=== PATIENT | male | born 1965 | race Caucasian/White ===

== ENCOUNTER → 2017-05-08 07:00 | Outpatient (CLI) | payer MEDICARE, MEDICAID, SELFPAY ==
--- NOTE | 2017-05-08 07:45 | MRI_ITS ---
STUDY: MRI RIGHT KNEE REASON FOR EXAM: Male, 51 years old. History of prior surgery. Difficulty walking with swelling and pain of right knee. History of knee buckling. TECHNIQUE: Standardized fat and water weighted pulse sequences were obtained in all 3 orthogonal planes. COMPARISON: X-rays of the right knee dated March 04, 2014. FINDINGS: There is a complex tear of the posterior horn of the medial meniscus (sagittal series 4 images 4-9, coronal series 6 images 8-12). There is mild extrusion of the body and anterior horn of the medial meniscus with mild thinning of the articular cartilage of the medial femorotibial compartment (coronal series 6 images 8-17). Normal medial collateral ligamentous complex (MCL). Normal distal semimembranosus, gracilis and semitendinosus tendons. Normal lateral meniscus. There is mild thinning of the articular cartilage of the lateral femorotibial compartment (coronal series 6 images 11-15). Normal lateral femoral condyle and tibial plateau. Normal proximal tibiofibular articulation. Normal lateral collateral (fibular) ligament. Normal popliteus tendon. Normal biceps femoris tendon. Normal anterior cruciate ligament (ACL). Normal posterior cruciate ligament (PCL). Normal congruent patellofemoral articulation. There is marked focal thinning of the articular cartilage of the medial patellar facet with subchondral bone marrow edema ((axial series 2 images 9-14). Normal medial and lateral patellar retinaculum. Normal quadriceps tendon. Normal patellar tendon. Normal Hoffa's fat pad. There is a joint effusion with a septated popliteal cyst (axial series 2 images A-16). The soft tissues are unremarkable. The otherwise visualized osseous structures are unremarkable. MRI/Lower Ext Joint Only (Routine) IMPRESSION: Complex tear of the posterior horn of the medial meniscus. Mild extrusion of the body and anterior horn of the medial meniscus. Mild thinning of the articular cartilage of the medial femorotibial compartment. Mild thinning of the articular cartilage of the lateral femorotibial compartment. Marked focal thinning of the articular cartilage of the medial patellar facet. Joint effusion with popliteal cyst. Electronically Signed: Rupesh Rojas MD at 13:34 EDT , Service support ,
== END ==
PROVIDERS: Family Provider Family Medicine; PCP Family Medicine; Visit Provider Family Medicine
DX: M23.90 Unspecified internal derangement of unspecified knee (principal)
CPT/HCPCS: 73721

== ENCOUNTER → 2017-05-16 12:56 | Outpatient (CLI) | payer MEDICARE, MEDICAID, SELFPAY ==
--- NOTE | 2017-05-16 12:59 | RAD_ITS ---
STUDY: X-RAY - RIGHT KNEE REASON FOR EXAM: Male, 51 years old. Chronic pain TECHNIQUE: Four view(s) of the knee were obtained. COMPARISON: March 04, 2014 FINDINGS: The distal femur is unremarkable. The proximal tibia is unremarkable. There is moderate narrowing of the medial femorotibial compartment. There is mild narrowing of the lateral femorotibial compartment. Normal patellofemoral articulation. There is minimal fullness above the patella. The soft tissue structures are unremarkable. RAD/Knee 4 or More Views IMPRESSION: There are degenerative changes with a medial predominance. There is a small joint effusion. Electronically Signed: Yoli Lira MD at 12:49 EDT Tel Direct: [phone], Service support ,
== END ==
PROVIDERS: Family Provider Family Medicine; PCP Family Medicine; Visit Provider Orthopaedic Surgery
DX: M25.561 Pain in right knee (principal)
CPT/HCPCS: 73564

== ENCOUNTER → 2017-09-12 07:01 | Outpatient (CLI) | payer MEDICARE, MEDICAID, SELFPAY ==
[2017-09-12 10:34] LABS: Hematocrit 46.8 % (40-54); Hemoglobin 15.8 g/dl (13.0-16.5); Mean Corp Hgb Conc 33.8 g/gl (32-36); Mean Corpuscular Hgb 29.8 pg (27.0-32.0); Mean Corpuscular Volume 88.3 fL (80-94); Mean Platelet Vol. 9.7 fl (6.2-12.0); Platelet Count 255 K/mm3 (150-450); RBC Distribution Width CV 13.9 % (11.6-14.6); RBC Distribution Width SD 44.6 fl (35.1-43.9); White Blood Count 12.8 K/mm3 (4.4-11.0)
[2017-09-12 10:37] LABS: Scan Indicated on CBC? Y/N NO
[2017-09-12 10:44] LABS: Magnesium 1.9 mg/dL (1.6-2.6)
[2017-09-12 10:50] LABS: Vitamin D,25 Hydroxy 33.7 ng/mL (29.95-100.01)
[2017-09-12 10:51] LABS: Protein, Urine (Random) 551.7 mg/dL (<11.9); Protein:Creat Ratio 4522 mg/g CRE (0-200)
[2017-09-15 13:11] LABS: Tacrolimus (FK506) 2.3 ng/mL (2.0-20.0)
== END ==
PROVIDERS: Family Provider Family Medicine; PCP Family Medicine; Visit Provider Internal Medicine Nephrology
DX: N18.2 Chronic kidney disease, stage 2 (mild) (principal); N25.81 Secondary hyperparathyroidism of renal origin; D89.9 Disorder involving the immune mechanism, unspecified
CPT/HCPCS: 36415; 80197; 82306; 82570; 83735; 83970; 84156; 85027

== ENCOUNTER → 2017-10-01 10:46 | Outpatient (CLI) | payer MEDICARE, MEDICAID, SELFPAY ==
[2017-10-01 12:09] LABS: Color, Urine Yellow (Yellow); Glucose, Dipstick Normal (Normal); Ketone-Dipstick 5 mg/dl (Negative); Leukocyte Esterase-Dipstick 25 /ul (Negative); Nitrite-Dipstick Negative (Negative); Occult Blood-Urine 10 /ul (Negative); Protein-Dipstick 500 mg/dl (Negative); Urine Bilirubin Dipstick Negative (Negative); Urine Clarity Clear (Clear); Urine Urobilinogen Normal (Normal)
[2017-10-01 12:51] LABS: Albumin, Serum 2.9 g/dL (3.2-5.0); BUN 21 mg/dL (7-18); BUN/Creat Ratio 12.5 RATIO (10-20); Calcium,Total 8.6 mg/dL (8.5-10.1); Chloride 111 mmol/L (98-107); Cholesterol 196 mg/dL (200); Creatinine, Serum 1.68 mg/dL (0.70-1.30); EST Glomerular Filtration Rate 46 mL/min (>60); Est Glom Filt Rate - Afr Amer 55 mL/min (>60); Glucose 87 mg/dL (74-106); High Density Lipoprotein 55 mg/dL; Phosphorus 2.9 mg/dL (2.5-4.9); Potassium 3.7 mmol/L (3.5-5.1); Sodium Level 142 mmol/L (136-145); Triglycerides 163 mg/dL; Very Low Density Lipoprotein 33 mg/dL (5-40)
[2017-10-01 12:52] LABS: Protein, Urine (Random) 461.9 mg/dL (<11.9); Protein:Creat Ratio 2321 mg/g CRE (0-200)
[2017-10-03 11:18] LABS: Tacrolimus (FK506) 4.8 ng/mL (2.0-20.0)
== END ==
PROVIDERS: Internal Medicine Nephrology; Family Provider Family Medicine; PCP Family Medicine; Visit Provider Family Medicine
DX: I12.9 Hypertensive chronic kidney disease with stage 1 through stage 4 chronic kidney disease, or unspecified chronic kidney disease (principal); N18.2 Chronic kidney disease, stage 2 (mild); D89.9 Disorder involving the immune mechanism, unspecified; Z94.0 Kidney transplant status
CPT/HCPCS: 36415; 80061; 80069; 80197; 81002; 82043; 82570; 84156

== ENCOUNTER → 2017-11-28 09:42 | Outpatient (CLI) | payer MEDICARE, MEDICAID, SELFPAY ==
[2017-11-28 12:37] LABS: Protein:Creat Ratio 1743 mg/g CRE (0-200)
[2017-11-28 13:03] LABS: Albumin, Serum 3.1 g/dL (3.2-5.0); BUN 12 mg/dL (7-18); BUN/Creat Ratio 8.9 RATIO (10-20); Calcium,Total 8.6 mg/dL (8.5-10.1); Chloride 107 mmol/L (98-107); Creatinine, Serum 1.35 mg/dL (0.70-1.30); EST Glomerular Filtration Rate 59 mL/min (>60); Est Glom Filt Rate - Afr Amer 71 mL/min (>60); Glucose 86 mg/dL (74-106); Phosphorus 2.2 mg/dL (2.5-4.9); Potassium 3.6 mmol/L (3.5-5.1); Sodium Level 141 mmol/L (136-145)
[2017-11-30 09:13] LABS: Tacrolimus (FK506) 5.6 ng/mL (2.0-20.0)
== END ==
PROVIDERS: Family Provider Family Medicine; PCP Family Medicine; Referring Provider Internal Medicine Nephrology; Visit Provider Internal Medicine Nephrology
DX: N18.2 Chronic kidney disease, stage 2 (mild) (principal); D89.9 Disorder involving the immune mechanism, unspecified
CPT/HCPCS: 36415; 80069; 80197; 82570; 84156

== ENCOUNTER 2017-12-22 07:01 | Emergency (ER) | payer MEDICARE, MEDICAID, SELFPAY ==
[2017-12-22 07:02] VITALS: BP 157/105; PULSE 102; RESP 17; TEMP 36.8; O2SAT 97
--- NOTE | 2017-12-22 07:35 | ED.VIS.GEN ---
History of Present Illness Chief Complaint: Other, Pain/Inj Informant: Patient Onset: Days - 3 Context: Gradual Onset Timing: Continuous Quality: ache Location: bilat neck Current Severity: Severe Maximum Severity: Severe Worsened by: moving head Relieved by: nothing Associated Symptoms: muscle spasms. no numb/weakness in extremities. no direct injury. 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 States his low back started hurting a little in the beginning but that is not an issue as much as his neck, which has been gradually getting worse and worse, now is spasming in giving him severe pain. - Past Medical History (1) History of renal transplant Status: Chronic Comment: 2005 for congenital defect (2) Hyperlipidemia Status: Chronic (3) Hypertension Status: Chronic Past Medical History - Allergies and Home Meds Allergies/Adverse Reactions: Allergies No Known Allergies Allergy (Verified 12/22/17 07:04) Primary Care Physician: Jesus Collins MD [Primary Care Provider] - Smoking Status: Never smoker Review of Systems General: Denies: Chills, Fever Gastrointestinal: Denies: Nausea, Vomiting Musculoskeletal: Reports: Neck pain, Back pain. Denies: Swelling, Extremity Pain Skin: Denies: Rash, Wounds Neurological: Denies: Headache, Weakness, Parasthesia, Numbness Physical Exam Vital Signs/Narrative: Vital Signs Temp Pulse Resp BP Pulse Ox 12/22/17 07:02 98.2 F 102 H 17 157/105 H 97 Inital Vital Signs reviewed: Yes General: Well nourished, Well developed Head: Normocephalic, Atraumatic Eyes: Perrl, EOMI ENT: Moist mucous membranes, No rhinorrhea Neck: No lymphadenopathy, No JVD, - - Tenderness in the lateral neck musculature, mid neck and into the top of the trapezius toward the shoulders, no bony tenderness, palpation causes spasms and severe pain. Back: Normal Inspection. Negative for: Spinal tenderness Extremities: Nontender, No edema Skin: Normal color, No rash Neurological: Alert, Oriented x3, Cranial nerves II-XII grossly intact, Normal Strength, Normal Sensation, Normal Gait Psychological: Normal affect Diagnostic/Tx/Re-eval - Medical Decision Making Consistent with myofascial strain with muscle spasms. Will treat with Norflex and morphine, along with Zofran prophylaxis. Avoiding Toradol due to his renal transplant. We will give him a prescription for analgesics and a work note. ED Disposition - Plan for ED Patient: Disposition: Home or Assisted Living Chief Complaint: Other, Pain/Inj Diagnosis: Acute cervical myofascial strain Prescriptions: Hydrocodone Bitart/Apap 5-325 [[place] 5MG-325MG] 1 tablet PO Q4H PRN PRN 2 Days #10 tablet PRN Reason: Pain Cyclobenzaprine [Flexeril] 10 mg PO TID PRN #20 tablet PRN Reason: Muscle Spasm Referrals: Jesus Collins MD [Primary Care Provider] - 1 Week if not improving
--- NOTE | 2017-12-22 07:41 | ED.DCSUM_ITS ---
History of Present Illness Chief Complaint: Other, Pain/Inj Informant: Patient Onset: Days - 3 Context: Gradual Onset Timing: Continuous Quality: ache Location: bilat neck Current Severity: Severe Maximum Severity: Severe Worsened by: moving head Relieved by: nothing Associated Symptoms: muscle spasms. no numb/weakness in extremities. no direct injury. 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 States his low back started hurting a little in the beginning but that is not an issue as much as his neck, which has been gradually getting worse and worse, now is spasming in giving him severe pain. - Past Medical History (1) History of renal transplant Status: Chronic Comment: 2005 for congenital defect (2) Hyperlipidemia Status: Chronic (3) Hypertension Status: Chronic Past Medical History - Allergies and Home Meds Allergies/Adverse Reactions: Allergies No Known Allergies Allergy (Verified 12/22/17 07:04) Primary Care Physician: Jesus Collins MD [Primary Care Provider] - Smoking Status: Never smoker Review of Systems General: Denies: Chills, Fever Gastrointestinal: Denies: Nausea, Vomiting Musculoskeletal: Reports: Neck pain, Back pain. Denies: Swelling, Extremity Pain Skin: Denies: Rash, Wounds Neurological: Denies: Headache, Weakness, Parasthesia, Numbness Physical Exam Vital Signs/Narrative: Vital Signs Temp Pulse Resp BP Pulse Ox 12/22/17 07:02 98.2 F 102 H 17 157/105 H 97 Inital Vital Signs reviewed: Yes General: Well nourished, Well developed Head: Normocephalic, Atraumatic Eyes: Perrl, EOMI ENT: Moist mucous membranes, No rhinorrhea Neck: No lymphadenopathy, No JVD, - - Tenderness in the lateral neck musculature, mid neck and into the top of the trapezius toward the shoulders, no bony tenderness, palpation causes spasms and severe pain. Back: Normal Inspection. Negative for: Spinal tenderness Extremities: Nontender, No edema Skin: Normal color, No rash Neurological: Alert, Oriented x3, Cranial nerves II-XII grossly intact, Normal Strength, Normal Sensation, Normal Gait Psychological: Normal affect Diagnostic/Tx/Re-eval - Medical Decision Making Consistent with myofascial strain with muscle spasms. Will treat with Norflex and morphine, along with Zofran prophylaxis. Avoiding Toradol due to his renal transplant. We will give him a prescription for analgesics and a work note. ED Disposition - Plan for ED Patient: Disposition: Home or Assisted Living Chief Complaint: Other, Pain/Inj Diagnosis: Acute cervical myofascial strain Prescriptions: Hydrocodone Bitart/Apap 5-325 [[place] 5MG-325MG] 1 tablet PO Q4H PRN PRN 2 Days #10 tablet PRN Reason: Pain Cyclobenzaprine [Flexeril] 10 mg PO TID PRN #20 tablet PRN Reason: Muscle Spasm Referrals: Jesus Collins MD [Primary Care Provider] - 1 Week if not improving
[2017-12-22] MEDS: Ondansetron ODT 4 MG Tablet 8 MG PO (07:45)
[2017-12-22] MEDS: morphine 10 MG/ML Syringe SC (07:45)
[2017-12-22] MEDS: Orphenadrine 60 MG/2 ML Ampul IM (07:45)
--- NOTE | 2017-12-22 07:48 | ED.DCSUM_ITS ---
- ER Visit Summary Discharge papers only -- see other dictation for H&P. ED Disposition - Plan for ED Patient: Disposition: Home or Assisted Living Chief Complaint: Other, Pain/Inj Diagnosis: Acute cervical myofascial strain Instructions: ED Sprain Strain Neck Prescriptions: Hydrocodone Bitart/Apap 5-325 [[place] 5MG-325MG] 1 tablet PO Q4H PRN PRN 2 Days #10 tablet PRN Reason: Pain Cyclobenzaprine [Flexeril] 10 mg PO TID PRN #20 tablet PRN Reason: Muscle Spasm Referrals: Jesus Collins MD [Primary Care Provider] - 1 Week if not improving
[2017-12-22 08:46] VITALS: PULSE 98; RESP 16
== END 2017-12-22 08:46 | disposition home or self-care (01) ==
PROVIDERS: Emergency Provider Emergency Medicine; Family Provider Family Medicine; PCP Family Medicine
DX: S16.1XXA Strain of muscle, fascia and tendon at neck level, initial encounter (principal); E78.5 Hyperlipidemia, unspecified; I10 Essential (primary) hypertension; Z94.0 Kidney transplant status; Z79.82 Long term (current) use of aspirin; Z79.899 Other long term (current) drug therapy; X50.3XXA Overexertion from repetitive movements, initial encounter; X50.1XXA Overexertion from prolonged static or awkward postures, initial encounter; Y93.89 Activity, other specified; Y92.89 Other specified places as the place of occurrence of the external cause; Y99.0 Civilian activity done for income or pay
CPT/HCPCS: 96372; 99282

== ENCOUNTER → 2017-12-27 08:03 | Outpatient (CLI) | payer MEDICARE, MEDICAID, SELFPAY ==
--- NOTE | 2017-12-27 08:05 | RAD_ITS ---
STUDY: X-RAY - CERVICAL SPINE REASON FOR EXAM: Male, 52 years old. Neck pain x1 week after working on ceiling, unable to raise chin up, limited range of motion. TECHNIQUE: 7 view(s) of the cervical spine were obtained. COMPARISON: CT cervical spine 04/29/2016. FINDINGS: Normal anterior atlantoaxial articulation. Normal odontoid process. There is straightening of the normal cervical lordosis. Mild spondylolisthesis and disc space narrowing C5-C6, C6-C7. Otherwise normal disc space heights. There is mild left C5-C6 osseous foraminal stenosis. The soft tissue structures are unremarkable. RAD/Cerv Spine 4 or 5 Views IMPRESSION: Stable mild degenerative changes. There is straightening of the normal lordotic curve, a nonspecific finding, which may be due to positioning or which might be due to muscle spasm. Electronically Signed: Yamila Be MD at 7:34 EST , Service support ,
== END ==
PROVIDERS: Family Provider Family Medicine; PCP Family Medicine; Visit Provider Family Medicine
DX: M50.30 Other cervical disc degeneration, unspecified cervical region (principal)
CPT/HCPCS: 72050

== ENCOUNTER 2018-02-14 12:00 | Outpatient (RCR) | payer MEDICARE, MEDICAID, SELFPAY ==
--- NOTE | 2018-01-04 08:51 | HP.PTEVAL ---
Patient's Visit Information ALYSIA HERNANDEZ is a 52 year old M referred to Physical Therapy by John Collins with a diagnosis of c/s DDD. Date of Evaluation: 01/04/18 Physical Therapist: Aldo Desai DPT, OC - Visit Plan Frequency: 3x /Week Duration: 2-4 Weeks Plan: 3x/week for 2-4 weeks for gradual Natalia based ex progression as symptoms allow monitorring c/s ext adn L rot adn subjective. May do Manual traction adn PROm as needed and joint mobs ext lower c/s as needed. Progress to postural and c/s strengtha dn body mechanics. 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 [place] a pop a week ago in upper neck adn had sharp pain R base of skull in neck. Given muscle relaxers adn pain pills because it was hard to lie or get in and out of bed. Slept in a chair for weeks. Was letting dog out adn moving neck last week and felt some snaps. Had a little bit of pain and hard to move neck. Got LAWRENCE later that day. Hard to move out of bed. Now seems to be moving OK but has pulling in L UT and into back of UE. Feels tightness centrally at base of neck. No LAWRENCE lately. No numbness or tingling noticed in arm lately. Cooked [place] yesterday and it felt painful L scap. Movement now feels normal and has had no pain pills in 4 days. Slept well last night. 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 Basic ADLS are Ok now but was in bed with this at first. Overall feeling good but afraid to work due to not knowing if it will get painful. - Pain Neck L scap Pain Intensity (Out of 10): 0 Pain Intensity Range: 0, 9 - Objective C/S aROM R rot 65, L rot 40 self limtied, extension 25 with increase pull L scap. + L c/s compression test. Tender L UT and into c/s paraspinals. reflexes 2/3 bi and tri. Sensation UE WNL to gross light touch. Strength UE WNL B without myotomal abnormalities. Good scap mobility but hesitant. Repeated motions: protrusion: peripheralizes. retraction:P central pain, B. ret/ext: centralizes, increased ext to 45 adn L rotation to 60 - Goals Goal 1:: full c/s AROM without pain Goal Time Frame: 2-4 Weeks Goal 2:: Sleep without waking Goal Time Frame: 2-4 Weeks Goal 3:: Pain and tightness 90% better overall and 1/10 at worst. Goal Time Frame: 2-4 Weeks Goal 4:: I approp HEp to limit future problems. Goal Time Frame: 2-4 Weeks - Rehabilitation Potential Physical Therapy Diagnosis: c/s discal pathology. Rehabilitation Potential: Good - Anticipated Interventions Patient/Client Instruction: Educate patient on: Condition, Plan of Care For the Purpose of:: To decrease pain, To increase ROM, To increase tolerance to activity/condition/position Therapeutic Exercise to Include: Strength training, Postural training, Natalia Exercises, Scapular Strength/Stabilization For the Purpose of:: To decrease pain, To increase ROM, To increase tolerance to activity/condition/position Manual Therapy Techniques to Include: Passive ROM, Soft tissue mobilization For the Purpose of:: To increase ROM, To increase tolerance to activity/condition/position Thermo therapy (hot pack): Yes Intermittent cervical traction: Yes For the Purpose of:: To decrease pain, To increase ROM Thank you for the opportunity to evaluate your patient. For Medicare and Medicare HMO plans, please review the plan of care and approve it. It will need to be FAXED BACK to us at [phone] for Medicare purposes. Please let me know if there are questions or concerns regarding this plan of care. Physician Signature: Date:
--- NOTE | 2018-02-14 12:41 | HP.PTDCSUM ---
HP - PT D/C Summary It has been my pleasure to treat ALYSIA HERNANDEZ under orders from Jesus Collins MD, for the diagnosis of c/s DDD for a total of 13 visit(s). Discharge Date: 02/14/18 Please see the following information for a summary of their discharge status. - Subjective Subjective: No more pain in neck. None in two weeks. Activity level normal and doing a lot lately. Not doing any employment related work as it is slow at the holidays. Sleep is OK as far as neck goes. HEP includes c/s retraction and ext and postural focus. Doing bands daily. Using red 3x20. No f/u with doctor scheduled. - Pain Neck L scap Pain Intensity (Out of 10): 0 - Overall Improvement % Improvement: 95 - Objective Objective/Function: 72 L rot(74 after OP). 75 R rot. 75 extMuch better ROM and no pain today. UE AROM full but still weak with flexion and abd (4) and ext rotation(4-). Will continue to work on these at home. - Goals Goal 1:: full c/s AROM without pain Goal Progress: Goal Met Goal 2:: Sleep without waking Goal Progress: Goal Met Goal 3:: Pain and tightness 90% better overall and 1/10 at worst. Goal Progress: Goal Met Goal 4:: I approp HEp to limit future problems. Goal Progress: Goal Met - Plan Plan: D/C to HEP - D/C Information Discharge Comments: Doing well adn will continue via HEP. contact doctor if pain resumes. If there are questions or concerns regarding this patient's physical therapy, please feel free to call me at [phone]. Thank you for the referral of this patient. Sincerely, Aldo Desai, DPT, OCS, CSCS
== END 2018-02-14 19:00 | disposition home or self-care (01) ==
LOC: PT 12:00
PROVIDERS: Family Provider Family Medicine; PCP Family Medicine; Referring Provider Family Medicine; Visit Provider Family Medicine
DX: M50.30 Other cervical disc degeneration, unspecified cervical region (principal); R20.2 Paresthesia of skin
CPT/HCPCS: 97110; 97140; 97162; 97530

== ENCOUNTER → 2018-02-21 11:10 | Outpatient (CLI) | payer MEDICARE, SELFPAY ==
[2018-02-21 12:08] LABS: Color, Urine Yellow (Yellow); Glucose, Dipstick Normal (Normal); Ketone-Dipstick Negative (Negative); Leukocyte Esterase-Dipstick Negative /ul (Negative); Nitrite-Dipstick Negative (Negative); Occult Blood-Urine 10 /ul (Negative); Protein-Dipstick 100 mg/dl (Negative); Specific Gravity, Urine 1.015 (1.002-1.030); Urine Bilirubin Dipstick Negative (Negative); Urine Clarity Clear (Clear); Urine Urobilinogen Normal (Normal)
[2018-02-21 12:45] LABS: AST(SGOT) 17 U/L (15-37); Alanine Aminotransfer ALT/SGPT 34 U/L (16-61); Albumin, Serum 3.3 g/dL (3.2-5.0); Alkaline Phosphatase 90 U/L (45-117); Anion Gap 11 (5-15); BUN 17 mg/dL (7-18); BUN/Creat Ratio 10.5 RATIO (10-20); Calcium,Total 9.2 mg/dL (8.5-10.1); Chloride 106 mmol/L (98-107); Creatinine, Serum 1.62 mg/dL (0.70-1.30); EST Glomerular Filtration Rate 48 mL/min (>60); Est Glom Filt Rate - Afr Amer 58 mL/min (>60); Globulin 3.3 g/dL (2.2-4.2); Glucose 106 mg/dL (74-106); Magnesium 1.8 mg/dL (1.6-2.6); Phosphorus 1.8 mg/dL (2.5-4.9); Potassium 3.6 mmol/L (3.5-5.1); Protein, Total 6.6 g/dL (6.4-8.2); Sodium Level 143 mmol/L (136-145)
[2018-02-21 12:50] LABS: Protein, Urine (Random) 269.1 mg/dL (<11.9); Protein:Creat Ratio 1431 mg/g CRE (0-200)
[2018-02-21 12:52] LABS: Vitamin D,25 Hydroxy 32.2 ng/mL (29.95-100.01)
[2018-02-21 13:59] LABS: Hematocrit 43.1 % (40-54); Hemoglobin 14.6 g/dl (13.0-16.5); Mean Corp Hgb Conc 33.9 g/gl (32-36); Mean Corpuscular Hgb 29.4 pg (27.0-32.0); Mean Corpuscular Volume 86.9 fL (80-94); Mean Platelet Vol. 9.5 fl (6.2-12.0); Platelet Count 294 K/mm3 (150-450); RBC Distribution Width CV 14.2 % (11.6-14.6); RBC Distribution Width SD 44.7 fl (35.1-43.9); Red Blood Count 4.96 M/mm3 (4.6-6.2); Scan Indicated on CBC? Y/N NO; White Blood Count 5.8 K/mm3 (4.4-11.0)
[2018-02-21 14:15] LABS: PTHIN 89.5 pg/mL (18.4-80.1)
== END ==
PROVIDERS: Family Provider Family Medicine; PCP Family Medicine; Referring Provider Internal Medicine Nephrology; Visit Provider Internal Medicine Nephrology
DX: N18.2 Chronic kidney disease, stage 2 (mild) (principal); N25.81 Secondary hyperparathyroidism of renal origin; D89.9 Disorder involving the immune mechanism, unspecified; E83.39 Other disorders of phosphorus metabolism; Z94.0 Kidney transplant status
CPT/HCPCS: 36415; 80053; 80197; 81002; 82043; 82306; 82570; 83735; 83970; 84100; 84156; 85027

== ENCOUNTER → 2018-04-01 10:28 | Outpatient (CLI) | payer MEDICARE, SELFPAY ==
[2018-04-04 09:25] LABS: Tacrolimus (FK506) 4.5 ng/mL (2.0-20.0)
== END ==
PROVIDERS: Family Provider Family Medicine; PCP Family Medicine; Referring Provider Internal Medicine Nephrology; Visit Provider Internal Medicine Nephrology
DX: D89.9 Disorder involving the immune mechanism, unspecified (principal)
CPT/HCPCS: 36415; 80197

== ENCOUNTER → 2018-07-17 | Outpatient (CLI) | payer MEDICARE, SELFPAY ==
[2018-07-17 12:08] LABS: Hematocrit 43.6 % (40-54); Hemoglobin 14.6 g/dl (13.0-16.5); Mean Corp Hgb Conc 33.5 g/gl (32-36); Mean Corpuscular Hgb 28.6 pg (27.0-32.0); Mean Corpuscular Volume 85.3 fL (80-94); Mean Platelet Vol. 9.5 fl (6.2-12.0); Platelet Count 324 K/mm3 (150-450); RBC Distribution Width CV 13.2 % (11.6-14.6); RBC Distribution Width SD 40.3 fl (35.1-43.9); Red Blood Count 5.11 M/mm3 (4.6-6.2); Scan Indicated on CBC? Y/N NO; White Blood Count 9.8 K/mm3 (4.4-11.0)
[2018-07-17 12:25] LABS: Color, Urine Yellow (Yellow); Glucose, Dipstick Normal (Normal); Ketone-Dipstick Negative (Negative); Leukocyte Esterase-Dipstick Negative /ul (Negative); Nitrite-Dipstick Negative (Negative); Occult Blood-Urine 10 /ul (Negative); Protein-Dipstick 500 mg/dl (Negative); Specific Gravity, Urine 1.015 (1.002-1.030); Urine Bilirubin Dipstick Negative (Negative); Urine Clarity Sl. Cloudy (Clear); Urine Urobilinogen Normal (Normal)
[2018-07-17 12:47] LABS: PTHIN 154.4 pg/mL (18.4-80.1)
[2018-07-17 12:48] LABS: Vitamin D,25 Hydroxy 20.4 ng/mL (29.95-100.01)
[2018-07-17 12:59] LABS: Albumin, Serum 2.4 g/dL (3.2-5.0); BUN 26 mg/dL (7-18); BUN/Creat Ratio 14.4 RATIO (10-20); Calcium,Total 8.4 mg/dL (8.5-10.1); Chloride 111 mmol/L (98-107); Cholesterol 233 mg/dL (200); Creatinine, Serum 1.81 mg/dL (0.70-1.30); EST Glomerular Filtration Rate 42 mL/min (>60); Est Glom Filt Rate - Afr Amer 51 mL/min (>60); Glucose 148 mg/dL (74-106); High Density Lipoprotein 51 mg/dL; Phosphorus 2.4 mg/dL (2.5-4.9); Potassium 3.5 mmol/L (3.5-5.1); Sodium Level 143 mmol/L (136-145); Triglycerides 264 mg/dL; Very Low Density Lipoprotein 53 mg/dL (5-40)
[2018-07-17 13:33] LABS: Protein, Urine (Random) 859.5 mg/dL (<11.9); Protein:Creat Ratio 4829 mg/g CRE (0-200)
== END | disposition home or self-care (01) ==
LOC: MTLAB 09:48
PROVIDERS: Family Provider Family Medicine; PCP Family Medicine; Referring Provider Internal Medicine Nephrology; Visit Provider Internal Medicine Nephrology
DX: R80.9 Proteinuria, unspecified (principal); N18.2 Chronic kidney disease, stage 2 (mild); N25.81 Secondary hyperparathyroidism of renal origin; E78.5 Hyperlipidemia, unspecified
CPT/HCPCS: 36415; 80061; 80069; 81002; 82043; 82306; 82570; 83970; 84156; 85027

== ENCOUNTER → 2018-10-16 | Outpatient (CLI) | payer MEDICARE, SELFPAY ==
[2018-10-16 12:33] LABS: Hematocrit 41.2 % (40-54); Hemoglobin 13.6 g/dL (13.0-16.5); Mean Corpuscular Hgb 29.1 pg (27.0-32.0); Mean Platelet Vol. 9.5 fl (6.2-12.0); Platelet Count 230 K/mm3 (150-450); RBC Distribution Width CV 13.2 % (11.6-14.6); RBC Distribution Width SD 42.4 fl (35.1-43.9); Red Blood Count 4.68 M/mm3 (4.6-6.2); White Blood Count 8.2 K/mm3 (4.4-11.0)
[2018-10-16 12:51] LABS: Color, Urine Yellow (Yellow); Glucose, Dipstick Normal (Normal); Ketone-Dipstick Negative (Negative); Leukocyte Esterase-Dipstick 25 /ul (Negative); Nitrite-Dipstick Negative (Negative); Occult Blood-Urine Negative /ul (Negative); Protein-Dipstick 500 mg/dl (Negative); Specific Gravity, Urine 1.015 (1.002-1.030); Urine Bilirubin Dipstick Negative (Negative); Urine Clarity Sl. Cloudy (Clear); Urine Urobilinogen Normal (Normal); Urine pH 6.5 (5.0 - 8.0)
[2018-10-16 12:55] LABS: Albumin, Serum 2.6 g/dL (3.2-5.0); BUN 26 mg/dL (7-18); BUN/Creat Ratio 15.1 RATIO (10-20); Calcium,Total 8.2 mg/dL (8.5-10.1); Chloride 111 mmol/L (98-107); Creatinine, Serum 1.72 mg/dL (0.70-1.30); EST Glomerular Filtration Rate 44 mL/min (>60); Est Glom Filt Rate - Afr Amer 54 mL/min (>60); Glucose 133 mg/dL (74-106); Phosphorus 2.1 mg/dL (2.5-4.9); Potassium 3.8 mmol/L (3.5-5.1); Sodium Level 142 mmol/L (136-145)
[2018-10-16 12:57] LABS: Vitamin D,25 Hydroxy 18.5 ng/mL (29.95-100.01)
[2018-10-16 13:00] LABS: PTHIN 110.7 pg/mL (18.4-80.1)
[2018-10-16 13:57] LABS: Microalbumin:Creatinine Ratio 3795.8 mg/g CRE (<30 mg/g CRE); Protein, Urine (Random) 975.6 mg/dL (<11.9); Protein:Creat Ratio 4065 mg/g CRE (0-200)
== END | disposition home or self-care (01) ==
LOC: MTLAB 10:12
PROVIDERS: Family Provider Family Medicine; PCP Family Medicine; Referring Provider Internal Medicine Nephrology; Visit Provider Internal Medicine Nephrology
DX: N18.2 Chronic kidney disease, stage 2 (mild) (principal)
CPT/HCPCS: 36415; 80069; 81002; 82043; 82306; 82570; 83970; 84156; 85027

== ENCOUNTER → 2018-10-23 | Outpatient (CLI) | payer MEDICARE, SELFPAY ==
[2018-10-23 10:15] LABS: Color, Urine Yellow (Yellow); Glucose, Dipstick Normal (Normal); Ketone-Dipstick Negative (Negative); Leukocyte Esterase-Dipstick Negative /ul (Negative); Nitrite-Dipstick Negative (Negative); Occult Blood-Urine Negative /ul (Negative); Protein-Dipstick 500 mg/dl (Negative); Specific Gravity, Urine 1.015 (1.002-1.030); Urine Bilirubin Dipstick Negative (Negative); Urine Clarity Clear (Clear); Urine Urobilinogen Normal (Normal)
[2018-10-23 10:40] LABS: Prothrombin Time (Protime)PT. 13.2 SECONDS (11.7-14.9)
[2018-10-23 10:41] LABS: Partial Thromboplast Time 28.6 Seconds (24.1-36.2)
[2018-10-23 11:04] LABS: Albumin, Serum 2.8 g/dL (3.2-5.0); BUN 22 mg/dL (7-18); BUN/Creat Ratio 12.9 RATIO (10-20); Calcium,Total 8.5 mg/dL (8.5-10.1); Chloride 111 mmol/L (98-107); Cholesterol 192 mg/dL (200); Creatinine, Serum 1.71 mg/dL (0.70-1.30); EST Glomerular Filtration Rate 45 mL/min (>60); Est Glom Filt Rate - Afr Amer 54 mL/min (>60); Glucose 78 mg/dL (74-106); High Density Lipoprotein 54 mg/dL; Phosphorus 2.6 mg/dL (2.5-4.9); Potassium 3.8 mmol/L (3.5-5.1); Sodium Level 143 mmol/L (136-145); Triglycerides 208 mg/dL; Very Low Density Lipoprotein 42 mg/dL (5-40)
[2018-10-23 12:03] LABS: Microalbumin:Creatinine Ratio 3353.8 mg/g CRE (<30 mg/g CRE); Protein, Urine (Random) 391.9 mg/dL (<11.9); Protein:Creat Ratio 4019 mg/g CRE (0-200)
[2018-10-28 10:13] LABS: Tacrolimus (FK506) 4.4 ng/mL (2.0-20.0)
== END | disposition home or self-care (01) ==
LOC: MTLAB 07:38
PROVIDERS: Family Provider Family Medicine; PCP Family Medicine; Referring Provider Internal Medicine Nephrology; Visit Provider Internal Medicine Nephrology
DX: R80.9 Proteinuria, unspecified (principal); D89.9 Disorder involving the immune mechanism, unspecified; N18.2 Chronic kidney disease, stage 2 (mild)
CPT/HCPCS: 36415; 80061; 80069; 80197; 81002; 82043; 82570; 84156; 85610; 85730

== ENCOUNTER 2018-11-07 06:08 | Emergency (ER) | payer MEDICARE, SELFPAY ==
[2018-11-07 06:09] VITALS: BP 153/92; PULSE 78; RESP 16; TEMP 36.5; O2SAT 97; BMI 27.8
--- NOTE | 2018-11-07 06:38 | ED.VIS.GEN ---
History of Present Illness Chief Complaint: Eye Problem Informant: Patient Narrative: Stated that he is having some discomfort in his left eye. He woke up with eye discomfort yesterday. He noticed some redness. No injury. He had this happen a few months ago and it went away. He states that this is slight blurry with bright light. He has a headache due to the discomfort. No history of cluster headaches or migraines. No home treatment. Current severity is mild to moderate. No history of glaucoma. 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 (3) Hyperlipidemia Status: Chronic (4) Right bundle branch block Status: Chronic Past Medical History - Allergies and Home Meds Allergies/Adverse Reactions: Allergies No Known Allergies Allergy (Verified 11/07/18 06:09) Primary Care Physician: Jesus Collins MD [Primary Care Provider] - Prior records reviewed: Yes Past Medical History: - - See problem list Surgical History: noncontributory Smoking Status: Never smoker Alcohol: None Drugs: None Review of Systems General: Denies: Chills, Fever, Sweats Eyes: Reports: Visual changes - left, - - Left ocular pain. Denies: Visual changes - bilaterally, Diplopia ENT: Denies: Rhinorrhea, Sore throat Cardiovascular: Denies: Chest pain, Palpitations Respiratory: Denies: Dyspnea, Cough, Dyspnea on exertion Gastrointestinal: Denies: Abdominal pain, Nausea, Vomiting, Diarrhea, Melena, Hematochezia Genitourinary: Denies: Dysuria, Hematuria, Frequency Musculoskeletal: Denies: Back pain, Extremity Pain Skin: Denies: Rash, Wounds Neurological: Reports: Headache. Denies: Weakness, Numbness Physical Exam Vital Signs/Narrative: Vital Signs Temp Pulse Resp BP Pulse Ox 11/07/18 06:09 97.7 F L 78 16 153/92 H 97 General: Well nourished, Well developed, No Acute Distress Head: Normocephalic, Atraumatic Eyes: Perrl, EOMI, - - No mid dilated pupil. Left ocular pressure 18. Positive scleral inflammation on the medial portion of the globe on the left. No mid dilated pupil. No STEMI cornea. Posterior elements normal. Extraocular movements normal. ENT: Moist mucous membranes, No rhinorrhea Neck: Supple, Nontender Cardiovascular: Regular rate, Regular rhythm, No murmurs Respiratory: No distress, CTA bilaterally, Chest nontender Abdomen: Soft, Nontender, Nondistended, Normal bowel sounds Back: Nontender, Normal Inspection Extremities: Nontender, No edema Skin: Normal color, No rash Neurological: Alert, Oriented x3, Cranial nerves II-XII grossly intact, Normal Strength, Normal Sensation Psychological: Normal affect, Normal Mood Diagnostic/Tx/Re-eval - Medical Decision Making Tetracaine was inserted into the eye with good relief of symptoms. Pressure was normal. Floor seen was used without uptake. No evidence of corneal abrasion. No evidence of glaucoma. I do not think this is a cluster headache. I feel the patient likely has a scleritis or subconjunctival hemorrhage that is bothering him. His globe is sore to touch. He was given tetracaine. He will follow-up with ophthalmology given a referral. ED Disposition - Plan for ED Patient: Disposition: Home or Assisted Living Diagnosis: Scleritis Instructions: Subconjunctival Hemorrhage Prescriptions: traMADol [Ultram] 1 - 2 tab PO Q4H PRN PRN 3 Days #15 tab PRN Reason: Pain Prescription Printed Referrals: Jim Jerry MD [STAFF PHYSICIAN] -
[2018-11-07] MEDS: traMADol 50 MG Tablet 100 MG PO (06:46)
[2018-11-07 06:49] VITALS: BP 134/80; PULSE 87; RESP 18; O2SAT 98
== END 2018-11-07 06:50 | disposition home or self-care (01) ==
LOC: ED 06:46
PROVIDERS: Emergency Provider Emergency Medicine; Family Provider Family Medicine; PCP Family Medicine
DX: H15.002 Unspecified scleritis, left eye (principal); I10 Essential (primary) hypertension; E78.5 Hyperlipidemia, unspecified; Z94.0 Kidney transplant status; Z79.899 Other long term (current) drug therapy
CPT/HCPCS: 99283

== ENCOUNTER → 2018-11-13 | Outpatient (CLI) | payer MEDICARE, SELFPAY ==
[2018-11-07 06:09] VITALS: BMI 27.8
[2018-11-13] VITALS (8 sets, daily range): BP systolic 90–110; BP diastolic 54–67; PULSE 61–76; RESP 12–18; TEMP 37.1; O2SAT 93–97; BMI 27.8
--- NOTE | 2018-11-13 07:42 | CT_ITS ---
PROCEDURE: CT GUIDED PERCUTANEOUS KIDNEY BIOPSY. DATE: November 13, 2018. INDICATION: Male, 53 years old. Possible rejection of the right-sided transplanted kidney. PHYSICIAN: Richard Pérez M.D. MEDICATIONS: 2 mg of Versed and 50 mcg of fentanyl intravenously. The conscious sedation protocol was followed. Conscious sedation was started at 9:00 AM estimated at 9:15 AM the patient was monitored by department nurse. ACCESS SITE: Right transplanted kidney. NEEDLE: 18-gauge core biopsy needle. SPECIMEN: 4 18-gauge cores. EBL: None. COMPLICATIONS: None immediate. RADIATION DOSAGE (If Supplied By Facility): CTDIvol = ( 15 ) mGy, DLP = ( 322.05 ) mGycm The risks, benefits, and alternatives to the procedure and sedation were explained to the patient. The specific risk of hemorrhage requiring further treatment or intervention was detailed and accepted. Written informed consent was obtained. The patient was placed on the CT table in the prone position. Multiple axial images were obtained from the lung base through the caudal extent of the kidneys. An appropriate entry site was identified and a humberto made on the skin. The skin overlying the [ right] anterior flank was prepped and draped in sterile fashion. 1% lidocaine was administered subcutaneously for local anesthesia. Initially, a 22 gauge needle was advanced and CT images confirmed good needle position. The 22 gauge needle was then exchanged for an 17 gauge introducer needle which was advanced. Repeat CT images confirmed good needle trajectory and tip position. The introducer needle was then advanced into the periphery of the inferior renal pole, and CT images were again obtained to confirm exact tip location. The inner stylet of the introducer needle was then removed and an 18 gauge coaxial needle was advanced thru the introducer needle and biopsy performed. A total of [4 ] passes were performed and the specimen collected was sent to Pathology for further evaluation. The needle was withdrawn. Hemostasis was achieved with manual compression and a sterile dressing was applied. Repeat CT images of the biopsy area was performed which demonstrated no gross bleeding or hematoma. The patient tolerated the procedure well without immediate complications. The patient was transported to the [floor/recovery area] in stable condition. CT/Biopsy/Inj or Needle Placement IMPRESSION: Successful CT guided percutaneous kidney biopsy. Electronically Signed: Richard Pérez, at 9:48 EDT , Service support ,
[2018-11-13] MEDS: Midazolam 2 MG/2 ML Syringe IV (09:00)
[2018-11-13] MEDS: fentaNYL 100 MCG/2 ML Ampul IV (09:00)
--- NOTE | 2018-11-13 09:16 | KI_PTH ---
PATIENT: ALYSIA HERNANDEZ LOC: CT U#:[id number] AGE/SX: 53/M ROOM: RE11/13/[address]: Dr. Kiah Maldonado MD : [id number] BED: DIS: 11/13/2018 SPEC #: [id number] RECD: 11/13/18 09:28 STATUS: MP JANN #: [id number] EMILIANO: 11/13/18 09:[address]: Kiah Maldonado DEPT: SURGICAL PATHOLOGY RECD BY: Palak Weston ENTERED: 11/13/18 12:36 SP TYPE: KIDNEY BX OTHR DR: Dr. John Collins MD Tissues: Kidney, NOS Procedures: Electron Microscopy (ACH) Sp [facility] Kidney ([facility]) Kidney Biopsy (ACH) HEADER OPERATION: CT-guided kidney biopsy (transplanted) PRE-OP DIAGNOSIS: Increasing creatinine TISSUE SUBMITTED: Kidney 18 gauge x4 cores MICROSCOPIC DIAGNOSIS Kidney, transplant kidney, renal biopsy: Unsatisfactory renal biopsy for definitive evaluation (see microscopic and comment). Suspicious (borderline) for acute T-cell mediated rejection. COMMENT The findings are those of unsatisfactory renal biopsy consisting of only three glomeruli and two arteries for histologic evaluation; however, portions of renal cortex as well as renal cortex with interstitial fibrosis are available for evaluation and lymphocytic infiltrate is seen in addition to viable tubules with active tubulitis. Cd4 staining (immunohistochemistry) is identified. Clinical correlation regarding donor-specific antibodies is advised. No active peritubular capillaritis is seen, however. The frequency and findings of inflammatory infiltrate best fit with suspicious (borderline) for acute T-cell mediated rejection. Specimen is otherwise inadequate for definitive evaluation. One glomerulus demonstrates global sclerosis while a second demonstrates open capillary loops without abnormality. One glomerulus demonstrates increase in mesangial matrix and obliteration of capillary loops in a segmental fashion without glomerulitis and without appreciable arteriolar hyalinosis. This is suspicious for an area of focal and segmental damage to glomerulus; however, absence of glomeruli without electron microscopy sections and marked paucity of glomeruli in entire specimen preclude definitive evaluation of glomeruli (for glomerular disease) in the background of history of transplant and, now, current nephrotic-range proteinuria. Of note, tubular resorption droplets are identified within PAS stain within tubular epithelial cell cytoplasm. If symptoms of proteinuria persist, rebiopsy, as clinically indicated/directed to include sampling to glomeruli for histologic, ultrastructural and immunofluorescent evaluation may be helpful. CLINICAL INFORMATION: 53-year-old man with followup for chronic kidney disease stage III. 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 Baseline creatinine 1.3 mg/dL. Current creatinine 1.6 mg/dL. Currently with proteinuria (3.5 g). Renal biopsy. MICROSCOPIC DESCRIPTION LIGHT MICROSCOPY: Unsatisfactory renal biopsy consisting of only three glomeruli or portions of glomeruli for histologic evaluation. One glomerulus demonstrates global sclerosis and overall shrunken nature/diameter while a second glomerulus demonstrates open capillary loops and normal a variant arterial. One glomerulus demonstrates segmental mesangial matrix increase with associated arteriolar hyalinosis. Two arteries are identified. The specimen consists of one-half renal cortex and one-half renal medulla. Approximately 25% of total cortical parenchyma demonstrates inflammation (ti1) while unscarred cortical parenchyma demonstrates inflammation in 20% (i1). Scarred cortical parenchyma (identified by trichrome stain) with inflammation approaches 40% (i-IFTA 2). No glomerulitis is seen (g0). Mild tubulitis is identified (t1) by PAS stain. No arteriolar hyalinosis is seen (ah0). No arteritis is identified (V0). No evidence of chronic glomerulopathy is seen (cg0). Moderate interstitial fibrosis (ci2) and mild tubular atrophy (ct1). No fuchsinophilic deposits are identified within 1 open glomerulus. Segmental increase in mesangial matrix is identified in one glomerulus with obliterated capillary loops (segmental) silver stain is negative for double contour basement membranes with an open glomerulus. No peritubular capillaritis is noted (ptc0). C4d staining (immunohistochemistry) is present in peritubular capillaries and vasa recta (C4d2). Alberts silver stain is negative for irregular basement membranes within glomerular capillary loops. PAS stain highlights tubular resorption droplets in tubular epithelial cell cytoplasm. No vasculitis is identified. Congo red stain is negative for congophilia and for birefringence and dichromatism by polarization microscopy. IMMUNOFLUORESCENCE: Not preformed. ELECTRON MICROSCOPY: Toluidine blue sections demonstrate no glomeruli or significant portions of renal cortex for evaluation and consist predominantly of renal medulla and tubulo-interstitium. Ultrastructural studies (Electron microscopy) are not performed due to inadequate glomerular, vascular and cortical renal tissue for evaluation. GROSS DESCRIPTION The specimen is sent entirely to [facility] for diagnosis. Received fresh, the specimen consists of multiple core biopsy fragments of burks to burks-red soft tissue which are in aggregate 0.8 x 0.1 x 0.1 cm. Two pieces are submitted in glutaraldehyde for electron microscopic studies. The remainder of the specimen is entirely submitted as A1.
== END | disposition home or self-care (01) ==
LOC: CT 07:40
PROVIDERS: Family Provider Family Medicine; PCP Family Medicine; Referring Provider Internal Medicine Nephrology; Visit Provider Internal Medicine Nephrology
DX: Z01.818 Encounter for other preprocedural examination (principal); Z94.0 Kidney transplant status
CPT/HCPCS: 50200; 77012; 88305; 88313; 88348; 99156; J7040; A4216

== ENCOUNTER 2018-11-27 15:41 | Emergency (ER) | payer MEDICARE, SELFPAY ==
[2018-11-13 08:16] VITALS: BMI 27.8
[2018-11-27 15:43] VITALS: BP 132/95; PULSE 96; RESP 20; TEMP 37.1; O2SAT 96; BMI 29.3
--- NOTE | 2018-11-27 15:57 | ED.DCSUM_ITS ---
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 He did not land on his knee on the ground. He did not injure anything else. He had a minor wound on his right knee, he cleansed it and dressed it, and was able to walk okay on it. Today he noticed bleeding going on his leg and that is the main reason he came because of the bleeding which is controlled now. Once he is up on his feet, he has no pain with walking. Last tetanus within the past several years, per pt. 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 (3) Hyperlipidemia Status: Chronic Past Medical History - Allergies and Home Meds Allergies/Adverse Reactions: Allergies No Known Allergies Allergy (Verified 11/13/18 08:23) Primary Care Physician: Jesus Collins MD [Primary Care Provider] - 1 Week if not improving Surgical History: - - renal x-plant Smoking Status: Never smoker Drugs: None Review of Systems Cardiovascular: Denies: Chest pain Respiratory: Denies: Dyspnea Gastrointestinal: Denies: Abdominal pain, Nausea, Vomiting Musculoskeletal: Reports: Extremity Pain Skin: Reports: Wounds Neurological: Denies: Headache, Weakness, Numbness Physical Exam Vital Signs/Narrative: Vital Signs Temp Pulse Resp BP Pulse Ox 11/27/18 15:43 98.7 F 96 20 H 132/95 H 96 Inital Vital Signs reviewed: Yes - Extremity Exam Right Knee: Abrasion - partial thickness, less than 1cm, flap still attached, anterior right knee over mid-patella., Limited ROM - only at extreme flexion, - - only bony tenderness is superior aspect of patella and at quad tendon just proximal to patella. no deformities. no clinical evidence of effusion. nontender fibular head and tibial tuberosity. General: Well nourished, Well developed Head: Normocephalic, Atraumatic Skin: Normal color, No rash, Trauma - see above. one superficial partial thickness abrasion/avulsion to right knee dorsum. no signs of infection. no active bleeding. no hematoma. no repairable lacerations. Neurological: Alert, Oriented x3, Cranial nerves II-XII grossly intact, Normal Strength, Normal Sensation, Normal Gait Psychological: Normal affect, Normal Mood Diagnostic/Tx/Re-eval Clinical Impression(s) from Imaging Studies Knee X-Ray 11/27/18 16:00 IMPRESSION: Anterior soft tissue swelling without underlying fracture or dislocation. Minimal degenerative squaring of the medial compartment. Mild degenerative change of the patellofemoral compartment. Electronically Signed: Tiffanie Germain MD at 16:35 EDT , Service support , - Medical Decision Making As above x-ray showed no acute abnormality. I do not think his wound needs sutured. There is no active bleeding. I enlisted the flap to discern the depth and I did not cause any bleeding although it was sore. We dressed it and cleansed it, advised him to keep it clean and keep checking it given his immunocompromised medications and risk for infection, but this is so superficial that oral antibiotics are not required at this time. Certainly if he sees any signs of infection I encouraged him to return, we put a Steri-Strip over it after cleansing it and an Trever wrap over that. He should follow-up for persistent pain. ED Disposition - Plan for ED Patient: Disposition: Home or Assisted Living Diagnosis: Abrasion, right knee, initial encounter, Contusion of right knee, initial encounter Instructions: Abrasion, CONTUSION, Lower Extremity Referrals: Jesus Collins MD [Primary Care Provider] - 1 Week if not improving
--- NOTE | 2018-11-27 16:00 | RAD_ITS ---
STUDY: X-RAY - RIGHT KNEE REASON FOR EXAM: Male, 53 years old. Pain of the anterior knee after falling injury. TECHNIQUE: 4 view(s) of the knee. COMPARISON: Prior right knee radiographs May 16, 2017 FINDINGS: Normal visualized distal femur. Normal visualized proximal tibia and fibula. Normal proximal tibiofibular articulation. There is no demonstrated fracture. Minimal degenerative squaring of the medial compartment. Normal lateral femorotibial compartment. There is mild degenerative arthrosis of the patellofemoral articulation. Anterior soft tissue swelling. RAD/Knee 4 or More Views IMPRESSION: Anterior soft tissue swelling without underlying fracture or dislocation. Minimal degenerative squaring of the medial compartment. Mild degenerative change of the patellofemoral compartment. Electronically Signed: Tiffanie Germain MD at 16:35 EDT , Service support ,
[2018-11-27] MEDS: Diphth,Pertuss(Acell),Tet Vac 0.5 ML Vial IM (16:56)
[2018-11-27 17:02] VITALS: BP 132/72; PULSE 86; RESP 14; O2SAT 97
== END 2018-11-27 17:11 | disposition home or self-care (01) ==
LOC: ED 16:20
PROVIDERS: Emergency Provider Emergency Medicine; Family Provider Family Medicine; PCP Family Medicine
DX: S80.01XA Contusion of right knee, initial encounter (principal); Z23 Encounter for immunization; I10 Essential (primary) hypertension; E78.5 Hyperlipidemia, unspecified; Z94.0 Kidney transplant status; W11.XXXA Fall on and from ladder, initial encounter; Y93.89 Activity, other specified; Y92.009 Unspecified place in unspecified non-institutional (private) residence as the place of occurrence of the external cause; Y99.8 Other external cause status
CPT/HCPCS: 73564; 90715; 99282

== ENCOUNTER 2018-11-30 10:20 | Emergency (ER) | payer MEDICARE, SELFPAY ==
[2018-11-30 10:22] VITALS: BP 150/101; PULSE 94; RESP 17; TEMP 36.8; O2SAT 97; BMI 29.2
--- NOTE | 2018-11-30 10:39 | VDLE_ITS ---
Reason For Study: Swelling RIGHT GSV is normal. CFV is compressible, spontaneous, phasic, competent and demonstrates normal augmentation. FV is compressible, spontaneous, phasic, competent and demonstrates normal augmentation. POP V is compressible, spontaneous, phasic, competent and demonstrates normal augmentation. T/P Trunk is compressible. PTV is compressible. RT PerV is compressible. Procedure Exam performed portable in ED. A preliminary report was called and/or faxed to Dr. Yuan. Interpretation Summary Deep veins of the right lower extremity are patent and compressible segmentally. There is no evidence of right lower extremity deep vein thrombosis. Valvular competence appears intact within the proximal deep venous system on the right . The right great saphenous vein appears patent and compressible segmentally. Ordering Physician: Abraham Yuan Referring Physician: John Collins Performed By: Riya Crowe, GEOVANI, RVT
--- NOTE | 2018-11-30 10:42 | ED.DCSUM_ITS ---
History of Present Illness Chief Complaint: Edema Informant: Patient Onset: Yesterday Context: Gradual Onset Timing: Continuous Current Severity: Moderate Maximum Severity: Moderate Narrative: Patient is a 53-year-old male with history of kidney transplant who is on immunosuppressive's who presents to the emergency department right lower extremity swelling. Patient had a mechanical fall. He was seen here. He does have history of prior knee surgery with bursal sac removal. He did have a laceration of the knee, but it was greater than 24 hours and cannot be primarily repaired. He is been doing wound dressings and states the wound is actually been improving. He is been wearing an Trever wrap. He states that over the past 12 hours, he is having some swelling in the posterior calf down into his foot. He describes a dull ache in the foot especially when he tries to bear weight. He denies any chest pain shortness of breath. Prior similar symptoms: Yes Recent Illness/Hospitalization: No Past Medical History - Allergies and Home Meds Allergies/Adverse Reactions: Allergies No Known Allergies Allergy (Verified 11/30/18 10:21) Primary Care Physician: Jesus Collins MD [Primary Care Provider] - Prior records reviewed: Yes Past Medical History: - Surgical History: - - renal x-plant Smoking Status: Former smoker Review of Systems General: Denies: Chills, Fever, Sweats Eyes: Denies: Visual changes - bilaterally, Diplopia ENT: Denies: Rhinorrhea, Sore throat Cardiovascular: Denies: Chest pain, Palpitations Respiratory: Denies: Dyspnea, Cough, Dyspnea on exertion Gastrointestinal: Denies: Abdominal pain, Nausea, Vomiting, Diarrhea, Melena, Hematochezia Genitourinary: Denies: Dysuria, Hematuria, Frequency Musculoskeletal: Reports: Arthralgias, Swelling, Extremity Pain. Denies: Back pain Skin: Denies: Rash, Wounds Neurological: Denies: Headache, Weakness, Numbness Physical Exam Vital Signs/Narrative: Vital Signs Temp Pulse Resp BP Pulse Ox 11/30/18 10:22 98.2 F 94 17 150/101 H 97 Inital Vital Signs reviewed: Yes General: Well nourished, Well developed, No Acute Distress Head: Normocephalic, Atraumatic Eyes: Perrl, EOMI ENT: Moist mucous membranes, No rhinorrhea Neck: Supple, Nontender Cardiovascular: Regular rate, Regular rhythm, No murmurs Respiratory: No distress, CTA bilaterally, Chest nontender Abdomen: Soft, Nontender, Nondistended, Normal bowel sounds Back: Nontender, Normal Inspection Extremities: Tenderness, Edema - Patient does have asymmetric edema of the right lower extremity. He has normal pulses. The incision is well approximated without erythema or drainage. There is no pain with smaller range of motion. Skin: Normal color, No rash Neurological: Alert, Oriented x3, Cranial nerves II-XII grossly intact, Normal Strength, Normal Sensation Psychological: Normal affect, Normal Mood Diagnostic/Tx/Re-eval - Medical Decision Making The patient presents with pain and swelling in his lower extremity. He has normal palpable pulses. His compartments are soft. He does have asymmetric edema. My suspicion is that this is likely secondary to his compressive Trever wrap. His incision is well approximated and does seem to be healing appropriately. I did obtain a venous ultrasound. There was no evidence of DVT. The patient is going to stop wearing his brace. He will continue elevation. He will be given a short course of analgesics. He is comfortable with this plan of care and will be discharged home. Impression 1. Right lower extremity swelling ED Disposition - Plan for ED Patient: Instructions: ED Peripheral Edema, Unilateral Prescriptions: Hydrocodone Bitart/Apap 5-325 [[place] 5MG-325MG] 1 tab PO Q6H PRN PRN 3 Days #10 tab PRN Reason: Pain Prescription Printed Referrals: Jesus Collins MD [Primary Care Provider] -
[2018-11-30] MEDS: HYDROcodone Bitartrate/Apap 5/325 Tablet PO (10:43)
== END 2018-11-30 11:57 | disposition home or self-care (01) ==
LOC: ED 10:47
PROVIDERS: Emergency Provider Emergency Medicine; Family Provider Family Medicine; PCP Family Medicine
DX: M79.89 Other specified soft tissue disorders (principal); Z94.0 Kidney transplant status; Z87.891 Personal history of nicotine dependence
CPT/HCPCS: 93971; 99283

== ENCOUNTER → 2018-12-06 | Outpatient (CLI) | payer MEDICARE, SELFPAY ==
[2018-11-30 10:22] VITALS: BMI 29.2
[2018-12-06 13:59] LABS: Hematocrit 40.1 % (40-54); Hemoglobin 13.1 g/dL (13.0-16.5); Mean Corp Hgb Conc 32.7 g/dL (32-36); Mean Corpuscular Hgb 28.5 pg (27.0-32.0); Mean Corpuscular Volume 87.2 fL (80-94); Platelet Count 263 K/mm3 (150-450); RBC Distribution Width CV 13.2 % (11.6-14.6); RBC Distribution Width SD 41.2 fl (35.1-43.9); White Blood Count 10.7 K/mm3 (4.4-11.0)
[2018-12-06 14:02] LABS: Color, Urine Yellow (Yellow); Glucose, Dipstick Normal (Normal); Ketone-Dipstick Negative (Negative); Leukocyte Esterase-Dipstick Negative /ul (Negative); Nitrite-Dipstick Negative (Negative); Occult Blood-Urine Negative /ul (Negative); Protein-Dipstick 100 mg/dl (Negative); Specific Gravity, Urine 1.015 (1.002-1.030); Urine Bilirubin Dipstick Negative (Negative); Urine Clarity Clear (Clear); Urine Urobilinogen Normal (Normal)
[2018-12-06 14:35] LABS: Albumin, Serum 3.7 g/dL (3.2-5.0); BUN 40 mg/dL (7-18); Calcium,Total 9.8 mg/dL (8.5-10.1); Chloride 106 mmol/L (98-107); Creatinine, Serum 1.82 mg/dL (0.70-1.30); EST Glomerular Filtration Rate 42 mL/min (>60); Est Glom Filt Rate - Afr Amer 50 mL/min (>60); Glucose 134 mg/dL (74-106); Phosphorus 1.9 mg/dL (2.5-4.9); Potassium 4.1 mmol/L (3.5-5.1); Sodium Level 135 mmol/L (136-145)
[2018-12-06 14:50] LABS: Microalbumin:Creatinine Ratio 2720.8 mg/g CRE (<30 mg/g CRE); Protein, Urine (Random) 174.9 mg/dL (<11.9); Protein:Creat Ratio 3090 mg/g CRE (0-200)
[2018-12-10 09:57] LABS: Tacrolimus (FK506) 14.6 ng/mL (2.0-20.0)
== END | disposition home or self-care (01) ==
LOC: MTLAB 12:42
PROVIDERS: Family Provider Family Medicine; PCP Family Medicine; Referring Provider Internal Medicine Nephrology; Visit Provider Internal Medicine Nephrology
DX: I12.9 Hypertensive chronic kidney disease with stage 1 through stage 4 chronic kidney disease, or unspecified chronic kidney disease (principal); N18.2 Chronic kidney disease, stage 2 (mild); Z94.0 Kidney transplant status; D89.9 Disorder involving the immune mechanism, unspecified; N25.81 Secondary hyperparathyroidism of renal origin
CPT/HCPCS: 80069; 80197; 81002; 82043; 82306; 82570; 83970; 84156; 85027

== ENCOUNTER → 2018-12-12 | Outpatient (CLI) | payer MEDICARE, SELFPAY ==
[2018-11-13 08:16] VITALS: BMI 27.8
[2018-11-30 10:22] VITALS: BMI 29.2
--- NOTE | 2018-12-12 11:08 | ECHOD_ITS ---
Reason For Study: MURMUR Procedure This was a 2D Doppler, Color Flow transthoracic echocardiogram. Exam performed in department. Left Ventricle Normal LV size. The estimated ejection fraction is 55 %. Normal diastology for age. No regional wall motion abnormalities noted. Right Ventricle Normal RV size. Normal systolic function. Atria Normal left atrium. Normal right atrium. No doppler evidence for ASD. Mitral Valve There is no mitral valve stenosis. No mitral valve insufficiency. Tricuspid Valve There is no tricuspid stenosis. Trivial tricuspid valve insufficiency. Pulmonary artery systolic pressure is 25-30 mmHg. Aortic Valve Trisinus/trileaflet aortic valve. Mild diffuse aortic valve thickening. Mild aortic stenosis. Mild (1+) aortic valve insufficiency. Pulmonic Valve There is no pulmonic valvular stenosis. Trivial pulmonic valve insufficiency. Great Vessels Normal aortic root. Pericardium/Pleural No pericardial effusion. MMode/2D Measurements & Calculations LVIDd: 4.6 cm IVSd: 1.1 cm LVOT diam: 2.0 cm LVIDs: 3.1 cm LVPWd: 1.1 cm LVOT area: 3.1 cm2 RVDd: 3.2 cm FS: 31.6 % Ao root diam: 3.6 cm LAV(MOD-bp): 49.2 ml EDV(MOD-sp4): 106.9 ml LAV(MOD-bp) Indexed: 27.0 ml/m2 ESV(MOD-sp4): 30.5 ml LAV(MOD-sp2): 49.2 ml EF(MOD-sp4): 71.4 % LAV(MOD-sp4): 49.1 ml EDV(MOD-sp2): 80.6 ml SV(MOD-sp4): 76.4 ml SV(MOD-sp2): 59.5 ml EF(MOD-sp2): 73.9 % Aortic Valve Planimetry: 2.2 cm2 LA A4 area: 17.3 cm2 LA dimension(2D): 4.0 cm RA A4 area: 13.1 cm2 Time Measurements MV dec time: 0.21 sec Doppler Measurements & Calculations MV E max ike: 127.8 cm/sec Lat Peak E' Ike: 10.7 cm/sec Med Peak E' Ike: 8.6 cm/sec MV A max ike: 88.1 cm/sec E/E' lat: 11.9 E/E' med: 14.8 MV E/A: 1.5 Ao V2 max: 205.4 cm/sec AI max ike: 405.1 cm/sec LV V1 max: 129.5 cm/sec Ao max P.9 mmHg AI max P.7 mmHg LV V1 max P.7 mmHg Ao V2 mean: 141.4 cm/sec AI dec slope: 305.7 cm/sec2 Ao mean P.9 mmHg AI P1/2t: 388.1 msec Ao V2 VTI: 34.9 cm ABRAHAM(V,D): 2.0 cm2 PA V2 max: 121.7 cm/sec PI end-d ike: 113.4 cm/sec TR max ike: 233.0 cm/sec TR max P.7 mmHg Interpretation Summary The estimated ejection fraction is 55 %. Mild aortic stenosis. Mild (1+) aortic valve insufficiency. Ordering Physician: Jesus Collins Referring Physician: Jesus Collins Performed By: Isabel Morrow RDCS, RVT
== END | disposition home or self-care (01) ==
LOC: CVS 10:45
PROVIDERS: Family Provider Family Medicine; PCP Family Medicine; Referring Provider Family Medicine; Visit Provider Family Medicine
DX: R01.1 Cardiac murmur, unspecified (principal)
CPT/HCPCS: 93306

== ENCOUNTER → 2018-12-14 | Outpatient (CLI) | payer MEDICARE, SELFPAY ==
[2018-11-30 10:22] VITALS: BMI 29.2
[2018-12-14 10:35] LABS: Anion Gap 8 (5-15); BUN 24 mg/dL (7-18); BUN/Creat Ratio 12.6 RATIO (10-20); Calcium,Total 9.2 mg/dL (8.5-10.1); Chloride 112 mmol/L (98-107); Creatinine, Serum 1.91 mg/dL (0.70-1.30); EST Glomerular Filtration Rate 39 mL/min (>60); Est Glom Filt Rate - Afr Amer 48 mL/min (>60); Glucose 128 mg/dL (74-106); Phosphorus 2.3 mg/dL (2.5-4.9); Potassium 3.8 mmol/L (3.5-5.1); Sodium Level 140 mmol/L (136-145)
[2018-12-14 11:20] LABS: Protein, Urine (Random) 686.6 mg/dL (<11.9); Protein:Creat Ratio 1826 mg/g CRE (0-200)
== END | disposition home or self-care (01) ==
LOC: LAB 09:24
PROVIDERS: Family Provider Family Medicine; PCP Family Medicine; Referring Provider Internal Medicine; Visit Provider Internal Medicine
DX: N18.2 Chronic kidney disease, stage 2 (mild) (principal); R80.9 Proteinuria, unspecified
CPT/HCPCS: 36415; 80048; 80197; 82570; 84100; 84156; 84165; 84166

== ENCOUNTER → 2019-03-07 07:58 | Outpatient (CLI) | payer MEDICARE, MEDICAID, SELFPAY ==
[2019-03-07 09:13] LABS: Prograf-FK506 TO CCF/UNIV MAILED SPECIMEN
[2019-03-07 10:19] LABS: Hematocrit 40.8 % (40-54); Mean Corp Hgb Conc 31.9 g/dL (32-36); Mean Corpuscular Hgb 28.5 pg (27.0-32.0); Mean Corpuscular Volume 89.5 fL (80-94); Mean Platelet Vol. 9.4 fl (6.2-12.0); Platelet Count 267 K/mm3 (150-450); RBC Distribution Width CV 12.9 % (11.6-14.6); RBC Distribution Width SD 42.2 fl (35.1-43.9); Red Blood Count 4.56 M/mm3 (4.6-6.2); White Blood Count 8.1 K/mm3 (4.4-11.0)
[2019-03-07 10:29] LABS: Albumin, Serum 3.6 g/dL (3.2-5.0); BUN 33 mg/dL (7-18); BUN/Creat Ratio 16.8 RATIO (10-20); Calcium,Total 9.2 mg/dL (8.5-10.1); Chloride 110 mmol/L (98-107); Creatinine, Serum 1.97 mg/dL (0.70-1.30); EST Glomerular Filtration Rate 38 mL/min (>60); Est Glom Filt Rate - Afr Amer 46 mL/min (>60); Glucose 78 mg/dL (74-106); Magnesium 1.8 mg/dL (1.6-2.6); Phosphorus 2.9 mg/dL (2.5-4.9); Potassium 4.2 mmol/L (3.5-5.1); Sodium Level 141 mmol/L (136-145)
== END ==
PROVIDERS: PCP Family Medicine
DX: Z94.0 Kidney transplant status (principal)
CPT/HCPCS: 36415; 80069; 83735; 85027

== ENCOUNTER → 2019-04-18 | Outpatient (CLI) | payer MEDICARE, MEDICAID, SELFPAY ==
[2019-04-18 12:37] LABS: Hematocrit 37.9 % (40-54); Hemoglobin 12.4 g/dL (13.0-16.5); Mean Corp Hgb Conc 32.7 g/dL (32-36); Mean Corpuscular Volume 88.6 fL (80-94); Mean Platelet Vol. 9.5 fl (6.2-12.0); Platelet Count 281 K/mm3 (150-450); RBC Distribution Width CV 13.4 % (11.6-14.6); RBC Distribution Width SD 42.9 fl (35.1-43.9); Red Blood Count 4.28 M/mm3 (4.6-6.2); White Blood Count 8.7 K/mm3 (4.4-11.0)
[2019-04-18 12:41] LABS: PTHIN 79.4 pg/mL (18.4-80.1)
[2019-04-18 12:43] LABS: Vitamin D,25 Hydroxy 59.4 ng/mL
[2019-04-18 13:05] LABS: Albumin, Serum 3.6 g/dL (3.2-5.0); BUN 34 mg/dL (7-18); BUN/Creat Ratio 15.2 RATIO (10-20); Calcium,Total 9.1 mg/dL (8.5-10.1); Chloride 110 mmol/L (98-107); Cholesterol 232 mg/dL (200); Creatinine, Serum 2.23 mg/dL (0.70-1.30); EST Glomerular Filtration Rate 33 mL/min (>60); Est Glom Filt Rate - Afr Amer 40 mL/min (>60); Glucose 92 mg/dL (74-106); High Density Lipoprotein 51 mg/dL; Magnesium 2.1 mg/dL (1.6-2.6); Phosphorus 2.4 mg/dL (2.5-4.9); Potassium 3.6 mmol/L (3.5-5.1); Sodium Level 140 mmol/L (136-145); Triglycerides 172 mg/dL; Uric Acid 9.2 mg/dL (3.5-7.2); Very Low Density Lipoprotein 34 mg/dL (5-40)
[2019-04-18 13:12] LABS: Hemoglobin A1c 5.8 % (4.2-6.3)
== END | disposition home or self-care (01) ==
PROVIDERS: PCP Family Medicine
DX: E55.9 Vitamin D deficiency, unspecified (principal); R73.9 Hyperglycemia, unspecified; E78.5 Hyperlipidemia, unspecified; Z94.0 Kidney transplant status
CPT/HCPCS: 36415; 80061; 80069; 80197; 82306; 83036; 83735; 83970; 84550; 85027

== ENCOUNTER 2019-05-15 15:55 | Outpatient (CLI) | payer MEDICARE, MEDICAID, SELFPAY ==
[2019-05-15 17:54] LABS: Albumin, Serum 3.4 g/dL (3.2-5.0); BUN 37 mg/dL (7-18); Calcium,Total 9.1 mg/dL (8.5-10.1); Chloride 106 mmol/L (98-107); Creatinine, Serum 2.06 mg/dL (0.70-1.30); EST Glomerular Filtration Rate 36 mL/min (>60); Est Glom Filt Rate - Afr Amer 44 mL/min (>60); Glucose 141 mg/dL (74-106); Phosphorus 3.4 mg/dL (2.5-4.9); Potassium 4.8 mmol/L (3.5-5.1); Sodium Level 137 mmol/L (136-145)
[2019-05-15 18:11] LABS: Hematocrit 38.3 % (40-54); Hemoglobin 12.3 g/dL (13.0-16.5); Mean Corp Hgb Conc 32.1 g/dL (32-36); Mean Corpuscular Hgb 28.9 pg (27.0-32.0); Mean Corpuscular Volume 89.9 fL (80-94); Mean Platelet Vol. 9.4 fl (6.2-12.0); Platelet Count 265 K/mm3 (150-450); RBC Distribution Width CV 13.5 % (11.6-14.6); Red Blood Count 4.26 M/mm3 (4.6-6.2); White Blood Count 11.3 K/mm3 (4.4-11.0)
[2019-05-18 08:15] LABS: Tacrolimus (FK506) 7.6 ng/mL (2.0-20.0)
== END 2019-06-12 16:00 | disposition home or self-care (01) ==
PROVIDERS: PCP Family Medicine
DX: E55.9 Vitamin D deficiency, unspecified (principal); R73.9 Hyperglycemia, unspecified; E78.5 Hyperlipidemia, unspecified; Z94.0 Kidney transplant status
CPT/HCPCS: 36415; 80069; 80197; 83735; 85027

== ENCOUNTER 2019-06-16 08:24 | Outpatient (RCR) | payer MEDICARE, MEDICAID, SELFPAY ==
[2019-06-16 10:00] LABS: Hematocrit 36.6 % (40-54); Hemoglobin 11.6 g/dL (13.0-16.5); Mean Corp Hgb Conc 31.7 g/dL (32-36); Mean Corpuscular Hgb 28.6 pg (27.0-32.0); Mean Corpuscular Volume 90.4 fL (80-94); Mean Platelet Vol. 9.2 fl (6.2-12.0); Platelet Count 238 K/mm3 (150-450); RBC Distribution Width CV 13.5 % (11.6-14.6); RBC Distribution Width SD 43.8 fl (35.1-43.9); Red Blood Count 4.05 M/mm3 (4.6-6.2); White Blood Count 8.7 K/mm3 (4.4-11.0)
[2019-06-16 10:15] LABS: Albumin, Serum 3.6 g/dL (3.2-5.0); BUN 31 mg/dL (7-18); BUN/Creat Ratio 14.1 RATIO (10-20); Calcium,Total 9.1 mg/dL (8.5-10.1); Chloride 114 mmol/L (98-107); Cholesterol 141 mg/dL (200); EST Glomerular Filtration Rate 33 mL/min (>60); Est Glom Filt Rate - Afr Amer 40 mL/min (>60); Glucose 91 mg/dL (74-106); High Density Lipoprotein 42 mg/dL; Phosphorus 3.6 mg/dL (2.5-4.9); Potassium 4.2 mmol/L (3.5-5.1); Sodium Level 141 mmol/L (136-145); Triglycerides 156 mg/dL; Uric Acid 8.1 mg/dL (3.5-7.2); Very Low Density Lipoprotein 31 mg/dL (5-40)
[2019-06-16 10:18] LABS: PTHIN 86.7 pg/mL (18.4-80.1)
[2019-06-16 10:20] LABS: Vitamin D,25 Hydroxy 58.8 ng/mL
[2019-06-16 10:23] LABS: Hemoglobin A1c 5.9 % (4.2-6.3)
[2019-06-18 16:17] LABS: Tacrolimus (FK506) 4.8 ng/mL (2.0-20.0)
== END 2019-06-16 18:00 | disposition home or self-care (01) ==
LOC: MTLAB 08:24
PROVIDERS: PCP Family Medicine
DX: Z94.0 Kidney transplant status (principal); E55.9 Vitamin D deficiency, unspecified; R73.9 Hyperglycemia, unspecified; E78.5 Hyperlipidemia, unspecified
CPT/HCPCS: 36415; 80061; 80069; 80197; 82306; 83036; 83735; 83970; 84550; 85027

== ENCOUNTER 2019-08-19 09:57 | Outpatient (RCR) | payer MEDICARE, MEDICAID, SELFPAY ==
[2019-08-19 12:46] LABS: Hemoglobin 12.2 g/dL (13.0-16.5); Mean Corp Hgb Conc 31.3 g/dL (32-36); Mean Corpuscular Hgb 29.2 pg (27.0-32.0); Mean Corpuscular Volume 93.3 fL (80-94); Mean Platelet Vol. 9.5 fl (6.2-12.0); Platelet Count 239 K/mm3 (150-450); RBC Distribution Width CV 13.6 % (11.6-14.6); RBC Distribution Width SD 45.3 fl (35.1-43.9); Red Blood Count 4.18 M/mm3 (4.6-6.2); White Blood Count 8.9 K/mm3 (4.4-11.0)
[2019-08-19 12:57] LABS: Albumin, Serum 3.5 g/dL (3.2-5.0); BUN 32 mg/dL (7-18); BUN/Creat Ratio 16.2 RATIO (10-20); Calcium,Total 8.7 mg/dL (8.5-10.1); Chloride 110 mmol/L (98-107); Creatinine, Serum 1.97 mg/dL (0.70-1.30); EST Glomerular Filtration Rate 38 mL/min (>60); Est Glom Filt Rate - Afr Amer 46 mL/min (>60); Glucose 114 mg/dL (74-106); Magnesium 1.8 mg/dL (1.6-2.6); Phosphorus 2.4 mg/dL (2.5-4.9); Potassium 3.9 mmol/L (3.5-5.1); Sodium Level 141 mmol/L (136-145)
[2019-08-22 21:18] LABS: Tacrolimus (FK506) 4.4 ng/mL (2.0-20.0)
== END 2019-08-19 18:00 | disposition home or self-care (01) ==
LOC: MTLAB 09:57
PROVIDERS: PCP Family Medicine
DX: Z94.0 Kidney transplant status (principal); E55.9 Vitamin D deficiency, unspecified; R73.9 Hyperglycemia, unspecified; E78.5 Hyperlipidemia, unspecified
CPT/HCPCS: 36415; 80069; 80197; 83735; 85027

== ENCOUNTER → 2019-10-17 | Outpatient (CLI) | payer MEDICARE, MEDICAID, SELFPAY ==
[2019-10-17 09:17] LABS: Hematocrit 35.4 % (40-54); Hemoglobin 11.2 g/dL (13.0-16.5); Mean Corp Hgb Conc 31.6 g/dL (32-36); Mean Corpuscular Hgb 28.7 pg (27.0-32.0); Mean Corpuscular Volume 90.8 fL (80-94); Mean Platelet Vol. 8.9 fl (6.2-12.0); Platelet Count 236 K/mm3 (150-450); RBC Distribution Width CV 13.8 % (11.6-14.6); RBC Distribution Width SD 44.7 fl (35.1-43.9)
[2019-10-17 09:52] LABS: Hemoglobin A1c 5.6 % (3.8-5.6); PTHIN 104.1 pg/mL (18.4-80.1)
[2019-10-17 09:55] LABS: AST(SGOT) 24 U/L (15-37); Alanine Aminotransfer ALT/SGPT 41 U/L (16-61); Albumin, Serum 3.3 g/dL (3.2-5.0); Alkaline Phosphatase 62 U/L (45-117); Anion Gap 9 (5-15); BUN 28 mg/dL (7-18); BUN/Creat Ratio 14.4 RATIO (10-20); CPK Total, Creatine Kinase 182 U/L (39-308); Calcium,Total 8.4 mg/dL (8.5-10.1); Chloride 110 mmol/L (98-107); Cholesterol 153 mg/dL (200); Creatinine, Serum 1.94 mg/dL (0.70-1.30); EST Glomerular Filtration Rate 39 mL/min (>60); Est Glom Filt Rate - Afr Amer 47 mL/min (>60); Globulin 3.1 g/dL (2.2-4.2); Glucose 90 mg/dL (74-106); High Density Lipoprotein 46 mg/dL; Phosphorus 2.1 mg/dL (2.5-4.9); Protein, Total 6.4 g/dL (6.4-8.2); Sodium Level 140 mmol/L (136-145); Triglycerides 137 mg/dL; Very Low Density Lipoprotein 27 mg/dL (5-40)
[2019-10-17 09:57] LABS: Vitamin D,25 Hydroxy 54.7 ng/mL
[2019-10-17 10:34] LABS: Microalbumin:Creatinine Ratio 371.2 mg/g CRE (<30 mg/g CRE); Protein, Urine (Random) 62.8 mg/dL (<11.9)
[2019-10-21 14:01] LABS: Tacrolimus (FK506) 4.6 ng/mL (2.0-20.0)
== END | disposition home or self-care (01) ==
LOC: LAB 08:42
PROVIDERS: PCP Family Medicine
DX: E55.9 Vitamin D deficiency, unspecified (principal); R73.9 Hyperglycemia, unspecified; E78.5 Hyperlipidemia, unspecified; M60.9 Myositis, unspecified; Z94.0 Kidney transplant status
CPT/HCPCS: 36415; 80048; 80061; 80076; 80197; 82043; 82306; 82550; 82570; 83036; 83970; 84100; 84156; 85027

== ENCOUNTER → 2019-12-03 | Outpatient (CLI) | payer MEDICARE, MEDICAID, SELFPAY ==
--- NOTE | 2019-12-03 09:11 | RAD_ITS ---
STUDY: X-RAY - PELVIS AND LEFT HIP REASON FOR EXAM: Male, 54 years old. CHRONIC HIP PAIN, NO KNOWN INJURY TECHNIQUE: 3 views of the pelvis and hip. COMPARISON: None. FINDINGS: There is a non-specific bowel gas pattern. Normal visualized soft tissue structures. Normal bilateral iliac wings, sacroiliac joints and visualized sacrum. Normal bilateral superior and inferior pubic rami. Normal pubic symphysis. Normal bilateral ischial tuberosities. There are osteoarthritic changes of the femoral head with marginal osteophyte formation. There is osteoarthritic spur formation of the acetabular rim. There is moderate articular joint space narrowing of the hip. RAD/HIP, UNI W/ Pelvis 2-3 Views IMPRESSION: Moderate arthrosis with large erosions of the femoral head. Avascular necrosis cannot be excluded. Electronically Signed: Bert Kuhn MD at 17:12 EDT Tel , Service support ,
--- NOTE | 2019-12-03 09:12 | RAD_ITS ---
History: 54-year-old male with left hip pain and uneven gait. Examination and technique: Standing frontal images of both lower extremities. FINDINGS: The film marked of the ruler located at the mid calcaneus. Measured at the top of the femoral head, the right lower extremity measures 85.5 cm. The left lower extremity measures 85.0 cm. Large well-defined lucent defect in the left femoral head suspicious for sequela of avascular necrosis. Mild degenerative changes in the medial compartment of both knees. Otherwise normal bony mineralization with no evidence of acute fracture. No acute soft tissue abnormality. Calcific atherosclerosis. RAD/Bone Length IMPRESSION: Right lower extremity measures slightly longer than the left. Large well-defined lucent defect in the left femoral head suspicious for sequela of avascular necrosis. Electronically Signed: Dalton Weiner, at 23:32 EDT Tel , Service support ,
== END | disposition home or self-care (01) ==
LOC: MTRAD 09:10
PROVIDERS: PCP Family Medicine; Referring Provider Family Medicine; Visit Provider Family Medicine
DX: M25.552 Pain in left hip (principal); M54.9 Dorsalgia, unspecified
CPT/HCPCS: 73502; 77073

== ENCOUNTER 2019-12-27 08:55 | Outpatient (RCR) | payer MEDICARE, MEDICAID, SELFPAY ==
[2019-12-18 09:32] LABS: Hematocrit 38.1 % (40-54); Mean Corp Hgb Conc 31.5 g/dL (32-36); Mean Corpuscular Hgb 29.1 pg (27.0-32.0); Mean Corpuscular Volume 92.3 fL (80-94); Platelet Count 223 K/mm3 (150-450); RBC Distribution Width SD 43.8 fl (35.1-43.9); Red Blood Count 4.13 M/mm3 (4.6-6.2); White Blood Count 7.9 K/mm3 (4.4-11.0)
[2019-12-18 10:05] LABS: Albumin, Serum 3.6 g/dL (3.2-5.0); BUN 33 mg/dL (7-18); BUN/Creat Ratio 13.9 RATIO (10-20); Calcium,Total 9.3 mg/dL (8.5-10.1); Chloride 109 mmol/L (98-107); Creatinine, Serum 2.38 mg/dL (0.70-1.30); EST Glomerular Filtration Rate 30 mL/min (>60); Est Glom Filt Rate - Afr Amer 37 mL/min (>60); Glucose 89 mg/dL (74-106); Phosphorus 3.1 mg/dL (2.5-4.9); Potassium 4.6 mmol/L (3.5-5.1); Sodium Level 139 mmol/L (136-145)
[2019-12-20 12:43] LABS: Tacrolimus (FK506) 5.8 ng/mL (2.0-20.0)
[2019-12-27 09:45] LABS: Color, Urine Straw (Yellow); Glucose, Dipstick Normal (Normal); Ketone-Dipstick Negative (Negative); Leukocyte Esterase-Dipstick 25 /ul (Negative); Nitrite-Dipstick Negative (Negative); Occult Blood-Urine Negative /ul (Negative); Protein-Dipstick 100 mg/dl (Negative); Urine Bilirubin Dipstick Negative (Negative); Urine Clarity Clear (Clear); Urine Urobilinogen Normal (Normal)
[2019-12-27 09:48] LABS: Hematocrit 38.3 % (40-54); Mean Corp Hgb Conc 31.3 g/dL (32-36); Mean Corpuscular Hgb 29.3 pg (27.0-32.0); Mean Corpuscular Volume 93.4 fL (80-94); Mean Platelet Vol. 9.1 fl (6.2-12.0); Platelet Count 243 K/mm3 (150-450); RBC Distribution Width CV 12.6 % (11.6-14.6); White Blood Count 7.9 K/mm3 (4.4-11.0)
[2019-12-27 09:55] LABS: Protein, Urine (Random) 100.8 mg/dL (<11.9); Protein:Creat Ratio 522 mg/g CRE (0-200)
[2019-12-27 10:39] LABS: Albumin, Serum 3.5 g/dL (3.2-5.0); BUN 30 mg/dL (7-18); BUN/Creat Ratio 14.1 RATIO (10-20); Calcium,Total 8.9 mg/dL (8.5-10.1); Chloride 113 mmol/L (98-107); Creatinine, Serum 2.13 mg/dL (0.70-1.30); EST Glomerular Filtration Rate 35 mL/min (>60); Est Glom Filt Rate - Afr Amer 42 mL/min (>60); Glucose 101 mg/dL (74-106); Phosphorus 3.1 mg/dL (2.5-4.9); Potassium 4.3 mmol/L (3.5-5.1); Sodium Level 142 mmol/L (136-145)
[2019-12-30 10:39] LABS: Tacrolimus (FK506) 7.7 ng/mL (2.0-20.0)
== END 2019-12-27 18:00 | disposition home or self-care (01) ==
LOC: LAB 08:55
PROVIDERS: PCP Family Medicine
DX: Z94.0 Kidney transplant status (principal)
CPT/HCPCS: 36415; 80069; 80197; 81002; 82570; 83735; 84156; 85027

== ENCOUNTER 2019-12-31 14:30 | Outpatient (RCR) | payer MEDICARE, MEDICAID, SELFPAY ==
[2019-12-22 08:02] VITALS: BMI 30.2
--- NOTE | 2019-12-25 12:07 | HP.PTEVAL_ITS ---
Patient's Visit Information ALYSIA HERNANDEZ is a 54 year old M referred to Physical Therapy by Dr. Yosvany Padron DO with a diagnosis of LUMBAR RADICULITIS, DEGENERATIVE SPONDYLOSIS AND L HIP AVASCULAR NECROSIS.. Date of Evaluation: 12/25/19 Physical Therapist: Heather Skinner, PT, Cert MDT - Visit Plan Frequency: 2-3x /Week Duration: 4-6 Weeks Plan: *PRECAUTION - AVN L HIP*. *GO SLOW*. AQUATIC THERAPY FOR PAIN RELEIF, POSTURE CORRECTION/STRENGTHENING, INSTRUCTION IN APPROPRIATE BODY MECHANICS AND ACTIVITY MODIFICATIONS. DLS STARTING WITH A NEUTRAL SPINE PROGRESSING ROM TOLERATED. ABDIEL LE ROM, STRETCHING AND STRENGTHENING. HEP INSTRUCTION. - Subjective Disability: YES - SINCE 2004 FOR KIDNEY TRANSPLANT. Present symptoms: LEFT LOW BACK AND HIP PAIN. LEFT GROIN. PULLING, SHARP PAIN AND TINGLING IN LEFT LEG TO CALF. DENIES FOOT OR TOE SYMPTOMS. SYMPTOMS BELOW THE KNEE ARE INTERMITTENT. Present since: COUPLE MONTHS AGO. Pain Scale: Worst -8/10 Least - 2/10. Currently: 08/21. UNCHANGING. 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 Symptoms at onset: LOW BACK. Worse: WALKING, STEPS, CERTAIN CHAIRS, LEFT SDLY, STANDING. Better: RECLINER. Disturbed sleep: YES. Previous history/Previous treatment: LONG HISTORY WITH CHIROPRACTOR. NO BACK SURGERY. NO INJECTIONS. NO HIP SURGERY. NO HIP INJECTIONS. This episode: TRIED CHIROPRACTOR A COUPLE MONTHS AGO AND IT DIDN'T HELP. Coughing/sneezing/straining: POSITIVE. Gait: I'M CROOKED. I CAN'T WALK STRAIGHT ANYMORE AND I'M NOT SURE IF IT IS BECAUSE OF MY BACK OR MY HIP'. IT HURTS TO WALK. NO ASSISTIVE DEVICES. Difficulty initiating urinatin: NO. Accidents: NO. Unexplained weight loss: NO. Imaging: STUDY: X-RAY - PELVIS AND LEFT HIP. REASON FOR EXAM: Male, 54 years old. CHRONIC HIP PAIN, NO KNOWN INJURY. TECHNIQUE: 3 views of the pelvis and hip. COMPARISON: None. . FINDINGS: There is a non-specific bowel gas pattern. Normal visualized soft tissue. structures. Normal bilateral iliac wings, sacroiliac joints and visualized sacrum. Normal bilateral superior and inferior pubic rami. Normal pubic symphysis. Normal bilateral ischial tuberosities. There are osteoarthritic changes of the femoral head with marginal. osteophyte formation. There is osteoarthritic spur formation of the. acetabular rim. There is moderate articular joint space narrowing of the. hip. . 0029 RAD/HIP, UNI W/ Pelvis 2-3 Views. IMPRESSION: Moderate arthrosis with large erosions of the femoral head. Avascular. necrosis cannot be excluded. . Electronically Signed: Bert Kuhn MD. at 17:12 EDT. History: 54-year-old male with left hip pain and uneven gait. Examination and technique: Standing frontal images of both lower. extremities. FINDINGS: The film marked of the ruler located at the mid calcaneus. Measured at the. top of the femoral head, the right lower extremity measures 85.5 cm. The. left lower extremity measures 85.0 cm. Large well-defined lucent defect in the left femoral head suspicious for. sequela of avascular necrosis. Mild degenerative changes in the medial. compartment of both knees. Otherwise normal bony mineralization with no. evidence of acute fracture. No acute soft tissue abnormality. Calcific. atherosclerosis. RAD/Bone Length. IMPRESSION: Right lower extremity measures slightly longer than the left. . Large well-defined lucent defect in the left femoral head suspicious for. sequela of avascular necrosis. STUDY: X-RAY - LUMBAR SPINE. REASON FOR EXAM: Male, 54 years old. Pain in left hip and lower back for. about 3 months now. No known injury, however patient states recently he. did have a pop in his left hip a couple weeks ago. TECHNIQUE: 3 view(s) of the lumbar spine were obtained. COMPARISON: None. . FINDINGS: Normal lumbar lordosis. There is a levoscoliosis of the lumbar spine. There is a normal alignment of the vertebrae. There is multilevel endplate spondylosis of the lumbar vertebrae. There is. multi-level degenerative disc disease with multi-level disc space. narrowing. Marked degree of joint space narrowing with subchondral cyst. formation of the left hip joint. The soft tissue structures are unremarkable. . RAD/Lumbar Spine 2 or 3 Views. IMPRESSION: Degenerative changes of the spine, as detailed above. PMH: RIGHT KNEE SURGERY, ABDIEL SHOULDER SURGERIES. KIDNEY TRANSPLANT 2005 (ON MULTIPLE MEDICATIONS). OTHER: ROLLED OVER IN BED ABOUT A WEEK AGO AND CHRISTOPHE AND FELT A POP IN HIS HIP THAT REALLY HURT AT THE TIME BUT HAS BEEN BETTER EVER SINCE THEN. LEG LENGTH DIFFERNCE DX'D ON X-RAY RECENTLY AND PATIENT IS NOW USING A LEFT HEEL LIFT. PATIENT REPORTS IT SEEMED TO HELP IN THE BEGINNING BUT NOT SURE NOW. PLAN FROM RECENT RADHA'T WITH DR. PADRON: Obtained X-rays of patient's left hip and lumbar spine. Personally reviewed x- rays. There is no obvious fracture, dislocation, or lucency noted. Patient educated that he has what looks like AVN of the left hip. 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 Educated that he has pain coming from the AVN of the left hip along with some lumbar radicular pain from his DDD of the lumbar spine. Educated that the pain radiating past the knee is coming from his back. Educated that the treatment options are do nothing or PT or steroid injection of the hip joint or TATY. Since he is on immunosuppressants and prednisone it He would be considered at higher risk for surgery and infection. He does not wish to proceed with TATY at this t héctor. Treatment options for the back are do nothing or PT or pain management for injections. Patient wishes to proceed with PT for the hip and back and we will also send a referral for him to see pain management. Follow up as needed or sooner if pain, swelling, numbness or associated symptoms, or concerns develop. All questions answered. Patient in agreement of plan. OTHER: PATIENT REPORTS HE DOESN'T WANT TO HAVE HIP REPLACEMENT IF AT ALL POSSIBLE. - Objective Sitting/Standing Posture: POOR. LARGE ABDOMEN. FORWARD HEAD. ROUNDED SHOULDERS. LEFT LATERAL LUMBAR SHIFT. Active Correction of posture: INCREASES PAIN IN THE FRONT OF THE LEFT HIP. Other Observations: DIFFICULTY TRANSITIONING FROM SIT TO STAND AND INITIATING GAIT AFTER SITTING. Motor deficit: RIGHT LE: HIP 4/5, KNEE 5/5, ANKLE 5/5. LEFT LE: HIP ~3-/5 (TESTED CAREFULLY), KNEE EXT 3+/5, KNEE FLEX 4-/5, ANKLE 5/5. Sensory deficit: ABDIEL LE LIGHT TOUCH SENSATION APPEARS INTACT AND SYMMETRICAL. ROM deficit: DECREASED LEFT HIP ROM ALL PLANES COMPARED TO RIGHT. LEFT HIP FLEX APPROX 100 DEG. LEFT HIP IS EXTERNALLY ROTATED WITH VERY RESTRICTED IR. Reflexes: NT. Dural Signs: POSITIVE LLE. Lumbar mvmt loss: flex - MODERATE. ext - HAMILTON. R SG - MOD. L SG - MOD. C/O ANTERIOR L HIP PAIN WITH FLEXION AND INTERNAL ROTATION TESTING. Core strength: POOR. 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 - Goals Goal 1:: DECREASE C/O BACK AND LE SX'S Goal Time Frame: 4-6 Weeks Goal 2:: IMPROVE PERSONAL CARE, LIFTING, WALKING, SITTING, STANDING, SOCIAL LIFE, TRAVEL AND HOMEMAKING FUNCTION Goal Time Frame: 4-6 Weeks Goal 3:: INSTRUCT IN PROPHYLAXIS Goal Time Frame: 4-6 Weeks - Anticipated Interventions Patient/Client Instruction: Educate patient on: Condition, Plan of Care, Risk Factors, Benefits of Fitness Program For the Purpose of:: To improve self management Therapeutic Exercise to Include: Strength training, Body mechanics, Postural training, Gait and locomotor training, Neuromotor development, In an aquatic se tting, Dynamic Lumbar Stabilization For the Purpose of:: To decrease pain, To increase ROM, To improve muscle performance and motor function, To increase tolerance to activit y/condition/position, To improve ability of physical actions for home/community/work/leisure, To improve gait and locomotor functions Thank you for the opportunity to evaluate your patient. For Medicare and Medicare HMO plans, please review the plan of care and approve it. It will need to be FAXED BACK to us at [phone] for Medicare purposes. For Medicare only, by signing this I certify the plan of care. Please let me know if there are questions or concerns regarding this plan of care. Physician Signature: Dat e:
--- NOTE | 2020-02-18 10:54 | HP.PT.NRP ---
ALYSIA HERNANDEZ was seen in my office for initial evaluation on 12/25/19. The following Plan of Care was established for this patient: Initial Frequency: 2-3x /Week Initial Duration: 4-6 Weeks Patient/Client Instruction: Educate patient on: Condition, Plan of Care, Risk Factors, Benefits of Fitness Program For the Purpose of:: To improve self management Therapeutic Exercise to Include: Strength training, Body mechanics, Postural training, Gait and locomotor training, Neuromotor development, In an aquatic setting, Dynamic Lumbar Stabilization For the Purpose of:: To decrease pain, To increase ROM, To improve muscle performance and motor function, To increase tolerance to activity/condition/position, To improve ability of physical actions for home/community/work/leisure, To improve gait and locomotor functions This patient was last seen in our office 12/31/19. Pertinent comments regarding their Physical therapy will appear below: This patient has not returned to Physical Therapy and is appropriate to return to MD for further follow-up as needed. At this point I will be discontinuing this patient from physical therapy. I would be happy to see this patient again in the future if found appropriate by the physician. Thank you! Heather Skinner, PT, Cert MDT
== END 2019-12-31 19:00 | disposition home or self-care (01) ==
LOC: PT 14:30
PROVIDERS: PCP Family Medicine; Referring Provider Orthopaedic Surgery; Visit Provider Orthopaedic Surgery
DX: M54.16 Radiculopathy, lumbar region (principal); M47.819 Spondylosis without myelopathy or radiculopathy, site unspecified
CPT/HCPCS: 97113; 97162

== ENCOUNTER 2020-01-09 18:40 | Emergency (ER) | payer MEDICARE, SELFPAY ==
[2019-12-22 08:02] VITALS: BMI 30.2
[2020-01-09] VITALS (7 sets, daily range): BP systolic 130–138; BP diastolic 72–87; PULSE 98–104; RESP 15–20; TEMP 36.7; O2SAT 93–96; BMI 30.3
--- NOTE | 2020-01-09 18:56 | EKG12_ITS ---
Test Reason : CP Blood Pressure : / mmHG Vent. Rate : 099 BPM Atrial Rate : 099 BPM P-R Int : 142 ms QRS Dur : 120 ms QT Int : 352 ms P-R-T Axes : 053 009 040 degrees QTc Int : 451 ms Normal sinus rhythm Right bundle branch block Abnormal ECG Confirmed by RA DAVILA, BLANCHE ([id number]), rewrite editor NEAL WOMACK ([id number]) on 01/13/2020 9:11:04 AM Referred By: DAKOTA Confirmed By:BLANCHE KNAPP MD
[2020-01-09 19:32] LABS: Absolute Lymphocyte Count 0.74 X10^3/uL (0.83-4.51); Absolute Neutrophil Count 7.1 X10^3/uL (2.0-7.7); Basophil# 0.02 X10^3/uL; Basophil% 0.2 % (0-1); Eosinophil# 0.01 X10^3/uL; Eosinophils% 0.1 % (0-5); Hematocrit 39.3 % (40-54); Hemoglobin 12.5 g/dL (13.0-16.5); Lymphocyte # 0.74 X10^3/ul (4.0); Lymphocyte % 8.2 % (19-41); Mean Corp Hgb Conc 31.8 g/dL (32-36); Mean Corpuscular Hgb 29.1 pg (27.0-32.0); Mean Corpuscular Volume 91.6 fL (80-94); Mean Platelet Vol. 9.5 fl (6.2-12.0); Monocyte# 1.03 X10^3/uL; Monocyte% 11.5 % (0-10); NRBC Flagged by Analyzer 0 % (0-5); Neutrophil % 79.2 % (47-70); Platelet Count 192 K/mm3 (150-450); RBC Distribution Width CV 12.7 % (11.6-14.6); RBC Distribution Width SD 42.1 fl (35.1-43.9); Red Blood Count 4.29 M/mm3 (4.6-6.2)
--- NOTE | 2020-01-09 19:33 | RAD_ITS ---
STUDY: X-RAY CHEST REASON FOR EXAM: Male, 54 years old. PT POSITIVE FOR COVID, C/O INCREASING SOB AND CHEST PAIN. TECHNIQUE: AP portable COMPARISON: None. FINDINGS: Less than optimal inspiratory effort is seen. There is interstitial thickening with patchy groundglass opacities in the lower lobes and left upper lobe which may be consistent with atypical viral pneumonia.. There is no demonstrated pleural abnormality. Heart appears mildly enlarged although exaggerated by radiographic technique. Normal mediastinum and yessi. Normal visualized pulmonary arteries. Normal visualized aortic arch and descending thoracic aorta. Dorsal spine demonstrates scoliosis and degenerative change. There are postsurgical changes of the shoulders. Normal visualized ribs, and clavicles.. There is no demonstrated abnormality of the visualized soft tissue structures of the upper abdomen. RAD/Chest 1 View (Portable) IMPRESSION: Findings suspicious for Covid 19 pneumonia more pronounced in the left lung Electronically Signed: Alvin Hoang MD at 19:57 EST , Service support ,
[2020-01-09 19:51] LABS: Anion Gap 8 (5-15); BUN 36 mg/dL (7-18); BUN/Creat Ratio 14.3 RATIO (10-20); Calcium,Total 9.4 mg/dL (8.5-10.1); Chloride 110 mmol/L (98-107); Creatinine, Serum 2.52 mg/dL (0.70-1.30); D-Dimer Quantitative (DVT/PE) 0.51 FEU/ug/m (0.27-0.49); EST Glomerular Filtration Rate 28 mL/min (>60); Est Glom Filt Rate - Afr Amer 34 mL/min (>60); Estimated Creatinine Clearance 29.15 ml/min; Glucose 171 mg/dL (74-106); Lactic Acid 1.4 mmol/L (0.4-1.9); Potassium 5.3 mmol/L (3.5-5.1); Sodium Level 138 mmol/L (136-145)
[2020-01-09 21:00] LABS: Mucous, Urine 0 SEEN /hpf (<or=2+); Red Blood Cells-Urine 0 SEEN /hpf (0-5); Squamous Epithelial Cells - UA 0 SEEN /hpf (0-5); White Blood Cells 0 SEEN /hpf (0-5)
[2020-01-09 21:01] LABS: Color, Urine Yellow (Yellow); Glucose, Dipstick Normal (Normal); Ketone-Dipstick Negative (Negative); Leukocyte Esterase-Dipstick Negative /ul (Negative); Nitrite-Dipstick Negative (Negative); Occult Blood-Urine Negative /ul (Negative); Protein-Dipstick 100 mg/dl (Negative); Urine Bilirubin Dipstick Negative (Negative); Urine Clarity Clear (Clear); Urine Urobilinogen Normal (Normal)
[2020-01-09 21:08] LABS: Bacteria RARE /hpf (None Seen)
--- NOTE | 2020-01-09 21:26 | ED.VISSUMM ---
- ER Visit Summary Date of Service: 01/09/20 Chief Complaint: [Shortness of breath] History of Present Illness: The patient is a 54 M [presents to the emergency department with complaint of shortness of breath and cough and fatigue. Patient states that he took a COVID-19 test 1 week ago and his results were given to him today and he was positive. Patient states that initially he was exposed to a cousin who then tested positive for Covid. Patient states that over last couple of days he has had some increasing shortness of breath especially with exertion. He has had no fever. Has had a slight cough that is mostly dry and at times bringing up some green phlegm. Patient has history of a renal transplant in 2013. He has history of hypertension high cholesterol. Patient currently on CellCept as well as tacrolimus and prednisone. Patient complains of some intermittent sharp pains in his lungs with breathing.] Physical Examination: [HEENT-PERRLA, EOMI. Cranial nerves II through XII grossly intact. TMs clear. Mucous membranes moist. No adenopathy. Cardiovascular-regular rate and rhythm without murmur or ectopy Lungs-good aeration bilaterally. Occasional faint expiratory wheeze noted. No tachypnea. No accessory muscle use or retractions. Abdomen-normoactive bowel sounds, soft, nontender, no rebound or rigidity, no peritoneal signs. Extremities-intact ?4, normal range of motion, normal pulses, atraumatic] Test Results: [EKG obtained arrival shows sinus rhythm with a ventricular rate of 99 bpm with a right bundle branch block. CBC with differential showed a white count 9.0, hemoglobin 12.5, hematocrit 39, plates 192. Chemistry showed a sodium 138, potassium 5.3, chloride 110, CO2 20, BUN 36, creatinine 2.52 and glucose was 171. Troponin was less than 0.15. D-dimer was 0.51 and considered normal when corrected for age. Lactate was 1.4. Chest x-ray showed bilateral faint infiltrates consistent with Covid pneumonia.] Emergency Department Course and Treatment: [Patient was given albuterol MDI. Patient treated with Levaquin 750 mg p.o. I discussed case with transplant physician at [facility] who recommended discontinuing the CellCept at this time and having patient follow-up with them within the next week.] Treatment Plan: [We will be treated with Levaquin. Patient will discontinue CellCept for the next week and he is to get his instructions from the transplant team. Patient is advised to return if increasing shortness of breath or condition should worsen anyway. At this time he does not meet admission criteria.] Patient was not hypoxic with ambulation in department. Disposition: [Discharged home in stable condition] Impression: [Covid pneumonia History of renal transplant] This note was generated with [employer] dictation software. It may contain incorrect words, spelling, and punctuation that were not noted in review of the chart prior to signing ED Disposition - Plan for ED Patient: Referrals: Jesus Collins MD [Primary Care Provider] -
--- NOTE | 2020-01-09 21:30 | ED.DEP ---
ED Disposition - Plan for ED Patient: Instructions: ED Upper Resp Infec Abx Tx Prescriptions: Levofloxacin [Levaquin] 750 mg PO DAILY #4 tab Prescription Printed Referrals: Jesus Collins MD [Primary Care Provider] - 5-7 Days
[2020-01-09] MEDS: levoFLOXacin 750 MG Tablet PO (21:40)
--- NOTE | 2020-01-09 21:59 | ED.RN ---
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
== END 2020-01-09 22:11 | disposition home or self-care (01) ==
LOC: ED 19:07
PROVIDERS: Emergency Provider Emergency Medicine; PCP Family Medicine
DX: U07.1 COVID-19 (principal); J12.89 Other viral pneumonia; Z94.0 Kidney transplant status; I10 Essential (primary) hypertension; E78.00 Pure hypercholesterolemia, unspecified
CPT/HCPCS: 71045; 80048; 81001; 83605; 84484; 85025; 85379; 87040; 93005; 99284; A4216

== ENCOUNTER 2020-01-18 16:14 | Inpatient (IN) | payer MEDICARE, MEDICAID, SELFPAY ==
[2020-01-09 18:40] VITALS: BMI 30.3
[2020-01-18] VITALS (25 sets, daily range): BP systolic 91–163; BP diastolic 66–99; PULSE 73–112; RESP 12–43; TEMP 37.1–38; O2SAT 77–96; BMI 27.8; BMI 26.0; BMI 26.1
--- NOTE | 2020-01-18 16:20 | EKG12_ITS ---
Test Reason : SOB Blood Pressure : / mmHG Vent. Rate : 110 BPM Atrial Rate : 110 BPM P-R Int : 130 ms QRS Dur : 124 ms QT Int : 390 ms P-R-T Axes : 048 -02 007 degrees QTc Int : 527 ms Sinus tachycardia with occasional Premature ventricular complexes Right bundle branch block Possible Inferior infarct , age undetermined Abnormal ECG Confirmed by EMPERATRIZ DAVILA, ELIZABETH ([id number]), editor managing director NEAL WOMACK ([id number]) on 01/21/2020 12:42:29 PM Referred By: Confirmed By:ELIZABETH AWAN MD
--- NOTE | 2020-01-18 16:30 | ED.DCSUM_ITS ---
- ER Visit Summary Date of Service: 01/18/20 Chief Complaint: Shortness of breath History of Present Illness: The patient is a 54 M presenting with shortness of breath. Patient states he was tested for Covid on January 01 and was positive. He has been progressively worsening since that time. He has cough and chest pain when he coughs. His shortness of breath is progressively worsening. EMS was called today. His pulse ox was 45% on room air, 72% on nonrebreather. History of kidney transplant 2005. He is on prednisone chronically. Physical Examination: Blood pressure 146/90, temperature 98.4, heart rate 109, respiratory rate 43. Pulse ox 77% on nonrebreather mask. HEENT exam is unremarkable. Neck is supple. Lungs are wheezing, diminished bilaterally. Retractions Heart is regular tachycardic. Abdomen is soft nontender nondistended. Extremities are unremarkable. Skin is warm and dry. No focal neurologic deficit. Remainder of exam is unremarkable. Emergency Department Course and Treatment: Patient was placed on BiPAP on arrival. CBC showed white count 21.4, hemoglobin 12.8. Chemistries show CO2 18, glucose 188, BUN 52, creatinine 2.79. ALT 70, AST 95. Troponin 0.162. Lactic acid 2.3. Blood cultures were sent. Chest x-ray shows Extensive multilobar airspace disease suggesting pneumonia, including viral causes. EKG is sinus tachycardia rate of 110 with right bundle branch block. Discussed with hospitalist. Due to concern for secondary bacterial pneumonia he was given meropenem IV. Patient has improvement on BiPAP. His pulse ox is in the mid 90s. His work of breathing has improved and he is resting comfortably. He will be admitted to the ICU. Disposition: Admission Impression: Covid pneumonia, hypoxia, history of renal transplant This note was generated with [employer] dictation software. It may contain incorrect words, spelling, and punctuation that were not noted in review of the chart prior to signing ED Disposition - Plan for ED Patient: Referrals: Jesus Collins MD [Primary Care Provider] -
[2020-01-18 16:38] LABS: Absolute Lymphocyte Count 1.21 X10^3/uL (0.83-4.51); Absolute Neutrophil Count 17.8 X10^3/uL (2.0-7.7); Basophil# 0.06 X10^3/uL; Basophil% 0.3 % (0-1); Hematocrit 39.7 % (40-54); Hemoglobin 12.8 g/dL (13.0-16.5); Lymphocyte # 1.21 X10^3/ul (4.0); Lymphocyte % 5.6 % (19-41); Mean Corp Hgb Conc 32.2 g/dL (32-36); Mean Corpuscular Hgb 27.9 pg (27.0-32.0); Mean Corpuscular Volume 86.7 fL (80-94); Mean Platelet Vol. 9.2 fl (6.2-12.0); Monocyte# 1.54 X10^3/uL; Monocyte% 7.2 % (0-10); NRBC Flagged by Analyzer 0.3 % (0-5); Neutrophil # 17.75 X10^3/uL (2.7-7.7); Neutrophil % 82.9 % (47-70); POSITIVE DIFFERENTIAL YES; POSITIVE MORPHOLOGY YES; Platelet Count 307 K/mm3 (150-450); RBC Distribution Width CV 12.9 % (11.6-14.6); RBC Distribution Width SD 40.5 fl (35.1-43.9); Red Blood Count 4.58 M/mm3 (4.6-6.2); White Blood Count 21.4 K/mm3 (4.4-11.0)
[2020-01-18 16:50] LABS: Allen Test Positive; Base Excess -9 mmol/L (-2 to +2); Bicarbonate 16.6 mmol/L (22-26); Blood Gas Specimen Type ART; FI02 100; O2 Delivery Device BiPAP; PO2 74 mmHG (75-100); SITE R Radial; SO2 94 % (95-99); Total Carbon Dioxide 18 mmol/L; pCO2 30.3 mmHg (35-45); pH 7.35 (7.35-7.45)
[2020-01-18 16:59] LABS: ALB/GLOB Ratio 0.5 RATIO (0.9-2.4); AST(SGOT) 95 U/L (15-37); Alanine Aminotransfer ALT/SGPT 70 U/L (16-61); Albumin, Serum 2.5 g/dL (3.2-5.0); Alkaline Phosphatase 76 U/L (45-117); Anion Gap 12 (5-15); BUN 52 mg/dL (7-18); BUN/Creat Ratio 18.6 RATIO (10-20); Calcium,Total 8.6 mg/dL (8.5-10.1); Chloride 104 mmol/L (98-107); Creatinine, Serum 2.79 mg/dL (0.70-1.30); EST Glomerular Filtration Rate 25 mL/min (>60); Est Glom Filt Rate - Afr Amer 31 mL/min (>60); Estimated Creatinine Clearance 29.28 ml/min; Globulin 4.8 g/dL (2.2-4.2); Glucose 188 mg/dL (74-106); Potassium 4.4 mmol/L (3.5-5.1); Protein, Total 7.3 g/dL (6.4-8.2); Sodium Level 134 mmol/L (136-145)
--- NOTE | 2020-01-18 17:00 | RAD_ITS ---
STUDY: X-RAY CHEST REASON FOR EXAM: Male, 54 years old. covid postive on 12/24. 45% on RA per ems. 72% on NRB TECHNIQUE: AP COMPARISON: 01/09/2020 FINDINGS: EKG leads project over the chest. Extensive multilobar airspace consolidation involving the left more than right lung. Lungs are less expanded as compared to the prior study. No sizable pleural effusion. Normal size heart. Normal mediastinum and yessi. Normal visualized pulmonary arteries. Normal visualized aortic arch and descending thoracic aorta. There is a dextroscoliosis of the thoracic spine. There operative changes of the bilateral humeral heads. There is no demonstrated abnormality of the visualized soft tissue structures of the upper abdomen. RAD/Chest 1 View (Portable) IMPRESSION: 1. Extensive multilobar airspace disease suggesting pneumonia, including viral causes. Electronically Signed: Tyrone Borrero MD (Brooks) at 17:22 EST , Service support ,
[2020-01-18 17:08] LABS: Lactic Acid 2.3 mmol/L (0.4-1.9)
[2020-01-18 17:12] LABS: Differential Indicated SCAN CRITERIA MET
[2020-01-18 17:32] LABS: Differential Comment SCANNED
[2020-01-18] MEDS: dexAMETHasone 4 MG/ML Vial 6 MG IV (18:14)
--- NOTE | 2020-01-18 18:50 | PCM.HP.STD ---
Problem List (1) Shortness of breath Status: Acute (2) COVID-19 virus infection Status: Acute History of Present Illness Date of Admission: 01/18/20 Chief Complaint: Shortness of breath, COVID-19 infection The patient is a 54 year old M was seen in the emergency room at [facility] with chief complaint of severe shortness of breath, he had been diagnosed with a COVID-19 infection on January 02, 2020, he was brought in by squad and the squad found that his pulse ox on room air was 45%. Patient had been last seen in the emergency room on 01/09/2020 and was complaining of shortness of breath at that time, x-ray of the chest at that time showed bilateral infiltrates consistent with Covid pneumonia, patient's D-dimer was normal, and the patient was able to be discharged home on Levaquin, and albuterol MDI, and before he was discharged, Dr. Brown the emergency room physician talked with a transplant physician at [facility] who recommended discontinuing the patient's CellCept. Patient was not hypoxic on ambulation during this previous ER visit. Patient was immediately placed on BiPAP today when he got to the emergency room, lab was obtained which showed an elevated white blood cell count at 21.4, hemoglobin was 12.8, chemistry profile was abnormal for creatinine of 2.79, BUN of 52, glucose of 188, patient's AST and ALT were elevated at 95 and 70 respectively, patient's troponin was 0.162, his lactic acid was 2.3. On BiPAP with an FiO2 of 1.00, patient had arterial blood gases: pH 7.35, PCO2 30.3, PO2 74. Patient had a chest x-ray performed which showed diffuse bilateral infiltrates in both lungs. Patient was approached concerning his CODE STATUS, he confirmed that he was a full code including intubation. Patient will be admitted to ICU for acute hypoxic respiratory failure and COVID-19 pneumonia, I have elected to place him on meropenem for possible community-acquired severe pneumonia, I talked with infectious diseases by phone and they recommended administration of remdesivir even with the patient's current renal function. Patient will be placed on IV dexamethasone and he will be seen in consultation by infectious diseases. Prognosis is very guarded at this time. Past Medical History Past Medical History (Chronic Problems): Chronic Problems (Last Updated 09/02/18 @ 13:55 by Katheryn Mosqueda) Essential (primary) hypertension (Chronic) History of renal transplant (Chronic 2005) 2005 for congenital defect Right bundle branch block (Chronic) Hyperlipidemia (Chronic) Medical History: Medical History (Last Updated 09/02/18 @ 13:55 by Katheryn Mosqueda) Essential (primary) hypertension (Chronic) I10 Right bundle branch block (Chronic) I45.10 Hyperlipidemia (Chronic) E78.5 Obesity E66.9 Allergies No Known Allergies Allergy (Verified 01/09/20 18:40) Home Medications: Ambulatory Orders Medication Instructions Recorded Famotidine [Pepcid] 20 mg PO DAILY 11/19/12 aspirin 81 mg tablet,delayed 81 mg PO DAILY tab 04/11/17 release mycophenolate mofetil 250 mg 500 mg PO BID 04/16/17 capsule prednisone 5 mg tablet 7.5 mg PO QDAY 04/16/17 tacrolimus 0.5 mg capsule 0.5 mg PO .COMPLEX 04/16/17 clonidine HCl 0.3 mg tablet 0.3 mg PO TID tab 11/30/17 Lisinopril [Zestril] 10 mg PO DAILY 11/07/18 Atorvastatin Calcium [Lipitor] 10 mg PO QHS 11/13/18 Cholecalciferol (Vitamin D3) 2,000 unit PO DAILY 11/13/18 [Vitamin D3] Diltiazem HCl [Taztia Xt] 360 mg PO DAILY 11/13/18 Levofloxacin [Levaquin] 750 mg PO DAILY #4 tab 01/09/20 Sulfamethoxazole/Trimethoprim 1 tab PO DAILY 01/18/20 [Sulfamethoxazole-Tmp Ss Tablet] Surgical History: Surgical History (Last Updated 07/04/18 @ 20:05 by Katheryn Mosqueda) History of renal transplant (Chronic) Onset Date: 2005 Z94.0 2005 for congenital defect H/O repair of left rotator cuff Z98.890 H/O repair of right rotator cuff Z98.890 Surgical History: - - renal x-plant, fistula, bilateral shoulder surgery Psychiatric History: No pertinent psych hx Lives: With Family Smoking Status: Former smoker Tobacco Use: Non-smoker Alcohol: None Drugs: None - *Family History Maternal Family History: Family History (Last Reviewed 06/01/17 @ 09:[address] Mundo Balderrama MD) Mother History of kidney disease History Items: No pertinent history Paternal Family History: Family History (Last Reviewed 06/01/17 @ 09:[address] Mundo Balderrama MD) Mother History of kidney disease History Items: No pertinent history Review of Systems Constitutional: Reports: Malaise, Weakness, Fatigue. Denies: Anorexia, Chills, Fever, Night Sweats, Weight Change Eyes: Denies: Blurred vision, Cataracts, Conjunctivae Inflammation, Double vision HEENT: Denies: Difficulty Swallowing, Dysphasia, Ear Pain, Eye Pain, Hearing Changes, Nasal bleeding, Nasal Congestion, Post Nasal Drip Cardiovascular: Denies: Chest Pain, Claudication, Chest Pressure, Chest Tightness, Edema, Heaviness, Palpitations Respiratory: Reports: Shortness of Breath, Shortness of breath at rest, Shortness of breath upon exertion. Denies: Cough, Hemoptysis, Sputum production, Wheezing Gastrointestinal: Denies: Abdominal Pain, Constipation, Diarrhea, Hematemesis, Hematochezia, Nausea, Melena, Vomiting Genitourinary: Denies: Dysuria, Frequency, Hematuria, Hesitancy, Nocturia, Retention, Urgency Musculoskeletal: Denies: Joint Pain, Joint stiffness, Joint swelling Skin: Denies: Dryness, Jaundice, Pruritis, Rash Neurological: Denies: Blurred vision, Double vision, Slurred speech, Difficulty swallowing, Focal weakness, Numbness, Tingling Psychiatric: Denies: Anxiety, Depression, Homicidal Ideations, Suicidal Ideations Endocrine: Denies: Change in Body Habitus, Heat/ Cold Intolerance, Polydipsia, Polyuria Hematologic/ Lymphatic: Denies: Adenopathy, Anemia, Easy Bruising, Easy Bleeding, Petechiae, Purpura VTE Information - Inpt Only VTE Present on Admission: No VTE Mechan Device Prophylaxis: None VTE Pharm Prophylaxis ordered?: Yes - Physical Exam Vitals/I&O's: Vital Signs Temp Pulse Resp BP Pulse Ox 99.0 F 89 35 H 122/74 H 95 01/18/20 18:20 01/18/20 18:20 01/18/20 18:20 01/18/20 18:20 01/18/20 18:20 Oxygen Delivery Method Bi-pap Weight: 83 kg Body Mass Index (BMI) 27.8 General: Alert, Oriented x3, Cooperative, Well developed, Well nourished, - - Patient has shallow respirations and is on BiPAP at this time but is able to carry on a conversation without difficulty. HEENT: Atraumatic, PERRLA, EOMI, Normocephalic Oral: Moist Mucosa Neck: Supple, No JVD, Negative Carotid Bruits, Trachea Midline, Thyroid Normal Size and Texture Lungs: No rhonchi, No wheeze, No rales, Diminished Cardiovascular: Regular rate, Regular Rhythm, Normal S1, Normal S2, No murmurs, PMI Normal, No rub noted, No Gallop Abdomen: Bowel Sounds Present, Soft, Non Tender, Non-Distended, No hernias noted Extremities: No clubbing, No cyanosis, No edema, Capillary Refill Less than 3 Seconds Skin: No rashes, No breakdown Musculoskeletal: No Tenderness to Palpation of Joints or Extremities Neurological: Cranial nerves II-XII grossly intact, Neuro grossly intact, Sensory exam intact to light touch and pain Psych/Mental Status: Normal Affect, Appropriate, Alert and oriented to time, place, person, mood and affect Laboratory Results 01/18/20 16:25: WBC 21.4 H, RBC 4.58 L, Hgb 12.8 L, Hct 39.7 L, MCV 86.7, MCH 27.9, MCHC 32.2, RDW Std Deviation 40.5, RDW Coeff of Genaro 12.9, Plt Count 307, MPV 9.2, Immature Gran % (Auto) 4.000 H, Neut % (Auto) 82.9 H, Lymph % (Auto) 5.6 L, [place] % (Auto) 7.2, Eos % (Auto) 0.0, Baso % (Auto) 0.3, Absolute Neuts (auto) 17.8 H, Absolute Lymphs (auto) 1.21, Nucleated RBC % 0.3, Differential Comment SCANNED, Diff Path Review May foll 01/18/20 16:25: Sodium 134 L, Potassium 4.4, Chloride 104, Carbon Dioxide 18.0 L, Anion Gap 12, BUN 52 H, Creatinine 2.79 H, Estim Creat Clear Calc 29.28, Est GFR (MDRD) Af Amer 31 L, Est GFR (MDRD) Non-Af 25 L, BUN/Creatinine Ratio 18.6, Glucose 188 H, Calcium 8.6, Total Bilirubin 0.40, AST 95 H, ALT 70 H, Alkaline Phosphatase 76, Troponin I 0.162 H, Total Protein 7.3, Albumin 2.5 L, Globulin 4.8 H, Albumin/Globulin Ratio 0.5 L 01/18/20 16:25: Lactic Acid 2.3 H* 01/18/20 16:45: Specimen Type ART, Sample Site R Radial, pH 7.35, Bicarbonate Actual 16.6 L, Total CO2 18, Base Excess -9 L, O2 Saturation 94 L, O2 % 100, ABG pCO2 30.3 L, ABG pO2 74 L, Erlin Test Positive, O2 Delivery Device BiPAP 01/18/20 18:40: D-Dimer Quant (PE/DVT) Pending Current Medications Meropenem 1 gm/ Sodium (Chloride) 120 mls @ 33 mls/hr IV Q8 KEARA Stop: 01/18/20 21:39 Last Admin: 01/18/20 18:13 Dose: 33 mls/hr Documented by: Assessment/Plan All Active Problems (Last Updated 09/02/18 @ 13:55 by Katheryn Mosqueda) Shortness of breath (Acute) COVID-19 virus infection (Acute) #1 acute hypoxic respiratory failure secondary to COVID-19 infection-patient will be admitted to ICU on BiPAP, patient will have aerosol treatments ordered, his oxygen will be monitored and adjusted as needed. Patient will be seen by critical care in consultation. #2 acute bilateral Covid 19 pneumonia-patient will be placed on remdesivir and dexamethasone, patient will be seen by infectious diseases tomorrow #3 chronic kidney disease stage III to stage IV-labs will be monitored #4 hyperlipidemia #5 essential hypertension #6 possible bilateral community-acquired pneumonia-I placed the patient on meropenem, he will be seen by infectious diseases tomorrow #7 elevated troponin-etiology unclear, possibly secondary to COVID-19 hypoxia/pneumonia Inpatient E&M: 58083 Init Hosp L3
[2020-01-18 19:16] LABS: D-Dimer Quantitative (DVT/PE) 4.26 FEU/ug/m (0.27-0.49)
--- NOTE | 2020-01-18 19:27 | ED.RN ---
this nurse called pt's mother, Joslyn, and she will bring in pt's medications, pt is going to ICU 201, Joslyn informed of same.
[2020-01-18] MEDS: Etomidate 20 MG/10 ML Vial IV (20:15)
[2020-01-18] MEDS: Propofol 10MG/Ml 1,000 MG/100 ML Bottle 5 MG CONT INF (20:30)
[2020-01-18 20:33] LABS: Reflex Lactate? Y
--- NOTE | 2020-01-18 20:40 | RAD_ITS ---
STUDY: X-RAY CHEST REASON FOR EXAM: Male, 54 years old. ETT tube placement. TECHNIQUE: Single AP portable view of the chest. COMPARISON: Same day 5:02 PM. FINDINGS: Endotracheal tube terminates 3.7 cm above the steve. Nasogastric tube terminates in the proximal stomach. No other changes since 3.5 hours earlier. Electronically Signed: Mike Moreno MD at 21:44 EST , Service support , RAD/Chest 1 View (Portable)
--- NOTE | 2020-01-18 20:51 | CPS ---
Pt.'s EPAP increased to 10; promote alveolar recruitment for oxygen demands
[2020-01-18 21:21] LABS: Lactic Acid 1.3 mmol/L (0.4-1.9)
--- NOTE | 2020-01-18 21:25 | ED.RN ---
kaylin mcknight updated on pt's status.
[2020-01-18] MEDS: Midazolam 5 MG/ML Syringe 2 MG IV (21:36)
[2020-01-18 22:58] LABS: International Normalized Ratio 1.4; Prothrombin Time (Protime)PT. 16.4 SECONDS (11.7-14.9)
[2020-01-18 22:59] LABS: Partial Thromboplast Time 29.1 Seconds (24.1-36.2)
[2020-01-18] MEDS: Chlorhexidine 15 ML PO (23:00)
[2020-01-18] MEDS: HEPARIN/D5w 25,000 UNITS 25,000 UNITS/250 ML IV.SOLN. 12 UNITS IV (23:30)
[2020-01-18] MEDS: Heparin Injection (Vial) 5,000 UNIT/ML VIAL 5000 UNIT IV (23:42)
[2020-01-19] VITALS (36 sets, daily range): BP systolic 85–132; BP diastolic 50–78; PULSE 71–118; RESP 14–37; TEMP 36.3–37.8; O2SAT 90–100; BMI 26.0
[2020-01-19] MEDS: Propofol 10MG/Ml 1,000 MG/100 ML Bottle 17.4 MG CONT INF ×5 (00:28→20:00)
--- NOTE | 2020-01-19 00:57 | PN_ITS ---
Progress Note Nurse reported blood pressure is low so Cardizem will be held. Discontinue Cardizem and clonidine. Of note patient will be at risk for rebound h ypertension. STROKE Vital Signs/Narrative: Vital Signs Temp Pulse Resp BP BP Pulse Ox 01/19/20 00:30 99.3 F H 79 24 H 88/58 L 91 01/19/20 00:00 99.9 F H 85 25 H 89/67 L 92 01/18/20 23:30 100.3 F H 87 27 H 93/71 92 01/18/20 23:00 100.4 F H 92 28 H 91/68 91 01/18/20 22:56 93 01/18/20 22:45 100.4 F H 88 35 H 91/66 92 01/18/20 22:30 100.4 F H 95 29 H 108/68 90 01/18/20 22:25 96 28 H 91 01/18/20 22:21 98.8 F 93 33 H 104/73 90 01/18/20 21:42 94 33 H 103/68 90 01/18/20 21:24 93 34 H 130/85 H 92 01/18/20 21:13 95 32 H 130/85 H 94 01/18/20 21:00 97 34 H 130/76 H 92
[2020-01-19] MEDS: Ipratropium/Albuterol Sulfate 3 ML AMPUL.NEB INHALATION ×4 (01:46→18:50)
[2020-01-19 03:55] LABS: Absolute Lymphocyte Count 0.83 X10^3/uL (0.83-4.51); Absolute Neutrophil Count 18.5 X10^3/uL (2.0-7.7); Basophil# 0.06 X10^3/uL; Basophil% 0.3 % (0-1); Hematocrit 34.8 % (40-54); Hemoglobin 11.5 g/dL (13.0-16.5); Lymphocyte # 0.83 X10^3/ul (4.0); Mean Corpuscular Hgb 29.2 pg (27.0-32.0); Mean Corpuscular Volume 88.3 fL (80-94); Mean Platelet Vol. 10.5 fl (6.2-12.0); Monocyte# 0.73 X10^3/uL; Monocyte% 3.5 % (0-10); NRBC Flagged by Analyzer 0.1 % (0-5); Neutrophil # 18.54 X10^3/uL (2.7-7.7); Neutrophil % 88.4 % (47-70); Platelet Count 278 K/mm3 (150-450); RBC Distribution Width CV 13.1 % (11.6-14.6); RBC Distribution Width SD 42.3 fl (35.1-43.9); Red Blood Count 3.94 M/mm3 (4.6-6.2)
[2020-01-19] MEDS: 0.9% Saline Lock 10 ML Syringe IV (05:11)
[2020-01-19 05:29] LABS: ALB/GLOB Ratio 0.5 RATIO (0.9-2.4); AST(SGOT) 64 U/L (15-37); Alanine Aminotransfer ALT/SGPT 54 U/L (16-61); Alkaline Phosphatase 66 U/L (45-117); Anion Gap 12 (5-15); BUN 61 mg/dL (7-18); BUN/Creat Ratio 19.7 RATIO (10-20); Calcium,Total 8.2 mg/dL (8.5-10.1); Chloride 103 mmol/L (98-107); Creatinine, Serum 3.09 mg/dL (0.70-1.30); EST Glomerular Filtration Rate 23 mL/min (>60); Est Glom Filt Rate - Afr Amer 27 mL/min (>60); Estimated Creatinine Clearance 26.44 ml/min; Globulin 4.3 g/dL (2.2-4.2); Glucose 188 mg/dL (74-106); Partial Thromboplast Time 242.1 Seconds (24.1-36.2); Potassium 4.8 mmol/L (3.5-5.1); Protein, Total 6.3 g/dL (6.4-8.2); Sodium Level 133 mmol/L (136-145)
--- NOTE | 2020-01-19 08:07 | NT.THERAPY_ITS ---
Nutrition Therapy Report - History Current diet / nutrition support order:: clear liquids - Anthropometric Measurements Height:: 5 ft 8 in Weight:: 77.8 kg Body Mass Index (BMI):: 26.0 - Relevant Labs Relevant Labs:: WBC 21.0 K/mm3 (4.4-11.0) H 01/19/20 03:30 RBC 3.94 M/mm3 (4.6-6.2) L 01/19/20 03:30 Hgb 11.5 g/dL (13.0-16.5) L 01/19/20 03:30 Hct 34.8 % (40-54) L 01/19/20 03:30 Immature Gran % (Auto) 3.800 % (0.0-0.9) H 01/19/20 03:30 Neut % (Auto) 88.4 % (47-70) H 01/19/20 03:30 Lymph % (Auto) 4.0 % (19-41) L 01/19/20 03:30 Absolute Neuts (auto) 18.5 X10^3/uL (2.0-7.7) H 01/19/20 03:30 PT 16.4 SECONDS (11.7-14.9) H 01/18/20 22:40 APTT 242.1 Seconds (24.1-36.2) H* 01/19/20 05:10 D-Dimer Quant (PE/DVT) 4.26 FEU/ug/m (0.27-0.49) H* 01/18/20 18:40 Sodium 133 mmol/L (136-145) L 01/19/20 05:10 Carbon Dioxide 18.0 mmol/L (21.0-32.0) L 01/19/20 05:10 BUN 61 mg/dL (7-18) H 01/19/20 05:10 Creatinine 3.09 mg/dL (0.70-1.30) H 01/19/20 05:10 Est GFR (MDRD) Af Amer 27 mL/min (>60) L 01/19/20 05:10 Est GFR (MDRD) Non-Af 23 mL/min (>60) L 01/19/20 05:10 Glucose 188 mg/dL (74-106) H 01/19/20 05:10 Lactic Acid 2.3 mmol/L (0.4-1.9) H* 01/18/20 16:25 Calcium 8.2 mg/dL (8.5-10.1) L 01/19/20 05:10 AST 64 U/L (15-37) H 01/19/20 05:10 ALT 70 U/L (16-61) H 01/18/20 16:25 Troponin I 0.162 ng/mL (<0.045) H 01/18/20 16:25 Total Protein 6.3 g/dL (6.4-8.2) L 01/19/20 05:10 Albumin 2.0 g/dL (3.2-5.0) L 01/19/20 05:10 Globulin 4.3 g/dL (2.2-4.2) H 01/19/20 05:10 Albumin/Globulin Ratio 0.5 RATIO (0.9-2.4) L 01/19/20 05:10 - Assessment Food / Nutrition-Related History:: Unable to talk to pt d/t sedated and on vent. Has OG to wall suction w/ green/brown output. Failed SAT screen this am. UBW: not known. Pt currently on clear liquids. [ End ] - Nutrition Diagnosis Problem / Etiology / Signs & Symptoms (PES):: Pt with suboptimal po intake r/t sedated and on vent aeb NPO status. Evidence of Malnutrition Exists:: No - Nutrition Intervention Nutrition Prescription:: [id number] lucia / 100-120 gm pro / day - Food / Nutrient Delivery Interventions Summary of nutrition intervention:: Will change diet to NPO d/t pt on vent. If pt to remain on vent, rec enteral nutrition support - rec Vital AF 1.2 at goal rate 60 ml/hr with 100 ml H2O flush every 4 hours to provide ~ 1728 lucia / 108 gm pro / 1767 ml free water per day. Would start tf at 20 ml/hr and increase by 20 ml every 6-8 hrs as pt tolerates until goal rate achieved. When pt medically able, rec DELMA to Cardiac/ sodium restricted d/t pmhx - consistency per [employer]. [ End ] Nutrition support ordered as / adjusted to:: If pt to remain on vent, rec enteral nutrition support - rec Vital AF 1.2 at goal rate 60 ml/hr with 100 ml H2O flush every 4 hours to provide ~ 1728 lucia / 108 gm pro / 1767 ml free water per day. Would start tf at 20 ml/hr and increase by 20 ml every 6-8 hrs as pt tolerates until goal rate achieved. . [ End ] Nutrition education provided?: No - MNT Monitoring Further MNT monitoring and evaluation required?: Yes MNT Follow-up in:: 3-5 days - please call RD/LD if questions at [phone]
[2020-01-19] MEDS: dexAMETHasone 10 MG/ML Vial 6 MG IV (10:10)
[2020-01-19] MEDS: Chlorhexidine 15 ML PO ×2 (10:10→21:40)
[2020-01-19] MEDS: Tacrolimus 0.5 MG Capsule 1 MG GT ×2 (10:12→21:39)
[2020-01-19] MEDS: Famotidine 20 MG Tablet GT (10:12)
[2020-01-19] MEDS: Smz/Tmp Ds Tablet 0.5 TABLET GT (10:12)
[2020-01-19] MEDS: Aspirin 81 MG TAB.CHEW GT (10:13)
--- NOTE | 2020-01-19 10:13 | PCM.PROGNOTE ---
Patient Problems: Active and Suspected Problems (Last Updated 09/02/18 @ 13:55 by Katheryn Mosqueda) COVID-19 virus infection (Acute) Acute respiratory failure with hypoxia (Acute) Subjective: Chief complaint: Follow-up after admission for acute COVID-19 pneumonia and acute hypoxic respiratory failure. Patient seen and examined. He remains on mechanical ventilation, PEEP is down to 12 and FiO2 is down to 80%. Minimal improvement. He is on sedation, arousable to verbal stimuli, not communicating. He is afebrile, blood pressure and heart rate are stable, on mechanical ventilation. - Physical Exam Vitals/I&O's: Vital Signs Temp Pulse Resp BP Pulse Ox 97.3 F L 77 28 H 99/75 100 01/19/20 07:00 01/19/20 08:00 01/19/20 07:10 01/19/20 07:00 01/19/20 07:10 Oxygen Delivery Method Mechanical Ventilator Weight: 171 lb 8.314 oz Body Mass Index (BMI) 26.0 Intake and Output for Last 24 Hours 01/17/20 01/18/20 01/19/20 23:59 23:59 23:59 Intake Total 196.43 / 207.01 645.41 / 645.41 Output Total 450 / 450 300 / 300 Balance -253.57 / -242.99 345.41 / 345.41 General: - - Sleepy, sedated, open eyes to verbal stimuli. HEENT: Atraumatic, PERRLA, EOMI, Normocephalic Oral: Moist Mucosa, No Gingival or Mucosal Lesions/ Ulcerations Neck: Supple, No JVD, Negative Carotid Bruits, Trachea Midline, Thyroid Normal Size and Texture Lungs: No rhonchi, No wheeze, No rales, Diminished, - - Decreased with sounds bilateral, otherwise clear. Cardiovascular: Regular rate, Regular Rhythm, Normal S1, Normal S2 Abdomen: Bowel Sounds Present, Soft, Non Tender, Non-Distended, No Hepato-splenomegaly, Obese Extremities: No clubbing, No cyanosis, No edema Skin: No rashes, No breakdown Lymphatic: No Cervical, Supraclavicular, or Inguinal Adenopathy Neurological: Cranial nerves II-XII grossly intact, Neuro grossly intact Psych/Mental Status: - - Unable to assess, patient is sedated. Laboratory Results 01/18/20 16:25: WBC 21.4 H, RBC 4.58 L, Hgb 12.8 L, Hct 39.7 L, MCV 86.7, MCH 27.9, MCHC 32.2, RDW Std Deviation 40.5, RDW Coeff of Genaro 12.9, Plt Count 307, MPV 9.2, Immature Gran % (Auto) 4.000 H, Neut % (Auto) 82.9 H, Lymph % (Auto) 5.6 L, [place] % (Auto) 7.2, Eos % (Auto) 0.0, Baso % (Auto) 0.3, Absolute Neuts (auto) 17.8 H, Absolute Lymphs (auto) 1.21, Nucleated RBC % 0.3, Differential Comment SCANNED, Diff Path Review June01/18/20 16:25: Sodium 134 L, Potassium 4.4, Chloride 104, Carbon Dioxide 18.0 L, Anion Gap 12, BUN 52 H, Creatinine 2.79 H, Estim Creat Clear Calc 29.28, Est GFR (MDRD) Af Amer 31 L, Est GFR (MDRD) Non-Af 25 L, BUN/Creatinine Ratio 18.6, Glucose 188 H, Calcium 8.6, Total Bilirubin 0.40, AST 95 H, ALT 70 H, Alkaline Phosphatase 76, Troponin I 0.162 H, Total Protein 7.3, Albumin 2.5 L, Globulin 4.8 H, Albumin/Globulin Ratio 0.5 L 01/18/20 16:25: Lactic Acid 2.3 H* 01/18/20 16:45: Specimen Type ART, Sample Site R Radial, pH 7.35, Bicarbonate Actual 16.6 L, Total CO2 18, Base Excess -9 L, O2 Saturation 94 L, O2 % 100, ABG pCO2 30.3 L, ABG pO2 74 L, Erlin Test Positive, O2 Delivery Device BiPAP 01/18/20 18:40: D-Dimer Quant (PE/DVT) 4.26 H* 01/18/20 20:45: Lactic Acid 1.3 01/18/20 22:40: PT 16.4 H, INR 1.4, APTT 29.1 01/19/20 03:30: WBC 21.0 H, RBC 3.94 L, Hgb 11.5 L, Hct 34.8 L, MCV 88.3, MCH 29.2, MCHC 33.0, RDW Std Deviation 42.3, RDW Coeff of Genaro 13.1, Plt Count 278, MPV 10.5, Immature Gran % (Auto) 3.800 H, Neut % (Auto) 88.4 H, Lymph % (Auto) 4.0 L, [place] % (Auto) 3.5, Eos % (Auto) 0.0, Baso % (Auto) 0.3, Absolute Neuts (auto) 18.5 H, Absolute Lymphs (auto) 0.83, Nucleated RBC % 0.1 01/19/20 03:30: Sodium Cancelled, Potassium Cancelled, Chloride Cancelled, Carbon Dioxide Cancelled, Anion Gap Cancelled, BUN Cancelled, Creatinine Cancelled, Estim Creat Clear Calc Cancelled, Est GFR (MDRD) Af Amer Cancelled, Est GFR (MDRD) Non-Af Cancelled, BUN/Creatinine Ratio Cancelled, Glucose Cancelled, Calcium Cancelled, Total Bilirubin Cancelled, AST Cancelled, ALT Cancelled, Alkaline Phosphatase Cancelled, Total Protein Cancelled, Albumin Cancelled, Globulin Cancelled, Albumin/Globulin Ratio Cancelled 01/19/20 05:10: APTT 242.1 H* 01/19/20 05:10: Sodium 133 L, Potassium 4.8, Chloride 103, Carbon Dioxide 18.0 L, Anion Gap 12, BUN 61 H, Creatinine 3.09 H, Estim Creat Clear Calc 26.44, Est GFR (MDRD) Af Amer 27 L, Est GFR (MDRD) Non-Af 23 L, BUN/Creatinine Ratio 19.7, Glucose 188 H, Calcium 8.2 L, Total Bilirubin 0.30, AST 64 H, ALT 54, Alkaline Phosphatase 66, Total Protein 6.3 L, Albumin 2.0 L, Globulin 4.3 H, Albumin/Globulin Ratio 0.5 L Clinical Impression(s) from Imaging Studies Chest X-Ray 01/18/20 17:00 IMPRESSION: 1. Extensive multilobar airspace disease suggesting pneumonia, including viral causes. Electronically Signed: Tyrone Borrero MD ([place]) at 17:22 EST , Service support , Chest X-Ray 01/18/20 20:40 Current Medications Acetaminophen (Acetaminophen 325 Mg Tablet) 650 mg PO Q6H PRN PRN PRN Reason: Pain Score 1-10/Temp > 100.7 F Albuterol/Ipratropium (Ipratropium/Albuterol Sulfate 3 Ml Ampul.Neb) 3 ml INHALATION Q6H.RT [facility] Last Admin: 01/19/20 07:09 Dose: 3 ml Documented by: Aspirin (Aspirin 81 Mg Tab.Chew) 81 mg GT DAILY [facility] Last Admin: 01/19/20 10:13 Dose: 81 mg Documented by: Chlorhexidine Gluconate (Chlorhexidine 15 Ml) 15 ml PO BID KEARA Last Admin: 01/19/20 10:10 Dose: 15 ml Documented by: Dexamethasone Sodium Phosphate (Dexamethasone 10 Mg/Ml Vial) 6 mg IV DAILY [facility] Last Admin: 01/19/20 10:10 Dose: 6 mg Documented by: Famotidine (Famotidine 20 Mg Tablet) 20 mg GT DAILY [facility] Last Admin: 01/19/20 10:12 Dose: 20 mg Documented by: Heparin Sodium (Porcine) (Heparin Injection (Vial) 5,000 Unit/Ml Vial) 0 unit IV UD PRN; Protocol PRN Reason: dose adjustment Propofol (Diprivan) 1,000 mg in 100 mls @ 4.98 mls/hr CONT INF .Q12H KEARA; Protocol Last Titration: 01/19/20 08:00 Dose: 35 mcg/kg/min, 17.4 mls/hr Documented by: Remdesivir 100 mg/ Sodium (Chloride) 250 mls @ 125 mls/hr IV DAILY [facility] Stop: 01/22/20 11:59 Meropenem 1 gm/ Sodium (Chloride) 120 mls @ 33 mls/hr IV Q12 KEARA Heparin Sodium/Dextrose () 25,000 units in 250 mls @ 11 mls/hr IV .[id number] KEARA; Protocol Last Titration: 01/19/20 07:30 Dose: 900 units/hr, 9 mls/hr Documented by: Fentanyl Citrate 1,000 mcg/ (Sodium Chloride) 100 mls @ 2.5 mls/hr CONT INF .Q40H KEARA; Protocol Last Titration: 01/19/20 08:19 Dose: 75 mcg/hr, 7.5 mls/hr Documented by: Sodium Chloride () 250 mls @ 15 mls/hr IV .[id number] PRN PRN Reason: Saline Flush Sodium Chloride () 250 mls @ 15 mls/hr IV .[id number] PRN PRN Reason: Additional IVPB Infusion Ondansetron HCl (Ondansetron 4 Mg/2 Ml Vial) 4 mg IV Q8H PRN PRN PRN Reason: NAUSEA/VOMITING Sodium Chloride (0.9% Saline Lock 10 Ml Syringe) 10 - 40 ml IV UD PRN PRN Reason: SALINE FLUSH Last Admin: 01/19/20 05:11 Dose: 20 ml Documented by: Tacrolimus (Tacrolimus 0.5 Mg Capsule) 1 mg GT Q12 [facility] Last Admin: 01/19/20 10:12 Dose: 1 mg Documented by: Trimethoprim/Sulfamethoxazole (Smz/Tmp Ds Tablet) 0.5 tablet GT DAILY [facility] Last Admin: 01/19/20 10:12 Dose: 0.5 tablet Documented by: Medical Necessity - Tobacco Use Smoking Status: Former smoker Tobacco Use: Non-smoker Assessment/Plan All Active Problems (Last Updated 09/02/18 @ 13:55 by Katheryn Mosqueda) COVID-19 virus infection (Acute) Acute respiratory failure with hypoxia (Acute) This is a 54 years old male patient presented to the emergency room because of shortness of breath, found to have COVID-19 pneumonia and his pulse ox dropped while patient was in the ED, needed to be intubated and started on mechanical ventilation. #1 acute bilateral COVID-19 pneumonia: He is on IV dexamethasone and remdesivir as well as IV meropenem. Remained on mechanical ventilation with PEEP of 12 and FiO2 of 80%, minimal improvement. He is on sedation with IV fentanyl and propofol. He is afebrile, blood pressure is borderline, heart rate stable. Blood and sputum cultures are pending. Critical care on the case. Infectious disease consulted. Plan to continue same treatment. #2 acute hypoxic respiratory failure: Secondary to #1. Currently, on mechanical ventilation. Plan as above. #3 abnormal cardiac enzymes: Likely due to demand ischemia. EKG without acute segment changes. #4 acute kidney injury on top of stage III chronic kidney disease: In the setting of history of renal transplant. Kidney function has been going up. Nephrology consulted. #5 hypertension: Currently, blood pressure is stable. Antihypertensive medications held. #6 hyperlipidemia: Statins held. #7 DVT prophylaxis: He is on IV heparin drip. This note was generated with [employer] dictation software. It may contain incorrect words, spelling, and punctuation that were not noted in checking the note before signing. Inpatient E&M: 36817 Subs Hosp L3
--- NOTE | 2020-01-19 10:42 | CASEMGMT ---
RN CM Assessment Note -participated in ICU interdisciplinary rounds. Pt remains intubated, on ventilator with 80% oxygen. Fentanyl and Propofol gtt, Remdesivir and Heparin gtt. Failed mobility screening- PT/OT on hold for today. Introduced role of CM to patient's father via phone. Demographics, PCP verified. Per patient's father, the patient lives independently at home with his parents. Past few days he had worsening condition and EMS was called to bring him to hospital. COVID TESTIN01.02.2020. Father not sure if testing was done @ [facility] or urgent care. -Patient's father has mild covid symptoms, however patient's mother is asymptomatic and neither have had testing. -they are able to isolate in home currently. Presentation: Resp failure/hx of COVID Diagnosis: COVID-19, pneumonia PCP: Dr. Collins Specialists: [facility] Insurance: [employer] [facility] Preferred Pharmacy: [facility] Pres[facility] Benefit: yes LNOK: Parents Living Arrangements: Lives with his parents in their home. Pt's father states pt is generally independent and normally does not require assistance with ADL. Tranportation: drives, or father can drive if needed DME: no ambulatory DME, no oxygen use @ home. If oxygen is needed, any [facility] oxygen provider ok per father. HHC: In past, not sure of agency SNF: no Patient DC Goals: home DC Plan: anticipate home on discharge. May need oxygen testing prior to discharge CM available for discharge planning coordination. Contact CM for any concerns/needs that may arise. Janis MALONEY RN ACM
--- NOTE | 2020-01-19 11:01 | PCM.CON.CC ---
Problem List (1) Acute respiratory failure with hypoxia Status: Acute (2) COVID-19 virus infection Status: Acute (3) Essential (primary) hypertension Status: Chronic (4) History of renal transplant Status: Chronic Comment: 2005 for congenital defect (5) Right bundle branch block Status: Chronic (6) Hyperlipidemia Status: Chronic Qualifiers: Hyperlipidemia type: pure hypercholesterolemia Qualified Code(s): E78.00 - Pure hypercholesterolemia, unspecified; E78.0 - Pure hypercholesterolemia Reason for Consult Date of Consultation: 01/19/20 Reason for Consultation: Respiratory failure History of Present Illness: The patient is a 54 year old M, with past medical history listed below, who presented [facility] on 01/18/2020 secondary to progressive shortness of breath. Patient was tested for COVID-19 on January 01 and was reportedly positive. Patient reportedly has been progressing since that time. Patient had reported a cough, chest pain and progressive shortness of breath. Patient does have a history of a renal transplant and EMS was called at his parents insistence. On arrival, EMS had reported a saturation of 45% on room air and 72% on a nonrebreather. Patient reportedly is on prednisone at as a baseline therapy. On arrival to the ER, patient was noted to be afebrile, tachycardic, tachypneic and saturating 77% on a nonrebreather. Patient was placed on BiPAP initially. Laboratory work-up showed a CBC with a white count of 21.4, hemoglobin of 12.8, bicarbonate of 18, BUN of 52 and creatinine of 2.8. Troponin was slightly elevated and lactate was also elevated. Chest x-ray showed extensive bilateral airspace disease. EKG showed sinus tachycardia with a right bundle branch block. Patient was given meropenem secondary to concern for superinfection. Prior to going to the intensive care unit, patient became more tachypneic and hypoxic. Patient was intubated using rapid sequence with a 7.5 endotracheal tube and admitted to the intensive care unit. Since being in the intensive care unit, patient continues to have difficulty with oxygenation. Patient has been as high as 100% FiO2 with 14 of PEEP. Patient is not able to provide any additional information at this time. Patient has been placed on systemic anticoagulation. PTT was supratherapeutic, but no bleeding complications have been reported. Unable to obtain a review of systems at this time. Past Medical History Past Medical History (Chronic Problems): Chronic Problems (Last Updated 09/02/18 @ 13:55 by Katheryn Mosqueda) Essential (primary) hypertension (Chronic) History of renal transplant (Chronic 2005) 2005 for congenital defect Right bundle branch block (Chronic) Hyperlipidemia (Chronic) Medical History: Medical History (Last Updated 09/02/18 @ 13:55 by Katheryn Mosqueda) Essential (primary) hypertension (Chronic) I10 Right bundle branch block (Chronic) I45.10 Hyperlipidemia (Chronic) E78.5 Obesity E66.9 Allergies No Known Allergies Allergy (Verified 01/09/20 18:40) Home Medications: Ambulatory Orders Medication Instructions Recorded Famotidine [Pepcid] 20 mg PO DAILY 11/19/12 aspirin 81 mg tablet,delayed 81 mg PO DAILY tab 04/11/17 release mycophenolate mofetil 250 mg 500 mg PO BID 04/16/17 capsule prednisone 5 mg tablet 7.5 mg PO QDAY 04/16/17 tacrolimus 0.5 mg capsule 0.5 mg PO .COMPLEX 04/16/17 clonidine HCl 0.3 mg tablet 0.3 mg PO TID tab 11/30/17 Lisinopril [Zestril] 10 mg PO DAILY 11/07/18 Atorvastatin Calcium [Lipitor] 10 mg PO QHS 11/13/18 Cholecalciferol (Vitamin D3) 2,000 unit PO DAILY 11/13/18 [Vitamin D3] Diltiazem HCl [Taztia Xt] 360 mg PO DAILY 11/13/18 Levofloxacin [Levaquin] 750 mg PO DAILY 01/18/20 Sulfamethoxazole/Trimethoprim 1 tab PO DAILY 01/18/20 [Sulfamethoxazole-Tmp Ss Tablet] Surgical History: Surgical History (Last Updated 07/04/18 @ 20:05 by Katheryn Mosqueda) History of renal transplant (Chronic) Onset Date: 2005 Z94.0 2005 for congenital defect H/O repair of left rotator cuff Z98.890 H/O repair of right rotator cuff Z98.890 Surgical History: - - renal x-plant, fistula, bilateral shoulder surgery Psychiatric History: No pertinent psych hx Lives: With Family Smoking Status: Former smoker Tobacco Use: Non-smoker Alcohol: None Drugs: None - *Family History Maternal Family History: Family History (Last Reviewed 06/01/17 @ 09:[address] Mundo Balderrama MD) Mother History of kidney disease History Items: No pertinent history Paternal Family History: Family History (Last Reviewed 06/01/17 @ 09:[address] Mundo Balderrama MD) Mother History of kidney disease History Items: No pertinent history Review of Systems Comment: See HPI Patient Problems: Active and Suspected Problems (Last Updated 09/02/18 @ 13:55 by Katheryn Mosqueda) Shortness of breath (Acute) COVID-19 virus infection (Acute) Objective: Multiple chest x-rays were reviewed showing bilateral infiltrates. Endotracheal tube and OG in appropriate position. Graph patient did have an echocardiogram in November 2018 showing an EF of 55% with pulmonary artery systolic pressure of 25 to 30 mmHg. Patient did have some mild aortic stenosis at that time with no pericardial effusion. Patient has not had any pulmonary function test completed. - Physical Exam Vitals/I&O's: Vital Signs Temp Pulse Resp BP Pulse Ox 36.3 C L 77 28 H 99/75 100 01/19/20 07:00 01/19/20 08:00 01/19/20 07:10 01/19/20 07:00 01/19/20 07:10 Oxygen Delivery Method Mechanical Ventilator Weight: 77.8 kg Body Mass Index (BMI) 26.0 Intake and Output for Last 24 Hours 01/17/20 01/18/20 01/19/20 23:59 23:59 23:59 Intake Total 196.43 / 207.01 695.33 / 695.33 Output Total 450 / 450 300 / 300 Balance -253.57 / -242.99 395.33 / 395.33 General: - - Intubated and sedated. Fair synchrony on ventilator. Still with accessory muscle use. HEENT: Atraumatic, PERRLA, EOMI, Normocephalic, - - Scleral injection without icterus Oral: Moist Mucosa, No Gingival or Mucosal Lesions/ Ulcerations Neck: Supple, No JVD, No Nodes, Trachea Midline Lungs: No rhonchi, No wheeze, No rales, Diminished, - - Symmetric expansion. Cardiovascular: Regular rate, Regular Rhythm, Normal S1, Normal S2, No murmurs, No rub noted, No Gallop Abdomen: Bowel Sounds Present, Soft, Non Tender, Distended - Slightly, Obese Extremities: No clubbing, No cyanosis, Edema Skin: No rashes, No breakdown Musculoskeletal: No Tenderness to Palpation of Joints or Extremities Lymphatic: No Cervical, Supraclavicular, or Inguinal Adenopathy Neurological: Cranial nerves II-XII grossly intact, Neuro grossly intact, Motor Exam 5/5 strength throughout Psych/Mental Status: Agitated, Restless Laboratory Results 01/18/20 16:25: WBC 21.4 H, RBC 4.58 L, Hgb 12.8 L, Hct 39.7 L, MCV 86.7, MCH 27.9, MCHC 32.2, RDW Std Deviation 40.5, RDW Coeff of Genaro 12.9, Plt Count 307, MPV 9.2, Immature Gran % (Auto) 4.000 H, Neut % (Auto) 82.9 H, Lymph % (Auto) 5.6 L, [place] % (Auto) 7.2, Eos % (Auto) 0.0, Baso % (Auto) 0.3, Absolute Neuts (auto) 17.8 H, Absolute Lymphs (auto) 1.21, Nucleated RBC % 0.3, Differential Comment SCANNED, Diff Path Review May foll 01/18/20 16:25: Sodium 134 L, Potassium 4.4, Chloride 104, Carbon Dioxide 18.0 L, Anion Gap 12, BUN 52 H, Creatinine 2.79 H, Estim Creat Clear Calc 29.28, Est GFR (MDRD) Af Amer 31 L, Est GFR (MDRD) Non-Af 25 L, BUN/Creatinine Ratio 18.6, Glucose 188 H, Calcium 8.6, Total Bilirubin 0.40, AST 95 H, ALT 70 H, Alkaline Phosphatase 76, Troponin I 0.162 H, Total Protein 7.3, Albumin 2.5 L, Globulin 4.8 H, Albumin/Globulin Ratio 0.5 L 01/18/20 16:25: Lactic Acid 2.3 H* 01/18/20 16:45: Specimen Type ART, Sample Site R Radial, pH 7.35, Bicarbonate Actual 16.6 L, Total CO2 18, Base Excess -9 L, O2 Saturation 94 L, O2 % 100, ABG pCO2 30.3 L, ABG pO2 74 L, Erlin Test Positive, O2 Delivery Device BiPAP 01/18/20 18:40: D-Dimer Quant (PE/DVT) 4.26 H* 01/18/20 20:45: Lactic Acid 1.3 01/18/20 22:40: PT 16.4 H, INR 1.4, APTT 29.1 01/19/20 03:30: WBC 21.0 H, RBC 3.94 L, Hgb 11.5 L, Hct 34.8 L, MCV 88.3, MCH 29.2, MCHC 33.0, RDW Std Deviation 42.3, RDW Coeff of Genaro 13.1, Plt Count 278, MPV 10.5, Immature Gran % (Auto) 3.800 H, Neut % (Auto) 88.4 H, Lymph % (Auto) 4.0 L, [place] % (Auto) 3.5, Eos % (Auto) 0.0, Baso % (Auto) 0.3, Absolute Neuts (auto) 18.5 H, Absolute Lymphs (auto) 0.83, Nucleated RBC % 0.1 01/19/20 03:30: Sodium Cancelled, Potassium Cancelled, Chloride Cancelled, Carbon Dioxide Cancelled, Anion Gap Cancelled, BUN Cancelled, Creatinine Cancelled, Estim Creat Clear Calc Cancelled, Est GFR (MDRD) Af Amer Cancelled, Est GFR (MDRD) Non-Af Cancelled, BUN/Creatinine Ratio Cancelled, Glucose Cancelled, Calcium Cancelled, Total Bilirubin Cancelled, AST Cancelled, ALT Cancelled, Alkaline Phosphatase Cancelled, Total Protein Cancelled, Albumin Cancelled, Globulin Cancelled, Albumin/Globulin Ratio Cancelled 01/19/20 05:10: APTT 242.1 H* 01/19/20 05:10: Sodium 133 L, Potassium 4.8, Chloride 103, Carbon Dioxide 18.0 L, Anion Gap 12, BUN 61 H, Creatinine 3.09 H, Estim Creat Clear Calc 26.44, Est GFR (MDRD) Af Amer 27 L, Est GFR (MDRD) Non-Af 23 L, BUN/Creatinine Ratio 19.7, Glucose 188 H, Calcium 8.2 L, Total Bilirubin 0.30, AST 64 H, ALT 54, Alkaline Phosphatase 66, Total Protein 6.3 L, Albumin 2.0 L, Globulin 4.3 H, Albumin/Globulin Ratio 0.5 L Clinical Impression(s) from Imaging Studies Chest X-Ray 01/18/20 17:00 IMPRESSION: 1. Extensive multilobar airspace disease suggesting pneumonia, including viral causes. Electronically Signed: Tyrone Borrero MD ([place]) at 17:22 EST , Service support , Chest X-Ray 01/18/20 20:40 Current Medications Acetaminophen (Acetaminophen 325 Mg Tablet) 650 mg PO Q6H PRN PRN PRN Reason: Pain Score 1-10/Temp > 100.7 F Albuterol/Ipratropium (Ipratropium/Albuterol Sulfate 3 Ml Ampul.Neb) 3 ml INHALATION Q6H.RT KEARA Last Admin: 01/19/20 07:09 Dose: 3 ml Documented by: Aspirin (Aspirin 81 Mg Tab.Chew) 81 mg GT DAILY [facility] Last Admin: 01/19/20 10:13 Dose: 81 mg Documented by: Chlorhexidine Gluconate (Chlorhexidine 15 Ml) 15 ml PO BID KEARA Last Admin: 01/19/20 10:10 Dose: 15 ml Documented by: Dexamethasone Sodium Phosphate (Dexamethasone 10 Mg/Ml Vial) 6 mg IV DAILY [facility] Last Admin: 01/19/20 10:10 Dose: 6 mg Documented by: Famotidine (Famotidine 20 Mg Tablet) 20 mg GT DAILY [facility] Last Admin: 01/19/20 10:12 Dose: 20 mg Documented by: Heparin Sodium (Porcine) (Heparin Injection (Vial) 5,000 Unit/Ml Vial) 0 unit IV UD PRN; Protocol PRN Reason: dose adjustment Propofol (Diprivan) 1,000 mg in 100 mls @ 4.98 mls/hr CONT INF .Q12H KEARA; Protocol Last Titration: 01/19/20 10:00 Dose: 35 mcg/kg/min, 17.4 mls/hr Documented by: Remdesivir 100 mg/ Sodium (Chloride) 250 mls @ 125 mls/hr IV DAILY [facility] Stop: 01/22/20 11:59 Last Admin: 01/19/20 10:30 Dose: 125 mls/hr Documented by: Meropenem 1 gm/ Sodium (Chloride) 120 mls @ 33 mls/hr IV Q12 KEARA Heparin Sodium/Dextrose () 25,000 units in 250 mls @ 11 mls/hr IV .[id number] KEARA; Protocol Last Titration: 01/19/20 07:30 Dose: 900 units/hr, 9 mls/hr Documented by: Fentanyl Citrate 1,000 mcg/ (Sodium Chloride) 100 mls @ 2.5 mls/hr CONT INF .Q40H [facility]; Protocol Last Titration: 01/19/20 10:00 Dose: 100 mcg/hr, 10 mls/hr Documented by: Sodium Chloride () 250 mls @ 15 mls/hr IV .[id number] PRN PRN Reason: Saline Flush Sodium Chloride () 250 mls @ 15 mls/hr IV .[id number] PRN PRN Reason: Additional IVPB Infusion Enteral Nutritional Formula (Vital Af 1.2 José Miguel Liquid) 1,000 mls @ 60 mls/hr GT .[id number] [facility] Ondansetron HCl (Ondansetron 4 Mg/2 Ml Vial) 4 mg IV Q8H PRN PRN PRN Reason: NAUSEA/VOMITING Sodium Chloride (0.9% Saline Lock 10 Ml Syringe) 10 - 40 ml IV UD PRN PRN Reason: SALINE FLUSH Last Admin: 01/19/20 05:11 Dose: 20 ml Documented by: Tacrolimus (Tacrolimus 0.5 Mg Capsule) 1 mg GT Q12 [facility] Last Admin: 01/19/20 10:12 Dose: 1 mg Documented by: Trimethoprim/Sulfamethoxazole (Smz/Tmp Ds Tablet) 0.5 tablet GT DAILY [facility] Last Admin: 01/19/20 10:12 Dose: 0.5 tablet Documented by: Assessment/Plan Active and Suspected Problems (Last Updated 09/02/18 @ 13:55 by Katheryn Mosqueda) Shortness of breath (Acute) COVID-19 virus infection (Acute) RECOMMENDATIONS: 1. Remdesivir per infectious disease 2. Monitor for 24 hours. Possible diuresis tomorrow 3. Agree with empiric antibiotics and dexamethasone 4. Treat empirically for possible PE unless develops bleeding complications 5. Wean oxygen as tolerated 6. Await nephrology recommendations IMPRESSIONS: 1. Acute hypoxic respiratory failure secondary to COVID-19 bilateral pneumonia Patient with significant bilateral infiltrates noted on chest x-ray. Patient reportedly is 2 to 3 weeks out from initial positive testing. Unclear if findings on x-ray are new or persisting from initial inflammation. Infectious diseases following. Agree with empiric antibiotics and meropenem. Patient's remdesivir will need to be dosed cautiously given renal function. Treat fever symptomatically. Discussed with family. Patient with a very guarded prognosis. Continue to wean oxygen and PEEP as tolerated. Patient does have risk factors for pulmonary embolism. Given inability to evaluate for PEs, reasonable to continue with empiric systemic anticoagulation. VQ scan is of poor sensitivity in patients with abnormal chest x-ray and renal function prohibits CTA. Previous echocardiogram is not suggestive of CHF as an etiology. 2. Chronic kidney disease stage III to stage IV status post transplant Patient was off of CellCept secondary to COVID-19 diagnosis. Nephrology has been consulted. Await recommendations. Patient does not have any indication for renal replacement therapy at this time. Unclear if Decadron is sufficient immunosuppression. 3. Hyperlipidemia/hypertension/elevated troponin/protracted hypoxia Complicates care, management, recovery and prognosis. Patient's blood pressure is marginal at this time, but adequate. We will need to monitor for rebound given discontinuation of Cardizem and clonidine. Nephrology has been consulted. Do anticipate an element of elevated troponin given systemic hypoxia. Patient does not have any findings on telemetry to suggest acute cardio intervention. Patient may require an echocardiogram for evaluation. May attempt empiric diuresis tomorrow if okay with nephrology. TIME: 40 minutes critical care time spent addressing patient's acute hypoxic respiratory failure, acute kidney injury, review of all data and collaboration with care team (7 AM to 8:30 AM) [phone]: [id number] Critical care first hour
[2020-01-19] MEDS: Vital AF 1.2 Cal Liquid 1,000 ML 20 ML GT (11:12)
[2020-01-19 13:00] LABS: Partial Thromboplast Time 72.7 Seconds (24.1-36.2)
[2020-01-19 14:19] LABS: Pathologist Review Reviewed
--- NOTE | 2020-01-19 16:03 | PCM.HP.ID ---
Problem List (1) COVID-19 virus infection Status: Acute Reason for Consult: covid Consulted by: Dr. Rosenthal History of Present Illness: The patient is a 54 year old M with renal transplant on cellcept, tacro, pred, bactrim, presented 01/17 with worsening dyspnea. Covid (+) 01/01, progressive sx. Sat was 45% on RA reportedly. Now intubated, on dex, hep gtt, remdesivir, meropenem. Pt awake, denies abd pain, some dyspnea. ROS unobtainable due to intubation - Medical History Past Medical History (Chronic Problems): Chronic Problems (Last Updated 09/02/18 @ 13:55 by Katheryn Mosqueda) Essential (primary) hypertension (Chronic) History of renal transplant (Chronic 2005) 2005 for congenital defect Right bundle branch block (Chronic) Hyperlipidemia (Chronic) Allergies/Adverse Reactions: Allergies No Known Allergies Allergy (Verified 01/09/20 18:40) Home Medications: Ambulatory Orders Medication Instructions Recorded Famotidine [Pepcid] 20 mg PO DAILY 11/19/12 aspirin 81 mg tablet,delayed 81 mg PO DAILY tab 04/11/17 release mycophenolate mofetil 250 mg 500 mg PO BID 04/16/17 capsule prednisone 5 mg tablet 7.5 mg PO QDAY 04/16/17 tacrolimus 0.5 mg capsule 0.5 mg PO .COMPLEX 04/16/17 clonidine HCl 0.3 mg tablet 0.3 mg PO TID tab 11/30/17 Lisinopril [Zestril] 10 mg PO DAILY 11/07/18 Atorvastatin Calcium [Lipitor] 10 mg PO QHS 11/13/18 Cholecalciferol (Vitamin D3) 2,000 unit PO DAILY 11/13/18 [Vitamin D3] Diltiazem HCl [Taztia Xt] 360 mg PO DAILY 11/13/18 Levofloxacin [Levaquin] 750 mg PO DAILY 01/18/20 Sulfamethoxazole/Trimethoprim 1 tab PO DAILY 01/18/20 [Sulfamethoxazole-Tmp Ss Tablet] - Social History SMOKING STATUS:: Former smoker Vital Signs Temp Pulse Resp BP Pulse Ox 98 F 90 21 H 111/69 95 01/19/20 14:00 01/19/20 15:23 01/19/20 15:23 01/19/20 15:00 01/19/20 15:23 Oxygen Delivery Method Mechanical Ventilator Weight: 77.8 kg Body Mass Index (BMI) 26.0 Microbiology Past 72 Hours 01/19/20 01:45 Gram Stain - Final Sputum, Induced/[place] Laboratory Tests Past 24 Hrs 01/18/20 01/18/20 01/18/20 16:25 16:25 16:25 WBC 21.4 H RBC 4.58 L Hgb 12.8 L Hct 39.7 L MCV 86.7 MCH 27.9 MCHC 32.2 RDW Std Deviation 40.5 RDW Coeff of Genaro 12.9 Plt Count 307 MPV 9.2 Immature Gran % (Auto) 4.000 H Neut % (Auto) 82.9 H Lymph % (Auto) 5.6 L [place]cl[place] % (Auto) 7.2 Eos % (Auto) 0.0 Baso % (Auto) 0.3 Absolute Neuts (auto) 17.8 H Absolute Lymphs (auto) 1.21 Nucleated RBC % 0.3 Differential Comment SCANNED Diff Path Review Reviewed PT INR APTT D-Dimer Quant (PE/DVT) Specimen Type Sample Site pH Bicarbonate Actual Total CO2 Base Excess O2 Saturation O2 % ABG pCO2 ABG pO2 Erlin Test O2 Delivery Device Sodium 134 L Potassium 4.4 Chloride 104 Carbon Dioxide 18.0 L Anion Gap 12 BUN 52 H Creatinine 2.79 H Estim Creat Clear Calc 29.28 Est GFR (MDRD) Af Amer 31 L Est GFR (MDRD) Non-Af 25 L BUN/Creatinine Ratio 18.6 Glucose 188 H Lactic Acid 2.3 H* Calcium 8.6 Total Bilirubin 0.40 AST 95 H ALT 70 H Alkaline Phosphatase 76 Troponin I 0.162 H Total Protein 7.3 Albumin 2.5 L Globulin 4.8 H Albumin/Globulin Ratio 0.5 L 01/18/20 01/18/20 01/18/20 16:45 18:40 20:45 WBC RBC Hgb Hct MCV MCH MCHC RDW Std Deviation RDW Coeff of Genaro Plt Count MPV Immature Gran % (Auto) Neut % (Auto) Lymph % (Auto) [place]clenn[place] % (Auto) Eos % (Auto) Baso % (Auto) Absolute Neuts (auto) Absolute Lymphs (auto) Nucleated RBC % Differential Comment Diff Path Review PT INR APTT D-Dimer Quant (PE/DVT) 4.26 H* Specimen Type ART Sample Site R Radial pH 7.35 Bicarbonate Actual 16.6 L Total CO2 18 Base Excess -9 L O2 Saturation 94 L O2 % 100 ABG pCO2 30.3 L ABG pO2 74 L Erlin Test Positive O2 Delivery Device BiPAP Sodium Potassium Chloride Carbon Dioxide Anion Gap BUN Creatinine Estim Creat Clear Calc Est GFR (MDRD) Af Amer Est GFR (MDRD) Non-Af BUN/Creatinine Ratio Glucose Lactic Acid 1.3 Calcium Total Bilirubin AST ALT Alkaline Phosphatase Troponin I Total Protein Albumin Globulin Albumin/Globulin Ratio 01/18/20 01/19/20 01/19/20 22:40 03:30 03:30 WBC 21.0 H RBC 3.94 L Hgb 11.5 L Hct 34.8 L MCV 88.3 MCH 29.2 MCHC 33.0 RDW Std Deviation 42.3 RDW Coeff of Genaro 13.1 Plt Count 278 MPV 10.5 Immature Gran % (Auto) 3.800 H Neut % (Auto) 88.4 H Lymph % (Auto) 4.0 L [place]clenn[place] % (Auto) 3.5 Eos % (Auto) 0.0 Baso % (Auto) 0.3 Absolute Neuts (auto) 18.5 H Absolute Lymphs (auto) 0.83 Nucleated RBC % 0.1 Differential Comment Diff Path Review PT 16.4 H INR 1.4 APTT 29.1 D-Dimer Quant (PE/DVT) Specimen Type Sample Site pH Bicarbonate Actual Total CO2 Base Excess O2 Saturation O2 % ABG pCO2 ABG pO2 Erlin Test O2 Delivery Device Sodium Cancelled Potassium Cancelled Chloride Cancelled Carbon Dioxide Cancelled Anion Gap Cancelled BUN Cancelled Creatinine Cancelled Estim Creat Clear Calc Cancelled Est GFR (MDRD) Af Amer Cancelled Est GFR (MDRD) Non-Af Cancelled BUN/Creatinine Ratio Cancelled Glucose Cancelled Lactic Acid Calcium Cancelled Total Bilirubin Cancelled AST Cancelled ALT Cancelled Alkaline Phosphatase Cancelled Troponin I Total Protein Cancelled Albumin Cancelled Globulin Cancelled Albumin/Globulin Ratio Cancelled 01/19/20 01/19/20 01/19/20 05:10 05:10 11:20 WBC RBC Hgb Hct MCV MCH MCHC RDW Std Deviation RDW Coeff of Genaro Plt Count MPV Immature Gran % (Auto) Neut % (Auto) Lymph % (Auto) [place]clenn[place] % (Auto) Eos % (Auto) Baso % (Auto) Absolute Neuts (auto) Absolute Lymphs (auto) Nucleated RBC % Differential Comment Diff Path Review PT INR APTT 242.1 H* 72.7 H D-Dimer Quant (PE/DVT) Specimen Type Sample Site pH Bicarbonate Actual Total CO2 Base Excess O2 Saturation O2 % ABG pCO2 ABG pO2 Erlin Test O2 Delivery Device Sodium 133 L Potassium 4.8 Chloride 103 Carbon Dioxide 18.0 L Anion Gap 12 BUN 61 H Creatinine 3.09 H Estim Creat Clear Calc 26.44 Est GFR (MDRD) Af Amer 27 L Est GFR (MDRD) Non-Af 23 L BUN/Creatinine Ratio 19.7 Glucose 188 H Lactic Acid Calcium 8.2 L Total Bilirubin 0.30 AST 64 H ALT 54 Alkaline Phosphatase 66 Troponin I Total Protein 6.3 L Albumin 2.0 L Globulin 4.3 H Albumin/Globulin Ratio 0.5 L - Other Studies Radiology: [] reviewed Other Studies: [] Route of nutrition/ use of supplements: [] Nutritional Intake: [] IV Site: [] Fernando Catheter: [] - Physical Exam General: Alert, Cooperative HEENT: Atraumatic, PERRLA, EOMI Neck: Supple, No Nodes Lungs: Diminished Cardiovascular: Regular rate, Regular Rhythm Abdomen: Soft, Non Tender, Non-Distended Extremities: No edema Skin: No rashes IV Site: Peripheral, without redness Musculoskeletal: No Tenderness to Palpation of Joints or Extremities Neurological: Cranial nerves II-XII grossly intact - Assessment/Plan Antibiotics: [] Assessment/Plan: [] Active and Suspected Problems (Last Updated 09/02/18 @ 13:55 by Katheryn Mosqueda) COVID-19 virus infection (Acute) Acute respiratory failure with hypoxia (Acute) covid with hypoxia, resp failure, renal transplant - on cheng empirically, on hep gtt, dex and remdesivir, spoke with admitting team last night. D-dimer was 4.2. Ordered monitoring labs while on remdesivir. Will follow, thank you, d/w Dr. Baird
[2020-01-19] MEDS: Vital AF 1.2 Cal Liquid 1,000 ML 40 ML GT (17:30)
[2020-01-19 18:19] LABS: Partial Thromboplast Time 54.4 Seconds (24.1-36.2)
[2020-01-19] MEDS: HEPARIN/D5w 25,000 UNITS 25,000 UNITS/250 ML IV.SOLN. 10 UNITS IV (23:00)
[2020-01-20] VITALS (40 sets, daily range): BP systolic 76–134; BP diastolic 46–79; PULSE 64–170; RESP 12–38; TEMP 36.8–37.8; O2SAT 82–100
[2020-01-20] MEDS: Ipratropium/Albuterol Sulfate 3 ML AMPUL.NEB INHALATION (01:05)
[2020-01-20 01:08] LABS: Partial Thromboplast Time 49.2 Seconds (24.1-36.2)
[2020-01-20] MEDS: Propofol 10MG/Ml 1,000 MG/100 ML Bottle 24.9 MG CONT INF (01:30)
--- NOTE | 2020-01-20 01:32 | EKG12_ITS ---
Test Reason : TACHYCARDIA Blood Pressure : / mmHG Vent. Rate : 158 BPM Atrial Rate : 150 BPM P-R Int : 000 ms QRS Dur : 132 ms QT Int : 342 ms P-R-T Axes : 000 008 -31 degrees QTc Int : 554 ms Atrial fibrillation Right bundle branch block Nonspecific ST/T wave abnormality Abnormal ECG Confirmed by EMPERATRIZ DAVILA, ELIZABETH ([id number]), magazine editor HENOK MAIN ([id number]) on 02/10/2020 1:16:54 PM Referred By: MEDINA Confirmed By:ELIZABETH AWAN MD
[2020-01-20] MEDS: Heparin Injection (Vial) 5,000 UNIT/ML VIAL IV ×2 (02:00→11:43)
[2020-01-20] MEDS: dilTIAZem 25 MG/5 ML Vial 6 MG IV BOLUS (02:23)
[2020-01-20 03:23] LABS: Hemoglobin 10.4 g/dL (13.0-16.5); Mean Corp Hgb Conc 31.5 g/dL (32-36); Mean Corpuscular Hgb 27.7 pg (27.0-32.0); Mean Platelet Vol. 9.6 fl (6.2-12.0); Platelet Count 284 K/mm3 (150-450); RBC Distribution Width CV 13.3 % (11.6-14.6); RBC Distribution Width SD 43.2 fl (35.1-43.9); Red Blood Count 3.75 M/mm3 (4.6-6.2); White Blood Count 19.3 K/mm3 (4.4-11.0)
[2020-01-20] MEDS: Vital AF 1.2 Cal Liquid 1,000 ML 60 ML GT ×2 (03:43→22:11)
[2020-01-20] MEDS: Propofol 10MG/Ml 1,000 MG/100 ML Bottle 19.9 MG CONT INF ×2 (04:00→08:34)
[2020-01-20 04:09] LABS: ALB/GLOB Ratio 0.5 RATIO (0.9-2.4); AST(SGOT) 76 U/L (15-37); Alanine Aminotransfer ALT/SGPT 64 U/L (16-61); Alkaline Phosphatase 71 U/L (45-117); Anion Gap 11 (5-15); BUN 81 mg/dL (7-18); BUN/Creat Ratio 22.9 RATIO (10-20); Calcium,Total 8.4 mg/dL (8.5-10.1); Chloride 104 mmol/L (98-107); Creatinine, Serum 3.54 mg/dL (0.70-1.30); EST Glomerular Filtration Rate 19 mL/min (>60); Est Glom Filt Rate - Afr Amer 23 mL/min (>60); Estimated Creatinine Clearance 23.08 ml/min; Globulin 4.4 g/dL (2.2-4.2); Glucose 237 mg/dL (74-106); Potassium 4.2 mmol/L (3.5-5.1); Protein, Total 6.4 g/dL (6.4-8.2); Sodium Level 134 mmol/L (136-145)
[2020-01-20] MEDS: Tacrolimus 0.5 MG Capsule 1 MG GT (09:14)
[2020-01-20] MEDS: Chlorhexidine 15 ML PO ×2 (09:14→22:11)
[2020-01-20] MEDS: Famotidine 20 MG Tablet GT (09:15)
[2020-01-20] MEDS: Aspirin 81 MG TAB.CHEW GT (09:15)
[2020-01-20] MEDS: Smz/Tmp Ds Tablet 0.5 TABLET GT (09:15)
[2020-01-20] MEDS: dexAMETHasone 10 MG/ML Vial 6 MG IV (09:15)
[2020-01-20 09:18] LABS: Partial Thromboplast Time 39.2 Seconds (24.1-36.2)
--- NOTE | 2020-01-20 10:14 | PCM.PROGNOTE ---
Patient Problems: Active and Suspected Problems (Last Updated 09/02/18 @ 13:55 by Katheryn Mosqueda) COVID-19 virus infection (Acute) Acute respiratory failure with hypoxia (Acute) Subjective: Chief complaint: Follow-up after admission for acute COVID-19 pneumonia and acute hypoxic respiratory failure, developed new onset atrial flutter with RVR. Patient seen and examined. Overnight, patient developed atrial flutter with RVR, started on IV Cardizem drip. Remains on mechanical ventilation, on sedation. FiO2 is down to 45%, still PEEP of 12. He has been afebrile, blood pressure is borderline, on mechanical ventilation. - Physical Exam Vitals/I&O's: Vital Signs Temp Pulse Resp BP Pulse Ox 98.6 F 103 H 26 H 78/58 L 92 01/20/20 06:00 01/20/20 08:16 01/20/20 08:16 01/20/20 08:16 01/20/20 08:16 Oxygen Flow Rate (L/min) 50 Oxygen Delivery Method Mechanical Ventilator Weight: 173 lb 11.588 oz Body Mass Index (BMI) 26.0 Intake and Output for Last 24 Hours 01/18/20 01/19/20 01/20/20 23:59 23:59 23:59 Intake Total 196.43 / 207.01 1868.65 / 1899.25 530.94 / 530.94 Output Total 450 / 450 850 / 850 350 / 350 Balance -253.57 / -242.99 1018.65 / 1049.25 180.94 / 180.94 General: - - Intubated, sedated. HEENT: Atraumatic, PERRLA, Normocephalic Oral: Moist Mucosa, No Gingival or Mucosal Lesions/ Ulcerations Neck: Supple, No JVD, Negative Carotid Bruits, Trachea Midline, Thyroid Normal Size and Texture Lungs: No wheeze, No rales, Diminished, Rhonchi Cardiovascular: Normal S1, Normal S2, No murmurs, PMI Normal, Irregular Rate, Tachycardic Abdomen: Bowel Sounds Present, Soft, Non Tender, Non-Distended, No Hepato-splenomegaly, Obese Extremities: No clubbing, No cyanosis, No edema Skin: No rashes, No breakdown Lymphatic: No Cervical, Supraclavicular, or Inguinal Adenopathy Neurological: Cranial nerves II-XII grossly intact, Neuro grossly intact Psych/Mental Status: - - Unable to assess, patient is sedated. Microbiology Past 72 Hours 01/19/20 01:45 Sputum, Induced/Lukens Gram Stain - Final Laboratory Results 01/18/20 16:25: Diff Path Review Reviewed 01/19/20 11:20: APTT 72.7 H 01/19/20 17:00: APTT 54.4 H 01/20/20 00:30: APTT 49.2 H 01/20/20 03:05: WBC 19.3 H, RBC 3.75 L, Hgb 10.4 L, Hct 33.0 L, MCV 88.0, MCH 27.7, MCHC 31.5 L, RDW Std Deviation 43.2, RDW Coeff of Genaro 13.3, Plt Count 284, MPV 9.6 01/20/20 03:05: Sodium 134 L, Potassium 4.2, Chloride 104, Carbon Dioxide 19.0 L, Anion Gap 11, BUN 81 H, Creatinine 3.54 H, Estim Creat Clear Calc 23.08, Est GFR (MDRD) Af Amer 23 L, Est GFR (MDRD) Non-Af 19 L, BUN/Creatinine Ratio 22.9 H, Glucose 237 H, Calcium 8.4 L, Total Bilirubin 0.20, AST 76 H, ALT 64 H, Alkaline Phosphatase 71, Total Protein 6.4, Albumin 2.0 L, Globulin 4.4 H, Albumin/Globulin Ratio 0.5 L 01/20/20 08:50: APTT 39.2 H 01/20/20 09:30: Tacrolimus Pending Current Medications Acetaminophen (Acetaminophen 325 Mg Tablet) 650 mg PO Q6H PRN PRN PRN Reason: Pain Score 1-10/Temp > 100.7 F Albuterol/Ipratropium (Ipratropium/Albuterol Sulfate 3 Ml Ampul.Neb) 3 ml INHALATION Q6H.RT [facility] Last Admin: 01/20/20 01:05 Dose: 3 ml Documented by: Aspirin (Aspirin 81 Mg Tab.Chew) 81 mg GT DAILY [facility] Last Admin: 01/20/20 09:15 Dose: 81 mg Documented by: Chlorhexidine Gluconate (Chlorhexidine 15 Ml) 15 ml PO BID [facility] Last Admin: 01/20/20 09:14 Dose: 15 ml Documented by: Dexamethasone Sodium Phosphate (Dexamethasone 10 Mg/Ml Vial) 6 mg IV DAILY [facility] Stop: 01/27/20 10:01 Last Admin: 01/20/20 09:15 Dose: 6 mg Documented by: Famotidine (Famotidine 20 Mg Tablet) 20 mg GT DAILY [facility] Last Admin: 01/20/20 09:15 Dose: 20 mg Documented by: Heparin Sodium (Porcine) (Heparin Injection (Vial) 5,000 Unit/Ml Vial) 0 unit IV UD PRN; Protocol PRN Reason: dose adjustment Last Admin: 01/20/20 02:00 Dose: 1,000 unit Documented by: Propofol (Diprivan) 1,000 mg in 100 mls @ 4.98 mls/hr CONT INF .Q12H [facility]; Protocol Last Admin: 01/20/20 08:34 Dose: 40 mcg/kg/min, 19.9 mls/hr Documented by: Meropenem 1 gm/ Sodium (Chloride) 120 mls @ 33 mls/hr IV Q12 [facility] Last Infusion: 01/20/20 00:44 Dose: Infused Documented by: Heparin Sodium/Dextrose () 25,000 units in 250 mls @ 11 mls/hr IV .[id number] [facility]; Protocol Last Titration: 01/20/20 06:00 Dose: 1,100 units/hr, 11 mls/hr Documented by: Fentanyl Citrate 1,000 mcg/ (Sodium Chloride) 100 mls @ 2.5 mls/hr CONT INF .Q40H [facility]; Protocol Last Admin: 01/20/20 07:20 Dose: 200 mcg/hr, 20 mls/hr Documented by: Sodium Chloride () 250 mls @ 15 mls/hr IV .[id number] PRN PRN Reason: Saline Flush Sodium Chloride () 250 mls @ 15 mls/hr IV .[id number] PRN PRN Reason: Additional IVPB Infusion Enteral Nutritional Formula (Vital Af 1.2 José Miguel Liquid) 1,000 mls @ 60 mls/hr GT .[id number] [facility] Last Admin: 01/20/20 03:43 Dose: 60 mls/hr Documented by: Diltiazem HCl 125 mg/ Dextrose 125 mls @ 5 mls/hr IV .Q25H [facility]; Protocol Last Admin: 01/20/20 08:16 Dose: 15 mg/hr, 15 mls/hr Documented by: Ondansetron HCl (Ondansetron 4 Mg/2 Ml Vial) 4 mg IV Q8H PRN PRN PRN Reason: NAUSEA/VOMITING Sodium Chloride (0.9% Saline Lock 10 Ml Syringe) 10 - 40 ml IV UD PRN PRN Reason: SALINE FLUSH Last Admin: 01/19/20 05:11 Dose: 20 ml Documented by: Tacrolimus (Tacrolimus 0.5 Mg Capsule) 1 mg GT Q12 KEARA Last Admin: 01/20/20 09:14 Dose: 1 mg Documented by: Trimethoprim/Sulfamethoxazole (Smz/Tmp Ds Tablet) 0.5 tablet GT DAILY [facility] Last Admin: 01/20/20 09:15 Dose: 0.5 tablet Documented by: Medical Necessity - Tobacco Use Smoking Status: Former smoker Tobacco Use: Non-smoker Assessment/Plan All Active Problems (Last Updated 09/02/18 @ 13:55 by Katheryn Mosqueda) COVID-19 virus infection (Acute) Acute respiratory failure with hypoxia (Acute) This is a 54 years old male patient presented to the emergency room because of shortness of breath, found to have COVID-19 pneumonia and his pulse ox dropped while patient was in the ED, needed to be intubated and started on mechanical ventilation. #1 acute bilateral COVID-19 pneumonia: Remained on IV dexamethasone and remdesivir as well as IV meropenem. Remained on mechanical ventilation with PEEP of 10 and FiO2 of 45 %, oxygen requirement has been decreasing. He is on sedation with IV fentanyl and propofol. He is afebrile, blood pressure is borderline, he is in atrial flutter with RVR. Sputum culture showed no growth. Blood cultures pending. Critical care and infectious disease On the case. Infectious disease recommended transfer patient to [facility] for worsening kidney function in the setting of renal transplant. #2 acute hypoxic respiratory failure: Secondary to #1. Currently, on mechanical ventilation, oxygen requirement has been decreasing, he is down to PEEP of 10 and FiO2 45%. Plan as above. #3 abnormal cardiac enzymes: Likely due to demand ischemia. EKG without acute segment changes. #4 acute kidney injury on top of stage III chronic kidney disease: In the setting of history of renal transplant. Kidney function has been worsening. Nephrology consulted and recommended to transfer patient to [facility]. I spoke with the mica washer gluer at [facility] and he stated that medical ICU is full with COVID-19 patient and he has no ventilator is to accept this patient. He suggested to talk to be transplant bus driver/monitor at the [facility] which I did. I spoke with the transplant bus driver/monitor Dr. Irwin who recommended to stop tacrolimus. Nephrology consult was changed to [facility] because patient saw Dr. Gregory in the past. I discussed the case with Dr. Walker and he will see the patient in consultation. He requested the name of the transplant bus driver/monitor which I given to him, . #5 new onset atrial flutter/fibrillation: Patient was started on Cardizem drip. Heart rate is down to around 100, blood pressure is borderline. Plan to continue same treatment, he may need to be started on amiodarone drip. #6 hypertension: Currently, blood pressure borderline to hypertensive. Antihypertensive medications held. May need to start patient on vasopressors. #7 hyperlipidemia: Statins held. #8 DVT prophylaxis: He is on IV heparin drip. This note was generated with [employer] dictation software. It may contain incorrect words, spelling, and punctuation that were not noted in checking the note before signing. Inpatient E&M: 23353 Subs Hosp L3
--- NOTE | 2020-01-20 11:03 | PCM.PN.ID ---
Patient Problems: Active and Suspected Problems (Last Updated 09/02/18 @ 13:55 by Katheryn Mosqueda) COVID-19 virus infection (Acute) Acute respiratory failure with hypoxia (Acute) Subjective: Remains on vent, O2 improved. Went into afib with rvr. - Physical Exam Vitals/I&O's: Vital Signs Temp Pulse Resp BP Pulse Ox 98.6 F 90 17 78/58 L 94 01/20/20 06:00 01/20/20 10:26 01/20/20 10:26 01/20/20 08:16 01/20/20 10:26 Oxygen Flow Rate (L/min) 50 Oxygen Delivery Method Mechanical Ventilator Weight: 78.8 kg Body Mass Index (BMI) 26.0 Intake and Output for Last 24 Hours 01/18/20 01/19/20 01/20/20 23:59 23:59 23:59 Intake Total 196.43 / 207.01 1868.65 / 1899.25 530.94 / 530.94 Output Total 450 / 450 850 / 850 350 / 350 Balance -253.57 / -242.99 1018.65 / 1049.25 180.94 / 180.94 General: Non-Cooperative Lungs: Diminished Cardiovascular: Irregular Rate Abdomen: Soft, Non Tender, Non-Distended Skin: No rashes Microbiology Past 72 Hours 01/19/20 01:45 Sputum, Induced/Lukens Gram Stain - Final 01/19/20 01:45 Sputum, Induced/Lukens Respiratory Culture - Preliminary Culture exhibits no growth. Laboratory Results 01/18/20 16:25: Diff Path Review Reviewed 01/19/20 11:20: APTT 72.7 H 01/19/20 17:00: APTT 54.4 H 01/20/20 00:30: APTT 49.2 H 01/20/20 03:05: WBC 19.3 H, RBC 3.75 L, Hgb 10.4 L, Hct 33.0 L, MCV 88.0, MCH 27.7, MCHC 31.5 L, RDW Std Deviation 43.2, RDW Coeff of Genaro 13.3, Plt Count 284, MPV 9.6 01/20/20 03:05: Sodium 134 L, Potassium 4.2, Chloride 104, Carbon Dioxide 19.0 L, Anion Gap 11, BUN 81 H, Creatinine 3.54 H, Estim Creat Clear Calc 23.08, Est GFR (MDRD) Af Amer 23 L, Est GFR (MDRD) Non-Af 19 L, BUN/Creatinine Ratio 22.9 H, Glucose 237 H, Calcium 8.4 L, Total Bilirubin 0.20, AST 76 H, ALT 64 H, Alkaline Phosphatase 71, Total Protein 6.4, Albumin 2.0 L, Globulin 4.4 H, Albumin/Globulin Ratio 0.5 L 01/20/20 08:50: APTT 39.2 H 01/20/20 09:30: Tacrolimus Pending Current Medications Acetaminophen (Acetaminophen 325 Mg Tablet) 650 mg PO Q6H PRN PRN PRN Reason: Pain Score 1-10/Temp > 100.7 F Albuterol/Ipratropium (Ipratropium/Albuterol Sulfate 3 Ml Ampul.Neb) 3 ml INHALATION Q6H.RT [facility] Last Admin: 01/20/20 01:05 Dose: 3 ml Documented by: Aspirin (Aspirin 81 Mg Tab.Chew) 81 mg GT DAILY [facility] Last Admin: 01/20/20 09:15 Dose: 81 mg Documented by: Chlorhexidine Gluconate (Chlorhexidine 15 Ml) 15 ml PO BID [facility] Last Admin: 01/20/20 09:14 Dose: 15 ml Documented by: Dexamethasone Sodium Phosphate (Dexamethasone 10 Mg/Ml Vial) 6 mg IV DAILY [facility] Stop: 01/27/20 10:01 Last Admin: 01/20/20 09:15 Dose: 6 mg Documented by: Famotidine (Famotidine 20 Mg Tablet) 20 mg GT DAILY [facility] Last Admin: 01/20/20 09:15 Dose: 20 mg Documented by: Heparin Sodium (Porcine) (Heparin Injection (Vial) 5,000 Unit/Ml Vial) 0 unit IV UD PRN; Protocol PRN Reason: dose adjustment Last Admin: 01/20/20 02:00 Dose: 1,000 unit Documented by: Propofol (Diprivan) 1,000 mg in 100 mls @ 4.98 mls/hr CONT INF .Q12H [facility]; Protocol Last Admin: 01/20/20 08:34 Dose: 40 mcg/kg/min, 19.9 mls/hr Documented by: Meropenem 1 gm/ Sodium (Chloride) 120 mls @ 33 mls/hr IV Q12 [facility] Last Infusion: 01/20/20 00:44 Dose: Infused Documented by: Heparin Sodium/Dextrose () 25,000 units in 250 mls @ 11 mls/hr IV .[id number] [facility]; Protocol Last Titration: 01/20/20 06:00 Dose: 1,100 units/hr, 11 mls/hr Documented by: Fentanyl Citrate 1,000 mcg/ (Sodium Chloride) 100 mls @ 2.5 mls/hr CONT INF .Q40H [facility]; Protocol Last Admin: 01/20/20 07:20 Dose: 200 mcg/hr, 20 mls/hr Documented by: Sodium Chloride () 250 mls @ 15 mls/hr IV .[id number] PRN PRN Reason: Saline Flush Sodium Chloride () 250 mls @ 15 mls/hr IV .[id number] PRN PRN Reason: Additional IVPB Infusion Enteral Nutritional Formula (Vital Af 1.2 José Miguel Liquid) 1,000 mls @ 60 mls/hr GT .[id number] [facility] Last Admin: 01/20/20 03:43 Dose: 60 mls/hr Documented by: Diltiazem HCl 125 mg/ Dextrose 125 mls @ 5 mls/hr IV .Q25H [facility]; Protocol Last Admin: 01/20/20 08:16 Dose: 15 mg/hr, 15 mls/hr Documented by: Ondansetron HCl (Ondansetron 4 Mg/2 Ml Vial) 4 mg IV Q8H PRN PRN PRN Reason: NAUSEA/VOMITING Senna/Docusate Sodium (Senna/Docusate Sodium 1 Tablet) 2 tablet PO BID [facility] Sodium Chloride (0.9% Saline Lock 10 Ml Syringe) 10 - 40 ml IV UD PRN PRN Reason: SALINE FLUSH Last Admin: 01/19/20 05:11 Dose: 20 ml Documented by: Tacrolimus (Tacrolimus 0.5 Mg Capsule) 1 mg GT Q12 [facility] Last Admin: 01/20/20 09:14 Dose: 1 mg Documented by: Trimethoprim/Sulfamethoxazole (Smz/Tmp Ds Tablet) 0.5 tablet GT DAILY [facility] Last Admin: 01/20/20 09:15 Dose: 0.5 tablet Documented by: Medical Necessity - Tobacco Use Smoking Status: Former smoker Tobacco Use: Non-smoker Route of nutrition/ use of supplements: [] Nutritional Intake: [] IV Site: [] Fernando Catheter: [] - Assessment/Plan Antibiotics: [] Assessment/Plan: [] Active and Suspected Problems (Last Updated 09/02/18 @ 13:55 by Katheryn Mosqueda) COVID-19 virus infection (Acute) Acute respiratory failure with hypoxia (Acute) covid with hypoxia, resp failure, renal transplant - on hep gtt, dex and remdesivir. D-dimer was 4.2. O2 improved but worsened TUCKER. Will order tacro level, consult neph, stop remdesivir, recommend transfer to . Sputum cx neg so far, will stop meropenem. No fevers here. Will follow, d/w Dr. Baird
[2020-01-20] MEDS: Propofol 10MG/Ml 1,000 MG/100 ML Bottle 17.4 MG CONT INF (11:31)
--- NOTE | 2020-01-20 11:50 | PN_ITS ---
Progress Note consulted for kidney transplant, TUCKER. Pt known to [facility]. Recommended transfer to tertiary center and switch consult to [facility]. Discussed with hospitalist. STROKE Vital Signs/Narrative: Vital Signs Pulse Resp BP Pulse Ox 01/20/20 10:26 90 17 94 01/20/20 08:16 103 H 26 H 78/58 L 92 01/20/20 07:53 73
--- NOTE | 2020-01-20 12:37 | EKG12_ITS ---
Test Reason : CONVERTED TO SR Blood Pressure : / mmHG Vent. Rate : 085 BPM Atrial Rate : 085 BPM P-R Int : 124 ms QRS Dur : 132 ms QT Int : 434 ms P-R-T Axes : 000 000 002 degrees QTc Int : 516 ms Normal sinus rhythm Right bundle branch block Abnormal ECG When compared with ECG of 20-JAN-2020 01:32, MANUAL COMPARISON REQUIRED, DATA IS UNCONFIRMED Confirmed by RA DAVILA, BLANCHE ([id number]), last cleaner NEAL WOMACK ([id number]) on 01/22/2020 11:25:05 AM Referred By: MAIRA Confirmed By:BLANCHE KNAPP MD
--- NOTE | 2020-01-20 13:14 | PN_ITS ---
Subjective: Patient did okay overnight. Oxygenation is slightly improved compared to yesterday, but patient did develop A. fib/flutter overnight with rapid sean tricular response. Patient was placed on a Cardizem drip. There was transient hypotension that was improved with change in sedation. Did discuss transfer to [facility] for transplant lens assistant evaluation. However, bed availability limits ability to transfer. Nephrology will be consulted to discuss with transplant lens assistant at . Objective: Patient continues to have difficulty with dyssynchrony through the morning. At approximately 1 PM, patient was transitioned to APRV. ABG is currently pending. General: Confused, Disoriented, Lethargic, - - RASS -3. Fair vent synchrony prior to transition to APRV HEENT: Atraumatic, PERRLA, EOMI, Normocephalic, - - Scleral injection without icterus Oral: Moist Mucosa, No Gingival or Mucosal Lesions/ Ulcerations Neck: Supple, No JVD, No Nodes, Trachea Midline Lungs: No rhonchi, No wheeze, No rales, Diminished, - - Symmetric expansion. Accessory muscle use noted. Cardiovascular: Normal S1, Normal S2, No murmurs, No rub noted, No Gallop, Tachycardic, - - Repeat EKG in the afternoon showed transition to sinus rhythm Abdomen: Bowel Sounds Present, Soft, Non Tender, Non-Distended, Obese Extremities: No clubbing, No cyanosis, Edema Skin: No rashes, No breakdown Musculoskeletal: No Tenderness to Palpation of Joints or Extremities Lymphatic: No Cervical, Supraclavicular, or Inguinal Adenopathy Neurological: Cranial nerves II-XII grossly intact, Neuro grossly intact Psych/Mental Status: Impulsive, Restless Vital Signs Temp Pulse Resp BP Pulse Ox 36.9 C 82 14 90/53 L 100 01/20/20 11:00 01/20/20 13:12 01/20/20 13:12 01/20/20 11:00 01/20/20 13:12 Oxygen Flow Rate (L/min) 50 Oxygen Delivery Method Mechanical Ventilator Weight: 78.8 kg Body Mass Index (BMI) 26.0 Intake and Output for Last 24 Hours 01/18/20 01/19/20 01/20/20 23:59 23:59 23:59 Intake Total 196.43 / 207.01 1868.65 / 1899.25 840.44 / 840.44 Output Total 450 / 450 850 / 850 350 / 350 Balance -253.57 / -242.99 1018.65 / 1049.25 490.44 / 490.44 Labs (Last 48 Hours) 01/18/20 01/18/20 01/18/20 16:25 16:25 16:25 WBC 21.4 H RBC 4.58 L Hgb 12.8 L Hct 39.7 L MCV 86.7 MCH 27.9 MCHC 32.2 RDW Std Deviation 40.5 RDW Coeff of Genaro 12.9 Plt Count 307 MPV 9.2 Immature Gran % (Auto) 4.000 H Neut % (Auto) 82.9 H Lymph % (Auto) 5.6 L Castro % (Auto) 7.2 Eos % (Auto) 0.0 Baso % (Auto) 0.3 Absolute Neuts (auto) 17.8 H Absolute Lymphs (auto) 1.21 Nucleated RBC % 0.3 Differential Comment SCANNED Diff Path Review Reviewed PT INR APTT D-Dimer Quant (PE/DVT) Specimen Type Sample Site pH Bicarbonate Actual Total CO2 Base Excess O2 Saturation O2 % ABG pCO2 ABG pO2 Erlin Test O2 Delivery Device Sodium 134 L Potassium 4.4 Chloride 104 Carbon Dioxide 18.0 L Anion Gap 12 BUN 52 H Creatinine 2.79 H Estim Creat Clear Calc 29.28 Est GFR (MDRD) Af Amer 31 L Est GFR (MDRD) Non-Af 25 L BUN/Creatinine Ratio 18.6 Glucose 188 H Lactic Acid 2.3 H* Calcium 8.6 Total Bilirubin 0.40 AST 95 H ALT 70 H Alkaline Phosphatase 76 Troponin I 0.162 H Total Protein 7.3 Albumin 2.5 L Globulin 4.8 H Albumin/Globulin Ratio 0.5 L Tacrolimus 01/18/20 01/18/20 01/18/20 16:45 18:40 20:45 WBC RBC Hgb Hct MCV MCH MCHC RDW Std Deviation RDW Coeff of Genaro Plt Count MPV Immature Gran % (Auto) Neut % (Auto) Lymph % (Auto) Castro % (Auto) Eos % (Auto) Baso % (Auto) Absolute Neuts (auto) Absolute Lymphs (auto) Nucleated RBC % Differential Comment Diff Path Review PT INR APTT D-Dimer Quant (PE/DVT) 4.26 H* Specimen Type ART Sample Site R Radial pH 7.35 Bicarbonate Actual 16.6 L Total CO2 18 Base Excess -9 L O2 Saturation 94 L O2 % 100 ABG pCO2 30.3 L ABG pO2 74 L Erlin Test Positive O2 Delivery Device BiPAP Sodium Potassium Chloride Carbon Dioxide Anion Gap BUN Creatinine Estim Creat Clear Calc Est GFR (MDRD) Af Amer Est GFR (MDRD) Non-Af BUN/Creatinine Ratio Glucose Lactic Acid 1.3 Calcium Total Bilirubin AST ALT Alkaline Phosphatase Troponin I Total Protein Albumin Globulin Albumin/Globulin Ratio Tacrolimus 01/18/20 01/19/20 01/19/20 22:40 03:30 03:30 WBC 21.0 H RBC 3.94 L Hgb 11.5 L Hct 34.8 L MCV 88.3 MCH 29.2 MCHC 33.0 RDW Std Deviation 42.3 RDW Coeff of Genaro 13.1 Plt Count 278 MPV 10.5 Immature Gran % (Auto) 3.800 H Neut % (Auto) 88.4 H Lymph % (Auto) 4.0 L Castro % (Auto) 3.5 Eos % (Auto) 0.0 Baso % (Auto) 0.3 Absolute Neuts (auto) 18.5 H Absolute Lymphs (auto) 0.83 Nucleated RBC % 0.1 Differential Comment Diff Path Review PT 16.4 H INR 1.4 APTT 29.1 D-Dimer Quant (PE/DVT) Specimen Type Sample Site pH Bicarbonate Actual Total CO2 Base Excess O2 Saturation O2 % ABG pCO2 ABG pO2 Erlin Test O2 Delivery Device Sodium Cancelled Potassium Cancelled Chloride Cancelled Carbon Dioxide Cancelled Anion Gap Cancelled BUN Cancelled Creatinine Cancelled Estim Creat Clear Calc Cancelled Est GFR (MDRD) Af Amer Cancelled Est GFR (MDRD) Non-Af Cancelled BUN/Creatinine Ratio Cancelled Glucose Cancelled Lactic Acid Calcium Cancelled Total Bilirubin Cancelled AST Cancelled ALT Cancelled Alkaline Phosphatase Cancelled Troponin I Total Protein Cancelled Albumin Cancelled Globulin Cancelled Albumin/Globulin Ratio Cancelled Tacrolimus 01/19/20 01/19/20 01/19/20 05:10 05:10 11:20 WBC RBC Hgb Hct MCV MCH MCHC RDW Std Deviation RDW Coeff of Genaro Plt Count MPV Immature Gran % (Auto) Neut % (Auto) Lymph % (Auto) Castro % (Auto) Eos % (Auto) Baso % (Auto) Absolute Neuts (auto) Absolute Lymphs (auto) Nucleated RBC % Differential Comment Diff Path Review PT INR APTT 242.1 H* 72.7 H D-Dimer Quant (PE/DVT) Specimen Type Sample Site pH Bicarbonate Actual Total CO2 Base Excess O2 Saturation O2 % ABG pCO2 ABG pO2 Erlin Test O2 Delivery Device Sodium 133 L Potassium 4.8 Chloride 103 Carbon Dioxide 18.0 L Anion Gap 12 BUN 61 H Creatinine 3.09 H Estim Creat Clear Calc 26.44 Est GFR (MDRD) Af Amer 27 L Est GFR (MDRD) Non-Af 23 L BUN/Creatinine Ratio 19.7 Glucose 188 H Lactic Acid Calcium 8.2 L Total Bilirubin 0.30 AST 64 H ALT 54 Alkaline Phosphatase 66 Troponin I Total Protein 6.3 L Albumin 2.0 L Globulin 4.3 H Albumin/Globulin Ratio 0.5 L Tacrolimus 01/19/20 01/20/20 01/20/20 17:00 00:30 03:05 WBC 19.3 H RBC 3.75 L Hgb 10.4 L Hct 33.0 L MCV 88.0 MCH 27.7 MCHC 31.5 L RDW Std Deviation 43.2 RDW Coeff of Genaro 13.3 Plt Count 284 MPV 9.6 Immature Gran % (Auto) Neut % (Auto) Lymph % (Auto) Castro % (Auto) Eos % (Auto) Baso % (Auto) Absolute Neuts (auto) Absolute Lymphs (auto) Nucleated RBC % Differential Comment Diff Path Review PT INR APTT 54.4 H 49.2 H D-Dimer Quant (PE/DVT) Specimen Type Sample Site pH Bicarbonate Actual Total CO2 Base Excess O2 Saturation O2 % ABG pCO2 ABG pO2 Erlin Test O2 Delivery Device Sodium Potassium Chloride Carbon Dioxide Anion Gap BUN Creatinine Estim Creat Clear Calc Est GFR (MDRD) Af Amer Est GFR (MDRD) Non-Af BUN/Creatinine Ratio Glucose Lactic Acid Calcium Total Bilirubin AST ALT Alkaline Phosphatase Troponin I Total Protein Albumin Globulin Albumin/Globulin Ratio Tacrolimus 01/20/20 01/20/20 01/20/20 03:05 08:50 09:30 WBC RBC Hgb Hct MCV MCH MCHC RDW Std Deviation RDW Coeff of Genaro Plt Count MPV Immature Gran % (Auto) Neut % (Auto) Lymph % (Auto) Castro % (Auto) Eos % (Auto) Baso % (Auto) Absolute Neuts (auto) Absolute Lymphs (auto) Nucleated RBC % Differential Comment Diff Path Review PT INR APTT 39.2 H D-Dimer Quant (PE/DVT) Specimen Type Sample Site pH Bicarbonate Actual Total CO2 Base Excess O2 Saturation O2 % ABG pCO2 ABG pO2 Erlin Test O2 Delivery Device Sodium 134 L Potassium 4.2 Chloride 104 Carbon Dioxide 19.0 L Anion Gap 11 BUN 81 H Creatinine 3.54 H Estim Creat Clear Calc 23.08 Est GFR (MDRD) Af Amer 23 L Est GFR (MDRD) Non-Af 19 L BUN/Creatinine Ratio 22.9 H Glucose 237 H Lactic Acid Calcium 8.4 L Total Bilirubin 0.20 AST 76 H ALT 64 H Alkaline Phosphatase 71 Troponin I Total Protein 6.4 Albumin 2.0 L Globulin 4.4 H Albumin/Globulin Ratio 0.5 L Tacrolimus Pending Microbiology 01/19/20 01:45 Sputum, Induced/Lukens Gram Stain - Final 01/19/20 01:45 Sputum, Induced/Lukens Respiratory Culture - Preliminary Culture exhibits no growth. Medical Necessity - Tobacco Use Smoking Status: Former smoker Tobacco Use: Non-smoker Assessment/Plan All Active Problems (Last Updated 09/02/18 @ 13:55 by Katheryn Mosqueda) COVID-19 virus infection (Acute) Acute respiratory failure with hypoxia (Acute) RECOMMENDATIONS: 1. Consult nephrology 2. Monitor for 24 hours. Possible diuresis if okay with nephrology 3. Agree with empiric antibiotics and dexamethasone 4. Treat empirically for possible PE unless develops bleeding complications 5. Wean oxygen as tolerated 6. Transition to APRV. ABG after an hour IMPRESSIONS: 1. Acute hypoxic respiratory failure secondary to COVID-19 bilateral pneumonia Patient with significant bilateral infiltrates noted on chest x-ray. Patient reportedly is 2 to 3 weeks out from initial positive testing. Unclear if findings on x-ray are new or persisting from initial inflammation. Infectious diseases following. Agree with empiric antibiotics and meropenem. Patient's remdesivir will need to be dosed cautiously given renal function. Treat fever symptomatically. Discussed with family. Patient with a very guarded prognosis. Given patient's poor synchrony with VC ventilation, patient was transitioned to APRV. ABG in an hour. 2. Chronic kidney disease stage III to stage IV status post transplant Patient was off of CellCept secondary to COVID-19 diagnosis. Nephrology has been consulted. Await recommendations. Patient does not have any indication for renal replacement therapy at this time, but renal function is worsening. Patient unable to be transferred to a tertiary center secondary to bed availability. Unclear if Decadron is sufficient immunosuppression. Some concern the patient may be having immunosuppression complications. 3. Hyperlipidemia/hypertension/elevated troponin/protracted hypoxia Complicates care, management, recovery and prognosis. Patient's blood pressure is marginal at this time, but adequate. We will need to monitor for rebound given discontinuation of Cardizem and clonidine. Nephrology has been consulted. Do anticipate an element of elevated troponin given systemic hypoxia. Patient does not have any findings on telemetry to suggest acute cardio intervention. Patient may require an echocardiogram for evaluation. May attempt empiric diuresis if okay with nephrology. TIME: 55 minutes critical care time spent addressing patient's acute hypoxic respiratory failure, acute kidney injury, review of all data and collaboration with care team (11 AM to 2 PM) [phone] [id number] Critical care first hour
[2020-01-20 14:46] LABS: Base Excess -10 mmol/L (-2 to +2); Bicarbonate 18.3 mmol/L (22-26); Blood Gas Specimen Type ART; FI02 85; Mode BiLevel; O2 Delivery Device Adult Vent; PO2 165 mmHG (75-100); RR 12; SITE R Radial; SO2 99 % (95-99); Total Carbon Dioxide 20 mmol/L; pCO2 50.2 mmHg (35-45); pH 7.17 (7.35-7.45)
[2020-01-20] MEDS: Senna/Docusate Sodium 1 Tablet 2 TABLET PO ×2 (15:57→22:11)
[2020-01-20] MEDS: Propofol 10MG/Ml 1,000 MG/100 ML Bottle 12.5 MG CONT INF (17:02)
--- NOTE | 2020-01-20 17:22 | PCM.CONS.R ---
Problem List (1) TUCKER (acute kidney injury) Status: Acute (2) History of renal transplant Status: Chronic Comment: 2005 for congenital defect Consultation - Renal 01/20/20 PCP/ Referring MD: Requesting physician: [] Primary care physician: Dr. Jesus Collins MD Reason for Consultation:: tucker - History of Present Illness History of Present Illness: The patient is a 54 year old M who is admitted to the hospital with respiratory failure. Nephrology consulted for acute renal failure. He has known history of kidney transplant from 2004. Follows with [facility] kidney transplant team. Baseline creatinine is around 1.9. For immunosuppression he is on tacrolimus, CellCept, prednisone. On 01 January he was diagnosed with Covid. Since he did not have any hypoxia he was discharged home. Apparently he decompensated after going home and came back on 01/17 with hypoxic respiratory failure. Intubated yesterday. Currently on ventilator, FiO2 50, PEEP 12. Transient hypotension early this morning. Now better. No pressors. Transient atrial fibrillation converted with Cardizem drip Urine output has declined significantly today. BUN and creatinine are worse. Also has significant acidosis. Review of systems cannot be obtained as he is intubated - Allergies Allergies: Allergies No Known Allergies Allergy (Verified 01/09/20 18:40) - Current Medications Current Medications: Current Medications Acetaminophen (Acetaminophen 325 Mg Tablet) 650 mg PO Q6H PRN PRN PRN Reason: Pain Score 1-10/Temp > 100.7 F Albuterol/Ipratropium (Ipratropium/Albuterol Sulfate 3 Ml Ampul.Neb) 3 ml INHALATION Q6H.RT [facility] Last Admin: 01/20/20 01:05 Dose: 3 ml Documented by: Aspirin (Aspirin 81 Mg Tab.Chew) 81 mg GT DAILY [facility] Last Admin: 01/20/20 09:15 Dose: 81 mg Documented by: Chlorhexidine Gluconate (Chlorhexidine 15 Ml) 15 ml PO BID [facility] Last Admin: 01/20/20 09:14 Dose: 15 ml Documented by: Dexamethasone Sodium Phosphate (Dexamethasone 10 Mg/Ml Vial) 6 mg IV DAILY [facility] Stop: 01/27/20 10:01 Last Admin: 01/20/20 09:15 Dose: 6 mg Documented by: Famotidine (Famotidine 20 Mg Tablet) 20 mg GT DAILY [facility] Last Admin: 01/20/20 09:15 Dose: 20 mg Documented by: Furosemide (Furosemide 100 Mg/10 Ml Vial) 60 mg IV X1 ONE Stop: 01/20/20 17:22 Heparin Sodium (Porcine) (Heparin Injection (Vial) 5,000 Unit/Ml Vial) 0 unit IV UD PRN; Protocol PRN Reason: dose adjustment Last Admin: 01/20/20 11:43 Dose: 3,000 unit Documented by: Propofol (Diprivan) 1,000 mg in 100 mls @ 4.98 mls/hr CONT INF .Q12H [facility]; Protocol Last Titration: 01/20/20 17:04 Dose: 25 mcg/kg/min, 12.5 mls/hr Documented by: Heparin Sodium/Dextrose () 25,000 units in 250 mls @ 11 mls/hr IV .[id number] [facility]ARA; Protocol Last Titration: 01/20/20 11:39 Dose: 1,300 units/hr, 13 mls/hr Documented by: Fentanyl Citrate 1,000 mcg/ (Sodium Chloride) 100 mls @ 2.5 mls/hr CONT INF .Q40H KEARA; Protocol Last Titration: 01/20/20 17:04 Dose: 150 mcg/hr, 15 mls/hr Documented by: Sodium Chloride () 250 mls @ 15 mls/hr IV .[id number] PRN PRN Reason: Saline Flush Sodium Chloride () 250 mls @ 15 mls/hr IV .[id number] PRN PRN Reason: Additional IVPB Infusion Enteral Nutritional Formula (Vital Af 1.2 José Miguel Liquid) 1,000 mls @ 60 mls/hr GT .[id number] [facility] Last Admin: 01/20/20 03:43 Dose: 60 mls/hr Documented by: Diltiazem HCl 125 mg/ Dextrose 125 mls @ 5 mls/hr IV .Q25H KEARA; Protocol Last Titration: 01/20/20 17:04 Dose: 15 mg/hr, 15 mls/hr Documented by: Ondansetron HCl (Ondansetron 4 Mg/2 Ml Vial) 4 mg IV Q8H PRN PRN PRN Reason: NAUSEA/VOMITING Senna/Docusate Sodium (Senna/Docusate Sodium 1 Tablet) 2 tablet PO BID [facility] Last Admin: 01/20/20 15:57 Dose: 2 tablet Documented by: Sodium Chloride (0.9% Saline Lock 10 Ml Syringe) 10 - 40 ml IV UD PRN PRN Reason: SALINE FLUSH Last Admin: 01/19/20 05:11 Dose: 20 ml Documented by: - Past Medical History Past Medical History (Chronic Problems): Chronic Problems (Last Updated 09/02/18 @ 13:55 by Katheryn Mosqueda) Essential (primary) hypertension (Chronic) History of renal transplant (Chronic 2005) 2006 for congenital defect Right bundle branch block (Chronic) Hyperlipidemia (Chronic) - Past Surgical History Surgical History: - - renal x-plant, fistula, bilateral shoulder surgery - Social History Smoking Status: Former smoker Alcohol: None Drugs: None - Family History Maternal Family History: Family History (Last Reviewed 06/01/17 @ 09:[address] Mundo Balderrama MD) Mother History of kidney disease History Items: No pertinent history Paternal Family History: Family History (Last Reviewed 06/01/17 @ 09:[address] Mundo Balderrama MD) Mother History of kidney disease History Items: No pertinent history Patient Problems: Active and Suspected Problems (Last Updated 09/02/18 @ 13:55 by Katheryn Mosqueda) COVID-19 virus infection (Acute) Acute respiratory failure with hypoxia (Acute) - Physical Exam Vitals/I&O's: Vital Signs Temp Pulse Resp BP Pulse Ox 98.5 F 86 31 H 105/65 96 01/20/20 17:04 01/20/20 17:09 01/20/20 17:09 01/20/20 17:04 01/20/20 17:09 Oxygen Flow Rate (L/min) 50 Oxygen Delivery Method Mechanical Ventilator Weight: 78.8 kg Body Mass Index (BMI) 26.0 Intake and Output for Last 24 Hours 01/18/20 01/19/20 01/20/20 23:59 23:59 23:59 Intake Total 196.43 / 207.01 1868.65 / 1899.25 1234.36 / 1234.36 Output Total 450 / 450 850 / 850 500 / 500 Balance -253.57 / -242.99 1018.65 / 1049.25 734.36 / 734.36 Abdomen: Non-Distended Extremities: No edema Skin: No rashes Comment: Exam limited due to Covid status. Intubated orally, Fernando catheter in plac Microbiology Past 72 Hours 01/19/20 01:45 Sputum, Induced/Lukens Gram Stain - Final 01/19/20 01:45 Sputum, Induced/Lukens Respiratory Culture - Preliminary Culture exhibits no growth. Laboratory Results 01/19/20 17:00: APTT 54.4 H 01/20/20 00:30: APTT 49.2 H 01/20/20 03:05: WBC 19.3 H, RBC 3.75 L, Hgb 10.4 L, Hct 33.0 L, MCV 88.0, MCH 27.7, MCHC 31.5 L, RDW Std Deviation 43.2, RDW Coeff of Genaro 13.3, Plt Count 284, MPV 9.6 01/20/20 03:05: Sodium 134 L, Potassium 4.2, Chloride 104, Carbon Dioxide 19.0 L, Anion Gap 11, BUN 81 H, Creatinine 3.54 H, Estim Creat Clear Calc 23.08, Est GFR (MDRD) Af Amer 23 L, Est GFR (MDRD) Non-Af 19 L, BUN/Creatinine Ratio 22.9 H, Glucose 237 H, Calcium 8.4 L, Total Bilirubin 0.20, AST 76 H, ALT 64 H, Alkaline Phosphatase 71, Total Protein 6.4, Albumin 2.0 L, Globulin 4.4 H, Albumin/Globulin Ratio 0.5 L 01/20/20 08:50: APTT 39.2 H 01/20/20 09:30: Tacrolimus Pending 01/20/20 14:37: Specimen Type ART, Sample Site R Radial, pH 7.17 L*, Bicarbonate Actual 18.3 L, Total CO2 20, Base Excess -10 L, O2 Saturation 99, O2 % 85, ABG pCO2 50.2 H, ABG pO2 165 H, Respiration Rate 12, O2 Delivery Device Adult Vent, Vent Mode BiLevel Current Medications Acetaminophen (Acetaminophen 325 Mg Tablet) 650 mg PO Q6H PRN PRN PRN Reason: Pain Score 1-10/Temp > 100.7 F Albuterol/Ipratropium (Ipratropium/Albuterol Sulfate 3 Ml Ampul.Neb) 3 ml INHALATION Q6H.RT [facility] Last Admin: 01/20/20 01:05 Dose: 3 ml Documented by: Aspirin (Aspirin 81 Mg Tab.Chew) 81 mg GT DAILY [facility] Last Admin: 01/20/20 09:15 Dose: 81 mg Documented by: Chlorhexidine Gluconate (Chlorhexidine 15 Ml) 15 ml PO BID [facility] Last Admin: 01/20/20 09:14 Dose: 15 ml Documented by: Dexamethasone Sodium Phosphate (Dexamethasone 10 Mg/Ml Vial) 6 mg IV DAILY [facility] Stop: 01/27/20 10:01 Last Admin: 01/20/20 09:15 Dose: 6 mg Documented by: Famotidine (Famotidine 20 Mg Tablet) 20 mg GT DAILY [facility] Last Admin: 01/20/20 09:15 Dose: 20 mg Documented by: Furosemide (Furosemide 100 Mg/10 Ml Vial) 60 mg IV X1 ONE Stop: 01/20/20 17:22 Heparin Sodium (Porcine) (Heparin Injection (Vial) 5,000 Unit/Ml Vial) 0 unit IV UD PRN; Protocol PRN Reason: dose adjustment Last Admin: 01/20/20 11:43 Dose: 3,000 unit Documented by: Propofol (Diprivan) 1,000 mg in 100 mls @ 4.98 mls/hr CONT INF .Q12H [facility]; Protocol Last Titration: 01/20/20 17:04 Dose: 25 mcg/kg/min, 12.5 mls/hr Documented by: Heparin Sodium/Dextrose () 25,000 units in 250 mls @ 11 mls/hr IV .[id number] [facility]; Protocol Last Titration: 01/20/20 11:39 Dose: 1,300 units/hr, 13 mls/hr Documented by: Fentanyl Citrate 1,000 mcg/ (Sodium Chloride) 100 mls @ 2.5 mls/hr CONT INF .Q40H [facility]; Protocol Last Titration: 01/20/20 17:04 Dose: 150 mcg/hr, 15 mls/hr Documented by: Sodium Chloride () 250 mls @ 15 mls/hr IV .[id number] PRN PRN Reason: Saline Flush Sodium Chloride () 250 mls @ 15 mls/hr IV .[id number] PRN PRN Reason: Additional IVPB Infusion Enteral Nutritional Formula (Vital Af 1.2 José Miguel Liquid) 1,000 mls @ 60 mls/hr GT .[id number] [facility] Last Admin: 01/20/20 03:43 Dose: 60 mls/hr Documented by: Diltiazem HCl 125 mg/ Dextrose 125 mls @ 5 mls/hr IV .Q25H [facility]; Protocol Last Titration: 01/20/20 17:04 Dose: 15 mg/hr, 15 mls/hr Documented by: Ondansetron HCl (Ondansetron 4 Mg/2 Ml Vial) 4 mg IV Q8H PRN PRN PRN Reason: NAUSEA/VOMITING Senna/Docusate Sodium (Senna/Docusate Sodium 1 Tablet) 2 tablet PO BID [facility] Last Admin: 01/20/20 15:57 Dose: 2 tablet Documented by: Sodium Chloride (0.9% Saline Lock 10 Ml Syringe) 10 - 40 ml IV UD PRN PRN Reason: SALINE FLUSH Last Admin: 01/19/20 05:11 Dose: 20 ml Documented by: Assessment/Plan All Active Problems (Last Updated 09/02/18 @ 13:55 by Katheryn Mosqueda) TUCKER (acute kidney injury) (Acute) COVID-19 virus infection (Acute) Acute respiratory failure with hypoxia (Acute) Acute renal failure cKd stage III History of kidney transplant 15 years ago Covid pneumonia Sustained acute renal failure in hospital. White count is high. Being empirically covered for secondary bacterial infection. D-dimer was high. On heparin drip empirically. Blood pressure is acceptable. He was told to hold CellCept at the time of ER visit and hence has not been on antimetabolite for almost 10 days now. He was taking tacrolimus up until today morning. Tacrolimus levels have been sent. Currently on Decadron 6 mg orally once a day which should cover as immunosuppression for now. Most likely acute renal failure is ATN related to sepsis with a differential of tacrolimus toxicity. Continue to hold tacrolimus and continue Decadron for now. Follow on tacrolimus levels Since he is anuric we will try a dose of Lasix I did call his parents and explained current situation, possibility of dialysis if renal function worsens. They are agreeable Called his transplant supervisor intermediates at [facility] Dr Irwin. Agreeable with above plan discussed with Dr Baird
[2020-01-20 17:45] LABS: Allen Test Positive; Base Excess -11 mmol/L (-2 to +2); Bicarbonate 16.3 mmol/L (22-26); Blood Gas Specimen Type ART; FI02 55; Mode BiLevel; O2 Delivery Device Adult Vent; PO2 79 mmHG (75-100); SITE R Radial; SO2 94 % (95-99); Total Carbon Dioxide 17 mmol/L; pCO2 36.5 mmHg (35-45); pH 7.26 (7.35-7.45)
[2020-01-20] MEDS: Furosemide 100 MG/10 ML Vial 60 MG IV (17:58)
[2020-01-20 18:05] LABS: Partial Thromboplast Time 126.6 Seconds (24.1-36.2)
[2020-01-20] MEDS: HEPARIN/D5w 25,000 UNITS 25,000 UNITS/250 ML IV.SOLN. 10 UNITS IV (21:00)
[2020-01-20] MEDS: Propofol 10MG/Ml 1,000 MG/100 ML Bottle 14.9 MG CONT INF (22:11)
[2020-01-21] VITALS (37 sets, daily range): BP systolic 94–137; BP diastolic 51–83; PULSE 55–109; RESP 2–35; TEMP 37.2–37.9; O2SAT 89–96
[2020-01-21] MEDS: Propofol 10MG/Ml 1,000 MG/100 ML Bottle 14.9 MG CONT INF ×2 (01:54→22:30)
[2020-01-21 03:29] LABS: Hematocrit 32.4 % (40-54); Hemoglobin 10.5 g/dL (13.0-16.5); Mean Corp Hgb Conc 32.4 g/dL (32-36); Mean Corpuscular Hgb 29.2 pg (27.0-32.0); Mean Platelet Vol. 9.8 fl (6.2-12.0); Platelet Count 323 K/mm3 (150-450); RBC Distribution Width CV 13.6 % (11.6-14.6); RBC Distribution Width SD 45.2 fl (35.1-43.9); White Blood Count 23.9 K/mm3 (4.4-11.0)
[2020-01-21] MEDS: Vital AF 1.2 Cal Liquid 1,000 ML 60 ML GT (03:30)
[2020-01-21 03:39] LABS: Partial Thromboplast Time 39.1 Seconds (24.1-36.2)
[2020-01-21 03:49] LABS: ALB/GLOB Ratio 0.5 RATIO (0.9-2.4); AST(SGOT) 39 U/L (15-37); Alanine Aminotransfer ALT/SGPT 51 U/L (16-61); Albumin, Serum 2.1 g/dL (3.2-5.0); Alkaline Phosphatase 75 U/L (45-117); Anion Gap 13 (5-15); BUN 112 mg/dL (7-18); BUN/Creat Ratio 23.8 RATIO (10-20); Calcium,Total 7.9 mg/dL (8.5-10.1); Chloride 100 mmol/L (98-107); Creatinine, Serum 4.71 mg/dL (0.70-1.30); EST Glomerular Filtration Rate 14 mL/min (>60); Est Glom Filt Rate - Afr Amer 17 mL/min (>60); Estimated Creatinine Clearance 17.35 ml/min; Globulin 4.2 g/dL (2.2-4.2); Glucose 333 mg/dL (74-106); Potassium 4.5 mmol/L (3.5-5.1); Protein, Total 6.3 g/dL (6.4-8.2); Sodium Level 131 mmol/L (136-145)
[2020-01-21 06:06] LABS: Allen Test Positive; Base Excess -10 mmol/L (-2 to +2); Bicarbonate 17.1 mmol/L (22-26); Blood Gas Specimen Type ART; FI02 45; Mode BiLevel; O2 Delivery Device Adult Vent; PEEP 22; PO2 73 mmHG (75-100); RR 15; SITE R Radial; SO2 93 % (95-99); Total Carbon Dioxide 18 mmol/L; pCO2 36.5 mmHg (35-45); pH 7.28 (7.35-7.45)
[2020-01-21] MEDS: Heparin Injection (Vial) 5,000 UNIT/ML VIAL IV (06:20)
--- NOTE | 2020-01-21 07:28 | PN_ITS ---
Subjective: Patient did okay overnight. Patient has tolerated APRV well and is more alert at this time. Patient is still requiring significant sedation. Patient is not reporting any pain or dyspnea. Patient tolerating tube feeds. General: Alert, Cooperative, No apparent distress, - - Still with some abdominal muscle breathing HEENT: Atraumatic, PERRLA, EOMI, Normocephalic, - - Scleral injection without icterus Oral: Moist Mucosa, No Gingival or Mucosal Lesions/ Ulcerations Neck: Supple, No JVD, No Nodes, Trachea Midline Lungs: No rhonchi, No wheeze, Diminished, Rales, - - Right base Cardiovascular: Normal S1, Normal S2, No murmurs, Irregular Rate Abdomen: Bowel Sounds Present, Soft, Non Tender, Non-Distended Extremities: No clubbing, No cyanosis, Edema, - - Left arm fistula Skin: No rashes, No breakdown Musculoskeletal: No Tenderness to Palpation of Joints or Extremities Lymphatic: No Cervical, Supraclavicular, or Inguinal Adenopathy Neurological: Cranial nerves II-XII grossly intact, Neuro grossly intact Psych/Mental Status: Normal Affect, Appropriate Vital Signs Temp Pulse Resp BP Pulse Ox 37.4 C H 92 20 H 125/71 H 91 01/21/20 05:00 01/21/20 07:01 01/21/20 07:01 01/21/20 06:00 01/21/20 07:01 Oxygen Flow Rate (L/min) 50 Oxygen Delivery Method Mechanical Ventilator Weight: 78.7 kg Body Mass Index (BMI) 26.0 Intake and Output for Last 24 Hours 01/19/20 01/20/20 01/21/20 23:59 23:59 23:59 Intake Total 1868.65 / 1899.25 1637.14 / 1669.54 1343.26 / 1343.26 Output Total 850 / 850 525 / 725 725 / 725 Balance 1018.65 / 1049.25 1112.14 / 944.54 618.26 / 618.26 Labs (Last 48 Hours) 01/18/20 01/19/20 01/19/20 16:25 11:20 17:00 WBC RBC Hgb Hct MCV MCH MCHC RDW Std Deviation RDW Coeff of Genaro Plt Count MPV Diff Path Review Reviewed APTT 72.7 H 54.4 H Specimen Type Sample Site pH Bicarbonate Actual Total CO2 Base Excess O2 Saturation O2 % ABG pCO2 ABG pO2 Erlin Test Respiration Rate O2 Delivery Device Vent Mode POC PEEP Sodium Potassium Chloride Carbon Dioxide Anion Gap BUN Creatinine Estim Creat Clear Calc Est GFR (MDRD) Af Amer Est GFR (MDRD) Non-Af BUN/Creatinine Ratio Glucose Calcium Total Bilirubin AST ALT Alkaline Phosphatase Total Protein Albumin Globulin Albumin/Globulin Ratio Tacrolimus 01/20/20 01/20/20 01/20/20 00:30 03:05 03:05 WBC 19.3 H RBC 3.75 L Hgb 10.4 L Hct 33.0 L MCV 88.0 MCH 27.7 MCHC 31.5 L RDW Std Deviation 43.2 RDW Coeff of Genaro 13.3 Plt Count 284 MPV 9.6 Diff Path Review APTT 49.2 H Specimen Type Sample Site pH Bicarbonate Actual Total CO2 Base Excess O2 Saturation O2 % ABG pCO2 ABG pO2 Erlin Test Respiration Rate O2 Delivery Device Vent Mode POC PEEP Sodium 134 L Potassium 4.2 Chloride 104 Carbon Dioxide 19.0 L Anion Gap 11 BUN 81 H Creatinine 3.54 H Estim Creat Clear Calc 23.08 Est GFR (MDRD) Af Amer 23 L Est GFR (MDRD) Non-Af 19 L BUN/Creatinine Ratio 22.9 H Glucose 237 H Calcium 8.4 L Total Bilirubin 0.20 AST 76 H ALT 64 H Alkaline Phosphatase 71 Total Protein 6.4 Albumin 2.0 L Globulin 4.4 H Albumin/Globulin Ratio 0.5 L Tacrolimus 01/20/20 01/20/20 01/20/20 08:50 09:30 14:37 WBC RBC Hgb Hct MCV MCH MCHC RDW Std Deviation RDW Coeff of Genaro Plt Count MPV Diff Path Review APTT 39.2 H Specimen Type ART Sample Site R Radial pH 7.17 L* Bicarbonate Actual 18.3 L Total CO2 20 Base Excess -10 L O2 Saturation 99 O2 % 85 ABG pCO2 50.2 H ABG pO2 165 H Erlin Test Respiration Rate 12 O2 Delivery Device Adult Vent Vent Mode BiLevel POC PEEP Sodium Potassium Chloride Carbon Dioxide Anion Gap BUN Creatinine Estim Creat Clear Calc Est GFR (MDRD) Af Amer Est GFR (MDRD) Non-Af BUN/Creatinine Ratio Glucose Calcium Total Bilirubin AST ALT Alkaline Phosphatase Total Protein Albumin Globulin Albumin/Globulin Ratio Tacrolimus Pending 01/20/20 01/20/20 01/21/20 17:00 17:39 03:05 WBC 23.9 H RBC 3.60 L Hgb 10.5 L Hct 32.4 L MCV 90.0 MCH 29.2 MCHC 32.4 RDW Std Deviation 45.2 H RDW Coeff of Genaro 13.6 Plt Count 323 MPV 9.8 Diff Path Review APTT 126.6 H* Specimen Type ART Sample Site R Radial pH 7.26 L Bicarbonate Actual 16.3 L Total CO2 17 Base Excess -11 L O2 Saturation 94 L O2 % 55 ABG pCO2 36.5 ABG pO2 79 Erlin Test Positive Respiration Rate O2 Delivery Device Adult Vent Vent Mode BiLevel POC PEEP Sodium Potassium Chloride Carbon Dioxide Anion Gap BUN Creatinine Estim Creat Clear Calc Est GFR (MDRD) Af Amer Est GFR (MDRD) Non-Af BUN/Creatinine Ratio Glucose Calcium Total Bilirubin AST ALT Alkaline Phosphatase Total Protein Albumin Globulin Albumin/Globulin Ratio Tacrolimus 01/21/20 01/21/20 01/21/20 03:05 03:05 05:55 WBC RBC Hgb Hct MCV MCH MCHC RDW Std Deviation RDW Coeff of Genaro Plt Count MPV Diff Path Review APTT 39.1 H Specimen Type ART Sample Site R Radial pH 7.28 L Bicarbonate Actual 17.1 L Total CO2 18 Base Excess -10 L O2 Saturation 93 L O2 % 45 ABG pCO2 36.5 ABG pO2 73 L Erlin Test Positive Respiration Rate 15 O2 Delivery Device Adult Vent Vent Mode BiLevel POC PEEP 22 Sodium 131 L Potassium 4.5 Chloride 100 Carbon Dioxide 18.0 L Anion Gap 13 BUN 112 H* Creatinine 4.71 H Estim Creat Clear Calc 17.35 Est GFR (MDRD) Af Amer 17 L Est GFR (MDRD) Non-Af 14 L BUN/Creatinine Ratio 23.8 H Glucose 333 H Calcium 7.9 L Total Bilirubin 0.30 AST 39 H ALT 51 Alkaline Phosphatase 75 Total Protein 6.3 L Albumin 2.1 L Globulin 4.2 Albumin/Globulin Ratio 0.5 L Tacrolimus Microbiology 01/18/20 16:36 Blood Culture (Wb) - Left Forearm Blood Culture - Preliminary No growth in 48 hours. 01/18/20 16:25 Blood Culture (Wb) - Anticubital Left Blood Culture - Preliminary No growth in 48 hours. 01/19/20 01:45 Sputum, Induced/Lukens Gram Stain - Final 01/19/20 01:45 Sputum, Induced/Lukens Respiratory Culture - Preliminary Culture exhibits no growth. Medical Necessity - Tobacco Use Smoking Status: Former smoker Tobacco Use: Non-smoker Assessment/Plan All Active Problems (Last Updated 09/02/18 @ 13:55 by Katheryn Mosqueda) TUCKER (acute kidney injury) (Acute) COVID-19 virus infection (Acute) Acute respiratory failure with hypoxia (Acute) RECOMMENDATIONS: 1. Defer to nephrology on possible hemodialysis 2. Likely benefit from volume removal 3. Agree with empiric antibiotics and dexamethasone 4. Treat empirically for possible PE unless develops bleeding complications 5. Wean oxygen as tolerated 6. Continue APRV. Increase T high. IMPRESSIONS: 1. Acute hypoxic respiratory failure secondary to COVID-19 bilateral pneumonia Patient with significant bilateral infiltrates noted on chest x-ray. Patient reportedly is 2 to 3 weeks out from initial positive testing. Unclear if findings on x-ray are new or persisting from initial inflammation. Infectious diseases following. Agree with empiric antibiotics and meropenem. Patient has tolerated transition to APRV. Patient appears to have better sy nchrony understanding and volume control. ABG shows some permissive acidemia with good control of ventilation. Clinical suspicion for acidemia secondary to renal function. 2. Chronic kidney disease stage III to stage IV status post transplant Patient was off of CellCept secondary to COVID-19 diagnosis. Nephrology has been consulted. Await recommendations. Patient does not have any indication for renal replacement therapy at this time, but renal function is worsening. Patient unable to be transferred to a tertiary center secondary to bed availability. Unclear if Decadron is sufficient immunosuppression. Nephrology is reporting patient may require dialysis. Unclear if patient can be used for fistula or if temporary dialysis catheter needs to be placed. Patient would benefit from volume removal from my perspective 3. Hyperlipidemia/hypertension/elevated troponin/protracted hypoxia Complicates care, management, recovery and prognosis. Patient's blood pressure is marginal at this time, but adequate. We will need to monitor for rebound given discontinuation of Cardizem and clonidine. Nephrology has been consulted. Do anticipate an element of elevated troponin given systemic hypoxia. Patient does not have any findings on telemetry to suggest acute cardio intervention. Patient may require an echocardiogram for evaluation in the future. Empiric diuretic therapy was not successful overnight TIME: 32 minutes critical care time spent addressing patient's acute hypoxic respiratory failure, acute kidney injury, review of all data and collaboration with care team (5:30 AM to 6:30 AM) [phone]: [id number] Critical care first hour
[2020-01-21] MEDS: Chlorhexidine 15 ML PO ×2 (08:30→20:26)
[2020-01-21] MEDS: dexAMETHasone 10 MG/ML Vial 6 MG IV (08:31)
[2020-01-21] MEDS: Famotidine 20 MG Tablet GT (08:31)
[2020-01-21] MEDS: Aspirin 81 MG TAB.CHEW GT (08:31)
[2020-01-21] MEDS: Senna/Docusate Sodium 1 Tablet 2 TABLET PO ×2 (08:31→20:27)
--- NOTE | 2020-01-21 09:48 | PCM.PN.REN ---
Patient Problems: Active and Suspected Problems (Last Updated 09/02/18 @ 13:55 by Katheryn Mosqueda) TUCKER (acute kidney injury) (Acute) COVID-19 virus infection (Acute) Acute respiratory failure with hypoxia (Acute) Subjective: events noted worsening renal failure BUN and cr higher not much urine output - Physical Exam Vitals/I&O's: Vital Signs Temp Pulse Resp BP Pulse Ox 99.4 F H 92 20 H 125/71 H 91 01/21/20 05:00 01/21/20 07:01 01/21/20 07:01 01/21/20 06:00 01/21/20 07:01 Oxygen Flow Rate (L/min) 50 Oxygen Delivery Method Mechanical Ventilator Weight: 78.7 kg Body Mass Index (BMI) 26.0 Intake and Output for Last 24 Hours 01/19/20 01/20/20 01/21/20 23:59 23:59 23:59 Intake Total 1868.65 / 1899.25 1637.14 / 1669.54 1343.26 / 1343.26 Output Total 850 / 850 525 / 725 725 / 725 Balance 1018.65 / 1049.25 1112.14 / 944.54 618.26 / 618.26 General: No apparent distress HEENT: Normocephalic Neck: Supple, No JVD Lungs: Normal air movement Cardiovascular: Regular rate, No murmurs Abdomen: Bowel Sounds Present Extremities: No edema, Capillary Refill Less than 3 Seconds Skin: No rashes, No breakdown Musculoskeletal: No Tenderness to Palpation of Joints or Extremities Microbiology Past 72 Hours 01/19/20 01:45 Sputum, Induced/Lukens Gram Stain - Final 01/19/20 01:45 Sputum, Induced/Lukens Respiratory Culture - Final 01/18/20 16:36 Blood Culture (Wb) - Left Forearm Blood Culture - Preliminary No growth in 48 hours. 01/18/20 16:25 Blood Culture (Wb) - Anticubital Left Blood Culture - Preliminary No growth in 48 hours. Laboratory Results 01/20/20 14:37: Specimen Type ART, Sample Site R Radial, pH 7.17 L*, Bicarbonate Actual 18.3 L, Total CO2 20, Base Excess -10 L, O2 Saturation 99, O2 % 85, ABG pCO2 50.2 H, ABG pO2 165 H, Respiration Rate 12, O2 Delivery Device Adult Vent, Vent Mode BiLevel 01/20/20 17:00: APTT 126.6 H* 01/20/20 17:39: Specimen Type ART, Sample Site R Radial, pH 7.26 L, Bicarbonate Actual 16.3 L, Total CO2 17, Base Excess -11 L, O2 Saturation 94 L, O2 % 55, ABG pCO2 36.5, ABG pO2 79, Erlin Test Positive, O2 Delivery Device Adult Vent, Vent Mode BiLevel 01/21/20 03:05: WBC 23.9 H, RBC 3.60 L, Hgb 10.5 L, Hct 32.4 L, MCV 90.0, MCH 29.2, MCHC 32.4, RDW Std Deviation 45.2 H, RDW Coeff of Genaro 13.6, Plt Count 323, MPV 9.8 01/21/20 03:05: Sodium 131 L, Potassium 4.5, Chloride 100, Carbon Dioxide 18.0 L, Anion Gap 13, BUN 112 H*, Creatinine 4.71 H, Estim Creat Clear Calc 17.35, Est GFR (MDRD) Af Amer 17 L, Est GFR (MDRD) Non-Af 14 L, BUN/Creatinine Ratio 23.8 H, Glucose 333 H, Calcium 7.9 L, Total Bilirubin 0.30, AST 39 H, ALT 51, Alkaline Phosphatase 75, Total Protein 6.3 L, Albumin 2.1 L, Globulin 4.2, Albumin/Globulin Ratio 0.5 L 01/21/20 03:05: APTT 39.1 H 01/21/20 05:55: Specimen Type ART, Sample Site R Radial, pH 7.28 L, Bicarbonate Actual 17.1 L, Total CO2 18, Base Excess -10 L, O2 Saturation 93 L, O2 % 45, ABG pCO2 36.5, ABG pO2 73 L, Erlin Test Positive, Respiration Rate 15, O2 Delivery Device Adult Vent, Vent Mode BiLevel, POC PEEP 22 Current Medications Acetaminophen (Acetaminophen 325 Mg Tablet) 650 mg PO Q6H PRN PRN PRN Reason: Pain Score 1-10/Temp > 100.7 F Albuterol Sulfate (Albuterol 2.5 Mg/3 Ml Vial.Neb.) 2.5 mg INHALATION Q2H PRN PRN PRN Reason: WHEEZING Aspirin (Aspirin 81 Mg Tab.Chew) 81 mg GT DAILY [facility] Last Admin: 01/21/20 08:31 Dose: 81 mg Documented by: Chlorhexidine Gluconate (Chlorhexidine 15 Ml) 15 ml PO BID [facility] Last Admin: 01/21/20 08:30 Dose: 15 ml Documented by: Dexamethasone Sodium Phosphate (Dexamethasone 10 Mg/Ml Vial) 6 mg IV DAILY [facility] Stop: 01/27/20 10:01 Last Admin: 01/21/20 08:31 Dose: 6 mg Documented by: Famotidine (Famotidine 20 Mg Tablet) 20 mg GT DAILY [facility] Last Admin: 01/21/20 08:31 Dose: 20 mg Documented by: Heparin Sodium (Porcine) (Heparin Injection (Vial) 5,000 Unit/Ml Vial) 0 unit IV UD PRN; Protocol PRN Reason: dose adjustment Last Admin: 01/21/20 06:20 Dose: 5,000 unit Documented by: Propofol (Diprivan) 1,000 mg in 100 mls @ 4.98 mls/hr CONT INF .Q12H KEARA; Protocol Last Titration: 01/21/20 06:00 Dose: 35 mcg/kg/min, 17.4 mls/hr Documented by: Heparin Sodium/Dextrose () 25,000 units in 250 mls @ 11 mls/hr IV .[id number] KEARA; Protocol Last Titration: 01/21/20 06:30 Dose: 1,200 units/hr, 12 mls/hr Documented by: Fentanyl Citrate 1,000 mcg/ (Sodium Chloride) 100 mls @ 2.5 mls/hr CONT INF .Q40H KEARA; Protocol Last Titration: 01/21/20 06:00 Dose: 200 mcg/hr, 20 mls/hr Documented by: Sodium Chloride () 250 mls @ 15 mls/hr IV .[id number] PRN PRN Reason: Saline Flush Sodium Chloride () 250 mls @ 15 mls/hr IV .[id number] PRN PRN Reason: Additional IVPB Infusion Enteral Nutritional Formula (Vital Af 1.2 José Miguel Liquid) 1,000 mls @ 60 mls/hr GT .[id number] [facility] Last Admin: 01/21/20 03:30 Dose: 60 mls/hr Documented by: Diltiazem HCl 125 mg/ Dextrose 125 mls @ 5 mls/hr IV .Q25H [facility]; Protocol Last Admin: 01/21/20 00:50 Dose: 15 mg/hr, 15 mls/hr Documented by: Ondansetron HCl (Ondansetron 4 Mg/2 Ml Vial) 4 mg IV Q8H PRN PRN PRN Reason: NAUSEA/VOMITING Senna/Docusate Sodium (Senna/Docusate Sodium 1 Tablet) 2 tablet PO BID KEARA Last Admin: 01/21/20 08:31 Dose: 2 tablet Documented by: Sodium Chloride (0.9% Saline Lock 10 Ml Syringe) 10 - 40 ml IV UD PRN PRN Reason: SALINE FLUSH Last Admin: 01/19/20 05:11 Dose: 20 ml Documented by: Medical Necessity - Tobacco Use Smoking Status: Former smoker Tobacco Use: Non-smoker Assessment/Plan All Active Problems (Last Updated 09/02/18 @ 13:55 by Katheryn Mosqueda) TUCKER (acute kidney injury) (Acute) COVID-19 virus infection (Acute) Acute respiratory failure with hypoxia (Acute) Acute renal failure cKd stage III History of kidney transplant 15 years ago Covid pneumonia Sustained acute renal failure in hospital. White count is high. Being empirically covered for secondary bacterial infection. D-dimer was high. On heparin drip empirically. Blood pressure is acceptable. He was told to hold CellCept at the time of ER visit and hence has not been on antimetabolite for almost 10 days now. He was taking tacrolimus up until 01/20/20. Tacrolimus levels have been sent. Currently on Decadron 6 mg orally once a day which should cover as immunosuppression for now. Most likely acute renal failure is ATN related to sepsis with a differential of tacrolimus toxicity. Continue to hold tacrolimus and continue Decadron for now. Follow on tacrolimus levels will update [facility] discussed with Dr Baird
--- NOTE | 2020-01-21 10:10 | PCM.PROGNOTE ---
Patient Problems: Active and Suspected Problems (Last Updated 09/02/18 @ 13:55 by Katheryn Mosqueda) TUCKER (acute kidney injury) (Acute) COVID-19 virus infection (Acute) Acute respiratory failure with hypoxia (Acute) Subjective: Chief complaint: Follow-up after admission for acute COVID-19 pneumonia and acute hypoxic respiratory failure, atrial flutter with RVR, acute kidney injury on top of stage III chronic kidney disease. Patient seen and examined. No acute events overnight. This morning, he is on APRV. He is opening his eyes to verbal stimuli, following commands. He remains on APRV this morning, FiO2 of 40%. He is afebrile, blood pressure improved, on mechanical ventilation. - Physical Exam Vitals/I&O's: Vital Signs Temp Pulse Resp BP Pulse Ox 99.7 F H 94 13 126/74 H 91 01/21/20 09:00 01/21/20 08:00 01/21/20 09:00 01/21/20 09:00 01/21/20 07:01 Oxygen Flow Rate (L/min) 50 Oxygen Delivery Method Mechanical Ventilator Weight: 173 lb 8.061 oz Body Mass Index (BMI) 26.0 Intake and Output for Last 24 Hours 01/19/20 01/20/20 01/21/20 23:59 23:59 23:59 Intake Total 1868.65 / 1899.25 1637.14 / 1669.54 1343.26 / 1343.26 Output Total 850 / 850 525 / 725 725 / 725 Balance 1018.65 / 1049.25 1112.14 / 944.54 618.26 / 618.26 General: Cooperative, - - Open eyes to verbal stimuli, trying to follow commands. HEENT: Atraumatic, PERRLA, EOMI, Normocephalic Oral: Moist Mucosa, No Gingival or Mucosal Lesions/ Ulcerations Neck: Supple, No JVD, Negative Carotid Bruits, Trachea Midline, Thyroid Normal Size and Texture Lungs: Clear to auscultation, No rhonchi, No wheeze, Diminished, Rales Cardiovascular: Normal S1, Normal S2, PMI Normal, Irregular Rate Abdomen: Bowel Sounds Present, Soft, Non Tender, Non-Distended, No Hepato-splenomegaly, Obese Extremities: No clubbing, No cyanosis, Edema Skin: No rashes, No breakdown Lymphatic: No Cervical, Supraclavicular, or Inguinal Adenopathy Neurological: Cranial nerves II-XII grossly intact, Neuro grossly intact Psych/Mental Status: - - Unable to assess appropriately. Microbiology Past 72 Hours 01/19/20 01:45 Sputum, Induced/Lukens Gram Stain - Final 01/19/20 01:45 Sputum, Induced/Lukens Respiratory Culture - Final 01/18/20 16:36 Blood Culture (Wb) - Left Forearm Blood Culture - Preliminary No growth in 48 hours. 01/18/20 16:25 Blood Culture (Wb) - Anticubital Left Blood Culture - Preliminary No growth in 48 hours. Laboratory Results 01/20/20 14:37: Specimen Type ART, Sample Site R Radial, pH 7.17 L*, Bicarbonate Actual 18.3 L, Total CO2 20, Base Excess -10 L, O2 Saturation 99, O2 % 85, ABG pCO2 50.2 H, ABG pO2 165 H, Respiration Rate 12, O2 Delivery Device Adult Vent, Vent Mode BiLevel 01/20/20 17:00: APTT 126.6 H* 01/20/20 17:39: Specimen Type ART, Sample Site R Radial, pH 7.26 L, Bicarbonate Actual 16.3 L, Total CO2 17, Base Excess -11 L, O2 Saturation 94 L, O2 % 55, ABG pCO2 36.5, ABG pO2 79, Erlin Test Positive, O2 Delivery Device Adult Vent, Vent Mode BiLevel 01/21/20 03:05: WBC 23.9 H, RBC 3.60 L, Hgb 10.5 L, Hct 32.4 L, MCV 90.0, MCH 29.2, MCHC 32.4, RDW Std Deviation 45.2 H, RDW Coeff of Genaro 13.6, Plt Count 323, MPV 9.8 01/21/20 03:05: Sodium 131 L, Potassium 4.5, Chloride 100, Carbon Dioxide 18.0 L, Anion Gap 13, BUN 112 H*, Creatinine 4.71 H, Estim Creat Clear Calc 17.35, Est GFR (MDRD) Af Amer 17 L, Est GFR (MDRD) Non-Af 14 L, BUN/Creatinine Ratio 23.8 H, Glucose 333 H, Calcium 7.9 L, Total Bilirubin 0.30, AST 39 H, ALT 51, Alkaline Phosphatase 75, Total Protein 6.3 L, Albumin 2.1 L, Globulin 4.2, Albumin/Globulin Ratio 0.5 L 01/21/20 03:05: APTT 39.1 H 01/21/20 05:55: Specimen Type ART, Sample Site R Radial, pH 7.28 L, Bicarbonate Actual 17.1 L, Total CO2 18, Base Excess -10 L, O2 Saturation 93 L, O2 % 45, ABG pCO2 36.5, ABG pO2 73 L, Erlin Test Positive, Respiration Rate 15, O2 Delivery Device Adult Vent, Vent Mode BiLevel, POC PEEP 22 Current Medications Acetaminophen (Acetaminophen 325 Mg Tablet) 650 mg PO Q6H PRN PRN PRN Reason: Pain Score 1-10/Temp > 100.7 F Albuterol Sulfate (Albuterol 2.5 Mg/3 Ml Vial.Neb.) 2.5 mg INHALATION Q2H PRN PRN PRN Reason: WHEEZING Aspirin (Aspirin 81 Mg Tab.Chew) 81 mg GT DAILY [facility] Last Admin: 01/21/20 08:31 Dose: 81 mg Documented by: Chlorhexidine Gluconate (Chlorhexidine 15 Ml) 15 ml PO BID [facility] Last Admin: 01/21/20 08:30 Dose: 15 ml Documented by: Dexamethasone Sodium Phosphate (Dexamethasone 10 Mg/Ml Vial) 6 mg IV DAILY [facility] Stop: 01/27/20 10:01 Last Admin: 01/21/20 08:31 Dose: 6 mg Documented by: Famotidine (Famotidine 20 Mg Tablet) 20 mg GT DAILY [facility] Last Admin: 01/21/20 08:31 Dose: 20 mg Documented by: Heparin Sodium (Porcine) (Heparin Injection (Vial) 5,000 Unit/Ml Vial) 0 unit IV UD PRN; Protocol PRN Reason: dose adjustment Last Admin: 01/21/20 06:20 Dose: 5,000 unit Documented by: Propofol (Diprivan) 1,000 mg in 100 mls @ 4.98 mls/hr CONT INF .Q12H [facility]; Protocol Last Titration: 01/21/20 06:00 Dose: 35 mcg/kg/min, 17.4 mls/hr Documented by: Heparin Sodium/Dextrose () 25,000 units in 250 mls @ 11 mls/hr IV .[id number] [facility]; Protocol Last Titration: 01/21/20 06:30 Dose: 1,200 units/hr, 12 mls/hr Documented by: Fentanyl Citrate 1,000 mcg/ (Sodium Chloride) 100 mls @ 2.5 mls/hr CONT INF .Q40H KEARA; Protocol Last Titration: 01/21/20 06:00 Dose: 200 mcg/hr, 20 mls/hr Documented by: Sodium Chloride () 250 mls @ 15 mls/hr IV .[id number] PRN PRN Reason: Saline Flush Sodium Chloride () 250 mls @ 15 mls/hr IV .[id number] PRN PRN Reason: Additional IVPB Infusion Enteral Nutritional Formula (Vital Af 1.2 José Miguel Liquid) 1,000 mls @ 60 mls/hr GT .[id number] [facility] Last Admin: 01/21/20 03:30 Dose: 60 mls/hr Documented by: Diltiazem HCl 125 mg/ Dextrose 125 mls @ 5 mls/hr IV .Q25H KEARA; Protocol Last Admin: 01/21/20 00:50 Dose: 15 mg/hr, 15 mls/hr Documented by: Ondansetron HCl (Ondansetron 4 Mg/2 Ml Vial) 4 mg IV Q8H PRN PRN PRN Reason: NAUSEA/VOMITING Senna/Docusate Sodium (Senna/Docusate Sodium 1 Tablet) 2 tablet PO BID [facility] Last Admin: 01/21/20 08:31 Dose: 2 tablet Documented by: Sodium Chloride (0.9% Saline Lock 10 Ml Syringe) 10 - 40 ml IV UD PRN PRN Reason: SALINE FLUSH Last Admin: 01/19/20 05:11 Dose: 20 ml Documented by: Medical Necessity - Tobacco Use Smoking Status: Former smoker Tobacco Use: Non-smoker Assessment/Plan All Active Problems (Last Updated 09/02/18 @ 13:55 by Katheryn Mosqueda) TUCKER (acute kidney injury) (Acute) COVID-19 virus infection (Acute) Acute respiratory failure with hypoxia (Acute) This is a 54 years old male patient presented to the emergency room because of shortness of breath, found to have COVID-19 pneumonia and his pulse ox dropped while patient was in the ED, needed to be intubated and started on mechanical ventilation. #1 acute bilateral COVID-19 pneumonia: Remained on IV dexamethasone and remdesivir. IV meropenem discontinued. As well as IV meropenem. Remained on mechanical ventilation on APRV with FiO2 of 40%. He is on sedation with IV fentanyl and propofol. Blood pressure stabilized, has been afebrile, heart rate improved. Sputum culture showed no growth. Blood cultures showed no growth in 48 hours. Critical care and infectious disease On the case. Plan to continue same treatment. #2 acute hypoxic respiratory failure: Secondary to #1. Currently, on mechanical ventilation with minimal settings, oxygen requirement has been decreasing, he is down FiO2 of 40%, on APRV. Plan as above. #3 abnormal cardiac enzymes: Likely due to demand ischemia. EKG without acute segment changes. #4 acute kidney injury on top of stage III chronic kidney disease: In the setting of history of renal transplant. Today, BUN is 112 and creatinine is 4.71, it is worsening. Yesterday, we tried to transfer patient to [facility] but they have no beds available in the ICU. We contacted the patient's transplant cable placer who discussed the case with our cable placer. CellCept and tacrolimus held. Patient is on IV Decadron. Today, creatinine is trending up. Decision was made to start hemodialysis. Patient currently on hemodialysis. Nephrology on the case. #5 new onset atrial flutter/fibrillation: Remained on Cardizem drip. Heart rate is down to around 90s, blood pressure stabilized. #6 hypertension: Currently, blood pressure improved. Antihypertensive medications held. #7 hyperlipidemia: Statins held. #8 DVT prophylaxis: He is on IV heparin drip. This note was generated with [employer]inch dictation software. It may contain incorrect words, spelling, and punctuation that were not noted in checking the note before signing. Inpatient E&M: [address] [facility]
[2020-01-21] MEDS: Propofol 10MG/Ml 1,000 MG/100 ML Bottle 17.4 MG CONT INF (11:05)
[2020-01-21 11:15] LABS: Bedside Glucose 281 mg/dL (70-110)
[2020-01-21 11:22] LABS: Partial Thromboplast Time 113.8 Seconds (24.1-36.2)
--- NOTE | 2020-01-21 11:56 | DIALYSIS ---
HD x 2.5 hours complete. Tolerated tx well. UF of 1300ml. Used left arm fistula. Used 2 17g needles. [place] removed post tx and pressure applied x 10 minutes. Hemoastasis achieved. Fresh gauze and tape applied. See tx sheet for more details. Report was given to MONIQUE Carlson.
[2020-01-21 12:05] LABS: Hepatitis B Surface Antigen Non-Reactive (Nonreactive)
--- NOTE | 2020-01-21 16:10 | PCM.PN.ID ---
Patient Problems: Active and Suspected Problems (Last Updated 09/02/18 @ 13:55 by Katheryn Mosqueda) TUCKER (acute kidney injury) (Acute) COVID-19 virus infection (Acute) Acute respiratory failure with hypoxia (Acute) Subjective: On vent, no fever - Physical Exam Vitals/I&O's: Vital Signs Temp Pulse Resp BP Pulse Ox 99.1 F 96 12 110/65 92 01/21/20 16:00 01/21/20 16:00 01/21/20 16:00 01/21/20 16:00 01/21/20 16:00 Oxygen Flow Rate (L/min) 50 Oxygen Delivery Method Mechanical Ventilator Weight: 78.7 kg Body Mass Index (BMI) 26.0 Intake and Output for Last 24 Hours 01/19/20 01/20/20 01/21/20 23:59 23:59 23:59 Intake Total 1868.65 / 1899.25 1637.14 / 1669.54 1701.39 / 1701.39 Output Total 850 / 850 525 / 725 725 / 725 Balance 1018.65 / 1049.25 1112.14 / 944.54 976.39 / 976.39 General: No apparent distress Lungs: Diminished Cardiovascular: Regular rate, Regular Rhythm Abdomen: Soft, Non Tender, Non-Distended Skin: No rashes Microbiology Past 72 Hours 01/19/20 01:45 Sputum, Induced/Lukens Gram Stain - Final 01/19/20 01:45 Sputum, Induced/Lukens Respiratory Culture - Final 01/18/20 16:36 Blood Culture (Wb) - Left Forearm Blood Culture - Preliminary No growth in 48 hours. 01/18/20 16:25 Blood Culture (Wb) - Anticubital Left Blood Culture - Preliminary No growth in 48 hours. Laboratory Results 01/20/20 17:00: APTT 126.6 H* 01/20/20 17:39: Specimen Type ART, Sample Site R Radial, pH 7.26 L, Bicarbonate Actual 16.3 L, Total CO2 17, Base Excess -11 L, O2 Saturation 94 L, O2 % 55, ABG pCO2 36.5, ABG pO2 79, Erlin Test Positive, O2 Delivery Device Adult Vent, Vent Mode BiLevel 01/21/20 00:17: POC Glucose 281 H 01/21/20 03:05: WBC 23.9 H, RBC 3.60 L, Hgb 10.5 L, Hct 32.4 L, MCV 90.0, MCH 29.2, MCHC 32.4, RDW Std Deviation 45.2 H, RDW Coeff of Genaro 13.6, Plt Count 323, MPV 9.8 01/21/20 03:05: Sodium 131 L, Potassium 4.5, Chloride 100, Carbon Dioxide 18.0 L, Anion Gap 13, BUN 112 H*, Creatinine 4.71 H, Estim Creat Clear Calc 17.35, Est GFR (MDRD) Af Amer 17 L, Est GFR (MDRD) Non-Af 14 L, BUN/Creatinine Ratio 23.8 H, Glucose 333 H, Calcium 7.9 L, Total Bilirubin 0.30, AST 39 H, ALT 51, Alkaline Phosphatase 75, Total Protein 6.3 L, Albumin 2.1 L, Globulin 4.2, Albumin/Globulin Ratio 0.5 L 01/21/20 03:05: APTT 39.1 H 01/21/20 05:55: Specimen Type ART, Sample Site R Radial, pH 7.28 L, Bicarbonate Actual 17.1 L, Total CO2 18, Base Excess -10 L, O2 Saturation 93 L, O2 % 45, ABG pCO2 36.5, ABG pO2 73 L, Erlin Test Positive, Respiration Rate 15, O2 Delivery Device Adult Vent, Vent Mode BiLevel, POC PEEP 22 01/21/20 10:55: Hep Bs Antigen Non-Reactive 01/21/20 10:55: Hep B Core Total Ab Pending 01/21/20 10:55: APTT 113.8 H* Current Medications Acetaminophen (Acetaminophen 325 Mg Tablet) 650 mg PO Q6H PRN PRN PRN Reason: Pain Score 1-10/Temp > 100.7 F Albuterol Sulfate (Albuterol 2.5 Mg/3 Ml Vial.Neb.) 2.5 mg INHALATION Q2H PRN PRN PRN Reason: WHEEZING Aspirin (Aspirin 81 Mg Tab.Chew) 81 mg GT DAILY [facility] Last Admin: 01/21/20 08:31 Dose: 81 mg Documented by: Chlorhexidine Gluconate (Chlorhexidine 15 Ml) 15 ml PO BID [facility] Last Admin: 01/21/20 08:30 Dose: 15 ml Documented by: Dexamethasone Sodium Phosphate (Dexamethasone 10 Mg/Ml Vial) 6 mg IV DAILY [facility] Stop: 01/27/20 10:01 Last Admin: 01/21/20 08:31 Dose: 6 mg Documented by: Famotidine (Famotidine 20 Mg Tablet) 20 mg GT DAILY [facility] Last Admin: 01/21/20 08:31 Dose: 20 mg Documented by: Heparin Sodium (Porcine) (Heparin Injection (Vial) 5,000 Unit/Ml Vial) 0 unit IV UD PRN; Protocol PRN Reason: dose adjustment Last Admin: 01/21/20 06:20 Dose: 5,000 unit Documented by: Propofol (Diprivan) 1,000 mg in 100 mls @ 4.98 mls/hr CONT INF .Q12H KEARA; Protocol Last Titration: 01/21/20 11:37 Dose: 35 mcg/kg/min, 17.4 mls/hr Documented by: Heparin Sodium/Dextrose () 25,000 units in 250 mls @ 11 mls/hr IV .[id number] KEARA; Protocol Last Titration: 01/21/20 11:37 Dose: 0 units/hr, 0 mls/hr Documented by: Fentanyl Citrate 1,000 mcg/ (Sodium Chloride) 100 mls @ 2.5 mls/hr CONT INF .Q40H KEARA; Protocol Last Admin: 01/21/20 13:26 Dose: 200 mcg/hr, 20 mls/hr Documented by: Sodium Chloride () 250 mls @ 15 mls/hr IV .[id number] PRN PRN Reason: Saline Flush Sodium Chloride () 250 mls @ 15 mls/hr IV .[id number] PRN PRN Reason: Additional IVPB Infusion Enteral Nutritional Formula (Vital Af 1.2 José Miguel Liquid) 1,000 mls @ 60 mls/hr GT .[id number] [facility] Last Admin: 01/21/20 03:30 Dose: 60 mls/hr Documented by: Diltiazem HCl 125 mg/ Dextrose 125 mls @ 5 mls/hr IV .Q25H [facility]; Protocol Last Titration: 01/21/20 11:37 Dose: 15 mg/hr, 15 mls/hr Documented by: Remdesivir 100 mg/ Sodium (Chloride) 250 mls @ 125 mls/hr IV DAILY [facility]; Protocol Stop: 01/21/20 16:29 Ondansetron HCl (Ondansetron 4 Mg/2 Ml Vial) 4 mg IV Q8H PRN PRN PRN Reason: NAUSEA/VOMITING Senna/Docusate Sodium (Senna/Docusate Sodium 1 Tablet) 2 tablet PO BID KEARA Last Admin: 01/21/20 08:31 Dose: 2 tablet Documented by: Sodium Chloride (0.9% Saline Lock 10 Ml Syringe) 10 - 40 ml IV UD PRN PRN Reason: SALINE FLUSH Last Admin: 01/19/20 05:11 Dose: 20 ml Documented by: Medical Necessity - Tobacco Use Smoking Status: Former smoker Tobacco Use: Non-smoker Route of nutrition/ use of supplements: [] Nutritional Intake: [] IV Site: [] Fernando Catheter: [] - Assessment/Plan Antibiotics: [] Assessment/Plan: [] Active and Suspected Problems (Last Updated 09/02/18 @ 13:55 by Katheryn Mosqueda) COVID-19 virus infection (Acute) Acute respiratory failure with hypoxia (Acute) covid with hypoxia, resp failure, renal transplant - on hep gtt, dex and got 2 doses of remdesivir. D-dimer was 4.2. O2 improved but worsened TUCKER. HD today. Will give another dose of remdesivir today and follow labs. Holding bactrim. [place] level pending. Neph following. Will follow
[2020-01-21 21:59] LABS: Partial Thromboplast Time 61.4 Seconds (24.1-36.2)
--- NOTE | 2020-01-21 22:09 | NURSING ---
Propofol and Fentanyl were charted as infused by prior shift. Medication is still infusing and within titration parameters.
[2020-01-22] VITALS (33 sets, daily range): BP systolic 122–179; BP diastolic 68–98; PULSE 88–136; RESP 13–36; TEMP 37.7–38.6; O2SAT 89–96
[2020-01-22] MEDS: HEPARIN/D5w 25,000 UNITS 25,000 UNITS/250 ML IV.SOLN. 9 UNITS IV (00:36)
[2020-01-22] MEDS: 0.9% Saline Lock 10 ML Syringe IV ×2 (02:18→03:40)
[2020-01-22] MEDS: Propofol 10MG/Ml 1,000 MG/100 ML Bottle 14.9 MG CONT INF (02:29)
[2020-01-22] MEDS: Vital AF 1.2 Cal Liquid 1,000 ML 60 ML GT ×2 (03:40→22:28)
[2020-01-22 04:01] LABS: Hemoglobin 10.1 g/dL (13.0-16.5); Mean Corp Hgb Conc 33.7 g/dL (32-36); Mean Corpuscular Hgb 28.8 pg (27.0-32.0); Mean Corpuscular Volume 85.5 fL (80-94); Mean Platelet Vol. 9.7 fl (6.2-12.0); Platelet Count 341 K/mm3 (150-450); RBC Distribution Width CV 13.4 % (11.6-14.6); RBC Distribution Width SD 41.2 fl (35.1-43.9); Red Blood Count 3.51 M/mm3 (4.6-6.2); White Blood Count 17.9 K/mm3 (4.4-11.0)
--- NOTE | 2020-01-22 04:23 | CPS ---
Pt.'s Pressure High setting decreased to 18
[2020-01-22 04:24] LABS: ALB/GLOB Ratio 0.5 RATIO (0.9-2.4); AST(SGOT) 35 U/L (15-37); Alanine Aminotransfer ALT/SGPT 42 U/L (16-61); Alkaline Phosphatase 71 U/L (45-117); Anion Gap 7 (5-15); BUN 86 mg/dL (7-18); BUN/Creat Ratio 30.2 RATIO (10-20); Calcium,Total 8.2 mg/dL (8.5-10.1); Chloride 98 mmol/L (98-107); Creatinine, Serum 2.85 mg/dL (0.70-1.30); EST Glomerular Filtration Rate 25 mL/min (>60); Est Glom Filt Rate - Afr Amer 30 mL/min (>60); Estimated Creatinine Clearance 28.67 ml/min; Globulin 4.3 g/dL (2.2-4.2); Glucose 348 mg/dL (74-106); Potassium 4.8 mmol/L (3.5-5.1); Protein, Total 6.3 g/dL (6.4-8.2); Sodium Level 132 mmol/L (136-145)
[2020-01-22 04:32] LABS: Partial Thromboplast Time 149.7 Seconds (24.1-36.2)
[2020-01-22] MEDS: TITRATION PARAMETER CHANGE 1 EACH IV (06:08)
[2020-01-22 06:11] LABS: Allen Test Positive; Base Excess 0 mmol/L (-2 to +2); Bicarbonate 25.3 mmol/L (22-26); Blood Gas Specimen Type ART; FI02 40; Mode BiLevel; O2 Delivery Device Adult Vent; PO2 60 mmHG (75-100); PS 0; RR 12; SITE R Radial; SO2 90 % (95-99); Total Carbon Dioxide 27 mmol/L; pCO2 42.8 mmHg (35-45); pH 7.38 (7.35-7.45)
[2020-01-22] MEDS: Chlorhexidine 15 ML PO ×2 (09:11→22:03)
[2020-01-22] MEDS: dexAMETHasone 10 MG/ML Vial 6 MG IV (09:11)
--- NOTE | 2020-01-22 09:14 | PN_ITS ---
Subjective: Patient did well overnight. Patient did have hemodialysis yesterday with 1500 cc removed. Patient did have some elevated glucose overnight and a mild fever. Patient's oxygenation and vent synchrony have improved with transition to APRV. Patient is interactive. Nursing did report some brown secretions removed from OG General: Alert, Cooperative, No apparent distress - Better vent synchrony. HEENT: Atraumatic, PERRLA, EOMI, Normocephalic Oral: Moist Mucosa, No Gingival or Mucosal Lesions/ Ulcerations Neck: Supple, No Nodes, Trachea Midline Lungs: No rhonchi, No wheeze, No rales, Diminished Cardiovascular: Normal S1, Normal S2, No murmurs, No rub noted, No Gallop, Tachycardic Abdomen: Bowel Sounds Present, Soft, Non Tender, Non-Distended Extremities: No clubbing, No cyanosis, - - Palpable thrill left wrist Skin: - - No change compared to previous Musculoskeletal: No Tenderness to Palpation of Joints or Extremities Lymphatic: No Cervical, Supraclavicular, or Inguinal Adenopathy Neurological: Cranial nerves II-XII grossly intact, Neuro grossly intact, Motor Exam 5/5 strength throughout Psych/Mental Status: Flat Affect Vital Signs Temp Pulse Resp BP Pulse Ox 38.0 C H 101 H 14 146/84 H 93 01/22/20 07:00 01/22/20 07:40 01/22/20 07:00 01/22/20 07:00 01/22/20 07:00 Oxygen Flow Rate (L/min) 50 Oxygen Delivery Method Mechanical Ventilator Weight: 77 kg Body Mass Index (BMI) 26.0 Intake and Output for Last 24 Hours 01/20/20 01/21/20 01/22/20 23:59 23:59 23:59 Intake Total 1637.14 / 1669.54 2912.66 / 2951.56 853.12 / 853.12 Output Total 525 / 725 2155 / 2155 945 / 945 Balance 1112.14 / 944.54 757.66 / 796.56 -91.88 / -91.88 Labs (Last 48 Hours) 01/20/20 01/20/20 01/20/20 08:50 09:30 14:37 WBC RBC Hgb Hct MCV MCH MCHC RDW Std Deviation RDW Coeff of Genaro Plt Count MPV APTT 39.2 H Specimen Type ART Sample Site R Radial pH 7.17 L* Bicarbonate Actual 18.3 L Total CO2 20 Base Excess -10 L O2 Saturation 99 O2 % 85 ABG pCO2 50.2 H ABG pO2 165 H Erlin Test Respiration Rate 12 O2 Delivery Device Adult Vent Vent Mode BiLevel POC PEEP POC Pressure Suppt Sodium Potassium Chloride Carbon Dioxide Anion Gap BUN Creatinine Estim Creat Clear Calc Est GFR (MDRD) Af Amer Est GFR (MDRD) Non-Af BUN/Creatinine Ratio Glucose Calcium Total Bilirubin AST ALT Alkaline Phosphatase Total Protein Albumin Globulin Albumin/Globulin Ratio Tacrolimus Pending Hep Bs Antigen Hep B Core Total Ab POC Glucose 01/20/20 01/20/20 01/21/20 17:00 17:39 00:17 WBC RBC Hgb Hct MCV MCH MCHC RDW Std Deviation RDW Coeff of Genaro Plt Count MPV APTT 126.6 H* Specimen Type ART Sample Site R Radial pH 7.26 L Bicarbonate Actual 16.3 L Total CO2 17 Base Excess -11 L O2 Saturation 94 L O2 % 55 ABG pCO2 36.5 ABG pO2 79 Erlin Test Positive Respiration Rate O2 Delivery Device Adult Vent Vent Mode BiLevel POC PEEP POC Pressure Suppt Sodium Potassium Chloride Carbon Dioxide Anion Gap BUN Creatinine Estim Creat Clear Calc Est GFR (MDRD) Af Amer Est GFR (MDRD) Non-Af BUN/Creatinine Ratio Glucose Calcium Total Bilirubin AST ALT Alkaline Phosphatase Total Protein Albumin Globulin Albumin/Globulin Ratio Tacrolimus Hep Bs Antigen Hep B Core Total Ab POC Glucose 281 H 01/21/20 01/21/20 01/21/20 03:05 03:05 03:05 WBC 23.9 H RBC 3.60 L Hgb 10.5 L Hct 32.4 L MCV 90.0 MCH 29.2 MCHC 32.4 RDW Std Deviation 45.2 H RDW Coeff of Genaro 13.6 Plt Count 323 MPV 9.8 APTT 39.1 H Specimen Type Sample Site pH Bicarbonate Actual Total CO2 Base Excess O2 Saturation O2 % ABG pCO2 ABG pO2 Erlin Test Respiration Rate O2 Delivery Device Vent Mode POC PEEP POC Pressure Suppt Sodium 131 L Potassium 4.5 Chloride 100 Carbon Dioxide 18.0 L Anion Gap 13 BUN 112 H* Creatinine 4.71 H Estim Creat Clear Calc 17.35 Est GFR (MDRD) Af Amer 17 L Est GFR (MDRD) Non-Af 14 L BUN/Creatinine Ratio 23.8 H Glucose 333 H Calcium 7.9 L Total Bilirubin 0.30 AST 39 H ALT 51 Alkaline Phosphatase 75 Total Protein 6.3 L Albumin 2.1 L Globulin 4.2 Albumin/Globulin Ratio 0.5 L Tacrolimus Hep Bs Antigen Hep B Core Total Ab POC Glucose 01/21/20 01/21/20 01/21/20 05:55 10:55 10:55 WBC RBC Hgb Hct MCV MCH MCHC RDW Std Deviation RDW Coeff of Genaro Plt Count MPV APTT Specimen Type ART Sample Site R Radial pH 7.28 L Bicarbonate Actual 17.1 L Total CO2 18 Base Excess -10 L O2 Saturation 93 L O2 % 45 ABG pCO2 36.5 ABG pO2 73 L Erlin Test Positive Respiration Rate 15 O2 Delivery Device Adult Vent Vent Mode BiLevel POC PEEP 22 POC Pressure Suppt Sodium Potassium Chloride Carbon Dioxide Anion Gap BUN Creatinine Estim Creat Clear Calc Est GFR (MDRD) Af Amer Est GFR (MDRD) Non-Af BUN/Creatinine Ratio Glucose Calcium Total Bilirubin AST ALT Alkaline Phosphatase Total Protein Albumin Globulin Albumin/Globulin Ratio Tacrolimus Hep Bs Antigen Non-Reactive Hep B Core Total Ab Pending POC Glucose 01/21/20 01/21/20 01/22/20 10:55 21:35 03:40 WBC 17.9 H RBC 3.51 L Hgb 10.1 L Hct 30.0 L MCV 85.5 MCH 28.8 MCHC 33.7 RDW Std Deviation 41.2 RDW Coeff of Genaro 13.4 Plt Count 341 MPV 9.7 APTT 113.8 H* 61.4 H Specimen Type Sample Site pH Bicarbonate Actual Total CO2 Base Excess O2 Saturation O2 % ABG pCO2 ABG pO2 Erlin Test Respiration Rate O2 Delivery Device Vent Mode POC PEEP POC Pressure Suppt Sodium Potassium Chloride Carbon Dioxide Anion Gap BUN Creatinine Estim Creat Clear Calc Est GFR (MDRD) Af Amer Est GFR (MDRD) Non-Af BUN/Creatinine Ratio Glucose Calcium Total Bilirubin AST ALT Alkaline Phosphatase Total Protein Albumin Globulin Albumin/Globulin Ratio Tacrolimus Hep Bs Antigen Hep B Core Total Ab POC Glucose 01/22/20 01/22/20 01/22/20 03:40 03:40 06:03 WBC RBC Hgb Hct MCV MCH MCHC RDW Std Deviation RDW Coeff of Genaro Plt Count MPV APTT 149.7 H* Specimen Type ART Sample Site R Radial pH 7.38 Bicarbonate Actual 25.3 Total CO2 27 Base Excess 0 O2 Saturation 90 L O2 % 40 ABG pCO2 42.8 ABG pO2 60 L Erlin Test Positive Respiration Rate 12 O2 Delivery Device Adult Vent Vent Mode BiLevel POC PEEP POC Pressure Suppt 0 Sodium 132 L Potassium 4.8 Chloride 98 Carbon Dioxide 27.0 Anion Gap 7 BUN 86 H Creatinine 2.85 H Estim Creat Clear Calc 28.67 Est GFR (MDRD) Af Amer 30 L Est GFR (MDRD) Non-Af 25 L BUN/Creatinine Ratio 30.2 H Glucose 348 H Calcium 8.2 L Total Bilirubin 0.30 AST 35 ALT 42 Alkaline Phosphatase 71 Total Protein 6.3 L Albumin 2.0 L Globulin 4.3 H Albumin/Globulin Ratio 0.5 L Tacrolimus Hep Bs Antigen Hep B Core Total Ab POC Glucose Microbiology 01/19/20 01:45 Sputum, Induced/Lukens Gram Stain - Final 01/19/20 01:45 Sputum, Induced/Lukens Respiratory Culture - Final 01/18/20 16:36 Blood Culture (Wb) - Left Forearm Blood Culture - Preliminary No growth in 48 hours. 01/18/20 16:25 Blood Culture (Wb) - Anticubital Left Blood Culture - Preliminary No growth in 48 hours. Medical Necessity - Tobacco Use Smoking Status: Former smoker Tobacco Use: Non-smoker Assessment/Plan All Active Problems (Last Updated 09/02/18 @ 13:55 by Katheryn Mosqueda) TUCKER (acute kidney injury) (Acute) COVID-19 virus infection (Acute) Acute respiratory failure with hypoxia (Acute) RECOMMENDATIONS: 1. Defer to nephrology on possible hemodialysis 2. Transition to PPI 3. Agree with empiric antibiotics and dexamethasone 4. H&H stable. Okay to continue heparin drip for now 5. Wean oxygen as tolerated 6. Continue APRV. Drop and stretch for now. Possible transition to assist control for spontaneous breathing trials in the next 24 to 48 hours IMPRESSIONS: 1. Acute hypoxic respiratory failure secondary to COVID-19 bilateral pneumonia Patient with significant bilateral infiltrates noted on chest x-ray. Patient reportedly is 2 to 3 weeks out from initial positive testing. Unclear if findings on x-ray are new or persisting from initial inflammation. Infectious diseases following. Agree with empiric antibiotics and meropenem. Patient has tolerated transition to APRV. Patient appears to have better synchrony understanding and volume control. ABG shows normalization of ventilation. Clinical suspicion for acidemia secondary to renal function. 2. Chronic kidney disease stage III to stage IV status post transplant Patient was off of CellCept secondary to COVID-19 diagnosis. Nephrology has been consulted. Await recommendations. Patient does not have any indication for renal replacement therapy at this time, but renal function is worsening. Patient unable to be transferred to a tertiary center secondary to bed availability. Unclear if Decadron is sufficient immunosuppression. Nephrology is reporting patient may require dialysis. Patient was able to use his fistula for intervention yesterday 3. Hyperlipidemia/hypertension/elevated troponin/protracted hypoxia Complicates care, management, recovery and prognosis. Patient's blood pressure is marginal at this time, but adequate. We will need to monitor for r ebound given discontinuation of Cardizem and clonidine. Nephrology has been consulted. Do anticipate an element of elevated troponin given systemic hypoxia. Patient does not have any findings on telemetry to suggest acute cardio intervention. Patient may require an echocardiogram for evaluation in the future. Decrease volume by dialysis. TIME: 34 minutes critical care time spent addressing patient's acute hypoxic respiratory failure, acute kidney injury, review of all data and collaboration with care team (5:45 AM to 6:45 AM) [phone] [id number] Critical care first hour
[2020-01-22] MEDS: Senna/Docusate Sodium 1 Tablet 2 TABLET PO ×2 (09:15→22:02)
[2020-01-22] MEDS: Aspirin 81 MG TAB.CHEW GT (09:15)
--- NOTE | 2020-01-22 09:18 | CPS ---
SHIVANI critical results for SHIVANI ran on 01/20/20 at 14:37 read to .
--- NOTE | 2020-01-22 09:43 | PCM.PROGNOTE ---
Patient Problems: Active and Suspected Problems (Last Updated 09/02/18 @ 13:55 by Katheryn Mosqueda) TUCKER (acute kidney injury) (Acute) COVID-19 virus infection (Acute) Acute respiratory failure with hypoxia (Acute) Subjective: Chief complaint: Follow-up after admission for acute COVID-19 pneumonia and acute hypoxic respiratory failure, atrial flutter with RVR, acute kidney injury on top of stage III chronic kidney disease. Patient seen and examined. No acute events overnight. This morning, he is sleepy but arousable, open eyes to verbal commands, trying to follow commands. He is on APRV, FiO2 40%. He developed spikes of low-grade fever overnight. Heart rate remained around 100, blood pressure stable. - Physical Exam Vitals/I&O's: Vital Signs Temp Pulse Resp BP Pulse Ox 100.4 F H 101 H 14 146/84 H 93 01/22/20 07:00 01/22/20 07:40 01/22/20 07:00 01/22/20 07:00 01/22/20 07:00 Oxygen Flow Rate (L/min) 50 Oxygen Delivery Method Mechanical Ventilator Weight: 169 lb 12.095 oz Body Mass Index (BMI) 26.0 Intake and Output for Last 24 Hours 01/20/20 01/21/20 01/22/20 23:59 23:59 23:59 Intake Total 1637.14 / 1669.54 2912.66 / 2951.56 853.12 / 853.12 Output Total 525 / 725 2155 / 2155 945 / 945 Balance 1112.14 / 944.54 757.66 / 796.56 -91.88 / -91.88 General: - - Sleepy, arousable open eyes to verbal stimuli, trying to follow commands. HEENT: Atraumatic, PERRLA, EOMI, Normocephalic Oral: Moist Mucosa, No Gingival or Mucosal Lesions/ Ulcerations Neck: Supple, No JVD, Negative Carotid Bruits, Trachea Midline, Thyroid Normal Size and Texture Lungs: Clear to auscultation, No rhonchi, No wheeze, No rales, Diminished Cardiovascular: Normal S1, Normal S2, PMI Normal, Irregular Rate, Tachycardic Abdomen: Bowel Sounds Present, Soft, Non Tender, Non-Distended, No Hepato-splenomegaly Extremities: No clubbing, No cyanosis, No edema Skin: No rashes, No breakdown Lymphatic: No Cervical, Supraclavicular, or Inguinal Adenopathy Neurological: Cranial nerves II-XII grossly intact, Neuro grossly intact Psych/Mental Status: - - Unable to assess. Microbiology Past 72 Hours 01/19/20 01:45 Sputum, Induced/Lukens Gram Stain - Final 01/19/20 01:45 Sputum, Induced/Lukens Respiratory Culture - Final 01/18/20 16:36 Blood Culture (Wb) - Left Forearm Blood Culture - Preliminary No growth in 48 hours. 01/18/20 16:25 Blood Culture (Wb) - Anticubital Left Blood Culture - Preliminary No growth in 48 hours. Laboratory Results 01/21/20 00:17: POC Glucose 281 H 01/21/20 10:55: Hep Bs Antigen Non-Reactive 01/21/20 10:55: Hep B Core Total Ab Pending 01/21/20 10:55: APTT 113.8 H* 01/21/20 21:35: APTT 61.4 H 01/22/20 03:40: WBC 17.9 H, RBC 3.51 L, Hgb 10.1 L, Hct 30.0 L, MCV 85.5, MCH 28.8, MCHC 33.7, RDW Std Deviation 41.2, RDW Coeff of Genaro 13.4, Plt Count 341, MPV 9.7 01/22/20 03:40: Sodium 132 L, Potassium 4.8, Chloride 98, Carbon Dioxide 27.0, Anion Gap 7, BUN 86 H, Creatinine 2.85 H, Estim Creat Clear Calc 28.67, Est GFR (MDRD) Af Amer 30 L, Est GFR (MDRD) Non-Af 25 L, BUN/Creatinine Ratio 30.2 H, Glucose 348 H, Calcium 8.2 L, Total Bilirubin 0.30, AST 35, ALT 42, Alkaline Phosphatase 71, Total Protein 6.3 L, Albumin 2.0 L, Globulin 4.3 H, Albumin/Globulin Ratio 0.5 L 01/22/20 03:40: APTT 149.7 H* 01/22/20 06:03: Specimen Type ART, Sample Site R Radial, pH 7.38, Bicarbonate Actual 25.3, Total CO2 27, Base Excess 0, O2 Saturation 90 L, O2 % 40, ABG pCO2 42.8, ABG pO2 60 L, Erlin Test Positive, Respiration Rate 12, O2 Delivery Device Adult Vent, Vent Mode BiLevel, POC Pressure Suppt 0 Current Medications Acetaminophen (Acetaminophen 325 Mg Tablet) 650 mg PO Q6H PRN PRN PRN Reason: Pain Score 1-10/Temp > 100.7 F Albuterol Sulfate (Albuterol 2.5 Mg/3 Ml Vial.Neb.) 2.5 mg INHALATION Q2H PRN PRN PRN Reason: WHEEZING Aspirin (Aspirin 81 Mg Tab.Chew) 81 mg GT DAILY [facility] Last Admin: 01/22/20 09:15 Dose: 81 mg Documented by: Chlorhexidine Gluconate (Chlorhexidine 15 Ml) 15 ml PO BID [facility] Last Admin: 01/22/20 09:11 Dose: 15 ml Documented by: Dexamethasone Sodium Phosphate (Dexamethasone 10 Mg/Ml Vial) 6 mg IV DAILY [facility] Stop: 01/27/20 10:01 Last Admin: 01/22/20 09:11 Dose: 6 mg Documented by: Heparin Sodium (Porcine) (Heparin Injection (Vial) 5,000 Unit/Ml Vial) 0 unit IV UD PRN; Protocol PRN Reason: dose adjustment Last Admin: 01/21/20 06:20 Dose: 5,000 unit Documented by: Propofol (Diprivan) 1,000 mg in 100 mls @ 4.62 mls/hr CONT INF .Q12H [facility]; Protocol Last Titration: 01/22/20 07:00 Dose: 30 mcg/kg/min, 13.9 mls/hr Documented by: Heparin Sodium/Dextrose () 25,000 units in 250 mls @ 11 mls/hr IV .[id number] [facility]; Protocol Last Titration: 01/22/20 07:00 Dose: 600 units/hr, 6 mls/hr Documented by: Fentanyl Citrate 1,000 mcg/ (Sodium Chloride) 100 mls @ 2.5 mls/hr CONT INF .Q40H [facility]; Protocol Last Titration: 01/22/20 07:00 Dose: 200 mcg/hr, 20 mls/hr Documented by: Sodium Chloride () 250 mls @ 15 mls/hr IV .[id number] PRN PRN Reason: Saline Flush Sodium Chloride () 250 mls @ 15 mls/hr IV .[id number] PRN PRN Reason: Additional IVPB Infusion Enteral Nutritional Formula (Vital Af 1.2 José Miguel Liquid) 1,000 mls @ 60 mls/hr GT .[id number] [facility] Last Admin: 01/22/20 03:40 Dose: 60 mls/hr Documented by: Diltiazem HCl 125 mg/ Dextrose 125 mls @ 5 mls/hr IV .Q25H [facility]; Protocol Last Titration: 01/22/20 07:00 Dose: 15 mg/hr, 15 mls/hr Documented by: Pantoprazole Sodium 40 mg/ (Sodium Chloride) 110 mls @ 330 mls/hr IV Q12 [facility] Last Admin: 01/22/20 09:15 Dose: 330 mls/hr Documented by: Insulin Glargine (Insulin Glargine 100 Units/Ml Pen) 10 units SC BID [facility] Last Admin: 01/22/20 09:17 Dose: 10 u Documented by: Ondansetron HCl (Ondansetron 4 Mg/2 Ml Vial) 4 mg IV Q8H PRN PRN PRN Reason: NAUSEA/VOMITING Senna/Docusate Sodium (Senna/Docusate Sodium 1 Tablet) 2 tablet PO BID [facility] Last Admin: 01/22/20 09:15 Dose: 2 tablet Documented by: Sodium Chloride (0.9% Saline Lock 10 Ml Syringe) 10 - 40 ml IV UD PRN PRN Reason: SALINE FLUSH Last Admin: 01/22/20 03:40 Dose: 10 ml Documented by: Medical Necessity - Tobacco Use Smoking Status: Former smoker Tobacco Use: Non-smoker Assessment/Plan All Active Problems (Last Updated 09/02/18 @ 13:55 by Katheryn Mosqueda) TUCKER (acute kidney injury) (Acute) COVID-19 virus infection (Acute) Acute respiratory failure with hypoxia (Acute) This is a 54 years old male patient presented to the emergency room because of shortness of breath, found to have COVID-19 pneumonia and his pulse ox dropped while patient was in the ED, needed to be intubated and started on mechanical ventilation. #1 acute bilateral COVID-19 pneumonia: Remained on IV dexamethasone and remdesivir and IV heparin drip. Currently, he is not on IV antibiotics. Remained on mechanical ventilation on APRV with FiO2 of 40%. He is on sedation with IV fentanyl and propofol. Blood pressure stable, developed spikes of low-grade fever, heart rate improved, remained on IV Cardizem drip. Sputum culture showed no growth. Blood cultures showed no growth in 48 hours. Critical care and infectious disease On the case. Plan to continue same treatment. #2 acute hypoxic respiratory failure: Secondary to #1. Currently, on mechanical ventilation with minimal settings, oxygen requirement has been decreasing, he is down FiO2 of 40%, on APRV. Plan as above. #3 abnormal cardiac enzymes: Likely due to demand ischemia. EKG without acute segment changes. #4 acute kidney injury on top of stage III chronic kidney disease: In the setting of history of renal transplant. Status post hemodialysis x2. Today, BUN is 86 and creatinine is 2.85, it is getting better. CellCept and tacrolimus held. Patient is on IV Decadron. Nephrology on the case. #5 new onset atrial flutter/fibrillation: Remained on Cardizem drip. Heart rate is down to around 100, blood pressure stabilized. #6 hypertension: Currently, blood pressure stable. Antihypertensive medications held. #7 hyperlipidemia: Statins held. #8 DVT prophylaxis: He is on IV heparin drip. This note was generated with [employer] dictation software. It may contain incorrect words, spelling, and punctuation that were not noted in checking the note before signing. Inpatient E&M: [id number] [facility] L3
--- NOTE | 2020-01-22 10:26 | CASEMGMT ---
RN CM Note Participated in ICU interdisciplinary rounds. Pt remains intubated on ventilator, 40% oxygen. On Presedex, Cardizem and Fentanyl gtts. TF @ 60 ml/hr. DC Planning deferred at this time. DC PLAN: TBD. Janis YANESN RN ACM
--- NOTE | 2020-01-22 10:55 | PN.ID_ITS ---
Patient Problems: Active and Suspected Problems (Last Updated 09/02/18 @ 13:55 by Katheryn Mosqueda) TUCKER (acute kidney injury) (Acute) COVID-19 virus infection (Acute) Acute respiratory failure with hypoxia (Acute) Subjective: Awake on fever, low grade fever overnight, O2 improved, making urine - Physical Exam Vitals/I&O's: Vital Signs Temp Pulse Resp BP Pulse Ox 100.4 F H 112 H 29 H 146/84 H 93 01/22/20 07:00 01/22/20 10:10 01/22/20 10:10 01/22/20 07:00 01/22/20 10:10 Oxygen Flow Rate (L/min) 50 Oxygen Delivery Method Mechanical Ventilator Weight: 77 kg Body Mass Index (BMI) 26.0 Intake and Output for Last 24 Hours 01/20/20 01/21/20 01/22/20 23:59 23:59 23:59 Intake Total 1637.14 / 1669.54 2912.66 / 2951.56 853.12 / 853.12 Output Total 525 / 725 2155 / 2155 945 / 945 Balance 1112.14 / 944.54 757.66 / 796.56 -91.88 / -91.88 General: No apparent distress, - - eyes open Lungs: Diminished Cardiovascular: Regular rate, Regular Rhythm Abdomen: Soft, Non Tender, Non-Distended Skin: No rashes Microbiology Past 72 Hours 01/19/20 01:45 Sputum, Induced/Lukens Gram Stain - Final 01/19/20 01:45 Sputum, Induced/Lukens Respiratory Culture - Final 01/18/20 16:36 Blood Culture (Wb) - Left Forearm Blood Culture - Preliminary No growth in 48 hours. 01/18/20 16:25 Blood Culture (Wb) - Anticubital Left Blood Culture - Preliminary No growth in 48 hours. Laboratory Results 01/21/20 00:17: POC Glucose 281 H 01/21/20 10:55: Hep Bs Antigen Non-Reactive 01/21/20 10:55: Hep B Core Total Ab Pending 01/21/20 10:55: APTT 113.8 H* 01/21/20 21:35: APTT 61.4 H 01/22/20 03:40: WBC 17.9 H, RBC 3.51 L, Hgb 10.1 L, Hct 30.0 L, MCV 85.5, MCH 28.8, MCHC 33.7, RDW Std Deviation 41.2, RDW Coeff of Genaro 13.4, Plt Count 341, MPV 9.7 01/22/20 03:40: Sodium 132 L, Potassium 4.8, Chloride 98, Carbon Dioxide 27.0, Anion Gap 7, BUN 86 H, Creatinine 2.85 H, Estim Creat Clear Calc 28.67, Est GFR (MDRD) Af Amer 30 L, Est GFR (MDRD) Non-Af 25 L, BUN/Creatinine Ratio 30.2 H, Glucose 348 H, Calcium 8.2 L, Total Bilirubin 0.30, AST 35, ALT 42, Alkaline Phosphatase 71, Total Protein 6.3 L, Albumin 2.0 L, Globulin 4.3 H, Albumin/Globulin Ratio 0.5 L 01/22/20 03:40: APTT 149.7 H* 01/22/20 06:03: Specimen Type ART, Sample Site R Radial, pH 7.38, Bicarbonate Actual 25.3, Total CO2 27, Base Excess 0, O2 Saturation 90 L, O2 % 40, ABG pCO2 42.8, ABG pO2 60 L, Erlin Test Positive, Respiration Rate 12, O2 Delivery Device Adult Vent, Vent Mode BiLevel, POC Pressure Suppt 0 Current Medications Acetaminophen (Acetaminophen 325 Mg Tablet) 650 mg PO Q6H PRN PRN PRN Reason: Pain Score 1-10/Temp > 100.7 F Albuterol Sulfate (Albuterol 2.5 Mg/3 Ml Vial.Neb.) 2.5 mg INHALATION Q2H PRN PRN PRN Reason: WHEEZING Aspirin (Aspirin 81 Mg Tab.Chew) 81 mg GT DAILY [facility] Last Admin: 01/22/20 09:15 Dose: 81 mg Documented by: Chlorhexidine Gluconate (Chlorhexidine 15 Ml) 15 ml PO BID [facility] Last Admin: 01/22/20 09:11 Dose: 15 ml Documented by: Dexamethasone Sodium Phosphate (Dexamethasone 10 Mg/Ml Vial) 6 mg IV DAILY [facility] Stop: 01/27/20 10:01 Last Admin: 01/22/20 09:11 Dose: 6 mg Documented by: Heparin Sodium (Porcine) (Heparin Injection (Vial) 5,000 Unit/Ml Vial) 0 unit IV UD PRN; Protocol PRN Reason: dose adjustment Last Admin: 01/21/20 06:20 Dose: 5,000 unit Documented by: Propofol (Diprivan) 1,000 mg in 100 mls @ 4.62 mls/hr CONT INF .Q12H [facility]; Protocol Last Titration: 01/22/20 07:00 Dose: 30 mcg/kg/min, 13.9 mls/hr Documented by: Heparin Sodium/Dextrose () 25,000 units in 250 mls @ 11 mls/hr IV .[id number] [facility]; Protocol Last Titration: 01/22/20 07:00 Dose: 600 units/hr, 6 mls/hr Documented by: Fentanyl Citrate 1,000 mcg/ (Sodium Chloride) 100 mls @ 2.5 mls/hr CONT INF . Q40H [facility]; Protocol Last Titration: 01/22/20 07:00 Dose: 200 mcg/hr, 20 mls/hr Documented by: Sodium Chloride () 250 mls @ 15 mls/hr IV .[id number] PRN PRN Reason: Saline Flush Sodium Chloride () 250 mls @ 15 mls/hr IV .[id number] PRN PRN Reason: Additional IVPB Infusion Enteral Nutritional Formula (Vital Af 1.2 José Miguel Liquid) 1,000 mls @ 60 mls/hr GT .[id number] [facility] Last Admin: 01/22/20 03:40 Dose: 60 mls/hr Documented by: Diltiazem HCl 125 mg/ Dextrose 125 mls @ 5 mls/hr IV .Q25H [facility]; Protocol Last Titration: 01/22/20 07:00 Dose: 15 mg/hr, 15 mls/hr Documented by: Pantoprazole Sodium 40 mg/ (Sodium Chloride) 110 mls @ 330 mls/hr IV Q12 [facility] Last Admin: 01/22/20 09:15 Dose: 330 mls/hr Documented by: Insulin Glargine (Insulin Glargine 100 Units/Ml Pen) 10 units SC BID [facility] Last Admin: 01/22/20 09:17 Dose: 10 u Documented by: Ondansetron HCl (Ondansetron 4 Mg/2 Ml Vial) 4 mg IV Q8H PRN PRN PRN Reason: NAUSEA/VOMITING Senna/Docusate Sodium (Senna/Docusate Sodium 1 Tablet) 2 tablet PO BID [facility] Last Admin: 01/22/20 09:15 Dose: 2 tablet Documented by: Sodium Chloride (0.9% Saline Lock 10 Ml Syringe) 10 - 40 ml IV UD PRN PRN Reason: SALINE FLUSH Last Admin: 01/22/20 03:40 Dose: 10 ml Documented by: Medical Necessity - Tobacco Use Smoking Status: Former smoker Tobacco Use: Non-smoker Route of nutrition/ use of supplements: [] Nutritional Intake: [] IV Site: [] Fernando Catheter: [] - Assessment/Plan Antibiotics: [] Assessment/Plan: [] Active and Suspected Problems (Last Updated 09/02/18 @ 13:55 by Katheryn Mosqueda) COVID-19 virus infection (Acute) Acute respiratory failure with hypoxia (Acute) covid with hypoxia, resp failure, renal transplant - on hep gtt, dex and got 3 doses of remdesivir. D-dimer was 4.2. O2 improved but worsened TUCKER. HD yesterday. Will give another dose of remdesivir today and follow labs, 1L UOP already today. Holding bactrim. [place] level pending. Neph following. Will follow
[2020-01-22 11:32] LABS: Hepatitis B Core Ab Total Negative (Negative)
[2020-01-22] MEDS: Propofol 10MG/Ml 1,000 MG/100 ML Bottle 16.2 MG CONT INF ×2 (11:54→17:45)
[2020-01-22 12:42] LABS: Partial Thromboplast Time 36.7 Seconds (24.1-36.2)
--- NOTE | 2020-01-22 13:23 | PN.RENAL_ITS ---
Patient Problems: Active and Suspected Problems (Last Updated 09/02/18 @ 13:55 by Katheryn Mosqueda) TUCKER (acute kidney injury) (Acute) COVID-19 virus infection (Acute) Acute respiratory failure with hypoxia (Acute) Subjective: no new events remains intubated O2 requirements better than before no pressors urine output is fairly good remains on heparin drip due to high D Dimer and cardizem - Physical Exam Vitals/I&O's: Vital Signs Temp Pulse Resp BP Pulse Ox 100.4 F H 112 H 29 H 146/84 H 93 01/22/20 07:00 01/22/20 10:10 01/22/20 10:10 01/22/20 07:00 01/22/20 10:10 Oxygen Flow Rate (L/min) 50 Oxygen Delivery Method Mechanical Ventilator Weight: 77 kg Body Mass Index (BMI) 26.0 Intake and Output for Last 24 Hours 01/20/20 01/21/20 01/22/20 23:59 23:59 23:59 Intake Total 1637.14 / 1669.54 2912.66 / 2951.56 1096.82 / 1096.82 Output Total 525 / 725 2155 / 2155 1745 / 1745 Balance 1112.14 / 944.54 757.66 / 796.56 -648.18 / -648.18 General: No apparent distress HEENT: Atraumatic, PERRLA, EOMI, Normocephalic Neck: Supple, No JVD, Negative Carotid Bruits Lungs: Normal air movement Cardiovascular: Regular rate, No murmurs Abdomen: Bowel Sounds Present, Soft, Non Tender Extremities: No edema, Capillary Refill Less than 3 Seconds Skin: No rashes, No breakdown Psych/Mental Status: Restless Microbiology Past 72 Hours 01/19/20 01:45 Sputum, Induced/Lukens Gram Stain - Final 01/19/20 01:45 Sputum, Induced/Lukens Respiratory Culture - Final 01/18/20 16:36 Blood Culture (Wb) - Left Forearm Blood Culture - Preliminary No growth in 48 hours. 01/18/20 16:25 Blood Culture (Wb) - Anticubital Left Blood Culture - Preliminary No growth in 48 hours. Laboratory Results 01/21/20 10:55: Hep B Core Total Ab Negative 01/21/20 21:35: APTT 61.4 H 01/22/20 03:40: WBC 17.9 H, RBC 3.51 L, Hgb 10.1 L, Hct 30.0 L, MCV 85.5, MCH 28.8, MCHC 33.7, RDW Std Deviation 41.2, RDW Coeff of Genaro 13.4, Plt Count 341, MPV 9.7 01/22/20 03:40: Sodium 132 L, Potassium 4.8, Chloride 98, Carbon Dioxide 27.0, Anion Gap 7, BUN 86 H, Creatinine 2.85 H, Estim Creat Clear Calc 28.67, Est GFR (MDRD) Af Amer 30 L, Est GFR (MDRD) Non-Af 25 L, BUN/Creatinine Ratio 30.2 H, Glucose 348 H, Calcium 8.2 L, Total Bilirubin 0.30, AST 35, ALT 42, Alkaline Phosphatase 71, Total Protein 6.3 L, Albumin 2.0 L, Globulin 4.3 H, Albumin/G lobulin Ratio 0.5 L 01/22/20 03:40: APTT 149.7 H* 01/22/20 06:03: Specimen Type ART, Sample Site R Radial, pH 7.38, Bicarbonate Actual 25.3, Total CO2 27, Base Excess 0, O2 Saturation 90 L, O2 % 40, ABG pCO2 42.8, ABG pO2 60 L, Erlin Test Positive, Respiration Rate 12, O2 Delivery Device Adult Vent, Vent Mode BiLevel, POC Pressure Suppt 0 01/22/20 12:15: APTT 36.7 H Current Medications Acetaminophen (Acetaminophen 325 Mg Tablet) 650 mg PO Q6H PRN PRN PRN Reason: Pain Score 1-10/Temp > 100.7 F Albuterol Sulfate (Albuterol 2.5 Mg/3 Ml Vial.Neb.) 2.5 mg INHALATION Q2H PRN PRN PRN Reason: WHEEZING Aspirin (Aspirin 81 Mg Tab.Chew) 81 mg GT DAILY [facility] Last Admin: 01/22/20 09:15 Dose: 81 mg Documented by: Chlorhexidine Gluconate (Chlorhexidine 15 Ml) 15 ml PO BID [facility] Last Admin: 01/22/20 09:11 Dose: 15 ml Documented by: Dexamethasone Sodium Phosphate (Dexamethasone 10 Mg/Ml Vial) 6 mg IV DAILY [facility] Stop: 01/27/20 10:01 Last Admin: 01/22/20 09:11 Dose: 6 mg Documented by: Heparin Sodium (Porcine) (Heparin Injection (Vial) 5,000 Unit/Ml Vial) 0 unit IV UD PRN; Protocol PRN Reason: dose adjustment Last Admin: 01/21/20 06:20 Dose: 5,000 unit Documented by: Propofol (Diprivan) 1,000 mg in 100 mls @ 4.62 mls/hr CONT INF .Q12H [facility]; Protocol Last Admin: 01/22/20 11:54 Dose: 35 mcg/kg/min, 16.2 mls/hr Documented by: Heparin Sodium/Dextrose () 25,000 units in 250 mls @ 11 mls/hr IV .[id number] [facility]; Protocol Last Titration: 01/22/20 07:00 Dose: 600 units/hr, 6 mls/hr Documented by: Fentanyl Citrate 1,000 mcg/ (Sodium Chloride) 100 mls @ 2.5 mls/hr CONT INF .Q40H [facility]; Protocol Last Titration: 01/22/20 07:00 Dose: 200 mcg/hr, 20 mls/hr Documented by: Sodium Chloride () 250 mls @ 15 mls/hr IV .[id number] PRN PRN Reason: Saline Flush Sodium Chloride () 250 mls @ 15 mls/hr IV .[id number] PRN PRN Reason: Additional IVPB Infusion Enteral Nutritional Formula (Vital Af 1.2 José Miguel Liquid) 1,000 mls @ 60 mls/hr GT .[id number] [facility] Last Admin: 01/22/20 03:40 Dose: 60 mls/hr Documented by: Diltiazem HCl 125 mg/ Dextrose 125 mls @ 5 mls/hr IV .Q25H [facility]; Protocol Last Titration: 01/22/20 07:00 Dose: 15 mg/hr, 15 mls/hr Documented by: Pantoprazole Sodium 40 mg/ (Sodium Chloride) 110 mls @ 330 mls/hr IV Q12 [facility] Last Infusion: 01/22/20 11:42 Dose: Infused Documented by: Remdesivir 100 mg/ Sodium (Chloride) 250 mls @ 125 mls/hr IV DAILY [facility]; Protocol Stop: 01/23/20 11:59 Last Admin: 01/22/20 12:20 Dose: 125 mls/hr Documented by: Insulin Glargine (Insulin Glargine 100 Units/Ml Pen) 10 units SC BID [facility] Last Admin: 01/22/20 09:17 Dose: 10 u Documented by: Ondansetron HCl (Ondansetron 4 Mg/2 Ml Vial) 4 mg IV Q8H PRN PRN PRN Reason: NAUSEA/VOMITING Senna/Docusate Sodium (Senna/Docusate Sodium 1 Tablet) 2 tablet PO BID [facility] Last Admin: 01/22/20 09:15 Dose: 2 tablet Documented by: Sodium Chloride (0.9% Saline Lock 10 Ml Syringe) 10 - 40 ml IV UD PRN PRN Reason: SALINE FLUSH Last Admin: 01/22/20 03:40 Dose: 10 ml Documented by: Medical Necessity - Tobacco Use Smoking Status: Former smoker Tobacco Use: Non-smoker Assessment/Plan All Active Problems (Last Updated 09/02/18 @ 13:55 by Katheryn Mosqueda) TUCKER (acute kidney injury) (Acute) COVID-19 virus infection (Acute) Acute respiratory failure with hypoxia (Acute) Acute renal failure cKd stage III History of kidney transplant 15 years ago Covid pneumonia Sustained acute renal failure in hospital. WBC was high now better. still spiking low grade fevers. ID following D-dimer was high. On heparin drip empirically. Blood pressure is good now. He was told to hold CellCept at the time of ER visit and hence has not been on antimetabolite for almost 14 days now. He was taking tacrolimus up until 01/20/20. Tacrolimus levels have been sent. levels are still pending as of today Currently on Decadron 6 mg orally once a day which should cover as immunosuppression for now. Most likely acute renal failure is ATN related to sepsis with a differential of tacrolimus toxicity. Continue to hold tacrolimus and continue Decadron for now. Follow on tacrolimus levels urine output is significantly better last HD was yesterday BUN and Cr are ok hold off HD for today left arm radiocephalic AVF in place, good thrill today
[2020-01-22] MEDS: Heparin Injection (Vial) 5,000 UNIT/ML VIAL IV (13:46)
--- NOTE | 2020-01-22 19:15 | NURSING ---
When this RN came on shift all gtts were running, but gtts were not correct on APR. Propofol@40mcg, Fentanyl@200mcg, Cardizem@15mg, Heparin@800units.
[2020-01-22 20:56] LABS: Partial Thromboplast Time 97.1 Seconds (24.1-36.2)
[2020-01-22] MEDS: Propofol 10MG/Ml 1,000 MG/100 ML Bottle 18.5 MG CONT INF (21:40)
[2020-01-22] MEDS: Acetaminophen 650 MG/20 ML UDC GT (22:02)
[2020-01-23] VITALS (35 sets, daily range): BP systolic 97–157; BP diastolic 60–93; PULSE 56–147; RESP 11–36; TEMP 35.6–38; O2SAT 76–99
--- NOTE | 2020-01-23 00:01 | RAD_ITS ---
STUDY: X-RAY - ABDOMEN/PELVIS REASON FOR EXAM: Male, 54 years old. Orogastric tube placement TECHNIQUE: Single AP view of the abdomen / pelvis. COMPARISON: None. FINDINGS: Nasogastric tube extends to the mid gastric body, partially kinked back upon itself at the level of its proximal sidehole. Patchy airspace infiltration throughout bilateral lung bases. A small bowel gas pattern is unremarkable. Moderate gas and stool throughout the colon. No colonic wall thickening. No free intraperitoneal air. The visualized liver, spleen and kidneys are grossly normal in size and morphology. No intra-abdominal calcification. Normal soft tissue structures. Levoscoliosis of the thoracolumbar spine with multilevel degenerative change. RAD/Abdomen Single View (Portable) IMPRESSION: 1. Appropriate positioning of supportive devices 2. Normal bowel gas pattern Electronically Signed: Jonathan Aguilar MD at 1:57 EST Tel , Service support ,
[2020-01-23] MEDS: Propofol 10MG/Ml 1,000 MG/100 ML Bottle 16.2 MG CONT INF (02:45)
[2020-01-23 04:20] LABS: Hematocrit 33.9 % (40-54); Hemoglobin 10.8 g/dL (13.0-16.5); Mean Corp Hgb Conc 31.9 g/dL (32-36); Mean Corpuscular Hgb 28.6 pg (27.0-32.0); Mean Corpuscular Volume 89.7 fL (80-94); Mean Platelet Vol. 9.8 fl (6.2-12.0); Platelet Count 360 K/mm3 (150-450); RBC Distribution Width CV 13.4 % (11.6-14.6); RBC Distribution Width SD 43.6 fl (35.1-43.9); Red Blood Count 3.78 M/mm3 (4.6-6.2); White Blood Count 20.9 K/mm3 (4.4-11.0)
[2020-01-23] MEDS: TITRATION PARAMETER CHANGE 1 EACH IV (04:24)
[2020-01-23 04:33] LABS: ALB/GLOB Ratio 0.4 RATIO (0.9-2.4); AST(SGOT) 30 U/L (15-37); Alanine Aminotransfer ALT/SGPT 39 U/L (16-61); Albumin, Serum 2.1 g/dL (3.2-5.0); Alkaline Phosphatase 77 U/L (45-117); Anion Gap 6 (5-15); BUN 83 mg/dL (7-18); BUN/Creat Ratio 43.5 RATIO (10-20); Calcium,Total 8.9 mg/dL (8.5-10.1); Chloride 104 mmol/L (98-107); Creatinine, Serum 1.91 mg/dL (0.70-1.30); EST Glomerular Filtration Rate 39 mL/min (>60); Est Glom Filt Rate - Afr Amer 47 mL/min (>60); Estimated Creatinine Clearance 42.77 ml/min; Globulin 4.7 g/dL (2.2-4.2); Glucose 396 mg/dL (74-106); Potassium 5.6 mmol/L (3.5-5.1); Protein, Total 6.8 g/dL (6.4-8.2); Sodium Level 136 mmol/L (136-145)
[2020-01-23] MEDS: Heparin Injection (Vial) 5,000 UNIT/ML VIAL IV (04:33)
[2020-01-23] MEDS: 0.9% Saline Lock 10 ML Syringe IV (05:07)
[2020-01-23 05:25] LABS: Base Excess 0 mmol/L (-2 to +2); Bicarbonate 25.5 mmol/L (22-26); Blood Gas Specimen Type ART; FI02 50; Mode BIVENT; O2 Delivery Device Adult Vent; PEEP 12; PO2 67 mmHG (75-100); PS 5; RR 12; SITE R Radial; SO2 92 % (95-99); Total Carbon Dioxide 27 mmol/L; pCO2 47.5 mmHg (35-45); pH 7.34 (7.35-7.45)
[2020-01-23 06:22] LABS: Tacrolimus (FK506) 4.3 ng/mL (2.0-20.0)
[2020-01-23] MEDS: Insulin Lispro 100 UNIT/ML INSULN.PEN SC ×3 (06:30→17:05)
[2020-01-23 06:46] LABS: Bedside Glucose 377 mg/dL (70-110)
--- NOTE | 2020-01-23 07:45 | PCM.PN.REN ---
Patient Problems: Active and Suspected Problems (Last Updated 09/02/18 @ 13:55 by Ktaheryn Mosqueda) TUCKER (acute kidney injury) (Acute) COVID-19 virus infection (Acute) Acute respiratory failure with hypoxia (Acute) Subjective: No new events good Urine output - Physical Exam Vitals/I&O's: Vital Signs Temp Pulse Resp BP Pulse Ox 98.3 F 105 H 31 H 148/86 H 94 01/23/20 05:00 01/23/20 07:15 01/23/20 07:15 01/23/20 06:00 01/23/20 07:15 Oxygen Flow Rate (L/min) 50 Oxygen Delivery Method Mechanical Ventilator Weight: 77.6 kg Body Mass Index (BMI) 26.0 Intake and Output for Last 24 Hours 01/21/20 01/22/20 01/23/20 23:59 23:59 23:59 Intake Total 2912.66 / 2951.56 2789.07 / 2942.57 896.12 / 896.12 Output Total 2155 / 2155 4095 / 4095 700 / 700 Balance 757.66 / 796.56 -1305.93 / -1152.43 196.12 / 196.12 HEENT: Atraumatic, PERRLA, EOMI, Normocephalic Neck: Supple, No JVD, Negative Carotid Bruits Lungs: Clear to auscultation, Normal air movement Cardiovascular: Regular rate, No murmurs Abdomen: Bowel Sounds Present, Soft, Non Tender Extremities: No edema, Capillary Refill Less than 3 Seconds Skin: No rashes, No breakdown Musculoskeletal: No Tenderness to Palpation of Joints or Extremities Microbiology Past 72 Hours 01/19/20 01:45 Sputum, Induced/Lukens Gram Stain - Final 01/19/20 01:45 Sputum, Induced/Lukens Respiratory Culture - Final 01/18/20 16:36 Blood Culture (Wb) - Left Forearm Blood Culture - Preliminary No growth in 48 hours. 01/18/20 16:25 Blood Culture (Wb) - Anticubital Left Blood Culture - Preliminary No growth in 48 hours. Laboratory Results 01/20/20 09:30: Tacrolimus 4.3 01/21/20 10:55: Hep B Core Total Ab Negative 01/22/20 12:15: APTT 36.7 H 01/22/20 20:10: APTT 97.1 H* 01/23/20 04:10: WBC 20.9 H, RBC 3.78 L, Hgb 10.8 L, Hct 33.9 L, MCV 89.7, MCH 28.6, MCHC 31.9 L D, RDW Std Deviation 43.6, RDW Coeff of Genaro 13.4, Plt Count 360, MPV 9.8 01/23/20 04:10: Sodium 136, Potassium 5.6 H, Chloride 104, Carbon Dioxide 26.0, Anion Gap 6, BUN 83 H, Creatinine 1.91 H, Estim Creat Clear Calc 42.77, Est GFR (MDRD) Af Amer 47 L, Est GFR (MDRD) Non-Af 39 L, BUN/Creatinine Ratio 43.5 H, Glucose 396 H, Calcium 8.9, Total Bilirubin 0.30, AST 30, ALT 39, Alkaline Phosphatase 77, Total Protein 6.8, Albumin 2.1 L, Globulin 4.7 H, Albumin/Globulin Ratio 0.4 L 01/23/20 04:10: APTT 38.0 H 01/23/20 05:17: Specimen Type ART, Sample Site R Radial, pH 7.34 L, Bicarbonate Actual 25.5, Total CO2 27, Base Excess 0, O2 Saturation 92 L, O2 % 50, ABG pCO2 47.5 H, ABG pO2 67 L, Respiration Rate 12, O2 Delivery Device Adult Vent, Vent Mode BIVENT, POC PEEP 12, POC Pressure Suppt 5 01/23/20 06:28: POC Glucose 377 H Current Medications Acetaminophen (Acetaminophen 650 Mg/20 Ml Udc) 650 mg GT Q6H PRN PRN PRN Reason: Pain Score 1-10/Temp > 100.7 F Last Admin: 01/22/20 22:02 Dose: 650 mg Documented by: Albuterol Sulfate (Albuterol 2.5 Mg/3 Ml Vial.Neb.) 2.5 mg INHALATION Q2H PRN PRN PRN Reason: WHEEZING Aspirin (Aspirin 81 Mg Tab.Chew) 81 mg GT DAILY [facility] Last Admin: 01/22/20 09:15 Dose: 81 mg Documented by: Chlorhexidine Gluconate (Chlorhexidine 15 Ml) 15 ml PO BID [facility] Last Admin: 01/22/20 22:03 Dose: 15 ml Documented by: Dexamethasone Sodium Phosphate (Dexamethasone 10 Mg/Ml Vial) 6 mg IV DAILY [facility] Stop: 01/27/20 10:01 Last Admin: 01/22/20 09:11 Dose: 6 mg Documented by: Heparin Sodium (Porcine) (Heparin Injection (Vial) 5,000 Unit/Ml Vial) 0 unit IV UD PRN; Protocol PRN Reason: dose adjustment Last Admin: 01/23/20 04:33 Dose: 3,000 unit Documented by: Propofol (Diprivan) 1,000 mg in 100 mls @ 4.656 mls/hr CONT INF .Q12H [facility]; Protocol Last Titration: 01/23/20 06:00 Dose: 30 mcg/kg/min, 14 mls/hr Documented by: Heparin Sodium/Dextrose () 25,000 units in 250 mls @ 11 mls/hr IV .[id number] [facility]; Protocol Last Titration: 01/23/20 04:32 Dose: 800 units/hr, 8 mls/hr Documented by: Fentanyl Citrate 1,000 mcg/ (Sodium Chloride) 100 mls @ 2.5 mls/hr CONT INF .Q40H [facility]; Protocol Last Admin: 01/23/20 06:30 Dose: 200 mcg/hr, 20 mls/hr Documented by: Sodium Chloride () 250 mls @ 15 mls/hr IV .[id number] PRN PRN Reason: Saline Flush Sodium Chloride () 250 mls @ 15 mls/hr IV .[id number] PRN PRN Reason: Additional IVPB Infusion Enteral Nutritional Formula (Vital Af 1.2 José Miguel Liquid) 1,000 mls @ 60 mls/hr GT .[id number] [facility] Last Admin: 01/22/20 22:28 Dose: 60 mls/hr Documented by: Diltiazem HCl 125 mg/ Dextrose 125 mls @ 5 mls/hr IV .Q25H [facility]; Protocol Last Titration: 01/23/20 06:00 Dose: 15 mg/hr, 15 mls/hr Documented by: Pantoprazole Sodium 40 mg/ (Sodium Chloride) 110 mls @ 330 mls/hr IV Q12 [facility] Last Infusion: 01/22/20 23:00 Dose: Infused Documented by: Remdesivir 100 mg/ Sodium (Chloride) 250 mls @ 125 mls/hr IV DAILY [facility]; Protocol Stop: 01/23/20 11:59 Last Infusion: 01/22/20 14:40 Dose: Infused Documented by: Dexmedetomidine HCl 400 mcg/ (Sodium Chloride) 100 mls @ 9.7 mls/hr CONT INF .[id number] [facility]; Protocol Insulin Glargine (Insulin Glargine 100 Units/Ml Pen) 20 units SC BID [facility] Insulin Human Lispro (Insulin Lispro 100 Unit/Ml Insuln.Pen) 0 unit SC Q6 [facility]; Protocol Last Admin: 01/23/20 06:30 Dose: 14 units Documented by: Ondansetron HCl (Ondansetron 4 Mg/2 Ml Vial) 4 mg IV Q8H PRN PRN PRN Reason: NAUSEA/VOMITING Senna/Docusate Sodium (Senna/Docusate Sodium 1 Tablet) 2 tablet PO BID [facility] Last Admin: 01/22/20 22:02 Dose: 2 tablet Documented by: Sodium Chloride (0.9% Saline Lock 10 Ml Syringe) 10 - 40 ml IV UD PRN PRN Reason: SALINE FLUSH Last Admin: 01/23/20 05:07 Dose: 40 ml Documented by: Medical Necessity - Tobacco Use Smoking Status: Former smoker Tobacco Use: Non-smoker Assessment/Plan All Active Problems (Last Updated 09/02/18 @ 13:55 by Katheryn Mosqueda) TUCKER (acute kidney injury) (Acute) COVID-19 virus infection (Acute) Acute respiratory failure with hypoxia (Acute) Acute renal failure cKd stage III History of kidney transplant 15 years ago Covid pneumonia Sustained acute renal failure in hospital. WBC was high now better. ID following D-dimer was high. On heparin drip empirically. Blood pressure is good now. He was told to hold CellCept at the time of ER visit and hence has not been on antimetabolite for almost 14 days now. He was taking tacrolimus up until 01/20/20. levels are at 4.3 now Currently on Decadron 6 mg orally once a day which should cover as immunosuppression for now. 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
[2020-01-23] MEDS: Propofol 10MG/Ml 1,000 MG/100 ML Bottle 14 MG CONT INF (08:45)
--- NOTE | 2020-01-23 08:48 | PCM.PN.INT ---
Subjective: Patient did okay overnight. Urine output has been good. Patient did have a fever overnight. Nursing reports patient has been intermittently agitated. Patient has remained on Cardizem secondary to A. fib with RVR. Respiratory reports no significant concerns with secretions, but does have vent synchrony issues associated intermittently. General: Alert, Cooperative, No apparent distress - On my evaluation HEENT: Atraumatic, PERRLA, EOMI, Normocephalic, - - No scleral icterus or injection noted Oral: Moist Mucosa, No Gingival or Mucosal Lesions/ Ulcerations Neck: Supple, No JVD, No Nodes, Trachea Midline Lungs: No rhonchi, No wheeze, No rales, Diminished, - Cardiovascular: Normal S1, Normal S2, No murmurs, No rub noted, No Gallop, Tachycardic Abdomen: Bowel Sounds Present, Soft, Non Tender, Non-Distended Extremities: No clubbing, No cyanosis, Edema Skin: - - No change compared to previous Musculoskeletal: No Tenderness to Palpation of Joints or Extremities Lymphatic: No Cervical, Supraclavicular, or Inguinal Adenopathy Neurological: Cranial nerves II-XII grossly intact, Neuro grossly intact Psych/Mental Status: Anxious, Impulsive Vital Signs Temp Pulse Resp BP Pulse Ox 36.8 C 105 H 31 H 148/86 H 94 01/23/20 05:00 01/23/20 07:15 01/23/20 07:15 01/23/20 06:00 01/23/20 07:15 Oxygen Flow Rate (L/min) 50 Oxygen Delivery Method Mechanical Ventilator Weight: 77.6 kg Body Mass Index (BMI) 26.0 Intake and Output for Last 24 Hours 01/21/20 01/22/20 01/23/20 23:59 23:59 23:59 Intake Total 2912.66 / 2951.56 2789.07 / 2942.57 896.12 / 896.12 Output Total 2155 / 2155 4095 / 4095 700 / 700 Balance 757.66 / 796.56 -1305.93 / -1152.43 196.12 / 196.12 Labs (Last 48 Hours) 01/20/20 01/21/20 01/21/20 09:30 00:17 10:55 WBC RBC Hgb Hct MCV MCH MCHC RDW Std Deviation RDW Coeff of Genaro Plt Count MPV APTT Specimen Type Sample Site pH Bicarbonate Actual Total CO2 Base Excess O2 Saturation O2 % ABG pCO2 ABG pO2 Erlin Test Respiration Rate O2 Delivery Device Vent Mode POC PEEP POC Pressure Suppt Sodium Potassium Chloride Carbon Dioxide Anion Gap BUN Creatinine Estim Creat Clear Calc Est GFR (MDRD) Af Amer Est GFR (MDRD) Non-Af BUN/Creatinine Ratio Glucose Calcium Total Bilirubin AST ALT Alkaline Phosphatase Total Protein Albumin Globulin Albumin/Globulin Ratio Tacrolimus 4.3 Hep Bs Antigen Non-Reactive Hep B Core Total Ab POC Glucose 281 H 01/21/20 01/21/20 01/21/20 10:55 10:55 21:35 WBC RBC Hgb Hct MCV MCH MCHC RDW Std Deviation RDW Coeff of Genaro Plt Count MPV APTT 113.8 H* 61.4 H Specimen Type Sample Site pH Bicarbonate Actual Total CO2 Base Excess O2 Saturation O2 % ABG pCO2 ABG pO2 Erlin Test Respiration Rate O2 Delivery Device Vent Mode POC PEEP POC Pressure Suppt Sodium Potassium Chloride Carbon Dioxide Anion Gap BUN Creatinine Estim Creat Clear Calc Est GFR (MDRD) Af Amer Est GFR (MDRD) Non-Af BUN/Creatinine Ratio Glucose Calcium Total Bilirubin AST ALT Alkaline Phosphatase Total Protein Albumin Globulin Albumin/Globulin Ratio Tacrolimus Hep Bs Antigen Hep B Core Total Ab Negative POC Glucose 01/22/20 01/22/20 01/22/20 03:40 03:40 03:40 WBC 17.9 H RBC 3.51 L Hgb 10.1 L Hct 30.0 L MCV 85.5 MCH 28.8 MCHC 33.7 RDW Std Deviation 41.2 RDW Coeff of Genaro 13.4 Plt Count 341 MPV 9.7 APTT 149.7 H* Specimen Type Sample Site pH Bicarbonate Actual Total CO2 Base Excess O2 Saturation O2 % ABG pCO2 ABG pO2 Erlin Test Respiration Rate O2 Delivery Device Vent Mode POC PEEP POC Pressure Suppt Sodium 132 L Potassium 4.8 Chloride 98 Carbon Dioxide 27.0 Anion Gap 7 BUN 86 H Creatinine 2.85 H Estim Creat Clear Calc 28.67 Est GFR (MDRD) Af Amer 30 L Est GFR (MDRD) Non-Af 25 L BUN/Creatinine Ratio 30.2 H Glucose 348 H Calcium 8.2 L Total Bilirubin 0.30 AST 35 ALT 42 Alkaline Phosphatase 71 Total Protein 6.3 L Albumin 2.0 L Globulin 4.3 H Albumin/Globulin Ratio 0.5 L Tacrolimus Hep Bs Antigen Hep B Core Total Ab POC Glucose 01/22/20 01/22/20 01/22/20 06:03 12:15 20:10 WBC RBC Hgb Hct MCV MCH MCHC RDW Std Deviation RDW Coeff of Genaro Plt Count MPV APTT 36.7 H 97.1 H* Specimen Type ART Sample Site R Radial pH 7.38 Bicarbonate Actual 25.3 Total CO2 27 Base Excess 0 O2 Saturation 90 L O2 % 40 ABG pCO2 42.8 ABG pO2 60 L Erlin Test Positive Respiration Rate 12 O2 Delivery Device Adult Vent Vent Mode BiLevel POC PEEP POC Pressure Suppt 0 Sodium Potassium Chloride Carbon Dioxide Anion Gap BUN Creatinine Estim Creat Clear Calc Est GFR (MDRD) Af Amer Est GFR (MDRD) Non-Af BUN/Creatinine Ratio Glucose Calcium Total Bilirubin AST ALT Alkaline Phosphatase Total Protein Albumin Globulin Albumin/Globulin Ratio Tacrolimus Hep Bs Antigen Hep B Core Total Ab POC Glucose 01/23/20 01/23/20 01/23/20 04:10 04:10 04:10 WBC 20.9 H RBC 3.78 L Hgb 10.8 L Hct 33.9 L MCV 89.7 MCH 28.6 MCHC 31.9 L D RDW Std Deviation 43.6 RDW Coeff of Genaro 13.4 Plt Count 360 MPV 9.8 APTT 38.0 H Specimen Type Sample Site pH Bicarbonate Actual Total CO2 Base Excess O2 Saturation O2 % ABG pCO2 ABG pO2 Erlin Test Respiration Rate O2 Delivery Device Vent Mode POC PEEP POC Pressure Suppt Sodium 136 Potassium 5.6 H Chloride 104 Carbon Dioxide 26.0 Anion Gap 6 BUN 83 H Creatinine 1.91 H Estim Creat Clear Calc 42.77 Est GFR (MDRD) Af Amer 47 L Est GFR (MDRD) Non-Af 39 L BUN/Creatinine Ratio 43.5 H Glucose 396 H Calcium 8.9 Total Bilirubin 0.30 AST 30 ALT 39 Alkaline Phosphatase 77 Total Protein 6.8 Albumin 2.1 L Globulin 4.7 H Albumin/Globulin Ratio 0.4 L Tacrolimus Hep Bs Antigen Hep B Core Total Ab POC Glucose 01/23/20 01/23/20 05:17 06:28 WBC RBC Hgb Hct MCV MCH MCHC RDW Std Deviation RDW Coeff of Genaro Plt Count MPV APTT Specimen Type ART Sample Site R Radial pH 7.34 L Bicarbonate Actual 25.5 Total CO2 27 Base Excess 0 O2 Saturation 92 L O2 % 50 ABG pCO2 47.5 H ABG pO2 67 L Erlin Test Respiration Rate 12 O2 Delivery Device Adult Vent Vent Mode BIVENT POC PEEP 12 POC Pressure Suppt 5 Sodium Potassium Chloride Carbon Dioxide Anion Gap BUN Creatinine Estim Creat Clear Calc Est GFR (MDRD) Af Amer Est GFR (MDRD) Non-Af BUN/Creatinine Ratio Glucose Calcium Total Bilirubin AST ALT Alkaline Phosphatase Total Protein Albumin Globulin Albumin/Globulin Ratio Tacrolimus Hep Bs Antigen Hep B Core Total Ab POC Glucose 377 H Microbiology 01/19/20 01:45 Sputum, Induced/Lukens Gram Stain - Final 01/19/20 01:45 Sputum, Induced/Lukens Respiratory Culture - Final 01/18/20 16:36 Blood Culture (Wb) - Left Forearm Blood Culture - Preliminary No growth in 48 hours. 01/18/20 16:25 Blood Culture (Wb) - Anticubital Left Blood Culture - Preliminary No growth in 48 hours. Medical Necessity - Tobacco Use Smoking Status: Former smoker Tobacco Use: Non-smoker Assessment/Plan All Active Problems (Last Updated 09/02/18 @ 13:55 by Katheryn Mosqueda) TUCKER (acute kidney injury) (Acute) COVID-19 virus infection (Acute) Acute respiratory failure with hypoxia (Acute) RECOMMENDATIONS: 1. Transition to Precedex for sedation 2. Continue PPI 3. Agree with empiric antibiotics and dexamethasone 4. H&H stable. Okay to continue heparin drip for now 5. Wean oxygen as tolerated 6. Possibly transition to assist control in the next 24 to 48 hours if able to control sedation IMPRESSIONS: 1. Acute hypoxic respiratory failure secondary to COVID-19 bilateral pneumonia Patient with significant bilateral infiltrates noted on chest x-ray. Patient reportedly is 2 to 3 weeks out from initial positive testing. Unclear if findings on x-ray are new or persisting from initial inflammation. Infectious diseases following. Defer antibiotics/Remdesivir to them. Patient was transitioned to APRV to help with synchrony. However, will attempt transition to Precedex as patient still requires significant sedation and it is unclear if he will be able to have a spontaneous breathing trial otherwise. 2. Chronic kidney disease stage III to stage IV status post transplant Patient was off of CellCept secondary to COVID-19 diagnosis. Nephrology has been consulted. Await recommendations. Patient has had immunosuppression held. Patient unable to be transferred to a tertiary center secondary to bed availability. No plans for dialysis. Renal function appears to be at his baseline. 3. Hyperlipidemia/hypertension/elevated troponin/protracted hypoxia Complicates care, management, recovery and prognosis. Patient's blood pressure is marginal at this time, but adequate. We will need to monitor for rebound given discontinuation of Cardizem and clonidine. Nephrology has been consulted. Do anticipate an element of elevated troponin given systemic hypoxia. Patient does not have any findings on telemetry to suggest acute cardio intervention. Patient may require an echocardiogram for evaluation in the future. Decrease volume by dialysis. TIME: 40 minutes critical care time spent addressing patient's acute hypoxic respiratory failure, acute kidney injury, review of all data and collaboration with care team (6 AM to 7 AM) [id number] Critical care first hour
[2020-01-23] MEDS: Aspirin 81 MG TAB.CHEW GT (10:14)
[2020-01-23] MEDS: Chlorhexidine 15 ML PO ×2 (10:14→23:00)
[2020-01-23] MEDS: Senna/Docusate Sodium 1 Tablet 2 TABLET PO ×2 (10:14→22:10)
[2020-01-23] MEDS: dexAMETHasone 10 MG/ML Vial 6 MG IV (10:14)
[2020-01-23 10:40] LABS: Partial Thromboplast Time 85.9 Seconds (24.1-36.2)
--- NOTE | 2020-01-23 10:41 | PCM.PROGNOTE ---
Patient Problems: Active and Suspected Problems (Last Updated 09/02/18 @ 13:55 by Katheryn Mosqueda) TUCKER (acute kidney injury) (Acute) COVID-19 virus infection (Acute) Acute respiratory failure with hypoxia (Acute) Subjective: Chief complaint: Follow-up after admission for acute COVID-19 pneumonia and acute hypoxic respiratory failure, atrial flutter with RVR, acute kidney injury on top of stage III chronic kidney disease. Patient seen and examined. No acute events overnight. This morning, he is sleepy, on sedation, not arousable. Still having spikes of fever. Remains on IV Cardizem drip for A. fib with RVR. Remained on mechanical ventilation, FiO2 of 50%. Plan to start patient on IV Precedex drip for sedation. - Physical Exam Vitals/I&O's: Vital Signs Temp Pulse Resp BP Pulse Ox 100.4 F H 77 12 101/63 95 01/23/20 10:00 01/23/20 10:00 01/23/20 10:00 01/23/20 10:00 01/23/20 10:00 Oxygen Flow Rate (L/min) 50 Oxygen Delivery Method Mechanical Ventilator Weight: 171 lb 1.259 oz Body Mass Index (BMI) 26.0 Intake and Output for Last 24 Hours 01/21/20 01/22/20 01/23/20 23:59 23:59 23:59 Intake Total 2912.66 / 2951.56 2789.07 / 2942.57 1292.85 / 1292.85 Output Total 2155 / 2155 4095 / 4095 1500 / 1500 Balance 757.66 / 796.56 -1305.93 / -1152.43 -207.15 / -207.15 General: - - Intubated, sedated, on mechanical ventilation. HEENT: Atraumatic, PERRLA, Normocephalic Oral: Moist Mucosa, No Gingival or Mucosal Lesions/ Ulcerations Neck: Supple, No JVD, Negative Carotid Bruits, Trachea Midline, Thyroid Normal Size and Texture Lungs: Clear to auscultation, No wheeze, No rales, Diminished, Rhonchi Cardiovascular: Normal S1, Normal S2, PMI Normal, Irregular Rate Abdomen: Bowel Sounds Present, Soft, Non Tender, Non-Distended, No Hepato-splenomegaly, Obese Extremities: No clubbing, No cyanosis, No edema Skin: No rashes, No breakdown Lymphatic: No Cervical, Supraclavicular, or Inguinal Adenopathy Neurological: Cranial nerves II-XII grossly intact, Neuro grossly intact Psych/Mental Status: - - Unable to assess, patient is sedated. Microbiology Past 72 Hours 01/19/20 01:45 Sputum, Induced/Lukens Gram Stain - Final 01/19/20 01:45 Sputum, Induced/Lukens Respiratory Culture - Final 01/18/20 16:36 Blood Culture (Wb) - Left Forearm Blood Culture - Preliminary No growth in 48 hours. 01/18/20 16:25 Blood Culture (Wb) - Anticubital Left Blood Culture - Preliminary No growth in 48 hours. Laboratory Results 01/20/20 09:30: Tacrolimus 4.3 01/21/20 10:55: Hep B Core Total Ab Negative 01/22/20 12:15: APTT 36.7 H 01/22/20 20:10: APTT 97.1 H* 01/23/20 04:10: WBC 20.9 H, RBC 3.78 L, Hgb 10.8 L, Hct 33.9 L, MCV 89.7, MCH 28.6, MCHC 31.9 L D, RDW Std Deviation 43.6, RDW Coeff of Genaro 13.4, Plt Count 360, MPV 9.8 01/23/20 04:10: Sodium 136, Potassium 5.6 H, Chloride 104, Carbon Dioxide 26.0, Anion Gap 6, BUN 83 H, Creatinine 1.91 H, Estim Creat Clear Calc 42.77, Est GFR (MDRD) Af Amer 47 L, Est GFR (MDRD) Non-Af 39 L, BUN/Creatinine Ratio 43.5 H, Glucose 396 H, Calcium 8.9, Total Bilirubin 0.30, AST 30, ALT 39, Alkaline Phosphatase 77, Total Protein 6.8, Albumin 2.1 L, Globulin 4.7 H, Albumin/Globulin Ratio 0.4 L 01/23/20 04:10: APTT 38.0 H 01/23/20 05:17: Specimen Type ART, Sample Site R Radial, pH 7.34 L, Bicarbonate Actual 25.5, Total CO2 27, Base Excess 0, O2 Saturation 92 L, O2 % 50, ABG pCO2 47.5 H, ABG pO2 67 L, Respiration Rate 12, O2 Delivery Device Adult Vent, Vent Mode BIVENT, POC PEEP 12, POC Pressure Suppt 5 01/23/20 06:28: POC Glucose 377 H 01/23/20 10:20: APTT 85.9 H Current Medications Acetaminophen (Acetaminophen 650 Mg/20 Ml Udc) 650 mg GT Q6H PRN PRN PRN Reason: Pain Score 1-10/Temp > 100.7 F Last Admin: 01/22/20 22:02 Dose: 650 mg Documented by: Albuterol Sulfate (Albuterol 2.5 Mg/3 Ml Vial.Neb.) 2.5 mg INHALATION Q2H PRN PRN PRN Reason: WHEEZING Aspirin (Aspirin 81 Mg Tab.Chew) 81 mg GT DAILY [facility] Last Admin: 01/23/20 10:14 Dose: 81 mg Documented by: Chlorhexidine Gluconate (Chlorhexidine 15 Ml) 15 ml PO BID [facility] Last Admin: 01/23/20 10:14 Dose: 15 ml Documented by: Dexamethasone Sodium Phosphate (Dexamethasone 10 Mg/Ml Vial) 6 mg IV DAILY [facility] Stop: 01/27/20 10:01 Last Admin: 01/23/20 10:14 Dose: 6 mg Documented by: Heparin Sodium (Porcine) (Heparin Injection (Vial) 5,000 Unit/Ml Vial) 0 unit IV UD PRN; Protocol PRN Reason: dose adjustment Last Admin: 01/23/20 04:33 Dose: 3,000 unit Documented by: Propofol (Diprivan) 1,000 mg in 100 mls @ 4.656 mls/hr CONT INF .Q12H [facility]; Protocol Last Titration: 01/23/20 09:30 Dose: 20 mcg/kg/min, 9.3 mls/hr Documented by: Heparin Sodium/Dextrose () 25,000 units in 250 mls @ 11 mls/hr IV .[id number] [facility]; Protocol Last Titration: 01/23/20 04:32 Dose: 800 units/hr, 8 mls/hr Documented by: Fentanyl Citrate 1,000 mcg/ (Sodium Chloride) 100 mls @ 2.5 mls/hr CONT INF .Q40H [facility]; Protocol Last Titration: 01/23/20 09:00 Dose: 200 mcg/hr, 20 mls/hr Documented by: Sodium Chloride () 250 mls @ 15 mls/hr IV .[id number] PRN PRN Reason: Saline Flush Sodium Chloride () 250 mls @ 15 mls/hr IV .[id number] PRN PRN Reason: Additional IVPB Infusion Enteral Nutritional Formula (Vital Af 1.2 José Miguel Liquid) 1,000 mls @ 60 mls/hr GT .[id number] [facility] Last Admin: 01/22/20 22:28 Dose: 60 mls/hr Documented by: Diltiazem HCl 125 mg/ Dextrose 125 mls @ 5 mls/hr IV .Q25H [facility]; Protocol Last Titration: 01/23/20 09:00 Dose: 15 mg/hr, 15 mls/hr Documented by: Pantoprazole Sodium 40 mg/ (Sodium Chloride) 110 mls @ 330 mls/hr IV Q12 [facility] Last Infusion: 01/22/20 23:00 Dose: Infused Documented by: Remdesivir 100 mg/ Sodium (Chloride) 250 mls @ 125 mls/hr IV DAILY [facility]; Protocol Stop: 01/23/20 11:59 Last Infusion: 01/22/20 14:40 Dose: Infused Documented by: Dexmedetomidine HCl 400 mcg/ (Sodium Chloride) 100 mls @ 9.7 mls/hr CONT INF .[id number] [facility]; Protocol Last Titration: 01/23/20 09:44 Dose: 0.8 mcg/kg/hr, 15.5 mls/hr Documented by: Insulin Glargine (Insulin Glargine 100 Units/Ml Pen) 20 units SC BID [facility] Last Admin: 01/23/20 10:14 Dose: 20 u Documented by: Insulin Human Lispro (Insulin Lispro 100 Unit/Ml Insuln.Pen) 0 unit SC Q6 [facility]; Protocol Last Admin: 01/23/20 06:30 Dose: 14 units Documented by: Ondansetron HCl (Ondansetron 4 Mg/2 Ml Vial) 4 mg IV Q8H PRN PRN PRN Reason: NAUSEA/VOMITING Senna/Docusate Sodium (Senna/Docusate Sodium 1 Tablet) 2 tablet PO BID [facility] Last Admin: 01/23/20 10:14 Dose: 2 tablet Documented by: Sodium Chloride (0.9% Saline Lock 10 Ml Syringe) 10 - 40 ml IV UD PRN PRN Reason: SALINE FLUSH Last Admin: 01/23/20 05:07 Dose: 40 ml Documented by: Medical Necessity - Tobacco Use Smoking Status: Former smoker Tobacco Use: Non-smoker Assessment/Plan All Active Problems (Last Updated 09/02/18 @ 13:55 by Katheryn Mosqueda) TUCKER (acute kidney injury) (Acute) COVID-19 virus infection (Acute) Acute respiratory failure with hypoxia (Acute) This is a 54 years old male patient presented to the emergency room because of shortness of breath, found to have COVID-19 pneumonia and his pulse ox dropped while patient was in the ED, needed to be intubated and started on mechanical ventilation. After admission, he developed TUCKER on CKD requiring hemodialysis as well as new onset A. fib/flutter with RVR. #1 acute bilateral COVID-19 pneumonia: Remained on IV dexamethasone and remdesivir and IV heparin drip. Currently, he is not on IV antibiotics. Remained on mechanical ventilation on APRV with FiO2 of 50%. He is on sedation with IV fentanyl and propofol, plan to switch him to IV Precedex. Blood pressure stable, developed spikes of low-grade fever, heart rate improved, remained on IV Cardizem drip. Sputum culture showed no growth. Blood cultures showed no growth in 48 hours. Critical care and infectious disease On the case. Plan to continue same treatment. #2 acute hypoxic respiratory failure: Secondary to #1. Currently, on mechanical ventilation with minimal settings, oxygen requirement has been decreasing, he is down FiO2 of 50%, on APRV. Plan to switch him on IV Precedex for sedation. #3 abnormal cardiac enzymes: Likely due to demand ischemia. EKG without acute segment changes. #4 acute kidney injury on top of stage III chronic kidney disease: In the setting of history of renal transplant. Status post hemodialysis x2. Today, BUN is 83 and creatinine is 1.91, back to his baseline. CellCept and tacrolimus held which may resume today if okay with nephrology. Patient is on IV Decadron. Nephrology on the case. #5 new onset atrial flutter/fibrillation: Remained on Cardizem drip. Heart rate is down to around 80s, blood pressure stabilized. #6 hypertension: Currently, blood pressure stable. Antihypertensive medications held. #7 hyperlipidemia: Statins held. #8 DVT prophylaxis: Remained on IV heparin drip. This note was generated with Dragon dictation software. It may contain incorrect words, spelling, and punctuation that were not noted in checking the note before signing. Inpatient E&M: 21330 Subs Hosp L3
[2020-01-23] MEDS: Vital AF 1.2 Cal Liquid 1,000 ML 60 ML GT (13:22)
[2020-01-23 14:06] LABS: Bedside Glucose 342 mg/dL (70-110)
--- NOTE | 2020-01-23 15:33 | PN.ID_ITS ---
Patient Problems: Active and Suspected Problems (Last Updated 09/02/18 @ 13:55 by Katheryn Mosqueda) TUCKER (acute kidney injury) (Acute) COVID-19 virus infection (Acute) Acute respiratory failure with hypoxia (Acute) Subjective: Awake on vent, low grade fever - Physical Exam Vitals/I&O's: Vital Signs Temp Pulse Resp BP Pulse Ox 99.9 F H 76 19 H 132/64 H 76 01/23/20 15:00 01/23/20 15:00 01/23/20 15:00 01/23/20 15:00 01/23/20 15:00 Oxygen Flow Rate (L/min) 50 Oxygen Delivery Method Mechanical Ventilator Weight: 77.6 kg Body Mass Index (BMI) 26.0 Intake and Output for Last 24 Hours 01/21/20 01/22/20 01/23/20 23:59 23:59 23:59 Intake Total 2912.66 / 2951.56 2789.07 / 2942.57 2109.31 / 2109.31 Output Total 2155 / 2155 4095 / 4095 2400 / 2400 Balance 757.66 / 796.56 -1305.93 / -1152.43 -290.69 / -290.69 General: Alert, No apparent distress Lungs: Clear to auscultation, Diminished Cardiovascular: Regular rate, Regular Rhythm Abdomen: Soft, Non Tender, Non-Distended Skin: No rashes Microbiology Past 72 Hours 01/19/20 01:45 Sputum, Induced/Lukens Gram Stain - Final 01/19/20 01:45 Sputum, Induced/Lukens Respiratory Culture - Final 01/18/20 16:36 Blood Culture (Wb) - Left Forearm Blood Culture - Preliminary No growth in 48 hours. 01/18/20 16:25 Blood Culture (Wb) - Anticubital Left Blood Culture - Preliminary No growth in 48 hours. Laboratory Results 01/20/20 09:30: Tacrolimus 4.3 01/22/20 20:10: APTT 97.1 H* 01/23/20 04:10: WBC 20.9 H, RBC 3.78 L, Hgb 10.8 L, Hct 33.9 L, MCV 89.7, MCH 28.6, MCHC 31.9 L D, RDW Std Deviation 43.6, RDW Coeff of Genaro 13.4, Plt Count 360, MPV 9.8 01/23/20 04:10: Sodium 136, Potassium 5.6 H, Chloride 104, Carbon Dioxide 26.0, Anion Gap 6, BUN 83 H, Creatinine 1.91 H, Estim Creat Clear Calc 42.77, Est GFR (MDRD) Af Amer 47 L, Est GFR (MDRD) Non-Af 39 L, BUN/Creatinine Ratio 43.5 H, Glucose 396 H, Calcium 8.9, Total Bilirubin 0.30, AST 30, ALT 39, Alkaline Phosphatase 77, Total Protein 6.8, Albumin 2.1 L, Globulin 4.7 H, Albumin/Globulin Ratio 0.4 L 01/23/20 04:10: APTT 38.0 H 01/23/20 05:17: Specimen Type ART, Sample Site R Radial, pH 7.34 L, Bicarbonate Actual 25.5, Total CO2 27, Base Excess 0, O2 Saturation 92 L, O2 % 50, ABG pCO2 47.5 H, ABG pO2 67 L, Respiration Rate 12, O2 Delivery Device Adult Vent, Vent Mode BIVENT, POC PEEP 12, POC Pressure Suppt 5 01/23/20 06:28: POC Glucose 377 H 01/23/20 10:20: APTT 85.9 H 01/23/20 13:17: POC Glucose 342 H Current Medications Acetaminophen (Acetaminophen 650 Mg/20 Ml Udc) 650 mg GT Q6H PRN PRN PRN Reason: Pain Score 1-10/Temp > 100.7 F Last Admin: 01/22/20 22:02 Dose: 650 mg Documented by: Albuterol Sulfate (Albuterol 2.5 Mg/3 Ml Vial.Neb.) 2.5 mg INHALATION Q2H PRN PRN PRN Reason: WHEEZING Aspirin (Aspirin 81 Mg Tab.Chew) 81 mg GT DAILY [facility] Last Admin: 01/23/20 10:14 Dose: 81 mg Documented by: Chlorhexidine Gluconate (Chlorhexidine 15 Ml) 15 ml PO BID [facility] Last Admin: 01/23/20 10:14 Dose: 15 ml Documented by: Dexamethasone Sodium Phosphate (Dexamethasone 10 Mg/Ml Vial) 6 mg IV DAILY [facility] Stop: 01/27/20 10:01 Last Admin: 01/23/20 10:14 Dose: 6 mg Documented by: Heparin Sodium (Porcine) (Heparin Injection (Vial) 5,000 Unit/Ml Vial) 0 unit IV UD PRN; Protocol PRN Reason: dose adjustment Last Admin: 01/23/20 04:33 Dose: 3,000 unit Documented by: Propofol (Diprivan) 1,000 mg in 100 mls @ 4.656 mls/hr CONT INF .Q12H [facility]; Protocol Last Titration: 01/23/20 13:24 Dose: Infused Documented by: Heparin Sodium/Dextrose () 25,000 units in 250 mls @ 11 mls/hr IV .[id number] [facility]; Protocol Last Titration: 01/23/20 11:00 Dose: 700 units/hr, 7 mls/hr Documented by: Fentanyl Citrate 1,000 mcg/ (Sodium Chloride) 100 mls @ 2.5 mls/hr CONT INF .Q40H [facility]; Protocol Last Titration: 01/23/20 15:00 Dose: 200 mcg/hr, 20 mls/hr Documented by: Sodium Chloride () 250 mls @ 15 mls/hr IV .[id number] PRN PRN Reason: Saline Flush Sodium Chloride () 250 mls @ 15 mls/hr IV .[id number] PRN PRN Reason: Additional IVPB Infusion Enteral Nutritional Formula (Vital Af 1.2 José Miguel Liquid) 1,000 mls @ 60 mls/hr GT .[id number] [facility] Last Admin: 01/23/20 13:22 Dose: 60 mls/hr Documented by: Diltiazem HCl 125 mg/ Dextrose 125 mls @ 5 mls/hr IV .Q25H [facility]; Protocol Last Titration: 01/23/20 15:00 Dose: 15 mg/hr, 15 mls/hr Documented by: Pantoprazole Sodium 40 mg/ (Sodium Chloride) 110 mls @ 330 mls/hr IV Q12 [facility] Last Infusion: 01/23/20 11:09 Dose: Infused Documented by: Dexmedetomidine HCl 400 mcg/ (Sodium Chloride) 100 mls @ 9.7 mls/hr CONT INF .[id number] [facility]; Protocol Last Titration: 01/23/20 15:00 Dose: 1.5 mcg/kg/hr, 29.1 mls/hr Documented by: Insulin Glargine (Insulin Glargine 100 Units/Ml Pen) 20 units SC BID [facility] Last Admin: 01/23/20 10:14 Dose: 20 u Documented by: Insulin Human Lispro (Insulin Lispro 100 Unit/Ml Insuln.Pen) 0 unit SC Q6 [facility]; Protocol Last Admin: 01/23/20 13:18 Dose: 12 units Documented by: Ondansetron HCl (Ondansetron 4 Mg/2 Ml Vial) 4 mg IV Q8H PRN PRN PRN Reason: NAUSEA/VOMITING Senna/Docusate Sodium (Senna/Docusate Sodium 1 Tablet) 2 tablet PO BID [facility] Last Admin: 01/23/20 10:14 Dose: 2 tablet Documented by: Sodium Chloride (0.9% Saline Lock 10 Ml Syringe) 10 - 40 ml IV UD PRN PRN Reason: SALINE FLUSH Last Admin: 01/23/20 05:07 Dose: 40 ml Documented by: Medical Necessity - Tobacco Use Smoking Status: Former smoker Tobacco Use: Non-smoker Route of nutrition/ use of supplements: [] Nutritional Intake: [] IV Site: [] Fernando Catheter: [] - Assessment/Plan Antibiotics: [] Assessment/Plan: [] Active and Suspected Problems (Last Updated 09/02/18 @ 13:55 by Katheryn Mosqueda) COVID-19 virus infection (Acute) Acute respiratory failure with hypoxia (Acute) covid with hypoxia, resp failure, renal transplant - on hep gtt, dex, and completed 5 doses of remdesivir today 01/22. D-dimer was 4.2. O2 improved and TUCKER resolved. [place] level was ok. Neph following. Will follow
[2020-01-23] MEDS: HEPARIN/D5w 25,000 UNITS 25,000 UNITS/250 ML IV.SOLN. 7 UNITS IV (16:02)
[2020-01-23 17:21] LABS: Bedside Glucose 314 mg/dL (70-110)
[2020-01-23 18:24] LABS: Partial Thromboplast Time 71.7 Seconds (24.1-36.2)
[2020-01-23] MEDS: Dexmedetomidine 1,000 mcg in 0.9% NS 240 mL 29.1 MCG CONT INF (20:00)
[2020-01-23 22:25] LABS: Bedside Glucose 270 mg/dL (70-110)
[2020-01-24] VITALS (35 sets, daily range): BP systolic 121–173; BP diastolic 81–109; PULSE 64–124; RESP 12–40; TEMP 36.1–38.8; O2SAT 87–100
[2020-01-24] MEDS: Insulin Lispro 100 UNIT/ML INSULN.PEN SC ×2 (00:21→18:25)
[2020-01-24 00:45] LABS: Partial Thromboplast Time 53.1 Seconds (24.1-36.2)
[2020-01-24 01:01] LABS: Bedside Glucose 230 mg/dL (70-110)
[2020-01-24] MEDS: Dexmedetomidine 1,000 mcg in 0.9% NS 240 mL 29.1 MCG CONT INF ×2 (05:50→14:56)
[2020-01-24 06:26] LABS: Hematocrit 31.2 % (40-54); Hemoglobin 9.9 g/dL (13.0-16.5); Mean Corp Hgb Conc 31.7 g/dL (32-36); Mean Corpuscular Hgb 28.6 pg (27.0-32.0); Mean Corpuscular Volume 90.2 fL (80-94); Mean Platelet Vol. 9.3 fl (6.2-12.0); POSITIVE COUNT YES; POSITIVE MORPHOLOGY YES; Platelet Count 321 K/mm3 (150-450); RBC Distribution Width CV 13.6 % (11.6-14.6); RBC Distribution Width SD 44.3 fl (35.1-43.9); Red Blood Count 3.46 M/mm3 (4.6-6.2); White Blood Count 18.5 K/mm3 (4.4-11.0)
[2020-01-24 06:40] LABS: Partial Thromboplast Time 46.1 Seconds (24.1-36.2)
[2020-01-24 06:46] LABS: Differential Indicated MANUAL DIFF; Total Cells Counted 100 (MANUAL DIFF)
[2020-01-24 06:48] LABS: Anion Gap 2 (5-15); BUN 81 mg/dL (7-18); BUN/Creat Ratio 54.7 RATIO (10-20); Calcium,Total 8.9 mg/dL (8.5-10.1); Chloride 115 mmol/L (98-107); Creatinine, Serum 1.48 mg/dL (0.70-1.30); EST Glomerular Filtration Rate 53 mL/min (>60); Est Glom Filt Rate - Afr Amer 64 mL/min (>60); Glucose 75 mg/dL (74-106); Potassium 5.3 mmol/L (3.5-5.1); Sodium Level 146 mmol/L (136-145)
[2020-01-24 06:51] LABS: Lymphocyte 3 % (19-41); Metamyelocyte 2 % (0-1); Monocyte 1 % (0-10); Myelocyte 3 (0-0); Neutrophil-Band 4 % (0-5); Neutrophil-Segmented 86 % (47-70); Promyelocyte 1 (0-0)
[2020-01-24 06:52] LABS: Absolute Neutrophil Count 16.7 X10^3/uL (2.0-7.7); Neutrophil # 16.67 X10^3/uL (2.7-7.7)
[2020-01-24 06:53] LABS: Absolute Lymphocyte Count 0.56 X10^3/uL (0.83-4.51); Lymphocyte # 0.56 X10^3/ul (4.0); Platelet Estimate ADEQUATE (ADEQ)
[2020-01-24 06:54] LABS: Red Cell Morphology NORM C+C NORMAL (NORM C&C)
[2020-01-24] MEDS: Heparin Injection (Vial) 5,000 UNIT/ML VIAL IV ×2 (08:14→14:08)
[2020-01-24 08:15] LABS: Allen Test Positive; Base Excess 5 mmol/L (-2 to +2); Blood Gas Specimen Type ART; FI02 50; Mode CPAP/PS; O2 Delivery Device Adult Vent; PEEP 5; PO2 51 mmHG (75-100); PS 5; SITE R Radial; SO2 89 % (95-99); Total Carbon Dioxide 29 mmol/L; pCO2 35.9 mmHg (35-45)
--- NOTE | 2020-01-24 08:16 | PN_ITS ---
Subjective: Patient did okay overnight. Patient has been tolerating tube feeds until he pulled off the OG. This had to be replaced and then patient was placed on a spontaneous breathing trial, so tube feeds have been off for some time. Patient is not reporting any pain or dyspnea. Patient was placed on a spontaneous breathing trial late and this is ongoing at the time of this documentation. General: Alert, Cooperative, No apparent distress - Better vent synchrony. HEENT: Atraumatic, PERRLA, EOMI, Normocephalic, - - No scleral icterus or injection noted Oral: Moist Mucosa, No Gingival or Mucosal Lesions/ Ulcerations Neck: Supple, No JVD, No Nodes, Trachea Midline Lungs: No rhonchi, No wheeze, No rales, Diminished, - - Symmetric expansion Cardiovascular: Normal S1, Normal S2, No murmurs, Irregular Rate, No rub noted, No Gallop Abdomen: Bowel Sounds Present, Soft, Non Tender, Non-Distended Extremities: No clubbing, No cyanosis Skin: No rashes, No breakdown Musculoskeletal: No Tenderness to Palpation of Joints or Extremities Lymphatic: No Cervical, Supraclavicular, or Inguinal Adenopathy Neurological: Cranial nerves II-XII grossly intact, Neuro grossly intact Psych/Mental Status: Impulsive, Restless Vital Signs Temp Pulse Resp BP Pulse Ox 37.0 C 86 28 H 133/89 H 92 01/24/20 04:00 01/24/20 06:59 01/24/20 06:59 01/24/20 06:00 01/24/20 06:59 Oxygen Flow Rate (L/min) 50 Oxygen Delivery Method Mechanical Ventilator Weight: 76.3 kg Body Mass Index (BMI) 26.0 Intake and Output for Last 24 Hours 01/22/20 01/23/20 01/24/20 23:59 23:59 23:59 Intake Total 2789.07 / 2942.57 3058.10 / 3058.10 495.67 / 495.67 Output Total 4095 / 4095 4150 / 4400 900 / 900 Balance -1305.93 / -1152.43 -1091.90 / -1341.90 -404.33 / -404.33 Labs (Last 48 Hours) 01/20/20 01/21/20 01/22/20 09:30 10:55 12:15 WBC RBC Hgb Hct MCV MCH MCHC RDW Std Deviation RDW Coeff of Genaro Plt Count MPV Neut % (Auto) Absolute Neuts (auto) Absolute Lymphs (auto) Total Counted Neutrophils % (Manual) Band Neutrophils % Lymphocytes % (Manual) Monocytes % (Manual) Metamyelocytes % Myelocytes % Promyelocytes % Diff Path Review Platelet Estimate RBC Morphology APTT 36.7 H Specimen Type Sample Site pH Bicarbonate Actual Total CO2 Base Excess O2 Saturation O2 % ABG pCO2 ABG pO2 Erlin Test Respiration Rate O2 Delivery Device Vent Mode POC PEEP POC Pressure Suppt Sodium Potassium Chloride Carbon Dioxide Anion Gap BUN Creatinine Estim Creat Clear Calc Est GFR (MDRD) Af Amer Est GFR (MDRD) Non-Af BUN/Creatinine Ratio Glucose Calcium Total Bilirubin AST ALT Alkaline Phosphatase Total Protein Albumin Globulin Albumin/Globulin Ratio Tacrolimus 4.3 Hep B Core Total Ab Negative POC Glucose 01/22/20 01/23/20 01/23/20 20:10 04:10 04:10 WBC 20.9 H RBC 3.78 L Hgb 10.8 L Hct 33.9 L MCV 89.7 MCH 28.6 MCHC 31.9 L D RDW Std Deviation 43.6 RDW Coeff of Genaro 13.4 Plt Count 360 MPV 9.8 Neut % (Auto) Absolute Neuts (auto) Absolute Lymphs (auto) Total Counted Neutrophils % (Manual) Band Neutrophils % Lymphocytes % (Manual) Monocytes % (Manual) Metamyelocytes % Myelocytes % Promyelocytes % Diff Path Review Platelet Estimate RBC Morphology APTT 97.1 H* Specimen Type Sample Site pH Bicarbonate Actual Total CO2 Base Excess O2 Saturation O2 % ABG pCO2 ABG pO2 Erlin Test Respiration Rate O2 Delivery Device Vent Mode POC PEEP POC Pressure Suppt Sodium 136 Potassium 5.6 H Chloride 104 Carbon Dioxide 26.0 Anion Gap 6 BUN 83 H Creatinine 1.91 H Estim Creat Clear Calc 42.77 Est GFR (MDRD) Af Amer 47 L Est GFR (MDRD) Non-Af 39 L BUN/Creatinine Ratio 43.5 H Glucose 396 H Calcium 8.9 Total Bilirubin 0.30 AST 30 ALT 39 Alkaline Phosphatase 77 Total Protein 6.8 Albumin 2.1 L Globulin 4.7 H Albumin/Globulin Ratio 0.4 L Tacrolimus Hep B Core Total Ab POC Glucose 01/23/20 01/23/20 01/23/20 04:10 05:17 06:28 WBC RBC Hgb Hct MCV MCH MCHC RDW Std Deviation RDW Coeff of Genaro Plt Count MPV Neut % (Auto) Absolute Neuts (auto) Absolute Lymphs (auto) Total Counted Neutrophils % (Manual) Band Neutrophils % Lymphocytes % (Manual) Monocytes % (Manual) Metamyelocytes % Myelocytes % Promyelocytes % Diff Path Review Platelet Estimate RBC Morphology APTT 38.0 H Specimen Type ART Sample Site R Radial pH 7.34 L Bicarbonate Actual 25.5 Total CO2 27 Base Excess 0 O2 Saturation 92 L O2 % 50 ABG pCO2 47.5 H ABG pO2 67 L Erlin Test Respiration Rate 12 O2 Delivery Device Adult Vent Vent Mode BIVENT POC PEEP 12 POC Pressure Suppt 5 Sodium Potassium Chloride Carbon Dioxide Anion Gap BUN Creatinine Estim Creat Clear Calc Est GFR (MDRD) Af Amer Est GFR (MDRD) Non-Af BUN/Creatinine Ratio Glucose Calcium Total Bilirubin AST ALT Alkaline Phosphatase Total Protein Albumin Globulin Albumin/Globulin Ratio Tacrolimus Hep B Core Total Ab POC Glucose 377 H 01/23/20 01/23/20 01/23/20 10:20 13:17 17:00 WBC RBC Hgb Hct MCV MCH MCHC RDW Std Deviation RDW Coeff of Genaro Plt Count MPV Neut % (Auto) Absolute Neuts (auto) Absolute Lymphs (auto) Total Counted Neutrophils % (Manual) Band Neutrophils % Lymphocytes % (Manual) Monocytes % (Manual) Metamyelocytes % Myelocytes % Promyelocytes % Diff Path Review Platelet Estimate RBC Morphology APTT 85.9 H 71.7 H Specimen Type Sample Site pH Bicarbonate Actual Total CO2 Base Excess O2 Saturation O2 % ABG pCO2 ABG pO2 Erlin Test Respiration Rate O2 Delivery Device Vent Mode POC PEEP POC Pressure Suppt Sodium Potassium Chloride Carbon Dioxide Anion Gap BUN Creatinine Estim Creat Clear Calc Est GFR (MDRD) Af Amer Est GFR (MDRD) Non-Af BUN/Creatinine Ratio Glucose Calcium Total Bilirubin AST ALT Alkaline Phosphatase Total Protein Albumin Globulin Albumin/Globulin Ratio Tacrolimus Hep B Core Total Ab POC Glucose 342 H 01/23/20 01/23/20 01/24/20 17:00 21:46 00:15 WBC RBC Hgb Hct MCV MCH MCHC RDW Std Deviation RDW Coeff of Genaro Plt Count MPV Neut % (Auto) Absolute Neuts (auto) Absolute Lymphs (auto) Total Counted Neutrophils % (Manual) Band Neutrophils % Lymphocytes % (Manual) Monocytes % (Manual) Metamyelocytes % Myelocytes % Promyelocytes % Diff Path Review Platelet Estimate RBC Morphology APTT 53.1 H Specimen Type Sample Site pH Bicarbonate Actual Total CO2 Base Excess O2 Saturation O2 % ABG pCO2 ABG pO2 Erlin Test Respiration Rate O2 Delivery Device Vent Mode POC PEEP POC Pressure Suppt Sodium Potassium Chloride Carbon Dioxide Anion Gap BUN Creatinine Estim Creat Clear Calc Est GFR (MDRD) Af Amer Est GFR (MDRD) Non-Af BUN/Creatinine Ratio Glucose Calcium Total Bilirubin AST ALT Alkaline Phosphatase Total Protein Albumin Globulin Albumin/Globulin Ratio Tacrolimus Hep B Core Total Ab POC Glucose 314 H 270 H 01/24/20 01/24/20 01/24/20 00:19 06:10 06:10 WBC 18.5 H RBC 3.46 L Hgb 9.9 L Hct 31.2 L MCV 90.2 MCH 28.6 MCHC 31.7 L RDW Std Deviation 44.3 H RDW Coeff of Genaro 13.6 Plt Count 321 MPV 9.3 Neut % (Auto) Not Reportable Absolute Neuts (auto) 16.7 H Absolute Lymphs (auto) 0.56 L Total Counted 100 Neutrophils % (Manual) 86 H Band Neutrophils % 4 Lymphocytes % (Manual) 3 L Monocytes % (Manual) 1 Metamyelocytes % 2 H Myelocytes % 3 H Promyelocytes % 1 H Diff Path Review May foll Platelet Estimate ADEQUATE RBC Morphology NORM C+C APTT 46.1 H Specimen Type Sample Site pH Bicarbonate Actual Total CO2 Base Excess O2 Saturation O2 % ABG pCO2 ABG pO2 Erlin Test Respiration Rate O2 Delivery Device Vent Mode POC PEEP POC Pressure Suppt Sodium Potassium Chloride Carbon Dioxide Anion Gap BUN Creatinine Estim Creat Clear Calc Est GFR (MDRD) Af Amer Est GFR (MDRD) Non-Af BUN/Creatinine Ratio Glucose Calcium Total Bilirubin AST ALT Alkaline Phosphatase Total Protein Albumin Globulin Albumin/Globulin Ratio Tacrolimus Hep B Core Total Ab POC Glucose 230 H 01/24/20 01/24/20 06:10 08:11 WBC RBC Hgb Hct MCV MCH MCHC RDW Std Deviation RDW Coeff of Genaro Plt Count MPV Neut % (Auto) Absolute Neuts (auto) Absolute Lymphs (auto) Total Counted Neutrophils % (Manual) Band Neutrophils % Lymphocytes % (Manual) Monocytes % (Manual) Metamyelocytes % Myelocytes % Promyelocytes % Diff Path Review Platelet Estimate RBC Morphology APTT Specimen Type ART Sample Site R Radial pH 7.50 H Bicarbonate Actual 28.0 H Total CO2 29 Base Excess 5 H O2 Saturation 89 L O2 % 50 ABG pCO2 35.9 ABG pO2 51 L Erlin Test Positive Respiration Rate O2 Delivery Device Adult Vent Vent Mode CPAP/PS POC PEEP 5 POC Pressure Suppt 5 Sodium 146 H Potassium 5.3 H Chloride 115 H Carbon Dioxide 29.0 Anion Gap 2 L BUN 81 H Creatinine 1.48 H Estim Creat Clear Calc 55.20 Est GFR (MDRD) Af Amer 64 Est GFR (MDRD) Non-Af 53 L BUN/Creatinine Ratio 54.7 H Glucose 75 Calcium 8.9 Total Bilirubin AST ALT Alkaline Phosphatase Total Protein Albumin Globulin Albumin/Globulin Ratio Tacrolimus Hep B Core Total Ab POC Glucose Microbiology 01/18/20 16:25 Blood Culture (Wb) - Anticubital Left Blood Culture - Final No growth in 5 days. 01/18/20 16:36 Blood Culture (Wb) - Left Forearm Blood Culture - Final No growth in 5 days. Clinical Impression(s) from Imaging Studies KUB X-Ray 01/23/20 00:01 IMPRESSION: 1. Appropriate positioning of supportive devices 2. Normal bowel gas pattern Electronically Signed: Jonathan Aguilar MD at 1:57 EST Tel , Service support , Medical Necessity - Tobacco Use Smoking Status: Former smoker Tobacco Use: Non-smoker Assessment/Plan All Active Problems (Last Updated 09/02/18 @ 13:55 by Katheryn Mosqueda) TUCKER (acute kidney injury) (Acute) COVID-19 virus infection (Acute) Acute respiratory failure with hypoxia (Acute) RECOMMENDATIONS: 1. Sinew Precedex for sedation 2. Continue PPI 3. Attempt diuretic therapy 4. H&H stable. Okay to continue heparin drip for now 5. Wean oxygen as tolerated 6. Transition to assist control for ventilation IMPRESSIONS: 1. Acute hypoxic respiratory failure secondary to COVID-19 bilateral pneumonia Patient with significant bilateral infiltrates noted on chest x-ray. Patient reportedly is 2 to 3 weeks out from initial positive testing. Unclear if findings on x-ray are new or persisting from initial inflammation. Infectious diseases following. Defer antibiotics/Remdesivir to them. Patient appears to have responded better to the Precedex. We will switch back to assist control. Patient was able to tolerate 1 hour spontaneous breathing trial, but oxygenation was marginal. Will attempt diuresis and repeat spontaneous breathing trial tomorrow. 2. Chronic kidney disease stage III to stage IV status post transplant Patient was off of CellCept secondary to COVID-19 diagnosis. Nephrology has been consulted. Restarted on immunosuppression. Patient has had immunosuppression held. Patient unable to be transferred to a tertiary center secondary to bed availability. No plans for dialysis. Renal function appears to be at his baseline. 3. Hyperlipidemia/hypertension/elevated troponin/protracted hypoxia Complicates care, management, recovery and prognosis. Patient's blood pressure is marginal at this time, but adequate. We will need to monitor for rebound given discontinuation of Cardizem and clonidine. Nephrology has been consulted. Do anticipate an element of elevated troponin given systemic hypoxia. Patient does not have any findings on telemetry to suggest acute cardio intervention. Patient may require an echocardiogram for evaluation in the future. Renal function has improved, so will attempt diuresis with Lasix 4. A. fib/flutter with RVR Patient has been on Cardizem and tolerating well. Amiodarone will interact with immunosuppression. Rate better controlled at this time. Patient is on full anticoagulation. TIME: 35 minutes critical care time spent addressing patient's acute hypoxic r espiratory failure, acute kidney injury, review of all data and collaboration with care team (6 AM to 7 AM) [phone]: [id number] Critical care first hour
--- NOTE | 2020-01-24 08:58 | PN_ITS ---
Patient Problems: Active and Suspected Problems (Last Updated 09/02/18 @ 13:55 by Katheryn Mosqueda) TUCKER (acute kidney injury) (Acute) COVID-19 virus infection (Acute) Acute respiratory failure with hypoxia (Acute) Subjective: Chief complaint: Follow-up after admission for acute COVID-19 pneumonia and acute hypoxic respiratory failure, atrial flutter with RVR, acute kidney injury on top of stage III chronic kidney disease. Patient seen and examined. No acute events overnight. Today, he is awake, alert, responding to questions appropriately. He denied any pain. Denies significant shortness of breath. He was able to tolerate around 20 to 30 minutes of spontaneous breathing trial. Currently, he is on AC mode, FiO2 of 50%. He is afebrile, blood pressure and heart rate are stable. - Physical Exam Vitals/I&O's: Vital Signs Temp Pulse Resp BP Pulse Ox 98.6 F 86 28 H 133/89 H 92 01/24/20 04:00 01/24/20 06:59 01/24/20 06:59 01/24/20 06:00 01/24/20 06:59 Oxygen Flow Rate (L/min) 50 Oxygen Delivery Method Mechanical Ventilator Weight: 168 lb 3.403 oz Body Mass Index (BMI) 26.0 Intake and Output for Last 24 Hours 01/22/20 01/23/20 01/24/20 23:59 23:59 23:59 Intake Total 2789.07 / 2942.57 3058.10 / 3058.10 495.67 / 495.67 Output Total 4095 / 4095 4150 / 4400 900 / 900 Balance -1305.93 / -1152.43 -1091.90 / -1341.90 -404.33 / -404.33 General: Alert, Cooperative, No apparent distress HEENT: Atraumatic, PERRLA, EOMI, Normocephalic Oral: Moist Mucosa, No Gingival or Mucosal Lesions/ Ulcerations Neck: Supple, No JVD, Negative Carotid Bruits, Trachea Midline, Thyroid Normal Size and Texture Lungs: Clear to auscultation, No rhonchi, No wheeze, No rales, Diminished Cardiovascular: Normal S1, Normal S2, PMI Normal, Irregular Rate Abdomen: Bowel Sounds Present, Soft, Non Tender, Non-Distended, No Hepato- splenomegaly Extremities: No clubbing, No cyanosis, No edema Skin: No rashes, No breakdown Lymphatic: No Cervical, Supraclavicular, or Inguinal Adenopathy Neurological: Cranial nerves II-XII grossly intact, Neuro grossly intact Psych/Mental Status: Restless Microbiology Past 72 Hours 01/18/20 16:25 Blood Culture (Wb) - Anticubital Left Blood Culture - Final No growth in 5 days. 01/18/20 16:36 Blood Culture (Wb) - Left Forearm Blood Culture - Final No growth in 5 days. 01/19/20 01:45 Sputum, Induced/Lukens Gram Stain - Final 01/19/20 01:45 Sputum, Induced/Lukens Respiratory Culture - Final Laboratory Results 01/23/20 10:20: APTT 85.9 H 01/23/20 13:17: POC Glucose 342 H 01/23/20 17:00: APTT 71.7 H 01/23/20 17:00: POC Glucose 314 H 01/23/20 21:46: POC Glucose 270 H 01/24/20 00:15: APTT 53.1 H 01/24/20 00:19: POC Glucose 230 H 01/24/20 06:10: APTT 46.1 H 01/24/20 06:10: WBC 18.5 H, RBC 3.46 L, Hgb 9.9 L, Hct 31.2 L, MCV 90.2, MCH 28.6, MCHC 31.7 L, RDW Std Deviation 44.3 H, RDW Coeff of Genaro 13.6, Plt Count 321, MPV 9.3, Neut % (Auto) Not Reportable, Absolute Neuts (auto) 16.7 H, Absolute Lymphs (auto) 0.56 L, Total Counted 100, Neutrophils % (Manual) 86 H, Band Neutrophils % 4, Lymphocytes % (Manual) 3 L, Monocytes % (Manual) 1, Metamyelocytes % 2 H, Myelocytes % 3 H, Promyelocytes % 1 H, Diff Path Review June, Platelet Estimate ADEQUATE, RBC Morphology NORM C+C 01/24/20 06:10: Sodium 146 H, Potassium 5.3 H, Chloride 115 H, Carbon Dioxide 29.0, Anion Gap 2 L, BUN 81 H, Creatinine 1.48 H, Estim Creat Clear Calc 55.20, Est GFR (MDRD) Af Amer 64, Est GFR (MDRD) Non-Af 53 L, BUN/Creatinine Ratio 54.7 H, Glucose 75, Calcium 8.9 01/24/20 08:11: Specimen Type ART, Sample Site R Radial, pH 7.50 H, Bicarbonate Actual 28.0 H, Total CO2 29, Base Excess 5 H, O2 Saturation 89 L, O2 % 50, ABG pCO2 35.9, ABG pO2 51 L, Erlin Test Positive, O2 Delivery Device Adult Vent, Vent Mode CPAP/PS, POC PEEP 5, POC Pressure Suppt 5 Current Medications Acetaminophen (Acetaminophen 650 Mg/20 Ml Udc) 650 mg GT Q6H PRN PRN PRN Reason: Pain Score 1-10/Temp > 100.7 F Last Admin: 01/22/20 22:02 Dose: 650 mg Documented by: Albuterol Sulfate (Albuterol 2.5 Mg/3 Ml Vial.Neb.) 2.5 mg INHALATION Q2H PRN PRN PRN Reason: WHEEZING Aspirin (Aspirin 81 Mg Tab.Chew) 81 mg GT DAILY COUNT INCLUDES THE [facility] Last Admin: 01/23/20 10:14 Dose: 81 mg Documented by: Chlorhexidine Gluconate (Chlorhexidine 15 Ml) 15 ml PO BID COUNT INCLUDES THE [facility] Last Admin: 01/23/20 23:00 Dose: 15 ml Documented by: Dexamethasone Sodium Phosphate (Dexamethasone 10 Mg/Ml Vial) 6 mg IV DAILY COUNT INCLUDES THE [facility] Stop: 01/27/20 10:01 Last Admin: 01/23/20 10:14 Dose: 6 mg Documented by: Heparin Sodium (Porcine) (Heparin Injection (Vial) 5,000 Unit/Ml Vial) 0 unit IV UD PRN; Protocol PRN Reason: dose adjustment Last Admin: 01/24/20 08:14 Dose: 1,000 unit Documented by: Heparin Sodium/Dextrose () 25,000 units in 250 mls @ 11 mls/hr IV .[id number] COUNT INCLUDES THE [facility]; Protocol Last Titration: 01/23/20 20:00 Dose: 700 units/hr, 7 mls/hr Documented by: Fentanyl Citrate 1,000 mcg/ (Sodium Chloride) 100 mls @ 2.5 mls/hr CONT INF .Q40H COUNT INCLUDES THE [facility]; Protocol Last Titration: 01/24/20 06:00 Dose: 100 mcg/hr, 10 mls/hr Documented by: Sodium Chloride () 250 mls @ 15 mls/hr IV .[id number] PRN PRN Reason: Saline Flush Sodium Chloride () 250 mls @ 15 mls/hr IV .[id number] PRN PRN Reason: Additional IVPB Infusion Enteral Nutritional Formula (Vital Af 1.2 José Miguel Liquid) 1,000 mls @ 60 mls/hr GT .[id number] COUNT INCLUDES THE [facility] Last Admin: 01/24/20 07:57 Dose: Not Given Documented by: Diltiazem HCl 125 mg/ Dextrose 125 mls @ 5 mls/hr IV .Q25H KEARA; Protocol Last Admin: 01/24/20 07:51 Dose: Not Given Documented by: Pantoprazole Sodium 40 mg/ (Sodium Chloride) 110 mls @ 330 mls/hr IV Q12 COUNT INCLUDES THE [facility] Last Infusion: 01/24/20 06:50 Dose: Infused Documented by: Dexmedetomidine HCl 400 mcg/ (Sodium Chloride) 100 mls @ 9.7 mls/hr CONT INF .[id number] COUNT INCLUDES THE [facility]; Protocol Last Admin: 01/24/20 07:56 Dose: Not Given Documented by: Dexmedetomidine HCl 1,000 mcg/ (Sodium Chloride) 250 mls @ 9.7 mls/hr CONT INF .[id number] COUNT INCLUDES THE [facility]; Protocol Last Titration: 01/24/20 04:36 Dose: Infused Documented by: Insulin Glargine (Insulin Glargine 100 Units/Ml Pen) 20 units SC BID COUNT INCLUDES THE [facility] Last Admin: 01/23/20 22:09 Dose: 20 u Documented by: Insulin Human Lispro (Insulin Lispro 100 Unit/Ml Insuln.Pen) 0 unit SC Q6 COUNT INCLUDES THE [facility]; Protocol Last Admin: 01/24/20 07:01 Dose: Not Given Documented by: Ondansetron HCl (Ondansetron 4 Mg/2 Ml Vial) 4 mg IV Q8H PRN PRN PRN Reason: NAUSEA/VOMITING Senna/Docusate Sodium (Senna/Docusate Sodium 1 Tablet) 2 tablet PO BID COUNT INCLUDES THE [facility] Last Admin: 01/23/20 22:10 Dose: 2 tablet Documented by: Sodium Chloride (0.9% Saline Lock 10 Ml Syringe) 10 - 40 ml IV UD PRN PRN Reason: SALINE FLUSH Last Admin: 01/23/20 05:07 Dose: 40 ml Documented by: Medical Necessity - Tobacco Use Smoking Status: Former smoker Tobacco Use: Non-smoker Assessment/Plan All Active Problems (Last Updated 09/02/18 @ 13:55 by Katheryn Mosqueda) TUCKER (acute kidney injury) (Acute) COVID-19 virus infection (Acute) Acute respiratory failure with hypoxia (Acute) This is a 54 years old male patient presented to the emergency room because of shortness of breath, found to have COVID-19 pneumonia and his pulse ox dropped while patient was in the ED, needed to be intubated and started on mechanical ventilation. After admission, he developed TUCKER on CKD requiring hemodialysis as well as new onset A. fib/flutter with RVR. #1 acute bilateral COVID-19 pneumonia: He is on IV Decadron, IV heparin drip. He completed 5 days of remdesivir. Remains on mechanical ventilation, oxygen has been improving. He was able to tolerate spontaneous breathing trial this morning. He is on IV Precedex drip for sedation. This morning, he is afebrile, blood pressure and heart rate are stable. Sputum culture showed no growth. Blood cultures showed no growth in 48 hours. Critical care and infectious disease On the case. Plan to continue same treatment, plan for gentle diuresis today, possible extubation tomorrow. #2 acute hypoxic respiratory failure: Secondary to #1. Currently, on mechanical ventilation, was able to tolerate spontaneous breathing trial sometime this morning. Now, he is on AC mode with FiO2 50%. He is awake and alert. Plan as above. #3 abnormal cardiac enzymes: Likely due to demand ischemia. EKG without acute segment changes. #4 acute kidney injury on top of stage III chronic kidney disease: In the setting of history of renal transplant. Status post hemodialysis x2. Today, BUN is 81 and creatinine is 1.48, back to his baseline. CellCept and tacrolimus held. He is on IV Decadron. Nephrology on the case. #5 new onset atrial flutter/fibrillation: Remained on Cardizem drip. Heart rate is down to around 80s, blood pressure stabilized. #6 hypertension: Currently, blood pressure stable. Antihypertensive medications held. #7 hyperlipidemia: Statins held. #8 DVT prophylaxis: Remained on IV heparin drip. This note was generated with PrepChampsation software. It may contain incorrect words, spelling, and punctuation that were not noted in checking the note before signing. Inpatient E&M: [id number] Subs Hosp L3
--- NOTE | 2020-01-24 09:32 | NURSING ---
Patients MAR had two different Precedex orders on it, at different concentrations. 1,000 mcg in 250ml bag infusing, however 400mcg in 100ml was charted on. (01/24/2020 5935). This RN charted on the correct bag that was infusing and discontinued the Precedex order that had been changed.
[2020-01-24] MEDS: Furosemide 40 MG/4 ML Vial IV (10:17)
[2020-01-24] MEDS: Aspirin 81 MG TAB.CHEW GT (10:18)
[2020-01-24] MEDS: Senna/Docusate Sodium 1 Tablet 2 TABLET PO (10:18)
[2020-01-24] MEDS: Chlorhexidine 15 ML PO (10:18)
[2020-01-24] MEDS: dexAMETHasone 10 MG/ML Vial 6 MG IV (10:18)
--- NOTE | 2020-01-24 11:16 | CON.PCM_ITS ---
Problem List (1) a fib with rvr Status: Acute Reason for Consult Date of Consultation: 01/24/20 History of Present Illness: The patient is a 54 year old M [] Past Medical History Allergies/Adverse Reactions: Allergies No Known Allergies Allergy (Verified 01/09/20 18:40) Home Medications: Ambulatory Orders Medication Instructions Recorded Famotidine [Pepcid] 20 mg PO DAILY 11/19/12 aspirin 81 mg tablet,delayed 81 mg PO DAILY tab 04/11/17 release mycophenolate mofetil 250 mg 500 mg PO BID 04/16/17 capsule prednisone 5 mg tablet 7.5 mg PO QDAY 04/16/17 tacrolimus 0.5 mg capsule 0.5 mg PO .COMPLEX 04/16/17 clonidine HCl 0.3 mg tablet 0.3 mg PO TID tab 11/30/17 Lisinopril [Zestril] 10 mg PO DAILY 11/07/18 Atorvastatin Calcium [Lipitor] 10 mg PO QHS 11/13/18 Cholecalciferol (Vitamin D3) 2,000 unit PO DAILY 11/13/18 [Vitamin D3] Diltiazem HCl [Taztia Xt] 360 mg PO DAILY 11/13/18 Levofloxacin [Levaquin] 750 mg PO DAILY 01/18/20 Sulfamethoxazole/Trimethoprim 1 tab PO DAILY 01/18/20 [Sulfamethoxazole-Tmp Ss Tablet] Past Medical History (Chronic Problems): Chronic Problems (Last Updated 09/02/18 @ 13:55 by Katheryn Mosqueda) Essential (primary) hypertension (Chronic) History of renal transplant (Chronic 2005) 2005 for congenital defect Right bundle branch block (Chronic) Hyperlipidemia (Chronic) Surgical History: - - renal x-plant, fistula, bilateral shoulder surgery Psychiatric History: No pertinent psych hx - *Family History Maternal Family History: Family History (Last Reviewed 06/01/17 @ 09:[address] Mundo Balderrama MD) Mother History of kidney disease History Items: No pertinent history Paternal Family History: Family History (Last Reviewed 06/01/17 @ 09:[address] Mundo Balderrama MD) Mother History of kidney disease History Items: No pertinent history Lives: With Family Smoking Status: Former smoker Tobacco Use: Non-smoker Alcohol: None Drugs: None Subjectve: Physical exam was not performed in this case to minimize risk of spread of Covid. Consultation is based on discussion with the medical staff, nursing staff Patient cardiac telemetry was reviewed in ICU. Objective: Vital Signs Temp Pulse Resp BP Pulse Ox 98.6 F 92 31 H 133/89 H 93 01/24/20 04:00 01/24/20 09:26 01/24/20 09:26 01/24/20 06:00 01/24/20 09:26 Oxygen Flow Rate (L/min) 50 Oxygen Delivery Method Mechanical Ventilator Weight: 168 lb 3.403 oz Body Mass Index (BMI) 26.0 Intake and Output for Last 24 Hours 01/22/20 01/23/20 01/24/20 23:59 23:59 23:59 Intake Total 2789.07 / 2942.57 3058.10 / 3058.10 595.67 / 595.67 Output Total 4095 / 4095 4150 / 4400 1350 / 1350 Balance -1305.93 / -1152.43 -1091.90 / -1341.90 -754.33 / -754.33 01/23/20 17:00: APTT 71.7 H 01/24/20 00:15: APTT 53.1 H 01/24/20 06:10: APTT 46.1 H 01/24/20 06:10: WBC 18.5 H, RBC 3.46 L, Hgb 9.9 L, Hct 31.2 L, MCV 90.2, MCH 28.6, MCHC 31.7 L, Plt Count 321, MPV 9.3, Neut % (Auto) Not Reportable, Abs olute Neuts (auto) 16.7 H, Total Counted 100, Neutrophils % (Manual) 86 H, Band Neutrophils % 4, Lymphocytes % (Manual) 3 L, Monocytes % (Manual) 1, Metamyelocytes % 2 H, Myelocytes % 3 H, Promyelocytes % 1 H 01/24/20 06:10: Sodium 146 H, Potassium 5.3 H, Chloride 115 H, Carbon Dioxide 29.0, Anion Gap 2 L, BUN 81 H, Creatinine 1.48 H, Est GFR (MDRD) Af Amer 64, Est GFR (MDRD) Non-Af 53 L, BUN/Creatinine Ratio 54.7 H, Glucose 75, Calcium 8.9 01/24/20 08:11: pH 7.50 H, Bicarbonate Actual 28.0 H, Base Excess 5 H, O2 Saturation 89 L, ABG pCO2 35.9, ABG pO2 51 L, Erlin Test Positive Rhythm: EKG: ECHO: Stress Test: Cardiac Cath: PCI: CT Surgery: Holter monitor: EPS: PPM: CXR: Chest CT Scan: Assessment/Plan 54-year-old patient, admitted through the ER presenting with the shortness of breath Diagnosed with COVID-19 with pneumonia Due to hypoxemia and acute respiratory failure patient intubated and on the ventilator Noted has a history of stage III CKD with acute renal injury Also had mild elevation of cardiac by marker high sensitive troponin secondary to demand ischemia Cardiac consult requested to evaluate for A. fib with RVR/atrial flutter Patient was on Cardizem IV and converted to sinus rhythm Today in the intensive care unit the patient remained stable hemodynamically and he is in normal sinus rhythm From cardiac standpoint I review all his current medication I added low-dose beta-aretha metoprolol tartrate 25 mg twice a day. This point we will sign off and will be available if needed Would recommend to follow-up following discharge with a turret lathe machinist for continuation of cardiac care.
[2020-01-24] MEDS: Acetaminophen 650 MG/20 ML UDC GT (13:05)
[2020-01-24 13:14] LABS: Partial Thromboplast Time 50.7 Seconds (24.1-36.2)
--- NOTE | 2020-01-24 16:59 | PN.RENAL_ITS ---
Patient Problems: Active and Suspected Problems (Last Updated 09/02/18 @ 13:55 by Katheryn Mosqueda) TUCKER (acute kidney injury) (Acute) a fib with rvr (Acute) COVID-19 virus infection (Acute) Acute respiratory failure with hypoxia (Acute) Subjective: following for TUCKER No acute events remains intubated. - Physical Exam Vitals/I&O's: Vital Signs Temp Pulse Resp BP Pulse Ox 101.5 F H 105 H 36 H 150/85 H 98 01/24/20 12:00 01/24/20 15:22 01/24/20 15:22 01/24/20 15:00 01/24/20 15:22 Oxygen Flow Rate (L/min) 50 Oxygen Delivery Method Mechanical Ventilator Weight: 76.3 kg Body Mass Index (BMI) 26.0 Intake and Output for Last 24 Hours 01/22/20 01/23/20 01/24/20 23:59 23:59 23:59 Intake Total 2789.07 / 2942.57 3058.10 / 3058.10 1714.45 / 1714.45 Output Total 4095 / 4095 4150 / 4400 2350 / 2350 Balance -1305.93 / -1152.43 -1091.90 / -1341.90 -635.55 / -635.55 General: Alert, Cooperative HEENT: Atraumatic Oral: Moist Mucosa Neck: Supple, No JVD Lungs: Clear to auscultation, Normal air movement, No rhonchi, - - diminished Cardiovascular: Normal S1, Normal S2, Irregular Rate Abdomen: Bowel Sounds Present, Soft, Non Tender Extremities: No clubbing, No cyanosis, No edema Skin: No rashes Lymphatic: No Cervical, Supraclavicular, or Inguinal Adenopathy Psych/Mental Status: Restless Microbiology Past 72 Hours 01/18/20 16:25 Blood Culture (Wb) - Anticubital Left Blood Culture - Final No growth in 5 days. 01/18/20 16:36 Blood Culture (Wb) - Left Forearm Blood Culture - Final No growth in 5 days. Laboratory Results 01/23/20 17:00: APTT 71.7 H 01/23/20 17:00: POC Glucose 314 H 01/23/20 21:46: POC Glucose 270 H 01/24/20 00:15: APTT 53.1 H 01/24/20 00:19: POC Glucose 230 H 01/24/20 06:10: APTT 46.1 H 01/24/20 06:10: WBC 18.5 H, RBC 3.46 L, Hgb 9.9 L, Hct 31.2 L, MCV 90.2, MCH 28.6, MCHC 31.7 L, RDW Std Deviation 44.3 H, RDW Coeff of Genaro 13.6, Plt Count 321, MPV 9.3, Neut % (Auto) Not Reportable, Absolute Neuts (auto) 16.7 H, Absolute Lymphs (auto) 0.56 L, Total Counted 100, Neutrophils % (Manual) 86 H, Band Neutrophils % 4, Lymphocytes % (Manual) 3 L, Monocytes % (Manual) 1, Metamyelocytes % 2 H, Myelocytes % 3 H, Promyelocytes % 1 H, Diff Path Review June, Platelet Estimate ADEQUATE, RBC Morphology NORM C+C 01/24/20 06:10: Sodium 146 H, Potassium 5.3 H, Chloride 115 H, Carbon Dioxide 29.0, Anion Gap 2 L, BUN 81 H, Creatinine 1.48 H, Estim Creat Clear Calc 55.20, Est GFR (MDRD) Af Amer 64, Est GFR (MDRD) Non-Af 53 L, BUN/Creatinine Ratio 54.7 H, Glucose 75, Calcium 8.9 01/24/20 08:11: Specimen Type ART, Sample Site R Radial, pH 7.50 H, Bicarbonate Actual 28.0 H, Total CO2 29, Base Excess 5 H, O2 Saturation 89 L, O2 % 50, ABG pCO2 35.9, ABG pO2 51 L, Erlin Test Positive, O2 Delivery Device Adult Vent, Vent Mode CPAP/PS, POC PEEP 5, POC Pressure Suppt 5 01/24/20 12:55: APTT 50.7 H Current Medications Acetaminophen (Acetaminophen 650 Mg/20 Ml Udc) 650 mg GT Q6H PRN PRN PRN Reason: Pain Score 1-10/Temp > 100.7 F Last Admin: 01/24/20 13:05 Dose: 650 mg Documented by: Albuterol Sulfate (Albuterol 2.5 Mg/3 Ml Vial.Neb.) 2.5 mg INHALATION Q2H PRN PRN PRN Reason: WHEEZING Aspirin (Aspirin 81 Mg Tab.Chew) 81 mg GT DAILY [facility] Last Admin: 01/24/20 10:18 Dose: 81 mg Documented by: Chlorhexidine Gluconate (Chlorhexidine 15 Ml) 15 ml PO BID [facility] Last Admin: 01/24/20 10:18 Dose: 15 ml Documented by: Dexamethasone Sodium Phosphate (Dexamethasone 10 Mg/Ml Vial) 6 mg IV DAILY [facility] Stop: 01/27/20 10:01 Last Admin: 01/24/20 10:18 Dose: 6 mg Documented by: Heparin Sodium (Porcine) (Heparin Injection (Vial) 5,000 Unit/Ml Vial) 0 unit IV UD PRN; Protocol PRN Reason: dose adjustment Last Admin: 01/24/20 14:08 Dose: 1,000 unit Documented by: Heparin Sodium/Dextrose () 25,000 units in 250 mls @ 11 mls/hr IV .[id number] [facility]; Protocol Last Titration: 01/24/20 15:00 Dose: 900 units/hr, 9 mls/hr Documented by: Fentanyl Citrate 1,000 mcg/ (Sodium Chloride) 100 mls @ 2.5 mls/hr CONT INF .Q40H KEARA; Protocol Last Titration: 01/24/20 15:00 Dose: 100 mcg/hr, 10 mls/hr Documented by: Sodium Chloride () 250 mls @ 15 mls/hr IV .[id number] PRN PRN Reason: Saline Flush Sodium Chloride () 250 mls @ 15 mls/hr IV .[id number] PRN PRN Reason: Additional IVPB Infusion Enteral Nutritional Formula (Vital Af 1.2 José Miguel Liquid) 1,000 mls @ 60 mls/hr GT .[id number] [facility] Last Admin: 01/24/20 07:57 Dose: Not Given Documented by: Diltiazem HCl 125 mg/ Dextrose 125 mls @ 5 mls/hr IV .Q25H KEARA; Protocol Last Admin: 01/24/20 07:51 Dose: Not Given Documented by: Pantoprazole Sodium 40 mg/ (Sodium Chloride) 110 mls @ 330 mls/hr IV Q12 [facility] Last Infusion: 01/24/20 12:48 Dose: Infused Documented by: Dexmedetomidine HCl 1,000 mcg/ (Sodium Chloride) 250 mls @ 9.7 mls/hr CONT INF .[id number] [facility]; Protocol Last Titration: 01/24/20 15:00 Dose: 1.5 mcg/kg/hr, 29.1 mls/hr Documented by: Insulin Glargine (Insulin Glargine 100 Units/Ml Pen) 20 units SC BID [facility] Last Admin: 01/24/20 12:47 Dose: 20 u Documented by: Insulin Human Lispro (Insulin Lispro 100 Unit/Ml Insuln.Pen) 0 unit SC Q6 [facility]; Protocol Last Admin: 01/24/20 12:46 Dose: Not Given Documented by: Metoprolol Tartrate (Metoprolol Tartrate 25 Mg Tablet) 25 mg PO BID [facility] Ondansetron HCl (Ondansetron 4 Mg/2 Ml Vial) 4 mg IV Q8H PRN PRN PRN Reason: NAUSEA/VOMITING Senna/Docusate Sodium (Senna/Docusate Sodium 1 Tablet) 2 tablet PO BID [facility] Last Admin: 01/24/20 10:18 Dose: 2 tablet Documented by: Sodium Chloride (0.9% Saline Lock 10 Ml Syringe) 10 - 40 ml IV UD PRN PRN Reason: SALINE FLUSH Last Admin: 01/23/20 05:07 Dose: 40 ml Documented by: Medical Necessity - Tobacco Use Smoking Status: Former smoker Tobacco Use: Non-smoker Assessment/Plan All Active Problems (Last Updated 09/02/18 @ 13:55 by Katheryn Mosqueda) TUCKER (acute kidney injury) (Acute) a fib with rvr (Acute) COVID-19 virus infection (Acute) Acute respiratory failure with hypoxia (Acute) 1- TUCKER on CKD stage 3. CKD is likely from CNI toxicity Tucker is likely ATN associated with COVID 19 infection Patient needed one session of HD 2 days ago Kidney function is recovering now. 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 better. mild. can diurese or give kayexalate if higher tomorrow 4- Acute RF from COVID-19 viral pneumonia On decadron and remdesvir as directed by ID Vent support as per ICU team. Ok to diurese Will continue to follow. Please call if any question Kiah Maldonado MD
[2020-01-24] MEDS: Vital AF 1.2 Cal Liquid 1,000 ML 60 ML GT (18:25)
[2020-01-24 20:36] LABS: Bedside Glucose 132 mg/dL (70-110)
[2020-01-24 23:41] LABS: Bedside Glucose 221 mg/dL (70-110)
[2020-01-25] VITALS (43 sets, daily range): BP systolic 100–178; BP diastolic 63–99; PULSE 78–118; RESP 12–38; TEMP 37.1–39.3; O2SAT 89–95
[2020-01-25] MEDS: Senna/Docusate Sodium 1 Tablet 2 TABLET PO ×3 (00:13→20:10)
[2020-01-25] MEDS: Metoprolol Tartrate 25 MG Tablet PO ×3 (00:13→20:09)
[2020-01-25] MEDS: Dexmedetomidine 1,000 mcg in 0.9% NS 240 mL 29.1 MCG CONT INF (00:15)
[2020-01-25] MEDS: Insulin Lispro 100 UNIT/ML INSULN.PEN SC ×4 (00:20→16:49)
[2020-01-25 00:21] LABS: Bedside Glucose 187 mg/dL (70-110)
[2020-01-25] MEDS: Acetaminophen 650 MG/20 ML UDC GT ×2 (00:22→20:09)
[2020-01-25 00:51] LABS: Partial Thromboplast Time 80.4 Seconds (24.1-36.2)
[2020-01-25] MEDS: HEPARIN/D5w 25,000 UNITS 25,000 UNITS/250 ML IV.SOLN. 8 UNITS IV (02:30)
--- NOTE | 2020-01-25 02:30 | NURSING ---
This rn assuming care of this pt at this time. Report received from alisha mcknight.
--- NOTE | 2020-01-25 02:30 | NURSING ---
Pts heparin gtt still infusing even though mar showed heparin bag as empty 01/24/2020 at apx 2330. Heparin gtt rate decreased to 800units/hr at this time per nomogram and ptt of 80.4.
[2020-01-25] MEDS: Chlorhexidine 15 ML PO ×3 (02:48→20:11)
[2020-01-25] MEDS: 0.9% Saline Lock 10 ML Syringe IV ×2 (04:24→20:09)
[2020-01-25 04:50] LABS: Hematocrit 32.5 % (40-54); Hemoglobin 10.3 g/dL (13.0-16.5); Mean Corp Hgb Conc 31.7 g/dL (32-36); Mean Corpuscular Hgb 28.5 pg (27.0-32.0); Mean Platelet Vol. 9.8 fl (6.2-12.0); POSITIVE COUNT YES; POSITIVE MORPHOLOGY YES; Platelet Count 338 K/mm3 (150-450); RBC Distribution Width CV 13.4 % (11.6-14.6); RBC Distribution Width SD 43.8 fl (35.1-43.9); Red Blood Count 3.61 M/mm3 (4.6-6.2); White Blood Count 19.4 K/mm3 (4.4-11.0)
[2020-01-25 04:52] LABS: Differential Indicated MANUAL DIFF
[2020-01-25 05:15] LABS: ALB/GLOB Ratio 0.4 RATIO (0.9-2.4); AST(SGOT) 78 U/L (15-37); Alanine Aminotransfer ALT/SGPT 57 U/L (16-61); Albumin, Serum 1.9 g/dL (3.2-5.0); Alkaline Phosphatase 67 U/L (45-117); Anion Gap 5 (5-15); BUN 88 mg/dL (7-18); BUN/Creat Ratio 47.3 RATIO (10-20); Calcium,Total 8.9 mg/dL (8.5-10.1); Chloride 116 mmol/L (98-107); Creatinine, Serum 1.86 mg/dL (0.70-1.30); EST Glomerular Filtration Rate 40 mL/min (>60); Est Glom Filt Rate - Afr Amer 49 mL/min (>60); Estimated Creatinine Clearance 43.92 ml/min; Globulin 4.4 g/dL (2.2-4.2); Glucose 169 mg/dL (74-106); Potassium 5.5 mmol/L (3.5-5.1); Protein, Total 6.3 g/dL (6.4-8.2); Sodium Level 146 mmol/L (136-145)
[2020-01-25 05:20] LABS: Eosinophil 3 % (0-5); Lymphocyte 2 % (19-41); Metamyelocyte 6 % (0-1); Neutrophil-Band 11 % (0-5); Neutrophil-Segmented 78 % (47-70); Total Cells Counted 100 (MANUAL DIFF)
[2020-01-25 05:22] LABS: Absolute Lymphocyte Count 0.39 X10^3/uL (0.83-4.51); Absolute Neutrophil Count 17.3 X10^3/uL (2.0-7.7); Lymphocyte # 0.39 X10^3/ul (4.0); Neutrophil # 17.27 X10^3/uL (2.7-7.7)
[2020-01-25 05:23] LABS: Toxic Granulation RARE
[2020-01-25 05:24] LABS: Platelet Estimate ADEQUATE (ADEQ); Red Cell Morphology NORM C+C NORMAL (NORM C&C)
[2020-01-25] MEDS: TITRATION PARAMETER CHANGE 1 EACH IV (06:19)
--- NOTE | 2020-01-25 07:42 | PCM.PN.INT ---
Subjective: Patient did well overnight. No acute issues were reported. Patient did spike a fever this morning of unclear etiology and had to go up on his ventilator to 50%. Patient is not reporting any complaints. No change in secretions have been reported. Patient continues to have good urine output. Objective: Patient was unable to pass a spontaneous breathing trial this morning. Patient was tachycardic and tachypneic. However, patient did have a fever at the time of the spontaneous breathing trial. General: Alert, Cooperative, No apparent distress - Good vent synchrony., - - Appears older than stated age HEENT: Atraumatic, PERRLA, EOMI, Normocephalic, - - Slight scleral injection without icterus Oral: Moist Mucosa, No Gingival or Mucosal Lesions/ Ulcerations Neck: Supple, No JVD, No Nodes, Trachea Midline Lungs: No rhonchi, No wheeze, No rales, Diminished Cardiovascular: Normal S1, Normal S2, No murmurs, No rub noted, No Gallop, Tachycardic, - - Sinus tachycardia noted on telemetry Abdomen: Bowel Sounds Present, Soft, Non Tender, Non-Distended Extremities: No clubbing, No cyanosis, Edema Skin: - - No change from previous Musculoskeletal: No Tenderness to Palpation of Joints or Extremities Lymphatic: No Cervical, Supraclavicular, or Inguinal Adenopathy Neurological: Cranial nerves II-XII grossly intact, Neuro grossly intact, Motor Exam 5/5 strength throughout Psych/Mental Status: Normal Affect, Appropriate Vital Signs Temp Pulse Resp BP Pulse Ox 38.9 C H 98 22 H 137/86 H 92 01/25/20 07:00 01/25/20 07:00 01/25/20 07:00 01/25/20 07:00 01/25/20 07:00 Oxygen Flow Rate (L/min) 50 Oxygen Delivery Method Mechanical Ventilator Weight: 75.5 kg Body Mass Index (BMI) 26.0 Intake and Output for Last 24 Hours 01/23/20 01/24/20 01/25/20 23:59 23:59 23:59 Intake Total 3058.10 / 3058.10 2631.07 / 2631.07 1240.63 / 1240.63 Output Total 4150 / 4400 3300 / 3300 1700 / 1700 Balance -1091.90 / -1341.90 -668.93 / -668.93 -459.37 / -459.37 Labs (Last 48 Hours) 01/23/20 01/23/20 01/23/20 10:20 13:17 17:00 WBC RBC Hgb Hct MCV MCH MCHC RDW Std Deviation RDW Coeff of Genaro Plt Count MPV Neut % (Auto) Absolute Neuts (auto) Absolute Lymphs (auto) Total Counted Neutrophils % (Manual) Band Neutrophils % Lymphocytes % (Manual) Monocytes % (Manual) Eosinophils % (Manual) Metamyelocytes % Myelocytes % Promyelocytes % Diff Path Review Toxic Granulation Platelet Estimate RBC Morphology APTT 85.9 H 71.7 H Specimen Type Sample Site pH Bicarbonate Actual Total CO2 Base Excess O2 Saturation O2 % ABG pCO2 ABG pO2 Erlin Test O2 Delivery Device Vent Mode POC PEEP POC Pressure Suppt Sodium Potassium Chloride Carbon Dioxide Anion Gap BUN Creatinine Estim Creat Clear Calc Est GFR (MDRD) Af Amer Est GFR (MDRD) Non-Af BUN/Creatinine Ratio Glucose Calcium Total Bilirubin AST ALT Alkaline Phosphatase Total Protein Albumin Globulin Albumin/Globulin Ratio POC Glucose 342 H 01/23/20 01/23/20 01/24/20 17:00 21:46 00:15 WBC RBC Hgb Hct MCV MCH MCHC RDW Std Deviation RDW Coeff of Genaro Plt Count MPV Neut % (Auto) Absolute Neuts (auto) Absolute Lymphs (auto) Total Counted Neutrophils % (Manual) Band Neutrophils % Lymphocytes % (Manual) Monocytes % (Manual) Eosinophils % (Manual) Metamyelocytes % Myelocytes % Promyelocytes % Diff Path Review Toxic Granulation Platelet Estimate RBC Morphology APTT 53.1 H Specimen Type Sample Site pH Bicarbonate Actual Total CO2 Base Excess O2 Saturation O2 % ABG pCO2 ABG pO2 Erlin Test O2 Delivery Device Vent Mode POC PEEP POC Pressure Suppt Sodium Potassium Chloride Carbon Dioxide Anion Gap BUN Creatinine Estim Creat Clear Calc Est GFR (MDRD) Af Amer Est GFR (MDRD) Non-Af BUN/Creatinine Ratio Glucose Calcium Total Bilirubin AST ALT Alkaline Phosphatase Total Protein Albumin Globulin Albumin/Globulin Ratio POC Glucose 314 H 270 H 01/24/20 01/24/20 01/24/20 00:19 06:10 06:10 WBC 18.5 H RBC 3.46 L Hgb 9.9 L Hct 31.2 L MCV 90.2 MCH 28.6 MCHC 31.7 L RDW Std Deviation 44.3 H RDW Coeff of Genaro 13.6 Plt Count 321 MPV 9.3 Neut % (Auto) Not Reportable Absolute Neuts (auto) 16.7 H Absolute Lymphs (auto) 0.56 L Total Counted 100 Neutrophils % (Manual) 86 H Band Neutrophils % 4 Lymphocytes % (Manual) 3 L Monocytes % (Manual) 1 Eosinophils % (Manual) Metamyelocytes % 2 H Myelocytes % 3 H Promyelocytes % 1 H Diff Path Review May foll Toxic Granulation Platelet Estimate ADEQUATE RBC Morphology NORM C+C APTT 46.1 H Specimen Type Sample Site pH Bicarbonate Actual Total CO2 Base Excess O2 Saturation O2 % ABG pCO2 ABG pO2 Erlin Test O2 Delivery Device Vent Mode POC PEEP POC Pressure Suppt Sodium Potassium Chloride Carbon Dioxide Anion Gap BUN Creatinine Estim Creat Clear Calc Est GFR (MDRD) Af Amer Est GFR (MDRD) Non-Af BUN/Creatinine Ratio Glucose Calcium Total Bilirubin AST ALT Alkaline Phosphatase Total Protein Albumin Globulin Albumin/Globulin Ratio POC Glucose 230 H 01/24/20 01/24/20 01/24/20 06:10 08:11 12:45 WBC RBC Hgb Hct MCV MCH MCHC RDW Std Deviation RDW Coeff of Genaro Plt Count MPV Neut % (Auto) Absolute Neuts (auto) Absolute Lymphs (auto) Total Counted Neutrophils % (Manual) Band Neutrophils % Lymphocytes % (Manual) Monocytes % (Manual) Eosinophils % (Manual) Metamyelocytes % Myelocytes % Promyelocytes % Diff Path Review Toxic Granulation Platelet Estimate RBC Morphology APTT Specimen Type ART Sample Site R Radial pH 7.50 H Bicarbonate Actual 28.0 H Total CO2 29 Base Excess 5 H O2 Saturation 89 L O2 % 50 ABG pCO2 35.9 ABG pO2 51 L Erlin Test Positive O2 Delivery Device Adult Vent Vent Mode CPAP/PS POC PEEP 5 POC Pressure Suppt 5 Sodium 146 H Potassium 5.3 H Chloride 115 H Carbon Dioxide 29.0 Anion Gap 2 L BUN 81 H Creatinine 1.48 H Estim Creat Clear Calc 55.20 Est GFR (MDRD) Af Amer 64 Est GFR (MDRD) Non-Af 53 L BUN/Creatinine Ratio 54.7 H Glucose 75 Calcium 8.9 Total Bilirubin AST ALT Alkaline Phosphatase Total Protein Albumin Globulin Albumin/Globulin Ratio POC Glucose 132 H 01/24/20 01/24/20 01/24/20 12:55 18:20 18:40 WBC RBC Hgb Hct MCV MCH MCHC RDW Std Deviation RDW Coeff of Genaro Plt Count MPV Neut % (Auto) Absolute Neuts (auto) Absolute Lymphs (auto) Total Counted Neutrophils % (Manual) Band Neutrophils % Lymphocytes % (Manual) Monocytes % (Manual) Eosinophils % (Manual) Metamyelocytes % Myelocytes % Promyelocytes % Diff Path Review Toxic Granulation Platelet Estimate RBC Morphology APTT 50.7 H 65.0 H Specimen Type Sample Site pH Bicarbonate Actual Total CO2 Base Excess O2 Saturation O2 % ABG pCO2 ABG pO2 Erlin Test O2 Delivery Device Vent Mode POC PEEP POC Pressure Suppt Sodium Potassium Chloride Carbon Dioxide Anion Gap BUN Creatinine Estim Creat Clear Calc Est GFR (MDRD) Af Amer Est GFR (MDRD) Non-Af BUN/Creatinine Ratio Glucose Calcium Total Bilirubin AST ALT Alkaline Phosphatase Total Protein Albumin Globulin Albumin/Globulin Ratio POC Glucose 221 H 01/24/20 01/25/20 01/25/20 21:10 00:30 04:20 WBC 19.4 H RBC 3.61 L Hgb 10.3 L Hct 32.5 L MCV 90.0 MCH 28.5 MCHC 31.7 L RDW Std Deviation 43.8 RDW Coeff of Genaro 13.4 Plt Count 338 MPV 9.8 Neut % (Auto) Not Reportable Absolute Neuts (auto) 17.3 H Absolute Lymphs (auto) 0.39 L Total Counted 100 Neutrophils % (Manual) 78 H Band Neutrophils % 11 H Lymphocytes % (Manual) 2 L Monocytes % (Manual) Eosinophils % (Manual) 3 Metamyelocytes % 6 H Myelocytes % Promyelocytes % Diff Path Review May foll Toxic Granulation RARE Platelet Estimate ADEQUATE RBC Morphology NORM C+C APTT 80.4 H Specimen Type Sample Site pH Bicarbonate Actual Total CO2 Base Excess O2 Saturation O2 % ABG pCO2 ABG pO2 Erlin Test O2 Delivery Device Vent Mode POC PEEP POC Pressure Suppt Sodium Potassium Chloride Carbon Dioxide Anion Gap BUN Creatinine Estim Creat Clear Calc Est GFR (MDRD) Af Amer Est GFR (MDRD) Non-Af BUN/Creatinine Ratio Glucose Calcium Total Bilirubin AST ALT Alkaline Phosphatase Total Protein Albumin Globulin Albumin/Globulin Ratio POC Glucose 187 H 01/25/20 04:20 WBC RBC Hgb Hct MCV MCH MCHC RDW Std Deviation RDW Coeff of Genaro Plt Count MPV Neut % (Auto) Absolute Neuts (auto) Absolute Lymphs (auto) Total Counted Neutrophils % (Manual) Band Neutrophils % Lymphocytes % (Manual) Monocytes % (Manual) Eosinophils % (Manual) Metamyelocytes % Myelocytes % Promyelocytes % Diff Path Review Toxic Granulation Platelet Estimate RBC Morphology APTT Specimen Type Sample Site pH Bicarbonate Actual Total CO2 Base Excess O2 Saturation O2 % ABG pCO2 ABG pO2 Erlin Test O2 Delivery Device Vent Mode POC PEEP POC Pressure Suppt Sodium 146 H Potassium 5.5 H Chloride 116 H Carbon Dioxide 25.0 Anion Gap 5 BUN 88 H Creatinine 1.86 H Estim Creat Clear Calc 43.92 Est GFR (MDRD) Af Amer 49 L Est GFR (MDRD) Non-Af 40 L BUN/Creatinine Ratio 47.3 H Glucose 169 H Calcium 8.9 Total Bilirubin 0.40 AST 78 H ALT 57 Alkaline Phosphatase 67 Total Protein 6.3 L Albumin 1.9 L Globulin 4.4 H Albumin/Globulin Ratio 0.4 L POC Glucose Microbiology 01/18/20 16:25 Blood Culture (Wb) - Anticubital Left Blood Culture - Final No growth in 5 days. 01/18/20 16:36 Blood Culture (Wb) - Left Forearm Blood Culture - Final No growth in 5 days. Medical Necessity - Tobacco Use Smoking Status: Former smoker Tobacco Use: Non-smoker Assessment/Plan All Active Problems (Last Updated 09/02/18 @ 13:55 by Katheryn Mosqueda) TUCKER (acute kidney injury) (Acute) a fib with rvr (Acute) COVID-19 virus infection (Acute) Acute respiratory failure with hypoxia (Acute) RECOMMENDATIONS: 1. Continue Precedex for sedation 2. Continue PPI 3. Hold diuretic therapy for today 4. H&H stable. Okay to continue heparin drip for now 5. Wean oxygen as tolerated 6. Spontaneous breathing and awakening trials per protocol IMPRESSIONS: 1. Acute hypoxic respiratory failure secondary to COVID-19 bilateral pneumonia Patient with significant bilateral infiltrates noted on chest x-ray. Patient reportedly is 2 to 3 weeks out from initial positive testing. Unclear if findings on x-ray are new or persisting from initial inflammation. Infectious diseases following. Defer antibiotics/Remdesivir to them. Patient appears to have responded better to the Precedex and was switched back to assist control. Patient unable to tolerate spontaneous breathing trial this morning, but this may be secondary to fever. Patient is not having increased secretions to suggest a ventilator associated event. Clinical suspicion for drug fever secondary to Precedex. 2. Chronic kidney disease stage III to stage IV status post transplant Patient was off of CellCept secondary to COVID-19 diagnosis. Nephrology has been consulted. Further nephrology on reinitiation of immunosuppression. Patient has had immunosuppression held. Patient unable to be transferred to a tertiary center secondary to bed availability. No plans for dialysis. Renal function appears to be at his baseline. 3. Hyperlipidemia/hypertension/elevated troponin/protracted hypoxia Complicates care, management, recovery and prognosis. Patient's blood pressure is marginal at this time, but adequate. We will need to monitor for rebound given discontinuation of Cardizem and clonidine. Nephrology has been consulted. Do anticipate an element of elevated troponin given systemic hypoxia. Patient does not have any findings on telemetry to suggest acute cardio intervention. Patient may require an echocardiogram for evaluation in the future. Patient did not tolerate challenge with Lasix yesterday 4. A. fib/flutter with RVR Patient has been on Cardizem and tolerating well. Amiodarone will interact with immunosuppression. Rate better controlled at this time. Patient is on full anticoagulation. TIME: 32 minutes critical care time spent addressing patient's acute hypoxic respiratory failure, acute kidney injury, review of all data and collaboration with care team (6:45 AM to 7:45 AM) [id number] Critical care first hour
--- NOTE | 2020-01-25 09:03 | PN_ITS ---
Patient Problems: Active and Suspected Problems (Last Updated 09/02/18 @ 13:55 by Katheryn Mosqueda) TUCKER (acute kidney injury) (Acute) a fib with rvr (Acute) COVID-19 virus infection (Acute) Acute respiratory failure with hypoxia (Acute) Subjective: Chief complaint: Follow-up after admission for acute COVID-19 pneumonia and acute hypoxic respiratory failure, atrial flutter with RVR, acute kidney injury on top of stage III chronic kidney disease. Patient seen and examined. No acute events overnight. Reportedly, patient had spike for this morning, was slightly tachycardic and FiO2 went up to 50%. Currently, he is on AC mode, FiO2 of 50% and PEEP of 5. He is alert and awake, responding appropriately. He is febrile, heart rate is around 100, blood pressure stable, on mechanical ventilation. - Physical Exam Vitals/I&O's: Vital Signs Temp Pulse Resp BP Pulse Ox 102.0 F H 105 H 22 H 137/86 H 92 01/25/20 07:00 01/25/20 07:11 01/25/20 07:00 01/25/20 07:00 01/25/20 07:00 Oxygen Flow Rate (L/min) 50 Oxygen Delivery Method Mechanical Ventilator Weight: 166 lb 7.184 oz Body Mass Index (BMI) 26.0 Intake and Output for Last 24 Hours 01/23/20 01/24/20 01/25/20 23:59 23:59 23:59 Intake Total 3058.10 / 3058.10 2631.07 / 2631.07 1240.63 / 1240.63 Output Total 4150 / 4400 3300 / 3300 1700 / 1700 Balance -1091.90 / -1341.90 -668.93 / -668.93 -459.37 / -459.37 General: Alert, Cooperative, - - On mechanical ventilation. HEENT: Atraumatic, PERRLA, EOMI, Normocephalic Oral: Moist Mucosa, No Gingival or Mucosal Lesions/ Ulcerations Neck: Supple, No JVD, Negative Carotid Bruits, Trachea Midline, Thyroid Normal Size and Texture Lungs: Clear to auscultation, No rhonchi, No wheeze, No rales, Diminished Cardiovascular: Regular rate, Regular Rhythm, Normal S1, Normal S2, PMI Normal, Tachycardic Abdomen: Bowel Sounds Present, Soft, Non Tender, Non-Distended, No Hepato- splenomegaly Extremities: No clubbing, No cyanosis, No edema Skin: No rashes, No breakdown Lymphatic: No Cervical, Supraclavicular, or Inguinal Adenopathy Neurological: Cranial nerves II-XII grossly intact, Neuro grossly intact Psych/Mental Status: Normal Affect, Appropriate Microbiology Past 72 Hours 01/18/20 16:25 Blood Culture (Wb) - Anticubital Left Blood Culture - Final No growth in 5 days. 01/18/20 16:36 Blood Culture (Wb) - Left Forearm Blood Culture - Final No growth in 5 days. Laboratory Results 01/24/20 12:45: POC Glucose 132 H 01/24/20 12:55: APTT 50.7 H 01/24/20 18:20: POC Glucose 221 H 01/24/20 18:40: APTT 65.0 H 01/24/20 21:10: POC Glucose 187 H 01/25/20 00:30: APTT 80.4 H 01/25/20 04:20: WBC 19.4 H, RBC 3.61 L, Hgb 10.3 L, Hct 32.5 L, MCV 90.0, MCH 28.5, MCHC 31.7 L, RDW Std Deviation 43.8, RDW Coeff of Genaro 13.4, Plt Count 338, MPV 9.8, Neut % (Auto) Not Reportable, Absolute Neuts (auto) 17.3 H, Absolute Lymphs (auto) 0.39 L, Total Counted 100, Neutrophils % (Manual) 78 H, Band Neutrophils % 11 H, Lymphocytes % (Manual) 2 L, Eosinophils % (Manual) 3, Metamyelocytes % 6 H, Diff Path Review May foll, Toxic Granulation RARE, Platelet Estimate ADEQUATE, RBC Morphology NORM C+C 01/25/20 04:20: Sodium 146 H, Potassium 5.5 H, Chloride 116 H, Carbon Dioxide 25.0, Anion Gap 5, BUN 88 H, Creatinine 1.86 H, Estim Creat Clear Calc 43.92, Est GFR (MDRD) Af Amer 49 L, Est GFR (MDRD) Non-Af 40 L, BUN/Creatinine Ratio 47.3 H, Glucose 169 H, Calcium 8.9, Total Bilirubin 0.40, AST 78 H, ALT 57, Alkaline Phosphatase 67, Total Protein 6.3 L, Albumin 1.9 L, Globulin 4.4 H, Albumin/Globulin Ratio 0.4 L Current Medications Acetaminophen (Acetaminophen 650 Mg/20 Ml Udc) 650 mg GT Q6H PRN PRN PRN Reason: Pain Score 1-10/Temp > 100.7 F Last Admin: 01/25/20 00:22 Dose: 650 mg Documented by: Albuterol Sulfate (Albuterol 2.5 Mg/3 Ml Vial.Neb.) 2.5 mg INHALATION Q2H PRN PRN PRN Reason: WHEEZING Aspirin (Aspirin 81 Mg Tab.Chew) 81 mg GT DAILY [facility] Last Admin: 01/24/20 10:18 Dose: 81 mg Documented by: Chlorhexidine Gluconate (Chlorhexidine 15 Ml) 15 ml PO BID [facility] Last Admin: 01/25/20 02:48 Dose: 15 ml Documented by: Dexamethasone Sodium Phosphate (Dexamethasone 10 Mg/Ml Vial) 6 mg IV DAILY [facility] Stop: 01/27/20 10:01 Last Admin: 01/24/20 10:18 Dose: 6 mg Documented by: Heparin Sodium (Porcine) (Heparin Injection (Vial) 5,000 Unit/Ml Vial) 0 unit IV UD PRN; Protocol PRN Reason: dose adjustment Last Admin: 01/24/20 14:08 Dose: 1,000 unit Documented by: Heparin Sodium/Dextrose () 25,000 units in 250 mls @ 11 mls/hr IV .[id number] [facility]; Protocol Last Admin: 01/25/20 02:30 Dose: 800 units/hr, 8 mls/hr Documented by: Fentanyl Citrate 1,000 mcg/ (Sodium Chloride) 100 mls @ 2.5 mls/hr CONT INF .Q40H [facility]; Protocol Last Titration: 01/25/20 07:00 Dose: 100 mcg/hr, 10 mls/hr Documented by: Sodium Chloride () 250 mls @ 15 mls/hr IV .[id number] PRN PRN Reason: Saline Flush Sodium Chloride () 250 mls @ 15 mls/hr IV .[id number] PRN PRN Reason: Additional IVPB Infusion Enteral Nutritional Formula (Vital Af 1.2 José Miguel Liquid) 1,000 mls @ 60 mls/hr GT .[id number] [facility] Last Admin: 01/25/20 03:35 Dose: Not Given Documented by: Pantoprazole Sodium 40 mg/ (Sodium Chloride) 110 mls @ 330 mls/hr IV Q12 [facility] Last Infusion: 01/25/20 03:07 Dose: Infused Documented by: Dexmedetomidine HCl 1,000 mcg/ (Sodium Chloride) 250 mls @ 9.438 mls/hr CONT INF .[id number] [facility]; Protocol Last Titration: 01/25/20 07:00 Dose: 1.5 mcg/kg/hr, 28.3 mls/hr Documented by: Insulin Glargine (Insulin Glargine 100 Units/Ml Pen) 20 units SC BID [facility] Last Admin: 01/25/20 00:21 Dose: 20 u Documented by: Insulin Human Lispro (Insulin Lispro 100 Unit/Ml Insuln.Pen) 0 unit SC Q6 [facility]; Protocol Last Admin: 01/25/20 05:47 Dose: 3 units Documented by: Metoprolol Tartrate (Metoprolol Tartrate 25 Mg Tablet) 25 mg PO BID [facility] Last Admin: 01/25/20 00:13 Dose: 25 mg Documented by: Ondansetron HCl (Ondansetron 4 Mg/2 Ml Vial) 4 mg IV Q8H PRN PRN PRN Reason: NAUSEA/VOMITING Senna/Docusate Sodium (Senna/Docusate Sodium 1 Tablet) 2 tablet PO BID [facility] Last Admin: 01/25/20 00:13 Dose: 2 tablet Documented by: Sodium Chloride (0.9% Saline Lock 10 Ml Syringe) 10 - 40 ml IV UD PRN PRN Reason: SALINE FLUSH Last Admin: 01/25/20 04:24 Dose: 20 ml Documented by: Medical Necessity - Tobacco Use Smoking Status: Former smoker Tobacco Use: Non-smoker Assessment/Plan All Active Problems (Last Updated 09/02/18 @ 13:55 by Katheryn Mosqueda) TUCKER (acute kidney injury) (Acute) a fib with rvr (Acute) COVID-19 virus infection (Acute) Acute respiratory failure with hypoxia (Acute) This is a 54 years old male patient presented to the emergency room because of shortness of breath, found to have COVID-19 pneumonia and his pulse ox dropped while patient was in the ED, needed to be intubated and started on mechanical ventilation. After admission, he developed TUCKER on CKD requiring hemodialysis as well as new onset A. fib/flutter with RVR. #1 acute bilateral COVID-19 pneumonia: Remains on IV Decadron, IV heparin drip. He completed 5 days of remdesivir. Remains on mechanical ventilation, spontaneous breathing trial attempted this morning but patient was febrile tachycardic, was discontinued. Currently, he is on FiO2 50% and PEEP of 5. He is on IV Precedex drip for sedation. Again, he is having persistent fevers, slight tachycardia, blood pressure is maintained. Sputum culture showed no growth. Blood cultures showed no growth in 48 hours. Critical care and infectious disease On the case. Plan to continue same treatment. #2 acute hypoxic respiratory failure: Secondary to #1. Currently, on mechanical ventilation, was febrile and tachycardic this morning. Now, he is on AC mode with FiO2 50% and PEEP of 5. He is awake and alert. Plan as above. #3 abnormal cardiac enzymes: Likely due to demand ischemia. EKG without acute segment changes. #4 acute kidney injury on top of stage III chronic kidney disease: In the setting of history of renal transplant. Status post hemodialysis x2. Today, BUN is 88 and creatinine is 1.86, it is up from yesterday. CellCept and tacrolimus held. He is on IV Decadron. Nephrology on the case. #5 new onset atrial flutter/fibrillation: Today, is sinus tachycardia. He is off Cardizem drip. Heart rate has been around 100, he is on metoprolol twice daily. #6 hypertension: Currently, blood pressure stable. Antihypertensive medications held. #7 hyperlipidemia: Statins held. #8 DVT prophylaxis: Remained on IV heparin drip. This note was generated with [employer] dictation software. It may contain incorrect words, spelling, and punctuation that were not noted in checking the note before signing. Inpatient E&M: 10137 Subs Hosp L3
[2020-01-25] MEDS: Aspirin 81 MG TAB.CHEW GT (10:01)
[2020-01-25] MEDS: dexAMETHasone 10 MG/ML Vial 6 MG IV (10:02)
[2020-01-25] MEDS: Dexmedetomidine 1,000 mcg in 0.9% NS 240 mL 28.3 MCG CONT INF ×2 (10:27→19:18)
[2020-01-25 12:05] LABS: Partial Thromboplast Time 101.5 Seconds (24.1-36.2)
[2020-01-25 12:25] LABS: Bedside Glucose 164 mg/dL (70-110)
[2020-01-25 12:36] LABS: Bedside Glucose 163 mg/dL (70-110)
[2020-01-25] MEDS: Sodium Polystyrene Sulfonate 15 GM/60 ML UDC PO (16:19)
[2020-01-25] MEDS: Vital AF 1.2 Cal Liquid 1,000 ML 60 ML GT (16:49)
[2020-01-25 19:09] LABS: Partial Thromboplast Time 50.8 Seconds (24.1-36.2)
[2020-01-25] MEDS: Heparin Injection (Vial) 5,000 UNIT/ML VIAL IV (20:08)
[2020-01-25 23:16] LABS: Bedside Glucose 229 mg/dL (70-110)
[2020-01-25 23:20] LABS: Bedside Glucose 132 mg/dL (70-110)
[2020-01-26] VITALS (45 sets, daily range): BP systolic 69–165; BP diastolic 46–103; PULSE 75–200; RESP 12–38; TEMP 37.2–38.9; O2SAT 85–99
[2020-01-26] MEDS: 0.9% Saline Lock 10 ML Syringe IV ×3 (02:21→04:14)
[2020-01-26 02:32] LABS: Hematocrit 33.2 % (40-54); Hemoglobin 10.1 g/dL (13.0-16.5); Mean Corp Hgb Conc 30.4 g/dL (32-36); Mean Corpuscular Hgb 28.4 pg (27.0-32.0); Mean Corpuscular Volume 93.3 fL (80-94); Mean Platelet Vol. 10.2 fl (6.2-12.0); POSITIVE COUNT YES; POSITIVE MORPHOLOGY YES; Platelet Count 309 K/mm3 (150-450); RBC Distribution Width CV 13.9 % (11.6-14.6); RBC Distribution Width SD 46.9 fl (35.1-43.9); Red Blood Count 3.56 M/mm3 (4.6-6.2); White Blood Count 22.2 K/mm3 (4.4-11.0)
[2020-01-26 02:38] LABS: Differential Indicated MANUAL DIFF
[2020-01-26 02:41] LABS: Partial Thromboplast Time 65.7 Seconds (24.1-36.2)
[2020-01-26 02:55] LABS: Anion Gap 3 (5-15); BUN 74 mg/dL (7-18); BUN/Creat Ratio 49.3 RATIO (10-20); Calcium,Total 8.7 mg/dL (8.5-10.1); Chloride 120 mmol/L (98-107); EST Glomerular Filtration Rate 52 mL/min (>60); Est Glom Filt Rate - Afr Amer 63 mL/min (>60); Estimated Creatinine Clearance 54.47 ml/min; Glucose 117 mg/dL (74-106); Potassium 6.1 mmol/L (3.5-5.1); Sodium Level 147 mmol/L (136-145)
[2020-01-26 03:00] LABS: Absolute Lymphocyte Count 0.44 X10^3/uL (0.83-4.51); Absolute Neutrophil Count 21.1 X10^3/uL (2.0-7.7); Lymphocyte 2 % (19-41); Metamyelocyte 2 % (0-1); Monocyte 1 % (0-10); Neutrophil-Band 3 % (0-5); Neutrophil-Segmented 92 % (47-70); Platelet Estimate ADEQUATE (ADEQ); Total Cells Counted 100 (MANUAL DIFF)
[2020-01-26 03:01] LABS: Hypochromasia 2+; Red Cell Morphology N CYTIC NORMAL (NORM C&C)
--- NOTE | 2020-01-26 03:20 | EKG12_ITS ---
Test Reason : HIGH POTASSIUM Blood Pressure : / mmHG Vent. Rate : 169 BPM Atrial Rate : 096 BPM P-R Int : 000 ms QRS Dur : 104 ms QT Int : 254 ms P-R-T Axes : 000 021 -44 degrees QTc Int : 425 ms Atrial fibrillation with premature ventricular or aberrantly conducted complexes [id number] Nonspecific ST/T wave abnormailty Abnormal ECG Confirmed by EMPERATRIZ DAVILA, ELIZABETH ([id number]), website/blog editor NGHIA DENSON ([id number]) on 01/29/2020 8:13:06 AM Referred By: SILVINO Confirmed By:ELIZABETH AWAN MD
[2020-01-26] MEDS: Dexmedetomidine 1,000 mcg in 0.9% NS 240 mL 28.3 MCG CONT INF (03:21)
[2020-01-26] MEDS: Furosemide 100 MG/10 ML Vial 80 MG IV (03:50)
[2020-01-26] MEDS: Insulin Lispro 5 UNIT in Syringe 0 ML 6 UNIT IV (03:53)
[2020-01-26] MEDS: Dextrose 50%-Water 25 GM/50 ML DISP.SYRIN IV (03:53)
[2020-01-26] MEDS: Sodium Polystyrene Sulfonate 15 GM/60 ML UDC 30 GM PO (03:58)
[2020-01-26] MEDS: dilTIAZem 25 MG/5 ML Vial 20 MG IV BOLUS (04:10)
[2020-01-26 04:31] LABS: Magnesium 2.3 mg/dL (1.6-2.6)
[2020-01-26] MEDS: TITRATION PARAMETER CHANGE 1 EACH IV (05:15)
[2020-01-26] MEDS: Insulin Lispro 100 UNIT/ML INSULN.PEN SC ×3 (05:36→17:55)
[2020-01-26] MEDS: Polyethylene Glycol 3350 17 GM PACKET 34 GM PO (05:37)
[2020-01-26 05:55] LABS: Bedside Glucose 194 mg/dL (70-110)
--- NOTE | 2020-01-26 06:25 | PN_ITS ---
Subjective: The patient was seen and examined at the bedside this morning. Events from the last 24 hours have been reviewed. The patient remains febrile with a T-max last night of 102 ?F. Last night, the patient developed atrial fibrillation with a rapid ventricular rate and had to be started on Cardizem. In light of the patient's cardiac dysrhythmia, the patient decompensated from a respiratory perspective. The patient is currently on assist control mode of mechanical ventilation with an FiO2 requirement of 75% and PEEP of 5. The patient remains on a continuous heparin drip. He is currently sedated on both Precedex and fentanyl. He is tolerating tube feeds without issue. The patient is currently documented to be overall net -1.6 L for the hospital admission. White count remains elevated at 22,000. Potassium is high this morning at 6.1. This was treated medically overnight with insulin, Kayexalate and calcium gluconate. Objective: The patient's most recent lab work, culture data and imaging studies have all been personally reviewed. Surface echocardiogram from November 2018 revealed normal LV size with an ejection fraction of 55%. Pulmonary artery systolic pressure was estimated to be 25 to 30 mmHg. Coronavirus testing was positive on January 01. Sputum and blood cultures have shown no growth to date. General: - - Remains intubated, sedated and mechanically ventilated. No ventilator dyssynchrony noted. HEENT: Atraumatic, PERRLA, Normocephalic Oral: No Gingival or Mucosal Lesions/ Ulcerations Neck: Supple, No Nodes, Trachea Midline Lungs: No rhonchi, No wheeze, No rales, Diminished Cardiovascular: Normal S1, Normal S2, Irregular Rate, Tachycardic Abdomen: Bowel Sounds Present, Soft, Non Tender Extremities: No clubbing, No cyanosis, No edema Skin: No breakdown Musculoskeletal: No Tenderness to Palpation of Joints or Extremities Lymphatic: No Cervical, Supraclavicular, or Inguinal Adenopathy Neurological: - - No focal neurological deficits. Currently sedated on the ventilator. Vital Signs Temp Pulse Resp BP Pulse Ox 101.8 F H 114 H 24 H 124/69 H 94 01/26/20 06:00 01/26/20 06:00 01/26/20 06:00 01/26/20 06:00 01/26/20 06:00 Oxygen Flow Rate (L/min) 50 Oxygen Delivery Method Mechanical Ventilator Weight: 169 lb 1.513 oz Body Mass Index (BMI) 26.0 Intake and Output for Last 24 Hours 01/24/20 01/25/20 01/26/20 23:59 23:59 23:59 Intake Total 2631.07 / 2631.07 3736.71 / 3775.01 1098.05 / 1098.05 Output Total 3300 / 3300 4199 / 4199 1850 / 1850 Balance -668.93 / -668.93 -462.29 / -423.99 -751.95 / -751.95 Labs (Last 48 Hours) 01/24/20 01/24/20 01/24/20 06:10 06:10 06:10 WBC 18.5 H RBC 3.46 L Hgb 9.9 L Hct 31.2 L MCV 90.2 MCH 28.6 MCHC 31.7 L RDW Std Deviation 44.3 H RDW Coeff of Genaro 13.6 Plt Count 321 MPV 9.3 Neut % (Auto) Not Reportable Absolute Neuts (auto) 16.7 H Absolute Lymphs (auto) 0.56 L Total Counted 100 Neutrophils % (Manual) 86 H Band Neutrophils % 4 Lymphocytes % (Manual) 3 L Monocytes % (Manual) 1 Eosinophils % (Manual) Metamyelocytes % 2 H Myelocytes % 3 H Promyelocytes % 1 H Diff Path Review May foll Toxic Granulation Platelet Estimate ADEQUATE RBC Morphology NORM C+C Hypochromasia APTT 46.1 H Specimen Type Sample Site pH Bicarbonate Actual Total CO2 Base Excess O2 Saturation O2 % ABG pCO2 ABG pO2 Erlin Test O2 Delivery Device Vent Mode POC PEEP POC Pressure Suppt Sodium 146 H Potassium 5.3 H Chloride 115 H Carbon Dioxide 29.0 Anion Gap 2 L BUN 81 H Creatinine 1.48 H Estim Creat Clear Calc 55.20 Est GFR (MDRD) Af Amer 64 Est GFR (MDRD) Non-Af 53 L BUN/Creatinine Ratio 54.7 H Glucose 75 Calcium 8.9 Magnesium Total Bilirubin AST ALT Alkaline Phosphatase Total Protein Albumin Globulin Albumin/Globulin Ratio POC Glucose 01/24/20 01/24/20 01/24/20 08:11 12:45 12:55 WBC RBC Hgb Hct MCV MCH MCHC RDW Std Deviation RDW Coeff of Genaro Plt Count MPV Neut % (Auto) Absolute Neuts (auto) Absolute Lymphs (auto) Total Counted Neutrophils % (Manual) Band Neutrophils % Lymphocytes % (Manual) Monocytes % (Manual) Eosinophils % (Manual) Metamyelocytes % Myelocytes % Promyelocytes % Diff Path Review Toxic Granulation Platelet Estimate RBC Morphology Hypochromasia APTT 50.7 H Specimen Type ART Sample Site R Radial pH 7.50 H Bicarbonate Actual 28.0 H Total CO2 29 Base Excess 5 H O2 Saturation 89 L O2 % 50 ABG pCO2 35.9 ABG pO2 51 L Erlin Test Positive O2 Delivery Device Adult Vent Vent Mode CPAP/PS POC PEEP 5 POC Pressure Suppt 5 Sodium Potassium Chloride Carbon Dioxide Anion Gap BUN Creatinine Estim Creat Clear Calc Est GFR (MDRD) Af Amer Est GFR (MDRD) Non-Af BUN/Creatinine Ratio Glucose Calcium Magnesium Total Bilirubin AST ALT Alkaline Phosphatase Total Protein Albumin Globulin Albumin/Globulin Ratio POC Glucose 132 H 01/24/20 01/24/20 01/24/20 18:20 18:40 21:10 WBC RBC Hgb Hct MCV MCH MCHC RDW Std Deviation RDW Coeff of Genaro Plt Count MPV Neut % (Auto) Absolute Neuts (auto) Absolute Lymphs (auto) Total Counted Neutrophils % (Manual) Band Neutrophils % Lymphocytes % (Manual) Monocytes % (Manual) Eosinophils % (Manual) Metamyelocytes % Myelocytes % Promyelocytes % Diff Path Review Toxic Granulation Platelet Estimate RBC Morphology Hypochromasia APTT 65.0 H Specimen Type Sample Site pH Bicarbonate Actual Total CO2 Base Excess O2 Saturation O2 % ABG pCO2 ABG pO2 Erlin Test O2 Delivery Device Vent Mode POC PEEP POC Pressure Suppt Sodium Potassium Chloride Carbon Dioxide Anion Gap BUN Creatinine Estim Creat Clear Calc Est GFR (MDRD) Af Amer Est GFR (MDRD) Non-Af BUN/Creatinine Ratio Glucose Calcium Magnesium Total Bilirubin AST ALT Alkaline Phosphatase Total Protein Albumin Globulin Albumin/Globulin Ratio POC Glucose 221 H 187 H 01/25/20 01/25/20 01/25/20 00:18 00:30 04:20 WBC 19.4 H RBC 3.61 L Hgb 10.3 L Hct 32.5 L MCV 90.0 MCH 28.5 MCHC 31.7 L RDW Std Deviation 43.8 RDW Coeff of Genaro 13.4 Plt Count 338 MPV 9.8 Neut % (Auto) Not Reportable Absolute Neuts (auto) 17.3 H Absolute Lymphs (auto) 0.39 L Total Counted 100 Neutrophils % (Manual) 78 H Band Neutrophils % 11 H Lymphocytes % (Manual) 2 L Monocytes % (Manual) Eosinophils % (Manual) 3 Metamyelocytes % 6 H Myelocytes % Promyelocytes % Diff Path Review May foll Toxic Granulation RARE Platelet Estimate ADEQUATE RBC Morphology NORM C+C Hypochromasia APTT 80.4 H Specimen Type Sample Site pH Bicarbonate Actual Total CO2 Base Excess O2 Saturation O2 % ABG pCO2 ABG pO2 Erlin Test O2 Delivery Device Vent Mode POC PEEP POC Pressure Suppt Sodium Potassium Chloride Carbon Dioxide Anion Gap BUN Creatinine Estim Creat Clear Calc Est GFR (MDRD) Af Amer Est GFR (MDRD) Non-Af BUN/Creatinine Ratio Glucose Calcium Magnesium Total Bilirubin AST ALT Alkaline Phosphatase Total Protein Albumin Globulin Albumin/Globulin Ratio POC Glucose 164 H 01/25/20 01/25/20 01/25/20 04:20 10:15 11:20 WBC RBC Hgb Hct MCV MCH MCHC RDW Std Deviation RDW Coeff of Genaro Plt Count MPV Neut % (Auto) Absolute Neuts (auto) Absolute Lymphs (auto) Total Counted Neutrophils % (Manual) Band Neutrophils % Lymphocytes % (Manual) Monocytes % (Manual) Eosinophils % (Manual) Metamyelocytes % Myelocytes % Promyelocytes % Diff Path Review Toxic Granulation Platelet Estimate RBC Morphology Hypochromasia APTT Cancelled 101.5 H* Specimen Type Sample Site pH Bicarbonate Actual Total CO2 Base Excess O2 Saturation O2 % ABG pCO2 ABG pO2 Erlin Test O2 Delivery Device Vent Mode POC PEEP POC Pressure Suppt Sodium 146 H Potassium 5.5 H Chloride 116 H Carbon Dioxide 25.0 Anion Gap 5 BUN 88 H Creatinine 1.86 H Estim Creat Clear Calc 43.92 Est GFR (MDRD) Af Amer 49 L Est GFR (MDRD) Non-Af 40 L BUN/Creatinine Ratio 47.3 H Glucose 169 H Calcium 8.9 Magnesium Total Bilirubin 0.40 AST 78 H ALT 57 Alkaline Phosphatase 67 Total Protein 6.3 L Albumin 1.9 L Globulin 4.4 H Albumin/Globulin Ratio 0.4 L POC Glucose 01/25/20 01/25/20 01/25/20 12:27 16:09 18:30 WBC RBC Hgb Hct MCV MCH MCHC RDW Std Deviation RDW Coeff of Genaro Plt Count MPV Neut % (Auto) Absolute Neuts (auto) Absolute Lymphs (auto) Total Counted Neutrophils % (Manual) Band Neutrophils % Lymphocytes % (Manual) Monocytes % (Manual) Eosinophils % (Manual) Metamyelocytes % Myelocytes % Promyelocytes % Diff Path Review Toxic Granulation Platelet Estimate RBC Morphology Hypochromasia APTT 50.8 H Specimen Type Sample Site pH Bicarbonate Actual Total CO2 Base Excess O2 Saturation O2 % ABG pCO2 ABG pO2 Erlin Test O2 Delivery Device Vent Mode POC PEEP POC Pressure Suppt Sodium Potassium Chloride Carbon Dioxide Anion Gap BUN Creatinine Estim Creat Clear Calc Est GFR (MDRD) Af Amer Est GFR (MDRD) Non-Af BUN/Creatinine Ratio Glucose Calcium Magnesium Total Bilirubin AST ALT Alkaline Phosphatase Total Protein Albumin Globulin Albumin/Globulin Ratio POC Glucose 163 H 229 H 01/25/20 01/26/20 01/26/20 22:57 02:15 02:15 WBC 22.2 H RBC 3.56 L Hgb 10.1 L Hct 33.2 L MCV 93.3 MCH 28.4 MCHC 30.4 L RDW Std Deviation 46.9 H RDW Coeff of Genaro 13.9 Plt Count 309 MPV 10.2 Neut % (Auto) Not Reportable Absolute Neuts (auto) 21.1 H Absolute Lymphs (auto) 0.44 L Total Counted 100 Neutrophils % (Manual) 92 H Band Neutrophils % 3 Lymphocytes % (Manual) 2 L Monocytes % (Manual) 1 Eosinophils % (Manual) Metamyelocytes % 2 H Myelocytes % Promyelocytes % Diff Path Review May foll Toxic Granulation Platelet Estimate ADEQUATE RBC Morphology N CYTIC Hypochromasia 2+ APTT 65.7 H Specimen Type Sample Site pH Bicarbonate Actual Total CO2 Base Excess O2 Saturation O2 % ABG pCO2 ABG pO2 Erlin Test O2 Delivery Device Vent Mode POC PEEP POC Pressure Suppt Sodium Potassium Chloride Carbon Dioxide Anion Gap BUN Creatinine Estim Creat Clear Calc Est GFR (MDRD) Af Amer Est GFR (MDRD) Non-Af BUN/Creatinine Ratio Glucose Calcium Magnesium Total Bilirubin AST ALT Alkaline Phosphatase Total Protein Albumin Globulin Albumin/Globulin Ratio POC Glucose 132 H 01/26/20 01/26/20 01/26/20 02:15 02:15 05:36 WBC RBC Hgb Hct MCV MCH MCHC RDW Std Deviation RDW Coeff of Genaro Plt Count MPV Neut % (Auto) Absolute Neuts (auto) Absolute Lymphs (auto) Total Counted Neutrophils % (Manual) Band Neutrophils % Lymphocytes % (Manual) Monocytes % (Manual) Eosinophils % (Manual) Metamyelocytes % Myelocytes % Promyelocytes % Diff Path Review Toxic Granulation Platelet Estimate RBC Morphology Hypochromasia APTT Specimen Type Sample Site pH Bicarbonate Actual Total CO2 Base Excess O2 Saturation O2 % ABG pCO2 ABG pO2 Erlin Test O2 Delivery Device Vent Mode POC PEEP POC Pressure Suppt Sodium 147 H Potassium 6.1 H* Chloride 120 H Carbon Dioxide 24.0 Anion Gap 3 L BUN 74 H Creatinine 1.50 H Estim Creat Clear Calc 54.47 Est GFR (MDRD) Af Amer 63 Est GFR (MDRD) Non-Af 52 L BUN/Creatinine Ratio 49.3 H Glucose 117 H Calcium 8.7 Magnesium 2.3 Total Bilirubin AST ALT Alkaline Phosphatase Total Protein Albumin Globulin Albumin/Globulin Ratio POC Glucose 194 H Microbiology 01/18/20 16:25 Blood Culture (Wb) - Anticubital Left Blood Culture - Final No growth in 5 days. 01/18/20 16:36 Blood Culture (Wb) - Left Forearm Blood Culture - Final No growth in 5 days. Clinical Impression(s) from Imaging Studies Chest X-Ray 01/18/20 17:00 IMPRESSION: 1. Extensive multilobar airspace disease suggesting pneumonia, including viral causes. Electronically Signed: Tyrone Borrero MD ([place]) at 17:22 EST , Service support , Chest X-Ray 01/18/20 20:40 KUB X-Ray 01/23/20 00:01 IMPRESSION: 1. Appropriate positioning of supportive devices 2. Normal bowel gas pattern Electronically Signed: Jonathan Aguilar MD at 1:57 EST Tel , Service support , Medical Necessity - Tobacco Use Smoking Status: Former smoker Tobacco Use: Non-smoker Assessment/Plan All Active Problems (Last Updated 09/02/18 @ 13:55 by Katheryn Mosqueda) TUCKER (acute kidney injury) (Acute) a fib with rvr (Acute) COVID-19 virus infection (Acute) Acute respiratory failure with hypoxia (Acute) RECOMMENDATIONS: 1. Wean FiO2 and PEEP to maintain oxygen saturations at or above 90%. 2. Tacrolimus management per nephrology recommendations. 3. Administer amiodarone bolus and discontinue Cardizem drip. 4. Recheck potassium. 5. D5W given rising sodium and chloride. 6. Continue Decadron to complete treatment course. 7. Continue tube feeds as tolerated. 8. Continue heparin drip. 9. Start Levophed, if needed, to maintain hemodynamic stability. IMPRESSIONS: 1. Acute hypoxemic respiratory failure secondary to COVID-19 pneumonia Continue current supportive measures and wean FiO2 and PEEP to maintain oxygen saturations at or above 90%. The patient has completed a treatment course of remdesivir and remains on Decadron. Consider diuresis as tolerated by hemodynamics and renal function. Continue tube feeds as tolerated. 2. Acute on chronic kidney disease status post renal transplantation Improving. Defer ongoing hemodialysis need to nephrology. Defer tacrolimus management per nephrology recommendations. 3. Paroxysmal atrial fibrillation with RVR Continue heparin infusion as tolerated. Cardizem can be discontinued. Administer amiodarone bolus x1. 4. Hypertension/hyperlipidemia/elevated troponin Complicates care, management, recovery and prognosis. Continue to hold antihypertensives for now. TIME: 34 minutes of critical care time, independent of procedures, was spent addressing the patient's acute hypoxemic respiratory failure secondary to COVID- 19 pneumonia, acute on chronic kidney disease, paroxysmal atrial fibrillation, review of all data and collaboration with the care team. [id number]) [id number] Critical care first hour
[2020-01-26] MEDS: Acetaminophen 650 MG/20 ML UDC GT (08:00)
[2020-01-26 08:51] LABS: Partial Thromboplast Time 198.7 Seconds (24.1-36.2)
--- NOTE | 2020-01-26 08:55 | NURSING ---
critical PTT value as reported by lab given to primary RN
[2020-01-26] MEDS: dexAMETHasone 10 MG/ML Vial 6 MG IV (09:50)
[2020-01-26] MEDS: Aspirin 81 MG TAB.CHEW GT (09:50)
[2020-01-26] MEDS: Vital AF 1.2 Cal Liquid 1,000 ML 60 ML GT (09:50)
[2020-01-26] MEDS: Chlorhexidine 15 ML PO ×2 (09:53→20:15)
--- NOTE | 2020-01-26 09:58 | PCM.PN.REN ---
Patient Problems: Active and Suspected Problems (Last Updated 09/02/18 @ 13:55 by Katheryn Mosqueda) TUCKER (acute kidney injury) (Acute) a fib with rvr (Acute) COVID-19 virus infection (Acute) Acute respiratory failure with hypoxia (Acute) Subjective: intubated cannot do ROS - Physical Exam Vitals/I&O's: Vital Signs Temp Pulse Resp BP Pulse Ox 101.9 F H 85 18 94/56 L 99 01/26/20 09:00 01/26/20 09:54 01/26/20 09:00 01/26/20 09:54 01/26/20 09:00 Oxygen Flow Rate (L/min) 50 Oxygen Delivery Method Mechanical Ventilator Weight: 76.7 kg Body Mass Index (BMI) 26.0 Intake and Output for Last 24 Hours 01/24/20 01/25/20 01/26/20 23:59 23:59 23:59 Intake Total 2631.07 / 2631.07 3736.71 / 3775.01 2043.18 / 2043.18 Output Total 3300 / 3300 4199 / 4199 2049 / 2049 Balance -668.93 / -668.93 -462.29 / -423.99 -6.82 / -6.82 General: - - PE deferred to preserve PPE and prevent further transmission of COVID-19 Microbiology Past 72 Hours 01/18/20 16:25 Blood Culture (Wb) - Anticubital Left Blood Culture - Final No growth in 5 days. 01/18/20 16:36 Blood Culture (Wb) - Left Forearm Blood Culture - Final No growth in 5 days. Laboratory Results 01/25/20 00:18: POC Glucose 164 H 01/25/20 10:15: APTT Cancelled 01/25/20 11:20: APTT 101.5 H* 01/25/20 12:27: POC Glucose 163 H 01/25/20 16:09: POC Glucose 229 H 01/25/20 18:30: APTT 50.8 H 01/25/20 22:57: POC Glucose 132 H 01/26/20 02:15: APTT 65.7 H 01/26/20 02:15: WBC 22.2 H, RBC 3.56 L, Hgb 10.1 L, Hct 33.2 L, MCV 93.3, MCH 28.4, MCHC 30.4 L, RDW Std Deviation 46.9 H, RDW Coeff of Genaro 13.9, Plt Count 309, MPV 10.2, Neut % (Auto) Not Reportable, Absolute Neuts (auto) 21.1 H, Absolute Lymphs (auto) 0.44 L, Total Counted 100, Neutrophils % (Manual) 92 H, Band Neutrophils % 3, Lymphocytes % (Manual) 2 L, Monocytes % (Manual) 1, Metamyelocytes % 2 H, Diff Path Review June foll, Platelet Estimate ADEQUATE, RBC Morphology N CYTIC, Hypochromasia 2+ 01/26/20 02:15: Sodium 147 H, Potassium 6.1 H*, Chloride 120 H, Carbon Dioxide 24.0, Anion Gap 3 L, BUN 74 H, Creatinine 1.50 H, Estim Creat Clear Calc 54.47, Est GFR (MDRD) Af Amer 63, Est GFR (MDRD) Non-Af 52 L, BUN/Creatinine Ratio 49.3 H, Glucose 117 H, Calcium 8.7 01/26/20 02:15: Magnesium 2.3 01/26/20 05:36: POC Glucose 194 H 01/26/20 08:15: APTT 198.7 H* Current Medications Acetaminophen (Acetaminophen 650 Mg/20 Ml Udc) 650 mg GT Q6H PRN PRN PRN Reason: Pain Score 1-10/Temp > 100.7 F Last Admin: 01/26/20 08:00 Dose: 650 mg Documented by: Albuterol Sulfate (Albuterol 2.5 Mg/3 Ml Vial.Neb.) 2.5 mg INHALATION Q2H PRN PRN PRN Reason: WHEEZING Aspirin (Aspirin 81 Mg Tab.Chew) 81 mg GT DAILY [facility] Last Admin: 01/26/20 09:50 Dose: 81 mg Documented by: Chlorhexidine Gluconate (Chlorhexidine 15 Ml) 15 ml PO BID [facility] Last Admin: 01/26/20 09:53 Dose: 15 ml Documented by: Dexamethasone Sodium Phosphate (Dexamethasone 10 Mg/Ml Vial) 6 mg IV DAILY [facility] Stop: 01/27/20 10:01 Last Admin: 01/26/20 09:50 Dose: 6 mg Documented by: Heparin Sodium (Porcine) (Heparin Injection (Vial) 5,000 Unit/Ml Vial) 0 unit IV UD PRN; Protocol PRN Reason: dose adjustment Last Admin: 01/25/20 20:08 Dose: 1,000 unit Documented by: Heparin Sodium/Dextrose () 25,000 units in 250 mls @ 11 mls/hr IV .[id number] [facility]; Protocol Last Titration: 01/26/20 09:15 Dose: 0 units/hr, 0 mls/hr Documented by: Fentanyl Citrate 1,000 mcg/ (Sodium Chloride) 100 mls @ 2.5 mls/hr CONT INF .Q40H [facility]; Protocol Last Titration: 01/26/20 09:00 Dose: 150 mcg/hr, 15 mls/hr Documented by: Sodium Chloride () 250 mls @ 15 mls/hr IV .[id number] PRN PRN Reason: Saline Flush Sodium Chloride () 250 mls @ 15 mls/hr IV .[id number] PRN PRN Reason: Additional IVPB Infusion Enteral Nutritional Formula (Vital Af 1.2 José Miguel Liquid) 1,000 mls @ 60 mls/hr GT .[id number] [facility] Last Admin: 01/26/20 09:50 Dose: 60 mls/hr Documented by: Pantoprazole Sodium 40 mg/ (Sodium Chloride) 110 mls @ 330 mls/hr IV Q12 [facility] Last Admin: 01/26/20 09:48 Dose: 330 mls/hr Documented by: Dexmedetomidine HCl 1,000 mcg/ (Sodium Chloride) 250 mls @ 9.588 mls/hr CONT INF .Q26H5M [facility]; Protocol Last Titration: 01/26/20 09:00 Dose: 1.5 mcg/kg/hr, 28.8 mls/hr Documented by: Norepinephrine Bitartrate 8 mg (/ Sodium Chloride) 250 mls @ 9.375 mls/hr CONT INF .[id number] [facility]; Protocol Insulin Glargine (Insulin Glargine 100 Units/Ml Pen) 20 units SC BID [facility] Last Admin: 01/26/20 09:53 Dose: 20 u Documented by: Insulin Human Lispro (Insulin Lispro 100 Unit/Ml Insuln.Pen) 0 unit SC Q6 [facility]; Protocol Last Admin: 01/26/20 05:36 Dose: 3 units Documented by: Metoprolol Tartrate (Metoprolol Tartrate 25 Mg Tablet) 25 mg PO BID [facility] Last Admin: 01/26/20 09:54 Dose: Not Given Documented by: Ondansetron HCl (Ondansetron 4 Mg/2 Ml Vial) 4 mg IV Q8H PRN PRN PRN Reason: NAUSEA/VOMITING Polyethylene Glycol (Polyethylene Glycol 3350 17 Gm Packet) 34 gm PO X1 PRN PRN Reason: Bowel Movement Senna/Docusate Sodium (Senna/Docusate Sodium 1 Tablet) 2 tablet PO BID [facility] Last Admin: 01/26/20 09:54 Dose: Not Given Documented by: Sodium Chloride (0.9% Saline Lock 10 Ml Syringe) 10 - 40 ml IV UD PRN PRN Reason: SALINE FLUSH Last Admin: 01/26/20 04:14 Dose: 10 ml Documented by: Tacrolimus (Tacrolimus 0.5 Mg Capsule) 0.5 mg GT BID [facility] Medical Necessity - Tobacco Use Smoking Status: Former smoker Tobacco Use: Non-smoker Assessment/Plan All Active Problems (Last Updated 09/02/18 @ 13:55 by Katheryn Mosqueda) TUCKER (acute kidney injury) (Acute) a fib with rvr (Acute) COVID-19 virus infection (Acute) Acute respiratory failure with hypoxia (Acute) ESRD s/p renal transplant TUCKER ATN with COVID-19 Hypernatremia Hyperkalemia COVID-19 check bmp at 1 PM today to see if the patient will require a brief session of dialysis to lower potassium. Patient has functional AV fistula he got dialysis during this admission. Per transplant supervisor customer complaint service restart tacrolimus 0.5 mg p.o. twice daily today. His home dose is 1 mg p.o. twice daily but for now we will just use the low-dose as above as instructed by transplant nephrology. Gentle D5 water for hypernatremia. Can use diuretics as needed. We will resume CellCept and increased dose of tacrolimus after discussing with transplant nephrology in the future. The patient had A. fib RVR which responded to bolus of amiodarone. Discussed with ICU team during a.m. rounds.
--- NOTE | 2020-01-26 09:59 | PN_ITS ---
Patient Problems: Active and Suspected Problems (Last Updated 09/02/18 @ 13:55 by Katheryn Mosqueda) TUCKER (acute kidney injury) (Acute) a fib with rvr (Acute) COVID-19 virus infection (Acute) Acute respiratory failure with hypoxia (Acute) Subjective: Chief complaint: Follow-up after admission for acute COVID-19 pneumonia and acute hypoxic respiratory failure, atrial flutter with RVR, acute kidney injury on top of stage III chronic kidney disease. Patient seen and examined. This morning, he went into A. fib with RVR again. He had a fever last night of up to 102 Fahrenheit. He was started on IV amiodarone bolus and now, he is back to sinus rhythm. He is alert, opening eyes spontaneously, following commands. He remains on vent, FiO2 65%, PEEP of 5. Currently, he is still febrile, heart rate has been around 100, blood pressure is borderline, on mechanical ventilation. - Physical Exam Vitals/I&O's: Vital Signs Temp Pulse Resp BP Pulse Ox 101.9 F H 85 18 94/56 L 99 01/26/20 09:00 01/26/20 09:54 01/26/20 09:00 01/26/20 09:54 01/26/20 09:00 Oxygen Flow Rate (L/min) 50 Oxygen Delivery Method Mechanical Ventilator Weight: 169 lb 1.513 oz Body Mass Index (BMI) 26.0 Intake and Output for Last 24 Hours 01/24/20 01/25/20 01/26/20 23:59 23:59 23:59 Intake Total 2631.07 / 2631.07 3736.71 / 3775.01 2043.18 / 2043.18 Output Total 3300 / 3300 4199 / 4199 2049 / 2049 Balance -668.93 / -668.93 -462.29 / -423.99 -6.82 / -6.82 General: Alert, Cooperative, - - Mildly short of breath. HEENT: Atraumatic, PERRLA, EOMI, Normocephalic Oral: Moist Mucosa, No Gingival or Mucosal Lesions/ Ulcerations Neck: Supple, No JVD, Negative Carotid Bruits, Trachea Midline, Thyroid Normal Size and Texture Lungs: No rhonchi, No wheeze, No rales, Diminished, - - Diminished breath sounds bilateral, short of breath. Cardiovascular: Regular rate, Regular Rhythm, Normal S1, Normal S2, PMI Normal Abdomen: Bowel Sounds Present, Soft, Non Tender, Non-Distended, No Hepato- splenomegaly Extremities: No clubbing, No cyanosis, No edema Skin: No rashes, No breakdown Lymphatic: No Cervical, Supraclavicular, or Inguinal Adenopathy Neurological: Cranial nerves II-XII grossly intact, Neuro grossly intact Psych/Mental Status: Flat Affect Microbiology Past 72 Hours 01/18/20 16:25 Blood Culture (Wb) - Anticubital Left Blood Culture - Final No growth in 5 days. 01/18/20 16:36 Blood Culture (Wb) - Left Forearm Blood Culture - Final No growth in 5 days. Laboratory Results 01/25/20 00:18: POC Glucose 164 H 01/25/20 10:15: APTT Cancelled 01/25/20 11:20: APTT 101.5 H* 01/25/20 12:27: POC Glucose 163 H 01/25/20 16:09: POC Glucose 229 H 01/25/20 18:30: APTT 50.8 H 01/25/20 22:57: POC Glucose 132 H 01/26/20 02:15: APTT 65.7 H 01/26/20 02:15: WBC 22.2 H, RBC 3.56 L, Hgb 10.1 L, Hct 33.2 L, MCV 93.3, MCH 28.4, MCHC 30.4 L, RDW Std Deviation 46.9 H, RDW Coeff of Genaro 13.9, Plt Count 309, MPV 10.2, Neut % (Auto) Not Reportable, Absolute Neuts (auto) 21.1 H, Absolute Lymphs (auto) 0.44 L, Total Counted 100, Neutrophils % (Manual) 92 H, Band Neutrophils % 3, Lymphocytes % (Manual) 2 L, Monocytes % (Manual) 1, Metamyelocytes % 2 H, Diff Path Review June, Platelet Estimate ADEQUATE, RBC Morphology N CYTIC, Hypochromasia 2+ 01/26/20 02:15: Sodium 147 H, Potassium 6.1 H*, Chloride 120 H, Carbon Dioxide 24.0, Anion Gap 3 L, BUN 74 H, Creatinine 1.50 H, Estim Creat Clear Calc 54.47, Est GFR (MDRD) Af Amer 63, Est GFR (MDRD) Non-Af 52 L, BUN/Creatinine Ratio 49.3 H, Glucose 117 H, Calcium 8.7 01/26/20 02:15: Magnesium 2.3 01/26/20 05:36: POC Glucose 194 H 01/26/20 08:15: APTT 198.7 H* Current Medications Acetaminophen (Acetaminophen 650 Mg/20 Ml Udc) 650 mg GT Q6H PRN PRN PRN Reason: Pain Score 1-10/Temp > 100.7 F Last Admin: 01/26/20 08:00 Dose: 650 mg Documented by: Albuterol Sulfate (Albuterol 2.5 Mg/3 Ml Vial.Neb.) 2.5 mg INHALATION Q2H PRN PRN PRN Reason: WHEEZING Aspirin (Aspirin 81 Mg Tab.Chew) 81 mg GT DAILY [facility] Last Admin: 01/26/20 09:50 Dose: 81 mg Documented by: Chlorhexidine Gluconate (Chlorhexidine 15 Ml) 15 ml PO BID [facility] Last Admin: 01/26/20 09:53 Dose: 15 ml Documented by: Dexamethasone Sodium Phosphate (Dexamethasone 10 Mg/Ml Vial) 6 mg IV DAILY [facility] Stop: 01/27/20 10:01 Last Admin: 01/26/20 09:50 Dose: 6 mg Documented by: Heparin Sodium (Porcine) (Heparin Injection (Vial) 5,000 Unit/Ml Vial) 0 unit IV UD PRN; Protocol PRN Reason: dose adjustment Last Admin: 01/25/20 20:08 Dose: 1,000 unit Documented by: Heparin Sodium/Dextrose () 25,000 units in 250 mls @ 11 mls/hr IV .[id number] [facility]; Protocol Last Titration: 01/26/20 09:15 Dose: 0 units/hr, 0 mls/hr Documented by: Fentanyl Citrate 1,000 mcg/ (Sodium Chloride) 100 mls @ 2.5 mls/hr CONT INF .Q40H [facility]; Protocol Last Titration: 01/26/20 09:00 Dose: 150 mcg/hr, 15 mls/hr Documented by: Sodium Chloride () 250 mls @ 15 mls/hr IV .[id number] PRN PRN Reason: Saline Flush Sodium Chloride () 250 mls @ 15 mls/hr IV .[id number] PRN PRN Reason: Additional IVPB Infusion Enteral Nutritional Formula (Vital Af 1.2 José Miguel Liquid) 1,000 mls @ 60 mls/hr GT .[id number] [facility] Last Admin: 01/26/20 09:50 Dose: 60 mls/hr Documented by: Pantoprazole Sodium 40 mg/ (Sodium Chloride) 110 mls @ 330 mls/hr IV Q12 [facility] Last Admin: 01/26/20 09:48 Dose: 330 mls/hr Documented by: Dexmedetomidine HCl 1,000 mcg/ (Sodium Chloride) 250 mls @ 9.588 mls/hr CONT INF .Q26H5M [facility]; Protocol Last Titration: 01/26/20 09:00 Dose: 1.5 mcg/kg/hr, 28.8 mls/hr Documented by: Norepinephrine Bitartrate 8 mg (/ Sodium Chloride) 250 mls @ 9.375 mls/hr CONT INF .[id number] [facility]; Protocol Insulin Glargine (Insulin Glargine 100 Units/Ml Pen) 20 units SC BID [facility] Last Admin: 01/26/20 09:53 Dose: 20 u Documented by: Insulin Human Lispro (Insulin Lispro 100 Unit/Ml Insuln.Pen) 0 unit SC Q6 [facility]; Protocol Last Admin: 01/26/20 05:36 Dose: 3 units Documented by: Metoprolol Tartrate (Metoprolol Tartrate 25 Mg Tablet) 25 mg PO BID [facility] Last Admin: 01/26/20 09:54 Dose: Not Given Documented by: Ondansetron HCl (Ondansetron 4 Mg/2 Ml Vial) 4 mg IV Q8H PRN PRN PRN Reason: NAUSEA/VOMITING Polyethylene Glycol (Polyethylene Glycol 3350 17 Gm Packet) 34 gm PO X1 PRN PRN Reason: Bowel Movement Senna/Docusate Sodium (Senna/Docusate Sodium 1 Tablet) 2 tablet PO BID [facility] Last Admin: 01/26/20 09:54 Dose: Not Given Documented by: Sodium Chloride (0.9% Saline Lock 10 Ml Syringe) 10 - 40 ml IV UD PRN PRN Reason: SALINE FLUSH Last Admin: 01/26/20 04:14 Dose: 10 ml Documented by: Tacrolimus (Tacrolimus 0.5 Mg Capsule) 0.5 mg GT BID [facility] Medical Necessity - Tobacco Use Smoking Status: Former smoker Tobacco Use: Non-smoker Assessment/Plan All Active Problems (Last Updated 09/02/18 @ 13:55 by Katheryn Mosqueda) TUCKER (acute kidney injury) (Acute) a fib with rvr (Acute) COVID-19 virus infection (Acute) Acute respiratory failure with hypoxia (Acute) This is a 54 years old male patient presented to the emergency room because of shortness of breath, found to have COVID-19 pneumonia and his pulse ox dropped while patient was in the ED, needed to be intubated and started on mechanical ventilation. After admission, he developed TUCKER on CKD requiring hemodialysis as well as new onset A. fib/flutter with RVR. #1 acute bilateral COVID-19 pneumonia: Remains on IV Decadron, IV heparin drip. He completed 5 days of remdesivir. Remains on mechanical ventilation, requiring more FiO2 of up to 65% because of fever and A. fib with RVR. He is on IV Precedex drip for sedation. Currently, he is still febrile, heart rate slowed down, blood pressure is borderline. Sputum culture showed no growth. Blood cultures showed no growth in 48 hours. Critical care and infectious disease On the case. Plan to continue same treatment. #2 acute hypoxic respiratory failure: Secondary to #1. Currently, on mechanical ventilation, still febrile, went back into A. fib with RVR. Currently, he is on FiO2 of 65% and PEEP of 5. He is alert and awake, on IV Precedex drip for sedation. Plan as above. #3 abnormal cardiac enzymes: Likely due to demand ischemia. EKG without acute segment changes. #4 acute kidney injury on top of stage III chronic kidney disease: In the setting of history of renal transplant. Status post hemodialysis x2. Today, BUN is 74 and creatinine is 1.50, it is getting better but potassium 6.1 today which is high.. CellCept and tacrolimus held. He is on IV Decadron. Nephrology on the case, patient may need hemodialysis today, awaiting nephrology recommendations. #5 new onset atrial flutter/fibrillation: Today, he went back into A. fib with RVR, receiving IV amiodarone bolus. Now, he is back in sinus rhythm, blood pressure is borderline. He is also on metoprolol. On IV heparin drip for anticoagulation.. #6 hypertension: Currently, blood pressure borderline. Antihypertensive medications held. #7 hyperlipidemia: Statins held. #8 DVT prophylaxis: Remained on IV heparin drip. This note was generated with [employer] dictation software. It may contain incorrect words, spelling, and punctuation that were not noted in checking the note before signing. Inpatient E&M: 64719 Subs Hosp L3
[2020-01-26] MEDS: Dexmedetomidine 1,000 mcg in 0.9% NS 240 mL 28.8 MCG CONT INF ×2 (11:19→19:40)
--- NOTE | 2020-01-26 11:29 | CASEMGMT ---
SW participated in ICU rounds this morning. SW called pt's parents to check in with them and see how they are managing. Pt's mother states she and pt's father both have COVID. She is managing, pt's father is not feeling well, sleeping present. SW offered support to pt's mother. SW encouraged her to call in to ICU if she has questions about how pt is feeling; she states she has been calling in to check on him. SW let pt's mother know CHRISTIANO/KI here for support and to follow along as pt is here in the hospital. SW will continue to follow. [facility]
--- NOTE | 2020-01-26 12:09 | RAD_ITS ---
FEVER, COVID-19 PNEUMONIA FEVER, COVID-19 PNEUMONIA EXAMINATION/TECHNIQUE: XR Chest 1 View: COMPARISON: January 18, 2020 FINDINGS: This radiograph was obtained for dictation at this time 6 hours after being submitted LINES/DEVICES: ET tube and NG tube are visualized. The ET tube is similar on the NG tube is seen with the tip coiled in the fundus of the stomach. LUNGS: Bilateral diffuse airspace opacities are similar on the left and increased on the right. This No pneumothorax. MEDIASTINUM AND CARDIOVASCULAR STRUCTURES: Cardiac silhouette not enlarged. Central airways and mediastinal contour are unremarkable. BONES AND SOFT TISSUES: Unremarkable. RAD/Chest 1 View (Portable) IMPRESSION: Extensive bilateral airspace opacities increase in the right lung when compared to prior study. at 2329 Reported and signed by: Macrina Herrmann DO Electronically Signed: Macrina Herrmann DO at 23:28 EST Tel , Service support ,
[2020-01-26] MEDS: Tacrolimus 0.5 MG Capsule GT ×2 (12:58→22:39)
[2020-01-26 13:06] LABS: Potassium 4.7 mmol/L (3.5-5.1)
[2020-01-26 13:24] LABS: Pathologist Review Reviewed
[2020-01-26 13:25] LABS: Procalcitonin 0.63 ng/mL (0.00-0.09)
[2020-01-26 13:28] LABS: Pathologist Review Reviewed
[2020-01-26 13:30] LABS: Pathologist Review Reviewed
--- NOTE | 2020-01-26 16:04 | PN.ID_ITS ---
Patient Problems: Active and Suspected Problems (Last Updated 09/02/18 @ 13:55 by Katheryn Mosqueda) TUCKER (acute kidney injury) (Acute) a fib with rvr (Acute) COVID-19 virus infection (Acute) Acute respiratory failure with hypoxia (Acute) Subjective: On vent, awake, denies abd pain, ongoing low grade fever today. Afib with rvr overnight. - Physical Exam Vitals/I&O's: Vital Signs Temp Pulse Resp BP Pulse Ox 100.4 F H 80 19 H 96/59 L 98 01/26/20 14:00 01/26/20 14:00 01/26/20 14:00 01/26/20 14:00 01/26/20 14:00 Oxygen Flow Rate (L/min) 50 Oxygen Delivery Method Mechanical Ventilator Weight: 76.7 kg Body Mass Index (BMI) 26.0 Intake and Output for Last 24 Hours 01/24/20 01/25/20 01/26/20 23:59 23:59 23:59 Intake Total 2631.07 / 2631.07 3736.71 / 3775.01 2946.48 / 2946.48 Output Total 3300 / 3300 4199 / 4199 2850 / 2850 Balance -668.93 / -668.93 -462.29 / -423.99 96.48 / 96.48 General: Alert Lungs: Diminished Cardiovascular: Regular rate, Regular Rhythm Abdomen: Soft, Non Tender, Non-Distended Skin: No rashes Microbiology Past 72 Hours 01/18/20 16:25 Blood Culture (Wb) - Anticubital Left Blood Culture - Final No growth in 5 days. 01/18/20 16:36 Blood Culture (Wb) - Left Forearm Blood Culture - Final No growth in 5 days. Laboratory Results 01/24/20 06:10: Diff Path Review Reviewed 01/25/20 04:20: Diff Path Review Reviewed 01/25/20 16:09: POC Glucose 229 H 01/25/20 18:30: APTT 50.8 H 01/25/20 22:57: POC Glucose 132 H 01/26/20 02:15: APTT 65.7 H 01/26/20 02:15: WBC 22.2 H, RBC 3.56 L, Hgb 10.1 L, Hct 33.2 L, MCV 93.3, MCH 28.4, MCHC 30.4 L, RDW Std Deviation 46.9 H, RDW Coeff of Genaro 13.9, Plt Count 3 09, MPV 10.2, Neut % (Auto) Not Reportable, Absolute Neuts (auto) 21.1 H, Absolute Lymphs (auto) 0.44 L, Total Counted 100, Neutrophils % (Manual) 92 H, Band Neutrophils % 3, Lymphocytes % (Manual) 2 L, Monocytes % (Manual) 1, Metamyelocytes % 2 H, Diff Path Review Reviewed, Platelet Estimate ADEQUATE, RBC Morphology N CYTIC, Hypochromasia 2+ 01/26/20 02:15: Sodium 147 H, Potassium 6.1 H*, Chloride 120 H, Carbon Dioxide 24.0, Anion Gap 3 L, BUN 74 H, Creatinine 1.50 H, Estim Creat Clear Calc 54.47, Est GFR (MDRD) Af Amer 63, Est GFR (MDRD) Non-Af 52 L, BUN/Creatinine Ratio 49.3 H, Glucose 117 H, Calcium 8.7 01/26/20 02:15: Magnesium 2.3 01/26/20 05:36: POC Glucose 194 H 01/26/20 08:15: APTT 198.7 H* 01/26/20 12:30: Potassium 4.7 01/26/20 12:30: Potassium Cancelled 01/26/20 12:30: Troponin I 0.098 H 01/26/20 12:30: Procalcitonin 0.63 H 01/26/20 15:15: APTT Pending Current Medications Acetaminophen (Acetaminophen 650 Mg/20 Ml Udc) 650 mg GT Q6H PRN PRN PRN Reason: Pain Score 1-10/Temp > 100.7 F Last Admin: 01/26/20 08:00 Dose: 650 mg Documented by: Albuterol Sulfate (Albuterol 2.5 Mg/3 Ml Vial.Neb.) 2.5 mg INHALATION Q2H PRN PRN PRN Reason: WHEEZING Aspirin (Aspirin 81 Mg Tab.Chew) 81 mg GT DAILY [facility] Last Admin: 01/26/20 09:50 Dose: 81 mg Documented by: Chlorhexidine Gluconate (Chlorhexidine 15 Ml) 15 ml PO BID [facility] Last Admin: 01/26/20 09:53 Dose: 15 ml Documented by: Dexamethasone Sodium Phosphate (Dexamethasone 10 Mg/Ml Vial) 6 mg IV DAILY [facility] Stop: 01/27/20 10:01 Last Admin: 01/26/20 09:50 Dose: 6 mg Documented by: Heparin Sodium (Porcine) (Heparin Injection (Vial) 5,000 Unit/Ml Vial) 0 unit IV UD PRN; Protocol PRN Reason: dose adjustment Last Admin: 01/25/20 20:08 Dose: 1,000 unit Documented by: Heparin Sodium/Dextrose () 25,000 units in 250 mls @ 11 mls/hr IV .[id number] KEARA; Protocol Last Titration: 01/26/20 14:00 Dose: 400 units/hr, 4 mls/hr Documented by: Fentanyl Citrate 1,000 mcg/ (Sodium Chloride) 100 mls @ 2.5 mls/hr CONT INF .Q40H [facility]; Protocol Last Titration: 01/26/20 14:00 Dose: 30 mcg/hr, 3 mls/hr Documented by: Sodium Chloride () 250 mls @ 15 mls/hr IV .[id number] PRN PRN Reason: Saline Flush Sodium Chloride () 250 mls @ 15 mls/hr IV .[id number] PRN PRN Reason: Additional IVPB Infusion Enteral Nutritional Formula (Vital Af 1.2 José Miguel Liquid) 1,000 mls @ 60 mls/hr GT .[id number] [facility] Last Admin: 01/26/20 09:50 Dose: 60 mls/hr Documented by: Pantoprazole Sodium 40 mg/ (Sodium Chloride) 110 mls @ 330 mls/hr IV Q12 [facility] Last Infusion: 01/26/20 10:08 Dose: Infused Documented by: Dexmedetomidine HCl 1,000 mcg/ (Sodium Chloride) 250 mls @ 9.588 mls/hr CONT INF .[id number] [facility]; Protocol Last Titration: 01/26/20 14:00 Dose: 1.5 mcg/kg/hr, 28.8 mls/hr Documented by: Norepinephrine Bitartrate 8 mg (/ Sodium Chloride) 250 mls @ 9.375 mls/hr CONT INF .[id number] [facility]; Protocol Dextrose () 1,000 mls @ 100 mls/hr IV .Q10H [facility] Stop: 01/27/20 06:19 Last Admin: 01/26/20 10:30 Dose: 100 mls/hr Documented by: Insulin Glargine (Insulin Glargine 100 Units/Ml Pen) 20 units SC BID [facility] Last Admin: 01/26/20 09:53 Dose: 20 u Documented by: Insulin Human Lispro (Insulin Lispro 100 Unit/Ml Insuln.Pen) 0 unit SC Q6 [facility]; Protocol Last Admin: 01/26/20 12:58 Dose: 6 units Documented by: Metoprolol Tartrate (Metoprolol Tartrate 25 Mg Tablet) 25 mg PO BID [facility] Last Admin: 01/26/20 09:54 Dose: Not Given Documented by: Ondansetron HCl (Ondansetron 4 Mg/2 Ml Vial) 4 mg IV Q8H PRN PRN PRN Reason: NAUSEA/VOMITING Polyethylene Glycol (Polyethylene Glycol 3350 17 Gm Packet) 34 gm PO X1 PRN PRN Reason: Bowel Movement Senna/Docusate Sodium (Senna/Docusate Sodium 1 Tablet) 2 tablet PO BID [facility] Last Admin: 01/26/20 09:54 Dose: Not Given Documented by: Sodium Chloride (0.9% Saline Lock 10 Ml Syringe) 10 - 40 ml IV UD PRN PRN Reason: SALINE FLUSH Last Admin: 01/26/20 04:14 Dose: 10 ml Documented by: Tacrolimus (Tacrolimus 0.5 Mg Capsule) 0.5 mg GT BID [facility] Last Admin: 01/26/20 12:58 Dose: 0.5 mg Documented by: Medical Necessity - Tobacco Use Smoking Status: Former smoker Tobacco Use: Non-smoker Route of nutrition/ use of supplements: [] Nutritional Intake: [] IV Site: [] Fernando Catheter: [] - Assessment/Plan Antibiotics: [] Assessment/Plan: [] Active and Suspected Problems (Last Updated 09/02/18 @ 13:55 by Katheryn Mosqueda) COVID-19 virus infection (Acute) Acute respiratory failure with hypoxia (Acute) covid with hypoxia, resp failure, renal transplant - on hep gtt, dex, and completed 5 doses of remdesivir today 01/22. D-dimer was 4.2. O2 stable and TUCKER resolved. Ongoing fever, may be related to precedex. Will check cxr, bcx, sputum cx, PCT. Wbc relatively stable but still elevated. Monitoring off of abx at this point. Will follow
[2020-01-26 16:05] LABS: Partial Thromboplast Time 146.1 Seconds (24.1-36.2)
[2020-01-26 16:41] LABS: Bedside Glucose 236 mg/dL (70-110)
[2020-01-26 18:26] LABS: Bedside Glucose 213 mg/dL (70-110)
[2020-01-26] MEDS: Senna/Docusate Sodium 1 Tablet 2 TABLET PO (22:39)
[2020-01-26] MEDS: Metoprolol Tartrate 25 MG Tablet PO (22:44)
[2020-01-26 23:25] LABS: Partial Thromboplast Time 38.5 Seconds (24.1-36.2)
[2020-01-27] VITALS (46 sets, daily range): BP systolic 100–165; BP diastolic 65–88; PULSE 52–225; RESP 12–90; TEMP 36.6–38.6; O2SAT 88–192
[2020-01-27] MEDS: Heparin Injection (Vial) 5,000 UNIT/ML VIAL IV ×2 (00:51→23:43)
[2020-01-27] MEDS: Insulin Lispro 100 UNIT/ML INSULN.PEN SC ×2 (00:56→07:01)
[2020-01-27 01:16] LABS: Bedside Glucose 170 mg/dL (70-110)
[2020-01-27] MEDS: Vital AF 1.2 Cal Liquid 1,000 ML 60 ML GT (02:57)
[2020-01-27] MEDS: Dexmedetomidine 1,000 mcg in 0.9% NS 240 mL 28.8 MCG CONT INF (04:45)
--- NOTE | 2020-01-27 05:43 | PN_ITS ---
Subjective: The patient was seen and examined at the bedside this morning. Events from the last 24 hours have been reviewed. The patient is currently afebrile, hemodynamically stable and maintaining appropriate oxygen saturations on assist control mode of mechanical ventilation with an FiO2 requirement of 30%. The patient is currently documented to be 1.2L positive for the admission. The patient passed his spontaneous breathing trial this morning. He remains in normal sinus rhythm. Objective: The patient's most recent lab work, culture data and imaging studies have all been personally reviewed. Surface echocardiogram from November 2018 revealed normal LV size with an ejection fraction of 55%. Pulmonary artery systolic pr essure was estimated to be 25 to 30 mmHg. Coronavirus testing was positive on January 01. Sputum and blood cultures have shown no growth to date. General: Alert, Cooperative, - - Remains intubated and mechanically ventilated. Currently tolerating spontaneous mode of mechanical ventilation. HEENT: Atraumatic, Normocephalic Oral: No Gingival or Mucosal Lesions/ Ulcerations, - - Stable endotracheal and OG tubes. Neck: Supple, No Nodes, Trachea Midline Lungs: No rhonchi, No wheeze, No rales, Diminished Cardiovascular: Regular rate, Regular Rhythm Abdomen: Bowel Sounds Present, Soft, Non Tender Extremities: No clubbing, No cyanosis, No edema Skin: - - No significant change from previous. Musculoskeletal: No Tenderness to Palpation of Joints or Extremities Lymphatic: No Cervical, Supraclavicular, or Inguinal Adenopathy Neurological: Neuro grossly intact, - - Alert and able to follow simple commands. Vital Signs Temp Pulse Resp BP Pulse Ox 99.6 F H 102 H 24 H 111/80 89 01/27/20 03:00 01/27/20 05:08 01/27/20 05:08 01/27/20 03:00 01/27/20 05:08 Oxygen Flow Rate (L/min) 50 Oxygen Delivery Method Mechanical Ventilator Weight: 169 lb 1.513 oz Body Mass Index (BMI) 26.0 Intake and Output for Last 24 Hours 01/25/20 01/26/20 01/27/20 23:59 23:59 23:59 Intake Total 3736.71 / 3775.01 5350.88 / 5395.68 778.50 / 778.50 Output Total 4199 / 4199 3750 / 3750 180 / 180 Balance -462.29 / -423.99 1600.88 / 1645.68 598.50 / 598.50 Labs (Last 48 Hours) 01/24/20 01/25/20 01/25/20 06:10 00:18 04:20 WBC RBC Hgb Hct MCV MCH MCHC RDW Std Deviation RDW Coeff of Genaro Plt Count MPV Neut % (Auto) Absolute Neuts (auto) Absolute Lymphs (auto) Total Counted Neutrophils % (Manual) Band Neutrophils % Lymphocytes % (Manual) Monocytes % (Manual) Metamyelocytes % Diff Path Review Reviewed Reviewed Platelet Estimate RBC Morphology Hypochromasia APTT Sodium Potassium Chloride Carbon Dioxide Anion Gap BUN Creatinine Estim Creat Clear Calc Est GFR (MDRD) Af Amer Est GFR (MDRD) Non-Af BUN/Creatinine Ratio Glucose Calcium Magnesium Troponin I Procalcitonin POC Glucose 164 H 01/25/20 01/25/20 01/25/20 10:15 11:20 12:27 WBC RBC Hgb Hct MCV MCH MCHC RDW Std Deviation RDW Coeff of Genaro Plt Count MPV Neut % (Auto) Absolute Neuts (auto) Absolute Lymphs (auto) Total Counted Neutrophils % (Manual) Band Neutrophils % Lymphocytes % (Manual) Monocytes % (Manual) Metamyelocytes % Diff Path Review Platelet Estimate RBC Morphology Hypochromasia APTT Cancelled 101.5 H* Sodium Potassium Chloride Carbon Dioxide Anion Gap BUN Creatinine Estim Creat Clear Calc Est GFR (MDRD) Af Amer Est GFR (MDRD) Non-Af BUN/Creatinine Ratio Glucose Calcium Magnesium Troponin I Procalcitonin POC Glucose 163 H 01/25/20 01/25/20 01/25/20 16:09 18:30 22:57 WBC RBC Hgb Hct MCV MCH MCHC RDW Std Deviation RDW Coeff of Genaro Plt Count MPV Neut % (Auto) Absolute Neuts (auto) Absolute Lymphs (auto) Total Counted Neutrophils % (Manual) Band Neutrophils % Lymphocytes % (Manual) Monocytes % (Manual) Metamyelocytes % Diff Path Review Platelet Estimate RBC Morphology Hypochromasia APTT 50.8 H Sodium Potassium Chloride Carbon Dioxide Anion Gap BUN Creatinine Estim Creat Clear Calc Est GFR (MDRD) Af Amer Est GFR (MDRD) Non-Af BUN/Creatinine Ratio Glucose Calcium Magnesium Troponin I Procalcitonin POC Glucose 229 H 132 H 01/26/20 01/26/20 01/26/20 02:15 02:15 02:15 WBC 22.2 H RBC 3.56 L Hgb 10.1 L Hct 33.2 L MCV 93.3 MCH 28.4 MCHC 30.4 L RDW Std Deviation 46.9 H RDW Coeff of Genaro 13.9 Plt Count 309 MPV 10.2 Neut % (Auto) Not Reportable Absolute Neuts (auto) 21.1 H Absolute Lymphs (auto) 0.44 L Total Counted 100 Neutrophils % (Manual) 92 H Band Neutrophils % 3 Lymphocytes % (Manual) 2 L Monocytes % (Manual) 1 Metamyelocytes % 2 H Diff Path Review Reviewed Platelet Estimate ADEQUATE RBC Morphology N CYTIC Hypochromasia 2+ APTT 65.7 H Sodium 147 H Potassium 6.1 H* Chloride 120 H Carbon Dioxide 24.0 Anion Gap 3 L BUN 74 H Creatinine 1.50 H Estim Creat Clear Calc 54.47 Est GFR (MDRD) Af Amer 63 Est GFR (MDRD) Non-Af 52 L BUN/Creatinine Ratio 49.3 H Glucose 117 H Calcium 8.7 Magnesium Troponin I Procalcitonin POC Glucose 01/26/20 01/26/20 01/26/20 02:15 05:36 08:15 WBC RBC Hgb Hct MCV MCH MCHC RDW Std Deviation RDW Coeff of Genaro Plt Count MPV Neut % (Auto) Absolute Neuts (auto) Absolute Lymphs (auto) Total Counted Neutrophils % (Manual) Band Neutrophils % Lymphocytes % (Manual) Monocytes % (Manual) Metamyelocytes % Diff Path Review Platelet Estimate RBC Morphology Hypochromasia APTT 198.7 H* Sodium Potassium Chloride Carbon Dioxide Anion Gap BUN Creatinine Estim Creat Clear Calc Est GFR (MDRD) Af Amer Est GFR (MDRD) Non-Af BUN/Creatinine Ratio Glucose Calcium Magnesium 2.3 Troponin I Procalcitonin POC Glucose 194 H 01/26/20 01/26/20 01/26/20 12:30 12:30 12:30 WBC RBC Hgb Hct MCV MCH MCHC RDW Std Deviation RDW Coeff of Genaro Plt Count MPV Neut % (Auto) Absolute Neuts (auto) Absolute Lymphs (auto) Total Counted Neutrophils % (Manual) Band Neutrophils % Lymphocytes % (Manual) Monocytes % (Manual) Metamyelocytes % Diff Path Review Platelet Estimate RBC Morphology Hypochromasia APTT Sodium Potassium 4.7 Cancelled Chloride Carbon Dioxide Anion Gap BUN Creatinine Estim Creat Clear Calc Est GFR (MDRD) Af Amer Est GFR (MDRD) Non-Af BUN/Creatinine Ratio Glucose Calcium Magnesium Troponin I 0.098 H Procalcitonin POC Glucose 01/26/20 01/26/20 01/26/20 12:30 12:56 15:15 WBC RBC Hgb Hct MCV MCH MCHC RDW Std Deviation RDW Coeff of Genaro Plt Count MPV Neut % (Auto) Absolute Neuts (auto) Absolute Lymphs (auto) Total Counted Neutrophils % (Manual) Band Neutrophils % Lymphocytes % (Manual) Monocytes % (Manual) Metamyelocytes % Diff Path Review Platelet Estimate RBC Morphology Hypochromasia APTT 146.1 H* Sodium Potassium Chloride Carbon Dioxide Anion Gap BUN Creatinine Estim Creat Clear Calc Est GFR (MDRD) Af Amer Est GFR (MDRD) Non-Af BUN/Creatinine Ratio Glucose Calcium Magnesium Troponin I Procalcitonin 0.63 H POC Glucose 236 H 01/26/20 01/26/20 01/27/20 17:42 22:30 00:55 WBC RBC Hgb Hct MCV MCH MCHC RDW Std Deviation RDW Coeff of Genaro Plt Count MPV Neut % (Auto) Absolute Neuts (auto) Absolute Lymphs (auto) Total Counted Neutrophils % (Manual) Band Neutrophils % Lymphocytes % (Manual) Monocytes % (Manual) Metamyelocytes % Diff Path Review Platelet Estimate RBC Morphology Hypochromasia APTT 38.5 H Sodium Potassium Chloride Carbon Dioxide Anion Gap BUN Creatinine Estim Creat Clear Calc Est GFR (MDRD) Af Amer Est GFR (MDRD) Non-Af BUN/Creatinine Ratio Glucose Calcium Magnesium Troponin I Procalcitonin POC Glucose 213 H 170 H Clinical Impression(s) from Imaging Studies Chest X-Ray 01/18/20 17:00 IMPRESSION: 1. Extensive multilobar airspace disease suggesting pneumonia, including viral causes. Electronically Signed: Tyrone Borrero MD ([place]) at 17:22 EST , Service support , Chest X-Ray 01/18/20 20:40 KUB X-Ray 01/23/20 00:01 IMPRESSION: 1. Appropriate positioning of supportive devices 2. Normal bowel gas pattern Electronically Signed: Jonathan Aguilar MD at 1:57 EST Tel , Service support , Chest X-Ray 01/26/20 12:09 IMPRESSION: Extensive bilateral airspace opacities increase in the right lung when compared to prior study. at 2329 Reported and signed by: Macrina Herrmann DO Electronically Signed: Macrina Herrmann DO at 23:28 EST Tel , Service support , Medical Necessity - Tobacco Use Smoking Status: Former smoker Tobacco Use: Non-smoker Assessment/Plan All Active Problems (Last Updated 09/02/18 @ 13:55 by Katheryn Mosqueda) TUCKER (acute kidney injury) (Acute) a fib with rvr (Acute) COVID-19 virus infection (Acute) Acute respiratory failure with hypoxia (Acute) RECOMMENDATIONS: 1. Proceed with a trial of extubation. 2. Once extubated, wean supplemental oxygen to maintain saturations at or above 90%. 3. Tacrolimus management per nephrology recommendations. 4. Continue heparin drip. 5. Administer IV Lasix today. 6. Continue beta-aretha. 7. Bedside swallow evaluation and advance diet accordingly. IMPRESSIONS: 1. Acute hypoxemic respiratory failure secondary to COVID-19 pneumonia Continue current supportive measures. The patient passed his spontaneous breathing trial this morning and is currently a candidate for a trial of extubation. Once extubated, supplemental oxygen will be weaned to maintain saturations at or above 90%. The patient has completed his treatment course of remdesivir and Decadron. Diuresis will be undertaken today as tolerated by hemodynamics and renal function. Bedside swallow evaluation can be completed and diet advanced accordingly. Encourage incentive spirometer use and mobilize patient as tolerated. 2. Acute on chronic kidney disease status post renal transplantation Improving. Defer ongoing hemodialysis need to nephrology. Defer tacrolimus management per nephrology recommendations. 3. Paroxysmal atrial fibrillation with RVR Continue heparin infusion as tolerated. Continue beta-blockade. 4. Hypertension/hyperlipidemia/elevated troponin Complicates care, management, recovery and prognosis. Continue to hold antihypertensives for now. UPDATE: I was notified by nursing staff this morning that the patient developed a tachyarrhythmia sometime following extubation. Adenosine administration did slow the patient's rate but it was unclear whether this was an SVT or rapid atrial fibrillation. Cardiology was subsequently consulted. TIME: 40 minutes of critical care time, independent of procedures, was spent addressing the patient's acute hypoxemic respiratory failure secondary to COVID- 19 pneumonia, acute on chronic kidney disease, paroxysmal atrial fibrillation, review of all data and collaboration with the care team. [id number]) [id number] Critical care first hour
[2020-01-27 05:56] LABS: Absolute Lymphocyte Count 0.75 X10^3/uL (0.83-4.51); Absolute Neutrophil Count 16.3 X10^3/uL (2.0-7.7); Basophil# 0.02 X10^3/uL; Basophil% 0.1 % (0-1); Eosinophil# 0.32 X10^3/uL; Eosinophils% 1.8 % (0-5); Hematocrit 29.6 % (40-54); Hemoglobin 9.2 g/dL (13.0-16.5); Lymphocyte # 0.75 X10^3/ul (4.0); Lymphocyte % 4.1 % (19-41); Mean Corp Hgb Conc 31.1 g/dL (32-36); Mean Corpuscular Hgb 28.8 pg (27.0-32.0); Mean Corpuscular Volume 92.5 fL (80-94); Monocyte# 0.32 X10^3/uL; Monocyte% 1.8 % (0-10); NRBC Flagged by Analyzer 0.2 % (0-5); Neutrophil # 16.28 X10^3/uL (2.7-7.7); Neutrophil % 89.9 % (47-70); Platelet Count 256 K/mm3 (150-450); RBC Distribution Width CV 13.9 % (11.6-14.6); RBC Distribution Width SD 46.6 fl (35.1-43.9); White Blood Count 18.1 K/mm3 (4.4-11.0)
[2020-01-27 06:10] LABS: Anion Gap 6 (5-15); BUN 65 mg/dL (7-18); BUN/Creat Ratio 47.8 RATIO (10-20); Calcium,Total 8.4 mg/dL (8.5-10.1); Chloride 107 mmol/L (98-107); Creatinine, Serum 1.36 mg/dL (0.70-1.30); EST Glomerular Filtration Rate 58 mL/min (>60); Est Glom Filt Rate - Afr Amer 70 mL/min (>60); Estimated Creatinine Clearance 60.07 ml/min; Glucose 160 mg/dL (74-106); Potassium 4.6 mmol/L (3.5-5.1); Sodium Level 140 mmol/L (136-145)
--- NOTE | 2020-01-27 07:22 | PCM.PN.HOSP ---
Patient Problems: Active and Suspected Problems (Last Updated 09/02/18 @ 13:55 by Katheryn Mosqueda) TUCKER (acute kidney injury) (Acute) a fib with rvr (Acute) COVID-19 virus infection (Acute) Acute respiratory failure with hypoxia (Acute) Reason for Visit: Follow-up for acute hypoxic respiratory failure. Currently intubated on 40% FiO2 AC mode on ventilator Objective: Low-grade fever, temperature T-max 99.9 Fahrenheit. On mechanical ventilatory support, 40% FiO2 Plan for extubation today Vitals/I&O's: Vital Signs Temp Pulse Resp BP Pulse Ox 99.9 F H 102 H 24 H 122/76 H 89 01/27/20 05:00 01/27/20 05:08 01/27/20 05:08 01/27/20 05:00 01/27/20 05:08 Oxygen Flow Rate (L/min) 50 Oxygen Delivery Method Mechanical Ventilator Weight: 169 lb 1.513 oz Body Mass Index (BMI) 26.0 Intake and Output for Last 24 Hours 01/25/20 01/26/20 01/27/20 23:59 23:59 23:59 Intake Total 3736.71 / 3775.01 5350.88 / 5395.68 1076.50 / 1076.50 Output Total 4199 / 4199 3750 / 3750 530 / 530 Balance -462.29 / -423.99 1600.88 / 1645.68 546.50 / 546.50 Microbiology Past 72 Hours 01/18/20 16:25 Blood Culture (Wb) - Anticubital Left Blood Culture - Final No growth in 5 days. 01/18/20 16:36 Blood Culture (Wb) - Left Forearm Blood Culture - Final No growth in 5 days. Laboratory Results 01/24/20 06:10: Diff Path Review Reviewed 01/25/20 04:20: Diff Path Review Reviewed 01/26/20 02:15: Diff Path Review Reviewed 01/26/20 08:15: APTT 198.7 H* 01/26/20 12:30: Potassium 4.7 01/26/20 12:30: Potassium Cancelled 01/26/20 12:30: Troponin I 0.098 H 01/26/20 12:30: Procalcitonin 0.63 H 01/26/20 12:56: POC Glucose 236 H 01/26/20 15:15: APTT 146.1 H* 01/26/20 17:42: POC Glucose 213 H 01/26/20 22:30: APTT 38.5 H 01/27/20 00:55: POC Glucose 170 H 01/27/20 05:15: WBC 18.1 H, RBC 3.20 L, Hgb 9.2 L, Hct 29.6 L, MCV 92.5, MCH 28.8, MCHC 31.1 L, RDW Std Deviation 46.6 H, RDW Coeff of Genaro 13.9, Plt Count 256, MPV 11.0, Immature Gran % (Auto) 2.300 H, Neut % (Auto) 89.9 H, Lymph % (Auto) 4.1 L, [place] % (Auto) 1.8, Eos % (Auto) 1.8, Baso % (Auto) 0.1, Absolute Neuts (auto) 16.3 H, Absolute Lymphs (auto) 0.75 L, Nucleated RBC % 0.2 01/27/20 05:15: Sodium 140, Potassium 4.6, Chloride 107, Carbon Dioxide 27.0, Anion Gap 6, BUN 65 H, Creatinine 1.36 H, Estim Creat Clear Calc 60.07, Est GFR (MDRD) Af Amer 70, Est GFR (MDRD) Non-Af 58 L, BUN/Creatinine Ratio 47.8 H, Glucose 160 H, Calcium 8.4 L Current Medications Acetaminophen (Acetaminophen 650 Mg/20 Ml Udc) 650 mg GT Q6H PRN PRN PRN Reason: Pain Score 1-10/Temp > 100.7 F Last Admin: 01/26/20 08:00 Dose: 650 mg Documented by: Albuterol Sulfate (Albuterol 2.5 Mg/3 Ml Vial.Neb.) 2.5 mg INHALATION Q2H PRN PRN PRN Reason: WHEEZING Aspirin (Aspirin 81 Mg Tab.Chew) 81 mg GT DAILY [facility] Last Admin: 01/26/20 09:50 Dose: 81 mg Documented by: Chlorhexidine Gluconate (Chlorhexidine 15 Ml) 15 ml PO BID [facility] Last Admin: 01/26/20 20:15 Dose: 15 ml Documented by: Dexamethasone Sodium Phosphate (Dexamethasone 10 Mg/Ml Vial) 6 mg IV DAILY [facility] Stop: 01/27/20 10:01 Last Admin: 01/26/20 09:50 Dose: 6 mg Documented by: Furosemide (Furosemide 40 Mg/4 Ml Vial) 40 mg IV X1 ONE Stop: 01/27/20 07:20 Heparin Sodium (Porcine) (Heparin Injection (Vial) 5,000 Unit/Ml Vial) 0 unit IV UD PRN; Protocol PRN Reason: dose adjustment Last Admin: 01/27/20 00:51 Dose: 3,000 unit Documented by: Heparin Sodium/Dextrose () 25,000 units in 250 mls @ 11 mls/hr IV .[id number] [facility]; Protocol Last Titration: 01/27/20 06:00 Dose: 300 units/hr, 3 mls/hr Documented by: Fentanyl Citrate 1,000 mcg/ (Sodium Chloride) 100 mls @ 2.5 mls/hr CONT INF .Q40H [facility]; Protocol Last Titration: 01/27/20 06:00 Dose: 0 mcg/hr, 0 mls/hr Documented by: Sodium Chloride () 250 mls @ 15 mls/hr IV .[id number] PRN PRN Reason: Saline Flush Sodium Chloride () 250 mls @ 15 mls/hr IV .[id number] PRN PRN Reason: Additional IVPB Infusion Enteral Nutritional Formula (Vital Af 1.2 José Miguel Liquid) 1,000 mls @ 60 mls/hr GT .[id number] [facility] Last Admin: 01/27/20 02:57 Dose: 60 mls/hr Documented by: Pantoprazole Sodium 40 mg/ (Sodium Chloride) 110 mls @ 330 mls/hr IV Q12 [facility] Last Infusion: 01/26/20 23:00 Dose: Infused Documented by: Dexmedetomidine HCl 1,000 mcg/ (Sodium Chloride) 250 mls @ 9.588 mls/hr CONT INF .[id number] [facility]; Protocol Last Titration: 01/27/20 06:00 Dose: 1.5 mcg/kg/hr, 28.8 mls/hr Documented by: Insulin Glargine (Insulin Glargine 100 Units/Ml Pen) 20 units SC BID [facility] Last Admin: 01/26/20 22:40 Dose: 20 u Documented by: Insulin Human Lispro (Insulin Lispro 100 Unit/Ml Insuln.Pen) 0 unit SC Q6 [facility]; Protocol Last Admin: 01/27/20 07:01 Dose: 3 units Documented by: Metoprolol Tartrate (Metoprolol Tartrate 25 Mg Tablet) 25 mg PO BID [facility] Last Admin: 01/26/20 22:44 Dose: 25 mg Documented by: Ondansetron HCl (Ondansetron 4 Mg/2 Ml Vial) 4 mg IV Q8H PRN PRN PRN Reason: NAUSEA/VOMITING Polyethylene Glycol (Polyethylene Glycol 3350 17 Gm Packet) 34 gm PO X1 PRN PRN Reason: Bowel Movement Senna/Docusate Sodium (Senna/Docusate Sodium 1 Tablet) 2 tablet PO BID [facility] Last Admin: 01/26/20 22:39 Dose: 2 tablet Documented by: Sodium Chloride (0.9% Saline Lock 10 Ml Syringe) 10 - 40 ml IV UD PRN PRN Reason: SALINE FLUSH Last Admin: 01/26/20 04:14 Dose: 10 ml Documented by: Tacrolimus (Tacrolimus 0.5 Mg Capsule) 0.5 mg GT BID [facility] Last Admin: 01/26/20 22:39 Dose: 0.5 mg Documented by: STROKE Vital Signs/Narrative: Vital Signs Temp Pulse Resp BP Pulse Ox 01/27/20 05:08 102 H 24 H 89 01/27/20 05:00 99.9 F H 93 26 H 122/76 H 96 01/27/20 04:00 99.7 F H 80 18 101/71 90 Medical Necessity - Tobacco Use Smoking Status: Former smoker Tobacco Use: Non-smoker Assessment/Plan All Active Problems (Last Updated 09/02/18 @ 13:55 by Katheryn Mosqueda) TUCKER (acute kidney injury) (Acute) a fib with rvr (Acute) COVID-19 virus infection (Acute) Acute respiratory failure with hypoxia (Acute) This is a 54 years old male patient presented to the emergency room because of shortness of breath, found to have COVID-19 pneumonia and his pulse ox dropped while patient was in the ED, needed to be intubated and started on mechanical ventilation. After admission, he developed TUCKER on CKD stage III requiring hemodialysis as well as new onset A. fib/flutter with RVR. #1 Acute hypoxic respiratory failure secondary to acute bilateral COVID-19 pneumonia: Patient has high D-dimer 4.26 and is on IV heparin drip. Patient completed 5 days of remdesivir. On IV Decadron. Chest x-ray showed extensive multilobar consolidation suggesting pneumonia. Patient was on mechanical ventilator which was extubated on 01/26 and currently on 40% FiO2 AIR VO. Gram stain of tracheal aspirate shows rare gram-positive cocci in clusters. Previous respiratory culture reported very rare mixed normal respiratory chevy. Comanagement by sales exhibitor and ID. 2. Abnormal cardiac enzymes: Likely due to demand ischemia. EKG without acute segment changes. 3. Acute kidney injury on top of stage III chronic kidney disease: In the setting of history of renal transplant. Status post hemodialysis x2. Seen by repair clerk. No need for dialysis today. As per transplant repair clerk, tacrolimus resumed at lower dose 0.5 mg twice daily. Diuretic as needed. K4.6. BUN/creatinine 65/1.36, improving trend. #5 new onset atrial flutter/fibrillation: Currently sinus rhythm. Heart rate in 90s with intermittent 117/min today, he went back into A. fib with RVR, receiving IV amiodarone bolus. Now, he is back in sinus rhythm, blood pressure is borderline. He is also on metoprolol. On IV heparin drip for anticoagulation. #6 hypertension: Currently blood pressure borderline but stable.. Antihypertensive medications held. #7 hyperlipidemia: Statins held. #8 DVT prophylaxis: Remained on IV heparin drip. Clinical Impression(s) from Imaging Studies Chest X-Ray 01/18/20 17:00 IMPRESSION: 1. Extensive multilobar airspace disease suggesting pneumonia, including viral causes. Chest X-Ray 01/26/20 12:09 IMPRESSION: Extensive bilateral airspace opacities increase in the right lung when compared to prior study. Microbiology Past 72 Hours 01/26/20 13:12 Sputum, Tracheal Aspirate Gram Stain - Final Laboratory Results 01/24/20 06:10: Diff Path Review Reviewed 01/25/20 04:20: Diff Path Review Reviewed 01/26/20 02:15: Diff Path Review Reviewed 01/26/20 12:30: Troponin I 0.098 H 01/26/20 12:30: Procalcitonin 0.63 H 01/26/20 12:56: POC Glucose 236 H 01/26/20 15:15: APTT 146.1 H* 01/26/20 17:42: POC Glucose 213 H 01/26/20 22:30: APTT 38.5 H 01/27/20 00:55: POC Glucose 170 H 01/27/20 05:15: WBC 18.1 H, RBC 3.20 L, Hgb 9.2 L, Hct 29.6 L, MCV 92.5, MCH 28.8, MCHC 31.1 L, RDW Std Deviation 46.6 H, RDW Coeff of Genaro 13.9, Plt Count 256, MPV 11.0, Immature Gran % (Auto) 2.300 H, Neut % (Auto) 89.9 H, Lymph % (Auto) 4.1 L, [place] % (Auto) 1.8, Eos % (Auto) 1.8, Baso % (Auto) 0.1, Absolute Neuts (auto) 16.3 H, Absolute Lymphs (auto) 0.75 L, Nucleated RBC % 0.2 01/27/20 05:15: Sodium 140, Potassium 4.6, Chloride 107, Carbon Dioxide 27.0, Anion Gap 6, BUN 65 H, Creatinine 1.36 H, Estim Creat Clear Calc 60.07, Est GFR (MDRD) Af Amer 70, Est GFR (MDRD) Non-Af 58 L, BUN/Creatinine Ratio 47.8 H, Glucose 160 H, Calcium 8.4 L 01/27/20 06:59: POC Glucose 156 H 01/27/20 07:30: APTT 44.7 H Inpatient E&M: [id number] Subs Hosp L3
--- NOTE | 2020-01-27 07:46 | NURSING ---
Heparin titration charting was charted as starting at 1900 on 01/26/20 running at 100 units/hr. The titration actually started sooner but was not charted.
[2020-01-27 07:59] LABS: Partial Thromboplast Time 44.7 Seconds (24.1-36.2)
[2020-01-27] MEDS: Acetaminophen 650 MG/20 ML UDC GT (08:05)
[2020-01-27] MEDS: Furosemide 40 MG/4 ML Vial IV (08:05)
[2020-01-27] MEDS: Senna/Docusate Sodium 1 Tablet 2 TABLET PO (08:05)
[2020-01-27] MEDS: Metoprolol Tartrate 25 MG Tablet PO (08:06)
[2020-01-27] MEDS: Aspirin 81 MG TAB.CHEW GT (08:06)
[2020-01-27] MEDS: dexAMETHasone 10 MG/ML Vial 6 MG IV (08:07)
[2020-01-27] MEDS: Chlorhexidine 15 ML PO (08:07)
[2020-01-27] MEDS: Tacrolimus 0.5 MG Capsule GT (08:17)
[2020-01-27 09:21] LABS: Bedside Glucose 156 mg/dL (70-110)
--- NOTE | 2020-01-27 09:34 | PN.RENAL_ITS ---
Patient Problems: Active and Suspected Problems (Last Updated 09/02/18 @ 13:55 by Katheryn Mosqueda) TUCKER (acute kidney injury) (Acute) a fib with rvr (Acute) COVID-19 virus infection (Acute) Acute respiratory failure with hypoxia (Acute) Subjective: intubated cannot do ROS Objective: PE deferred to preserve PPE and prevent further transmission of covid-19 - Physical Exam Vitals/I&O's: Vital Signs Temp Pulse Resp BP Pulse Ox 101.1 F H 93 21 H 109/76 101 01/27/20 09:00 01/27/20 09:00 01/27/20 09:00 01/27/20 09:00 01/27/20 09:00 Oxygen Flow Rate (L/min) 50 Oxygen Delivery Method Mechanical Ventilator Weight: 78.9 kg Body Mass Index (BMI) 26.0 Intake and Output for Last 24 Hours 01/25/20 01/26/20 01/27/20 23:59 23:59 23:59 Intake Total 3736.71 / 3775.01 5350.88 / 5395.68 2105.55 / 2105.55 Output Total 4199 / 4199 3750 / 3750 530 / 530 Balance -462.29 / -423.99 1600.88 / 1645.68 1575.55 / 1575.55 Microbiology Past 72 Hours 01/18/20 16:25 Blood Culture (Wb) - Anticubital Left Blood Culture - Final No growth in 5 days. 01/18/20 16:36 Blood Culture (Wb) - Left Forearm Blood Culture - Final No growth in 5 days. Laboratory Results 01/24/20 06:10: Diff Path Review Reviewed 01/25/20 04:20: Diff Path Review Reviewed 01/26/20 02:15: Diff Path Review Reviewed 01/26/20 12:30: Potassium 4.7 01/26/20 12:30: Potassium Cancelled 01/26/20 12:30: Troponin I 0.098 H 01/26/20 12:30: Procalcitonin 0.63 H 01/26/20 12:56: POC Glucose 236 H 01/26/20 15:15: APTT 146.1 H* 01/26/20 17:42: POC Glucose 213 H 01/26/20 22:30: APTT 38.5 H 01/27/20 00:55: POC Glucose 170 H 01/27/20 05:15: WBC 18.1 H, RBC 3.20 L, Hgb 9.2 L, Hct 29.6 L, MCV 92.5, MCH 28.8, MCHC 31.1 L, RDW Std Deviation 46.6 H, RDW Coeff of Genaro 13.9, Plt Count 256, MPV 11.0, Immature Gran % (Auto) 2.300 H, Neut % (Auto) 89.9 H, Lymph % (Auto) 4.1 L, [place] % (Auto) 1.8, Eos % (Auto) 1.8, Baso % (Auto) 0.1, Absolute Neuts (auto) 16.3 H, Absolute Lymphs (auto) 0.75 L, Nucleated RBC % 0.2 01/27/20 05:15: Sodium 140, Potassium 4.6, Chloride 107, Carbon Dioxide 27.0, Anion Gap 6, BUN 65 H, Creatinine 1.36 H, Estim Creat Clear Calc 60.07, Est GFR (MDRD) Af Amer 70, Est GFR (MDRD) Non-Af 58 L, BUN/Creatinine Ratio 47.8 H, Glucose 160 H, Calcium 8.4 L 01/27/20 06:59: POC Glucose 156 H 01/27/20 07:30: APTT 44.7 H Current Medications Acetaminophen (Acetaminophen 650 Mg/20 Ml Udc) 650 mg GT Q6H PRN PRN PRN Reason: Pain Score 1-10/Temp > 100.7 F Last Admin: 01/27/20 08:05 Dose: 650 mg Documented by: Albuterol Sulfate (Albuterol 2.5 Mg/3 Ml Vial.Neb.) 2.5 mg INHALATION Q2H PRN PRN PRN Reason: WHEEZING Aspirin (Aspirin 81 Mg Tab.Chew) 81 mg GT DAILY [facility] Last Admin: 01/27/20 08:06 Dose: 81 mg Documented by: Chlorhexidine Gluconate (Chlorhexidine 15 Ml) 15 ml PO BID [facility] Last Admin: 01/27/20 08:07 Dose: 15 ml Documented by: Dexamethasone Sodium Phosphate (Dexamethasone 10 Mg/Ml Vial) 6 mg IV DAILY [facility] Stop: 01/27/20 10:01 Last Admin: 01/27/20 08:07 Dose: 6 mg Documented by: Heparin Sodium (Porcine) (Heparin Injection (Vial) 5,000 Unit/Ml Vial) 0 unit IV UD PRN; Protocol PRN Reason: dose adjustment Last Admin: 01/27/20 00:51 Dose: 3,000 unit Documented by: Heparin Sodium/Dextrose () 25,000 units in 250 mls @ 11 mls/hr IV .[id number] [facility]; Protocol Last Titration: 01/27/20 07:00 Dose: Infused Documented by: Fentanyl Citrate 1,000 mcg/ (Sodium Chloride) 100 mls @ 2.5 mls/hr CONT INF .Q40H [facility]; Protocol Last Titration: 01/27/20 07:00 Dose: 0 mcg/hr, 0 mls/hr Documented by: Sodium Chloride () 250 mls @ 15 mls/hr IV .[id number] PRN PRN Reason: Saline Flush Sodium Chloride () 250 mls @ 15 mls/hr IV .[id number] PRN PRN Reason: Additional IVPB Infusion Enteral Nutritional Formula (Vital Af 1.2 José Miguel Liquid) 1,000 mls @ 60 mls/hr GT .[id number] [facility] Last Admin: 01/27/20 02:57 Dose: 60 mls/hr Documented by: Pantoprazole Sodium 40 mg/ (Sodium Chloride) 110 mls @ 330 mls/hr IV Q12 [facility] Last Admin: 01/27/20 09:19 Dose: 330 mls/hr Documented by: Dexmedetomidine HCl 1,000 mcg/ (Sodium Chloride) 250 mls @ 9.863 mls/hr CONT INF .[id number] [facility]; Protocol Last Titration: 01/27/20 07:00 Dose: 1.5 mcg/kg/hr, 28.8 mls/hr Documented by: Insulin Glargine (Insulin Glargine 100 Units/Ml Pen) 20 units SC BID [facility] Last Admin: 01/27/20 08:09 Dose: 20 u Documented by: Insulin Human Lispro (Insulin Lispro 100 Unit/Ml Insuln.Pen) 0 unit SC Q6 [facility]; Protocol Last Admin: 01/27/20 07:01 Dose: 3 units Documented by: Metoprolol Tartrate (Metoprolol Tartrate 25 Mg Tablet) 25 mg PO BID [facility] Last Admin: 01/27/20 08:06 Dose: 25 mg Documented by: Ondansetron HCl (Ondansetron 4 Mg/2 Ml Vial) 4 mg IV Q8H PRN PRN PRN Reason: NAUSEA/VOMITING Polyethylene Glycol (Polyethylene Glycol 3350 17 Gm Packet) 34 gm PO X1 PRN PRN Reason: Bowel Movement Senna/Docusate Sodium (Senna/Docusate Sodium 1 Tablet) 2 tablet PO BID [facility] Last Admin: 01/27/20 08:05 Dose: 2 tablet Documented by: Sodium Chloride (0.9% Saline Lock 10 Ml Syringe) 10 - 40 ml IV UD PRN PRN Reason: SALINE FLUSH Last Admin: 01/26/20 04:14 Dose: 10 ml Documented by: Tacrolimus (Tacrolimus 0.5 Mg Capsule) 0.5 mg GT BID [facility] Last Admin: 01/27/20 08:17 Dose: 0.5 mg Documented by: Medical Necessity - Tobacco Use Smoking Status: Former smoker Tobacco Use: Non-smoker Assessment/Plan All Active Problems (Last Updated 09/02/18 @ 13:55 by Katheryn Mosqueda) TUCKER (acute kidney injury) (Acute) a fib with rvr (Acute) COVID-19 virus infection (Acute) Acute respiratory failure with hypoxia (Acute)
--- NOTE | 2020-01-27 09:38 | PN.RENAL_ITS ---
Patient Problems: Active and Suspected Problems (Last Updated 09/02/18 @ 13:55 by Katheryn Mosqueda) TUCKER (acute kidney injury) (Acute) a fib with rvr (Acute) COVID-19 virus infection (Acute) Acute respiratory failure with hypoxia (Acute) Subjective: ROS cannot be done the patient is intubated - Physical Exam Vitals/I&O's: Vital Signs Temp Pulse Resp BP Pulse Ox 101.1 F H 93 21 H 109/76 101 01/27/20 09:00 01/27/20 09:00 01/27/20 09:00 01/27/20 09:00 01/27/20 09:00 Oxygen Flow Rate (L/min) 50 Oxygen Delivery Method Mechanical Ventilator Weight: 78.9 kg Body Mass Index (BMI) 26.0 Intake and Output for Last 24 Hours 01/25/20 01/26/20 01/27/20 23:59 23:59 23:59 Intake Total 3736.71 / 3775.01 5350.88 / 5395.68 2105.55 / 2105.55 Output Total 4199 / 4199 3750 / 3750 530 / 530 Balance -462.29 / -423.99 1600.88 / 1645.68 1575.55 / 1575.55 Microbiology Past 72 Hours 01/18/20 16:25 Blood Culture (Wb) - Anticubital Left Blood Culture - Final No growth in 5 days. 01/18/20 16:36 Blood Culture (Wb) - Left Forearm Blood Culture - Final No growth in 5 days. Laboratory Results 01/24/20 06:10: Diff Path Review Reviewed 01/25/20 04:20: Diff Path Review Reviewed 01/26/20 02:15: Diff Path Review Reviewed 01/26/20 12:30: Potassium 4.7 01/26/20 12:30: Potassium Cancelled 01/26/20 12:30: Troponin I 0.098 H 01/26/20 12:30: Procalcitonin 0.63 H 01/26/20 12:56: POC Glucose 236 H 01/26/20 15:15: APTT 146.1 H* 01/26/20 17:42: POC Glucose 213 H 01/26/20 22:30: APTT 38.5 H 01/27/20 00:55: POC Glucose 170 H 01/27/20 05:15: WBC 18.1 H, RBC 3.20 L, Hgb 9.2 L, Hct 29.6 L, MCV 92.5, MCH 28.8, MCHC 31.1 L, RDW Std Deviation 46.6 H, RDW Coeff of Genaro 13.9, Plt Count 256, MPV 11.0, Immature Gran % (Auto) 2.300 H, Neut % (Auto) 89.9 H, Lymph % (Auto) 4.1 L, [place] % (Auto) 1.8, Eos % (Auto) 1.8, Baso % (Auto) 0.1, Absolute Neuts (auto) 16.3 H, Absolute Lymphs (auto) 0.75 L, Nucleated RBC % 0.2 01/27/20 05:15: Sodium 140, Potassium 4.6, Chloride 107, Carbon Dioxide 27.0, Anion Gap 6, BUN 65 H, Creatinine 1.36 H, Estim Creat Clear Calc 60.07, Est GFR (MDRD) Af Amer 70, Est GFR (MDRD) Non-Af 58 L, BUN/Creatinine Ratio 47.8 H, Glucose 160 H, Calcium 8.4 L 01/27/20 06:59: POC Glucose 156 H 01/27/20 07:30: APTT 44.7 H Current Medications Acetaminophen (Acetaminophen 650 Mg/20 Ml Udc) 650 mg GT Q6H PRN PRN PRN Reason: Pain Score 1-10/Temp > 100.7 F Last Admin: 01/27/20 08:05 Dose: 650 mg Documented by: Albuterol Sulfate (Albuterol 2.5 Mg/3 Ml Vial.Neb.) 2.5 mg INHALATION Q2H PRN PRN PRN Reason: WHEEZING Aspirin (Aspirin 81 Mg Tab.Chew) 81 mg GT DAILY [facility] Last Admin: 01/27/20 08:06 Dose: 81 mg Documented by: Chlorhexidine Gluconate (Chlorhexidine 15 Ml) 15 ml PO BID [facility] Last Admin: 01/27/20 08:07 Dose: 15 ml Documented by: Dexamethasone Sodium Phosphate (Dexamethasone 10 Mg/Ml Vial) 6 mg IV DAILY [facility] Stop: 01/27/20 10:01 Last Admin: 01/27/20 08:07 Dose: 6 mg Documented by: Heparin Sodium (Porcine) (Heparin Injection (Vial) 5,000 Unit/Ml Vial) 0 unit IV UD PRN; Protocol PRN Reason: dose adjustment Last Admin: 01/27/20 00:51 Dose: 3,000 unit Documented by: Heparin Sodium/Dextrose () 25,000 units in 250 mls @ 11 mls/hr IV .[id number] [facility]; Protocol Last Titration: 01/27/20 07:00 Dose: Infused Documented by: Fentanyl Citrate 1,000 mcg/ (Sodium Chloride) 100 mls @ 2.5 mls/hr CONT INF .Q40H [facility]; Protocol Last Titration: 01/27/20 07:00 Dose: 0 mcg/hr, 0 mls/hr Documented by: Sodium Chloride () 250 mls @ 15 mls/hr IV .[id number] PRN PRN Reason: Saline Flush Sodium Chloride () 250 mls @ 15 mls/hr IV .[id number] PRN PRN Reason: Additional IVPB Infusion Enteral Nutritional Formula (Vital Af 1.2 José Miguel Liquid) 1,000 mls @ 60 mls/hr GT .[id number] [facility] Last Admin: 01/27/20 02:57 Dose: 60 mls/hr Documented by: Pantoprazole Sodium 40 mg/ (Sodium Chloride) 110 mls @ 330 mls/hr IV Q12 [facility] Last Admin: 01/27/20 09:19 Dose: 330 mls/hr Documented by: Dexmedetomidine HCl 1,000 mcg/ (Sodium Chloride) 250 mls @ 9.863 mls/hr CONT INF .[id number] [facility]; Protocol Last Titration: 01/27/20 07:00 Dose: 1.5 mcg/kg/hr, 28.8 mls/hr Documented by: Insulin Glargine (Insulin Glargine 100 Units/Ml Pen) 20 units SC BID [facility] Last Admin: 01/27/20 08:09 Dose: 20 u Documented by: Insulin Human Lispro (Insulin Lispro 100 Unit/Ml Insuln.Pen) 0 unit SC Q6 [facility]; Protocol Last Admin: 01/27/20 07:01 Dose: 3 units Documented by: Metoprolol Tartrate (Metoprolol Tartrate 25 Mg Tablet) 25 mg PO BID [facility] Last Admin: 01/27/20 08:06 Dose: 25 mg Documented by: Ondansetron HCl (Ondansetron 4 Mg/2 Ml Vial) 4 mg IV Q8H PRN PRN PRN Reason: NAUSEA/VOMITING Polyethylene Glycol (Polyethylene Glycol 3350 17 Gm Packet) 34 gm PO X1 PRN PRN Reason: Bowel Movement Senna/Docusate Sodium (Senna/Docusate Sodium 1 Tablet) 2 tablet PO BID [facility] Last Admin: 01/27/20 08:05 Dose: 2 tablet Documented by: Sodium Chloride (0.9% Saline Lock 10 Ml Syringe) 10 - 40 ml IV UD PRN PRN Reason: SALINE FLUSH Last Admin: 01/26/20 04:14 Dose: 10 ml Documented by: Tacrolimus (Tacrolimus 0.5 Mg Capsule) 0.5 mg GT BID [facility] Last Admin: 01/27/20 08:17 Dose: 0.5 mg Documented by: Medical Necessity - Tobacco Use Smoking Status: Former smoker Tobacco Use: Non-smoker Assessment/Plan All Active Problems (Last Updated 09/02/18 @ 13:55 by Katheryn Mosqueda) TUCKER (acute kidney injury) (Acute) a fib with rvr (Acute) COVID-19 virus infection (Acute) Acute respiratory failure with hypoxia (Acute) ESRD s/p renal transplant TUCKER ATN with COVID-19 Hypernatremia resolved Hyperkalemia resolved COVID-19 Scr 1.36 better K normal no need for SUPER[employer]OR [employer] today avoid nephrotoxins possible extubation today in am Patient has functional AV fistula he got dialysis during this admission. Per transplant level vial curvature gauger restarted tacrolimus 0.5 mg p.o. twice daily His home dose is 1 mg p.o. twice daily but for now we will just use the low-dose as above as instructed by transplant nephrology. Can use diuretics as needed. We will resume CellCept and increased dose of tacrolimus after discussing with transplant nephrology in the future. Discussed with ICU team during a.m. rounds.
--- NOTE | 2020-01-27 10:00 | CASEMGMT ---
MONIQUE CM Note: participated in ICU interdisciplinary rounds. Patient on ventilator
--- NOTE | 2020-01-27 10:30 | NURSING ---
Patient extubated by Latia GONZALEZ with this RN at bedside and Dr Hazel watching outside of room. Patient successfully extubated at 1025 and placed on Airvo 60L 40%, tolerating well. Will continue monitoring
--- NOTE | 2020-01-27 11:20 | PN.ID_ITS ---
Patient Problems: Active and Suspected Problems (Last Updated 09/02/18 @ 13:55 by Katheryn Mosqueda) TUCKER (acute kidney injury) (Acute) a fib with rvr (Acute) COVID-19 virus infection (Acute) Acute respiratory failure with hypoxia (Acute) Subjective: Extubated this AM, feeling ok, breathing better - Physical Exam Vitals/I&O's: Vital Signs Temp Pulse Resp BP Pulse Ox 101.1 F H 93 21 H 109/76 101 01/27/20 09:00 01/27/20 09:00 01/27/20 09:00 01/27/20 09:00 01/27/20 09:00 Oxygen Flow Rate (L/min) 50 Oxygen Delivery Method Mechanical Ventilator Weight: 78.9 kg Body Mass Index (BMI) 26.0 Intake and Output for Last 24 Hours 01/25/20 01/26/20 01/27/20 23:59 23:59 23:59 Intake Total 3736.71 / 3775.01 5350.88 / 5395.68 2205.55 / 2205.55 Output Total 4199 / 4199 3750 / 3750 530 / 530 Balance -462.29 / -423.99 1600.88 / 1645.68 1675.55 / 1675.55 General: Alert, Cooperative, No apparent distress Lungs: Diminished, Rhonchi Cardiovascular: Regular rate, Regular Rhythm Abdomen: Soft, Non Tender, Non-Distended Skin: No rashes Microbiology Past 72 Hours 01/18/20 16:25 Blood Culture (Wb) - Anticubital Left Blood Culture - Final No growth in 5 days. 01/18/20 16:36 Blood Culture (Wb) - Left Forearm Blood Culture - Final No growth in 5 days. Laboratory Results 01/24/20 06:10: Diff Path Review Reviewed 01/25/20 04:20: Diff Path Review Reviewed 01/26/20 02:15: Diff Path Review Reviewed 01/26/20 12:30: Potassium 4.7 01/26/20 12:30: Potassium Cancelled 01/26/20 12:30: Troponin I 0.098 H 01/26/20 12:30: Procalcitonin 0.63 H 01/26/20 12:56: POC Glucose 236 H 01/26/20 15:15: APTT 146.1 H* 01/26/20 17:42: POC Glucose 213 H 01/26/20 22:30: APTT 38.5 H 01/27/20 00:55: POC Glucose 170 H 01/27/20 05:15: WBC 18.1 H, RBC 3.20 L, Hgb 9.2 L, Hct 29.6 L, MCV 92.5, MCH 28.8, MCHC 31.1 L, RDW Std Deviation 46.6 H, RDW Coeff of Genaro 13.9, Plt Count 256, MPV 11.0, Immature Gran % (Auto) 2.300 H, Neut % (Auto) 89.9 H, Lymph % (Auto) 4.1 L, [place] % (Auto) 1.8, Eos % (Auto) 1.8, Baso % (Auto) 0.1, Absolute Neuts (auto) 16.3 H, Absolute Lymphs (auto) 0.75 L, Nucleated RBC % 0.2 01/27/20 05:15: Sodium 140, Potassium 4.6, Chloride 107, Carbon Dioxide 27.0, Anion Gap 6, BUN 65 H, Creatinine 1.36 H, Estim Creat Clear Calc 60.07, Est GFR (MDRD) Af Amer 70, Est GFR (MDRD) Non-Af 58 L, BUN/Creatinine Ratio 47.8 H, Glucose 160 H, Calcium 8.4 L 01/27/20 06:59: POC Glucose 156 H 01/27/20 07:30: APTT 44.7 H Current Medications Acetaminophen (Acetaminophen 650 Mg/20 Ml Udc) 650 mg GT Q6H PRN PRN PRN Reason: Pain Score 1-10/Temp > 100.7 F Last Admin: 01/27/20 08:05 Dose: 650 mg Documented by: Albuterol Sulfate (Albuterol 2.5 Mg/3 Ml Vial.Neb.) 2.5 mg INHALATION Q2H PRN PRN PRN Reason: WHEEZING Aspirin (Aspirin 81 Mg Tab.Chew) 81 mg GT DAILY [facility] Last Admin: 01/27/20 08:06 Dose: 81 mg Documented by: Chlorhexidine Gluconate (Chlorhexidine 15 Ml) 15 ml PO BID [facility] Last Admin: 01/27/20 08:07 Dose: 15 ml Documented by: Heparin Sodium (Porcine) (Heparin Injection (Vial) 5,000 Unit/Ml Vial) 0 unit IV UD PRN; Protocol PRN Reason: dose adjustment Last Admin: 01/27/20 00:51 Dose: 3,000 unit Documented by: Heparin Sodium/Dextrose () 25,000 units in 250 mls @ 11 mls/hr IV .[id number] KEARA; Protocol Last Titration: 01/27/20 09:00 Dose: Infused Documented by: Fentanyl Citrate 1,000 mcg/ (Sodium Chloride) 100 mls @ 2.5 mls/hr CONT INF .Q40H KEARA; Protocol Last Titration: 01/27/20 07:00 Dose: 0 mcg/hr, 0 mls/hr Documented by: Sodium Chloride () 250 mls @ 15 mls/hr IV .[id number] PRN PRN Reason: Saline Flush Sodium Chloride () 250 mls @ 15 mls/hr IV .[id number] PRN PRN Reason: Additional IVPB Infusion Enteral Nutritional Formula (Vital Af 1.2 José Miguel Liquid) 1,000 mls @ 60 mls/hr GT .[id number] [facility] Last Admin: 01/27/20 02:57 Dose: 60 mls/hr Documented by: Pantoprazole Sodium 40 mg/ (Sodium Chloride) 110 mls @ 330 mls/hr IV Q12 [facility] Last Admin: 01/27/20 09:19 Dose: 330 mls/hr Documented by: Dexmedetomidine HCl 1,000 mcg/ (Sodium Chloride) 250 mls @ 9.863 mls/hr CONT INF .[id number] [facility]; Protocol Last Titration: 01/27/20 07:00 Dose: 1.5 mcg/kg/hr, 28.8 mls/hr Documented by: Insulin Glargine (Insulin Glargine 100 Units/Ml Pen) 20 units SC BID [facility] Last Admin: 01/27/20 08:09 Dose: 20 u Documented by: Insulin Human Lispro (Insulin Lispro 100 Unit/Ml Insuln.Pen) 0 unit SC Q6 [facility]; Protocol Last Admin: 01/27/20 07:01 Dose: 3 units Documented by: Metoprolol Tartrate (Metoprolol Tartrate 25 Mg Tablet) 25 mg PO BID [facility] Last Admin: 01/27/20 08:06 Dose: 25 mg Documented by: Ondansetron HCl (Ondansetron 4 Mg/2 Ml Vial) 4 mg IV Q8H PRN PRN PRN Reason: NAUSEA/VOMITING Polyethylene Glycol (Polyethylene Glycol 3350 17 Gm Packet) 34 gm PO X1 PRN PRN Reason: Bowel Movement Senna/Docusate Sodium (Senna/Docusate Sodium 1 Tablet) 2 tablet PO BID [facility] Last Admin: 01/27/20 08:05 Dose: 2 tablet Documented by: Sodium Chloride (0.9% Saline Lock 10 Ml Syringe) 10 - 40 ml IV UD PRN PRN Reason: SALINE FLUSH Last Admin: 01/26/20 04:14 Dose: 10 ml Documented by: Tacrolimus (Tacrolimus 0.5 Mg Capsule) 0.5 mg GT BID [facility] Last Admin: 01/27/20 08:17 Dose: 0.5 mg Documented by: Medical Necessity - Tobacco Use Smoking Status: Former smoker Tobacco Use: Non-smoker Route of nutrition/ use of supplements: [] Nutritional Intake: [] IV Site: [] Fernando Catheter: [] - Assessment/Plan Antibiotics: [] Assessment/Plan: [] Active and Suspected Problems (Last Updated 09/02/18 @ 13:55 by Katheryn Mosqueda) COVID-19 virus infection (Acute) Acute respiratory failure with hypoxia (Acute) covid with hypoxia, resp failure, renal transplant - on hep gtt, dex, and completed 5 doses of remdesivir today 01/22. D-dimer was 4.2. O2 stable and TUCKER resolved. Ongoing fever, may be related to precedex. Wbc slightly better today. Monitoring off of abx at this point. Now extubated. Will follow
--- NOTE | 2020-01-27 12:22 | EKG12_ITS ---
Test Reason : SVT Blood Pressure : / mmHG Vent. Rate : 181 BPM Atrial Rate : 210 BPM P-R Int : 000 ms QRS Dur : 122 ms QT Int : 274 ms P-R-T Axes : 000 030 020 degrees QTc Int : 475 ms Atrial fibrillation with premature ventricular or aberrantly conducted complexes Right bundle branch block Abnormal ECG When compared with ECG of 27-JAN-2020 19:06, MANUAL COMPARISON REQUIRED, DATA IS UNCONFIRMED Confirmed by ASH DAVILA, CATALINO ([id number]), script editor HENOK MAIN ([id number]) on 02/05/2020 12:31:04 PM Referred By: CHRISTA Confirmed By:CARMEN ALEMAN MD
--- NOTE | 2020-01-27 12:25 | EKG12_ITS ---
Test Reason : SVT Blood Pressure : / mmHG Vent. Rate : 179 BPM Atrial Rate : 093 BPM P-R Int : 000 ms QRS Dur : 112 ms QT Int : 306 ms P-R-T Axes : 000 031 007 degrees QTc Int : 528 ms Atrial fibrillation Right bundle branch block Abnormal ECG When compared with ECG of 27-JAN-2020 12:31, MANUAL COMPARISON REQUIRED, DATA IS UNCONFIRMED Confirmed by ASH DVAILA, CATALINO ([id number]), assistant production editor HENOK MAIN ([id number]) on 02/05/2020 12:31:15 PM Referred By: CHRISTA Confirmed By:CARMEN ALEMAN MD
[2020-01-27] MEDS: Adenosine 6 MG/2 ML Syringe IV (12:30)
--- NOTE | 2020-01-27 12:31 | EKG12_ITS ---
Test Reason : SVT Blood Pressure : / mmHG Vent. Rate : 133 BPM Atrial Rate : 133 BPM P-R Int : 112 ms QRS Dur : 108 ms QT Int : 324 ms P-R-T Axes : 041 013 -01 degrees QTc Int : 482 ms Sinus tachycardia with frequent Premature ventricular complexes and Fusion complexes ST & T wave abnormality, consider inferior ischemia Abnormal ECG When compared with ECG of 27-JAN-2020 12:25, MANUAL COMPARISON REQUIRED, DATA IS UNCONFIRMED Confirmed by ASH DAVILA, CATALINO ([id number]), newspaper or periodical editor HENOK MAIN ([id number]) on 02/05/2020 12:31:29 PM Referred By: CHRISTA Confirmed By:CARMEN ALEMAN MD
[2020-01-27] MEDS: Adenosine 6 MG/2 ML Syringe 12 MG IV (13:49)
[2020-01-27] MEDS: Digoxin 250 MCG/ML Ampul 500 MCG IV (13:49)
[2020-01-27 14:01] LABS: Bedside Glucose 148 mg/dL (70-110)
--- NOTE | 2020-01-27 14:54 | CON.PCM_ITS ---
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 ICU evaluation care for COVID-19 superimposed upon a history of hyperlipidemia, hypertension, and status post renal transplant who is referred for evaluation of atrial fibrillation with RVR. The patient's was extubated earlier this day. He was noted to have the appearance of atrial fibrillation with RVR. There was concern as to whether or not he could have an underlying SVT. He was treated with adenosine 12 mg IV push x1. He did appear to have transient subsequent conversion to what was reported to be an underlying sinus rhythm with PACs. He then reverted back to what appeared to be atrial fibrillation with RVR. He has been reported by the ICU staff is having a previous episode during his hospitalization. He had been treated with IV diltiazem which resulted in hypotension requiring subsequent IV vasopressor support. He had also been treated with IV amiodarone bolus which apparently assisted in returning him to sinus rhythm. He had also been placed on IV heparin during his initial evaluation based upon his underlying COVID-19 status. At the moment he appears to indicate that he can sense the heartbeat going fast. He has denied other forms of chest discomfort. He has had his shortness of breath and dyspnea reportedly related to his COVID-19 status. There has been no report of syncope. He has had previous outpatient cardiovascular evaluation/visit. This was for his history of hyperlipidemia and hypertension. He is also undergone previous noninvasive valuation with a transthoracic echocardiogram and an exercise tolerance test/imaging study. The results are as noted below. At the present time he remains in the ICU. He remains febrile. [] Past Medical History Allergies/Adverse Reactions: Allergies No Known Allergies Allergy (Verified 01/09/20 18:40) Home Medications: Ambulatory Orders Medication Instructions Recorded Famotidine [Pepcid] 20 mg PO DAILY 11/19/12 aspirin 81 mg tablet,delayed 81 mg PO DAILY tab 04/11/17 release mycophenolate mofetil 250 mg 500 mg PO BID 04/16/17 capsule prednisone 5 mg tablet 7.5 mg PO QDAY 04/16/17 tacrolimus 0.5 mg capsule 0.5 mg PO .COMPLEX 04/16/17 clonidine HCl 0.3 mg tablet 0.3 mg PO TID tab 11/30/17 Lisinopril [Zestril] 10 mg PO DAILY 11/07/18 Atorvastatin Calcium [Lipitor] 10 mg PO QHS 11/13/18 Cholecalciferol (Vitamin D3) 2,000 unit PO DAILY 11/13/18 [Vitamin D3] Diltiazem HCl [Taztia Xt] 360 mg PO DAILY 11/13/18 Levofloxacin [Levaquin] 750 mg PO DAILY 01/18/20 Sulfamethoxazole/Trimethoprim 1 tab PO DAILY 01/18/20 [Sulfamethoxazole-Tmp Ss Tablet] Past Medical History (Chronic Problems): Chronic Problems (Last Updated 09/02/18 @ 13:55 by Katheryn Mosqueda) Essential (primary) hypertension (Chronic) History of renal transplant (Chronic 2005) 2005 for congenital defect Right bundle branch block (Chronic) Hyperlipidemia (Chronic) Surgical History: - - renal x-plant, fistula, bilateral shoulder surgery Psychiatric History: No pertinent psych hx - *Family History Maternal Family History: Family History (Last Reviewed 06/01/17 @ 09:[address] Mundo Balderrama MD) Mother History of kidney disease History Items: No pertinent history Paternal Family History: Family History (Last Reviewed 06/01/17 @ 09:[address] Mundo Balderrama MD) Mother History of kidney disease History Items: No pertinent history Lives: With Family Smoking Status: Former smoker Tobacco Use: Non-smoker Alcohol: None Drugs: None Review of Systems - Review of Systems General: Reports: Fever. Denies: Fatigue, Night Sweats Cardiovascular: Reports: Shortness of Breath, Palpitations. Denies: Chest Discomfort, Orthopnea, PND, Peripheral Edema, Lightheadedness, Dizziness, Near Syncope, Syncope Respiratory: Reports: Shortness of Breath. Denies: Cough, Sputum Production, Hemoptysis Gastrointestinal: Denies: Hematemesis, Hematochezia, Melena Genitourinary: Denies: Dysuria, Hematuria Skin: Denies: Rash Subjectve: This is a 54-year-old white male who appears to be resting reasonably comfortably at the moment in no acute distress. Objective: Vital Signs Temp Pulse Resp BP Pulse Ox 100.4 F H 115 H 23 H 115/88 H 95 01/27/20 12:00 01/27/20 14:00 01/27/20 14:00 01/27/20 14:00 01/27/20 14:00 Oxygen Flow Rate (L/min) 60 Oxygen Delivery Method Airvo Weight: 173 lb 15.115 oz Body Mass Index (BMI) 26.0 Intake and Output for Last 24 Hours 01/25/20 01/26/20 01/27/20 23:59 23:59 23:59 Intake Total 3736.71 / 3775.01 5350.88 / 5395.68 2403.55 / 2403.55 Output Total 4199 / 4199 3750 / 3750 3880 / 3880 Balance -462.29 / -423.99 1600.88 / 1645.68 -1476.45 / -1476.45 General: Awake, Alert, Oriented x 3, Cooperative, Ill Appearing HEENT: Atraumatic, Normocephalic, PERRL, EOMI, Sclera Non Icteric Neck: Supple, Good ROM, No JVD Lungs: Rhonchi Cardiovascular: Irregular Rhythm, Normal S1, Normal S2 Abdomen: Bowel Sounds Present, Soft Extremities: No edema Neurological: No Focal Motor or Sensory Deficit Psych/Mental Status: Appropriate 01/26/20 15:15: APTT 146.1 H* 01/26/20 22:30: APTT 38.5 H 01/27/20 05:15: WBC 18.1 H, RBC 3.20 L, Hgb 9.2 L, Hct 29.6 L, MCV 92.5, MCH 28.8, MCHC 31.1 L, Plt Count 256, MPV 11.0, Immature Gran % (Auto) 2.300 H, Neut % (Auto) 89.9 H, Lymph % (Auto) 4.1 L, [place] % (Auto) 1.8, Eos % (Auto) 1.8, Baso % (Auto) 0.1, Absolute Neuts (auto) 16.3 H, Nucleated RBC % 0.2 01/27/20 05:15: Sodium 140, Potassium 4.6, Chloride 107, Carbon Dioxide 27.0, Anion Gap 6, BUN 65 H, Creatinine 1.36 H, Est GFR (MDRD) Af Amer 70, Est GFR (MDRD) Non-Af 58 L, BUN/Creatinine Ratio 47.8 H, Glucose 160 H, Calcium 8.4 L 01/27/20 07:30: APTT 44.7 H Rhythm: Atrial fibrillation; intermittent episodes of sinus rhythm with PACs EKG: Atrial fibrillation; right bundle branch block; nonspecific ST/T wave abnormality ECHO: 12-12-2018 Interpretation Summary The estimated ejection fraction is 55 %. Mild aortic stenosis. Mild (1+) aortic valve insufficiency. Stress Test: 09/29/2016 Stress Test Report: Exercise myocardial perfusion stress test 51-year-old man with a history of abnormal EKG Stress protocol: Resting EKG demonstrates normal sinus rhythm with a rate of 79 bpm and a right bundle branch block. The resting blood pressure was 162/102. The patient exercised according to the regular Hussein protocol for a total duration of 5 minutes completing 2 minutes into stage II of the Hussein protocol. The maximum heart rate attained was 142 bpm which was 84% of the maximum predicted heart rate. The maximum workload attained 7 METS. Rest no EKG changes were noted other than the right bundle branch block. During exercise there was approximately 1.[address] depression noted in leads V2 and V3 which were downsloping as well as V4. Frequent premature ventricular complexes were noted at peak exercise during recovery the EKG changes returned to normal. No chest pain was noted. The resting blood pressure was 162/102 with a peak blood pressure of 240/98 with a rate pressure product of 30,500. Myocardial perfusion protocol: 12.0 mCi of technetium 99m sestamibi was injected at rest. The patient then exercised according to the regular Hussein protocol for 5 minutes attaining 84% of the maximum predicted heart rate. At peak exercise 36.0 mCi of technetium 99m sestamibi was injected. Stress images were obtained. Stress and resting images were reconstructed and compared in the short axis vertical long and horizontal long axis. Gated images were also obtained. Perfusion SPECT analysis. View of the images demonstrate normal uptake of tracer noted in all areas of the myocardium and the resting images similarly demonstrate normal uptake of tracer noted in all areas of the myocardium. No areas of reversibility are noted suggest ischemia or infarct. Gated SPECT analysis: Gated ejection fraction is noted to be 64%. Conclusion : Exercise myocardial perfusion stress test with EKG changes suggestive of ischemia Right bundle branch block noted Hypertensive response to exercise Nuclear images demonstrate no reversible defects. CXR: MPRESSION: Extensive bilateral airspace opacities increase in the right lung when compared to prior study. at 2329 Reported and signed by: Macrina Herrmann DO Assessment/Plan 1. Atrial fibrillation with RVR The patient has had atrial fibrillation with RVR. He has had no history of this in the past. This may be related to his underlying COVID-19 status superimposed upon his history of hypertension, etc. At the moment he has had continued episodes of RVR. He does seem to sense the heart rate. He describes no other acute symptoms. His blood pressure appears to be stable. An attempt will be made to slow his rate and/or convert his rhythm. Based upon his hemodynamics and his response to IV diltiazem in the past and already receiving oral beta-blockers this day he will have an attempt at digitalis. If this is unsuccessful then he may need a reattempt at IV amiodarone. If he has to remain on such an agent then he would have to have input with respect to how to appropriately adjust his medications with his immunosuppressive agents, etc. He is remaining on IV anticoagulant therapy. Depending upon his clinical course and his response to medical therapy he may or may not need an attempt at synchronized biphasic DC cardioversion. Over time, depending upon his clinical course and his COVID-19 status consideration can be given to additional follow-up noninvasive studies such as a transthoracic echocardiogram to further assess his atrial size as well as his ventricular size, wall motion, and systolic function as well as the need for repeat exercise tolerance test/imaging study to monitor for any obvious evidence of myocardial ischemia, etc. 2. Status post renal transplant The patient is status post renal transplant. His renal function appears to be stable at this time. Depending upon his cardiovascular course and his needs for cardiovascular medical therapy consideration may have to be given with input from pharmacy, etc., and how to adjust medications. 3. Hyperlipidemia He can continue lipid-lowering therapy as deemed appropriate. 4. Hypertension His blood pressure is being followed. Hopefully his medicines can be adjusted t o avoid significant hypotension and the need for repeat IV vasopressor support. 5. COVID-19 He is COVID-19 positive. He was just extubated earlier this day. He is continuing to be followed by pulmonology/critical care medicine and infectious disease and internal medicine. Comment: The patient's case was discussed and reviewed with Dr. Hazel of the [facility] ICU staff.
--- NOTE | 2020-01-27 14:58 | CASEMGMT ---
CHRISTIANO spoke w/Grecia De Luna with [facility], pt has Medicaid through [facility] services. CHRISTIANO gave her a brief update. Grecia's number is [phone]. [facility] [address]
[2020-01-27 16:56] LABS: Partial Thromboplast Time 80.3 Seconds (24.1-36.2)
[2020-01-27] MEDS: HEPARIN/D5w 25,000 UNITS 25,000 UNITS/250 ML IV.SOLN. 400 UNITS IV (17:00)
[2020-01-27] MEDS: Digoxin 250 MCG/ML Ampul IV (18:02)
[2020-01-27 18:11] LABS: Bedside Glucose 130 mg/dL (70-110)
[2020-01-27] MEDS: Metoprolol Tartrate 50 MG Tablet PO (18:57)
[2020-01-27] MEDS: HEPARIN/D5w 25,000 UNITS 25,000 UNITS/250 ML IV.SOLN. 3 UNITS IV (19:00)
--- NOTE | 2020-01-27 19:06 | EKG12_ITS ---
Test Reason : SVT Blood Pressure : / mmHG Vent. Rate : 173 BPM Atrial Rate : 173 BPM P-R Int : 160 ms QRS Dur : 104 ms QT Int : 268 ms P-R-T Axes : 000 020 -02 degrees QTc Int : 454 ms Sinus tachycardia with Fusion complexes Marked ST abnormality, possible anteroseptal subendocardial injury Right bundle branch block Abnormal ECG No previous ECGs available Confirmed by ASH DAVILA, CATALINO ([id number]), non linear editor HENOK MAIN ([id number]) on 02/05/2020 12:32:14 PM Referred By: CHRISTA Confirmed By:CARMEN ALEMAN MD
--- NOTE | 2020-01-27 19:06 | EKG12_ITS ---
Test Reason : SVT Blood Pressure : / mmHG Vent. Rate : 169 BPM Atrial Rate : 169 BPM P-R Int : 068 ms QRS Dur : 144 ms QT Int : 298 ms P-R-T Axes : 000 007 -10 degrees QTc Int : 499 ms Sinus tachycardia with short TN Right bundle branch block Abnormal ECG When compared with ECG of 27-JAN-2020 12:22, MANUAL COMPARISON REQUIRED, DATA IS UNCONFIRMED Confirmed by ASH DAVILA, CATALINO ([id number]), primer expeditor and drier HENOK MAIN ([id number]) on 02/05/2020 12:31:47 PM Referred By: CHRISTA Confirmed By:CARMEN ALEMAN MD
[2020-01-27] MEDS: dilTIAZem 25 MG/5 ML Vial 10 MG IV BOLUS (20:09)
[2020-01-27] MEDS: 0.9% Saline Lock 10 ML Syringe IV ×2 (20:10→23:48)
[2020-01-27 21:10] LABS: Bedside Glucose 85 mg/dL (70-110)
[2020-01-27] MEDS: Acetaminophen 650 MG Suppository RECTAL (21:31)
[2020-01-27 23:25] LABS: Partial Thromboplast Time 34.2 Seconds (24.1-36.2)
[2020-01-27] MEDS: Digoxin 250 MCG/ML Ampul 125 MCG IV (23:45)
--- NOTE | 2020-01-27 23:58 | NURSING ---
heparin drip increased to 500 units/hr
[2020-01-28] VITALS (45 sets, daily range): BP systolic 89–170; BP diastolic 49–97; PULSE 15–193; RESP 12–40; TEMP 36.9–38.7; O2SAT 65–99
[2020-01-28] LABS: Bedside Glucose 76 mg/dL (70-110)
--- NOTE | 2020-01-28 00:37 | EKG12_ITS ---
Test Reason : DYSRHYTHMIA Blood Pressure : / mmHG Vent. Rate : 153 BPM Atrial Rate : 159 BPM P-R Int : 000 ms QRS Dur : 120 ms QT Int : 346 ms P-R-T Axes : 000 015 027 degrees QTc Int : 552 ms Possible Sinus Tachycardia Right bundle branch block Abnormal ECG When compared with ECG of 26-JAN-2020 03:44, MANUAL COMPARISON REQUIRED, DATA IS UNCONFIRMED Confirmed by ASH DAVILA, CATALINO ([id number]), publications editor NGHIA DENSON ([id number]) on 02/02/2020 9:37:23 AM Referred By: Confirmed By:CARMEN ALEMAN MD
--- NOTE | 2020-01-28 02:25 | NURSING ---
resp notified resp 37-40.
[2020-01-28] MEDS: Acetaminophen 650 MG Suppository RECTAL (02:27)
--- NOTE | 2020-01-28 02:52 | NURSING ---
pt placed on bipap. at 25/11. fi02 at 80. hrt 170s. amnio drup stared
[2020-01-28] MEDS: Amiodarone 360 MG in Dextrose 5% Viaflo Bag 192.8 ML 33.3 MG CONT INF ×2 (03:00→03:12)
[2020-01-28] MEDS: 0.9% Saline Lock 10 ML Syringe IV (05:22)
[2020-01-28 05:55] LABS: Partial Thromboplast Time 113.4 Seconds (24.1-36.2)
--- NOTE | 2020-01-28 06:56 | PCM.PN.INT ---
Subjective: The patient was seen and examined at the bedside this morning. Events from the last 24 hours have been reviewed. Shortly after the patient was extubated yesterday, he developed atrial fibrillation with RVR, which again led to decompensation in his breathing quality. Cardiology consultation was obtained and the patient did receive a dose of digoxin, which led to conversion to normal sinus rhythm. Nevertheless, overnight, the patient once again went into atrial fibrillation with a rapid ventricular rate. The patient has been treated with multiple medications and has been very difficult to control. He is currently on both amiodarone and Cardizem and remains tachycardic. His respiratory status has declined overnight and he is now requiring BiPAP with an FiO2 requirement of 80%. The patient remains on a continuous heparin infusion. He is currently documented to be overall net -1.6 L for the hospital admission. In addition, the patient did have fevers overnight with a T-max noted to be 101.6 ?F. Objective: The patient's most recent lab work, culture data and imaging studies have all been personally reviewed. Surface echocardiogram from November 2018 revealed normal LV size with an ejection fraction of 55%. Pulmonary artery systolic pressure was estimated to be 25 to 30 mmHg. Coronavirus testing was positive on January 01. Sputum and blood cultures have shown no growth to date. General: Alert, Cooperative, No apparent distress HEENT: Atraumatic, PERRLA, Normocephalic Oral: Dry Mucosa Neck: Supple, No Nodes, Trachea Midline Lungs: Diminished, Rales Cardiovascular: Normal S1, Normal S2, Irregular Rate, Tachycardic Abdomen: Bowel Sounds Present, Soft, Non Tender Extremities: No clubbing, No cyanosis, No edema Skin: No breakdown Musculoskeletal: No Tenderness to Palpation of Joints or Extremities Lymphatic: No Cervical, Supraclavicular, or Inguinal Adenopathy Neurological: Cranial nerves II-XII grossly intact, Neuro grossly intact Psych/Mental Status: Normal Affect, Appropriate Vital Signs Temp Pulse Resp BP Pulse Ox 99.6 F H 113 H 24 H 153/97 H 98 01/28/20 06:09 01/28/20 06:09 01/28/20 06:09 01/28/20 06:09 01/28/20 06:09 Oxygen Flow Rate (L/min) 60 Oxygen Delivery Method Bi-pap Weight: 160 lb 14.999 oz Body Mass Index (BMI) 26.0 Intake and Output for Last 24 Hours 01/26/20 01/27/20 01/28/20 23:59 23:59 23:59 Intake Total 5350.88 / 5395.68 2920.28 / 2920.28 258.91 / 258.91 Output Total 3750 / 3750 4915 / 4915 650 / 650 Balance 1600.88 / 1645.68 -1994.72 / -1994.72 -391.09 / -391.09 Labs (Last 48 Hours) 01/24/20 01/25/20 01/26/20 06:10 04:20 02:15 WBC RBC Hgb Hct MCV MCH MCHC RDW Std Deviation RDW Coeff of Genaro Plt Count MPV Immature Gran % (Auto) Neut % (Auto) Lymph % (Auto) [place] % (Auto) Eos % (Auto) Baso % (Auto) Absolute Neuts (auto) Absolute Lymphs (auto) Nucleated RBC % Diff Path Review Reviewed Reviewed Reviewed APTT Sodium Potassium Chloride Carbon Dioxide Anion Gap BUN Creatinine Estim Creat Clear Calc Est GFR (MDRD) Af Amer Est GFR (MDRD) Non-Af BUN/Creatinine Ratio Glucose Calcium Troponin I Procalcitonin POC Glucose 01/26/20 01/26/20 01/26/20 08:15 12:30 12:30 WBC RBC Hgb Hct MCV MCH MCHC RDW Std Deviation RDW Coeff of Genaro Plt Count MPV Immature Gran % (Auto) Neut % (Auto) Lymph % (Auto) [place] % (Auto) Eos % (Auto) Baso % (Auto) Absolute Neuts (auto) Absolute Lymphs (auto) Nucleated RBC % Diff Path Review APTT 198.7 H* Sodium Potassium 4.7 Cancelled Chloride Carbon Dioxide Anion Gap BUN Creatinine Estim Creat Clear Calc Est GFR (MDRD) Af Amer Est GFR (MDRD) Non-Af BUN/Creatinine Ratio Glucose Calcium Troponin I Procalcitonin POC Glucose 01/26/20 01/26/20 01/26/20 12:30 12:30 12:56 WBC RBC Hgb Hct MCV MCH MCHC RDW Std Deviation RDW Coeff of [place] Plt Count MPV Immature Gran % (Auto) Neut % (Auto) Lymph % (Auto) [place] % (Auto) Eos % (Auto) Baso % (Auto) Absolute Neuts (auto) Absolute Lymphs (auto) Nucleated RBC % Diff Path Review APTT Sodium Potassium Chloride Carbon Dioxide Anion Gap BUN Creatinine Estim Creat Clear Calc Est GFR (MDRD) Af Amer Est GFR (MDRD) Non-Af BUN/Creatinine Ratio Glucose Calcium Troponin I 0.098 H Procalcitonin 0.63 H POC Glucose 236 H 01/26/20 01/26/20 01/26/20 15:15 17:42 22:30 WBC RBC Hgb Hct MCV MCH MCHC RDW Std Deviation RDW Coeff of [place]aro Plt Count MPV Immature Gran % (Auto) Neut % (Auto) Lymph % (Auto) [place] % (Auto) Eos % (Auto) Baso % (Auto) Absolute Neuts (auto) Absolute Lymphs (auto) Nucleated RBC % Diff Path Review APTT 146.1 H* 38.5 H Sodium Potassium Chloride Carbon Dioxide Anion Gap BUN Creatinine Estim Creat Clear Calc Est GFR (MDRD) Af Amer Est GFR (MDRD) Non-Af BUN/Creatinine Ratio Glucose Calcium Troponin I Procalcitonin POC Glucose 213 H 01/27/20 01/27/20 01/27/20 00:55 05:15 05:15 WBC 18.1 H RBC 3.20 L Hgb 9.2 L Hct 29.6 L MCV 92.5 MCH 28.8 MCHC 31.1 L RDW Std Deviation 46.6 H RDW Coeff of Genaro 13.9 Plt Count 256 MPV 11.0 Immature Gran % (Auto) 2.300 H Neut % (Auto) 89.9 H Lymph % (Auto) 4.1 L [place] % (Auto) 1.8 Eos % (Auto) 1.8 Baso % (Auto) 0.1 Absolute Neuts (auto) 16.3 H Absolute Lymphs (auto) 0.75 L Nucleated RBC % 0.2 Diff Path Review APTT Sodium 140 Potassium 4.6 Chloride 107 Carbon Dioxide 27.0 Anion Gap 6 BUN 65 H Creatinine 1.36 H Estim Creat Clear Calc 60.07 Est GFR (MDRD) Af Amer 70 Est GFR (MDRD) Non-Af 58 L BUN/Creatinine Ratio 47.8 H Glucose 160 H Calcium 8.4 L Troponin I Procalcitonin POC Glucose 170 H 01/27/20 01/27/20 01/27/20 06:59 07:30 13:47 WBC RBC Hgb Hct MCV MCH MCHC RDW Std Deviation RDW Coeff of Gen[place] Plt Count MPV Immature Gran % (Auto) Neut % (Auto) Lymph % (Auto) [place] % (Auto) Eos % (Auto) Baso % (Auto) Absolute Neuts (auto) Absolute Lymphs (auto) Nucleated RBC % Diff Path Review APTT 44.7 H Sodium Potassium Chloride Carbon Dioxide Anion Gap BUN Creatinine Estim Creat Clear Calc Est GFR (MDRD) Af Amer Est GFR (MDRD) Non-Af BUN/Creatinine Ratio Glucose Calcium Troponin I Procalcitonin POC Glucose 156 H 148 H 01/27/20 01/27/20 01/27/20 15:35 18:05 21:05 WBC RBC Hgb Hct MCV MCH MCHC RDW Std Deviation RDW Coeff of Genaro Plt Count MPV Immature Gran % (Auto) Neut % (Auto) Lymph % (Auto) [place] % (Auto) Eos % (Auto) Baso % (Auto) Absolute Neuts (auto) Absolute Lymphs (auto) Nucleated RBC % Diff Path Review APTT 80.3 H Sodium Potassium Chloride Carbon Dioxide Anion Gap BUN Creatinine Estim Creat Clear Calc Est GFR (MDRD) Af Amer Est GFR (MDRD) Non-Af BUN/Creatinine Ratio Glucose Calcium Troponin I Procalcitonin POC Glucose 130 H 85 01/27/20 01/27/20 01/28/20 23:49 Unknown 05:20 WBC RBC Hgb Hct MCV MCH MCHC RDW Std Deviation RDW Coeff of Genaro Plt Count MPV Immature Gran % (Auto) Neut % (Auto) Lymph % (Auto) [place] % (Auto) Eos % (Auto) Baso % (Auto) Absolute Neuts (auto) Absolute Lymphs (auto) Nucleated RBC % Diff Path Review APTT 34.2 113.4 H* Sodium Potassium Chloride Carbon Dioxide Anion Gap BUN Creatinine Estim Creat Clear Calc Est GFR (MDRD) Af Amer Est GFR (MDRD) Non-Af BUN/Creatinine Ratio Glucose Calcium Troponin I Procalcitonin POC Glucose 76 Microbiology 01/26/20 12:30 Blood Culture (Wb) - Anticubital Right Blood Culture - Preliminary 01/26/20 13:12 Sputum, Tracheal Aspirate Gram Stain - Final Clinical Impression(s) from Imaging Studies Chest X-Ray 01/18/20 17:00 IMPRESSION: 1. Extensive multilobar airspace disease suggesting pneumonia, including viral causes. Electronically Signed: Tyrone Borrero MD ([place]) at 17:22 EST , Service support , Chest X-Ray 01/18/20 20:40 KUB X-Ray 01/23/20 00:01 IMPRESSION: 1. Appropriate positioning of supportive devices 2. Normal bowel gas pattern Electronically Signed: Jonathan Aguilar MD at 1:57 EST Tel , Service support , Chest X-Ray 01/26/20 12:09 IMPRESSION: Extensive bilateral airspace opacities increase in the right lung when compared to prior study. at [id number] Reported and signed by: Macrina Herrmann DO Electronically Signed: Macrina Herrmann DO at 23:28 EST Tel , Service support , Medical Necessity - Tobacco Use Smoking Status: Former smoker Tobacco Use: Non-smoker Assessment/Plan All Active Problems (Last Updated 09/02/18 @ 13:55 by Katheryn Mosqueda) TUCKER (acute kidney injury) (Acute) a fib with rvr (Acute) COVID-19 virus infection (Acute) Acute respiratory failure with hypoxia (Acute) RECOMMENDATIONS: 1. Continue rate/rhythm control strategy per cardiology recommendations. 2. Continue attempts at gentle diuresis as tolerated by hemodynamics and renal function. 3. Monitor tacrolimus level closely given potential interaction with amiodarone. 4. Continue to wean FiO2 to maintain oxygen saturations at or above 90%. 5. Transition patient from heparin to Lovenox. 6. Dietary advancement per speech therapy recommendations. IMPRESSIONS: 1. Acute hypoxemic respiratory failure secondary to COVID-19 pneumonia Continue current supportive measures. The patient was able to be successfully extubated on January 26. However, the patient's respiratory status remains tenuous, in light of issues with atrial fibrillation and rapid ventricular rate. Plan to continue to wean FiO2 to maintain oxygen saturations at or above 90%. Recommend dietary advancement per speech therapy recommendations. We will plan to continue gentle diuresis as tolerated by hemodynamics and renal function. The patient's heparin infusion can be transition to Lovenox today from my perspective. 2. Acute on chronic kidney disease status post renal transplantation Improving. Defer ongoing hemodialysis need to nephrology. Defer tacrolimus management per nephrology recommendations. 3. Paroxysmal atrial fibrillation with RVR The patient's rate/rhythm has been difficult to control. Cardiology is currently following to assist with management. The patient's heparin will be transitioned to Lovenox today. 4. Hypertension/hyperlipidemia/elevated troponin Complicates care, management, recovery and prognosis. Continue to hold antihypertensives for now. This note was generated with [employer] dictation software. It may contain incorrect words, spelling, and punctuation that were not noted in checking the note before signing. Inpatient E&M: 84223 [facility] H[facility] L3
[2020-01-28 07:15] LABS: Bedside Glucose 74 mg/dL (70-110)
[2020-01-28 07:18] LABS: Anion Gap 7 (5-15); BUN 53 mg/dL (7-18); BUN/Creat Ratio 35.6 RATIO (10-20); Calcium,Total 9.1 mg/dL (8.5-10.1); Chloride 112 mmol/L (98-107); Creatinine, Serum 1.49 mg/dL (0.70-1.30); EST Glomerular Filtration Rate 52 mL/min (>60); Est Glom Filt Rate - Afr Amer 63 mL/min (>60); Estimated Creatinine Clearance 54.83 ml/min; Glucose 82 mg/dL (74-106); Potassium 4.6 mmol/L (3.5-5.1); Sodium Level 145 mmol/L (136-145)
[2020-01-28 07:21] LABS: Absolute Lymphocyte Count 0.61 X10^3/uL (0.83-4.51); Absolute Neutrophil Count 30.7 X10^3/uL (2.0-7.7); Basophil# 0.08 X10^3/uL; Basophil% 0.2 % (0-1); Eosinophil# 0.01 X10^3/uL; Hematocrit 35.5 % (40-54); Hemoglobin 10.9 g/dL (13.0-16.5); Lymphocyte # 0.61 X10^3/ul (4.0); Lymphocyte % 1.9 % (19-41); Mean Corp Hgb Conc 30.7 g/dL (32-36); Mean Corpuscular Hgb 28.1 pg (27.0-32.0); Mean Corpuscular Volume 91.5 fL (80-94); Mean Platelet Vol. 11.4 fl (6.2-12.0); Monocyte# 0.56 X10^3/uL; Monocyte% 1.7 % (0-10); NRBC Flagged by Analyzer 0.2 % (0-5); Neutrophil # 30.69 X10^3/uL (2.7-7.7); Neutrophil % 94.5 % (47-70); POSITIVE COUNT YES; POSITIVE DIFFERENTIAL YES; Platelet Count 310 K/mm3 (150-450); RBC Distribution Width CV 13.9 % (11.6-14.6); RBC Distribution Width SD 45.6 fl (35.1-43.9); Red Blood Count 3.88 M/mm3 (4.6-6.2)
[2020-01-28 07:26] LABS: Differential Indicated SCAN CRITERIA MET; White Blood Count 32.5 K/mm3 (4.4-11.0)
[2020-01-28 07:59] LABS: Polychromasia 1+
[2020-01-28] MEDS: Amiodarone 360 MG in Dextrose 5% Viaflo Bag 192.8 ML 16.7 MG CONT INF ×2 (08:27→20:30)
--- NOTE | 2020-01-28 08:50 | RAD_ITS ---
STUDY: X-RAY CHEST REASON FOR EXAM: Male, 54 years old. WORSENING RESPIRATORY FAILURE. COVID POSITIVE. TECHNIQUE: Single AP portable view of the chest. COMPARISON: Comparison is made with prior examination dated 01/26/2020. FINDINGS: EKG electrodes are seen. The previously seen endotracheal tube and orogastric tube have been removed. Persistent diffuse bilateral airspace disease. There has been minimal improvement as compared to prior study. There is no demonstrated pleural abnormality. Normal size heart. Normal mediastinum and yessi. Normal visualized pulmonary arteries. There is atherosclerotic tortuosity of the aortic arch and descending thoracic aorta. There is a dextroscoliosis of the thoracic spine. Metallic anchors are seen overlying the right humeral head. There is no demonstrated abnormality of the visualized soft tissue structures of the upper abdomen. RAD/Chest 1 View (Portable) IMPRESSION: Minimal improvement in the diffuse bilateral airspace disease. The endotracheal tube and orogastric tube have been removed. Electronically Signed: Richard Pérez, at 9:30 EST , Service support ,
--- NOTE | 2020-01-28 10:48 | PN.RENAL_ITS ---
Patient Problems: Active and Suspected Problems (Last Updated 09/02/18 @ 13:55 by Katheryn Mosqueda) TUCKER (acute kidney injury) (Acute) a fib with rvr (Acute) COVID-19 virus infection (Acute) Acute respiratory failure with hypoxia (Acute) Subjective: no c/o per RN patients gives thumbs up Objective: Physical examination was deferred to preserve PPE and prevent further transmission of COVID-19 - Physical Exam Vitals/I&O's: Vital Signs Temp Pulse Resp BP Pulse Ox 99.1 F 99 19 H 158/86 H 96 01/28/20 07:00 01/28/20 10:00 01/28/20 09:00 01/28/20 09:00 01/28/20 09:00 Oxygen Flow Rate (L/min) 60 Oxygen Delivery Method Airvo Weight: 73 kg Body Mass Index (BMI) 26.0 Intake and Output for Last 24 Hours 01/26/20 01/27/20 01/28/20 23:59 23:59 23:59 Intake Total 5350.88 / 5395.68 2920.28 / 2920.28 535.91 / 535.91 Output Total 3750 / 3750 4915 / 4915 650 / 650 Balance 1600.88 / 1645.68 -1994.72 / -1994.72 -114.09 / -114.09 Microbiology Past 72 Hours 01/26/20 13:12 Sputum, Tracheal Aspirate Gram Stain - Final 01/26/20 13:12 Sputum, Tracheal Aspirate Respiratory Culture - Preliminary Presumptive C albicans 01/26/20 12:30 Blood Culture (Wb) - Anticubital Right Blood Culture - Preliminary Coag Negative Staph Laboratory Results 01/27/20 13:47: POC Glucose 148 H 01/27/20 15:35: APTT 80.3 H 01/27/20 18:05: POC Glucose 130 H 01/27/20 21:05: POC Glucose 85 01/27/20 23:49: POC Glucose 76 01/27/20 : APTT 34.2 01/28/20 05:15: POC Glucose 74 01/28/20 05:20: APTT 113.4 H* 01/28/20 05:20: WBC 32.5 H*, RBC 3.88 L, Hgb 10.9 L, Hct 35.5 L, MCV 91.5, MCH 28.1, MCHC 30.7 L, RDW Std Deviation 45.6 H, RDW Coeff of Genaro 13.9, Plt Count 310, MPV 11.4, Immature Gran % (Auto) 1.700 H, Neut % (Auto) 94.5 H, Lymph % (Auto) 1.9 L, [place] % (Auto) 1.7, Eos % (Auto) 0.0, Baso % (Auto) 0.2, Absolute Neuts (auto) 30.7 H, Absolute Lymphs (auto) 0.61 L, Nucleated RBC % 0.2, Diff Path Review June foll, Polychromasia 1+ 01/28/20 05:20: Sodium 145, Potassium 4.6, Chloride 112 H, Carbon Dioxide 26.0, Anion Gap 7, BUN 53 H, Creatinine 1.49 H, Estim Creat Clear Calc 54.83, Est GFR (MDRD) Af Amer 63, Est GFR (MDRD) Non-Af 52 L, BUN/Creatinine Ratio 35.6 H, Glucose 82, Calcium 9.1 Current Medications Acetaminophen (Acetaminophen 650 Mg Suppository) 650 mg RECTAL Q6H PRN PRN PRN Reason: Pain Score 1-10/Temp > 100.7 F Last Admin: 01/27/20 21:31 Dose: 650 mg Documented by: Albuterol Sulfate (Albuterol 2.5 Mg/3 Ml Vial.Neb.) 2.5 mg INHALATION Q2H PRN PRN PRN Reason: WHEEZING Aspirin (Aspirin 81 Mg Tab.Chew) 81 mg GT DAILY [facility] Last Admin: 01/27/20 08:06 Dose: 81 mg Documented by: Enoxaparin Sodium (Enoxaparin 80 Mg/0.8 Ml Syringe) 70 mg SC Q12 KEARA Sodium Chloride () 250 mls @ 15 mls/hr IV .[id number] PRN PRN Reason: Saline Flush Sodium Chloride () 250 mls @ 15 mls/hr IV .[id number] PRN PRN Reason: Additional IVPB Infusion Pantoprazole Sodium 40 mg/ (Sodium Chloride) 110 mls @ 330 mls/hr IV Q12 [facility] Last Infusion: 01/27/20 21:36 Dose: Infused Documented by: Diltiazem HCl 125 mg/ Dextrose 125 mls @ 5 mls/hr IV .Q25H KEARA; Protocol Last Titration: 01/28/20 10:00 Dose: 20 mg/hr, 20 mls/hr Documented by: Amiodarone HCl 360 mg/ (Dextrose) 200 mls @ 16.667 mls/hr CONT INF .Q12H [facility] Stop: 01/29/20 02:59 Last Admin: 01/28/20 08:27 Dose: 0.5 mg/min, 16.7 mls/hr Documented by: Insulin Glargine (Insulin Glargine 100 Units/Ml Pen) 10 units SC BID [facility] Insulin Human Lispro (Insulin Lispro 100 Unit/Ml Insuln.Pen) 0 unit SC Q6 [facility]; Protocol Last Admin: 01/28/20 05:22 Dose: Not Given Documented by: Metoprolol Tartrate (Metoprolol Tartrate 50 Mg Tablet) 50 mg PO BID [facility] Last Admin: 01/27/20 18:57 Dose: 50 mg Documented by: Ondansetron HCl (Ondansetron 4 Mg/2 Ml Vial) 4 mg IV Q8H PRN PRN PRN Reason: NAUSEA/VOMITING Polyethylene Glycol (Polyethylene Glycol 3350 17 Gm Packet) 34 gm PO X1 PRN PRN Reason: Bowel Movement Prednisone (Prednisone 5 Mg Tablet) 7.5 mg PO DAILY [facility] Senna/Docusate Sodium (Senna/Docusate Sodium 1 Tablet) 2 tablet PO BID [facility] Last Admin: 01/27/20 19:28 Dose: Not Given Documented by: Sodium Chloride (0.9% Saline Lock 10 Ml Syringe) 10 - 40 ml IV UD PRN PRN Reason: SALINE FLUSH Last Admin: 01/28/20 05:22 Dose: 10 ml Documented by: Tacrolimus (Tacrolimus 0.5 Mg Capsule) 0.5 mg GT BID [facility] Last Admin: 01/27/20 19:28 Dose: Not Given Documented by: Medical Necessity - Tobacco Use Smoking Status: Former smoker Tobacco Use: Non-smoker Assessment/Plan All Active Problems (Last Updated 09/02/18 @ 13:55 by Katheryn Mosqueda) TUCKER (acute kidney injury) (Acute) a fib with rvr (Acute) COVID-19 virus infection (Acute) Acute respiratory failure with hypoxia (Acute) ESRD s/p renal transplant TUCKER ATN with COVID-19 Hypernatremia resolved Hyperkalemia resolved COVID-19 Scr 1.49 better K normal no need for CREDIT CHARGE AUTHORIZER today avoid nephrotoxins he is post extubation Patient has functional AV fistula he got dialysis during this admission. Per transplant paper conservator restarted tacrolimus 0.5 mg p.o. twice daily His home dose of tacrolimus is 1 mg p.o. twice daily but for now we will just use the low-dose as above as instructed by transplant nephrology. Noted interaction between amiodarone and tacrolimus with possible increase level of tacrolimus so we will follow-up Prograf level done tomorrow morning before adjusting further the tacrolimus dose. Can use diuretics as needed. We will resume CellCept and increased dose of tacrolimus after discussing with transplant nephrology in the future. On amiodarone and Cardizem for rate control .
[2020-01-28 11:35] LABS: Bedside Glucose 136 mg/dL (70-110)
[2020-01-28] MEDS: Aspirin 81 MG TAB.CHEW GT (11:56)
[2020-01-28] MEDS: Metoprolol Tartrate 50 MG Tablet PO ×2 (11:57→20:17)
[2020-01-28] MEDS: Tacrolimus 0.5 MG Capsule GT ×2 (11:59→20:18)
[2020-01-28] MEDS: Senna/Docusate Sodium 1 Tablet 2 TABLET PO (11:59)
[2020-01-28] MEDS: predniSONE 5 MG Tablet 7.5 MG PO (12:01)
[2020-01-28] MEDS: Enoxaparin 80 MG/0.8 ML Syringe 70 MG SC ×2 (12:01→20:17)
[2020-01-28] MEDS: Furosemide 40 MG/4 ML Vial IV (12:25)
[2020-01-28 13:00] LABS: Pathologist Review Reviewed
--- NOTE | 2020-01-28 14:34 | PN_ITS ---
Patient Problems: Active and Suspected Problems (Last Updated 09/02/18 @ 13:55 by Katheryn Mosqueda) TUCKER (acute kidney injury) (Acute) a fib with rvr (Acute) COVID-19 virus infection (Acute) Acute respiratory failure with hypoxia (Acute) Reason for Visit: Follow-up for acute hypoxic hypoxic respiratory failure secondary to COVID-19 pneumonia, A. fib with RVR and other multiple comorbidities Objective: She was extubated yesterday. Late afternoon, he exhibited A. fib with RVR with difficult to control heart rate. Food Production Supervisor was consulted. Patient was started on Cardizem drip and amiodarone drip. Patient had digoxin yesterday. Heart rate in the morning around 110. Physical exam General: Lethargic. Awake. Low-volume, low pitch speech HEENT: Atraumatic, PERRLA, EOMI, Normocephalic Oral: No Gingival or Mucosal Lesions/ Ulcerations Neck: Supple, No JVD, Negative Carotid Bruits Lungs: Air entry diminished in bilateral lung bases. Bilateral expiratory rhonchi. Cardiovascular: Irregular rhythm, A. fib with RVR normal S1, Normal S2, No murmurs Abdomen: Bowel Sounds Present, Soft, Non Tender, Non-Distended : No renal angle tenderness. No suprapubic tenderness. Extremities: No edema, Capillary Refill Less than 3 Seconds Skin: No rashes, No breakdown Musculoskeletal: No Tenderness to Palpation of Joints or Extremities Neurological: Cranial nerves II-XII grossly intact, Deep Tendon Reflexes 2+/4 and Symmetrical, Neuro grossly intact Psych/Mental Status: Normal Affect, Appropriate. Vitals/I&O's: Vital Signs Temp Pulse Resp BP Pulse Ox 99.1 F 95 22 H 143/90 H 65 01/28/20 07:00 01/28/20 14:00 01/28/20 11:27 01/28/20 12:01 01/28/20 12:00 Oxygen Flow Rate (L/min) 60 Oxygen Delivery Method Airvo Weight: 160 lb 14.999 oz Body Mass Index (BMI) 26.0 Intake and Output for Last 24 Hours 01/26/20 01/27/20 01/28/20 23:59 23:59 23:59 Intake Total 5350.88 / 5395.68 2920.28 / 2920.28 1306.41 / 1306.41 Output Total 3750 / 3750 4915 / 4915 1350 / 1350 Balance 1600.88 / 1645.68 -1994.72 / -1993.72 -43.59 / -43.59 Microbiology Past 72 Hours 01/26/20 13:12 Sputum, Tracheal Aspirate Gram Stain - Final 01/26/20 13:12 Sputum, Tracheal Aspirate Respiratory Culture - Preliminary Presumptive C albicans 01/26/20 12:30 Blood Culture (Wb) - Anticubital Right Blood Culture - Preliminary Coag Negative Staph Laboratory Results 01/27/20 15:35: APTT 80.3 H 01/27/20 18:05: POC Glucose 130 H 01/27/20 21:05: POC Glucose 85 01/27/20 23:49: POC Glucose 76 01/27/20 : APTT 34.2 01/28/20 05:02: Tacrolimus Pending 01/28/20 05:15: POC Glucose 74 01/28/20 05:20: APTT 113.4 H* 01/28/20 05:20: WBC 32.5 H*, RBC 3.88 L, Hgb 10.9 L, Hct 35.5 L, MCV 91.5, MCH 28.1, MCHC 30.7 L, RDW Std Deviation 45.6 H, RDW Coeff of Genaro 13.9, Plt Count 310, MPV 11.4, Immature Gran % (Auto) 1.700 H, Neut % (Auto) 94.5 H, Lymph % (Auto) 1.9 L, Mathews % (Auto) 1.7, Eos % (Auto) 0.0, Baso % (Auto) 0.2, Absolute Neuts (auto) 30.7 H, Absolute Lymphs (auto) 0.61 L, Nucleated RBC % 0.2, Diff Path Review Reviewed, Polychromasia 1+ 01/28/20 05:20: Sodium 145, Potassium 4.6, Chloride 112 H, Carbon Dioxide 26.0, Anion Gap 7, BUN 53 H, Creatinine 1.49 H, Estim Creat Clear Calc 54.83, Est GFR (MDRD) Af Amer 63, Est GFR (MDRD) Non-Af 52 L, BUN/Creatinine Ratio 35.6 H, Glucose 82, Calcium 9.1 01/28/20 11:26: POC Glucose 136 H Current Medications Acetaminophen (Acetaminophen 650 Mg Suppository) 650 mg RECTAL Q6H PRN PRN PRN Reason: Pain Score 1-10/Temp > 100.7 F Last Admin: 01/27/20 21:31 Dose: 650 mg Documented by: Albuterol Sulfate (Albuterol 2.5 Mg/3 Ml Vial.Neb.) 2.5 mg INHALATION Q2H PRN PRN PRN Reason: WHEEZING Aspirin (Aspirin 81 Mg Tab.Chew) 81 mg GT DAILY [facility] Last Admin: 01/28/20 11:56 Dose: 81 mg Documented by: Enoxaparin Sodium (Enoxaparin 80 Mg/0.8 Ml Syringe) 70 mg SC Q12 [facility] Last Admin: 01/28/20 12:01 Dose: 70 mg Documented by: Sodium Chloride () 250 mls @ 15 mls/hr IV .[id number] PRN PRN Reason: Saline Flush Sodium Chloride () 250 mls @ 15 mls/hr IV .[id number] PRN PRN Reason: Additional IVPB Infusion Pantoprazole Sodium 40 mg/ (Sodium Chloride) 110 mls @ 330 mls/hr IV Q12 [facility] Last Infusion: 01/28/20 14:11 Dose: Infused Documented by: Diltiazem HCl 125 mg/ Dextrose 125 mls @ 5 mls/hr IV .Q25H [facility]; Protocol Last Titration: 01/28/20 14:00 Dose: 20 mg/hr, 20 mls/hr Documented by: Amiodarone HCl 360 mg/ (Dextrose) 200 mls @ 16.667 mls/hr CONT INF .Q12H [facility] Stop: 01/29/20 02:59 Last Admin: 01/28/20 08:27 Dose: 0.5 mg/min, 16.7 mls/hr Documented by: Vancomycin IV Pharmacy to Dose (1 ea/ Sodium Chloride) 500 mls @ 250 mls/hr IV PRN PRN; Protocol PRN Reason: Rx to Dose Cefepime HCl 1 gm/ Sodium (Chloride) 50 mls @ 100 mls/hr IV Q8 [facility] Last Infusion: 01/28/20 14:11 Dose: Infused Documented by: Vancomycin HCl 1,750 mg/ (Sodium Chloride) 535 mls @ 250 mls/hr IV X1 [facility] Stop: 01/28/20 16:08 Insulin Glargine (Insulin Glargine 100 Units/Ml Pen) 10 units SC BID [facility] Last Admin: 01/28/20 12:00 Dose: 10 u Documented by: Insulin Human Lispro (Insulin Lispro 100 Unit/Ml Insuln.Pen) 0 unit SC Q6 [facility]; Protocol Last Admin: 01/28/20 12:01 Dose: Not Given Documented by: Metoprolol Tartrate (Metoprolol Tartrate 50 Mg Tablet) 50 mg PO BID [facility] Last Admin: 01/28/20 11:57 Dose: 50 mg Documented by: Nutritional Formula (Lactose Free) (Ensure Clear 120 Ml Liquid) 120 ml PO TIDCM [facility] Ondansetron HCl (Ondansetron 4 Mg/2 Ml Vial) 4 mg IV Q8H PRN PRN PRN Reason: NAUSEA/VOMITING Polyethylene Glycol (Polyethylene Glycol 3350 17 Gm Packet) 34 gm PO X1 PRN PRN Reason: Bowel Movement Prednisone (Prednisone 5 Mg Tablet) 7.5 mg PO DAILY [facility] Last Admin: 01/28/20 12:01 Dose: 7.5 mg Documented by: Senna/Docusate Sodium (Senna/Docusate Sodium 1 Tablet) 2 tablet PO BID [facility] Last Admin: 01/28/20 11:59 Dose: 2 tablet Documented by: Sodium Chloride (0.9% Saline Lock 10 Ml Syringe) 10 - 40 ml IV UD PRN PRN Reason: SALINE FLUSH Last Admin: 01/28/20 05:22 Dose: 10 ml Documented by: Tacrolimus (Tacrolimus 0.5 Mg Capsule) 0.5 mg GT BID [facility] Last Admin: 01/28/20 11:59 Dose: 0.5 mg Documented by: STROKE Vital Signs/Narrative: Vital Signs Pulse Resp BP Pulse Ox 01/28/20 14:00 95 01/28/20 13:00 87 01/28/20 12:52 85 01/28/20 12:01 85 143/90 H 01/28/20 12:00 65 01/28/20 11:57 86 154/95 H 01/28/20 11:27 108 H 22 H 99 Medical Necessity - Tobacco Use Smoking Status: Former smoker Tobacco Use: Non-smoker Assessment/Plan All Active Problems (Last Updated 09/02/18 @ 13:55 by Katheryn Mosqueda) TUCKER (acute kidney injury) (Acute) a fib with rvr (Acute) COVID-19 virus infection (Acute) Acute respiratory failure with hypoxia (Acute) This is a 54 years old male patient presented to the emergency room because of shortness of breath, found to have COVID-19 pneumonia and his pulse ox dropped while patient was in the ED, needed to be intubated and started on mechanical ventilation. After admission, he developed TUCKER on CKD stage III requiring hemodialysis as well as new onset A. fib/flutter with RVR. #1 Acute hypoxic respiratory failure secondary to acute bilateral COVID-19 pneumonia: Patient has high D-dimer 4.26 and is on IV heparin drip. Patient completed 5 days of remdesivir. On IV Decadron. Chest x-ray showed extensive multilobar consolidation suggesting pneumonia. Patient was on mechanical ventilator which was extubated on 01/26 and currently on 40% FiO2 AIR VO. Gram stain of tracheal aspirate shows rare gram-positive cocci in clusters. Previous respiratory culture reported very rare mixed normal respiratory chevy. On IV cefepime Comanagement by local area network systems adminstrator and ID. 01/27: A. fib with RVR, difficult to control heart rate: Dr. Uribe was consulted and saw the patient yesterday. Currently on amiodarone and diltiazem drip. Metoprolol 50 mg p.o. twice daily. Patient also had total digoxin 750 mcg IV yesterday. On IV drip Heparin 2. Abnormal cardiac enzymes: Likely due to demand ischemia. EKG without acute segment changes. 3. Acute kidney injury on top of stage III chronic kidney disease: In the setting of history of renal transplant. Status post hemodialysis x2. Seen by dielectric embossing machine operator. No need for dialysis today. As per transplant dielectric embossing machine operator, tacrolimus resumed at lower dose 0.5 mg twice daily. Diuretic as needed. K4.6. BUN/creatinine 65/1.36, improving trend. 01/27: Serum creatinine 1.49, estimated creatinine clearance about 50 mils per minute. Serum creatinine is improving. Hold for dialysis as per dielectric embossing machine operator. Tacrolimus level tomorrow a.m as patient is on amiodarone which is Dr. Interaction with tacrolimus. #5 new onset atrial flutter/fibrillation: Currently sinus rhythm. Heart rate in 90s with intermittent 117/min today, he went back into A. fib with RVR, receiving IV amiodarone bolus. Now, he is back in sinus rhythm, blood pressure is borderline. He is also on metoprolol. On IV heparin drip for anticoagulation. #6 hypertension: Currently blood pressure borderline but stable.. Antihypertensive medications held. #7 hyperlipidemia: Statins held. #8 DVT prophylaxis: Remained on IV heparin drip. Clinical Impression(s) from Imaging Studies Chest X-Ray 01/18/20 17:00 IMPRESSION: 1. Extensive multilobar airspace disease suggesting pneumonia, including viral causes. Chest X-Ray 01/26/20 12:09 IMPRESSION: Extensive bilateral airspace opacities increase in the right lung when compared to prior study. Microbiology Past 72 Hours 01/26/20 13:12 Sputum, Tracheal Aspirate Gram Stain - Final 01/26/20 13:12 Sputum, Tracheal Aspirate Respiratory Culture - Preliminary Presumptive C albicans 01/26/20 12:30 Blood Culture (Wb) - Anticubital Right Blood Culture - Preliminary Coag Negative Staph Laboratory Results 01/27/20 15:35: APTT 80.3 H 01/27/20 18:05: POC Glucose 130 H 01/27/20 21:05: POC Glucose 85 01/27/20 23:49: POC Glucose 76 01/27/20 : APTT 34.2 01/28/20 05:02: Tacrolimus Pending 01/28/20 05:15: POC Glucose 74 01/28/20 05:20: APTT 113.4 H* 01/28/20 05:20: WBC 32.5 H*, RBC 3.88 L, Hgb 10.9 L, Hct 35.5 L, MCV 91.5, MCH 28.1, MCHC 30.7 L, RDW Std Deviation 45.6 H, RDW Coeff of Genaro 13.9, Plt Count 310, MPV 11.4, Immature Gran % (Auto) 1.700 H, Neut % (Auto) 94.5 H, Lymph % (Auto) 1.9 L, [place]ws % (Auto) 1.7, Eos % (Auto) 0.0, Baso % (Auto) 0.2, Absolute Neuts (auto) 30.7 H, Absolute Lymphs (auto) 0.61 L, Nucleated RBC % 0.2, Diff Path Review Reviewed, Polychromasia 1+ 01/28/20 05:20: Sodium 145, Potassium 4.6, Chloride 112 H, Carbon Dioxide 26.0, Anion Gap 7, BUN 53 H, Creatinine 1.49 H, Estim Creat Clear Calc 54.83, Est GFR (MDRD) Af Amer 63, Est GFR (MDRD) Non-Af 52 L, BUN/Creatinine Ratio 35.6 H, Glucose 82, Calcium 9.1 01/28/20 11:26: POC Glucose 136 H Inpatient E&M: 49385 Subs Hosp L3
--- NOTE | 2020-01-28 15:30 | PCM.PN.ID ---
Patient Problems: Active and Suspected Problems (Last Updated 09/02/18 @ 13:55 by Katheryn Mosqueda) TUCKER (acute kidney injury) (Acute) a fib with rvr (Acute) COVID-19 virus infection (Acute) Acute respiratory failure with hypoxia (Acute) Subjective: Afib overnight, worsened O2, continued fever - Physical Exam Vitals/I&O's: Vital Signs Temp Pulse Resp BP Pulse Ox 98.9 F 97 24 H 161/79 H 99 01/28/20 12:00 01/28/20 15:00 01/28/20 14:30 01/28/20 15:00 01/28/20 14:30 Oxygen Flow Rate (L/min) 60 Oxygen Delivery Method Airvo Weight: 73 kg Body Mass Index (BMI) 26.0 Intake and Output for Last 24 Hours 01/26/20 01/27/20 01/28/20 23:59 23:59 23:59 Intake Total 5350.88 / 5395.68 2920.28 / 2920.28 1315.74 / 1315.74 Output Total 3750 / 3750 4915 / 4915 1350 / 1350 Balance 1600.88 / 1645.68 -1994.72 / -1994.72 -34.26 / -34.26 General: Alert, Cooperative Lungs: Diminished Cardiovascular: Irregular Rate Abdomen: Soft, Non Tender, Non-Distended Skin: No rashes Microbiology Past 72 Hours 01/26/20 13:12 Sputum, Tracheal Aspirate Gram Stain - Final 01/26/20 13:12 Sputum, Tracheal Aspirate Respiratory Culture - Preliminary Presumptive C albicans 01/26/20 12:30 Blood Culture (Wb) - Anticubital Right Blood Culture - Preliminary Coag Negative Staph Laboratory Results 01/27/20 15:35: APTT 80.3 H 01/27/20 18:05: POC Glucose 130 H 01/27/20 21:05: POC Glucose 85 01/27/20 23:49: POC Glucose 76 01/27/20 : APTT 34.2 01/28/20 05:02: Tacrolimus Pending 01/28/20 05:15: POC Glucose 74 01/28/20 05:20: APTT 113.4 H* 01/28/20 05:20: WBC 32.5 H*, RBC 3.88 L, Hgb 10.9 L, Hct 35.5 L, MCV 91.5, MCH 28.1, MCHC 30.7 L, RDW Std Deviation 45.6 H, RDW Coeff of Genaro 13.9, Plt Count 310, MPV 11.4, Immature Gran % (Auto) 1.700 H, Neut % (Auto) 94.5 H, Lymph % (Auto) 1.9 L, [place] % (Auto) 1.7, Eos % (Auto) 0.0, Baso % (Auto) 0.2, Absolute Neuts (auto) 30.7 H, Absolute Lymphs (auto) 0.61 L, Nucleated RBC % 0.2, Diff Path Review Reviewed, Polychromasia 1+ 01/28/20 05:20: Sodium 145, Potassium 4.6, Chloride 112 H, Carbon Dioxide 26.0, Anion Gap 7, BUN 53 H, Creatinine 1.49 H, Estim Creat Clear Calc 54.83, Est GFR (MDRD) Af Amer 63, Est GFR (MDRD) Non-Af 52 L, BUN/Creatinine Ratio 35.6 H, Glucose 82, Calcium 9.1 01/28/20 11:26: POC Glucose 136 H Current Medications Acetaminophen (Acetaminophen 650 Mg Suppository) 650 mg RECTAL Q6H PRN PRN PRN Reason: Pain Score 1-10/Temp > 100.7 F Last Admin: 01/27/20 21:31 Dose: 650 mg Documented by: Albuterol Sulfate (Albuterol 2.5 Mg/3 Ml Vial.Neb.) 2.5 mg INHALATION Q2H PRN PRN PRN Reason: WHEEZING Aspirin (Aspirin 81 Mg Tab.Chew) 81 mg GT DAILY [facility] Last Admin: 01/28/20 11:56 Dose: 81 mg Documented by: Enoxaparin Sodium (Enoxaparin 80 Mg/0.8 Ml Syringe) 70 mg SC Q12 [facility] Last Admin: 01/28/20 12:01 Dose: 70 mg Documented by: Sodium Chloride () 250 mls @ 15 mls/hr IV .[id number] PRN PRN Reason: Saline Flush Sodium Chloride () 250 mls @ 15 mls/hr IV .[id number] PRN PRN Reason: Additional IVPB Infusion Pantoprazole Sodium 40 mg/ (Sodium Chloride) 110 mls @ 330 mls/hr IV Q12 [facility] Last Infusion: 01/28/20 14:11 Dose: Infused Documented by: Diltiazem HCl 125 mg/ Dextrose 125 mls @ 5 mls/hr IV .Q25H [facility]; Protocol Last Titration: 01/28/20 15:00 Dose: 20 mg/hr, 20 mls/hr Documented by: Amiodarone HCl 360 mg/ (Dextrose) 200 mls @ 16.667 mls/hr CONT INF .Q12H [facility] Stop: 01/29/20 02:59 Last Admin: 01/28/20 08:27 Dose: 0.5 mg/min, 16.7 mls/hr Documented by: Vancomycin IV Pharmacy to Dose (1 ea/ Sodium Chloride) 500 mls @ 250 mls/hr IV PRN PRN; Protocol PRN Reason: Rx to Dose Cefepime HCl 1 gm/ Sodium (Chloride) 50 mls @ 100 mls/hr IV Q8 [facility] Last Infusion: 01/28/20 14:11 Dose: Infused Documented by: Vancomycin HCl 1,750 mg/ (Sodium Chloride) 535 mls @ 250 mls/hr IV X1 [facility] Stop: 01/28/20 16:08 Last Admin: 01/28/20 15:09 Dose: 250 mls/hr Documented by: Insulin Glargine (Insulin Glargine 100 Units/Ml Pen) 10 units SC BID [facility] Last Admin: 01/28/20 12:00 Dose: 10 u Documented by: Insulin Human Lispro (Insulin Lispro 100 Unit/Ml Insuln.Pen) 0 unit SC Q6 [facility]; Protocol Last Admin: 01/28/20 12:01 Dose: Not Given Documented by: Metoprolol Tartrate (Metoprolol Tartrate 50 Mg Tablet) 50 mg PO BID [facility] Last Admin: 01/28/20 11:57 Dose: 50 mg Documented by: Nutritional Formula (Lactose Free) (Ensure Clear 120 Ml Liquid) 120 ml PO TIDCM [facility] Ondansetron HCl (Ondansetron 4 Mg/2 Ml Vial) 4 mg IV Q8H PRN PRN PRN Reason: NAUSEA/VOMITING Polyethylene Glycol (Polyethylene Glycol 3350 17 Gm Packet) 34 gm PO X1 PRN PRN Reason: Bowel Movement Prednisone (Prednisone 5 Mg Tablet) 7.5 mg PO DAILY [facility] Last Admin: 01/28/20 12:01 Dose: 7.5 mg Documented by: Senna/Docusate Sodium (Senna/Docusate Sodium 1 Tablet) 2 tablet PO BID [facility] Last Admin: 01/28/20 11:59 Dose: 2 tablet Documented by: Sodium Chloride (0.9% Saline Lock 10 Ml Syringe) 10 - 40 ml IV UD PRN PRN Reason: SALINE FLUSH Last Admin: 01/28/20 05:22 Dose: 10 ml Documented by: Tacrolimus (Tacrolimus 0.5 Mg Capsule) 0.5 mg GT BID [facility] Last Admin: 01/28/20 11:59 Dose: 0.5 mg Documented by: Medical Necessity - Tobacco Use Smoking Status: Former smoker Tobacco Use: Non-smoker Route of nutrition/ use of supplements: [] Nutritional Intake: [] IV Site: [] Fernando Catheter: [] - Assessment/Plan Antibiotics: [] Assessment/Plan: [] Active and Suspected Problems (Last Updated 09/02/18 @ 13:55 by Katheryn Mosqueda) COVID-19 virus infection (Acute) Acute respiratory failure with hypoxia (Acute) covid with hypoxia, resp failure, renal transplant - on hep gtt, dex, and completed 5 doses of remdesivir today 01/22. D-dimer was 4.2. O2 worse, off vent, ongoing issues with afib, continued fever, rising wbc. 1 of 2 bcx with staph epi. Sputum with some yeast. Will repeat bcx and start empiric vanc/cefepime. Will follow
[2020-01-28] MEDS: Ensure Clear 120 ML Liquid PO (16:52)
--- NOTE | 2020-01-28 17:02 | PCM.RX.CS ---
Consult Pharmacy has been consulted to manage selected antiobiotic: Vancomycin Type of Consult: New start Suspected Infection: Pneumonia Prior Doses of Antibiotics Received/Current Regimen: 1 DOSE OF 1750MG 01/28/20 AT 1509 Labs: Sodium 145 mmol/L (136-145) 01/28/20 05:20 Potassium 4.6 mmol/L (3.5-5.1) 01/28/20 05:20 Chloride 112 mmol/L (98-107) H 01/28/20 05:20 Carbon Dioxide 26.0 mmol/L (21.0-32.0) 01/28/20 05:20 Anion Gap 7 (5-15) 01/28/20 05:20 BUN 53 mg/dL (7-18) H 01/28/20 05:20 Creatinine 1.49 mg/dL (0.70-1.30) H 01/28/20 05:20 Est GFR (MDRD) Af Amer 63 mL/min (>60) 01/28/20 05:20 Est GFR (MDRD) Non-Af 52 mL/min (>60) L 01/28/20 05:20 BUN/Creatinine Ratio 35.6 RATIO (10-20) H 01/28/20 05:20 Glucose 82 mg/dL (74-106) 01/28/20 05:20 TROUGH LEVEL ORDERED PRIOR TO 4TH DOSE = 01/30/20 AT 0230 Microbiology: Microbiology 01/26/20 12:30 Blood Culture (Wb) - Right Forearm Blood Culture - Preliminary No growth in 48 hours. 01/26/20 13:12 Sputum, Tracheal Aspirate Gram Stain - Final 01/26/20 13:12 Sputum, Tracheal Aspirate Respiratory Culture - Preliminary Presumptive C albicans 01/26/20 12:30 Blood Culture (Wb) - Anticubital Right Blood Culture - Preliminary Coag Negative Staph 01/18/20 16:25 Blood Culture (Wb) - Anticubital Left Blood Culture - Final No growth in 5 days. 01/18/20 16:36 Blood Culture (Wb) - Left Forearm Blood Culture - Final No growth in 5 days. 01/19/20 01:45 Sputum, Induced/Lukens Gram Stain - Final 01/19/20 01:45 Sputum, Induced/Lukens Respiratory Culture - Final Weight used for dosin kg Estimated Creatinine Clearance: 55 Goal Trough: 15-20 mcg/mL Pharmacy Plan for Drug Dosing: Pharmacy Service will continue to monitor and adjust dosing as required.
--- NOTE | 2020-01-28 17:30 | PN.CARD_ITS ---
Subjectve: The patient was evaluated earlier this day. Despite his multiple medical issues he appeared to be resting comfortably. Objective: Vital Signs Temp Pulse Resp BP Pulse Ox 98.9 F 93 18 150/90 H 99 01/28/20 12:00 01/28/20 16:59 01/28/20 16:59 01/28/20 16:59 01/28/20 16:59 Oxygen Flow Rate (L/min) 60 Oxygen Delivery Method Airvo Weight: 160 lb 14.999 oz Body Mass Index (BMI) 26.0 Intake and Output for Last 24 Hours 01/26/20 01/27/20 01/28/20 23:59 23:59 23:59 Intake Total 5350.88 / 5395.68 2920.28 / 2920.28 1315.74 / 1315.74 Output Total 3750 / 3750 4915 / 4915 1350 / 1350 Balance 1600.88 / 1645.68 -1994.72 / -1994.72 -34.26 / -34.26 General: Awake, Cooperative, Ill Appearing Lungs: Rhonchi Cardiovascular: Regular Rhythm, Normal S1, Normal S2 Abdomen: Bowel Sounds Present, Soft 01/27/20 : APTT 34.2 01/28/20 05:20: APTT 113.4 H* 01/28/20 05:20: WBC 32.5 H*, RBC 3.88 L, Hgb 10.9 L, Hct 35.5 L, MCV 91.5, MCH 28.1, MCHC 30.7 L, Plt Count 310, MPV 11.4, Immature Gran % (Auto) 1.700 H, Neut % (Auto) 94.5 H, Lymph % (Auto) 1.9 L, [place] % (Auto) 1.7, Eos % (Auto) 0.0, Baso % (Auto) 0.2, Absolute Neuts (auto) 30.7 H, Nucleated RBC % 0.2 01/28/20 05:20: Sodium 145, Potassium 4.6, Chloride 112 H, Carbon Dioxide 26.0, Anion Gap 7, BUN 53 H, Creatinine 1.49 H, Est GFR (MDRD) Af Amer 63, Est GFR (MDRD) Non-Af 52 L, BUN/Creatinine Ratio 35.6 H, Glucose 82, Calcium 9.1 Rhythm: Sinus rhythm Medical Necessity - Tobacco Use Smoking Status: Former smoker Tobacco Use: Non-smoker Assessment/Plan 1. Atrial fibrillation with RVR The patient has had atrial fibrillation with RVR. He has had no history of this in the past. This may be related to his underlying COVID-19 status superimposed upon his history of hypertension, etc. He has received multiple rate limiting medications including beta-blockers, IV calcium channel antagonist, IV digitalis, as well as antiarrhythmic therapy with IV amiodarone. He is on anticoagulant therapy. At his evaluation earlier this day he appeared to be in sinus rhythm at the arnie e. At the moment he is going to continue medical therapy as he tolerates. His case was discussed with the pharmacy team earlier this day. Their assistance was requested with respect to monitoring his medication, dose levels, etc. with respect to interaction with his immunosuppressive agents. 2. Status post renal transplant The patient is status post renal transplant. His renal function appears to be stable at this time. Depending upon his cardiovascular course and his needs for cardiovascular medical therapy consideration may have to be given with input from pharmacy, etc., and how to adjust medications. 3. Hyperlipidemia He can continue lipid-lowering therapy as deemed appropriate. 4. Hypertension His blood pressure is being followed. Hopefully his medicines can be adjusted to avoid significant hypotension and the need for repeat IV vasopressor support. 5. COVID-19 He is COVID-19 positive. Chest x-ray was reviewed with Dr. Hazel. He has significant bilateral infi ltrates. He is continuing medical therapy per infectious disease and pulmonology. Depending upon his respiratory status he may or may not require repeat intubation. Comment: The patient's case was discussed and reviewed with Dr. Hazel of the [facility] ICU staff.
[2020-01-28 18:35] LABS: Bedside Glucose 211 mg/dL (70-110)
[2020-01-28] MEDS: Insulin Lispro 100 UNIT/ML INSULN.PEN SC (18:37)
[2020-01-28 23:31] LABS: Bedside Glucose 102 mg/dL (70-110)
--- NOTE | 2020-01-28 23:32 | CPS ---
Addendum entered by Tamiko Fritz 01/28/20 23:33: on bipap Original Note: o2 decreased to 50%
[2020-01-29] VITALS (40 sets, daily range): BP systolic 126–179; BP diastolic 7–89; PULSE 82–114; RESP 12–27; TEMP 37.2–37.8; O2SAT 9–98
[2020-01-29 05:06] LABS: Bedside Glucose 113 mg/dL (70-110)
--- NOTE | 2020-01-29 06:40 | PCM.PN.INT ---
Subjective: The patient was seen and examined at the bedside this morning. Events from the last 24 hours have been reviewed. The patient is currently afebrile, hemodynamically stable and maintaining appropriate oxygen saturations on nasal cannula supplemental O2. No overnight issues were identified by the nursing staff. The patient remains on cefepime and vancomycin. The patient is currently documented to be overall net -2.1 L for the hospital admission. Objective: The patient's most recent lab work, culture data and imaging studies have all been personally reviewed. Surface echocardiogram from November 2018 revealed normal LV size with an ejection fraction of 55%. Pulmonary artery systolic pressure was estimated to be 25 to 30 mmHg. Coronavirus testing was positive on January 01. Sputum and blood cultures have shown no growth to date. General: Alert, Cooperative, No apparent distress HEENT: Atraumatic, PERRLA, Normocephalic Oral: Moist Mucosa Neck: Supple, No Nodes, Trachea Midline Lungs: No rhonchi, No wheeze, Diminished, Rales Cardiovascular: Regular Rhythm, Normal S1, Normal S2, Tachycardic Abdomen: Bowel Sounds Present, Soft, Non Tender Extremities: No clubbing, No cyanosis, No edema Skin: - - No significant change from previous Musculoskeletal: No Tenderness to Palpation of Joints or Extremities Lymphatic: No Cervical, Supraclavicular, or Inguinal Adenopathy Neurological: Cranial nerves II-XII grossly intact, Neuro grossly intact Psych/Mental Status: Normal Affect Vital Signs Temp Pulse Resp BP Pulse Ox 99.7 F H 96 25 H 162/86 H 96 01/29/20 06:03 01/29/20 06:03 01/29/20 06:03 01/29/20 06:03 01/29/20 06:03 Oxygen Flow Rate (L/min) 40 Oxygen Delivery Method Bi-pap Weight: 164 lb 14.492 oz Body Mass Index (BMI) 26.0 Intake and Output for Last 24 Hours 01/27/20 01/28/20 01/29/20 23:59 23:59 23:59 Intake Total 2920.28 / 2920.28 2649.74 / 2649.74 482.33 / 482.33 Output Total 4915 / 4915 3500 / 3500 450 / 450 Balance -1994.72 / -1993.72 -850.26 / -850.26 32.33 / 32.33 Labs (Last 48 Hours) 01/27/20 01/27/20 01/27/20 06:59 07:30 13:47 WBC RBC Hgb Hct MCV MCH MCHC RDW Std Deviation RDW Coeff of Genaro Plt Count MPV Immature Gran % (Auto) Neut % (Auto) Lymph % (Auto) [place] % (Auto) Eos % (Auto) Baso % (Auto) Absolute Neuts (auto) Absolute Lymphs (auto) Nucleated RBC % Diff Path Review Polychromasia APTT 44.7 H Sodium Potassium Chloride Carbon Dioxide Anion Gap BUN Creatinine Estim Creat Clear Calc Est GFR (MDRD) Af Amer Est GFR (MDRD) Non-Af BUN/Creatinine Ratio Glucose Calcium Tacrolimus POC Glucose 156 H 148 H 01/27/20 01/27/20 01/27/20 15:35 18:05 21:05 WBC RBC Hgb Hct MCV MCH MCHC RDW Std Deviation RDW Coeff of Genaro Plt Count MPV Immature Gran % (Auto) Neut % (Auto) Lymph % (Auto) [place] % (Auto) Eos % (Auto) Baso % (Auto) Absolute Neuts (auto) Absolute Lymphs (auto) Nucleated RBC % Diff Path Review Polychromasia APTT 80.3 H Sodium Potassium Chloride Carbon Dioxide Anion Gap BUN Creatinine Estim Creat Clear Calc Est GFR (MDRD) Af Amer Est GFR (MDRD) Non-Af BUN/Creatinine Ratio Glucose Calcium Tacrolimus POC Glucose 130 H 85 01/27/20 01/27/20 01/28/20 23:49 Unknown 05:02 WBC RBC Hgb Hct MCV MCH MCHC RDW Std Deviation RDW Coeff of Genaro Plt Count MPV Immature Gran % (Auto) Neut % (Auto) Lymph % (Auto) [place] % (Auto) Eos % (Auto) Baso % (Auto) Absolute Neuts (auto) Absolute Lymphs (auto) Nucleated RBC % Diff Path Review Polychromasia APTT 34.2 Sodium Potassium Chloride Carbon Dioxide Anion Gap BUN Creatinine Estim Creat Clear Calc Est GFR (MDRD) Af Amer Est GFR (MDRD) Non-Af BUN/Creatinine Ratio Glucose Calcium Tacrolimus Pending POC Glucose 76 01/28/20 01/28/20 01/28/20 05:15 05:20 05:20 WBC 32.5 H* RBC 3.88 L Hgb 10.9 L Hct 35.5 L MCV 91.5 MCH 28.1 MCHC 30.7 L RDW Std Deviation 45.6 H RDW Coeff of Genaro 13.9 Plt Count 310 MPV 11.4 Immature Gran % (Auto) 1.700 H Neut % (Auto) 94.5 H Lymph % (Auto) 1.9 L [place] % (Auto) 1.7 Eos % (Auto) 0.0 Baso % (Auto) 0.2 Absolute Neuts (auto) 30.7 H Absolute Lymphs (auto) 0.61 L Nucleated RBC % 0.2 Diff Path Review Reviewed Polychromasia 1+ APTT 113.4 H* Sodium Potassium Chloride Carbon Dioxide Anion Gap BUN Creatinine Estim Creat Clear Calc Est GFR (MDRD) Af Amer Est GFR (MDRD) Non-Af BUN/Creatinine Ratio Glucose Calcium Tacrolimus POC Glucose 74 01/28/20 01/28/20 01/28/20 05:20 11:26 18:18 WBC RBC Hgb Hct MCV MCH MCHC RDW Std Deviation RDW Coeff of Genaro Plt Count MPV Immature Gran % (Auto) Neut % (Auto) Lymph % (Auto) [place] % (Auto) Eos % (Auto) Baso % (Auto) Absolute Neuts (auto) Absolute Lymphs (auto) Nucleated RBC % Diff Path Review Polychromasia APTT Sodium 145 Potassium 4.6 Chloride 112 H Carbon Dioxide 26.0 Anion Gap 7 BUN 53 H Creatinine 1.49 H Estim Creat Clear Calc 54.83 Est GFR (MDRD) Af Amer 63 Est GFR (MDRD) Non-Af 52 L BUN/Creatinine Ratio 35.6 H Glucose 82 Calcium 9.1 Tacrolimus POC Glucose 136 H 211 H 01/28/20 01/29/20 23:02 04:59 WBC RBC Hgb Hct MCV MCH MCHC RDW Std Deviation RDW Coeff of Genaro Plt Count MPV Immature Gran % (Auto) Neut % (Auto) Lymph % (Auto) [place] % (Auto) Eos % (Auto) Baso % (Auto) Absolute Neuts (auto) Absolute Lymphs (auto) Nucleated RBC % Diff Path Review Polychromasia APTT Sodium Potassium Chloride Carbon Dioxide Anion Gap BUN Creatinine Estim Creat Clear Calc Est GFR (MDRD) Af Amer Est GFR (MDRD) Non-Af BUN/Creatinine Ratio Glucose Calcium Tacrolimus POC Glucose 102 113 H Microbiology 01/26/20 12:30 Blood Culture (Wb) - Right Forearm Blood Culture - Preliminary No growth in 48 hours. 01/26/20 13:12 Sputum, Tracheal Aspirate Gram Stain - Final 01/26/20 13:12 Sputum, Tracheal Aspirate Respiratory Culture - Preliminary Presumptive C albicans 01/26/20 12:30 Blood Culture (Wb) - Anticubital Right Blood Culture - Preliminary Coag Negative Staph Clinical Impression(s) from Imaging Studies Chest X-Ray 01/18/20 17:00 IMPRESSION: 1. Extensive multilobar airspace disease suggesting pneumonia, including viral causes. Electronically Signed: Tyrone Borrero MD ([place]) at 17:22 EST , Service support , Chest X-Ray 01/18/20 20:40 KUB X-Ray 01/23/20 00:01 IMPRESSION: 1. Appropriate positioning of supportive devices 2. Normal bowel gas pattern Electronically Signed: Jonathan Aguilar MD at 1:57 EST Tel , Service support , Chest X-Ray 01/26/20 12:09 IMPRESSION: Extensive bilateral airspace opacities increase in the right lung when compared to prior study. at 2329 Reported and signed by: Macrina Herrmann DO Electronically Signed: Macrina Herrmann DO at 23:28 EST Tel , Service support , Chest X-Ray 01/28/20 08:50 IMPRESSION: Minimal improvement in the diffuse bilateral airspace disease. The endotracheal tube and orogastric tube have been removed. Electronically Signed: Richard Pérez, at 9:30 EST , Service support , Medical Necessity - Tobacco Use Smoking Status: Former smoker Tobacco Use: Non-smoker Assessment/Plan All Active Problems (Last Updated 09/02/18 @ 13:55 by Katheryn Mosqueda) TUCKER (acute kidney injury) (Acute) a fib with rvr (Acute) COVID-19 virus infection (Acute) Acute respiratory failure with hypoxia (Acute) RECOMMENDATIONS: 1. Continue rate/rhythm control strategy per cardiology recommendations. 2. Continue attempts at gentle diuresis as tolerated by hemodynamics and renal function. 3. Monitor tacrolimus level closely given potential interaction with amiodarone. 4. Continue to wean supplemental O2 to maintain oxygen saturations at or above 90%. 5. Continue therapeutic Lovenox. 6. Dietary advancement per speech therapy recommendations. IMPRESSIONS: 1. Acute hypoxemic respiratory failure secondary to COVID-19 pneumonia Continue current supportive measures. The patient was able to be successfully extubated on January 26. Respiratory status appears to be slowly improving. Continue rate/rhythm control strategy per cardiology recommendations. Continue to attempt gentle diuresis as tolerated by hemodynamics and renal function. Continue therapeutic Lovenox. Dietary advancement per speech therapy recommendations. 2. Acute on chronic kidney disease status post renal transplantation Improving. Defer ongoing hemodialysis need to nephrology. Defer tacrolimus management per nephrology recommendations. 3. Paroxysmal atrial fibrillation with RVR The patient's rate/rhythm has been difficult to control. Cardiology is currently following to assist with management. We will plan to continue current rate/rhythm control strategy. 4. Hypertension/hyperlipidemia/elevated troponin Complicates care, management, recovery and prognosis. Continue to hold antihypertensives for now. This note was generated with [employer] dictation software. It may contain incorrect words, spelling, and punctuation that were not noted in checking the note before signing. Inpatient E&M: [id number] [facility] L3
[2020-01-29 06:47] LABS: Absolute Lymphocyte Count 0.82 X10^3/uL (0.83-4.51); Absolute Neutrophil Count 19.8 X10^3/uL (2.0-7.7); Basophil# 0.03 X10^3/uL; Basophil% 0.1 % (0-1); Eosinophil# 0.25 X10^3/uL; Eosinophils% 1.2 % (0-5); Hematocrit 32.1 % (40-54); Hemoglobin 9.8 g/dL (13.0-16.5); Lymphocyte # 0.82 X10^3/ul (4.0); Lymphocyte % 3.8 % (19-41); Mean Corp Hgb Conc 30.5 g/dL (32-36); Mean Corpuscular Hgb 28.3 pg (27.0-32.0); Mean Corpuscular Volume 92.8 fL (80-94); Mean Platelet Vol. 11.2 fl (6.2-12.0); Monocyte% 2.3 % (0-10); NRBC Flagged by Analyzer 0.2 % (0-5); Neutrophil # 19.84 X10^3/uL (2.7-7.7); Neutrophil % 91.5 % (47-70); Platelet Count 311 K/mm3 (150-450); RBC Distribution Width CV 13.8 % (11.6-14.6); Red Blood Count 3.46 M/mm3 (4.6-6.2); White Blood Count 21.7 K/mm3 (4.4-11.0)
[2020-01-29 06:56] LABS: Anion Gap 8 (5-15); BUN 41 mg/dL (7-18); BUN/Creat Ratio 28.7 RATIO (10-20); Calcium,Total 8.5 mg/dL (8.5-10.1); Chloride 105 mmol/L (98-107); Creatinine, Serum 1.43 mg/dL (0.70-1.30); EST Glomerular Filtration Rate 55 mL/min (>60); Est Glom Filt Rate - Afr Amer 66 mL/min (>60); Estimated Creatinine Clearance 57.13 ml/min; Glucose 134 mg/dL (74-106); Sodium Level 140 mmol/L (136-145)
[2020-01-29] MEDS: predniSONE 5 MG Tablet 7.5 MG PO (09:40)
[2020-01-29] MEDS: Metoprolol Tartrate 50 MG Tablet PO (09:40)
[2020-01-29] MEDS: Enoxaparin 80 MG/0.8 ML Syringe 70 MG SC ×2 (09:41→20:54)
[2020-01-29] MEDS: Ensure Clear 120 ML Liquid PO ×3 (09:42→17:08)
[2020-01-29] MEDS: Aspirin 81 MG TAB.CHEW GT (09:42)
[2020-01-29] MEDS: Tacrolimus 0.5 MG Capsule GT ×2 (09:45→20:55)
--- NOTE | 2020-01-29 09:45 | PCM.PN.CARD ---
Subjectve: The patient appears to be resting comfortably at this time. He has not required repeat intubation as of this time. Objective: Vital Signs Temp Pulse Resp BP Pulse Ox 100.0 F H 103 H 25 H 165/89 H 92 01/29/20 09:28 01/29/20 09:28 01/29/20 09:28 01/29/20 09:28 01/29/20 09:28 Oxygen Flow Rate (L/min) 9 Oxygen Delivery Method Nasal Cannula Weight: 164 lb 14.492 oz Body Mass Index (BMI) 26.0 Intake and Output for Last 24 Hours 01/27/20 01/28/20 01/29/20 23:59 23:59 23:59 Intake Total 2920.28 / 2920.28 2649.74 / 2649.74 550.66 / 550.66 Output Total 4915 / 4915 3500 / 3500 700 / 700 Balance -1994.72 / -1994.72 -850.26 / -850.26 -149.34 / -149.34 Examination: Per internal medicine and pulmonology/critical care staff 01/29/20 04:15: WBC 21.7 H, RBC 3.46 L, Hgb 9.8 L, Hct 32.1 L, MCV 92.8, MCH 28.3, MCHC 30.5 L, Plt Count 311, MPV 11.2, Immature Gran % (Auto) 1.100 H, Neut % (Auto) 91.5 H, Lymph % (Auto) 3.8 L, [place] % (Auto) 2.3, Eos % (Auto) 1.2, Baso % (Auto) 0.1, Absolute Neuts (auto) 19.8 H, Nucleated RBC % 0.2 01/29/20 04:15: Sodium 140, Potassium 4.0, Chloride 105, Carbon Dioxide 27.0, Anion Gap 8, BUN 41 H, Creatinine 1.43 H, Est GFR (MDRD) Af Amer 66, Est GFR (MDRD) Non-Af 55 L, BUN/Creatinine Ratio 28.7 H, Glucose 134 H, Calcium 8.5 Rhythm: Sinus rhythm/sinus tachycardia Medical Necessity - Tobacco Use Smoking Status: Former smoker Tobacco Use: Non-smoker Assessment/Plan 1. Atrial fibrillation with RVR The patient has had atrial fibrillation with RVR. He has had no history of this in the past. This may be related to his underlying COVID-19 status superimposed upon his history of hypertension, etc. He has received multiple rate limiting medications including beta-blockers, IV calcium channel antagonist, IV digitalis, as well as antiarrhythmic therapy with IV amiodarone. He is on anticoagulant therapy. At his evaluation earlier this day he appeared to be in sinus rhythm at the time. At the moment he is going to continue medical therapy as he tolerates. This will include an attempt at increasing his beta-aretha dose, weaning his IV diltiazem off, and changing his IV amiodarone to oral amiodarone. His case been previously discussed with the pharmacy team. Their assistance was requested with respect to monitoring his medication, dose levels, etc. with respect to interaction with his immunosuppressive agents. 2. Status post renal transplant The patient is status post renal transplant. His renal function appears to be stable at this time. Depending upon his cardiovascular course and his needs for cardiovascular medical therapy consideration may have to be given with input from pharmacy, etc., and how to adjust medications. 3. Hyperlipidemia He can continue lipid-lowering therapy as deemed appropriate. 4. Hypertension His blood pressure is being followed. Hopefully his medicines can be adjusted to avoid significant hypotension and the need for repeat IV vasopressor support. 5. COVID-19 He is COVID-19 positive. Chest x-ray was reviewed with Dr. Hazel. He has significant bilateral infiltrates. He is continuing medical therapy per infectious disease and pulmonology. Depending upon his respiratory status he may or may not require repeat intubation. Comment: The patient's case was discussed and reviewed with Dr. Hazel of the [facility] ICU staff.
[2020-01-29] MEDS: Metoprolol Tartrate 100 MG Tablet PO ×2 (09:52→20:55)
--- NOTE | 2020-01-29 10:38 | PCM.PN.ID ---
Patient Problems: Active and Suspected Problems (Last Updated 09/02/18 @ 13:55 by Katheryn Mosqueda) TUCKER (acute kidney injury) (Acute) a fib with rvr (Acute) COVID-19 virus infection (Acute) Acute respiratory failure with hypoxia (Acute) Subjective: Feeling better, fever resolved overnight, breathing better - Physical Exam Vitals/I&O's: Vital Signs Temp Pulse Resp BP Pulse Ox 100.0 F H 105 H 27 H 165/89 H 93 01/29/20 09:54 01/29/20 09:54 01/29/20 09:54 01/29/20 09:54 01/29/20 09:54 Oxygen Flow Rate (L/min) 9 Oxygen Delivery Method Nasal Cannula Weight: 74.8 kg Body Mass Index (BMI) 26.0 Intake and Output for Last 24 Hours 01/27/20 01/28/20 01/29/20 23:59 23:59 23:59 Intake Total 2920.28 / 2920.28 2649.74 / 2649.74 1152.99 / 1152.99 Output Total 4915 / 4915 3500 / 3500 700 / 700 Balance -1994.72 / -1994.72 -850.26 / -850.26 452.99 / 452.99 General: Alert, Cooperative, No apparent distress Lungs: Diminished Cardiovascular: Tachycardic Abdomen: Soft, Non Tender, Non-Distended Skin: No rashes Microbiology Past 72 Hours 01/26/20 13:12 Sputum, Tracheal Aspirate Gram Stain - Final 01/26/20 13:12 Sputum, Tracheal Aspirate Respiratory Culture - Final Presumptive C albicans 01/26/20 12:30 Blood Culture (Wb) - Right Forearm Blood Culture - Preliminary No growth in 48 hours. 01/26/20 12:30 Blood Culture (Wb) - Anticubital Right Blood Culture - Preliminary Coag Negative Staph Laboratory Results 01/28/20 05:02: Tacrolimus Pending 01/28/20 05:20: Diff Path Review Reviewed 01/28/20 11:26: POC Glucose 136 H 01/28/20 18:18: POC Glucose 211 H 01/28/20 23:02: POC Glucose 102 01/29/20 04:15: WBC 21.7 H, RBC 3.46 L, Hgb 9.8 L, Hct 32.1 L, MCV 92.8, MCH 28.3, MCHC 30.5 L, RDW Std Deviation 46.0 H, RDW Coeff of Genaro 13.8, Plt Count 311, MPV 11.2, Immature Gran % (Auto) 1.100 H, Neut % (Auto) 91.5 H, Lymph % (Auto) 3.8 L, [place] % (Auto) 2.3, Eos % (Auto) 1.2, Baso % (Auto) 0.1, Absolute Neuts (auto) 19.8 H, Absolute Lymphs (auto) 0.82 L, Nucleated RBC % 0.2 01/29/20 04:15: Sodium 140, Potassium 4.0, Chloride 105, Carbon Dioxide 27.0, Anion Gap 8, BUN 41 H, Creatinine 1.43 H, Estim Creat Clear Calc 57.13, Est GFR (MDRD) Af Amer 66, Est GFR (MDRD) Non-Af 55 L, BUN/Creatinine Ratio 28.7 H, Glucose 134 H, Calcium 8.5 01/29/20 04:59: POC Glucose 113 H Current Medications Acetaminophen (Acetaminophen 650 Mg Suppository) 650 mg RECTAL Q6H PRN PRN PRN Reason: Pain Score 1-10/Temp > 100.7 F Last Admin: 01/27/20 21:31 Dose: 650 mg Documented by: Albuterol Sulfate (Albuterol 2.5 Mg/3 Ml Vial.Neb.) 2.5 mg INHALATION Q2H PRN PRN PRN Reason: WHEEZING Amiodarone HCl (Amiodarone 200 Mg Tablet) 200 mg PO TID [facility] Stop: 02/04/20 23:55 Amiodarone HCl (Amiodarone 200 Mg Tablet) 200 mg PO BID [facility] Stop: 02/18/20 22:01 Amiodarone HCl (Amiodarone 200 Mg Tablet) 200 mg PO DAILY [facility] Aspirin (Aspirin 81 Mg Tab.Chew) 81 mg GT DAILY [facility] Last Admin: 01/29/20 09:42 Dose: 81 mg Documented by: Enoxaparin Sodium (Enoxaparin 80 Mg/0.8 Ml Syringe) 70 mg SC Q12 [facility] Last Admin: 01/29/20 09:41 Dose: 70 mg Documented by: Sodium Chloride () 250 mls @ 15 mls/hr IV .[id number] PRN PRN Reason: Saline Flush Last Admin: 01/29/20 09:47 Dose: 15 mls/hr Documented by: Sodium Chloride () 250 mls @ 15 mls/hr IV .[id number] PRN PRN Reason: Additional IVPB Infusion Pantoprazole Sodium 40 mg/ (Sodium Chloride) 110 mls @ 330 mls/hr IV Q12 [facility] Last Infusion: 01/29/20 10:10 Dose: Infused Documented by: Diltiazem HCl 125 mg/ Dextrose 125 mls @ 5 mls/hr IV .Q25H [facility]; Protocol Last Admin: 01/29/20 10:05 Dose: 20 mg/hr, 20 mls/hr Documented by: Vancomycin IV Pharmacy to Dose (1 ea/ Sodium Chloride) 500 mls @ 250 mls/hr IV PRN PRN; Protocol PRN Reason: Rx to Dose Cefepime HCl 1 gm/ Sodium (Chloride) 50 mls @ 100 mls/hr IV Q8 [facility] Last Infusion: 01/29/20 05:37 Dose: Infused Documented by: Vancomycin HCl 750 mg/ Sodium (Chloride) 265 mls @ 250 mls/hr IV Q12H [facility] Last Infusion: 01/29/20 03:55 Dose: Infused Documented by: Insulin Glargine (Insulin Glargine 100 Units/Ml Pen) 10 units SC BID [facility] Last Admin: 01/29/20 09:43 Dose: 10 u Documented by: Insulin Human Lispro (Insulin Lispro 100 Unit/Ml Insuln.Pen) 0 unit SC Q6 [facility]; Protocol Last Admin: 01/29/20 05:07 Dose: Not Given Documented by: Metoprolol Tartrate (Metoprolol Tartrate 100 Mg Tablet) 100 mg PO BID [facility] Last Admin: 01/29/20 09:52 Dose: 100 mg Documented by: Nutritional Formula (Lactose Free) (Ensure Clear 120 Ml Liquid) 120 ml PO TIDCM [facility] Last Admin: 01/29/20 09:42 Dose: 120 ml Documented by: Ondansetron HCl (Ondansetron 4 Mg/2 Ml Vial) 4 mg IV Q8H PRN PRN PRN Reason: NAUSEA/VOMITING Polyethylene Glycol (Polyethylene Glycol 3350 17 Gm Packet) 34 gm PO X1 PRN PRN Reason: Bowel Movement Prednisone (Prednisone 5 Mg Tablet) 7.5 mg PO DAILY [facility] Last Admin: 01/29/20 09:40 Dose: 7.5 mg Documented by: Senna/Docusate Sodium (Senna/Docusate Sodium 1 Tablet) 2 tablet PO BID [facility] Last Admin: 01/29/20 09:44 Dose: Not Given Documented by: Sodium Chloride (0.9% Saline Lock 10 Ml Syringe) 10 - 40 ml IV UD PRN PRN Reason: SALINE FLUSH Last Admin: 01/28/20 05:22 Dose: 10 ml Documented by: Tacrolimus (Tacrolimus 0.5 Mg Capsule) 0.5 mg GT BID [facility] Last Admin: 01/29/20 09:45 Dose: 0.5 mg Documented by: Medical Necessity - Tobacco Use Smoking Status: Former smoker Tobacco Use: Non-smoker Route of nutrition/ use of supplements: [] Nutritional Intake: [] IV Site: [] Fernando Catheter: [] - Assessment/Plan Antibiotics: [] Assessment/Plan: [] Active and Suspected Problems (Last Updated 09/02/18 @ 13:55 by Katheryn Mosqueda) COVID-19 virus infection (Acute) Acute respiratory failure with hypoxia (Acute) covid with hypoxia, resp failure, renal transplant - on therapeutic lovenox, dex, and completed 5 doses of remdesivir today 01/22. D-dimer was 4.2. O2 worse, off vent, ongoing issues with afib, continued fever, rising wbc; so on 01/27 repeated cxs and started vanc/cefepime. 1 of 2 bcx with staph epi. Sputum with some yeast. Now afebrile, feeling better, O2 improved. Will follow
--- NOTE | 2020-01-29 11:09 | PN_ITS ---
Patient Problems: Active and Suspected Problems (Last Updated 09/02/18 @ 13:55 by Katheryn Mosqueda) TUCKER (acute kidney injury) (Acute) a fib with rvr (Acute) COVID-19 virus infection (Acute) Acute respiratory failure with hypoxia (Acute) Reason for Visit: Follow-up for acute hypoxic respiratory failure secondary to COVID-19 pneumonia, A. fib with RVR, renal transplant Objective: Patient is in sinus rhythm heart rate in 90s. Blood pressure systolic 165. Patient is still on 9 L of oxygen pulse ox 93%. Patient was on BiPAP yesterday afternoon. Physical exam General: Lethargic, awake. Follows command. HEENT: Atraumatic, PERRLA, EOMI, Normocephalic Oral: No Gingival or Mucosal Lesions/ Ulcerations Neck: Supple, No JVD, Negative Carotid Bruits Lungs: Air entry diminished in bilateral lung bases. Bilateral expiratory rhonchi. On high oxygen, FiO2 Cardiovascular: Sinus rhythm with PVCs. Normal S1, Normal S2, No murmurs Abdomen: Bowel Sounds Present, Soft, Non Tender, Non-Distended : No renal angle tenderness. No suprapubic tenderness. Extremities: No edema, Capillary Refill Less than 3 Seconds Skin: No rashes, No breakdown Musculoskeletal: No Tenderness to Palpation of Joints or Extremities Neurological: Cranial nerves II-XII grossly intact, Deep Tendon Reflexes 2+/4 and Symmetrical, Neuro grossly intact Psych/Mental Status: Flat affect. Vitals/I&O's: Vital Signs Temp Pulse Resp BP Pulse Ox 100.0 F H 95 18 177/85 H 93 01/29/20 09:54 01/29/20 10:38 01/29/20 10:38 01/29/20 10:38 01/29/20 10:38 Oxygen Flow Rate (L/min) 9 Oxygen Delivery Method Nasal Cannula Weight: 164 lb 14.492 oz Body Mass Index (BMI) 26.0 Intake and Output for Last 24 Hours 01/27/20 01/28/20 01/29/20 23:59 23:59 23:59 Intake Total 2920.28 / 2920.28 2649.74 / 2649.74 1186.49 / 1186.49 Output Total 4915 / 4915 3500 / 3500 700 / 700 Balance -1993.72 / -1993.72 -850.26 / -850.26 486.49 / 486.49 Microbiology Past 72 Hours 01/26/20 13:12 Sputum, Tracheal Aspirate Gram Stain - Final 01/26/20 13:12 Sputum, Tracheal Aspirate Respiratory Culture - Final Presumptive C albicans 01/26/20 12:30 Blood Culture (Wb) - Right Forearm Blood Culture - Preliminary No growth in 48 hours. 01/26/20 12:30 Blood Culture (Wb) - Anticubital Right Blood Culture - Preliminary Coag Negative Staph Laboratory Results 01/28/20 05:02: Tacrolimus Pending 01/28/20 05:20: Diff Path Review Reviewed 01/28/20 11:26: POC Glucose 136 H 01/28/20 18:18: POC Glucose 211 H 01/28/20 23:02: POC Glucose 102 01/29/20 04:15: WBC 21.7 H, RBC 3.46 L, Hgb 9.8 L, Hct 32.1 L, MCV 92.8, MCH 28.3, MCHC 30.5 L, RDW Std Deviation 46.0 H, RDW Coeff of Genaro 13.8, Plt Count 311, MPV 11.2, Immature Gran % (Auto) 1.100 H, Neut % (Auto) 91.5 H, Lymph % (Auto) 3.8 L, [place] % (Auto) 2.3, Eos % (Auto) 1.2, Baso % (Auto) 0.1, Absolute Neuts (auto) 19.8 H, Absolute Lymphs (auto) 0.82 L, Nucleated RBC % 0.2 01/29/20 04:15: Sodium 140, Potassium 4.0, Chloride 105, Carbon Dioxide 27.0, Anion Gap 8, BUN 41 H, Creatinine 1.43 H, Estim Creat Clear Calc 57.13, Est GFR (MDRD) Af Amer 66, Est GFR (MDRD) Non-Af 55 L, BUN/Creatinine Ratio 28.7 H, Glucose 134 H, Calcium 8.5 01/29/20 04:59: POC Glucose 113 H Current Medications Acetaminophen (Acetaminophen 650 Mg Suppository) 650 mg RECTAL Q6H PRN PRN PRN Reason: Pain Score 1-10/Temp > 100.7 F Last Admin: 01/27/20 21:31 Dose: 650 mg Documented by: Albuterol Sulfate (Albuterol 2.5 Mg/3 Ml Vial.Neb.) 2.5 mg INHALATION Q2H PRN PRN PRN Reason: WHEEZING Amiodarone HCl (Amiodarone 200 Mg Tablet) 200 mg PO TID [facility] Stop: 02/04/20 23:55 Amiodarone HCl (Amiodarone 200 Mg Tablet) 200 mg PO BID [facility] Stop: 02/18/20 22:01 Amiodarone HCl (Amiodarone 200 Mg Tablet) 200 mg PO DAILY [facility] Aspirin (Aspirin 81 Mg Tab.Chew) 81 mg GT DAILY [facility] Last Admin: 01/29/20 09:42 Dose: 81 mg Documented by: Enoxaparin Sodium (Enoxaparin 80 Mg/0.8 Ml Syringe) 70 mg SC Q12 [facility] Last Admin: 01/29/20 09:41 Dose: 70 mg Documented by: Furosemide (Furosemide 40 Mg/4 Ml Vial) 40 mg IV 1000,1700 [facility] Sodium Chloride () 250 mls @ 15 mls/hr IV .[id number] PRN PRN Reason: Saline Flush Last Admin: 01/29/20 09:47 Dose: 15 mls/hr Documented by: Sodium Chloride () 250 mls @ 15 mls/hr IV .[id number] PRN PRN Reason: Additional IVPB Infusion Diltiazem HCl 125 mg/ Dextrose 125 mls @ 5 mls/hr IV .Q25H [facility]; Protocol Last Admin: 01/29/20 10:05 Dose: 20 mg/hr, 20 mls/hr Documented by: Vancomycin IV Pharmacy to Dose (1 ea/ Sodium Chloride) 500 mls @ 250 mls/hr IV PRN PRN; Protocol PRN Reason: Rx to Dose Cefepime HCl 1 gm/ Sodium (Chloride) 50 mls @ 100 mls/hr IV Q8 [facility] Last Infusion: 01/29/20 05:37 Dose: Infused Documented by: Vancomycin HCl 750 mg/ Sodium (Chloride) 265 mls @ 250 mls/hr IV Q12H [facility] Last Infusion: 01/29/20 03:55 Dose: Infused Documented by: Insulin Glargine (Insulin Glargine 100 Units/Ml Pen) 10 units SC BID [facility] Last Admin: 01/29/20 09:43 Dose: 10 u Documented by: Insulin Human Lispro (Insulin Lispro 100 Unit/Ml Insuln.Pen) 0 unit SC Q6 [facility]; Protocol Last Admin: 01/29/20 05:07 Dose: Not Given Documented by: Metoprolol Tartrate (Metoprolol Tartrate 100 Mg Tablet) 100 mg PO BID [facility] Last Admin: 01/29/20 09:52 Dose: 100 mg Documented by: Nutritional Formula (Lactose Free) (Ensure Clear 120 Ml Liquid) 120 ml PO TIDCM [facility] Last Admin: 01/29/20 09:42 Dose: 120 ml Documented by: Ondansetron HCl (Ondansetron 4 Mg/2 Ml Vial) 4 mg IV Q8H PRN PRN PRN Reason: NAUSEA/VOMITING Pantoprazole Sodium (Pantoprazole Sodium 40 Mg Tablet) 40 mg PO BID [facility] Polyethylene Glycol (Polyethylene Glycol 3350 17 Gm Packet) 34 gm PO X1 PRN PRN Reason: Bowel Movement Prednisone (Prednisone 5 Mg Tablet) 7.5 mg PO DAILY [facility] Last Admin: 01/29/20 09:40 Dose: 7.5 mg Documented by: Senna/Docusate Sodium (Senna/Docusate Sodium 1 Tablet) 2 tablet PO BID [facility] Last Admin: 01/29/20 09:44 Dose: Not Given Documented by: Sodium Chloride (0.9% Saline Lock 10 Ml Syringe) 10 - 40 ml IV UD PRN PRN Reason: SALINE FLUSH Last Admin: 01/28/20 05:22 Dose: 10 ml Documented by: Tacrolimus (Tacrolimus 0.5 Mg Capsule) 0.5 mg GT BID [facility] Last Admin: 01/29/20 09:45 Dose: 0.5 mg Documented by: STROKE Vital Signs/Narrative: Vital Signs Temp Pulse Resp BP BP Pulse Ox 01/29/20 10:38 95 18 177/85 H 93 01/29/20 09:54 100.0 F H 105 H 27 H 165/89 H 93 01/29/20 09:52 100 165/89 H 01/29/20 09:40 113 H 165/89 H 01/29/20 09:28 100.0 F H 103 H 25 H 165/89 H 92 01/29/20 09:10 93 01/29/20 08:59 97 162/78 H 97 01/29/20 07:46 114 H 01/29/20 07:44 91 Medical Necessity - Tobacco Use Smoking Status: Former smoker Tobacco Use: Non-smoker Assessment/Plan All Active Problems (Last Updated 09/02/18 @ 13:55 by Katheryn Mosqueda) TUCKER (acute kidney injury) (Acute) a fib with rvr (Acute) COVID-19 virus infection (Acute) Acute respiratory failure with hypoxia (Acute) This is a 54 years old male patient presented to the emergency room because of shortness of breath, found to have COVID-19 pneumonia and his pulse ox dropped while patient was in the ED, needed to be intubated and started on mechanical ventilation. After admission, he developed TUCKER on CKD stage III requiring hemodialysis as well as new onset A. fib/flutter with RVR. #1 Acute hypoxic respiratory failure secondary to acute bilateral COVID-19 pneumonia: Patient has high D-dimer 4.26 and is on IV heparin drip. Patient completed 5 days of remdesivir. On IV Decadron. Chest x-ray showed extensive multilobar consolidation suggesting pneumonia. Patient was on mechanical ventilator which was extubated on 01/26 and currently on 40% FiO2 AIR VO. Gram stain of tracheal aspirate shows rare gram-positive cocci in clusters. Previous respiratory culture reported very rare mixed normal respiratory chevy. On IV cefepime Comanagement by sports management professor and ID. 01/27: A. fib with RVR, difficult to control heart rate: Dr. Uribe was consulted and saw the patient yesterday. Currently on amiodarone and diltiazem drip. Metoprolol 50 mg p.o. twice daily. Patient also had total digoxin 750 mcg IV yesterday. On IV drip Heparin 01/28: Currently in sinus rhythm. Cardiology follow-up appreciated. Amiodarone drip is transition to oral. Cardizem drip is gradually weaned off and metoprolol dose increased 200 mg p.o. twice daily. On vancomycin and cefepime. Blood culture coagulase negative staph. Completed 5 days of remdesivir. On therapeutic Lovenox. Leukocytosis. Patient is on prednisone for history of renal transplant. 2. Abnormal cardiac enzymes: Likely due to demand ischemia. EKG without acute segment changes. 3. Acute kidney injury on top of stage III chronic kidney disease: In the setting of history of renal transplant. Status post hemodialysis x2. Seen by intramural director. No need for dialysis today. As per transplant intramural director, tacrolimus resumed at lower dose 0.5 mg twice daily. Diuretic as needed. K4.6. BUN/creatinine 65/1.36, improving trend. 01/27: Serum creatinine 1.49, estimated creatinine clearance about 50 mils per minute. Serum creatinine is improving. Hold for dialysis as per intramural director. Tacrolimus level tomorrow a.m as patient is on amiodarone which is Dr. Interaction with tacrolimus. 01/28: BUN/creatinine stable. Electrolytes in normal limit. Good urine output 3500 mL on 01/27. Negative fluid balance 1.6 L. On Lasix. #5 new onset atrial flutter/fibrillation: Currently sinus rhythm. Heart rate in 90s with intermittent 117/min today, he went back into A. fib with RVR, receiving IV amiodarone bolus. Now, he is back in sinus rhythm, blood pressure is borderline. He is also on metoprolol. On IV heparin drip for anticoagulation. #6 hypertension: Currently blood pressure borderline but stable.. Antihypertensive medications held. #7 hyperlipidemia: Statins held. #8 DVT prophylaxis: Remained on IV heparin drip. Clinical Impression(s) from Imaging Studies Chest X-Ray 01/18/20 17:00 IMPRESSION: 1. Extensive multilobar airspace disease suggesting pneumonia, including viral causes. Chest X-Ray 01/26/20 12:09 IMPRESSION: Extensive bilateral airspace opacities increase in the right lung when compared to prior study. Microbiology Past 72 Hours 01/26/20 13:12 Sputum, Tracheal Aspirate Gram Stain - Final 01/26/20 13:12 Sputum, Tracheal Aspirate Respiratory Culture - Final Presumptive C albicans 01/26/20 12:30 Blood Culture (Wb) - Right Forearm Blood Culture - Preliminary No growth in 48 hours. 01/26/20 12:30 Blood Culture (Wb) - Anticubital Right Blood Culture - Preliminary Coag Negative Staph Laboratory Results 01/28/20 05:02: Tacrolimus Pending 01/28/20 05:20: Diff Path Review Reviewed 01/28/20 11:26: POC Glucose 136 H 01/28/20 18:18: POC Glucose 211 H 01/28/20 23:02: POC Glucose 102 01/29/20 04:15: WBC 21.7 H, RBC 3.46 L, Hgb 9.8 L, Hct 32.1 L, MCV 92.8, MCH 28.3, MCHC 30.5 L, RDW Std Deviation 46.0 H, RDW Coeff of Genaro 13.8, Plt Count 311, MPV 11.2, Immature Gran % (Auto) 1.100 H, Neut % (Auto) 91.5 H, Lymph % (Auto) 3.8 L, [place] % (Auto) 2.3, Eos % (Auto) 1.2, Baso % (Auto) 0.1, Absolute Neuts (auto) 19.8 H, Absolute Lymphs (auto) 0.82 L, Nucleated RBC % 0.2 01/29/20 04:15: Sodium 140, Potassium 4.0, Chloride 105, Carbon Dioxide 27.0, Anion Gap 8, BUN 41 H, Creatinine 1.43 H, Estim Creat Clear Calc 57.13, Est GFR (MDRD) Af Amer 66, Est GFR (MDRD) Non-Af 55 L, BUN/Creatinine Ratio 28.7 H, Glucose 134 H, Calcium 8.5 01/29/20 04:59: POC Glucose 113 H Inpatient E&M: 79677 Subs Hosp L3
--- NOTE | 2020-01-29 11:32 | PCM.PN.REN ---
Patient Problems: Active and Suspected Problems (Last Updated 09/02/18 @ 13:55 by Katheryn Mosqueda) TUCKER (acute kidney injury) (Acute) a fib with rvr (Acute) COVID-19 virus infection (Acute) Acute respiratory failure with hypoxia (Acute) Subjective: no c/o no cp no sob Objective: Physical examination was deferred to preserve PPE and prevent further transmission of COVID-19. - Physical Exam Vitals/I&O's: Vital Signs Temp Pulse Resp BP Pulse Ox 100.0 F H 95 18 177/85 H 93 01/29/20 09:54 01/29/20 10:38 01/29/20 10:38 01/29/20 10:38 01/29/20 10:38 Oxygen Flow Rate (L/min) 9 Oxygen Delivery Method Nasal Cannula Weight: 74.8 kg Body Mass Index (BMI) 26.0 Intake and Output for Last 24 Hours 01/27/20 01/28/20 01/29/20 23:59 23:59 23:59 Intake Total 2920.28 / 2920.28 2649.74 / 2649.74 1186.49 / 1186.49 Output Total 4915 / 4915 3500 / 3500 700 / 700 Balance -1994.72 / -1994.72 -850.26 / -850.26 486.49 / 486.49 Microbiology Past 72 Hours 01/26/20 13:12 Sputum, Tracheal Aspirate Gram Stain - Final 01/26/20 13:12 Sputum, Tracheal Aspirate Respiratory Culture - Final Presumptive C albicans 01/26/20 12:30 Blood Culture (Wb) - Right Forearm Blood Culture - Preliminary No growth in 48 hours. 01/26/20 12:30 Blood Culture (Wb) - Anticubital Right Blood Culture - Preliminary Coag Negative Staph Laboratory Results 01/28/20 05:20: Diff Path Review Reviewed 01/28/20 11:26: POC Glucose 136 H 01/28/20 18:18: POC Glucose 211 H 01/28/20 23:02: POC Glucose 102 01/29/20 04:15: WBC 21.7 H, RBC 3.46 L, Hgb 9.8 L, Hct 32.1 L, MCV 92.8, MCH 28.3, MCHC 30.5 L, RDW Std Deviation 46.0 H, RDW Coeff of Genaro 13.8, Plt Count 311, MPV 11.2, Immature Gran % (Auto) 1.100 H, Neut % (Auto) 91.5 H, Lymph % (Auto) 3.8 L, [place] % (Auto) 2.3, Eos % (Auto) 1.2, Baso % (Auto) 0.1, Absolute Neuts (auto) 19.8 H, Absolute Lymphs (auto) 0.82 L, Nucleated RBC % 0.2 01/29/20 04:15: Sodium 140, Potassium 4.0, Chloride 105, Carbon Dioxide 27.0, Anion Gap 8, BUN 41 H, Creatinine 1.43 H, Estim Creat Clear Calc 57.13, Est GFR (MDRD) Af Amer 66, Est GFR (MDRD) Non-Af 55 L, BUN/Creatinine Ratio 28.7 H, Glucose 134 H, Calcium 8.5 01/29/20 04:59: POC Glucose 113 H Current Medications Acetaminophen (Acetaminophen 650 Mg Suppository) 650 mg RECTAL Q6H PRN PRN PRN Reason: Pain Score 1-10/Temp > 100.7 F Last Admin: 01/27/20 21:31 Dose: 650 mg Documented by: Albuterol Sulfate (Albuterol 2.5 Mg/3 Ml Vial.Neb.) 2.5 mg INHALATION Q2H PRN PRN PRN Reason: WHEEZING Amiodarone HCl (Amiodarone 200 Mg Tablet) 200 mg PO TID [facility] Stop: 02/04/20 23:55 Amiodarone HCl (Amiodarone 200 Mg Tablet) 200 mg PO BID [facility] Stop: 02/18/20 22:01 Amiodarone HCl (Amiodarone 200 Mg Tablet) 200 mg PO DAILY [facility] Aspirin (Aspirin 81 Mg Tab.Chew) 81 mg GT DAILY [facility] Last Admin: 01/29/20 09:42 Dose: 81 mg Documented by: Enoxaparin Sodium (Enoxaparin 80 Mg/0.8 Ml Syringe) 70 mg SC Q12 [facility] Last Admin: 01/29/20 09:41 Dose: 70 mg Documented by: Furosemide (Furosemide 40 Mg/4 Ml Vial) 40 mg IV 1000,1700 [facility] Sodium Chloride () 250 mls @ 15 mls/hr IV .[id number] PRN PRN Reason: Saline Flush Last Admin: 01/29/20 09:47 Dose: 15 mls/hr Documented by: Sodium Chloride () 250 mls @ 15 mls/hr IV .[id number] PRN PRN Reason: Additional IVPB Infusion Diltiazem HCl 125 mg/ Dextrose 125 mls @ 5 mls/hr IV .Q25H [facility]; Protocol Last Admin: 01/29/20 10:05 Dose: 20 mg/hr, 20 mls/hr Documented by: Vancomycin IV Pharmacy to Dose (1 ea/ Sodium Chloride) 500 mls @ 250 mls/hr IV PRN PRN; Protocol PRN Reason: Rx to Dose Cefepime HCl 1 gm/ Sodium (Chloride) 50 mls @ 100 mls/hr IV Q8 [facility] Last Infusion: 01/29/20 05:37 Dose: Infused Documented by: Vancomycin HCl 750 mg/ Sodium (Chloride) 265 mls @ 250 mls/hr IV Q12H [facility] Last Infusion: 01/29/20 03:55 Dose: Infused Documented by: Insulin Glargine (Insulin Glargine 100 Units/Ml Pen) 10 units SC BID [facility] Last Admin: 01/29/20 09:43 Dose: 10 u Documented by: Insulin Human Lispro (Insulin Lispro 100 Unit/Ml Insuln.Pen) 0 unit SC Q6 [facility]; Protocol Last Admin: 01/29/20 05:07 Dose: Not Given Documented by: Metoprolol Tartrate (Metoprolol Tartrate 100 Mg Tablet) 100 mg PO BID [facility] Last Admin: 01/29/20 09:52 Dose: 100 mg Documented by: Nutritional Formula (Lactose Free) (Ensure Clear 120 Ml Liquid) 120 ml PO TIDCM [facility] Last Admin: 01/29/20 09:42 Dose: 120 ml Documented by: Ondansetron HCl (Ondansetron 4 Mg/2 Ml Vial) 4 mg IV Q8H PRN PRN PRN Reason: NAUSEA/VOMITING Pantoprazole Sodium (Pantoprazole Sodium 40 Mg Tablet) 40 mg PO BID [facility] Polyethylene Glycol (Polyethylene Glycol 3350 17 Gm Packet) 34 gm PO X1 PRN PRN Reason: Bowel Movement Prednisone (Prednisone 5 Mg Tablet) 7.5 mg PO DAILY [facility] Last Admin: 01/29/20 09:40 Dose: 7.5 mg Documented by: Senna/Docusate Sodium (Senna/Docusate Sodium 1 Tablet) 2 tablet PO BID [facility] Last Admin: 01/29/20 09:44 Dose: Not Given Documented by: Sodium Chloride (0.9% Saline Lock 10 Ml Syringe) 10 - 40 ml IV UD PRN PRN Reason: SALINE FLUSH Last Admin: 01/28/20 05:22 Dose: 10 ml Documented by: Tacrolimus (Tacrolimus 0.5 Mg Capsule) 0.5 mg GT BID [facility] Last Admin: 01/29/20 09:45 Dose: 0.5 mg Documented by: Medical Necessity - Tobacco Use Smoking Status: Former smoker Tobacco Use: Non-smoker Assessment/Plan All Active Problems (Last Updated 09/02/18 @ 13:55 by Katheryn Mosqueda) TUCKER (acute kidney injury) (Acute) a fib with rvr (Acute) COVID-19 virus infection (Acute) Acute respiratory failure with hypoxia (Acute) ESRD s/p renal transplant TUCKER ATN with COVID-19 Hypernatremia resolved Hyperkalemia resolved COVID-19 Scr 1.43 stable avoid nephrotoxins Per transplant senior qa tester continue tacrolimus 0.5 mg p.o. twice daily His home dose of tacrolimus is 1 mg p.o. twice daily but for now we will just use the low-dose as above as instructed by transplant nephrology until trough level available Prograf level f/u before adjusting further the tacrolimus dose. Can use diuretics with daily bmp to avoid overdiuresis d/w transplant nephrology today On amiodarone po now and Cardizem for rate control .
[2020-01-29] MEDS: Amiodarone 200 MG Tablet PO ×2 (12:35→20:56)
[2020-01-29] MEDS: Insulin Lispro 100 UNIT/ML INSULN.PEN SC ×2 (12:36→17:09)
--- NOTE | 2020-01-29 12:48 | CASEMGMT ---
Social Work Phone call placed to pt parents and spoke with mother Joslyn. Joslyn stating that she calls to nurses several time a day and has updates on how pt is doing. Discussed with Joslyn plan at time of discharge. Pt lives in basement apartment at parents home. Pt asends flight of stairs for bathroom and for meals with parents. Pt was independent with care prior to illness. SW discuss with mother possible need for SNF at time of discharge as pt is weak and deconditioned from illness. Pt mother stating she was planning on pt coming home from hospital and did not think he would need SNF. SW expresses concerns that pt may need therapy and rehabilitation prior to returning home as it would be difficult for parents to provide needs. Pt mother states they will support whatever pt would want to do, come home or go to SNF. Phone call placed to pt room and pt did not answer. SW will continue to follow for discharge planning. CHELSY Posada
[2020-01-29 12:51] LABS: Bedside Glucose 188 mg/dL (70-110)
[2020-01-29] MEDS: Furosemide 40 MG/4 ML Vial IV (17:09)
[2020-01-29] MEDS: 0.9% Saline Lock 10 ML Syringe IV (17:26)
[2020-01-29 17:36] LABS: Bedside Glucose 160 mg/dL (70-110)
[2020-01-29] MEDS: Pantoprazole Sodium 40 MG Tablet PO (20:55)
[2020-01-29 23:35] LABS: Bedside Glucose 180 mg/dL (70-110)
[2020-01-30] VITALS (31 sets, daily range): BP systolic 119–188; BP diastolic 62–95; PULSE 84–102; RESP 12–33; TEMP 37.3–38; O2SAT 90–100
[2020-01-30 01:06] LABS: Bedside Glucose 88 mg/dL (70-110)
--- NOTE | 2020-01-30 05:53 | PCM.PN.INT ---
Subjective: The patient was seen and examined at the bedside this morning. Events from the last 24 hours have been reviewed. The patient is currently afebrile, hemodynamically stable and maintaining appropriate oxygen saturations on 13 L/min via nasal cannula. The patient is currently documented to be overall net -2.3 L for the hospital admission. The patient remains in normal sinus rhythm this morning. The patient remains on IV Lasix twice daily. The patient remains on cefepime and vancomycin. In addition, he remains on a Cardizem infusion as well. Objective: The patient's most recent lab work, culture data and imaging studies have all been personally reviewed. Surface echocardiogram from November 2018 revealed normal LV size with an ejection fraction of 55%. Pulmonary artery systolic pressure was estimated to be 25 to 30 mmHg. Coronavirus testing was positive on January 01. Sputum and blood cultures have shown no growth to date. General: Alert, Cooperative, No apparent distress HEENT: Atraumatic, Normocephalic Oral: No Gingival or Mucosal Lesions/ Ulcerations Neck: Supple, No Nodes, Trachea Midline Lungs: Diminished, Rhonchi Cardiovascular: Regular rate, Regular Rhythm Abdomen: Bowel Sounds Present, Soft, Non Tender Extremities: No clubbing, No cyanosis, No edema Skin: - - No significant change from previous Musculoskeletal: No Tenderness to Palpation of Joints or Extremities Lymphatic: No Cervical, Supraclavicular, or Inguinal Adenopathy Neurological: Cranial nerves II-XII grossly intact, Neuro grossly intact Psych/Mental Status: Normal Affect, Appropriate Vital Signs Temp Pulse Resp BP Pulse Ox 100 F H 88 26 H 126/83 H 95 01/29/20 21:00 01/29/20 23:00 01/29/20 23:00 01/29/20 23:00 01/29/20 23:00 Oxygen Flow Rate (L/min) 11 Oxygen Delivery Method Nasal Cannula Weight: 164 lb 14.492 oz Body Mass Index (BMI) 26.0 Intake and Output for Last 24 Hours 01/28/20 01/29/20 01/30/20 23:59 23:59 23:59 Intake Total 2649.74 / 2649.74 2616.49 / 2616.49 Output Total 3500 / 3500 2825 / 2825 Balance -850.26 / -850.26 -208.51 / -208.51 Labs (Last 48 Hours) 01/28/20 01/28/20 01/28/20 05:02 05:15 05:20 WBC RBC Hgb Hct MCV MCH MCHC RDW Std Deviation RDW Coeff of Genaro Plt Count MPV Immature Gran % (Auto) Neut % (Auto) Lymph % (Auto) [place] % (Auto) Eos % (Auto) Baso % (Auto) Absolute Neuts (auto) Absolute Lymphs (auto) Nucleated RBC % Diff Path Review Polychromasia APTT 113.4 H* Sodium Potassium Chloride Carbon Dioxide Anion Gap BUN Creatinine Estim Creat Clear Calc Est GFR (MDRD) Af Amer Est GFR (MDRD) Non-Af BUN/Creatinine Ratio Glucose Calcium Tacrolimus Pending POC Glucose 74 01/28/20 01/28/20 01/28/20 05:20 05:20 11:26 WBC 32.5 H* RBC 3.88 L Hgb 10.9 L Hct 35.5 L MCV 91.5 MCH 28.1 MCHC 30.7 L RDW Std Deviation 45.6 H RDW Coeff of Genaro 13.9 Plt Count 310 MPV 11.4 Immature Gran % (Auto) 1.700 H Neut % (Auto) 94.5 H Lymph % (Auto) 1.9 L [place] % (Auto) 1.7 Eos % (Auto) 0.0 Baso % (Auto) 0.2 Absolute Neuts (auto) 30.7 H Absolute Lymphs (auto) 0.61 L Nucleated RBC % 0.2 Diff Path Review Reviewed Polychromasia 1+ APTT Sodium 145 Potassium 4.6 Chloride 112 H Carbon Dioxide 26.0 Anion Gap 7 BUN 53 H Creatinine 1.49 H Estim Creat Clear Calc 54.83 Est GFR (MDRD) Af Amer 63 Est GFR (MDRD) Non-Af 52 L BUN/Creatinine Ratio 35.6 H Glucose 82 Calcium 9.1 Tacrolimus POC Glucose 136 H 01/28/20 01/28/20 01/29/20 18:18 23:02 04:15 WBC 21.7 H RBC 3.46 L Hgb 9.8 L Hct 32.1 L MCV 92.8 MCH 28.3 MCHC 30.5 L RDW Std Deviation 46.0 H RDW Coeff of Genaro 13.8 Plt Count 311 MPV 11.2 Immature Gran % (Auto) 1.100 H Neut % (Auto) 91.5 H Lymph % (Auto) 3.8 L [place] % (Auto) 2.3 Eos % (Auto) 1.2 Baso % (Auto) 0.1 Absolute Neuts (auto) 19.8 H Absolute Lymphs (auto) 0.82 L Nucleated RBC % 0.2 [address] Review Polychromasia APTT Sodium Potassium Chloride Carbon Dioxide Anion Gap BUN Creatinine Estim Creat Clear Calc Est GFR (MDRD) Af Amer Est GFR (MDRD) Non-Af BUN/Creatinine Ratio Glucose Calcium Tacrolimus POC Glucose 211 H 102 01/29/20 01/29/20 01/29/20 04:15 04:59 12:35 WBC RBC Hgb Hct MCV MCH MCHC RDW Std Deviation RDW Coeff of [place]aro Plt Count MPV Immature Gran % (Auto) Neut % (Auto) Lymph % (Auto) [place] % (Auto) Eos % (Auto) Baso % (Auto) Absolute Neuts (auto) Absolute Lymphs (auto) Nucleated RBC % Diff Path Review Polychromasia APTT Sodium 140 Potassium 4.0 Chloride 105 Carbon Dioxide 27.0 Anion Gap 8 BUN 41 H Creatinine 1.43 H Estim Creat Clear Calc 57.13 Est GFR (MDRD) Af Amer 66 Est GFR (MDRD) Non-Af 55 L BUN/Creatinine Ratio 28.7 H Glucose 134 H Calcium 8.5 Tacrolimus POC Glucose 113 H 188 H 01/29/20 01/29/20 01/30/20 17:08 20:53 00:50 WBC RBC Hgb Hct MCV MCH MCHC RDW Std Deviation RDW Coeff of Genaro Plt Count MPV Immature Gran % (Auto) Neut % (Auto) Lymph % (Auto) [place] % (Auto) Eos % (Auto) Baso % (Auto) Absolute Neuts (auto) Absolute Lymphs (auto) Nucleated RBC % Diff Path Review Polychromasia APTT Sodium Potassium Chloride Carbon Dioxide Anion Gap BUN Creatinine Estim Creat Clear Calc Est GFR (MDRD) Af Amer Est GFR (MDRD) Non-Af BUN/Creatinine Ratio Glucose Calcium Tacrolimus POC Glucose 160 H 180 H 88 Microbiology 01/26/20 13:12 Sputum, Tracheal Aspirate Gram Stain - Final 01/26/20 13:12 Sputum, Tracheal Aspirate Respiratory Culture - Final Presumptive C albicans 01/26/20 12:30 Blood Culture (Wb) - Right Forearm Blood Culture - Preliminary No growth in 48 hours. 01/26/20 12:30 Blood Culture (Wb) - Anticubital Right Blood Culture - Preliminary Coag Negative Staph Clinical Impression(s) from Imaging Studies Chest X-Ray 01/18/20 17:00 IMPRESSION: 1. Extensive multilobar airspace disease suggesting pneumonia, including viral causes. Electronically Signed: Tyrone Borrero MD ([place]) at 17:22 EST , Service support , Chest X-Ray 01/18/20 20:40 KUB X-Ray 01/23/20 00:01 IMPRESSION: 1. Appropriate positioning of supportive devices 2. Normal bowel gas pattern Electronically Signed: Jonathan Aguilar MD at 1:57 EST Tel , Service support , Chest X-Ray 01/26/20 12:09 IMPRESSION: Extensive bilateral airspace opacities increase in the right lung when compared to prior study. at 2329 Reported and signed by: Macrina Herrmann DO Electronically Signed: Macrina Herrmann DO at 23:28 EST Tel , Service support , Chest X-Ray 01/28/20 08:50 IMPRESSION: Minimal improvement in the diffuse bilateral airspace disease. The endotracheal tube and orogastric tube have been removed. Electronically Signed: Richard Pérez, at 9:30 EST , Service support , Medical Necessity - Tobacco Use Smoking Status: Former smoker Tobacco Use: Non-smoker Assessment/Plan All Active Problems (Last Updated 09/02/18 @ 13:55 by Katheryn Mosqueda) TUCKER (acute kidney injury) (Acute) a fib with rvr (Acute) COVID-19 virus infection (Acute) Acute respiratory failure with hypoxia (Acute) RECOMMENDATIONS: 1. Continue rate/rhythm control strategy per cardiology recommendations. 2. Continue attempts at gentle diuresis as tolerated by hemodynamics and renal function. 3. Monitor tacrolimus level closely given potential interaction with amiodarone. 4. Continue to wean supplemental O2 to maintain oxygen saturations at or above 90%. 5. Continue therapeutic Lovenox. 6. Dietary advancement per speech therapy recommendations. IMPRESSIONS: 1. Acute hypoxemic respiratory failure secondary to COVID-19 pneumonia Continue current supportive measures. The patient was able to be successfully extubated on January 26. Respiratory status appears to be slowly improving. Continue rate/rhythm control strategy per cardiology recommendations. Continue to attempt gentle diuresis as tolerated by hemodynamics and renal function. Continue therapeutic Lovenox. Dietary advancement per speech therapy recommendations. 2. Acute on chronic kidney disease status post renal transplantation Improving. Defer ongoing hemodialysis need to nephrology. Defer tacrolimus management per nephrology recommendations. 3. Paroxysmal atrial fibrillation with RVR The patient's rate/rhythm has been difficult to control. Cardiology is currently following to assist with management. We will plan to continue current rate/rhythm control strategy. 4. Hypertension/hyperlipidemia/elevated troponin Complicates care, management, recovery and prognosis. Continue to hold antihypertensives for now. This note was generated with [employer] dictation software. It may contain incorrect words, spelling, and punctuation that were not noted in checking the note before signing. Inpatient E&M: 43361 [facility] L3
[2020-01-30] MEDS: Amiodarone 200 MG Tablet PO ×3 (06:35→21:42)
[2020-01-30 07:01] LABS: Bedside Glucose 95 mg/dL (70-110)
[2020-01-30 07:06] LABS: Absolute Lymphocyte Count 1.14 X10^3/uL (0.83-4.51); Absolute Neutrophil Count 17.7 X10^3/uL (2.0-7.7); Basophil# 0.03 X10^3/uL; Basophil% 0.2 % (0-1); Hematocrit 31.6 % (40-54); Hemoglobin 9.6 g/dL (13.0-16.5); Lymphocyte # 1.14 X10^3/ul (4.0); Lymphocyte % 5.8 % (19-41); Mean Corp Hgb Conc 30.4 g/dL (32-36); Mean Corpuscular Hgb 27.7 pg (27.0-32.0); Mean Corpuscular Volume 91.3 fL (80-94); Mean Platelet Vol. 10.1 fl (6.2-12.0); Monocyte# 0.27 X10^3/uL; Monocyte% 1.4 % (0-10); NRBC Flagged by Analyzer 0.2 % (0-5); Neutrophil # 17.72 X10^3/uL (2.7-7.7); POSITIVE MORPHOLOGY YES; Platelet Count 280 K/mm3 (150-450); RBC Distribution Width CV 13.8 % (11.6-14.6); RBC Distribution Width SD 45.1 fl (35.1-43.9); Red Blood Count 3.46 M/mm3 (4.6-6.2); White Blood Count 19.7 K/mm3 (4.4-11.0)
[2020-01-30 07:12] LABS: Differential Indicated SCAN CRITERIA MET
[2020-01-30 07:18] LABS: Anion Gap 7 (5-15); BUN 33 mg/dL (7-18); BUN/Creat Ratio 22.9 RATIO (10-20); Chloride 107 mmol/L (98-107); Creatinine, Serum 1.44 mg/dL (0.70-1.30); EST Glomerular Filtration Rate 54 mL/min (>60); Est Glom Filt Rate - Afr Amer 66 mL/min (>60); Estimated Creatinine Clearance 56.74 ml/min; Glucose 88 mg/dL (74-106); Potassium 3.7 mmol/L (3.5-5.1); Sodium Level 141 mmol/L (136-145)
[2020-01-30 07:20] LABS: Vancomycin, Trough Level 15.3 ug/mL (5.0-15.0)
--- NOTE | 2020-01-30 07:34 | PN_ITS ---
Patient Problems: Active and Suspected Problems (Last Updated 09/02/18 @ 13:55 by Katheryn Mosqueda) TUCKER (acute kidney injury) (Acute) a fib with rvr (Acute) COVID-19 virus infection (Acute) Acute respiratory failure with hypoxia (Acute) Reason for Visit: Follow-up for acute hypoxic respiratory failure secondary to COVID-19, A. fib with RVR, renal transplant. Objective: Patient on 12 to 13 L of oxygen. Tachypneic, respiratory rate 25/min. Blood pressure 188/85. Sinus rhythm. Physical exam General: Lethargic, awake. Follows command. HEENT: Atraumatic, PERRLA, EOMI, Normocephalic Oral: No Gingival or Mucosal Lesions/ Ulcerations Neck: Supple, No JVD, Negative Carotid Bruits Lungs: Air entry diminished in bilateral lung bases. Bilateral expiratory rhonchi. On high oxygen, FiO2 down to 30 L of oxygen Cardiovascular: Sinus rhythm with PVCs. Normal S1, Normal S2, No murmurs Abdomen: Bowel Sounds Present, Soft, Non Tender, Non-Distended : No renal angle tenderness. No suprapubic tenderness. Extremities: No edema, Capillary Refill Less than 3 Seconds Skin: No rashes, No breakdown Musculoskeletal: No Tenderness to Palpation of Joints or Extremities Neurological: Cranial nerves II-XII grossly intact, Deep Tendon Reflexes 2+/4 and Symmetrical, Neuro grossly intact Psych/Mental Status: Flat affect. Vitals/I&O's: Vital Signs Temp Pulse Resp BP Pulse Ox 100.4 F H 90 25 H 188/85 H 97 01/30/20 00:00 01/30/20 06:00 01/30/20 06:00 01/30/20 06:00 01/30/20 06:00 Oxygen Flow Rate (L/min) 13 Oxygen Delivery Method Nasal Cannula Weight: 164 lb 14.492 oz Body Mass Index (BMI) 26.0 Intake and Output for Last 24 Hours 01/28/20 01/29/20 01/30/20 23:59 23:59 23:59 Intake Total 2649.74 / 2649.74 2667.16 / 2677.16 70 / 70 Output Total 3500 / 3500 2825 / 2825 275 / 275 Balance -850.26 / -850.26 -157.84 / -147.84 -205 / -205 Microbiology Past 72 Hours 12/14/20 12:30 Blood Culture (Wb) - Right Forearm Blood Culture - Preliminary 01/26/20 13:12 Sputum, Tracheal Aspirate Gram Stain - Final 01/26/20 13:12 Sputum, Tracheal Aspirate Respiratory Culture - Final Presumptive C albicans 01/26/20 12:30 Blood Culture (Wb) - Anticubital Right Blood Culture - Preliminary Coag Negative Staph Laboratory Results 01/29/20 12:35: POC Glucose 188 H 01/29/20 17:08: POC Glucose 160 H 01/29/20 20:53: POC Glucose 180 H 01/30/20 00:50: POC Glucose 88 01/30/20 06:25: Vancomycin Trough 15.3 H 01/30/20 06:25: WBC 19.7 H, RBC 3.46 L, Hgb 9.6 L, Hct 31.6 L, MCV 91.3, MCH 27.7, MCHC 30.4 L, RDW Std Deviation 45.1 H, RDW Coeff of Genaro 13.8, Plt Count 280, MPV 10.1, Immature Gran % (Auto) 1.600 H, Neut % (Auto) 90.0 H, Lymph % (Auto) 5.8 L, [place] % (Auto) 1.4, Eos % (Auto) 1.0, Baso % (Auto) 0.2, Absolute Neuts (auto) 17.7 H, Absolute Lymphs (auto) 1.14, Nucleated RBC % 0.2 01/30/20 06:25: Sodium 141, Potassium 3.7, Chloride 107, Carbon Dioxide 27.0, Anion Gap 7, BUN 33 H, Creatinine 1.44 H, Estim Creat Clear Calc 56.74, Est GFR (MDRD) Af Amer 66, Est GFR (MDRD) Non-Af 54 L, BUN/Creatinine Ratio 22.9 H, Glucose 88, Calcium 9.0 01/30/20 06:34: POC Glucose 95 Current Medications Acetaminophen (Acetaminophen 650 Mg Suppository) 650 mg RECTAL Q6H PRN PRN PRN Reason: Pain Score 1-10/Temp > 100.7 F Last Admin: 01/27/20 21:31 Dose: 650 mg Documented by: Albuterol Sulfate (Albuterol 2.5 Mg/3 Ml Vial.Neb.) 2.5 mg INHALATION Q2H PRN PRN PRN Reason: WHEEZING Amiodarone HCl (Amiodarone 200 Mg Tablet) 200 mg PO TID [facility] Stop: 02/04/20 23:55 Last Admin: 01/30/20 06:35 Dose: 200 mg Documented by: Amiodarone HCl (Amiodarone 200 Mg Tablet) 200 mg PO BID [facility] Stop: 02/18/20 22:01 Amiodarone HCl (Amiodarone 200 Mg Tablet) 200 mg PO DAILY [facility] Aspirin (Aspirin 81 Mg Tab.Chew) 81 mg GT DAILY [facility] Last Admin: 01/29/20 09:42 Dose: 81 mg Documented by: Enoxaparin Sodium (Enoxaparin 80 Mg/0.8 Ml Syringe) 70 mg SC Q12 [facility] Last Admin: 01/29/20 20:54 Dose: 70 mg Documented by: Furosemide (Furosemide 40 Mg/4 Ml Vial) 40 mg IV 1000,1700 [facility] Last Admin: 01/29/20 17:09 Dose: 40 mg Documented by: Sodium Chloride () 250 mls @ 15 mls/hr IV .[id number] PRN PRN Reason: Saline Flush Last Admin: 01/29/20 09:47 Dose: 15 mls/hr Documented by: Sodium Chloride () 250 mls @ 15 mls/hr IV .[id number] PRN PRN Reason: Additional IVPB Infusion Diltiazem HCl 125 mg/ Dextrose 125 mls @ 5 mls/hr IV .Q25H [facility]; Protocol Last Titration: 01/30/20 06:00 Dose: 10 mg/hr, 10 mls/hr Documented by: Vancomycin IV Pharmacy to Dose (1 ea/ Sodium Chloride) 500 mls @ 250 mls/hr IV PRN PRN; Protocol PRN Reason: Rx to Dose Cefepime HCl 1 gm/ Sodium (Chloride) 50 mls @ 100 mls/hr IV Q8 [facility] Last Admin: 01/30/20 06:36 Dose: 100 mls/hr Documented by: Vancomycin HCl 750 mg/ Sodium (Chloride) 265 mls @ 250 mls/hr IV Q12H [facility] Last Infusion: 01/29/20 15:34 Dose: Infused Documented by: Insulin Glargine (Insulin Glargine 100 Units/Ml Pen) 10 units SC BID [facility] Last Admin: 01/29/20 20:57 Dose: 10 u Documented by: Insulin Human Lispro (Insulin Lispro 100 Unit/Ml Insuln.Pen) 0 unit SC Q6 [facility]; Protocol Last Admin: 01/30/20 06:37 Dose: Not Given Documented by: Metoprolol Tartrate (Metoprolol Tartrate 100 Mg Tablet) 100 mg PO BID [facility] Last Admin: 01/29/20 20:55 Dose: 100 mg Documented by: Nutritional Formula (Lactose Free) (Ensure Clear 120 Ml Liquid) 120 ml PO TIDCM [facility] Last Admin: 01/29/20 17:08 Dose: 120 ml Documented by: Ondansetron HCl (Ondansetron 4 Mg/2 Ml Vial) 4 mg IV Q8H PRN PRN PRN Reason: NAUSEA/VOMITING Pantoprazole Sodium (Pantoprazole Sodium 40 Mg Tablet) 40 mg PO BID [facility] Last Admin: 01/29/20 20:55 Dose: 40 mg Documented by: Polyethylene Glycol (Polyethylene Glycol 3350 17 Gm Packet) 34 gm PO X1 PRN PRN Reason: Bowel Movement Prednisone (Prednisone 5 Mg Tablet) 7.5 mg PO DAILY [facility] Last Admin: 01/29/20 09:40 Dose: 7.5 mg Documented by: Senna/Docusate Sodium (Senna/Docusate Sodium 1 Tablet) 2 tablet PO BID [facility] Last Admin: 01/29/20 20:56 Dose: Not Given Documented by: Sodium Chloride (0.9% Saline Lock 10 Ml Syringe) 10 - 40 ml IV UD PRN PRN Reason: SALINE FLUSH Last Admin: 01/29/20 17:26 Dose: 10 ml Documented by: Tacrolimus (Tacrolimus 0.5 Mg Capsule) 0.5 mg GT BID [facility] Last Admin: 01/29/20 20:55 Dose: 0.5 mg Documented by: STROKE Vital Signs/Narrative: Vital Signs Pulse Resp BP Pulse Ox 01/30/20 06:00 90 25 H 188/85 H 97 01/30/20 05:00 88 24 H 144/83 H 93 01/30/20 04:00 88 152/88 H 93 Medical Necessity - Tobacco Use Smoking Status: Former smoker Tobacco Use: Non-smoker Assessment/Plan All Active Problems (Last Updated 09/02/18 @ 13:55 by Katheryn Mosqueda) TUCKER (acute kidney injury) (Acute) a fib with rvr (Acute) COVID-19 virus infection (Acute) Acute respiratory failure with hypoxia (Acute) This is a 54 years old male patient presented to the emergency room because of shortness of breath, found to have COVID-19 pneumonia and his pulse ox dropped while patient was in the ED, needed to be intubated and started on mechanical ventilation. After admission, he developed TUCKER on CKD stage III requiring hemodialysis as well as new onset A. fib/flutter with RVR. #1 Acute hypoxic respiratory failure secondary to acute bilateral COVID-19 pneumonia: Patient has high D-dimer 4.26 and is on IV heparin drip. Patient completed 5 days of remdesivir. On IV Decadron. Chest x-ray showed extensive multilobar consolidation suggesting pneumonia. Patient was on mechanical ventilator which was extubated on 01/26 and currently on 40% FiO2 AIR VO. Gram stain of tracheal aspirate shows rare gram-positive cocci in clusters. Previous respiratory culture reported very rare mixed normal respiratory chevy. On IV cefepime Comanagement by loaders and ID. 01/27: A. fib with RVR, difficult to control heart rate: Dr. Uribe was consulted and saw the patient yesterday. Currently on amiodarone and diltiazem drip. Metoprolol 50 mg p.o. twice daily. Patient also had total digoxin 750 mcg IV yesterday. On IV drip Heparin 01/28: Currently in sinus rhythm. Cardiology follow-up appreciated. Amiodarone drip is transition to oral. Cardizem drip is gradually weaned off and metoprolol dose increased 200 mg p.o. twice daily. On vancomycin and cefepime. Blood culture coagulase negative staph. Completed 5 days of remdesivir. On therapeutic Lovenox. Leukocytosis. Patient is on prednisone for history of renal transplant. 01/29: Blood culture reported as a staph epidermidis, mec A resistance. On oxygen support. Still hypoxic and short of breath 2. Abnormal cardiac enzymes: Likely due to demand ischemia. EKG without acute segment changes. 3. Acute kidney injury on top of stage III chronic kidney disease: In the setting of history of renal transplant. Status post hemodialysis x2. Seen by supervisor [place]. No need for dialysis today. As per transplant supervisor [place], tacrolimus resumed at lower dose 0.5 mg twice daily. Diuretic as needed. K4.6. BUN/creatinine 65/1.36, improving trend. 01/27: Serum creatinine 1.49, estimated creatinine clearance about 50 mils per minute. Serum creatinine is improving. Hold for dialysis as per supervisor [place]. Tacrolimus level tomorrow a.m as patient is on amiodarone which is Dr. Interaction with tacrolimus. 01/28: BUN/creatinine stable. Electrolytes in normal limit. Good urine output 3500 mL on 01/27. Negative fluid balance 1.6 L. On Lasix. 01/29: BUN/creatinine has plateaued. #5 new onset atrial flutter/fibrillation: Currently sinus rhythm. Heart rate in 90s with intermittent 117/min today, he went back into A. fib with RVR, receiving IV amiodarone bolus. Now, he is back in sinus rhythm, blood pressure is borderline. He is also on metoprolol. On IV heparin drip for anticoagulation. 01/29: Currently in sinus rhythm. On amiodarone. #6 hypertension: Currently blood pressure borderline but stable.. Antihypertensive medications held. #7 hyperlipidemia: Statins held. #8 DVT prophylaxis: Remained on IV heparin drip. Clinical Impression(s) from Imaging Studies Chest X-Ray 01/18/20 17:00 IMPRESSION: 1. Extensive multilobar airspace disease suggesting pneumonia, including viral causes. Chest X-Ray 01/26/20 12:09 IMPRESSION: Extensive bilateral airspace opacities increase in the right lung when compared to prior study. Microbiology Past 72 Hours 01/26/20 12:30 Blood Culture (Wb) - Right Forearm Bacteria Detection (PCR) - Final Staphylococcus epidermidis mecA Resistance Marker 01/26/20 12:30 Blood Culture (Wb) - Right Forearm Blood Culture - Preliminary Staphylococcus epidermidis 01/26/20 13:12 Sputum, Tracheal Aspirate Gram Stain - Final 01/26/20 13:12 Sputum, Tracheal Aspirate Respiratory Culture - Final Presumptive C albicans 01/26/20 12:30 Blood Culture (Wb) - Anticubital Right Blood Culture - Preliminary Coag Negative Staph Laboratory Results 01/29/20 12:35: POC Glucose 188 H 01/29/20 17:08: POC Glucose 160 H 01/29/20 20:53: POC Glucose 180 H 01/30/20 00:50: POC Glucose 88 01/30/20 06:25: Vancomycin Trough 15.3 H 01/30/20 06:25: WBC 19.7 H, RBC 3.46 L, Hgb 9.6 L, Hct 31.6 L, MCV 91.3, MCH 27.7, MCHC 30.4 L, RDW Std Deviation 45.1 H, RDW Coeff of Genaro 13.8, Plt Count 280, MPV 10.1, Immature Gran % (Auto) 1.600 H, Neut % (Auto) 90.0 H, Lymph % (Auto) 5.8 L, [place] % (Auto) 1.4, Eos % (Auto) 1.0, Baso % (Auto) 0.2, Absolute Neuts (auto) 17.7 H, Absolute Lymphs (auto) 1.14, Nucleated RBC % 0.2 01/30/20 06:25: Sodium 141, Potassium 3.7, Chloride 107, Carbon Dioxide 27.0, Anion Gap 7, BUN 33 H, Creatinine 1.44 H, Estim Creat Clear Calc 56.74, Est GFR (MDRD) Af Amer 66, Est GFR (MDRD) Non-Af 54 L, BUN/Creatinine Ratio 22.9 H, Glucose 88, Calcium 9.0 01/30/20 06:34: POC Glucose 95 01/30/20 11:08: POC Glucose 130 H Inpatient E&M: 90805 Subs Hosp L3
[2020-01-30] MEDS: Aspirin 81 MG TAB.CHEW GT (09:59)
[2020-01-30] MEDS: Ensure Clear 120 ML Liquid PO (09:59)
[2020-01-30] MEDS: Furosemide 40 MG/4 ML Vial IV ×2 (09:59→17:53)
[2020-01-30] MEDS: Tacrolimus 0.5 MG Capsule GT ×2 (10:00→21:47)
[2020-01-30] MEDS: Enoxaparin 80 MG/0.8 ML Syringe 70 MG SC ×2 (10:00→21:46)
[2020-01-30] MEDS: Pantoprazole Sodium 40 MG Tablet PO ×2 (10:00→21:50)
[2020-01-30] MEDS: Senna/Docusate Sodium 1 Tablet 2 TABLET PO ×2 (10:00→21:46)
[2020-01-30] MEDS: Metoprolol Tartrate 100 MG Tablet PO ×2 (10:00→21:42)
[2020-01-30] MEDS: predniSONE 5 MG Tablet 7.5 MG PO (10:00)
--- NOTE | 2020-01-30 10:38 | PCM.RX.CS ---
Consult Pharmacy has been consulted to manage selected antiobiotic: Vancomycin Type of Consult: Follow-up Labs: Sodium 141 mmol/L (136-145) 01/30/20 06:25 Potassium 3.7 mmol/L (3.5-5.1) 01/30/20 06:25 Chloride 107 mmol/L (98-107) 01/30/20 06:25 Carbon Dioxide 27.0 mmol/L (21.0-32.0) 01/30/20 06:25 Anion Gap 7 (5-15) 01/30/20 06:25 BUN 33 mg/dL (7-18) H 01/30/20 06:25 Creatinine 1.44 mg/dL (0.70-1.30) H 01/30/20 06:25 Est GFR (MDRD) Af Amer 66 mL/min (>60) 01/30/20 06:25 Est GFR (MDRD) Non-Af 54 mL/min (>60) L 01/30/20 06:25 BUN/Creatinine Ratio 22.9 RATIO (10-20) H 01/30/20 06:25 Glucose 88 mg/dL (74-106) 01/30/20 06:25 Vancomycin Trough 15.3 ug/mL (5.0-15.0) H 01/30/20 06:25 Microbiology: Microbiology 01/26/20 12:30 Blood Culture (Wb) - Right Forearm Bacteria Detection (PCR) - Final Staphylococcus epidermidis mecA Resistance Marker 01/26/20 12:30 Blood Culture (Wb) - Right Forearm Blood Culture - Preliminary Staphylococcus epidermidis 01/26/20 13:12 Sputum, Tracheal Aspirate Gram Stain - Final 01/26/20 13:12 Sputum, Tracheal Aspirate Respiratory Culture - Final Presumptive C albicans 01/26/20 12:30 Blood Culture (Wb) - Anticubital Right Blood Culture - Preliminary Coag Negative Staph 01/18/20 16:25 Blood Culture (Wb) - Anticubital Left Blood Culture - Final No growth in 5 days. 01/18/20 16:36 Blood Culture (Wb) - Left Forearm Blood Culture - Final No growth in 5 days. 01/19/20 01:45 Sputum, Induced/Lukens Gram Stain - Final 01/19/20 01:45 Sputum, Induced/Lukens Respiratory Culture - Final Goal Trough: 15-20 mcg/mL Pharmacy Plan for Drug Dosing: VANCOMYCIN LEVEL RECEIVED Current Vancomycin Dose: 750MG Q12H Number of Doses Received: 3 Vancomycin Level: 15.3 MG/DL Hours Since Last Dose: 16 Renal Function: SCR 1.44, CRCL 56.7ML/MIN (FYI - RENAL TRANSPLANT PATIENT) Renal Function Trend: STABLE Lab/Micro: MRSE IN WOUND CULTURE Vancomycin Plan/Comments: LAB WAS DRAWN 3.5 HOURS LATE SO LAST BAG WAS NOT HUNG UNTIL 0700 PER NURSE (DOCUMENTED 0958). 16 HOUR TROUGH WAS WITHIN RANGE BUT TRUE TROUGH WAS LIKELY HIGHER. LEVEL IS NOT PARTICULARLY RELIABLE SO WILL DRAW ANOTHER LEVEL TOMORROW EVENING TO REASSESS ONCE PATIENT IS BACK ON A NORMAL DOSING SCHEDULE. SCHEDULED CHANGED TO 0700/1900. Pharmacy Service will continue to monitor and adjust dosing as required. Labs to be done on [date and time ordered]: 01/31/20 @ 1717
[2020-01-30 12:10] LABS: Bedside Glucose 130 mg/dL (70-110)
--- NOTE | 2020-01-30 12:31 | PCM.PN.REN ---
Patient Problems: Active and Suspected Problems (Last Updated 09/02/18 @ 13:55 by Katheryn Mosqueda) TUCKER (acute kidney injury) (Acute) a fib with rvr (Acute) COVID-19 virus infection (Acute) Acute respiratory failure with hypoxia (Acute) Subjective: No complaints no shortness of breath no chest pain Objective: Got examination deferred to preserve PPE and to prevent further transmission of COVID-19 - Physical Exam Vitals/I&O's: Vital Signs Temp Pulse Resp BP Pulse Ox 100.4 F H 99 25 H 188/85 H 95 01/30/20 00:00 01/30/20 10:00 01/30/20 06:00 01/30/20 06:00 01/30/20 09:40 Oxygen Flow Rate (L/min) 8 Oxygen Delivery Method Nasal Cannula Weight: 74.8 kg Body Mass Index (BMI) 26.0 Intake and Output for Last 24 Hours 01/28/20 01/29/20 01/30/20 23:59 23:59 23:59 Intake Total 2649.74 / 2649.74 2667.16 / 2677.16 74.33 / 74.33 Output Total 3500 / 3500 2825 / 2825 275 / 275 Balance -850.26 / -850.26 -157.84 / -147.84 -200.67 / -200.67 Microbiology Past 72 Hours 01/26/20 12:30 Blood Culture (Wb) - Right Forearm Bacteria Detection (PCR) - Final Staphylococcus epidermidis mecA Resistance Marker 01/26/20 12:30 Blood Culture (Wb) - Right Forearm Blood Culture - Preliminary Staphylococcus epidermidis 01/26/20 13:12 Sputum, Tracheal Aspirate Gram Stain - Final 01/26/20 13:12 Sputum, Tracheal Aspirate Respiratory Culture - Final Presumptive C albicans 01/26/20 12:30 Blood Culture (Wb) - Anticubital Right Blood Culture - Preliminary Coag Negative Staph Laboratory Results 01/29/20 12:35: POC Glucose 188 H 01/29/20 17:08: POC Glucose 160 H 01/29/20 20:53: POC Glucose 180 H 01/30/20 00:50: POC Glucose 88 01/30/20 06:25: Vancomycin Trough 15.3 H 01/30/20 06:25: WBC 19.7 H, RBC 3.46 L, Hgb 9.6 L, Hct 31.6 L, MCV 91.3, MCH 27.7, MCHC 30.4 L, RDW Std Deviation 45.1 H, RDW Coeff of Genaro 13.8, Plt Count 280, MPV 10.1, Immature Gran % (Auto) 1.600 H, Neut % (Auto) 90.0 H, Lymph % (Auto) 5.8 L, Person % (Auto) 1.4, Eos % (Auto) 1.0, Baso % (Auto) 0.2, Absolute Neuts (auto) 17.7 H, Absolute Lymphs (auto) 1.14, Nucleated RBC % 0.2 01/30/20 06:25: Sodium 141, Potassium 3.7, Chloride 107, Carbon Dioxide 27.0, Anion Gap 7, BUN 33 H, Creatinine 1.44 H, Estim Creat Clear Calc 56.74, Est GFR (MDRD) Af Amer 66, Est GFR (MDRD) Non-Af 54 L, BUN/Creatinine Ratio 22.9 H, Glucose 88, Calcium 9.0 01/30/20 06:34: POC Glucose 95 01/30/20 11:08: POC Glucose 130 H Current Medications Acetaminophen (Acetaminophen 650 Mg Suppository) 650 mg RECTAL Q6H PRN PRN PRN Reason: Pain Score 1-10/Temp > 100.7 F Last Admin: 01/27/20 21:31 Dose: 650 mg Documented by: Albuterol Sulfate (Albuterol 2.5 Mg/3 Ml Vial.Neb.) 2.5 mg INHALATION Q2H PRN PRN PRN Reason: WHEEZING Amiodarone HCl (Amiodarone 200 Mg Tablet) 200 mg PO TID [facility] Stop: 02/04/20 23:55 Last Admin: 01/30/20 06:35 Dose: 200 mg Documented by: Amiodarone HCl (Amiodarone 200 Mg Tablet) 200 mg PO BID [facility] Stop: 02/18/20 22:01 Amiodarone HCl (Amiodarone 200 Mg Tablet) 200 mg PO DAILY [facility] Aspirin (Aspirin 81 Mg Tab.Chew) 81 mg GT DAILY [facility] Last Admin: 01/30/20 09:59 Dose: 81 mg Documented by: Enoxaparin Sodium (Enoxaparin 80 Mg/0.8 Ml Syringe) 70 mg SC Q12 [facility] Last Admin: 01/30/20 10:00 Dose: 70 mg Documented by: Furosemide (Furosemide 40 Mg/4 Ml Vial) 40 mg IV 1000,1700 [facility] Last Admin: 01/30/20 09:59 Dose: 40 mg Documented by: Sodium Chloride () 250 mls @ 15 mls/hr IV .[id number] PRN PRN Reason: Saline Flush Last Admin: 01/29/20 09:47 Dose: 15 mls/hr Documented by: Sodium Chloride () 250 mls @ 15 mls/hr IV .[id number] PRN PRN Reason: Additional IVPB Infusion Diltiazem HCl 125 mg/ Dextrose 125 mls @ 5 mls/hr IV .Q25H [facility]; Protocol Last Admin: 01/30/20 07:05 Dose: 5 mg/hr, 5 mls/hr Documented by: Vancomycin IV Pharmacy to Dose (1 ea/ Sodium Chloride) 500 mls @ 250 mls/hr IV PRN PRN; Protocol PRN Reason: Rx to Dose Cefepime HCl 1 gm/ Sodium (Chloride) 50 mls @ 100 mls/hr IV Q8 [facility] Last Admin: 01/30/20 06:36 Dose: 100 mls/hr Documented by: Vancomycin HCl 750 mg/ Sodium (Chloride) 265 mls @ 250 mls/hr IV Q12H [facility] Insulin Glargine (Insulin Glargine 100 Units/Ml Pen) 10 units SC BID [facility] Last Admin: 01/30/20 09:59 Dose: 10 u Documented by: Insulin Human Lispro (Insulin Lispro 100 Unit/Ml Insuln.Pen) 0 unit SC Q6 [facility]; Protocol Last Admin: 01/30/20 06:37 Dose: Not Given Documented by: Metoprolol Tartrate (Metoprolol Tartrate 100 Mg Tablet) 100 mg PO BID [facility] Last Admin: 01/30/20 10:00 Dose: 100 mg Documented by: Ondansetron HCl (Ondansetron 4 Mg/2 Ml Vial) 4 mg IV Q8H PRN PRN PRN Reason: NAUSEA/VOMITING Pantoprazole Sodium (Pantoprazole Sodium 40 Mg Tablet) 40 mg PO BID [facility] Last Admin: 01/30/20 10:00 Dose: 40 mg Documented by: Prednisone (Prednisone 5 Mg Tablet) 7.5 mg PO DAILY [facility] Last Admin: 01/30/20 10:00 Dose: 7.5 mg Documented by: Senna/Docusate Sodium (Senna/Docusate Sodium 1 Tablet) 2 tablet PO BID [facility] Last Admin: 01/30/20 10:00 Dose: 2 tablet Documented by: Sodium Chloride (0.9% Saline Lock 10 Ml Syringe) 10 - 40 ml IV UD PRN PRN Reason: SALINE FLUSH Last Admin: 01/29/20 17:26 Dose: 10 ml Documented by: Tacrolimus (Tacrolimus 0.5 Mg Capsule) 0.5 mg GT BID [facility] Last Admin: 01/30/20 10:00 Dose: 0.5 mg Documented by: Medical Necessity - Tobacco Use Smoking Status: Former smoker Tobacco Use: Non-smoker Assessment/Plan All Active Problems (Last Updated 09/02/18 @ 13:55 by Katheryn Mosqueda) TUCKER (acute kidney injury) (Acute) a fib with rvr (Acute) COVID-19 virus infection (Acute) Acute respiratory failure with hypoxia (Acute) ESRD s/p renal transplant TUCKER ATN with COVID-19 Hypernatremia resolved Hyperkalemia resolved COVID-19 Scr 1.44 stable avoid nephrotoxins 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 twice daily His home dose of tacrolimus is 1 mg p.o. twice daily but for now we will just use the low-dose as above as instructed by transplant nephrology until trough level available Prograf level f/u before adjusting further the tacrolimus dose. Can use diuretics with daily bmp to avoid overdiuresis On amiodarone po now and Cardizem drip for rate control .
--- NOTE | 2020-01-30 15:41 | PN.ID_ITS ---
Patient Problems: Active and Suspected Problems (Last Updated 09/02/18 @ 13:55 by Katheryn Mosqueda) TUCKER (acute kidney injury) (Acute) a fib with rvr (Acute) COVID-19 virus infection (Acute) Acute respiratory failure with hypoxia (Acute) Subjective: Feeling better, some sputum and dyspnea, no fever - Physical Exam Vitals/I&O's: Vital Signs Temp Pulse Resp BP Pulse Ox 100.4 F H 99 25 H 188/85 H 96 01/30/20 00:00 01/30/20 10:00 01/30/20 06:00 01/30/20 06:00 01/30/20 13:15 Oxygen Flow Rate (L/min) 8 Oxygen Delivery Method Nasal Cannula Weight: 74.8 kg Body Mass Index (BMI) 26.0 Intake and Output for Last 24 Hours 01/28/20 01/29/20 01/30/20 23:59 23:59 23:59 Intake Total 2649.74 / 2649.74 2667.16 / 2677.16 74.33 / 74.33 Output Total 3500 / 3500 2825 / 2825 275 / 275 Balance -850.26 / -850.26 -157.84 / -147.84 -200.67 / -200.67 General: Alert, Cooperative, No apparent distress Lungs: Diminished Cardiovascular: Regular rate, Regular Rhythm Abdomen: Soft, Non Tender, Non-Distended Skin: No rashes Microbiology Past 72 Hours 01/28/20 13:30 Blood Culture (Wb) - Anticubital Right Blood Culture - Preliminary No growth in 48 hours. 01/28/20 13:45 Blood Culture (Wb) - Right Wrist Blood Culture - Preliminary No growth in 48 hours. 01/26/20 12:30 Blood Culture (Wb) - Right Forearm Bacteria Detection (PCR) - Final Staphylococcus epidermidis mecA Resistance Marker 01/26/20 12:30 Blood Culture (Wb) - Right Forearm Blood Culture - Preliminary Staphylococcus epidermidis 01/26/20 13:12 Sputum, Tracheal Aspirate Gram Stain - Final 01/26/20 13:12 Sputum, Tracheal Aspirate Respiratory Culture - Final Presumptive C albicans 01/26/20 12:30 Blood Culture (Wb) - Anticubital Right Blood Culture - Preliminary Coag Negative Staph Laboratory Results 01/29/20 17:08: POC Glucose 160 H 01/29/20 20:53: POC Glucose 180 H 01/30/20 00:50: POC Glucose 88 01/30/20 06:25: Vancomycin Trough 15.3 H 01/30/20 06:25: WBC 19.7 H, RBC 3.46 L, Hgb 9.6 L, Hct 31.6 L, MCV 91.3, MCH 27.7, MCHC 30.4 L, RDW Std Deviation 45.1 H, RDW Coeff of Genaro 13.8, Plt Count 280, MPV 10.1, Immature Gran % (Auto) 1.600 H, Neut % (Auto) 90.0 H, Lymph % (Auto) 5.8 L, [place] % (Auto) 1.4, Eos % (Auto) 1.0, Baso % (Auto) 0.2, Absolute Neuts (auto) 17.7 H, Absolute Lymphs (auto) 1.14, Nucleated RBC % 0.2 01/30/20 06:25: Sodium 141, Potassium 3.7, Chloride 107, Carbon Dioxide 27.0, Anion Gap 7, BUN 33 H, Creatinine 1.44 H, Estim Creat Clear Calc 56.74, Est GFR (MDRD) Af Amer 66, Est GFR (MDRD) Non-Af 54 L, BUN/Creatinine Ratio 22.9 H, Glucose 88, Calcium 9.0 01/30/20 06:34: POC Glucose 95 01/30/20 11:08: POC Glucose 130 H Current Medications Acetaminophen (Acetaminophen 650 Mg Suppository) 650 mg RECTAL Q6H PRN PRN PRN Reason: Pain Score 1-10/Temp > 100.7 F Last Admin: 01/27/20 21:31 Dose: 650 mg Documented by: Albuterol Sulfate (Albuterol 2.5 Mg/3 Ml Vial.Neb.) 2.5 mg INHALATION Q2H PRN PRN PRN Reason: WHEEZING Amiodarone HCl (Amiodarone 200 Mg Tablet) 200 mg PO TID [facility] Stop: 02/04/20 23:55 Last Admin: 01/30/20 15:18 Dose: 200 mg Documented by: Amiodarone HCl (Amiodarone 200 Mg Tablet) 200 mg PO BID [facility] Stop: 02/18/20 22:01 Amiodarone HCl (Amiodarone 200 Mg Tablet) 200 mg PO DAILY [facility] Aspirin (Aspirin 81 Mg Tab.Chew) 81 mg GT DAILY [facility] Last Admin: 01/30/20 09:59 Dose: 81 mg Documented by: Enoxaparin Sodium (Enoxaparin 80 Mg/0.8 Ml Syringe) 70 mg SC Q12 [facility] Last Admin: 01/30/20 10:00 Dose: 70 mg Documented by: Furosemide (Furosemide 40 Mg/4 Ml Vial) 40 mg IV 1000,1700 [facility] Last Admin: 01/30/20 09:59 Dose: 40 mg Documented by: Sodium Chloride () 250 mls @ 15 mls/hr IV .[id number] PRN PRN Reason: Saline Flush Last Admin: 01/29/20 09:47 Dose: 15 mls/hr Documented by: Sodium Chloride () 250 mls @ 15 mls/hr IV .[id number] PRN PRN Reason: Additional IVPB Infusion Diltiazem HCl 125 mg/ Dextrose 125 mls @ 5 mls/hr IV .Q25H [facility]; Protocol Last Admin: 01/30/20 07:05 Dose: 5 mg/hr, 5 mls/hr Documented by: Vancomycin IV Pharmacy to Dose (1 ea/ Sodium Chloride) 500 mls @ 250 mls/hr IV PRN PRN; Protocol PRN Reason: Rx to Dose Vancomycin HCl 750 mg/ Sodium (Chloride) 265 mls @ 250 mls/hr IV Q12H [facility] Insulin Glargine (Insulin Glargine 100 Units/Ml Pen) 10 units SC BID [facility] Last Admin: 01/30/20 09:59 Dose: 10 u Documented by: Insulin Human Lispro (Insulin Lispro 100 Unit/Ml Insuln.Pen) 0 unit SC Q6 [facility]; Protocol Last Admin: 01/30/20 15:17 Dose: Not Given Documented by: Metoprolol Tartrate (Metoprolol Tartrate 100 Mg Tablet) 100 mg PO BID [facility] Last Admin: 01/30/20 10:00 Dose: 100 mg Documented by: Ondansetron HCl (Ondansetron 4 Mg/2 Ml Vial) 4 mg IV Q8H PRN PRN PRN Reason: NAUSEA/VOMITING Pantoprazole Sodium (Pantoprazole Sodium 40 Mg Tablet) 40 mg PO BID [facility] Last Admin: 01/30/20 10:00 Dose: 40 mg Documented by: Prednisone (Prednisone 5 Mg Tablet) 7.5 mg PO DAILY [facility] Last Admin: 01/30/20 10:00 Dose: 7.5 mg Documented by: Senna/Docusate Sodium (Senna/Docusate Sodium 1 Tablet) 2 tablet PO BID [facility] Last Admin: 01/30/20 10:00 Dose: 2 tablet Documented by: Sodium Chloride (0.9% Saline Lock 10 Ml Syringe) 10 - 40 ml IV UD PRN PRN Reason: SALINE FLUSH Last Admin: 01/29/20 17:26 Dose: 10 ml Documented by: Tacrolimus (Tacrolimus 0.5 Mg Capsule) 0.5 mg GT BID [facility] Last Admin: 01/30/20 10:00 Dose: 0.5 mg Documented by: Medical Necessity - Tobacco Use Smoking Status: Former smoker Tobacco Use: Non-smoker Route of nutrition/ use of supplements: [] Nutritional Intake: [] IV Site: [] Fernando Catheter: [] - Assessment/Plan Antibiotics: [] Assessment/Plan: [] Active and Suspected Problems (Last Updated 09/02/18 @ 13:55 by Katheryn Mosqueda) COVID-19 virus infection (Acute) Acute respiratory failure with hypoxia (Acute) covid with hypoxia, resp failure, renal transplant - on therapeutic lovenox, completed 10 days of dex, and completed 5 doses of remdesivir 01/22. D-dimer was 4.2. O2 worse, off vent, ongoing issues with afib, continued fever, rising wbc; so on 01/27 repeated cxs and started vanc/cefepime. 2 of 2 bcx with CoNS. Sputum with some yeast. Now afebrile, feeling better, O2 improved. Cont vanc for CoNS bacteremia, will stop cefepime. Will follow
--- NOTE | 2020-01-30 17:12 | PN.CARD_ITS ---
Subjectve: The patient remains in the ICU. He remains off of the ventilator. He remains on IV medications including IV diltiazem. Objective: Vital Signs Temp Pulse Resp BP Pulse Ox 99.2 F H 97 22 H 119/77 95 01/30/20 16:00 01/30/20 16:00 01/30/20 16:00 01/30/20 16:00 01/30/20 16:00 Oxygen Flow Rate (L/min) 8 Oxygen Delivery Method Nasal Cannula Weight: 164 lb 14.492 oz Body Mass Index (BMI) 26.0 Intake and Output for Last 24 Hours 01/28/20 01/29/20 01/30/20 23:59 23:59 23:59 Intake Total 2649.74 / 2649.74 2667.16 / 2677.16 74.33 / 74.33 Output Total 3500 / 3500 2825 / 2825 925 / 925 Balance -850.26 / -850.26 -157.84 / -147.84 -850.67 / -850.[address] Hazel 01/30/20 06:25: WBC 19.7 H, RBC 3.46 L, Hgb 9.6 L, Hct 31.6 L, MCV 91.3, MCH 27.7, MCHC 30.4 L, Plt Count 280, MPV 10.1, Immature Gran % (Auto) 1.600 H, Neut % (Auto) 90.0 H, Lymph % (Auto) 5.8 L, [place] % (Auto) 1.4, Eos % (Auto) 1.0, Baso % (Auto) 0.2, Absolute Neuts (auto) 17.7 H, Nucleated RBC % 0.2 01/30/20 06:25: Sodium 141, Potassium 3.7, Chloride 107, Carbon Dioxide 27.0, Anion Gap 7, BUN 33 H, Creatinine 1.44 H, Est GFR (MDRD) Af Amer 66, Est GFR (MDRD) Non-Af 54 L, BUN/Creatinine Ratio 22.9 H, Glucose 88, Calcium 9.0 Rhythm: Sinus rhythm Medical Necessity - Tobacco Use Smoking Status: Former smoker Tobacco Use: Non-smoker Assessment/Plan 1. Atrial fibrillation with RVR The patient has had atrial fibrillation with RVR. He has had no history of this in the past. This may be related to his underlying COVID-19 status superimposed upon his history of hypertension, etc. At his evaluation earlier this day he appeared to be in sinus rhythm at the time. At the moment he is going to continue medical therapy as he tolerates. Includes his oral [id number] with applesauce to minimize the risk of aspiration, he is IV diltiazem which is slowly being weaned off, his oral amiodarone-taken with applesauce to minimize the risk of aspiration, and continuation of his anticoagulant therapy. His case been previously discussed with the pharmacy team. Their assistance was requested with respect to monitoring his medication, dose levels, etc. with respect to interaction with his immunosuppressive agents. 2. Status post renal transplant The patient is status post renal transplant. His renal function appears to be stable at this time. Depending upon his cardiovascular course and his needs for cardiovascular medical therapy consideration may have to be given with input from pharmacy, etc., and how to adjust medications. 3. Hyperlipidemia He can continue lipid-lowering therapy as deemed appropriate. 4. Hypertension His blood pressure is being followed. Hopefully his medicines can be adjusted to avoid significant hypotension and the need for repeat IV vasopressor support. 5. COVID-19 He is COVID-19 positive. He is continuing medical therapy per infectious disease and pulmonology. Depending upon his respiratory status he may or may not require repeat intubation. This note was generated using a voice recognition system and there may be incorrect words, spelling or punctuation that were not noted when reviewing the office note prior to saving.
[2020-01-30 21:45] LABS: Bedside Glucose 107 mg/dL (70-110)
[2020-01-30 22:05] LABS: Bedside Glucose 99 mg/dL (70-110)
[2020-01-31] VITALS (33 sets, daily range): BP systolic 100–177; BP diastolic 48–104; PULSE 83–101; RESP 12–38; TEMP 36.8–37.9; O2SAT 89–98
[2020-01-31 01:11] LABS: Bedside Glucose 87 mg/dL (70-110)
--- NOTE | 2020-01-31 05:41 | PN_ITS ---
Subjective: The patient was seen and examined at the bedside this morning. Events from the last 24 hours have been reviewed. The patient currently has a low-grade fever, but remains hemodynamically stable. The patient remains on antimicrobials, along with therapeutic Lovenox, twice daily scheduled IV Lasix, p.o. amiodarone and a Cardizem drip. He is currently documented to be overall net -4.3 L for the hospital admission. The patient tolerated BiPAP overnight and is currently in his bedside recliner, maintaining appropriate oxygen saturations on 7 L/min. Objective: The patient's most recent lab work, culture data and imaging studies have all been personally reviewed. Surface echocardiogram from November 2018 revealed no rmal LV size with an ejection fraction of 55%. Pulmonary artery systolic pressure was estimated to be 25 to 30 mmHg. Coronavirus testing was positive on January 01. Sputum and blood cultures have shown no growth to date. General: Alert, Cooperative, No apparent distress, - - Sitting in bedside recliner HEENT: Atraumatic, PERRLA, Normocephalic Oral: Dry Mucosa Neck: Supple, No Nodes, Trachea Midline Lungs: No rhonchi, No wheeze, No rales, Diminished Cardiovascular: Regular rate, Regular Rhythm Abdomen: Bowel Sounds Present, Soft, Non Tender Extremities: No clubbing, No cyanosis, No edema Skin: - - No significant change from previous Musculoskeletal: No Tenderness to Palpation of Joints or Extremities Lymphatic: No Cervical, Supraclavicular, or Inguinal Adenopathy Neurological: Cranial nerves II-XII grossly intact, Neuro grossly intact Psych/Mental Status: Flat Affect Vital Signs Temp Pulse Resp BP Pulse Ox 100.2 F H 87 32 H 144/78 H 97 01/31/20 00:00 01/31/20 01:00 01/31/20 01:00 01/31/20 01:00 01/31/20 01:00 Oxygen Flow Rate (L/min) 8 Oxygen Delivery Method Bi-pap Weight: 164 lb 14.492 oz Body Mass Index (BMI) 26.0 Intake and Output for Last 24 Hours 01/29/20 01/30/20 01/31/20 23:59 23:59 23:59 Intake Total 2667.16 / 2677.16 74.33 / 74.33 Output Total 2825 / 2825 1652 / 1652 450 / 450 Balance -157.84 / -147.84 -1577.67 / -1577.67 -450 / -450 Labs (Last 48 Hours) 01/29/20 01/29/20 01/29/20 04:15 04:15 12:35 WBC 21.7 H RBC 3.46 L Hgb 9.8 L Hct 32.1 L MCV 92.8 MCH 28.3 MCHC 30.5 L RDW Std Deviation 46.0 H RDW Coeff of Genaro 13.8 Plt Count 311 MPV 11.2 Immature Gran % (Auto) 1.100 H Neut % (Auto) 91.5 H Lymph % (Auto) 3.8 L Sheridan % (Auto) 2.3 Eos % (Auto) 1.2 Baso % (Auto) 0.1 Absolute Neuts (auto) 19.8 H Absolute Lymphs (auto) 0.82 L Nucleated RBC % 0.2 Sodium 140 Potassium 4.0 Chloride 105 Carbon Dioxide 27.0 Anion Gap 8 BUN 41 H Creatinine 1.43 H Estim Creat Clear Calc 57.13 Est GFR (MDRD) Af Amer 66 Est GFR (MDRD) Non-Af 55 L BUN/Creatinine Ratio 28.7 H Glucose 134 H Calcium 8.5 Vancomycin Trough POC Glucose 188 H 01/29/20 01/29/20 01/30/20 17:08 20:53 00:50 WBC RBC Hgb Hct MCV MCH MCHC RDW Std Deviation RDW Coeff of Genaro Plt Count MPV Immature Gran % (Auto) Neut % (Auto) Lymph % (Auto) Sheridan % (Auto) Eos % (Auto) Baso % (Auto) Absolute Neuts (auto) Absolute Lymphs (auto) Nucleated RBC % Sodium Potassium Chloride Carbon Dioxide Anion Gap BUN Creatinine Estim Creat Clear Calc Est GFR (MDRD) Af Amer Est GFR (MDRD) Non-Af BUN/Creatinine Ratio Glucose Calcium Vancomycin Trough POC Glucose 160 H 180 H 88 01/30/20 01/30/20 01/30/20 06:25 06:25 06:25 WBC 19.7 H RBC 3.46 L Hgb 9.6 L Hct 31.6 L MCV 91.3 MCH 27.7 MCHC 30.4 L RDW Std Deviation 45.1 H RDW Coeff of Genaro 13.8 Plt Count 280 MPV 10.1 Immature Gran % (Auto) 1.600 H Neut % (Auto) 90.0 H Lymph % (Auto) 5.8 L Sheridan % (Auto) 1.4 Eos % (Auto) 1.0 Baso % (Auto) 0.2 Absolute Neuts (auto) 17.7 H Absolute Lymphs (auto) 1.14 Nucleated RBC % 0.2 Sodium 141 Potassium 3.7 Chloride 107 Carbon Dioxide 27.0 Anion Gap 7 BUN 33 H Creatinine 1.44 H Estim Creat Clear Calc 56.74 Est GFR (MDRD) Af Amer 66 Est GFR (MDRD) Non-Af 54 L BUN/Creatinine Ratio 22.9 H Glucose 88 Calcium 9.0 Vancomycin Trough 15.3 H POC Glucose 01/30/20 01/30/20 01/30/20 06:34 11:08 17:18 WBC RBC Hgb Hct MCV MCH MCHC RDW Std Deviation RDW Coeff of Genaro Plt Count MPV Immature Gran % (Auto) Neut % (Auto) Lymph % (Auto) Sheridan % (Auto) Eos % (Auto) Baso % (Auto) Absolute Neuts (auto) Absolute Lymphs (auto) Nucleated RBC % Sodium Potassium Chloride Carbon Dioxide Anion Gap BUN Creatinine Estim Creat Clear Calc Est GFR (MDRD) Af Amer Est GFR (MDRD) Non-Af BUN/Creatinine Ratio Glucose Calcium Vancomycin Trough POC Glucose 95 130 H 107 01/30/20 01/31/20 21:38 00:26 WBC RBC Hgb Hct MCV MCH MCHC RDW Std Deviation RDW Coeff of Genaro Plt Count MPV Immature Gran % (Auto) Neut % (Auto) Lymph % (Auto) Sheridan % (Auto) Eos % (Auto) Baso % (Auto) Absolute Neuts (auto) Absolute Lymphs (auto) Nucleated RBC % Sodium Potassium Chloride Carbon Dioxide Anion Gap BUN Creatinine Estim Creat Clear Calc Est GFR (MDRD) Af Amer Est GFR (MDRD) Non-Af BUN/Creatinine Ratio Glucose Calcium Vancomycin Trough POC Glucose 99 87 Microbiology 01/28/20 13:30 Blood Culture (Wb) - Anticubital Right Blood Culture - Pre liminary No growth in 48 hours. 01/28/20 13:45 Blood Culture (Wb) - Right Wrist Blood Culture - Preliminary No growth in 48 hours. 01/26/20 12:30 Blood Culture (Wb) - Right Forearm Bacteria Detection (PCR) - Final Staphylococcus epidermidis mecA Resistance Marker 01/26/20 12:30 Blood Culture (Wb) - Right Forearm Blood Culture - Preliminary Staphylococcus epidermidis 01/26/20 13:12 Sputum, Tracheal Aspirate Gram Stain - Final 01/26/20 13:12 Sputum, Tracheal Aspirate Respiratory Culture - Final Presumptive C albicans Clinical Impression(s) from Imaging Studies Chest X-Ray 01/18/20 17:00 IMPRESSION: 1. Extensive multilobar airspace disease suggesting pneumonia, including viral causes. Electronically Signed: Tyrone Borrero MD (Bro[place]) at 17:22 EST , Service support , Chest X-Ray 01/18/20 20:40 KUB X-Ray 01/23/20 00:01 IMPRESSION: 1. Appropriate positioning of supportive devices 2. Normal bowel gas pattern Electronically Signed: Jonathan Aguilar MD at 1:57 EST Tel , Service support , Chest X-Ray 01/26/20 12:09 IMPRESSION: Extensive bilateral airspace opacities increase in the right lung when compared to prior study. at [id number] Reported and signed by: Macrina Herrmann DO Electronically Signed: Macrina Herrmann DO at 23:28 EST Tel , Service support , Chest X-Ray 01/28/20 08:50 IMPRESSION: Minimal improvement in the diffuse bilateral airspace disease. The endotracheal tube and orogastric tube have been removed. Electronically Signed: Richard Pérez, at 9:30 EST , Service support , Medical Necessity - Tobacco Use Smoking Status: Former smoker Tobacco Use: Non-smoker Assessment/Plan All Active Problems (Last Updated 09/02/18 @ 13:55 by Katheryn Kilner) TUCKER (acute kidney injury) (Acute) a fib with rvr (Acute) COVID-19 virus infection (Acute) Acute respiratory failure with hypoxia (Acute) RECOMMENDATIONS: 1. Continue rate/rhythm control strategy per cardiology recommendations. 2. Continue attempts at gentle diuresis as tolerated by hemodynamics and renal function. 3. Monitor tacrolimus level closely given potential interaction with amiodarone. 4. Continue to wean supplemental O2 to maintain oxygen saturations at or above 90%. 5. Continue therapeutic Lovenox. 6. Dietary advancement per speech therapy recommendations. 7. Encourage incentive spirometer use and mobilize patient as tolerated. IMPRESSIONS: 1. Acute hypoxemic respiratory failure secondary to COVID-19 pneumonia Continue current supportive measures. The patient was able to be successfully extubated on January 26. Respiratory status appears to be slowly improving. Continue rate/rhythm control strategy per cardiology recommendations. Continue to attempt gentle diuresis as tolerated by hemodynamics and renal function. Continue therapeutic Lovenox. Dietary advancement per speech therapy recommendations. 2. Acute on chronic kidney disease status post renal transplantation Improving. Defer ongoing hemodialysis need to nephrology. Defer tacrolimus management per nephrology recommendations. Given increasing creatinine this morning, will decrease Lasix to once daily. 3. Paroxysmal atrial fibrillation with RVR The patient's rate/rhythm has been difficult to control. Cardiology is currently following to assist with management. We will plan to continue current rate/rhythm control strategy. 4. Hypertension/hyperlipidemia/elevated troponin Complicates care, management, recovery and prognosis. Physical therapy to continue to work with the patient. Continue Lantus and sliding scale insulin coverage. This note was generated with [employer] dictation software. It may contain incorrect words, spelling, and punctuation that were not noted in checking the note before signing. Inpatient E&M: 54392 [facility] Hosp L3
[2020-01-31] MEDS: Amiodarone 200 MG Tablet PO ×3 (06:14→21:29)
[2020-01-31 06:56] LABS: Bedside Glucose 79 mg/dL (70-110)
[2020-01-31 07:02] LABS: Absolute Neutrophil Count 22.3 X10^3/uL (2.0-7.7); Basophil# 0.05 X10^3/uL; Basophil% 0.2 % (0-1); Eosinophil# 0.19 X10^3/uL; Eosinophils% 0.8 % (0-5); Hematocrit 32.4 % (40-54); Hemoglobin 9.9 g/dL (13.0-16.5); Lymphocyte % 5.7 % (19-41); Mean Corp Hgb Conc 30.6 g/dL (32-36); Mean Corpuscular Hgb 27.8 pg (27.0-32.0); Mean Platelet Vol. 10.3 fl (6.2-12.0); Monocyte# 0.28 X10^3/uL; Monocyte% 1.1 % (0-10); NRBC Flagged by Analyzer 0.1 % (0-5); Neutrophil # 22.33 X10^3/uL (2.7-7.7); Neutrophil % 90.5 % (47-70); POSITIVE DIFFERENTIAL YES; POSITIVE MORPHOLOGY YES; Platelet Count 325 K/mm3 (150-450); RBC Distribution Width CV 13.5 % (11.6-14.6); Red Blood Count 3.56 M/mm3 (4.6-6.2); White Blood Count 24.7 K/mm3 (4.4-11.0)
[2020-01-31 07:03] LABS: Differential Indicated SCAN CRITERIA MET
[2020-01-31 07:17] LABS: ALB/GLOB Ratio 0.3 RATIO (0.9-2.4); AST(SGOT) 66 U/L (15-37); Alanine Aminotransfer ALT/SGPT 76 U/L (16-61); Albumin, Serum 1.7 g/dL (3.2-5.0); Alkaline Phosphatase 84 U/L (45-117); Anion Gap 8 (5-15); BUN 44 mg/dL (7-18); BUN/Creat Ratio 23.8 RATIO (10-20); Chloride 104 mmol/L (98-107); Creatinine, Serum 1.85 mg/dL (0.70-1.30); EST Glomerular Filtration Rate 41 mL/min (>60); Est Glom Filt Rate - Afr Amer 49 mL/min (>60); Estimated Creatinine Clearance 44.16 ml/min; Globulin 5.7 g/dL (2.2-4.2); Glucose 174 mg/dL (74-106); Protein, Total 7.4 g/dL (6.4-8.2); Sodium Level 136 mmol/L (136-145)
--- NOTE | 2020-01-31 07:47 | PN_ITS ---
Patient Problems: Active and Suspected Problems (Last Updated 09/02/18 @ 13:55 by Katheryn Mosqueda) TUCKER (acute kidney injury) (Acute) a fib with rvr (Acute) COVID-19 virus infection (Acute) Acute respiratory failure with hypoxia (Acute) Reason for Visit: Follow-up for COVID-19 pneumonia with acute hypoxic respiratory failure, A. fib with RVR and renal transplant Objective: Patient is more awake and alert. Oxygen requirement has come down, currently 7 L. Intermittent tachypnea. Heart rate in 80s, sinus rhythm Physical exam General: Awake, alert and oriented x3 follows command. HEENT: Atraumatic, PERRLA, EOMI, Normocephalic Oral: No Gingival or Mucosal Lesions/ Ulcerations Neck: Supple, No JVD, Negative Carotid Bruits Lungs: Air entry diminished in bilateral lung bases. Decreased inspiratory effort. Occasional bilateral expiratory rhonchi. Cardiovascular: Sinus rhythm with PVCs. Normal S1, Normal S2, No murmurs Abdomen: Bowel Sounds Present, Soft, Non Tender, Non-Distended : No renal angle tenderness. No suprapubic tenderness. Extremities: No edema, Capillary Refill Less than 3 Seconds Skin: No rashes, No breakdown Musculoskeletal: No Tenderness to Palpation of Joints or Extremities Neurological: Cranial nerves II-XII grossly intact, Deep Tendon Reflexes 2+/4 and Symmetrical, Neuro grossly intact Psych/Mental Status: Flat affect. Vitals/I&O's: Vital Signs Temp Pulse Resp BP Pulse Ox 99.2 F H 89 20 H 121/78 H 96 01/31/20 02:00 01/31/20 06:00 01/31/20 05:00 01/31/20 05:00 01/31/20 05:00 Oxygen Flow Rate (L/min) 8 Oxygen Delivery Method Nasal Cannula Weight: 164 lb 14.492 oz Body Mass Index (BMI) 26.0 Intake and Output for Last 24 Hours 01/29/20 01/30/20 01/31/20 23:59 23:59 23:59 Intake Total 2667.16 / 2677.16 74.33 / 74.33 Output Total 2825 / 2825 1652 / 1652 450 / 450 Balance -157.84 / -147.84 -1577.67 / -1577.67 -450 / -450 Microbiology Past 72 Hours 01/26/20 12:30 Blood Culture (Wb) - Right Forearm Bacteria Detection (PCR) - Final Staphylococcus epidermidis mecA Resistance Marker 01/26/20 12:30 Blood Culture (Wb) - Right Forearm Blood Culture - Preliminary Staphylococcus epidermidis 01/26/20 12:30 Blood Culture (Wb) - Anticubital Right Blood Culture - Preliminary Coag Negative Staph 01/28/20 13:30 Blood Culture (Wb) - Anticubital Right Blood Culture - Preliminary No growth in 48 hours. 01/28/20 13:45 Blood Culture (Wb) - Right Wrist Blood Culture - Preliminary No growth in 48 hours. 01/26/20 13:12 Sputum, Tracheal Aspirate Gram Stain - Final 01/26/20 13:12 Sputum, Tracheal Aspirate Respiratory Culture - Final Presumptive C albicans Laboratory Results 01/30/20 11:08: POC Glucose 130 H 01/30/20 17:18: POC Glucose 107 01/30/20 21:38: POC Glucose 99 01/31/20 00:26: POC Glucose 87 01/31/20 06:10: WBC 24.7 H, RBC 3.56 L, Hgb 9.9 L, Hct 32.4 L, MCV 91.0, MCH 27.8, MCHC 30.6 L, RDW Std Deviation 45.0 H, RDW Coeff of Genaro 13.5, Plt Count 325, MPV 10.3, Immature Gran % (Auto) 1.700 H, Neut % (Auto) 90.5 H, Lymph % (Auto) 5.7 L, Glenn % (Auto) 1.1, Eos % (Auto) 0.8, Baso % (Auto) 0.2, Absolute Neuts (auto) 22.3 H, Absolute Lymphs (auto) 1.40, Nucleated RBC % 0.1 01/31/20 06:10: Sodium 136, Potassium 4.0, Chloride 104, Carbon Dioxide 24.0, Anion Gap 8, BUN 44 H, Creatinine 1.85 H, Estim Creat Clear Calc 44.16, Est GFR (MDRD) Af Amer 49 L, Est GFR (MDRD) Non-Af 41 L, BUN/Creatinine Ratio 23.8 H, Glucose 174 H, Calcium 9.0, Total Bilirubin 0.50, AST 66 H, ALT 76 H, Alkaline Phosphatase 84, Total Protein 7.4, Albumin 1.7 L, Globulin 5.7 H, Albumin/Globulin Ratio 0.3 L 01/31/20 06:11: POC Glucose 79 Current Medications Acetaminophen (Acetaminophen 650 Mg Suppository) 650 mg RECTAL Q6H PRN PRN PRN Reason: Pain Score 1-10/Temp > 100.7 F Last Admin: 01/27/20 21:31 Dose: 650 mg Documented by: Albuterol Sulfate (Albuterol 2.5 Mg/3 Ml Vial.Neb.) 2.5 mg INHALATION Q2H PRN PRN PRN Reason: WHEEZING Amiodarone HCl (Amiodarone 200 Mg Tablet) 200 mg PO TID [facility], [facility]1983 Stop: 02/04/20 23:55 Last Admin: 01/31/20 06:14 Dose: 200 mg Documented by: Amiodarone HCl (Amiodarone 200 Mg Tablet) 200 mg PO BID [facility], [facility]1983 Stop: 02/18/20 22:01 Amiodarone HCl (Amiodarone 200 Mg Tablet) 200 mg PO DAILY [facility], [facility]1983 Aspirin (Aspirin 81 Mg Tab.Chew) 81 mg GT DAILY [facility], [facility]1983 Last Admin: 01/30/20 09:59 Dose: 81 mg Documented by: Enoxaparin Sodium (Enoxaparin 80 Mg/0.8 Ml Syringe) 70 mg SC Q12 [facility], [facility]1983 Last Admin: 01/30/20 21:46 Dose: 70 mg Documented by: Furosemide (Furosemide 40 Mg/4 Ml Vial) 40 mg IV 1000,1700 [facility], [facility] Last Admin: 01/30/20 17:53 Dose: 40 mg Documented by: Sodium Chloride () 250 mls @ 15 mls/hr IV .[id number] PRN PRN Reason: Saline Flush Last Admin: 01/29/20 09:47 Dose: 15 mls/hr Documented by: Sodium Chloride () 250 mls @ 15 mls/hr IV .[id number] PRN PRN Reason: Additional IVPB Infusion Diltiazem HCl 125 mg/ Dextrose 125 mls @ 5 mls/hr IV .Q25H [facility], [facility]; Protocol Last Admin: 01/30/20 07:05 Dose: 5 mg/hr, 5 mls/hr Documented by: Vancomycin IV Pharmacy to Dose (1 ea/ Sodium Chloride) 500 mls @ 250 mls/hr IV PRN PRN; Protocol PRN Reason: Rx to Dose Vancomycin HCl 750 mg/ Sodium (Chloride) 265 mls @ 250 mls/hr IV Q12H [facility] Last Admin: 01/30/20 20:15 Dose: 250 mls/hr Documented by: Insulin Glargine (Insulin Glargine 100 Units/Ml Pen) 10 units SC BID [facility] Last Admin: 01/30/20 21:41 Dose: 10 u Documented by: Insulin Human Lispro (Insulin Lispro 100 Unit/Ml Insuln.Pen) 0 unit SC Q6 [facility], [facility]; Protocol Last Admin: 01/31/20 06:13 Dose: Not Given Documented by: Metoprolol Tartrate (Metoprolol Tartrate 100 Mg Tablet) 100 mg PO BID [facility] Last Admin: 01/30/20 21:42 Dose: 100 mg Documented by: Ondansetron HCl (Ondansetron 4 Mg/2 Ml Vial) 4 mg IV Q8H PRN PRN PRN Reason: NAUSEA/VOMITING Pantoprazole Sodium (Pantoprazole Sodium 40 Mg Tablet) 40 mg PO BID [facility] Last Admin: 01/30/20 21:50 Dose: 40 mg Documented by: Prednisone (Prednisone 5 Mg Tablet) 7.5 mg PO DAILY [facility] Last Admin: 01/30/20 10:00 Dose: 7.5 mg Documented by: Senna/Docusate Sodium (Senna/Docusate Sodium 1 Tablet) 2 tablet PO BID [facility]1983 Last Admin: 01/30/20 21:46 Dose: 2 tablet Documented by: Sodium Chloride (0.9% Saline Lock 10 Ml Syringe) 10 - 40 ml IV UD PRN PRN Reason: SALINE FLUSH Last Admin: 01/29/20 17:26 Dose: 10 ml Documented by: Tacrolimus (Tacrolimus 0.5 Mg Capsule) 0.5 mg GT BID [facility] Last Admin: 01/30/20 21:47 Dose: 0.5 mg Documented by: STROKE Vital Signs/Narrative: Vital Signs Pulse Resp BP Pulse Ox 01/31/20 06:00 89 01/31/20 05:00 89 20 H 121/78 H 96 01/31/20 04:00 90 21 H 135/83 H 97 Medical Necessity - Tobacco Use Smoking Status: Former smoker Tobacco Use: Non-smoker Assessment/Plan All Active Problems (Last Updated 09/02/18 @ 13:55 by Katheryn Mosqueda) TUCKER (acute kidney injury) (Acute) a fib with rvr (Acute) COVID-19 virus infection (Acute) Acute respiratory failure with hypoxia (Acute) This is a 54 years old male patient presented to the emergency room because of shortness of breath, found to have COVID-19 pneumonia and his pulse ox dropped while patient was in the ED, needed to be intubated and started on mechanical ventilation. After admission, he developed TUCKER on CKD stage III requiring hemodialysis as well as new onset A. fib/flutter with RVR. #1 Acute hypoxic respiratory failure secondary to acute bilateral COVID-19 pneumonia, with coagulase-negative staph, MRSE bacteremia: Patient has high D- dimer 4.26 and is on IV heparin drip. Patient completed 5 days of remdesivir. On IV Decadron. Chest x-ray showed extensive multilobar consolidation suggesting pneumonia. Patient was on mechanical ventilator which was extubated on 01/26 and currently on 40% FiO2 AIR VO. Gram stain of tracheal aspirate shows rare gram-positive cocci in clusters. Previous respiratory culture reported very rare mixed normal respiratory chevy. On IV cefepime Comanagement by aviation maintenance technician and ID. 01/27: A. fib with RVR, difficult to control heart rate: Dr. Uribe was consulted and saw the patient yesterday. Currently on amiodarone and diltiazem drip. Metoprolol 50 mg p.o. twice daily. Patient also had total digoxin 750 mcg IV yesterday. On IV drip Heparin 01/28: Currently in sinus rhythm. Cardiology follow-up appreciated. Amiodarone drip is transition to oral. Cardizem drip is gradually weaned off and metoprolol dose increased 200 mg p.o. twice daily. On vancomycin and cefepime. Blood culture coagulase negative staph. Completed 5 days of remdesivir. On therapeutic Lovenox. Leukocytosis. Patient is on prednisone for history of renal transplant. 01/29: Blood culture reported as a staph epidermidis, mec A resistance. On oxygen support. Still hypoxic and short of breath 01/30: ID recommendation followed. Continue vancomycin. Cefepime discontinued. Blood cultures x2 coagulase-negative staph, MRSE 2. Abnormal cardiac enzymes: Likely due to demand ischemia. EKG without acute segment changes. 3. Acute kidney injury on top of stage III chronic kidney disease: In the setting of history of renal transplant. Status post hemodialysis x2. Seen by supervisor engine assembly. No need for dialysis today. As per transplant supervisor engine assembly, tacrolimus resumed at lower dose 0.5 mg twice daily. Diuretic as needed. K4.6. BUN/creatinine 65/1.36, improving trend. 01/27: Serum creatinine 1.49, estimated creatinine clearance about 50 mils per minute. Serum creatinine is improving. Hold for dialysis as per supervisor engine assembly. Tacrolimus level tomorrow a.m as patient is on amiodarone which is Dr. Interaction with tacrolimus. 01/28: BUN/creatinine stable. Electrolytes in normal limit. Good urine output 3500 mL on 01/27. Negative fluid balance 1.6 L. On Lasix. 01/29: BUN/creatinine has plateaued. 01/30: Tacrolimus level 1.0 low, supervisor engine assembly input probably increase the dose to 1 mg twice daily. BUN/creatinine went up 44/1.85 probably diuretic effect/fluid shift. Lasix dose decreased to 40 mg daily. #5 new onset atrial flutter/fibrillation: Currently sinus rhythm. Heart rate in 90s with intermittent 117/min today, he went back into A. fib with RVR, receiving IV amiodarone bolus. Now, he is back in sinus rhythm, blood pressure is borderline. He is also on metoprolol. On IV heparin drip for anticoagulation. 01/29: Currently in sinus rhythm. On amiodarone. 01/30: Heart rate is controlled. #6 hypertension: Currently blood pressure borderline but stable.. Antihypertensive medications held. #7 hyperlipidemia: Statins held. #8 DVT prophylaxis: Remained on IV heparin drip. Clinical Impression(s) from Imaging Studies Chest X-Ray 01/18/20 17:00 IMPRESSION: 1. Extensive multilobar airspace disease suggesting pneumonia, including viral causes. Chest X-Ray 01/26/20 12:09 IMPRESSION: Extensive bilateral airspace opacities increase in the right lung when compared to prior study. Microbiology Past 72 Hours 01/26/20 12:30 Blood Culture (Wb) - Right Forearm Bacteria Detection (PCR) - Final Staphylococcus epidermidis mecA Resistance Marker 01/26/20 12:30 Blood Culture (Wb) - Right Forearm Blood Culture - Prelim inary Staphylococcus epidermidis 01/26/20 12:30 Blood Culture (Wb) - Anticubital Right Blood Culture - Preliminary Coag Negative Staph 01/28/20 13:30 Blood Culture (Wb) - Anticubital Right Blood Culture - Preliminary No growth in 48 hours. 01/28/20 13:45 Blood Culture (Wb) - Right Wrist Blood Culture - Preliminary No growth in 48 hours. 01/26/20 13:12 Sputum, Tracheal Aspirate Gram Stain - Final 01/26/20 13:12 Sputum, Tracheal Aspirate Respiratory Culture - Final Presumptive C albicans Laboratory Results 01/28/20 05:02: Tacrolimus 1.0 L 01/30/20 11:08: POC Glucose 130 H 01/30/20 17:18: POC Glucose 107 01/30/20 21:38: POC Glucose 99 01/31/20 00:26: POC Glucose 87 01/31/20 06:10: WBC 24.7 H, RBC 3.56 L, Hgb 9.9 L, Hct 32.4 L, MCV 91.0, MCH 27.8, MCHC 30.6 L, RDW Std Deviation 45.0 H, RDW Coeff of Genaro 13.5, Plt Count 325, MPV 10.3, Immature Gran % (Auto) 1.700 H, Neut % (Auto) 90.5 H, Lymph % (Auto) 5.7 L, Glenn % (Auto) 1.1, Eos % (Auto) 0.8, Baso % (Auto) 0.2, Absolute Neuts (auto) 22.3 H, Absolute Lymphs (auto) 1.40, Nucleated RBC % 0.1, Differential Comment SCANNED, Platelet Estimate ADEQUATE, Hypochromasia 2+ 01/31/20 06:10: Sodium 136, Potassium 4.0, Chloride 104, Carbon Dioxide 24.0, Anion Gap 8, BUN 44 H, Creatinine 1.85 H, Estim Creat Clear Calc 44.16, Est GFR (MDRD) Af Amer 49 L, Est GFR (MDRD) Non-Af 41 L, BUN/Creatinine Ratio 23.8 H, Glucose 174 H, Calcium 9.0, Total Bilirubin 0.50, AST 66 H, ALT 76 H, Alkaline Phosphatase 84, Total Protein 7.4, Albumin 1.7 L, Globulin 5.7 H, Albumin/Globulin Ratio 0.3 L 01/31/20 06:11: POC Glucose 79 Inpatient E&M: [id number] Subs Hosp L3
[2020-01-31 08:02] LABS: Differential Comment SCANNED; Hypochromasia 2+; Platelet Estimate ADEQUATE (ADEQ)
[2020-01-31] MEDS: Furosemide 40 MG/4 ML Vial IV (08:41)
[2020-01-31] MEDS: Aspirin 81 MG TAB.CHEW GT (08:43)
[2020-01-31] MEDS: Enoxaparin 80 MG/0.8 ML Syringe 70 MG SC ×2 (08:43→21:30)
[2020-01-31] MEDS: predniSONE 5 MG Tablet 7.5 MG PO (08:43)
[2020-01-31] MEDS: Tacrolimus 0.5 MG Capsule GT (08:43)
[2020-01-31] MEDS: Pantoprazole Sodium 40 MG Tablet PO ×2 (08:43→21:30)
[2020-01-31] MEDS: Metoprolol Tartrate 100 MG Tablet PO ×2 (08:43→21:29)
--- NOTE | 2020-01-31 09:55 | DIALYSIS ---
No dialysis today per Dr. Wagoner. Will remove patient from dialysis schedule. Nephrology will continue to follow.
[2020-01-31 17:11] LABS: Bedside Glucose 71 mg/dL (70-110)
[2020-01-31 17:20] LABS: Bedside Glucose 111 mg/dL (70-110)
[2020-01-31] MEDS: Tacrolimus 0.5 MG Capsule 1 MG PO (21:29)
--- NOTE | 2020-01-31 21:31 | PCM.RX.CS ---
Consult Pharmacy has been consulted to manage selected antiobiotic: Vancomycin Type of Consult: Follow-up Labs: Sodium 136 mmol/L (136-145) 01/31/20 06:10 Potassium 4.0 mmol/L (3.5-5.1) 01/31/20 06:10 Chloride 104 mmol/L (98-107) 01/31/20 06:10 Carbon Dioxide 24.0 mmol/L (21.0-32.0) 01/31/20 06:10 Anion Gap 8 (5-15) 01/31/20 06:10 BUN 44 mg/dL (7-18) H 01/31/20 06:10 Creatinine 1.85 mg/dL (0.70-1.30) H 01/31/20 06:10 Est GFR (MDRD) Af Amer 49 mL/min (>60) L 01/31/20 06:10 Est GFR (MDRD) Non-Af 41 mL/min (>60) L 01/31/20 06:10 BUN/Creatinine Ratio 23.8 RATIO (10-20) H 01/31/20 06:10 Glucose 174 mg/dL (74-106) H 01/31/20 06:10 Vancomycin Trough 26.0 ug/mL (5.0-15.0) H 01/31/20 19:20 Microbiology: Microbiology 01/26/20 12:30 Blood Culture (Wb) - Right Forearm Bacteria Detection (PCR) - Final Staphylococcus epidermidis mecA Resistance Marker 01/26/20 12:30 Blood Culture (Wb) - Right Forearm Blood Culture - Preliminary Staphylococcus epidermidis 01/26/20 12:30 Blood Culture (Wb) - Anticubital Right Blood Culture - Preliminary Coag Negative Staph 01/28/20 13:30 Blood Culture (Wb) - Anticubital Right Blood Culture - Preliminary No growth in 48 hours. 01/28/20 13:45 Blood Culture (Wb) - Right Wrist Blood Culture - Preliminary No growth in 48 hours. 01/26/20 13:12 Sputum, Tracheal Aspirate Gram Stain - Final 01/26/20 13:12 Sputum, Tracheal Aspirate Respiratory Culture - Final Presumptive C albicans 01/18/20 16:25 Blood Culture (Wb) - Anticubital Left Blood Culture - Final No growth in 5 days. 01/18/20 16:36 Blood Culture (Wb) - Left Forearm Blood Culture - Final No growth in 5 days. 01/19/20 01:45 Sputum, Induced/Lukens Gram Stain - Final 01/19/20 01:45 Sputum, Induced/Lukens Respiratory Culture - Final Goal Trough: 15-20 mcg/mL Pharmacy Plan for Drug Dosing: Pharmacy Service will continue to monitor and adjust dosing as required. TROUGH 26 HOLD DOSE AND DRAW TROUGH @0630 ON 01/31 AND REEVALUATE Follow-Up Labs: Trough Vancomycin Labs to be done on [date and time ordered]: 01/31 @ 0630
[2020-01-31 23:20] LABS: Bedside Glucose 101 mg/dL (70-110)
[2020-02-01] VITALS (20 sets, daily range): BP systolic 99–133; BP diastolic 60–75; PULSE 81–99; RESP 20–26; TEMP 36.5–37.2; O2SAT 93–98
[2020-02-01] MEDS: Acetaminophen 325 MG Tablet 650 MG PO (01:57)
--- NOTE | 2020-02-01 05:55 | PCM.PN.PUL ---
Patient Problems: Active and Suspected Problems (Last Updated 09/02/18 @ 13:55 by Katheryn Mosqueda) TUCKER (acute kidney injury) (Acute) a fib with rvr (Acute) COVID-19 virus infection (Acute) Acute respiratory failure with hypoxia (Acute) Subjective: The patient was seen and examined at the bedside this morning. Events from the last 24 hours have been reviewed. The patient is currently afebrile, hemodynamically stable and maintaining appropriate oxygen saturations on 8 L/min via nasal cannula. The patient has remained clinically stable following transfer out of the intensive care unit yesterday. The patient is currently documented to be overall net -3.8 L for the hospital admission. Objective: The patient's most recent lab work, culture data and imaging studies have all been personally reviewed. Surface echocardiogram from November 2018 revealed normal LV size with an ejection fraction of 55%. Pulmonary artery systolic pressure was estimated to be 25 to 30 mmHg. Coronavirus testing was positive on January 01. Sputum and blood cultures have shown no growth to date. - Physical Exam Vitals/I&O's: Vital Signs Temp Pulse Resp BP Pulse Ox 97.7 F L 87 20 H 133/66 H 97 02/01/20 03:57 02/01/20 03:57 02/01/20 03:57 02/01/20 03:57 02/01/20 03:57 Oxygen Flow Rate (L/min) 8 Oxygen Delivery Method Nasal Cannula Weight: 164 lb 14.492 oz Body Mass Index (BMI) 26.0 Intake and Output for Last 24 Hours 01/30/20 01/31/20 02/01/20 23:59 23:59 23:59 Intake Total 589.33 / 589.33 1468.08 / 1468.08 100 / 100 Output Total 1652 / 1652 2049 / 2049 Balance -1062.67 / -1062.67 -581.92 / -581.92 100 / 100 General: Alert, Cooperative, No apparent distress HEENT: Atraumatic, Normocephalic Oral: No Gingival or Mucosal Lesions/ Ulcerations Neck: Supple, No Nodes, Trachea Midline Lungs: No rhonchi, No wheeze, No rales, Diminished Cardiovascular: Regular rate, Regular Rhythm, Normal S1, Normal S2 Abdomen: Bowel Sounds Present, Soft, Non Tender Extremities: No clubbing, No cyanosis, No edema Skin: - - No significant change from previous. Musculoskeletal: No Tenderness to Palpation of Joints or Extremities Lymphatic: No Cervical, Supraclavicular, or Inguinal Adenopathy Neurological: Neuro grossly intact Psych/Mental Status: Flat Affect Labs (Last 48 Hours) 01/28/20 01/30/20 01/30/20 05:02 06:25 06:25 WBC 19.7 H RBC 3.46 L Hgb 9.6 L Hct 31.6 L MCV 91.3 MCH 27.7 MCHC 30.4 L RDW Std Deviation 45.1 H RDW Coeff of Genaro 13.8 Plt Count 280 MPV 10.1 Immature Gran % (Auto) 1.600 H Neut % (Auto) 90.0 H Lymph % (Auto) 5.8 L [place] % (Auto) 1.4 Eos % (Auto) 1.0 Baso % (Auto) 0.2 Absolute Neuts (auto) 17.7 H Absolute Lymphs (auto) 1.14 Nucleated RBC % 0.2 Differential Comment Platelet Estimate Hypochromasia Sodium Potassium Chloride Carbon Dioxide Anion Gap BUN Creatinine Estim Creat Clear Calc Est GFR (MDRD) Af Amer Est GFR (MDRD) Non-Af BUN/Creatinine Ratio Glucose Calcium Total Bilirubin AST ALT Alkaline Phosphatase Total Protein Albumin Globulin Albumin/Globulin Ratio Vancomycin Trough 15.3 H Tacrolimus 1.0 L POC Glucose 01/30/20 01/30/20 01/30/20 06:25 06:34 11:08 WBC RBC Hgb Hct MCV MCH MCHC RDW Std Deviation RDW Coeff of Genaro Plt Count MPV Immature Gran % (Auto) Neut % (Auto) Lymph % (Auto) [place] % (Auto) Eos % (Auto) Baso % (Auto) Absolute Neuts (auto) Absolute Lymphs (auto) Nucleated RBC % Differential Comment Platelet Estimate Hypochromasia Sodium 141 Potassium 3.7 Chloride 107 Carbon Dioxide 27.0 Anion Gap 7 BUN 33 H Creatinine 1.44 H Estim Creat Clear Calc 56.74 Est GFR (MDRD) Af Amer 66 Est GFR (MDRD) Non-Af 54 L BUN/Creatinine Ratio 22.9 H Glucose 88 Calcium 9.0 Total Bilirubin AST ALT Alkaline Phosphatase Total Protein Albumin Globulin Albumin/Globulin Ratio Vancomycin Trough Tacrolimus POC Glucose 95 130 H 01/30/20 01/30/20 01/31/20 17:18 21:38 00:26 WBC RBC Hgb Hct MCV MCH MCHC RDW Std Deviation RDW Coeff of Genaro Plt Count MPV Immature Gran % (Auto) Neut % (Auto) Lymph % (Auto) [place] % (Auto) Eos % (Auto) Baso % (Auto) Absolute Neuts (auto) Absolute Lymphs (auto) Nucleated RBC % Differential Comment Platelet Estimate Hypochromasia Sodium Potassium Chloride Carbon Dioxide Anion Gap BUN Creatinine Estim Creat Clear Calc Est GFR (MDRD) Af Amer Est GFR (MDRD) Non-Af BUN/Creatinine Ratio Glucose Calcium Total Bilirubin AST ALT Alkaline Phosphatase Total Protein Albumin Globulin Albumin/Globulin Ratio Vancomycin Trough Tacrolimus POC Glucose 107 99 87 01/31/20 01/31/20 01/31/20 06:10 06:10 06:11 WBC 24.7 H RBC 3.56 L Hgb 9.9 L Hct 32.4 L MCV 91.0 MCH 27.8 MCHC 30.6 L RDW Std Deviation 45.0 H RDW Coeff of Genaro 13.5 Plt Count 325 MPV 10.3 Immature Gran % (Auto) 1.700 H Neut % (Auto) 90.5 H Lymph % (Auto) 5.7 L [place] % (Auto) 1.1 Eos % (Auto) 0.8 Baso % (Auto) 0.2 Absolute Neuts (auto) 22.3 H Absolute Lymphs (auto) 1.40 Nucleated RBC % 0.1 Differential Comment SCANNED Platelet Estimate ADEQUATE Hypochromasia 2+ Sodium 136 Potassium 4.0 Chloride 104 Carbon Dioxide 24.0 Anion Gap 8 BUN 44 H Creatinine 1.85 H Estim Creat Clear Calc 44.16 Est GFR (MDRD) Af Amer 49 L Est GFR (MDRD) Non-Af 41 L BUN/Creatinine Ratio 23.8 H Glucose 174 H Calcium 9.0 Total Bilirubin 0.50 AST 66 H ALT 76 H Alkaline Phosphatase 84 Total Protein 7.4 Albumin 1.7 L Globulin 5.7 H Albumin/Globulin Ratio 0.3 L Vancomycin Trough Tacrolimus POC Glucose 79 01/31/20 01/31/20 01/31/20 12:20 17:11 19:20 WBC RBC Hgb Hct MCV MCH MCHC RDW Std Deviation RDW Coeff of Genaro Plt Count MPV Immature Gran % (Auto) Neut % (Auto) Lymph % (Auto) [place] % (Auto) Eos % (Auto) Baso % (Auto) Absolute Neuts (auto) Absolute Lymphs (auto) Nucleated RBC % Differential Comment Platelet Estimate Hypochromasia Sodium Potassium Chloride Carbon Dioxide Anion Gap BUN Creatinine Estim Creat Clear Calc Est GFR (MDRD) Af Amer Est GFR (MDRD) Non-Af BUN/Creatinine Ratio Glucose Calcium Total Bilirubin AST ALT Alkaline Phosphatase Total Protein Albumin Globulin Albumin/Globulin Ratio Vancomycin Trough 26.0 H Tacrolimus POC Glucose 71 111 H 01/31/20 22:44 WBC RBC Hgb Hct MCV MCH MCHC RDW Std Deviation RDW Coeff of Genaro Plt Count MPV Immature Gran % (Auto) Neut % (Auto) Lymph % (Auto) [place] % (Auto) Eos % (Auto) Baso % (Auto) Absolute Neuts (auto) Absolute Lymphs (auto) Nucleated RBC % Differential Comment Platelet Estimate Hypochromasia Sodium Potassium Chloride Carbon Dioxide Anion Gap BUN Creatinine Estim Creat Clear Calc Est GFR (MDRD) Af Amer Est GFR (MDRD) Non-Af BUN/Creatinine Ratio Glucose Calcium Total Bilirubin AST ALT Alkaline Phosphatase Total Protein Albumin Globulin Albumin/Globulin Ratio Vancomycin Trough Tacrolimus POC Glucose 101 Microbiology 01/26/20 12:30 Blood Culture (Wb) - Right Forearm Bacteria Detection (PCR) - Final Staphylococcus epidermidis mecA Resistance Marker 01/26/20 12:30 Blood Culture (Wb) - Right Forearm Blood Culture - Preliminary Staphylococcus epidermidis 01/26/20 12:30 Blood Culture (Wb) - Anticubital Right Blood Culture - Preliminary Coag Negative Staph 01/28/20 13:30 Blood Culture (Wb) - Anticubital Right Blood Culture - Preliminary No growth in 48 hours. 01/28/20 13:45 Blood Culture (Wb) - Right Wrist Blood Culture - Preliminary No growth in 48 hours. Clinical Impression(s) from Imaging Studies Chest X-Ray 01/18/20 17:00 IMPRESSION: 1. Extensive multilobar airspace disease suggesting pneumonia, including viral causes. Electronically Signed: Tyrone Borrero MD ([facility]) at 17:22 EST , Service support , Chest X-Ray 01/18/20 20:40 KUB X-Ray 01/23/20 00:01 IMPRESSION: 1. Appropriate positioning of supportive devices 2. Normal bowel gas pattern Electronically Signed: Jonathan Aguilar MD at 1:57 EST Tel , Service support , Chest X-Ray 01/26/20 12:09 IMPRESSION: Extensive bilateral airspace opacities increase in the right lung when compared to prior study. at 2329 Reported and signed by: Macrina Herrmann DO Electronically Signed: Macrina Herrmann DO at 23:28 EST Tel , Service support , Chest X-Ray 01/28/20 08:50 IMPRESSION: Minimal improvement in the diffuse bilateral airspace disease. The endotracheal tube and orogastric tube have been removed. Electronically Signed: Richard Pérez, at 9:30 EST , Service support , Current Medications Acetaminophen (Acetaminophen 325 Mg Tablet) 650 mg PO Q6H PRN PRN PRN Reason: Pain Score 1-10 Last Admin: 02/01/20 01:57 Dose: 650 mg Documented by: Albuterol Sulfate (Albuterol 2.5 Mg/3 Ml Vial.Neb.) 2.5 mg INHALATION Q2H PRN PRN PRN Reason: WHEEZING Amiodarone HCl (Amiodarone 200 Mg Tablet) 200 mg PO TID [facility] Stop: 02/04/20 23:55 Last Admin: 01/31/20 21:29 Dose: 200 mg Documented by: Amiodarone HCl (Amiodarone 200 Mg Tablet) 200 mg PO BID [facility] Stop: 02/18/20 22:01 Amiodarone HCl (Amiodarone 200 Mg Tablet) 200 mg PO DAILY [facility] Aspirin (Aspirin 81 Mg Tab.Chew) 81 mg GT DAILY [facility] Last Admin: 01/31/20 08:43 Dose: 81 mg Documented by: Enoxaparin Sodium (Enoxaparin 80 Mg/0.8 Ml Syringe) 70 mg SC Q12 [facility] Last Admin: 01/31/20 21:30 Dose: 70 mg Documented by: Furosemide (Furosemide 40 Mg/4 Ml Vial) 40 mg IV DAILY [facility] Last Admin: 01/31/20 08:41 Dose: 40 mg Documented by: Sodium Chloride () 250 mls @ 15 mls/hr IV .[id number] PRN PRN Reason: Saline Flush Last Infusion: 01/31/20 19:30 Dose: 0 mls/hr Documented by: Sodium Chloride () 250 mls @ 15 mls/hr IV .[id number] PRN PRN Reason: Additional IVPB Infusion Diltiazem HCl 125 mg/ Dextrose 125 mls @ 5 mls/hr IV .Q25H [facility]; Protocol Last Titration: 02/01/20 04:59 Dose: Infused Documented by: Vancomycin IV Pharmacy to Dose (1 ea/ Sodium Chloride) 500 mls @ 250 mls/hr IV PRN PRN; Protocol PRN Reason: Rx to Dose Insulin Glargine (Insulin Glargine 100 Units/Ml Pen) 10 units SC BID [facility] Last Admin: 01/31/20 22:47 Dose: 10 u Documented by: Insulin Human Lispro (Insulin Lispro 100 Unit/Ml Insuln.Pen) 0 unit SC [facility]; Protocol Metoprolol Tartrate (Metoprolol Tartrate 100 Mg Tablet) 100 mg PO BID [facility] Last Admin: 01/31/20 21:29 Dose: 100 mg Documented by: Ondansetron HCl (Ondansetron 4 Mg/2 Ml Vial) 4 mg IV Q8H PRN PRN PRN Reason: NAUSEA/VOMITING Pantoprazole Sodium (Pantoprazole Sodium 40 Mg Tablet) 40 mg PO BID [facility] Last Admin: 01/31/20 21:30 Dose: 40 mg Documented by: Prednisone (Prednisone 5 Mg Tablet) 7.5 mg PO DAILY [facility] Last Admin: 01/31/20 08:43 Dose: 7.5 mg Documented by: Senna/Docusate Sodium (Senna/Docusate Sodium 1 Tablet) 2 tablet PO BID [facility] Last Admin: 01/31/20 21:30 Dose: Not Given Documented by: Sodium Chloride (0.9% Saline Lock 10 Ml Syringe) 10 - 40 ml IV UD PRN PRN Reason: SALINE FLUSH Last Admin: 01/29/20 17:26 Dose: 10 ml Documented by: Tacrolimus (Tacrolimus 0.5 Mg Capsule) 1 mg PO BID [facility] Last Admin: 01/31/20 21:29 Dose: 1 mg Documented by: Medical Necessity - Tobacco Use Smoking Status: Former smoker Tobacco Use: Non-smoker Assessment/Plan All Active Problems (Last Updated 09/02/18 @ 13:55 by Katheryn Mosqueda) TUCKER (acute kidney injury) (Acute) a fib with rvr (Acute) COVID-19 virus infection (Acute) Acute respiratory failure with hypoxia (Acute) RECOMMENDATIONS: 1. Continue rate/rhythm control strategy per cardiology recommendations. 2. Continue attempts at gentle diuresis as tolerated by hemodynamics and renal function. 3. Monitor tacrolimus level closely given potential interaction with amiodarone. 4. Continue to wean supplemental O2 to maintain oxygen saturations at or above 90%. 5. Continue systemic anticoagulation as ordered. 6. Dietary advancement per speech therapy recommendations. 7. Encourage incentive spirometer use and mobilize patient as tolerated. IMPRESSIONS: 1. Acute hypoxemic respiratory failure secondary to COVID-19 pneumonia Continue current supportive measures. The patient was able to be successfully extubated on January 26. Respiratory status appears to be slowly improving. Continue rate/rhythm control strategy per cardiology recommendations. Continue to attempt gentle diuresis as tolerated by hemodynamics and renal function. Continue therapeutic Lovenox. Dietary advancement per speech therapy recommendations. 2. Acute on chronic kidney disease status post renal transplantation Improving. Defer ongoing hemodialysis need to nephrology. Defer tacrolimus management per nephrology recommendations. Continue diuresis as tolerated by hemodynamics and renal function. 3. Paroxysmal atrial fibrillation with RVR The patient's rate/rhythm has been difficult to control. Cardiology is currently following to assist with management. We will plan to continue current rate/rhythm control strategy. 4. Hypertension/hyperlipidemia/elevated troponin Complicates care, management, recovery and prognosis. Physical therapy to continue to work with the patient. Continue Lantus and sliding scale insulin coverage. This note was generated with [employer] dictation software. It may contain incorrect words, spelling, and punctuation that were not noted in checking the note before signing. Inpatient E&M: 63954 Subs Hosp L2
[2020-02-01] MEDS: Amiodarone 200 MG Tablet PO ×3 (06:36→21:13)
[2020-02-01 07:01] LABS: Bedside Glucose 75 mg/dL (70-110)
--- NOTE | 2020-02-01 07:24 | PN_ITS ---
Patient Problems: Active and Suspected Problems (Last Updated 09/02/18 @ 13:55 by Katheryn Mosqueda) TUCKER (acute kidney injury) (Acute) a fib with rvr (Acute) COVID-19 virus infection (Acute) Acute respiratory failure with hypoxia (Acute) Reason for Visit: Follow-up for acute hypoxic respiratory failure secondary to COVID-19 pneumonia, A. fib and renal transplant Objective: Patient is afebrile. On 8 L of oxygen. Blood pressure and heart rate in normal range. Patient had mild local abdominal wall bleeding/induration hematoma from Lovenox subcu shot Lovenox changed to Eliquis. Patient also on baby aspirin from home, reason unclear but patient denies history of coronary artery disease/TX, stroke or peripheral vascular disease. History of renal transplant. Physical exam Physical exam General: Awake, alert and oriented x3. HEENT: Atraumatic, PERRLA, EOMI, Normocephalic Oral: No Gingival or Mucosal Lesions/ Ulcerations Neck: Supple, No JVD, Negative Carotid Bruits Lungs: Air entry diminished in bilateral lung bases. No crepitation or rhonchi. On 8 L of oxygen Cardiovascular: Sinus rhythm with PVCs. Normal S1, Normal S2, No murmurs Abdomen: Bowel Sounds Present, Soft, Non Tender, Non-Distended : No renal angle tenderness. No suprapubic tenderness. Extremities: No edema, Capillary Refill Less than 3 Seconds Skin: Localized hematoma abdominal wall as mentioned above. No rashes, No breakdown Musculoskeletal: No Tenderness to Palpation of Joints or Extremities Neurological: Cranial nerves II-XII grossly intact, Deep Tendon Reflexes 2+/4 and Symmetrical, Neuro grossly intact Psych/Mental Status: Flat affect. Vitals/I&O's: Vital Signs Temp Pulse Resp BP Pulse Ox 97.7 F L 81 20 H 133/66 H 97 02/01/20 03:57 02/01/20 05:59 02/01/20 03:57 02/01/20 03:57 02/01/20 03:57 Oxygen Flow Rate (L/min) 8 Oxygen Delivery Method Nasal Cannula Weight: 164 lb 14.492 oz Body Mass Index (BMI) 26.0 Intake and Output for Last 24 Hours 01/30/20 01/31/20 02/01/20 23:59 23:59 23:59 Intake Total 589.33 / 589.33 1468.08 / 1468.08 150 / 150 Output Total 1652 / 1652 2049 / 2049 275 / 275 Balance -1062.67 / -1062.67 -581.92 / -581.92 -125 / -125 Microbiology Past 72 Hours 01/26/20 12:30 Blood Culture (Wb) - Right Forearm Bacteria Detection (PCR) - Final Staphylococcus epidermidis mecA Resistance Marker 01/26/20 12:30 Blood Culture (Wb) - Right Forearm Blood Culture - Final Staphylococcus epidermidis 01/26/20 12:30 Blood Culture (Wb) - Anticubital Right Blood Culture - Preliminary Coag Negative Staph 01/28/20 13:30 Blood Culture (Wb) - Anticubital Right Blood Culture - Preliminary No growth in 48 hours. 01/28/20 13:45 Blood Culture (Wb) - Right Wrist Blood Culture - Preliminary No growth in 48 hours. 01/26/20 13:12 Sputum, Tracheal Aspirate Gram Stain - Final 01/26/20 13:12 Sputum, Tracheal Aspirate Respiratory Culture - Final Presumptive C albicans Laboratory Results 01/28/20 05:02: Tacrolimus 1.0 L 01/31/20 06:10: Differential Comment SCANNED, Platelet Estimate ADEQUATE, Hypochromasia 2+ 01/31/20 12:20: POC Glucose 71 01/31/20 17:11: POC Glucose 111 H 01/31/20 19:20: Vancomycin Trough 26.0 H 01/31/20 22:44: POC Glucose 101 02/01/20 06:30: Random Vancomycin Pending 02/01/20 06:35: POC Glucose 75 Current Medications Acetaminophen (Acetaminophen 325 Mg Tablet) 650 mg PO Q6H PRN PRN PRN Reason: Pain Score 1-10 Last Admin: 02/01/20 01:57 Dose: 650 mg Documented by: Albuterol Sulfate (Albuterol 2.5 Mg/3 Ml Vial.Neb.) 2.5 mg INHALATION Q2H PRN PRN PRN Reason: WHEEZING Amiodarone HCl (Amiodarone 200 Mg Tablet) 200 mg PO TID [facility] Stop: 02/04/20 23:55 Last Admin: 02/01/20 06:36 Dose: 200 mg Documented by: Amiodarone HCl (Amiodarone 200 Mg Tablet) 200 mg PO BID [facility] Stop: 02/18/20 22:01 Amiodarone HCl (Amiodarone 200 Mg Tablet) 200 mg PO DAILY [facility] Aspirin (Aspirin 81 Mg Tab.Chew) 81 mg GT DAILY [facility] Last Admin: 01/31/20 08:43 Dose: 81 mg Documented by: Dextrose (Dextrose 50%-Water 25 Gm/50 Ml Disp.Syrin) 0 gm IV X1 PRN; Protocol PRN Reason: Hypoglycemia Enoxaparin Sodium (Enoxaparin 80 Mg/0.8 Ml Syringe) 70 mg SC Q12 [facility] Last Admin: 01/31/20 21:30 Dose: 70 mg Documented by: Furosemide (Furosemide 40 Mg/4 Ml Vial) 40 mg IV DAILY [facility] Last Admin: 01/31/20 08:41 Dose: 40 mg Documented by: Glucagon (Glucagon 1 Mg/Ml Syringe) 1 mg IM .X1 PRN PRN Reason: Hypoglycemia Sodium Chloride () 250 mls @ 15 mls/hr IV .[id number] PRN PRN Reason: Saline Flush Last Infusion: 01/31/20 19:30 Dose: 0 mls/hr Documented by: Sodium Chloride () 250 mls @ 15 mls/hr IV .[id number] PRN PRN Reason: Additional IVPB Infusion Vancomycin IV Pharmacy to Dose (1 ea/ Sodium Chloride) 500 mls @ 250 mls/hr IV PRN PRN; Protocol PRN Reason: Rx to Dose Insulin Glargine (Insulin Glargine 100 Units/Ml Pen) 10 units SC BID [facility] Last Admin: 01/31/20 22:47 Dose: 10 u Documented by: Insulin Human Lispro (Insulin Lispro 100 Unit/Ml Insuln.Pen) 0 unit SC [facility]; Protocol Last Admin: 02/01/20 06:36 Dose: Not Given Documented by: Insulin Human Lispro (Insulin Lispro 100 Unit/Ml Insuln.Pen) 0 unit SC [facility]; Protocol Metoprolol Tartrate (Metoprolol Tartrate 100 Mg Tablet) 100 mg PO BID [facility] Last Admin: 01/31/20 21:29 Dose: 100 mg Documented by: Ondansetron HCl (Ondansetron 4 Mg/2 Ml Vial) 4 mg IV Q8H PRN PRN PRN Reason: NAUSEA/VOMITING Pantoprazole Sodium (Pantoprazole Sodium 40 Mg Tablet) 40 mg PO BID [facility] Last Admin: 01/31/20 21:30 Dose: 40 mg Documented by: Prednisone (Prednisone 5 Mg Tablet) 7.5 mg PO DAILY [facility] Last Admin: 01/31/20 08:43 Dose: 7.5 mg Documented by: Senna/Docusate Sodium (Senna/Docusate Sodium 1 Tablet) 2 tablet PO BID [facility] Last Admin: 01/31/20 21:30 Dose: Not Given Documented by: Sodium Chloride (0.9% Saline Lock 10 Ml Syringe) 10 - 40 ml IV UD PRN PRN Reason: SALINE FLUSH Last Admin: 01/29/20 17:26 Dose: 10 ml Documented by: Tacrolimus (Tacrolimus 0.5 Mg Capsule) 1 mg PO BID [facility] Last Admin: 01/31/20 21:29 Dose: 1 mg Documented by: STROKE Vital Signs/Narrative: Vital Signs Temp Pulse Resp BP Pulse Ox 02/01/20 05:59 81 02/01/20 03:57 97.7 F L 87 20 H 133/66 H 97 Medical Necessity - Tobacco Use Smoking Status: Former smoker Tobacco Use: Non-smoker Assessment/Plan All Active Problems (Last Updated 09/02/18 @ 13:55 by Katheryn Mosqueda) TUCKER (acute kidney injury) (Acute) a fib with rvr (Acute) COVID-19 virus infection (Acute) Acute respiratory failure with hypoxia (Acute) This is a 54 years old male patient presented to the emergency room because of shortness of breath, found to have COVID-19 pneumonia and his pulse ox dropped while patient was in the ED, needed to be intubated and started on mechanical ventilation. After admission, he developed TUCKER on CKD stage III requiring hemodialysis as well as new onset A. fib/flutter with RVR. #1 Acute hypoxic respiratory failure secondary to acute bilateral COVID-19 pneumonia, with coagulase-negative staph, MRSE bacteremia: Patient has high D- dimer 4.26 and is on IV heparin drip. Patient completed 5 days of remdesivir. On IV Decadron. Chest x-ray showed extensive multilobar consolidation suggesting pneumonia. Patient was on mechanical ventilator which was extubated on 01/26 and currently on 40% FiO2 AIR VO. Gram stain of tracheal aspirate shows rare gram-positive cocci in clusters. Previous respiratory culture reported very rare mixed normal respiratory chevy. On IV cefepime Comanagement by temporary administrative assistant and ID. 01/27: A. fib with RVR, difficult to control heart rate: Dr. Uribe was consulted and saw the patient yesterday. Currently on amiodarone and diltiazem drip. Metoprolol 50 mg p.o. twice daily. Patient also had total digoxin 750 mcg IV yesterday. On IV drip Heparin 01/28: Currently in sinus rhythm. Cardiology follow-up appreciated. Amiodarone drip is transition to oral. Cardizem drip is gradually weaned off and metoprolol dose increased 200 mg p.o. twice daily. On vancomycin and cefepime. Blood culture coagulase negative staph. Completed 5 days of remdesivir. On therapeutic Lovenox. Leukocytosis. Patient is on prednisone for history of renal transplant. 01/29: Blood culture reported as a staph epidermidis, mec A resistance. On oxygen support. Still hypoxic and short of breath 01/30: ID recommendation followed. Continue vancomycin. Cefepime discontinued. Blood cultures x2 coagulase-negative staph, MRSE 01/31: Continue as above. ID follow-up on Sunday. 2. Abnormal cardiac enzymes: Likely due to demand ischemia. EKG without acute segment changes. 01/31: Patient does not have history of atherosclerotic cardiovascular disease including coronary artery disease/TX, stroke peripheral vascular disease. Troponin 0 0.162, 0.098 intermittent range suggestive demand ischemia. Patient Lovenox is changed to Eliquis for nonvalvular A. fib. Baby aspirin discontinued. 3. Acute kidney injury on top of stage III chronic kidney disease: In the setting of history of renal transplant. Status post hemodialysis x2. Seen by assistant in nursing. No need for dialysis today. As per transplant assistant in nursing, tacrolimus resumed at lower dose 0.5 mg twice daily. Diuretic as needed. K4.6. BUN/creatinine 65/1.36, improving trend. 01/27: Serum creatinine 1.49, estimated creatinine clearance about 50 mils per minute. Serum creatinine is improving. Hold for dialysis as per assistant in nursing. Tacrolimus level tomorrow a.m as patient is on amiodarone which is Dr. Interaction with tacrolimus. 01/28: BUN/creatinine stable. Electrolytes in normal limit. Good urine output 3500 mL on 01/27. Negative fluid balance 1.6 L. On Lasix. 01/29: BUN/creatinine has plateaued. 01/30: Tacrolimus level 1.0 low, assistant in nursing input probably increase the dose to 1 mg twice daily. BUN/creatinine went up 44/1.85 probably diuretic effect/fluid shift. Lasix dose decreased to 40 mg daily. 01/31: Discussed with Dr. Rosales on 01/30. Tacrolimus dose was increased 1 mg twice daily yesterday. Tacrolimus dose on 02/01. BUN/creatinine is elevated 52/1.98 but patient is positive 4 L of fluid balance #5 new onset atrial flutter/fibrillation: Currently sinus rhythm. Heart rate in 90s with intermittent 117/min today, he went back into A. fib with RVR, receiving IV amiodarone bolus. Now, he is back in sinus rhythm, blood pressure is borderline. He is also on metoprolol. On IV heparin drip for anticoagulation. 01/29: Currently in sinus rhythm. On amiodarone. 01/30: Heart rate is controlled. 01/31: On Eliquis. Lovenox discontinued #6 hypertension: Currently blood pressure borderline but stable.. Antihypertensive medications held. #7 hyperlipidemia: Statins held. Patient looks depressed. Started on paroxetine 20 mg daily #8 DVT prophylaxis: Remained on IV heparin drip. Signout: Nephrology follow-up for adjustment of diuretics in view of kidney transplant, positive fluid balance and increasing BUN/creatinine. ID follow-up. Patient will need SNF for prolonged ICU stay. Clinical Impression(s) from Imaging Studies Chest X-Ray 01/18/20 17:00 IMPRESSION: 1. Extensive multilobar airspace disease suggesting pneumonia, including viral causes. Chest X-Ray 01/26/20 12:09 IMPRESSION: Extensive bilateral airspace opacities increase in the right lung when compared to prior study. Microbiology Past 72 Hours 01/26/20 12:30 Blood Culture (Wb) - Anticubital Right Blood Culture - Final Coag Negative Staph 01/26/20 12:30 Blood Culture (Wb) - Right Forearm Bacteria Detection (PCR) - Final Staphylococcus epidermidis mecA Resistance Marker 01/26/20 12:30 Blood Culture (Wb) - Right Forearm Blood Culture - Final Staphylococcus epidermidis 01/28/20 13:30 Blood Culture (Wb) - Anticubital Right Blood Culture - Preliminary No growth in 48 hours. 01/28/20 13:45 Blood Culture (Wb) - Right Wrist Blood Culture - Preliminary No growth in 48 hours. 01/26/20 13:12 Sputum, Tracheal Aspirate Gram Stain - Final 01/26/20 13:12 Sputum, Tracheal Aspirate Respiratory Culture - Final Presumptive C albicans Laboratory Results 01/28/20 05:02: Tacrolimus 1.0 L 01/31/20 12:20: POC Glucose 71 01/31/20 17:11: POC Glucose 111 H 01/31/20 19:20: Vancomycin Trough 26.0 H 01/31/20 22:44: POC Glucose 101 02/01/20 06:30: Random Vancomycin 19.3 H 02/01/20 06:30: WBC 19.5 H, RBC 3.61 L, Hgb 10.3 L, Hct 32.8 L, MCV 90.9, MCH 28.5, MCHC 31.4 L, RDW Std Deviation 44.8 H, RDW Coeff of Genaro 13.6, Plt Count 357, MPV 11.0, Immature Gran % (Auto) 2.900 H, Neut % (Auto) 85.0 H, Lymph % (Auto) 7.9 L, Banner % (Auto) 1.9, Eos % (Auto) 2.0, Baso % (Auto) 0.3, Absolute Neuts (auto) 16.5 H, Absolute Lymphs (auto) 1.54, Nucleated RBC % 0.1 02/01/20 06:30: Sodium 139, Potassium 4.1, Chloride 105, Carbon Dioxide 21.0, Anion Gap 13, BUN 58 H, Creatinine 1.98 H, Estim Creat Clear Calc 41.26, Est GFR (MDRD) Af Amer 45 L, Est GFR (MDRD) Non-Af 38 L, BUN/Creatinine Ratio 29.3 H, Glucose 69 L, Calcium 8.6 02/01/20 06:35: POC Glucose 75 Inpatient E&M: 73529 Subs Hosp L2
[2020-02-01 07:26] LABS: Vancomycin, Random Level 19.3 ug/mL (0.0-15.0)
[2020-02-01 07:48] LABS: Absolute Lymphocyte Count 1.54 X10^3/uL (0.83-4.51); Absolute Neutrophil Count 16.5 X10^3/uL (2.0-7.7); Basophil# 0.05 X10^3/uL; Basophil% 0.3 % (0-1); Eosinophil# 0.39 X10^3/uL; Hematocrit 32.8 % (40-54); Hemoglobin 10.3 g/dL (13.0-16.5); Lymphocyte # 1.54 X10^3/ul (4.0); Lymphocyte % 7.9 % (19-41); Mean Corp Hgb Conc 31.4 g/dL (32-36); Mean Corpuscular Hgb 28.5 pg (27.0-32.0); Mean Corpuscular Volume 90.9 fL (80-94); Monocyte# 0.37 X10^3/uL; Monocyte% 1.9 % (0-10); NRBC Flagged by Analyzer 0.1 % (0-5); Neutrophil # 16.53 X10^3/uL (2.7-7.7); Platelet Count 357 K/mm3 (150-450); RBC Distribution Width CV 13.6 % (11.6-14.6); RBC Distribution Width SD 44.8 fl (35.1-43.9); Red Blood Count 3.61 M/mm3 (4.6-6.2); White Blood Count 19.5 K/mm3 (4.4-11.0)
[2020-02-01 08:08] LABS: Anion Gap 13 (5-15); BUN 58 mg/dL (7-18); BUN/Creat Ratio 29.3 RATIO (10-20); Calcium,Total 8.6 mg/dL (8.5-10.1); Chloride 105 mmol/L (98-107); Creatinine, Serum 1.98 mg/dL (0.70-1.30); EST Glomerular Filtration Rate 38 mL/min (>60); Est Glom Filt Rate - Afr Amer 45 mL/min (>60); Estimated Creatinine Clearance 41.26 ml/min; Glucose 69 mg/dL (74-106); Potassium 4.1 mmol/L (3.5-5.1); Sodium Level 139 mmol/L (136-145)
[2020-02-01] MEDS: Aspirin 81 MG TAB.CHEW GT (08:20)
[2020-02-01] MEDS: predniSONE 5 MG Tablet 7.5 MG PO (08:21)
[2020-02-01] MEDS: Metoprolol Tartrate 100 MG Tablet PO ×2 (08:21→21:12)
[2020-02-01] MEDS: Furosemide 40 MG/4 ML Vial IV (08:21)
[2020-02-01] MEDS: Pantoprazole Sodium 40 MG Tablet PO ×2 (08:22→21:13)
[2020-02-01] MEDS: Senna/Docusate Sodium 1 Tablet 2 TABLET PO ×2 (08:22→21:13)
[2020-02-01] MEDS: Tacrolimus 0.5 MG Capsule 1 MG PO ×2 (08:24→21:13)
[2020-02-01] MEDS: 0.9% Saline Lock 10 ML Syringe IV (08:31)
--- NOTE | 2020-02-01 11:38 | PCM.RX.CS ---
Consult Pharmacy has been consulted to manage selected antiobiotic: Vancomycin Type of Consult: Follow-up Suspected Infection: Bacteremia Labs: Sodium 139 mmol/L (136-145) 02/01/20 06:30 Potassium 4.1 mmol/L (3.5-5.1) 02/01/20 06:30 Chloride 105 mmol/L (98-107) 02/01/20 06:30 Carbon Dioxide 21.0 mmol/L (21.0-32.0) 02/01/20 06:30 Anion Gap 13 (5-15) 02/01/20 06:30 BUN 58 mg/dL (7-18) H 02/01/20 06:30 Creatinine 1.98 mg/dL (0.70-1.30) H 02/01/20 06:30 Est GFR (MDRD) Af Amer 45 mL/min (>60) L 02/01/20 06:30 Est GFR (MDRD) Non-Af 38 mL/min (>60) L 02/01/20 06:30 BUN/Creatinine Ratio 29.3 RATIO (10-20) H 02/01/20 06:30 Glucose 69 mg/dL (74-106) L 02/01/20 06:30 Vancomycin Trough 26.0 ug/mL (5.0-15.0) H 01/31/20 19:20 Random Vancomycin 19.3 ug/mL (0.0-15.0) H 02/01/20 06:30 Microbiology: Microbiology 01/26/20 12:30 Blood Culture (Wb) - Anticubital Right Blood Culture - Final Coag Negative Staph 01/26/20 12:30 Blood Culture (Wb) - Right Forearm Bacteria Detection (PCR) - Final Staphylococcus epidermidis mecA Resistance Marker 01/26/20 12:30 Blood Culture (Wb) - Right Forearm Blood Culture - Final Staphylococcus epidermidis 01/28/20 13:30 Blood Culture (Wb) - Anticubital Right Blood Culture - Preliminary No growth in 48 hours. 01/28/20 13:45 Blood Culture (Wb) - Right Wrist Blood Culture - Preliminary No growth in 48 hours. 01/26/20 13:12 Sputum, Tracheal Aspirate Gram Stain - Final 01/26/20 13:12 Sputum, Tracheal Aspirate Respiratory Culture - Final Presumptive C albicans 01/18/20 16:25 Blood Culture (Wb) - Anticubital Left Blood Culture - Final No growth in 5 days. 01/18/20 16:36 Blood Culture (Wb) - Left Forearm Blood Culture - Final No growth in 5 days. 01/19/20 01:45 Sputum, Induced/Lukens Gram Stain - Final 01/19/20 01:45 Sputum, Induced/Lukens Respiratory Culture - Final Goal Trough: 15-20 mcg/mL Pharmacy Plan for Drug Dosing: VANCOMYCIN LEVEL RECEIVED Current Vancomycin Dose: pt was on 750mg iv q12h. current dose on hold due to elevated trough Number of Doses Received: 1750MG x1, 750mg x2 Vancomycin Level: initial trough was 26, random level on 01/31 was 19.3 Hours Since Last Dose: 23 hours since last dose for the random level Renal Function: 1.98 Renal Function Trend: SrCr increasing Lab/Micro: Vancomycin Plan/Comments: recommend treating patient as if they have a CrCl <20, due to history of Renal Transplant -recommend a x1 dose of 1000mg on 01/31 and check a random level on 02/01. -closely monitor SrCr. due to pt's history of renal transplant, will keep a close eye on increasing SrCr Pending Level: random level 02/01 at 0600 Pharmacy Service will continue to monitor and adjust dosing as required. Follow-Up Labs: Trough Vancomycin - Random 02/01 @ 0600
--- NOTE | 2020-02-01 12:32 | PCM.RX.CS ---
Consult Pharmacy has been consulted to manage selected antiobiotic: Vancomycin Type of Consult: Follow-up Suspected Infection: Bacteremia Labs: Sodium 139 mmol/L (136-145) 02/01/20 06:30 Potassium 4.1 mmol/L (3.5-5.1) 02/01/20 06:30 Chloride 105 mmol/L (98-107) 02/01/20 06:30 Carbon Dioxide 21.0 mmol/L (21.0-32.0) 02/01/20 06:30 Anion Gap 13 (5-15) 02/01/20 06:30 BUN 58 mg/dL (7-18) H 02/01/20 06:30 Creatinine 1.98 mg/dL (0.70-1.30) H 02/01/20 06:30 Est GFR (MDRD) Af Amer 45 mL/min (>60) L 02/01/20 06:30 Est GFR (MDRD) Non-Af 38 mL/min (>60) L 02/01/20 06:30 BUN/Creatinine Ratio 29.3 RATIO (10-20) H 02/01/20 06:30 Glucose 69 mg/dL (74-106) L 02/01/20 06:30 Vancomycin Trough 26.0 ug/mL (5.0-15.0) H 01/31/20 19:20 Random Vancomycin 19.3 ug/mL (0.0-15.0) H 02/01/20 06:30 Microbiology: Microbiology 01/26/20 12:30 Blood Culture (Wb) - Anticubital Right Blood Culture - Final Coag Negative Staph 01/26/20 12:30 Blood Culture (Wb) - Right Forearm Bacteria Detection (PCR) - Final Staphylococcus epidermidis mecA Resistance Marker 01/26/20 12:30 Blood Culture (Wb) - Right Forearm Blood Culture - Final Staphylococcus epidermidis 01/28/20 13:30 Blood Culture (Wb) - Anticubital Right Blood Culture - Preliminary No growth in 48 hours. 01/28/20 13:45 Blood Culture (Wb) - Right Wrist Blood Culture - Preliminary No growth in 48 hours. 01/26/20 13:12 Sputum, Tracheal Aspirate Gram Stain - Final 01/26/20 13:12 Sputum, Tracheal Aspirate Respiratory Culture - Final Presumptive C albicans 01/18/20 16:25 Blood Culture (Wb) - Anticubital Left Blood Culture - Final No growth in 5 days. 01/18/20 16:36 Blood Culture (Wb) - Left Forearm Blood Culture - Final No growth in 5 days. 01/19/20 01:45 Sputum, Induced/Lukens Gram Stain - Final 01/19/20 01:45 Sputum, Induced/Lukens Respiratory Culture - Final Pharmacy Plan for Drug Dosing: DAILY ASSESSMENT Current Vancomcyin Dose: None (on hold) Number of Doses Received: Current Renal Function: SrCr 1.98 Renal Function Trend: SrCr has been increasing (was 1.4 at start of Vancomycin Treatment) Lab/Micro: Any Change in Vanc Plan: spoke with Dr. Jackson over concerns regarding recent renal transplant and increasing SrCr. Gave orders to hold any further doses until tomorrow and check another level tomorrow morning. Pending Level: 02/02/20 at 0600 Pharmacy Service will continue to monitor and adjust dosing as required. Follow-Up Labs: Trough Vancomycin - random level 02/01 at 0600
[2020-02-01 12:36] LABS: Bedside Glucose 234 mg/dL (70-110)
[2020-02-01] MEDS: Paroxetine 20 MG Tablet PO (13:04)
[2020-02-01] MEDS: APIXABAN 5 MG TABLET PO ×2 (13:04→21:13)
--- NOTE | 2020-02-01 13:21 | PCM.PN.BLA ---
Progress Note Patient's vitals and telemetry reviewed. Patient is currently in sinus rhythm. Off Cardizem drip. Continue amiodarone and Eliquis. We will sign off at this time. If we can be of any further assistance please let us know. Patient can follow-up with Dr. Uribe as an outpatient. STROKE Vital Signs/Narrative: Vital Signs Temp Pulse Resp BP Pulse Ox 02/01/20 12:00 97.7 F L 92 20 H 99/60 94 02/01/20 11:00 97
[2020-02-01] MEDS: Insulin Lispro 100 UNIT/ML INSULN.PEN SC ×3 (14:27→21:11)
[2020-02-01 14:35] LABS: Bedside Glucose 253 mg/dL (70-110)
--- NOTE | 2020-02-01 15:39 | PN.RENAL_ITS ---
Patient Problems: Active and Suspected Problems (Last Updated 09/02/18 @ 13:55 by Katheryn Mosqueda) TUCKER (acute kidney injury) (Acute) a fib with rvr (Acute) COVID-19 virus infection (Acute) Acute respiratory failure with hypoxia (Acute) Subjective: more oxygen feels tired Objective: Physical examination deferred to prevent further transmission of Covid and preserve PPE - Physical Exam Vitals/I&O's: Vital Signs Temp Pulse Resp BP Pulse Ox 97.8 F 90 24 H 120/65 93 02/01/20 15:08 02/01/20 15:08 02/01/20 15:08 02/01/20 15:08 02/01/20 15:08 Oxygen Flow Rate (L/min) 6 Oxygen Delivery Method Nasal Cannula Weight: 74.8 kg Body Mass Index (BMI) 26.0 Intake and Output for Last 24 Hours 01/30/20 01/31/20 02/01/20 23:59 23:59 23:59 Intake Total 589.33 / 589.33 1468.08 / 1468.08 510 / 510 Output Total 1652 / 1652 2049 / 0 1025 / 1025 Balance -1062.67 / -1062.67 -581.92 / -581.92 -515 / -515 Microbiology Past 72 Hours 01/26/20 12:30 Blood Culture (Wb) - Anticubital Right Blood Culture - Final Coag Negative Staph 01/26/20 12:30 Blood Culture (Wb) - Right Forearm Bacteria Detection (PCR) - Final Staphylococcus epidermidis mecA Resistance Marker 01/26/20 12:30 Blood Culture (Wb) - Right Forearm Blood Culture - Final Staphylococcus epidermidis 01/28/20 13:30 Blood Culture (Wb) - Anticubital Right Blood Culture - Preliminary No growth in 48 hours. 01/28/20 13:45 Blood Culture (Wb) - Right Wrist Blood Culture - Preliminary No growth in 48 hours. Laboratory Results 01/31/20 12:20: POC Glucose 71 01/31/20 17:11: POC Glucose 111 H 01/31/20 19:20: Vancomycin Trough 26.0 H 01/31/20 22:44: POC Glucose 101 02/01/20 06:30: Random Vancomycin 19.3 H 02/01/20 06:30: WBC 19.5 H, RBC 3.61 L, Hgb 10.3 L, Hct 32.8 L, MCV 90.9, MCH 28.5, MCHC 31.4 L, RDW Std Deviation 44.8 H, RDW Coeff of Genaro 13.6, Plt Count 357, MPV 11.0, Immature Gran % (Auto) 2.900 H, Neut % (Auto) 85.0 H, Lymph % (Auto) 7.9 L, [place] % (Auto) 1.9, Eos % (Auto) 2.0, Baso % (Auto) 0.3, Absolute Neuts (auto) 16.5 H, Absolute Lymphs (auto) 1.54, Nucleated RBC % 0.1 02/01/20 06:30: Sodium 139, Potassium 4.1, Chloride 105, Carbon Dioxide 21.0, Anion Gap 13, BUN 58 H, Creatinine 1.98 H, Estim Creat Clear Calc 41.26, Est GFR (MDRD) Af Amer 45 L, Est GFR (MDRD) Non-Af 38 L, BUN/Creatinine Ratio 29.3 H, Glucose 69 L, Calcium 8.6 02/01/20 06:35: POC Glucose 75 02/01/20 12:05: POC Glucose 234 H 02/01/20 14:22: POC Glucose 253 H Current Medications Acetaminophen (Acetaminophen 325 Mg Tablet) 650 mg PO Q6H PRN PRN PRN Reason: Pain Score 1-10 Last Admin: 02/01/20 01:57 Dose: 650 mg Documented by: Albuterol Sulfate (Albuterol 2.5 Mg/3 Ml Vial.Neb.) 2.5 mg INHALATION Q2H PRN PRN PRN Reason: WHEEZING Amiodarone HCl (Amiodarone 200 Mg Tablet) 200 mg PO TID [facility] Stop: 02/04/20 23:55 Last Admin: 02/01/20 13:05 Dose: 200 mg Documented by: Amiodarone HCl (Amiodarone 200 Mg Tablet) 200 mg PO BID [facility] Stop: 02/18/20 22:01 Amiodarone HCl (Amiodarone 200 Mg Tablet) 200 mg PO DAILY [facility] Apixaban (Apixaban 5 Mg Tablet) 5 mg PO BID [facility] Last Admin: 02/01/20 13:04 Dose: 5 mg Documented by: Dextrose (Dextrose 50%-Water 25 Gm/50 Ml Disp.Syrin) 0 gm IV X1 PRN; Protocol PRN Reason: Hypoglycemia Furosemide (Furosemide 40 Mg/4 Ml Vial) 40 mg IV DAILY [facility] Last Admin: 02/01/20 08:21 Dose: 40 mg Documented by: Glucagon (Glucagon 1 Mg/Ml Syringe) 1 mg IM .X1 PRN PRN Reason: Hypoglycemia Sodium Chloride () 250 mls @ 15 mls/hr IV .[id number] PRN PRN Reason: Saline Flush Last Infusion: 01/31/20 19:30 Dose: 0 mls/hr Documented by: Sodium Chloride () 250 mls @ 15 mls/hr IV .[id number] PRN PRN Reason: Additional IVPB Infusion Vancomycin IV Pharmacy to Dose (1 ea/ Sodium Chloride) 500 mls @ 250 mls/hr IV PRN PRN; Protocol PRN Reason: Rx to Dose Insulin Glargine (Insulin Glargine 100 Units/Ml Pen) 7 units SC BID [facility] Last Admin: 02/01/20 14:29 Dose: 7 u Documented by: Insulin Human Lispro (Insulin Lispro 100 Unit/Ml Insuln.Pen) 0 unit SC ACHS [facility]; Protocol Last Admin: 02/01/20 14:27 Dose: 4 u Documented by: Metoprolol Tartrate (Metoprolol Tartrate 100 Mg Tablet) 100 mg PO BID [facility] Last Admin: 02/01/20 08:21 Dose: 100 mg Documented by: Ondansetron HCl (Ondansetron 4 Mg/2 Ml Vial) 4 mg IV Q8H PRN PRN PRN Reason: NAUSEA/VOMITING Pantoprazole Sodium (Pantoprazole Sodium 40 Mg Tablet) 40 mg PO BID [facility] Last Admin: 02/01/20 08:22 Dose: 40 mg Documented by: Paroxetine HCl (Paroxetine 20 Mg Tablet) 20 mg PO DAILY [facility] Last Admin: 02/01/20 13:04 Dose: 20 mg Documented by: Prednisone (Prednisone 5 Mg Tablet) 7.5 mg PO DAILY [facility] Last Admin: 02/01/20 08:21 Dose: 7.5 mg Documented by: Senna/Docusate Sodium (Senna/Docusate Sodium 1 Tablet) 2 tablet PO BID [facility] Last Admin: 02/01/20 08:22 Dose: 2 tablet Documented by: Sodium Chloride (0.9% Saline Lock 10 Ml Syringe) 10 - 40 ml IV UD PRN PRN Reason: SALINE FLUSH Last Admin: 02/01/20 08:31 Dose: 20 ml Documented by: Tacrolimus (Tacrolimus 0.5 Mg Capsule) 1 mg PO BID [facility] Last Admin: 02/01/20 08:24 Dose: 1 mg Documented by: Medical Necessity - Tobacco Use Smoking Status: Former smoker Tobacco Use: Non-smoker Assessment/Plan All Active Problems (Last Updated 09/02/18 @ 13:55 by Katheryn Mosqueda) TUCKER (acute kidney injury) (Acute) a fib with rvr (Acute) COVID-19 virus infection (Acute) Acute respiratory failure with hypoxia (Acute) ESRD s/p renal transplant TUCKER ATN with COVID-19 Hypernatremia resolved Hyperkalemia resolved COVID-19 Scr 1.9 if worse tomorrow will need to decrease further or stop lasix avoid nephrotoxins Check tacrolimus level tomorrow morning Vancomycin dosing per pharmacy to avoid nephrotoxicity
[2020-02-01 17:21] LABS: Bedside Glucose 229 mg/dL (70-110)
[2020-02-01 21:41] LABS: Bedside Glucose 210 mg/dL (70-110)
[2020-02-02] VITALS (14 sets, daily range): BP systolic 121–134; BP diastolic 68–80; PULSE 85–101; RESP 12–38; TEMP 36.2–36.8; O2SAT 94–98
[2020-02-02] MEDS: Amiodarone 200 MG Tablet PO ×3 (06:16→22:57)
[2020-02-02] MEDS: Menthol/Lanolin/Calamine/Znox 113 GM Tube 1 APPLIC TOPICAL ×3 (06:16→22:56)
[2020-02-02 06:45] LABS: Bedside Glucose 102 mg/dL (70-110)
[2020-02-02 09:41] LABS: Anion Gap 10 (5-15); BUN 59 mg/dL (7-18); BUN/Creat Ratio 29.9 RATIO (10-20); Chloride 103 mmol/L (98-107); Creatinine, Serum 1.97 mg/dL (0.70-1.30); EST Glomerular Filtration Rate 38 mL/min (>60); Est Glom Filt Rate - Afr Amer 46 mL/min (>60); Estimated Creatinine Clearance 41.47 ml/min; Glucose 95 mg/dL (74-106); Potassium 4.5 mmol/L (3.5-5.1); Sodium Level 135 mmol/L (136-145)
--- NOTE | 2020-02-02 10:02 | PN_ITS ---
Patient Problems: Active and Suspected Problems (Last Updated 09/02/18 @ 13:55 by Katheryn Mosqueda) TUCKER (acute kidney injury) (Acute) a fib with rvr (Acute) COVID-19 virus infection (Acute) Acute respiratory failure with hypoxia (Acute) Subjective: Patient did okay overnight. Patient was subjectively improved compared to previous. Patient denies any current nausea, vomiting, abdominal pain or chest pain. Patient is still requiring significant nasal cannula oxygen to maintain saturations. No fevers been reported overnight. - Physical Exam Vitals/I&O's: Vital Signs Temp Pulse Resp BP Pulse Ox 36.2 C L 88 20 H 131/77 H 95 02/02/20 03:06 02/02/20 03:06 02/02/20 03:06 02/02/20 03:06 02/02/20 07:22 Oxygen Flow Rate (L/min) 10 Oxygen Delivery Method Nasal Cannula Weight: 72.4 kg Body Mass Index (BMI) 26.0 Intake and Output for Last 24 Hours 01/31/20 02/01/20 02/02/20 23:59 23:59 23:59 Intake Total 1468.08 / 1468.08 990 / 990 0 / 0 Output Total 2049 / 2049 1625 / 1625 350 / 350 Balance -581.92 / -581.92 -635 / -635 -350 / -350 General: Alert, Oriented x3, Cooperative, No apparent distress, - - No conversational dyspnea HEENT: Atraumatic, PERRLA, EOMI, Normocephalic, - - Slight scleral injection Oral: Moist Mucosa, No Gingival or Mucosal Lesions/ Ulcerations Neck: Supple, No Nodes, Trachea Midline Lungs: No rhonchi, No wheeze, No rales, Diminished Cardiovascular: Regular rate, Regular Rhythm, Normal S1, Normal S2, Murmur - Grade 2 out of 6 systolic ejection murmur, No rub noted, No Gallop Abdomen: Bowel Sounds Present, Soft, Non Tender, Non-Distended, Obese Extremities: No clubbing, No cyanosis, No edema Skin: No rashes, No breakdown Musculoskeletal: No Tenderness to Palpation of Joints or Extremities Lymphatic: No Cervical, Supraclavicular, or Inguinal Adenopathy Neurological: Cranial nerves II-XII grossly intact, Neuro grossly intact, Motor Exam 5/5 strength throughout Psych/Mental Status: Appropriate, Flat Affect Microbiology Past 72 Hours 01/26/20 12:30 Blood Culture (Wb) - Anticubital Right Blood Culture - Final Coag Negative Staph 01/26/20 12:30 Blood Culture (Wb) - Right Forearm Bacteria Detection (PCR) - Final Staphylococcus epidermidis mecA Resistance Marker 01/26/20 12:30 Blood Culture (Wb) - Right Forearm Blood Culture - Final Staphylococcus epidermidis 01/28/20 13:30 Blood Culture (Wb) - Anticubital Right Blood Culture - Preliminary No growth in 48 hours. 01/28/20 13:45 Blood Culture (Wb) - Right Wrist Blood Culture - Preliminary No growth in 48 hours. Laboratory Results 02/01/20 12:05: POC Glucose 234 H 02/01/20 14:22: POC Glucose 253 H 02/01/20 16:44: POC Glucose 229 H 02/01/20 21:11: POC Glucose 210 H 02/02/20 06:15: POC Glucose 102 02/02/20 08:04: Phosphorus Pending, Magnesium Pending 02/02/20 08:04: Tacrolimus Pending 02/02/20 08:04: Random Vancomycin 12.0 02/02/20 08:04: Sodium 135 L, Potassium 4.5, Chloride 103, Carbon Dioxide 22.0, Anion Gap 10, BUN 59 H, Creatinine 1.97 H, Estim Creat Clear Calc 41.47, Est GFR (MDRD) Af Amer 46 L, Est GFR (MDRD) Non-Af 38 L, BUN/Creatinine Ratio 29.9 H, Glucose 95, Calcium 9.0 Current Medications Acetaminophen (Acetaminophen 325 Mg Tablet) 650 mg PO Q6H PRN PRN PRN Reason: Pain Score 1-10 Last Admin: 02/01/20 01:57 Dose: 650 mg Documented by: Albuterol Sulfate (Albuterol 2.5 Mg/3 Ml Vial.Neb.) 2.5 mg INHALATION Q2H PRN PRN PRN Reason: WHEEZING Amiodarone HCl (Amiodarone 200 Mg Tablet) 200 mg PO TID [facility] Stop: 02/04/20 23:55 Last Admin: 02/02/20 06:16 Dose: 200 mg Documented by: Amiodarone HCl (Amiodarone 200 Mg Tablet) 200 mg PO BID [facility] Stop: 02/18/20 22:01 Amiodarone HCl (Amiodarone 200 Mg Tablet) 200 mg PO DAILY [facility] Apixaban (Apixaban 5 Mg Tablet) 5 mg PO BID [facility] Last Admin: 02/01/20 21:13 Dose: 5 mg Documented by: Calamine/Phenol (Menthol/Lanolin/Calamine/Znox 113 Gm Tube) 1 applic TOPICAL BID [facility]; Protocol Last Admin: 02/02/20 06:16 Dose: 1 applicatio Documented by: Dextrose (Dextrose 50%-Water 25 Gm/50 Ml Disp.Syrin) 0 gm IV X1 PRN; Protocol PRN Reason: Hypoglycemia Furosemide (Furosemide 40 Mg/4 Ml Vial) 40 mg IV DAILY [facility] Last Admin: 02/01/20 08:21 Dose: 40 mg Documented by: Glucagon (Glucagon 1 Mg/Ml Syringe) 1 mg IM .X1 PRN PRN Reason: Hypoglycemia Sodium Chloride () 250 mls @ 15 mls/hr IV .[id number] PRN PRN Reason: Saline Flush Last Infusion: 02/02/20 07:58 Dose: Infused Documented by: Sodium Chloride () 250 mls @ 15 mls/hr IV .[id number] PRN PRN Reason: Additional IVPB Infusion Vancomycin IV Pharmacy to Dose (1 ea/ Sodium Chloride) 500 mls @ 250 mls/hr IV PRN PRN; Protocol PRN Reason: Rx to Dose Insulin Glargine (Insulin Glargine 100 Units/Ml Pen) 7 units SC BID [facility] Last Admin: 02/01/20 21:12 Dose: 7 u Documented by: Insulin Human Lispro (Insulin Lispro 100 Unit/Ml Insuln.Pen) 0 unit SC ACHS [facility]; Protocol Last Admin: 02/02/20 06:16 Dose: Not Given Documented by: Metoprolol Tartrate (Metoprolol Tartrate 100 Mg Tablet) 100 mg PO BID [facility] Last Admin: 02/01/20 21:12 Dose: 100 mg Documented by: Ondansetron HCl (Ondansetron 4 Mg/2 Ml Vial) 4 mg IV Q8H PRN PRN PRN Reason: NAUSEA/VOMITING Pantoprazole Sodium (Pantoprazole Sodium 40 Mg Tablet) 40 mg PO BID [facility] Last Admin: 02/01/20 21:13 Dose: 40 mg Documented by: Paroxetine HCl (Paroxetine 20 Mg Tablet) 20 mg PO DAILY [facility] Last Admin: 02/01/20 13:04 Dose: 20 mg Documented by: Prednisone (Prednisone 5 Mg Tablet) 7.5 mg PO DAILY [facility] Last Admin: 02/01/20 08:21 Dose: 7.5 mg Documented by: Senna/Docusate Sodium (Senna/Docusate Sodium 1 Tablet) 2 tablet PO BID [facility] Last Admin: 02/01/20 21:13 Dose: 2 tablet Documented by: Sodium Chloride (0.9% Saline Lock 10 Ml Syringe) 10 - 40 ml IV UD PRN PRN Reason: SALINE FLUSH Last Admin: 02/01/20 08:31 Dose: 20 ml Documented by: Tacrolimus (Tacrolimus 0.5 Mg Capsule) 1 mg PO BID [facility] Last Admin: 02/01/20 21:13 Dose: 1 mg Documented by: Medical Necessity - Tobacco Use Smoking Status: Former smoker Tobacco Use: Non-smoker Assessment/Plan All Active Problems (Last Updated 09/02/18 @ 13:55 by Katheryn Mosqueda) TUCKER (acute kidney injury) (Acute) a fib with rvr (Acute) COVID-19 virus infection (Acute) Acute respiratory failure with hypoxia (Acute) RECOMMENDATIONS: 1. Continue rate/rhythm control strategy per cardiology recommendations. 2. Continue attempts at gentle diuresis as tolerated by hemodynamics and renal function. 3. Monitor tacrolimus level closely given potential interaction with amiodarone. 4. Continue to wean supplemental O2 to maintain oxygen saturations at or above 90%. 5. Continue systemic anticoagulation as ordered. 6. Dietary advancement per speech therapy recommendations. 7. Encourage incentive spirometer use and mobilize patient as tolerated. IMPRESSIONS: 1. Acute hypoxemic respiratory failure secondary to COVID-19 pneumonia Continue current supportive measures. The patient was able to be successfully extubated on January 26. Respiratory status appears to be slowly improving. Continue rate/rhythm control strategy per cardiology recommendations. Continue scheduled gentle diuresis as tolerated by hemodynamics and renal function. Continue therapeutic Lovenox. Dietary advancement per speech therapy recommendations. 2. Acute on chronic kidney disease status post renal transplantation Improving. Defer ongoing hemodialysis need to nephrology. Defer tacrolimus management per nephrology recommendations. Continue diuresis as tolerated by hemodynamics and renal function. We will need to watch tacrolimus levels as patient was placed on amiodarone. 3. Paroxysmal atrial fibrillation with RVR The patient's rate/rhythm has been difficult to control. Cardiology is currently following to assist with management. We will plan to continue current rate/ rhythm control strategy. 4. Hypertension/hyperlipidemia/elevated troponin Complicates care, management, recovery and prognosis. Physical therapy to continue to work with the patient. Continue Lantus and sliding scale insulin coverage. Inpatient E&M: 95252 Subs Hosp L2
[2020-02-02] MEDS: predniSONE 5 MG Tablet 7.5 MG PO (10:21)
[2020-02-02] MEDS: Pantoprazole Sodium 40 MG Tablet PO ×2 (10:21→22:58)
[2020-02-02] MEDS: Metoprolol Tartrate 100 MG Tablet PO ×2 (10:21→22:57)
[2020-02-02] MEDS: Paroxetine 20 MG Tablet PO (10:22)
[2020-02-02] MEDS: Senna/Docusate Sodium 1 Tablet 2 TABLET PO ×2 (10:22→22:58)
[2020-02-02] MEDS: Furosemide 40 MG/4 ML Vial IV (10:22)
[2020-02-02] MEDS: APIXABAN 5 MG TABLET PO ×2 (10:22→22:57)
[2020-02-02] MEDS: Tacrolimus 0.5 MG Capsule 1 MG PO ×2 (10:22→22:58)
[2020-02-02 11:01] LABS: Magnesium 1.9 mg/dL (1.6-2.6); Phosphorus 3.7 mg/dL (2.5-4.9)
--- NOTE | 2020-02-02 11:11 | PN.RENAL_ITS ---
Patient Problems: Active and Suspected Problems (Last Updated 09/02/18 @ 13:55 by Katheryn Mosqueda) TUCKER (acute kidney injury) (Acute) a fib with rvr (Acute) COVID-19 virus infection (Acute) Acute respiratory failure with hypoxia (Acute) Subjective: Patient denies shortness of breath chest pain or any complaints. He wants to leave. Objective: Physical examination deferred to preserve PPE and prevent further transmission of COVID-19. - Physical Exam Vitals/I&O's: Vital Signs Temp Pulse Resp BP Pulse Ox 97.1 F L 98 19 H 127/68 H 97 02/02/20 09:05 02/02/20 10:21 02/02/20 09:05 02/02/20 09:05 02/02/20 09:05 Oxygen Flow Rate (L/min) 10 Oxygen Delivery Method Nasal Cannula Weight: 72.4 kg Body Mass Index (BMI) 26.0 Intake and Output for Last 24 Hours 01/31/20 02/01/20 02/02/20 23:59 23:59 23:59 Intake Total 1468.08 / 1468.08 990 / 990 0 / 0 Output Total 2049 / 2049 1625 / 1625 350 / 350 Balance -581.92 / -581.92 -635 / -635 -350 / -350 Microbiology Past 72 Hours 01/26/20 12:30 Blood Culture (Wb) - Anticubital Right Blood Culture - Final Coag Negative Staph 01/26/20 12:30 Blood Culture (Wb) - Right Forearm Bacteria Detection (PCR) - Final Staphylococcus epidermidis mecA Resistance Marker 01/26/20 12:30 Blood Culture (Wb) - Right Forearm Blood Culture - Final Staphylococcus epidermidis 01/28/20 13:30 Blood Culture (Wb) - Anticubital Right Blood Culture - Preliminary No growth in 48 hours. 01/28/20 13:45 Blood Culture (Wb) - Right Wrist Blood Culture - Preliminary No growth in 48 hours. Laboratory Results 02/01/20 12:05: POC Glucose 234 H 02/01/20 14:22: POC Glucose 253 H 02/01/20 16:44: POC Glucose 229 H 02/01/20 21:11: POC Glucose 210 H 02/02/20 06:15: POC Glucose 102 02/02/20 08:04: Phosphorus 3.7, Magnesium 1.9 02/02/20 08:04: Tacrolimus Pending 02/02/20 08:04: Random Vancomycin 12.0 02/02/20 08:04: Sodium 135 L, Potassium 4.5, Chloride 103, Carbon Dioxide 22.0, Anion Gap 10, BUN 59 H, Creatinine 1.97 H, Estim Creat Clear Calc 41.47, Est GFR (MDRD) Af Amer 46 L, Est GFR (MDRD) Non-Af 38 L, BUN/Creatinine Ratio 29.9 H, Glucose 95, Calcium 9.0 Current Medications Acetaminophen (Acetaminophen 325 Mg Tablet) 650 mg PO Q6H PRN PRN PRN Reason: Pain Score 1-10 Last Admin: 02/01/20 01:57 Dose: 650 mg Documented by: Albuterol Sulfate (Albuterol 2.5 Mg/3 Ml Vial.Neb.) 2.5 mg INHALATION Q2H PRN PRN PRN Reason: WHEEZING Amiodarone HCl (Amiodarone 200 Mg Tablet) 200 mg PO TID [facility] Stop: 02/04/20 23:55 Last Admin: 02/02/20 06:16 Dose: 200 mg Documented by: Amiodarone HCl (Amiodarone 200 Mg Tablet) 200 mg PO BID [facility] Stop: 02/18/20 22:01 Amiodarone HCl (Amiodarone 200 Mg Tablet) 200 mg PO DAILY [facility] Apixaban (Apixaban 5 Mg Tablet) 5 mg PO BID [facility] Last Admin: 02/02/20 10:22 Dose: 5 mg Documented by: Calamine/Phenol (Menthol/Lanolin/Calamine/Znox 113 Gm Tube) 1 applic TOPICAL BID [facility]; Protocol Last Admin: 02/02/20 10:25 Dose: 1 applicatio Documented by: Dextrose (Dextrose 50%-Water 25 Gm/50 Ml Disp.Syrin) 0 gm IV X1 PRN; Protocol PRN Reason: Hypoglycemia Furosemide (Furosemide 40 Mg/4 Ml Vial) 40 mg IV DAILY [facility] Last Admin: 02/02/20 10:22 Dose: 40 mg Documented by: Glucagon (Glucagon 1 Mg/Ml Syringe) 1 mg IM .X1 PRN PRN Reason: Hypoglycemia Sodium Chloride () 250 mls @ 15 mls/hr IV .[id number] PRN PRN Reason: Saline Flush Last Infusion: 02/02/20 07:58 Dose: Infused Documented by: Sodium Chloride () 250 mls @ 15 mls/hr IV .[id number] PRN PRN Reason: Additional IVPB Infusion Vancomycin IV Pharmacy to Dose (1 ea/ Sodium Chloride) 500 mls @ 250 mls/hr IV PRN PRN; Protocol PRN Reason: Rx to Dose Insulin Glargine (Insulin Glargine 100 Units/Ml Pen) 7 units SC BID [facility] Last Admin: 02/02/20 10:26 Dose: 7 u Documented by: Insulin Human Lispro (Insulin Lispro 100 Unit/Ml Insuln.Pen) 0 unit SC ACHS [facility]; Protocol Last Admin: 02/02/20 06:16 Dose: Not Given Documented by: Metoprolol Tartrate (Metoprolol Tartrate 100 Mg Tablet) 100 mg PO BID [facility] Last Admin: 02/02/20 10:21 Dose: 100 mg Documented by: Ondansetron HCl (Ondansetron 4 Mg/2 Ml Vial) 4 mg IV Q8H PRN PRN PRN Reason: NAUSEA/VOMITING Pantoprazole Sodium (Pantoprazole Sodium 40 Mg Tablet) 40 mg PO BID [facility] Last Admin: 02/02/20 10:21 Dose: 40 mg Documented by: Paroxetine HCl (Paroxetine 20 Mg Tablet) 20 mg PO DAILY [facility] Last Admin: 02/02/20 10:22 Dose: 20 mg Documented by: Prednisone (Prednisone 5 Mg Tablet) 7.5 mg PO DAILY [facility] Last Admin: 02/02/20 10:21 Dose: 7.5 mg Documented by: Senna/Docusate Sodium (Senna/Docusate Sodium 1 Tablet) 2 tablet PO BID [facility] Last Admin: 02/02/20 10:22 Dose: 2 tablet Documented by: Sodium Chloride (0.9% Saline Lock 10 Ml Syringe) 10 - 40 ml IV UD PRN PRN Reason: SALINE FLUSH Last Admin: 02/01/20 08:31 Dose: 20 ml Documented by: Tacrolimus (Tacrolimus 0.5 Mg Capsule) 1 mg PO BID [facility] Last Admin: 02/02/20 10:22 Dose: 1 mg Documented by: Medical Necessity - Tobacco Use Smoking Status: Former smoker Tobacco Use: Non-smoker Assessment/Plan All Active Problems (Last Updated 09/02/18 @ 13:55 by Katheryn Mosqueda) TUCKER (acute kidney injury) (Acute) a fib with rvr (Acute) COVID-19 virus infection (Acute) Acute respiratory failure with hypoxia (Acute) ESRD s/p renal transplant TUCKER ATN with COVID-19 Hypernatremia resolved Hyperkalemia resolved COVID-19 Scr 1.9 stable if worse tomorrow will need to decrease further or stop lasix avoid nephrotoxins f/u tacrolimus level Vancomycin dosing per pharmacy to avoid nephrotoxicity d/w patient and rn
[2020-02-02] MEDS: Insulin Lispro 100 UNIT/ML INSULN.PEN SC ×2 (11:41→16:09)
--- NOTE | 2020-02-02 11:50 | CASEMGMT ---
Addendum entered by Zoya Chaudhari 02/02/20 14:29: With pt permission, phone call to pt mother Joslyn to update on d/c plans. VM left requesting return call. CHELSY Posada Addendum entered by Zoya Chaudhari 02/02/20 12:25: Social Work Return call from [facility] and they would consider pt. Referral faxed and will await determination. CHELSY Posada Original Note: Social Work SW made multiple calls to pt room and pt did not answer. SW met with pt in room and introduced self and role of SW. Discussed with pt discharge plan and pt is agreeable to need for short term SNF for rehab prior to returning home with his parents. SW presented options of SNFs accepting pt and pt first choice is [facility], second choice are either [facility] or [facility]. Phone call to Danielle at [facility] and left requesting return call with bed availability info. SW will await return call. CHELSY Posada
[2020-02-02 11:51] LABS: Bedside Glucose 204 mg/dL (70-110)
--- NOTE | 2020-02-02 15:21 | PN.ID_ITS ---
Patient Problems: Active and Suspected Problems (Last Updated 09/02/18 @ 13:55 by Katheryn Mosqueda) TUCKER (acute kidney injury) (Acute) a fib with rvr (Acute) COVID-19 virus infection (Acute) Acute respiratory failure with hypoxia (Acute) Subjective: Feeling about the same, no fever - Physical Exam Vitals/I&O's: Vital Signs Temp Pulse Resp BP Pulse Ox 97.1 F L 98 19 H 127/68 H 97 02/02/20 09:05 02/02/20 10:21 02/02/20 09:05 02/02/20 09:05 02/02/20 09:05 Oxygen Flow Rate (L/min) 10 Oxygen Delivery Method Nasal Cannula Weight: 72.4 kg Body Mass Index (BMI) 26.0 Intake and Output for Last 24 Hours 01/31/20 02/01/20 02/02/20 23:59 23:59 23:59 Intake Total 1468.08 / 1468.08 990 / 990 120 / 120 Output Total 2049 / 2049 1625 / 1625 350 / 350 Balance -581.92 / -581.92 -635 / -635 -230 / -230 General: Cooperative, No apparent distress Lungs: Diminished, Rhonchi Cardiovascular: Regular rate, Regular Rhythm Abdomen: Soft, Non Tender, Non-Distended Skin: No rashes Microbiology Past 72 Hours 01/28/20 13:30 Blood Culture (Wb) - Anticubital Right Blood Culture - Final No growth in 5 days. 01/28/20 13:45 Blood Culture (Wb) - Right Wrist Blood Culture - Final No growth in 5 days. 01/26/20 12:30 Blood Culture (Wb) - Anticubital Right Blood Culture - Final Coag Negative Staph 01/26/20 12:30 Blood Culture (Wb) - Right Forearm Bacteria Detection (PCR) - Final Staphylococcus epidermidis mecA Resistance Marker 01/26/20 12:30 Blood Culture (Wb) - Right Forearm Blood Culture - Final Staphylococcus epidermidis Laboratory Results 02/01/20 16:44: POC Glucose 229 H 02/01/20 21:11: POC Glucose 210 H 02/02/20 06:15: POC Glucose 102 02/02/20 08:04: Phosphorus 3.7, Magnesium 1.9 02/02/20 08:04: Tacrolimus Pending 02/02/20 08:04: Random Vancomycin 12.0 02/02/20 08:04: Sodium 135 L, Potassium 4.5, Chloride 103, Carbon Dioxide 22.0, Anion Gap 10, BUN 59 H, Creatinine 1.97 H, Estim Creat Clear Calc 41.47, Est GFR (MDRD) Af Amer 46 L, Est GFR (MDRD) Non-Af 38 L, BUN/Creatinine Ratio 29.9 H, Glucose 95, Calcium 9.0 02/02/20 11:40: POC Glucose 204 H Current Medications Acetaminophen (Acetaminophen 325 Mg Tablet) 650 mg PO Q6H PRN PRN PRN Reason: Pain Score 1-10 Last Admin: 02/01/20 01:57 Dose: 650 mg Documented by: Albuterol Sulfate (Albuterol 2.5 Mg/3 Ml Vial.Neb.) 2.5 mg INHALATION Q2H PRN PRN PRN Reason: WHEEZING Amiodarone HCl (Amiodarone 200 Mg Tablet) 200 mg PO TID [facility] Stop: 02/04/20 23:55 Last Admin: 02/02/20 06:16 Dose: 200 mg Documented by: Amiodarone HCl (Amiodarone 200 Mg Tablet) 200 mg PO BID [facility] Stop: 02/18/20 22:01 Amiodarone HCl (Amiodarone 200 Mg Tablet) 200 mg PO DAILY [facility] Apixaban (Apixaban 5 Mg Tablet) 5 mg PO BID [facility] Last Admin: 02/02/20 10:22 Dose: 5 mg Documented by: Calamine/Phenol (Menthol/Lanolin/Calamine/Znox 113 Gm Tube) 1 applic TOPICAL BID [facility]; Protocol Last Admin: 02/02/20 10:25 Dose: 1 applicatio Documented by: Dextrose (Dextrose 50%-Water 25 Gm/50 Ml Disp.Syrin) 0 gm IV X1 PRN; Protocol PRN Reason: Hypoglycemia Furosemide (Furosemide 40 Mg/4 Ml Vial) 40 mg IV DAILY [facility] Last Admin: 02/02/20 10:22 Dose: 40 mg Documented by: Glucagon (Glucagon 1 Mg/Ml Syringe) 1 mg IM .X1 PRN PRN Reason: Hypoglycemia Sodium Chloride () 250 mls @ 15 mls/hr IV .[id number] PRN PRN Reason: Saline Flush Last Infusion: 12/21/20 07:58 Dose: Infused Documented by: Sodium Chloride () 250 mls @ 15 mls/hr IV .[id number] PRN PRN Reason: Additional IVPB Infusion Vancomycin IV Pharmacy to Dose (1 ea/ Sodium Chloride) 500 mls @ 250 mls/hr IV PRN PRN; Protocol PRN Reason: Rx to Dose Insulin Glargine (Insulin Glargine 100 Units/Ml Pen) 7 units SC BID [facility] Last Admin: 02/02/20 10:26 Dose: 7 u Documented by: Insulin Human Lispro (Insulin Lispro 100 Unit/Ml Insuln.Pen) 0 unit SC ACHS [facility]; Protocol Last Admin: 02/02/20 11:41 Dose: 4 u Documented by: Metoprolol Tartrate (Metoprolol Tartrate 100 Mg Tablet) 100 mg PO BID [facility] Last Admin: 02/02/20 10:21 Dose: 100 mg Documented by: Ondansetron HCl (Ondansetron 4 Mg/2 Ml Vial) 4 mg IV Q8H PRN PRN PRN Reason: NAUSEA/VOMITING Pantoprazole Sodium (Pantoprazole Sodium 40 Mg Tablet) 40 mg PO BID [facility] Last Admin: 02/02/20 10:21 Dose: 40 mg Documented by: Paroxetine HCl (Paroxetine 20 Mg Tablet) 20 mg PO DAILY [facility] Last Admin: 02/02/20 10:22 Dose: 20 mg Documented by: Prednisone (Prednisone 5 Mg Tablet) 7.5 mg PO DAILY [facility] Last Admin: 02/02/20 10:21 Dose: 7.5 mg Documented by: Senna/Docusate Sodium (Senna/Docusate Sodium 1 Tablet) 2 tablet PO BID [facility] Last Admin: 02/02/20 10:22 Dose: 2 tablet Documented by: Sodium Chloride (0.9% Saline Lock 10 Ml Syringe) 10 - 40 ml IV UD PRN PRN Reason: SALINE FLUSH Last Admin: 02/01/20 08:31 Dose: 20 ml Documented by: Tacrolimus (Tacrolimus 0.5 Mg Capsule) 1 mg PO BID [facility] Last Admin: 02/02/20 10:22 Dose: 1 mg Documented by: Medical Necessity - Tobacco Use Smoking Status: Former smoker Tobacco Use: Non-smoker Route of nutrition/ use of supplements: [] Nutritional Intake: [] IV Site: [] Fernando Catheter: [] - Assessment/Plan Antibiotics: [] Assessment/Plan: [] Active and Suspected Problems (Last Updated 09/02/18 @ 13:55 by Katheryn Mosqueda) COVID-19 virus infection (Acute) Acute respiratory failure with hypoxia (Acute) covid with hypoxia, resp failure, renal transplant - on therapeutic lovenox, completed 10 days of dex, and completed 5 doses of remdesivir 01/22. D-dimer was 4.2. Had O2 worsening after extubation with ongoing issues with afib, continued fever, rising wbc; so on 01/27 repeated cxs and started vanc/cefepime. 2 of 2 bcx with CoNS. Sputum with some yeast. Now afebrile, feeling better, O2 improved, out of icu. Cont vanc for CoNS bacteremia. Cr stable today. Will follow
--- NOTE | 2020-02-02 15:37 | PCM.RX.CS ---
Consult Pharmacy has been consulted to manage selected antiobiotic: Vancomycin Type of Consult: Follow-up Suspected Infection: Bacteremia Labs: Sodium 135 mmol/L (136-145) L 02/02/20 08:04 Potassium 4.5 mmol/L (3.5-5.1) 02/02/20 08:04 Chloride 103 mmol/L (98-107) 02/02/20 08:04 Carbon Dioxide 22.0 mmol/L (21.0-32.0) 02/02/20 08:04 Anion Gap 10 (5-15) 02/02/20 08:04 BUN 59 mg/dL (7-18) H 02/02/20 08:04 Creatinine 1.97 mg/dL (0.70-1.30) H 02/02/20 08:04 Est GFR (MDRD) Af Amer 46 mL/min (>60) L 02/02/20 08:04 Est GFR (MDRD) Non-Af 38 mL/min (>60) L 02/02/20 08:04 BUN/Creatinine Ratio 29.9 RATIO (10-20) H 02/02/20 08:04 Glucose 95 mg/dL (74-106) 02/02/20 08:04 Vancomycin Trough 26.0 ug/mL (5.0-15.0) H 01/31/20 19:20 Random Vancomycin 12.0 ug/mL (0.0-15.0) 02/02/20 08:04 Microbiology: Microbiology 01/28/20 13:30 Blood Culture (Wb) - Anticubital Right Blood Culture - Final No growth in 5 days. 01/28/20 13:45 Blood Culture (Wb) - Right Wrist Blood Culture - Final No growth in 5 days. 01/26/20 12:30 Blood Culture (Wb) - Anticubital Right Blood Culture - Final Coag Negative Staph 01/26/20 12:30 Blood Culture (Wb) - Right Forearm Bacteria Detection (PCR) - Final Staphylococcus epidermidis mecA Resistance Marker 01/26/20 12:30 Blood Culture (Wb) - Right Forearm Blood Culture - Final Staphylococcus epidermidis 01/26/20 13:12 Sputum, Tracheal Aspirate Gram Stain - Final 01/26/20 13:12 Sputum, Tracheal Aspirate Respiratory Culture - Final Presumptive C albicans 01/18/20 16:25 Blood Culture (Wb) - Anticubital Left Blood Culture - Final No growth in 5 days. 01/18/20 16:36 Blood Culture (Wb) - Left Forearm Blood Culture - Final No growth in 5 days. 01/19/20 01:45 Sputum, Induced/Lukens Gram Stain - Final 01/19/20 01:45 Sputum, Induced/Lukens Respiratory Culture - Final Goal Trough: 15-20 mcg/mL Pharmacy Plan for Drug Dosing: VANCOMYCIN LEVEL RECEIVED Current Vancomycin Dose: HOLD (LAST DOSE 750MG 01/30 @ 0745) Vancomycin Level: 12.0 MG/DL Hours Since Last Dose: 48 Renal Function: SCR 1.97 (CRCL 41) Renal Function Trend: STABLE, BUT HAS BEEN WORSENING OVER THE PAST COUPLE OF DAYS Lab/Micro: CoNS BACTEREMIA Vancomycin Plan/Comments: ID NOTE SAYS TO CONTINUE VANCO, SCR STABLE. WILL DOSE LIKE CRCL <20 AND NOT ON HD. SINCE PATIENT BELOW GOAL RANGE, WILL GIVE 1000MG X1 AND DRAW A RANDOM LEVEL IN 24 HOURS. Pharmacy Service will continue to monitor and adjust dosing as required. Labs to be done on [date and time ordered]: 02/03/20 @ 1600
--- NOTE | 2020-02-02 15:48 | CASEMGMT ---
Social Work SW spoke with pt mother Joslyn and updated that pt is agreeable to a SNF for short term rehab prior to return home and that pt would prefer [facility], [facility] and [facility]. Joslyn is agreeable and understanding of d/c plan. No discharge date set at this time. Plan: [facility], pending acceptance [facility]LSY Posada
[2020-02-02] MEDS: Vancomycin IV 1,000 MG/200 ML BAG 200 MG IV (16:40)
--- NOTE | 2020-02-02 17:15 | PCM.PN.HOSP ---
Patient Problems: Active and Suspected Problems (Last Updated 09/02/18 @ 13:55 by Katheryn Mosqueda) TUCKER (acute kidney injury) (Acute) a fib with rvr (Acute) COVID-19 virus infection (Acute) Acute respiratory failure with hypoxia (Acute) Subjective: Feels better but still requiring 10 L via nasal cannula to maintain his oxygen saturations Vitals/I&O's: Vital Signs Temp Pulse Resp BP Pulse Ox 98.1 F 97 19 H 121/73 H 97 02/02/20 15:00 02/02/20 15:21 02/02/20 15:00 02/02/20 15:00 02/02/20 15:00 Oxygen Flow Rate (L/min) 10 Oxygen Delivery Method Airvo Weight: 159 lb 9.835 oz Body Mass Index (BMI) 26.0 Intake and Output for Last 24 Hours 01/31/20 02/01/20 02/02/20 23:59 23:59 23:59 Intake Total 1468.08 / 1468.08 990 / 990 120 / 120 Output Total 2049 / 2049 1625 / 1625 350 / 350 Balance -581.92 / -581.92 -635 / -635 -230 / -230 General: Alert, Oriented x3, Cooperative, No apparent distress HEENT: Atraumatic, PERRLA, EOMI, Normocephalic Oral: Moist Mucosa Neck: Supple, No JVD Lungs: Normal air movement, No rhonchi, No wheeze, No rales, Diminished Cardiovascular: Regular rate, Regular Rhythm, Normal S1, Normal S2, Murmur Abdomen: Soft, Non Tender, Non-Distended, No Hepato-splenomegaly Extremities: No edema, Capillary Refill Less than 3 Seconds Skin: No rashes, No breakdown Neurological: Neuro grossly intact, Sensory exam intact to light touch and pain Microbiology Past 72 Hours 01/28/20 13:30 Blood Culture (Wb) - Anticubital Right Blood Culture - Final No growth in 5 days. 01/28/20 13:45 Blood Culture (Wb) - Right Wrist Blood Culture - Final No growth in 5 days. 01/26/20 12:30 Blood Culture (Wb) - Anticubital Right Blood Culture - Final Coag Negative Staph 01/26/20 12:30 Blood Culture (Wb) - Right Forearm Bacteria Detection (PCR) - Final Staphylococcus epidermidis mecA Resistance Marker 01/26/20 12:30 Blood Culture (Wb) - Right Forearm Blood Culture - Final Staphylococcus epidermidis Laboratory Results 02/01/20 16:44: POC Glucose 229 H 02/01/20 21:11: POC Glucose 210 H 02/02/20 06:15: POC Glucose 102 02/02/20 08:04: Phosphorus 3.7, Magnesium 1.9 02/02/20 08:04: Tacrolimus Pending 02/02/20 08:04: Random Vancomycin 12.0 02/02/20 08:04: Sodium 135 L, Potassium 4.5, Chloride 103, Carbon Dioxide 22.0, Anion Gap 10, BUN 59 H, Creatinine 1.97 H, Estim Creat Clear Calc 41.47, Est GFR (MDRD) Af Amer 46 L, Est GFR (MDRD) Non-Af 38 L, BUN/Creatinine Ratio 29.9 H, Glucose 95, Calcium 9.0 02/02/20 11:40: POC Glucose 204 H Current Medications Acetaminophen (Acetaminophen 325 Mg Tablet) 650 mg PO Q6H PRN PRN PRN Reason: Pain Score 1-10 Last Admin: 02/01/20 01:57 Dose: 650 mg Documented by: Albuterol Sulfate (Albuterol 2.5 Mg/3 Ml Vial.Neb.) 2.5 mg INHALATION Q2H PRN PRN PRN Reason: WHEEZING Amiodarone HCl (Amiodarone 200 Mg Tablet) 200 mg PO TID [facility] Stop: 02/04/20 23:55 Last Admin: 02/02/20 16:09 Dose: 200 mg Documented by: Amiodarone HCl (Amiodarone 200 Mg Tablet) 200 mg PO BID [facility] Stop: 02/18/20 22:01 Amiodarone HCl (Amiodarone 200 Mg Tablet) 200 mg PO DAILY [facility] Apixaban (Apixaban 5 Mg Tablet) 5 mg PO BID [facility] Last Admin: 02/02/20 10:22 Dose: 5 mg Documented by: Calamine/Phenol (Menthol/Lanolin/Calamine/Znox 113 Gm Tube) 1 applic TOPICAL BID [facility]; Protocol Last Admin: 02/02/20 10:25 Dose: 1 applicatio Documented by: Dextrose (Dextrose 50%-Water 25 Gm/50 Ml Disp.Syrin) 0 gm IV X1 PRN; Protocol PRN Reason: Hypoglycemia Furosemide (Furosemide 40 Mg/4 Ml Vial) 40 mg IV DAILY [facility] Last Admin: 02/02/20 10:22 Dose: 40 mg Documented by: Glucagon (Glucagon 1 Mg/Ml Syringe) 1 mg IM .X1 PRN PRN Reason: Hypoglycemia Sodium Chloride () 250 mls @ 15 mls/hr IV .[id number] PRN PRN Reason: Saline Flush Last Infusion: 02/02/20 07:58 Dose: Infused Documented by: Sodium Chloride () 250 mls @ 15 mls/hr IV .[id number] PRN PRN Reason: Additional IVPB Infusion Vancomycin IV Pharmacy to Dose (1 ea/ Sodium Chloride) 500 mls @ 250 mls/hr IV PRN PRN; Protocol PRN Reason: Rx to Dose Insulin Glargine (Insulin Glargine 100 Units/Ml Pen) 7 units SC BID [facility] Last Admin: 02/02/20 10:26 Dose: 7 u Documented by: Insulin Human Lispro (Insulin Lispro 100 Unit/Ml Insuln.Pen) 0 unit SC ACHS [facility]; Protocol Last Admin: 02/02/20 16:09 Dose: 2 u Documented by: Metoprolol Tartrate (Metoprolol Tartrate 100 Mg Tablet) 100 mg PO BID [facility] Last Admin: 02/02/20 10:21 Dose: 100 mg Documented by: Ondansetron HCl (Ondansetron 4 Mg/2 Ml Vial) 4 mg IV Q8H PRN PRN PRN Reason: NAUSEA/VOMITING Pantoprazole Sodium (Pantoprazole Sodium 40 Mg Tablet) 40 mg PO BID [facility] Last Admin: 02/02/20 10:21 Dose: 40 mg Documented by: Paroxetine HCl (Paroxetine 20 Mg Tablet) 20 mg PO DAILY [facility] Last Admin: 02/02/20 10:22 Dose: 20 mg Documented by: Prednisone (Prednisone 5 Mg Tablet) 7.5 mg PO DAILY [facility] Last Admin: 02/02/20 10: Dose: 7.5 mg Documented by: Senna/Docusate Sodium (Senna/Docusate Sodium 1 Tablet) 2 tablet PO BID [facility] Last Admin: 02/02/20 10:22 Dose: 2 tablet Documented by: Sodium Chloride (0.9% Saline Lock 10 Ml Syringe) 10 - 40 ml IV UD PRN PRN Reason: SALINE FLUSH Last Admin: 02/01/20 08:31 Dose: 20 ml Documented by: Tacrolimus (Tacrolimus 0.5 Mg Capsule) 1 mg PO BID [facility] Last Admin: 02/02/20 10:22 Dose: 1 mg Documented by: STROKE Vital Signs/Narrative: Vital Signs Temp Pulse Resp BP Pulse Ox 02/02/20 15:21 97 02/02/20 15:00 98.1 F 93 19 H 121/73 H 97 Medical Necessity - Tobacco Use Smoking Status: Former smoker Tobacco Use: Non-smoker Assessment/Plan All Active Problems (Last Updated 09/02/18 @ 13:55 by Katheryn Mosqueda) TUCKER (acute kidney injury) (Acute) a fib with rvr (Acute) COVID-19 virus infection (Acute) Acute respiratory failure with hypoxia (Acute) 1. Acute hypoxic respiratory failure secondary to acute bilateral COVID-19 pneumonia/MRSE bacteremia/abnormal cardiac enzymes -He completed remdesivir as well as 10 days of Decadron his back on his baseline prednisone -He had the cefepime discontinued and has been maintained on vancomycin, repeat blood cultures were negative -He did have a sputum culture that showed rare gram-positive cocci in clusters -His elevated troponin was likely secondary to demand ischemia. He is on amiodarone to continue managing his new onset A. fib -Continue with Lasix to manage a fluid overload 2. TUCKER on CKD 3/history of renal transplant -Appreciate nephrology's assistance with dialysis as well as management antirejection medications -We will continue to monitor tacrolimus levels 3. New onset A. fib/HTN/HLD/elevated troponin -Troponin secondary to demand ischemia as well as new onset A. fib -Continue with amiodarone -Blood pressure does appear stable -Continue with Eliquis and metoprolol 4. Anxiety/depression -Stable -Continue with Paxil DVT: Eliquis Inpatient E&M: 22611 Subs Hosp L2
[2020-02-02 17:25] LABS: Bedside Glucose 169 mg/dL (70-110)
[2020-02-02] MEDS: 0.9% Saline Lock 10 ML Syringe IV (23:05)
[2020-02-02 23:50] LABS: Bedside Glucose 116 mg/dL (70-110)
[2020-02-03] VITALS (17 sets, daily range): BP systolic 110–143; BP diastolic 65–86; PULSE 82–102; RESP 18–20; TEMP 36.4–37; O2SAT 93–98
[2020-02-03] MEDS: 0.9% Saline Lock 10 ML Syringe IV ×4 (01:44→18:50)
[2020-02-03 05:50] LABS: Absolute Lymphocyte Count 1.09 X10^3/uL (0.83-4.51); Absolute Neutrophil Count 15.3 X10^3/uL (2.0-7.7); Basophil# 0.05 X10^3/uL; Basophil% 0.3 % (0-1); Eosinophil# 0.55 X10^3/uL; Hematocrit 32.5 % (40-54); Lymphocyte # 1.09 X10^3/ul (4.0); Mean Corp Hgb Conc 30.8 g/dL (32-36); Mean Corpuscular Hgb 27.5 pg (27.0-32.0); Mean Corpuscular Volume 89.3 fL (80-94); Mean Platelet Vol. 10.1 fl (6.2-12.0); Monocyte# 0.63 X10^3/uL; Monocyte% 3.5 % (0-10); NRBC Flagged by Analyzer 0.2 % (0-5); Neutrophil # 15.27 X10^3/uL (2.7-7.7); Neutrophil % 84.3 % (47-70); Platelet Count 372 K/mm3 (150-450); RBC Distribution Width CV 13.6 % (11.6-14.6); RBC Distribution Width SD 43.8 fl (35.1-43.9); Red Blood Count 3.64 M/mm3 (4.6-6.2); White Blood Count 18.1 K/mm3 (4.4-11.0)
[2020-02-03 06:10] LABS: Anion Gap 8 (5-15); BUN 53 mg/dL (7-18); BUN/Creat Ratio 32.1 RATIO (10-20); Calcium,Total 8.8 mg/dL (8.5-10.1); Chloride 104 mmol/L (98-107); Creatinine, Serum 1.65 mg/dL (0.70-1.30); EST Glomerular Filtration Rate 46 mL/min (>60); Est Glom Filt Rate - Afr Amer 56 mL/min (>60); Estimated Creatinine Clearance 49.52 ml/min; Glucose 90 mg/dL (74-106); Potassium 4.1 mmol/L (3.5-5.1); Sodium Level 135 mmol/L (136-145)
[2020-02-03] MEDS: Amiodarone 200 MG Tablet PO ×3 (06:43→20:43)
[2020-02-03 07:05] LABS: Bedside Glucose 122 mg/dL (70-110)
[2020-02-03] MEDS: Menthol/Lanolin/Calamine/Znox 113 GM Tube 1 APPLIC TOPICAL ×2 (08:12→20:43)
[2020-02-03] MEDS: Pantoprazole Sodium 40 MG Tablet PO ×2 (08:14→20:43)
[2020-02-03] MEDS: predniSONE 5 MG Tablet 7.5 MG PO (08:16)
[2020-02-03] MEDS: Metoprolol Tartrate 100 MG Tablet PO ×2 (08:25→20:43)
[2020-02-03] MEDS: Tacrolimus 0.5 MG Capsule 1 MG PO ×2 (08:25→20:42)
[2020-02-03] MEDS: Paroxetine 20 MG Tablet PO (08:25)
[2020-02-03] MEDS: Furosemide 40 MG/4 ML Vial IV ×2 (08:26→17:04)
[2020-02-03] MEDS: APIXABAN 5 MG TABLET PO ×2 (08:31→20:43)
--- NOTE | 2020-02-03 09:15 | PCM.PN.PUL ---
Patient Problems: Active and Suspected Problems (Last Updated 09/02/18 @ 13:55 by Katheryn Mosqueda) TUCKER (acute kidney injury) (Acute) a fib with rvr (Acute) COVID-19 virus infection (Acute) Acute respiratory failure with hypoxia (Acute) Subjective: Patient did okay overnight. Patient continues to require 10 L nasal cannula to maintain saturations. Patient appeared to be more uncomfortable today, but states that he feels no shortness of breath subjectively. - Physical Exam Vitals/I&O's: Vital Signs Temp Pulse Resp BP Pulse Ox 37.0 C 96 18 134/72 H 94 02/03/20 08:48 02/03/20 08:48 02/03/20 08:48 02/03/20 08:48 02/03/20 08:48 Oxygen Flow Rate (L/min) 9 Oxygen Delivery Method Nasal Cannula Weight: 72.5 kg Body Mass Index (BMI) 26.0 Intake and Output for Last 24 Hours 02/01/20 02/02/20 02/03/20 23:59 23:59 23:59 Intake Total 990 / 990 670 / 1170 500 / 500 Output Total 1625 / 1625 1750 / 2100 700 / 700 Balance -635 / -635 -1080 / -930 -200 / -200 General: Alert, Oriented x3, Cooperative, - - Mild to moderate respiratory distress. Appears anxious. HEENT: Atraumatic, PERRLA, EOMI, Normocephalic, - - No scleral icterus or injection noted Oral: Moist Mucosa, No Gingival or Mucosal Lesions/ Ulcerations Neck: Supple, No Nodes, Trachea Midline, JVD, Right Lungs: No rhonchi, No wheeze, Diminished, Rales - Right base Cardiovascular: Regular rate, Normal S1, Normal S2, No murmurs, No rub noted, No Gallop Abdomen: Bowel Sounds Present, Soft, Non Tender, Non-Distended Extremities: No clubbing, No cyanosis, Edema - Trace lower extremity, - - Palpable thrill over fistula Skin: - - No change compared to previous Musculoskeletal: No Tenderness to Palpation of Joints or Extremities Lymphatic: No Cervical, Supraclavicular, or Inguinal Adenopathy Neurological: Cranial nerves II-XII grossly intact, Neuro grossly intact, Motor Exam 5/5 strength throughout Psych/Mental Status: Appropriate, Anxious Microbiology Past 72 Hours 01/28/20 13:30 Blood Culture (Wb) - Anticubital Right Blood Culture - Final No growth in 5 days. 01/28/20 13:45 Blood Culture (Wb) - Right Wrist Blood Culture - Final No growth in 5 days. 01/26/20 12:30 Blood Culture (Wb) - Anticubital Right Blood Culture - Final Coag Negative Staph 01/26/20 12:30 Blood Culture (Wb) - Right Forearm Bacteria Detection (PCR) - Final Staphylococcus epidermidis mecA Resistance Marker 01/26/20 12:30 Blood Culture (Wb) - Right Forearm Blood Culture - Final Staphylococcus epidermidis Laboratory Results 02/02/20 08:04: Phosphorus 3.7, Magnesium 1.9 02/02/20 08:04: Sodium 135 L, Potassium 4.5, Chloride 103, Carbon Dioxide 22.0, Anion Gap 10, BUN 59 H, Creatinine 1.97 H, Estim Creat Clear Calc 41.47, Est GFR (MDRD) Af Amer 46 L, Est GFR (MDRD) Non-Af 38 L, BUN/Creatinine Ratio 29.9 H, Glucose 95, Calcium 9.0 02/02/20 11:40: POC Glucose 204 H 02/02/20 16:08: POC Glucose 169 H 02/02/20 22:54: POC Glucose 116 H 02/03/20 04:56: WBC 18.1 H, RBC 3.64 L, Hgb 10.0 L, Hct 32.5 L, MCV 89.3, MCH 27.5, MCHC 30.8 L, RDW Std Deviation 43.8, RDW Coeff of Genaro 13.6, Plt Count 372, MPV 10.1, Immature Gran % (Auto) 2.900 H, Neut % (Auto) 84.3 H, Lymph % (Auto) 6.0 L, Gray % (Auto) 3.5, Eos % (Auto) 3.0, Baso % (Auto) 0.3, Absolute Neuts (auto) 15.3 H, Absolute Lymphs (auto) 1.09, Nucleated RBC % 0.2 02/03/20 04:56: Sodium 135 L, Potassium 4.1, Chloride 104, Carbon Dioxide 23.0, Anion Gap 8, BUN 53 H, Creatinine 1.65 H, Estim Creat Clear Calc 49.52, Est GFR (MDRD) Af Amer 56 L, Est GFR (MDRD) Non-Af 46 L, BUN/Creatinine Ratio 32.1 H, Glucose 90, Calcium 8.8 02/03/20 06:45: POC Glucose 122 H Current Medications Acetaminophen (Acetaminophen 325 Mg Tablet) 650 mg PO Q6H PRN PRN PRN Reason: Pain Score 1-10 Last Admin: 02/01/20 01:57 Dose: 650 mg Documented by: Albuterol Sulfate (Albuterol 2.5 Mg/3 Ml Vial.Neb.) 2.5 mg INHALATION Q2H PRN PRN PRN Reason: WHEEZING Amiodarone HCl (Amiodarone 200 Mg Tablet) 200 mg PO TID [facility] Stop: 02/04/20 23:55 Last Admin: 02/03/20 06:43 Dose: 200 mg Documented by: Amiodarone HCl (Amiodarone 200 Mg Tablet) 200 mg PO BID [facility] Stop: 02/18/20 22:01 Amiodarone HCl (Amiodarone 200 Mg Tablet) 200 mg PO DAILY [facility] Apixaban (Apixaban 5 Mg Tablet) 5 mg PO BID [facility] Last Admin: 02/03/20 08:31 Dose: 5 mg Documented by: Calamine/Phenol (Menthol/Lanolin/Calamine/Znox 113 Gm Tube) 1 applic TOPICAL BID [facility]; Protocol Last Admin: 02/03/20 08:12 Dose: 1 applicatio Documented by: Dextrose (Dextrose 50%-Water 25 Gm/50 Ml Disp.Syrin) 0 gm IV X1 PRN; Protocol PRN Reason: Hypoglycemia Furosemide (Furosemide 40 Mg/4 Ml Vial) 40 mg IV DAILY [facility] Last Admin: 02/03/20 08:26 Dose: 40 mg Documented by: Furosemide (Furosemide 40 Mg/4 Ml Vial) 40 mg IV X1 ONE Stop: 02/03/20 18:01 Glucagon (Glucagon 1 Mg/Ml Syringe) 1 mg IM .X1 PRN PRN Reason: Hypoglycemia Sodium Chloride () 250 mls @ 15 mls/hr IV .[id number] PRN PRN Reason: Saline Flush Last Infusion: 02/02/20 07:58 Dose: Infused Documented by: Sodium Chloride () 250 mls @ 15 mls/hr IV .[id number] PRN PRN Reason: Additional IVPB Infusion Vancomycin IV Pharmacy to Dose (1 ea/ Sodium Chloride) 500 mls @ 250 mls/hr IV PRN PRN; Protocol PRN Reason: Rx to Dose Insulin Glargine (Insulin Glargine 100 Units/Ml Pen) 7 units SC BID [facility] Last Admin: 02/03/20 08:09 Dose: Not Given Documented by: Insulin Human Lispro (Insulin Lispro 100 Unit/Ml Insuln.Pen) 0 unit SC ACHS [facility]; Protocol Last Admin: 02/03/20 07:40 Dose: Not Given Documented by: Metoprolol Tartrate (Metoprolol Tartrate 100 Mg Tablet) 100 mg PO BID [facility] Last Admin: 02/03/20 08:25 Dose: 100 mg Documented by: Ondansetron HCl (Ondansetron 4 Mg/2 Ml Vial) 4 mg IV Q8H PRN PRN PRN Reason: NAUSEA/VOMITING Pantoprazole Sodium (Pantoprazole Sodium 40 Mg Tablet) 40 mg PO BID [facility] Last Admin: 02/03/20 08:14 Dose: 40 mg Documented by: Paroxetine HCl (Paroxetine 20 Mg Tablet) 20 mg PO DAILY [facility] Last Admin: 02/03/20 08:25 Dose: 20 mg Documented by: Prednisone (Prednisone 5 Mg Tablet) 7.5 mg PO DAILY [facility] Last Admin: 02/03/20 08:16 Dose: 7.5 mg Documented by: Senna/Docusate Sodium (Senna/Docusate Sodium 1 Tablet) 2 tablet PO BID [facility] Last Admin: 02/03/20 07:25 Dose: Not Given Documented by: Sodium Chloride (0.9% Saline Lock 10 Ml Syringe) 10 - 40 ml IV UD PRN PRN Reason: SALINE FLUSH Last Admin: 02/03/20 08:12 Dose: 10 ml Documented by: Tacrolimus (Tacrolimus 0.5 Mg Capsule) 1 mg PO BID [facility] Last Admin: 02/03/20 08:25 Dose: 1 mg Documented by: Medical Necessity - Tobacco Use Smoking Status: Former smoker Tobacco Use: Non-smoker Assessment/Plan All Active Problems (Last Updated 09/02/18 @ 13:55 by Katheryn Mosqueda) TUCKER (acute kidney injury) (Acute) a fib with rvr (Acute) COVID-19 virus infection (Acute) Acute respiratory failure with hypoxia (Acute) RECOMMENDATIONS: 1. Continue rate/rhythm control strategy per cardiology recommendations. 2. Continue attempts at gentle diuresis as tolerated by hemodynamics and renal function. Additional Lasix dose this evening 3. Monitor tacrolimus level closely given potential interaction with amiodarone. 4. Continue to wean supplemental O2 to maintain oxygen saturations at or above 90%. 5. Continue systemic anticoagulation as ordered. 6. Dietary advancement per speech therapy recommendations. 7. Encourage incentive spirometer use and mobilize patient as tolerated. IMPRESSIONS: 1. Acute hypoxemic respiratory failure secondary to COVID-19 pneumonia Continue current supportive measures. The patient was able to be successfully extubated on January 26. Respiratory status appears to be slowly improving. Continue rate/rhythm control strategy per cardiology recommendations. Continue scheduled gentle diuresis as tolerated by hemodynamics and renal function. Given worsening oxygenation, will give an additional dose of Lasix this evening. Continue therapeutic Lovenox. Dietary advancement per speech therapy recommendations. 2. Acute on chronic kidney disease status post renal transplantation Improving. Defer ongoing hemodialysis need to nephrology. Defer tacrolimus management per nephrology recommendations. Continue diuresis as tolerated by hemodynamics and renal function. We will need to watch tacrolimus levels as patient was placed on amiodarone. 3. Paroxysmal atrial fibrillation with RVR The patient's rate/rhythm has been difficult to control. Cardiology is currently following to assist with management. We will plan to continue current rate/ rhythm control strategy. 4. Hypertension/hyperlipidemia/elevated troponin Complicates care, management, recovery and prognosis. Physical therapy to continue to work with the patient. Continue Lantus and sliding scale insulin coverage. Blood sugars are well controlled Inpatient E&M: [id number] [facility] Hosp L2
--- NOTE | 2020-02-03 10:01 | PCM.PN.REN ---
Patient Problems: Active and Suspected Problems (Last Updated 09/02/18 @ 13:55 by Katheryn Mosqueda) TUCKER (acute kidney injury) (Acute) a fib with rvr (Acute) COVID-19 virus infection (Acute) Acute respiratory failure with hypoxia (Acute) Subjective: no cp/sob feels very tired Objective: Physical examination deferred to preserve PPE and prevent further transmission of COVID-19 - Physical Exam Vitals/I&O's: Vital Signs Temp Pulse Resp BP Pulse Ox 98.6 F 96 18 134/72 H 94 02/03/20 08:48 02/03/20 08:48 02/03/20 08:48 02/03/20 08:48 02/03/20 08:48 Oxygen Flow Rate (L/min) 9 Oxygen Delivery Method Nasal Cannula Weight: 72.5 kg Body Mass Index (BMI) 26.0 Intake and Output for Last 24 Hours 02/01/20 02/02/20 02/03/20 23:59 23:59 23:59 Intake Total 990 / 990 670 / 1170 500 / 500 Output Total 1625 / 1625 1750 / 2100 700 / 700 Balance -635 / -635 -1080 / -930 -200 / -200 Microbiology Past 72 Hours 01/28/20 13:30 Blood Culture (Wb) - Anticubital Right Blood Culture - Final No growth in 5 days. 01/28/20 13:45 Blood Culture (Wb) - Right Wrist Blood Culture - Final No growth in 5 days. 01/26/20 12:30 Blood Culture (Wb) - Anticubital Right Blood Culture - Final Coag Negative Staph 01/26/20 12:30 Blood Culture (Wb) - Right Forearm Bacteria Detection (PCR) - Final Staphylococcus epidermidis mecA Resistance Marker 01/26/20 12:30 Blood Culture (Wb) - Right Forearm Blood Culture - Final Staphylococcus epidermidis Laboratory Results 02/02/20 08:04: Phosphorus 3.7, Magnesium 1.9 02/02/20 11:40: POC Glucose 204 H 02/02/20 16:08: POC Glucose 169 H 02/02/20 22:54: POC Glucose 116 H 02/03/20 04:56: WBC 18.1 H, RBC 3.64 L, Hgb 10.0 L, Hct 32.5 L, MCV 89.3, MCH 27.5, MCHC 30.8 L, RDW Std Deviation 43.8, RDW Coeff of Genaro 13.6, Plt Count 372, MPV 10.1, Immature Gran % (Auto) 2.900 H, Neut % (Auto) 84.3 H, Lymph % (Auto) 6.0 L, [place] % (Auto) 3.5, Eos % (Auto) 3.0, Baso % (Auto) 0.3, Absolute Neuts (auto) 15.3 H, Absolute Lymphs (auto) 1.09, Nucleated RBC % 0.2 02/03/20 04:56: Sodium 135 L, Potassium 4.1, Chloride 104, Carbon Dioxide 23.0, Anion Gap 8, BUN 53 H, Creatinine 1.65 H, Estim Creat Clear Calc 49.52, Est GFR (MDRD) Af Amer 56 L, Est GFR (MDRD) Non-Af 46 L, BUN/Creatinine Ratio 32.1 H, Glucose 90, Calcium 8.8 02/03/20 06:45: POC Glucose 122 H Current Medications Acetaminophen (Acetaminophen 325 Mg Tablet) 650 mg PO Q6H PRN PRN PRN Reason: Pain Score 1-10 Last Admin: 02/01/20 01:57 Dose: 650 mg Documented by: Albuterol Sulfate (Albuterol 2.5 Mg/3 Ml Vial.Neb.) 2.5 mg INHALATION Q2H PRN PRN PRN Reason: WHEEZING Amiodarone HCl (Amiodarone 200 Mg Tablet) 200 mg PO TID [facility] Stop: 02/04/20 23:55 Last Admin: 02/03/20 06:43 Dose: 200 mg Documented by: Amiodarone HCl (Amiodarone 200 Mg Tablet) 200 mg PO BID [facility] Stop: 02/18/20 22:01 Amiodarone HCl (Amiodarone 200 Mg Tablet) 200 mg PO DAILY [facility] Apixaban (Apixaban 5 Mg Tablet) 5 mg PO BID [facility] Last Admin: 02/03/20 08:31 Dose: 5 mg Documented by: Calamine/Phenol (Menthol/Lanolin/Calamine/Znox 113 Gm Tube) 1 applic TOPICAL BID [facility]; Protocol Last Admin: 02/03/20 08:12 Dose: 1 applicatio Documented by: Dextrose (Dextrose 50%-Water 25 Gm/50 Ml Disp.Syrin) 0 gm IV X1 PRN; Protocol PRN Reason: Hypoglycemia Furosemide (Furosemide 40 Mg/4 Ml Vial) 40 mg IV DAILY [facility] Last Admin: 02/03/20 08:26 Dose: 40 mg Documented by: Furosemide (Furosemide 40 Mg/4 Ml Vial) 40 mg IV X1 ONE Stop: 02/03/20 18:01 Glucagon (Glucagon 1 Mg/Ml Syringe) 1 mg IM .X1 PRN PRN Reason: Hypoglycemia Sodium Chloride () 250 mls @ 15 mls/hr IV .[id number] PRN PRN Reason: Saline Flush Last Infusion: 02/02/20 07:58 Dose: Infused Documented by: Sodium Chloride () 250 mls @ 15 mls/hr IV .[id number] PRN PRN Reason: Additional IVPB Infusion Vancomycin IV Pharmacy to Dose (1 ea/ Sodium Chloride) 500 mls @ 250 mls/hr IV PRN PRN; Protocol PRN Reason: Rx to Dose Insulin Glargine (Insulin Glargine 100 Units/Ml Pen) 7 units SC BID [facility] Last Admin: 02/03/20 08:09 Dose: Not Given Documented by: Insulin Human Lispro (Insulin Lispro 100 Unit/Ml Insuln.Pen) 0 unit SC ACHS [facility]; Protocol Last Admin: 02/03/20 07:40 Dose: Not Given Documented by: Metoprolol Tartrate (Metoprolol Tartrate 100 Mg Tablet) 100 mg PO BID [facility] Last Admin: 02/03/20 08:25 Dose: 100 mg Documented by: Ondansetron HCl (Ondansetron 4 Mg/2 Ml Vial) 4 mg IV Q8H PRN PRN PRN Reason: NAUSEA/VOMITING Pantoprazole Sodium (Pantoprazole Sodium 40 Mg Tablet) 40 mg PO BID [facility] Last Admin: 02/03/20 08:14 Dose: 40 mg Documented by: Paroxetine HCl (Paroxetine 20 Mg Tablet) 20 mg PO DAILY [facility] Last Admin: 02/03/20 08:25 Dose: 20 mg Documented by: Prednisone (Prednisone 5 Mg Tablet) 7.5 mg PO DAILY [facility] Last Admin: 02/03/20 08:16 Dose: 7.5 mg Documented by: Senna/Docusate Sodium (Senna/Docusate Sodium 1 Tablet) 2 tablet PO BID [facility] Last Admin: 02/03/20 07:25 Dose: Not Given Documented by: Sodium Chloride (0.9% Saline Lock 10 Ml Syringe) 10 - 40 ml IV UD PRN PRN Reason: SALINE FLUSH Last Admin: 02/03/20 08:12 Dose: 10 ml Documented by: Tacrolimus (Tacrolimus 0.5 Mg Capsule) 1 mg PO BID [facility] Last Admin: 02/03/20 08:25 Dose: 1 mg Documented by: Medical Necessity - Tobacco Use Smoking Status: Former smoker Tobacco Use: Non-smoker Assessment/Plan All Active Problems (Last Updated 09/02/18 @ 13:55 by Katheryn Mosqueda) TUCKER (acute kidney injury) (Acute) a fib with rvr (Acute) COVID-19 virus infection (Acute) Acute respiratory failure with hypoxia (Acute) ESRD s/p renal transplant TUCKER ATN with COVID-19 Hypernatremia resolved Hyperkalemia resolved COVID-19 Scr 1.6 better stable avoid nephrotoxins f/u tacrolimus level still pending Vancomycin dosing per pharmacy to avoid nephrotoxicity d/w patient
--- NOTE | 2020-02-03 10:16 | PCM.PN.HOSP ---
Patient Problems: Active and Suspected Problems (Last Updated 09/02/18 @ 13:55 by Katheryn Mosqueda) TUCKER (acute kidney injury) (Acute) a fib with rvr (Acute) COVID-19 virus infection (Acute) Acute respiratory failure with hypoxia (Acute) Subjective: Currently on 9 L nasal cannula to maintain his oxygen saturations. No new issues overnight Vitals/I&O's: Vital Signs Temp Pulse Resp BP Pulse Ox 98.6 F 96 18 134/72 H 94 02/03/20 08:48 02/03/20 08:48 02/03/20 08:48 02/03/20 08:48 02/03/20 08:48 Oxygen Flow Rate (L/min) 9 Oxygen Delivery Method Nasal Cannula Weight: 159 lb 13.362 oz Body Mass Index (BMI) 26.0 Intake and Output for Last 24 Hours 02/01/20 02/02/20 02/03/20 23:59 23:59 23:59 Intake Total 990 / 990 670 / 1170 500 / 500 Output Total 1625 / 1625 1750 / 2100 700 / 700 Balance -635 / -635 -1080 / -930 -200 / -200 General: Alert, Oriented x3, Cooperative, No apparent distress HEENT: Atraumatic, PERRLA, EOMI, Normocephalic Oral: Moist Mucosa Neck: Supple, No JVD Lungs: Normal air movement, No rhonchi, No wheeze, No rales, Diminished Cardiovascular: Regular rate, Regular Rhythm, Normal S1, Normal S2, Murmur Abdomen: Soft, Non Tender, Non-Distended, No Hepato-splenomegaly Extremities: No edema, Capillary Refill Less than 3 Seconds Skin: No rashes, No breakdown Neurological: Neuro grossly intact, Sensory exam intact to light touch and pain Microbiology Past 72 Hours 01/28/20 13:30 Blood Culture (Wb) - Anticubital Right Blood Culture - Final No growth in 5 days. 01/28/20 13:45 Blood Culture (Wb) - Right Wrist Blood Culture - Final No growth in 5 days. 01/26/20 12:30 Blood Culture (Wb) - Anticubital Right Blood Culture - Final Coag Negative Staph 01/26/20 12:30 Blood Culture (Wb) - Right Forearm Bacteria Detection (PCR) - Final Staphylococcus epidermidis mecA Resistance Marker 01/26/20 12:30 Blood Culture (Wb) - Right Forearm Blood Culture - Final Staphylococcus epidermidis Laboratory Results 02/02/20 08:04: Phosphorus 3.7, Magnesium 1.9 02/02/20 11:40: POC Glucose 204 H 02/02/20 16:08: POC Glucose 169 H 02/02/20 22:54: POC Glucose 116 H 02/03/20 04:56: WBC 18.1 H, RBC 3.64 L, Hgb 10.0 L, Hct 32.5 L, MCV 89.3, MCH 27.5, MCHC 30.8 L, RDW Std Deviation 43.8, RDW Coeff of Genaro 13.6, Plt Count 372, MPV 10.1, Immature Gran % (Auto) 2.900 H, Neut % (Auto) 84.3 H, Lymph % (Auto) 6.0 L, [place] % (Auto) 3.5, Eos % (Auto) 3.0, Baso % (Auto) 0.3, Absolute Neuts (auto) 15.3 H, Absolute Lymphs (auto) 1.09, Nucleated RBC % 0.2 02/03/20 04:56: Sodium 135 L, Potassium 4.1, Chloride 104, Carbon Dioxide 23.0, Anion Gap 8, BUN 53 H, Creatinine 1.65 H, Estim Creat Clear Calc 49.52, Est GFR (MDRD) Af Amer 56 L, Est GFR (MDRD) Non-Af 46 L, BUN/Creatinine Ratio 32.1 H, Glucose 90, Calcium 8.8 02/03/20 06:45: POC Glucose 122 H Current Medications Acetaminophen (Acetaminophen 325 Mg Tablet) 650 mg PO Q6H PRN PRN PRN Reason: Pain Score 1-10 Last Admin: 02/01/20 01:57 Dose: 650 mg Documented by: Albuterol Sulfate (Albuterol 2.5 Mg/3 Ml Vial.Neb.) 2.5 mg INHALATION Q2H PRN PRN PRN Reason: WHEEZING Amiodarone HCl (Amiodarone 200 Mg Tablet) 200 mg PO TID [facility] Stop: 02/04/20 23:55 Last Admin: 02/03/20 06:43 Dose: 200 mg Documented by: Amiodarone HCl (Amiodarone 200 Mg Tablet) 200 mg PO BID [facility] Stop: 02/18/20 22:01 Amiodarone HCl (Amiodarone 200 Mg Tablet) 200 mg PO DAILY [facility] Apixaban (Apixaban 5 Mg Tablet) 5 mg PO BID [facility] Last Admin: 02/03/20 08:31 Dose: 5 mg Documented by: Calamine/Phenol (Menthol/Lanolin/Calamine/Znox 113 Gm Tube) 1 applic TOPICAL BID [facility]; Protocol Last Admin: 02/03/20 08:12 Dose: 1 applicatio Documented by: Dextrose (Dextrose 50%-Water 25 Gm/50 Ml Disp.Syrin) 0 gm IV X1 PRN; Protocol PRN Reason: Hypoglycemia Furosemide (Furosemide 40 Mg/4 Ml Vial) 40 mg IV DAILY [facility] Last Admin: 02/03/20 08:26 Dose: 40 mg Documented by: Furosemide (Furosemide 40 Mg/4 Ml Vial) 40 mg IV X1 ONE Stop: 02/03/20 18:01 Glucagon (Glucagon 1 Mg/Ml Syringe) 1 mg IM .X1 PRN PRN Reason: Hypoglycemia Sodium Chloride () 250 mls @ 15 mls/hr IV .[id number] PRN PRN Reason: Saline Flush Last Infusion: 02/02/20 07:58 Dose: Infused Documented by: Sodium Chloride () 250 mls @ 15 mls/hr IV .[id number] PRN PRN Reason: Additional IVPB Infusion Vancomycin IV Pharmacy to Dose (1 ea/ Sodium Chloride) 500 mls @ 250 mls/hr IV PRN PRN; Protocol PRN Reason: Rx to Dose Insulin Glargine (Insulin Glargine 100 Units/Ml Pen) 7 units SC BID [facility] Last Admin: 02/03/20 08:09 Dose: Not Given Documented by: Insulin Human Lispro (Insulin Lispro 100 Unit/Ml Insuln.Pen) 0 unit SC ACHS [facility]; Protocol Last Admin: 02/03/20 07:40 Dose: Not Given Documented by: Metoprolol Tartrate (Metoprolol Tartrate 100 Mg Tablet) 100 mg PO BID [facility] Last Admin: 02/03/20 08:25 Dose: 100 mg Documented by: Ondansetron HCl (Ondansetron 4 Mg/2 Ml Vial) 4 mg IV Q8H PRN PRN PRN Reason: NAUSEA/VOMITING Pantoprazole Sodium (Pantoprazole Sodium 40 Mg Tablet) 40 mg PO BID [facility] Last Admin: 02/03/20 08:14 Dose: 40 mg Documented by: Paroxetine HCl (Paroxetine 20 Mg Tablet) 20 mg PO DAILY [facility] Last Admin: 02/03/20 08:25 Dose: 20 mg Documented by: Prednisone (Prednisone 5 Mg Tablet) 7.5 mg PO DAILY [facility] Last Admin: 02/03/20 08:16 Dose: 7.5 mg Documented by: Senna/Docusate Sodium (Senna/Docusate Sodium 1 Tablet) 2 tablet PO BID [facility] Last Admin: 02/03/20 07:25 Dose: Not Given Documented by: Sodium Chloride (0.9% Saline Lock 10 Ml Syringe) 10 - 40 ml IV UD PRN PRN Reason: SALINE FLUSH Last Admin: 02/03/20 08:12 Dose: 10 ml Documented by: Tacrolimus (Tacrolimus 0.5 Mg Capsule) 1 mg PO BID [facility] Last Admin: 02/03/20 08:25 Dose: 1 mg Documented by: STROKE Vital Signs/Narrative: Vital Signs Temp Pulse Resp BP Pulse Ox 02/03/20 08:48 98.6 F 96 18 134/72 H 94 02/03/20 08:35 18 94 02/03/20 08:25 96 Medical Necessity - Tobacco Use Smoking Status: Former smoker Tobacco Use: Non-smoker Assessment/Plan All Active Problems (Last Updated 09/02/18 @ 13:55 by Katheryn Mosqueda) TUCKER (acute kidney injury) (Acute) a fib with rvr (Acute) COVID-19 virus infection (Acute) Acute respiratory failure with hypoxia (Acute) 1. Acute hypoxic respiratory failure secondary to acute bilateral COVID-19 pneumonia/MRSE bacteremia/abnormal cardiac enzymes -He completed remdesivir as well as 10 days of Decadron his back on his baseline prednisone -He had the cefepime discontinued and has been maintained on vancomycin, repeat blood cultures were negative -He did have a sputum culture that showed rare gram-positive cocci in clusters -His elevated troponin was likely secondary to demand ischemia. He is on amiodarone to continue managing his new onset A. fib -Continue with Lasix to manage a fluid overload 2. TUCKER on CKD 3/history of renal transplant -Appreciate nephrology's assistance with dialysis as well as management antirejection medications -We will continue to monitor tacrolimus levels 3. New onset A. fib/HTN/HLD/elevated troponin -Troponin secondary to demand ischemia as well as new onset A. fib -Continue with amiodarone -Blood pressure does appear stable -Continue with Eliquis and metoprolol 4. Anxiety/depression -Stable -Continue with Paxil DVT: Eliquis Inpatient E&M: [id number] Subs Hosp L2
--- NOTE | 2020-02-03 10:21 | CASEMGMT ---
Addendum entered by Ary Murray 02/03/20 13:39: SW spoke w/Danielle at [facility], she does anticipate them being able to take pt. She has not heard that the medication is going to be an issue. Pt's insurance company at present is waiving the precert, so when pt's oxygen needs have lowered pt should be able to go to [facility]. SW let pt know via the phone, pt agreeable. SW called pt's parents, spoke w/pt's mother. SW let her know that it is anticipated pt will be able to go to [facility] when he is medically ready, will know for certain when pt is closer to discharge. Pt's mother states understanding and in agreement. SW will continue to follow. [facility] Main Original Note: SW spoke w/Danielle from [facility], as long as his oxygen needs decrease, they may be able to take him. Danielle also inquired about the medication Tacrolimus. She will look into the cost, SW asked if it is too expensive, can he have family bring it in from home. She states will let this SW know. SW will continue to follow. [facility] Main
[2020-02-03 11:25] LABS: Bedside Glucose 170 mg/dL (70-110)
[2020-02-03] MEDS: Insulin Lispro 100 UNIT/ML INSULN.PEN SC ×3 (11:31→20:48)
[2020-02-03] MEDS: Acetaminophen 325 MG Tablet 650 MG PO (15:31)
[2020-02-03 17:16] LABS: Bedside Glucose 195 mg/dL (70-110)
--- NOTE | 2020-02-03 18:12 | PCM.RX.CS ---
Consult Pharmacy has been consulted to manage selected antiobiotic: Vancomycin Type of Consult: Follow-up Labs: Sodium 135 mmol/L (136-145) L 02/03/20 04:56 Potassium 4.1 mmol/L (3.5-5.1) 02/03/20 04:56 Chloride 104 mmol/L (98-107) 02/03/20 04:56 Carbon Dioxide 23.0 mmol/L (21.0-32.0) 02/03/20 04:56 Anion Gap 8 (5-15) 02/03/20 04:56 BUN 53 mg/dL (7-18) H 02/03/20 04:56 Creatinine 1.65 mg/dL (0.70-1.30) H 02/03/20 04:56 Est GFR (MDRD) Af Amer 56 mL/min (>60) L 02/03/20 04:56 Est GFR (MDRD) Non-Af 46 mL/min (>60) L 02/03/20 04:56 BUN/Creatinine Ratio 32.1 RATIO (10-20) H 02/03/20 04:56 Glucose 90 mg/dL (74-106) 02/03/20 04:56 Vancomycin Trough 26.0 ug/mL (5.0-15.0) H 01/31/20 19:20 Random Vancomycin 15.0 ug/mL (0.0-15.0) 02/03/20 16:00 Microbiology: Microbiology 01/28/20 13:30 Blood Culture (Wb) - Anticubital Right Blood Culture - Final No growth in 5 days. 01/28/20 13:45 Blood Culture (Wb) - Right Wrist Blood Culture - Final No growth in 5 days. 01/26/20 12:30 Blood Culture (Wb) - Anticubital Right Blood Culture - Final Coag Negative Staph 01/26/20 12:30 Blood Culture (Wb) - Right Forearm Bacteria Detection (PCR) - Final Staphylococcus epidermidis mecA Resistance Marker 01/26/20 12:30 Blood Culture (Wb) - Right Forearm Blood Culture - Final Staphylococcus epidermidis 01/26/20 13:12 Sputum, Tracheal Aspirate Gram Stain - Final 01/26/20 13:12 Sputum, Tracheal Aspirate Respiratory Culture - Final Presumptive C albicans 01/18/20 16:25 Blood Culture (Wb) - Anticubital Left Blood Culture - Final No growth in 5 days. 01/18/20 16:36 Blood Culture (Wb) - Left Forearm Blood Culture - Final No growth in 5 days. 01/19/20 01:45 Sputum, Induced/Lukens Gram Stain - Final 01/19/20 01:45 Sputum, Induced/Lukens Respiratory Culture - Final Weight used for dosin.5 kg Estimated Creatinine Clearance: 49.5ML/MIN Goal Trough: 15-20 mcg/mL Pharmacy Plan for Drug Dosing: The vancomycin random level drawn today at 16:00 came back as 15.0 (drawn about 23.5 hours after the 1000mg x1 dose given yesterday). This is below 20 so we can re-dose again with 1000mg x1 tonight. The patient's SCr has improved (down to 1.65 today) but since renal function is still unstable we will continue to dose based off of random levels and get another random level tomorrow. Further dosing will be determined at that time. Pharmacy Service will continue to monitor and adjust dosing as required. Follow-Up Labs: Trough Vancomycin - random level Labs to be done on [date and time ordered]: 02/04/20 18:00
[2020-02-03] MEDS: Vancomycin IV 1,000 MG/200 ML BAG 200 MG IV (18:50)
[2020-02-03 21:56] LABS: Bedside Glucose 226 mg/dL (70-110)
--- NOTE | 2020-02-03 23:00 | CPS ---
PT declined BiPAP
[2020-02-04] VITALS (15 sets, daily range): BP systolic 113–123; BP diastolic 68–72; PULSE 78–104; RESP 12–24; TEMP 36.1–36.6; O2SAT 94–99
[2020-02-04] MEDS: Amiodarone 200 MG Tablet PO ×3 (06:53→20:39)
[2020-02-04 07:06] LABS: Bedside Glucose 94 mg/dL (70-110)
[2020-02-04 07:55] LABS: Anion Gap 9 (5-15); BUN 58 mg/dL (7-18); BUN/Creat Ratio 33.9 RATIO (10-20); Calcium,Total 9.1 mg/dL (8.5-10.1); Chloride 104 mmol/L (98-107); Creatinine, Serum 1.71 mg/dL (0.70-1.30); EST Glomerular Filtration Rate 44 mL/min (>60); Est Glom Filt Rate - Afr Amer 54 mL/min (>60); Estimated Creatinine Clearance 47.78 ml/min; Glucose 94 mg/dL (74-106); Potassium 4.4 mmol/L (3.5-5.1); Sodium Level 136 mmol/L (136-145)
--- NOTE | 2020-02-04 09:48 | PCM.PN.HOSP ---
Patient Problems: Active and Suspected Problems (Last Updated 09/02/18 @ 13:55 by Katheryn Mosqueda) TUCKER (acute kidney injury) (Acute) a fib with rvr (Acute) COVID-19 virus infection (Acute) Acute respiratory failure with hypoxia (Acute) Subjective: No significant change from yesterday. He has improved oxygenation requirements continue to advise incentive spirometry. Currently on 7 L nasal cannula Vitals/I&O's: Vital Signs Temp Pulse Resp BP Pulse Ox 97.4 F L 91 20 H 123/72 H 95 02/04/20 02:45 02/04/20 07:00 02/04/20 02:45 02/04/20 02:45 02/04/20 02:45 Oxygen Flow Rate (L/min) 8 Oxygen Delivery Method Nasal Cannula Weight: 153 lb 14.122 oz Body Mass Index (BMI) 26.0 Intake and Output for Last 24 Hours 02/02/20 02/03/20 02/04/20 23:59 23:59 23:59 Intake Total 670 / 1170 700 / 700 Output Total 1750 / 2100 1700 / 1700 625 / 625 Balance -1080 / -930 -1000 / -1000 -625 / -625 General: Alert, Oriented x3, Cooperative, No apparent distress HEENT: Atraumatic, PERRLA, EOMI, Normocephalic Oral: Moist Mucosa Neck: Supple, No JVD Lungs: Normal air movement, No rhonchi, No wheeze, No rales, Diminished Cardiovascular: Regular rate, Regular Rhythm, Normal S1, Normal S2, Murmur Abdomen: Soft, Non Tender, Non-Distended, No Hepato-splenomegaly Extremities: No edema, Capillary Refill Less than 3 Seconds Skin: No rashes, No breakdown Neurological: Neuro grossly intact, Sensory exam intact to light touch and pain Microbiology Past 72 Hours 01/28/20 13:30 Blood Culture (Wb) - Anticubital Right Blood Culture - Final No growth in 5 days. 01/28/20 13:45 Blood Culture (Wb) - Right Wrist Blood Culture - Final No growth in 5 days. 01/26/20 12:30 Blood Culture (Wb) - Anticubital Right Blood Culture - Final Coag Negative Staph 01/26/20 12:30 Blood Culture (Wb) - Right Forearm Bacteria Detection (PCR) - Final Staphylococcus epidermidis mecA Resistance Marker 01/26/20 12:30 Blood Culture (Wb) - Right Forearm Blood Culture - Final Staphylococcus epidermidis Laboratory Results 02/03/20 11:05: POC Glucose 170 H 02/03/20 16:00: Random Vancomycin 15.0 02/03/20 17:02: POC Glucose 195 H 02/03/20 20:47: POC Glucose 226 H 02/04/20 06:55: POC Glucose 94 02/04/20 07:00: Sodium 136, Potassium 4.4, Chloride 104, Carbon Dioxide 23.0, Anion Gap 9, BUN 58 H, Creatinine 1.71 H, Estim Creat Clear Calc 47.78, Est GFR (MDRD) Af Amer 54 L, Est GFR (MDRD) Non-Af 44 L, BUN/Creatinine Ratio 33.9 H, Glucose 94, Calcium 9.1 Current Medications Acetaminophen (Acetaminophen 325 Mg Tablet) 650 mg PO Q6H PRN PRN PRN Reason: Pain Score 1-10 Last Admin: 02/03/20 15:31 Dose: 650 mg Documented by: Albuterol Sulfate (Albuterol 2.5 Mg/3 Ml Vial.Neb.) 2.5 mg INHALATION Q2H PRN PRN PRN Reason: WHEEZING Amiodarone HCl (Amiodarone 200 Mg Tablet) 200 mg PO TID [facility] Stop: 02/04/20 23:55 Last Admin: 02/04/20 06:53 Dose: 200 mg Documented by: Amiodarone HCl (Amiodarone 200 Mg Tablet) 200 mg PO BID [facility] Stop: 02/18/20 22:01 Amiodarone HCl (Amiodarone 200 Mg Tablet) 200 mg PO DAILY [facility] Apixaban (Apixaban 5 Mg Tablet) 5 mg PO BID [facility] Last Admin: 02/03/20 20:43 Dose: 5 mg Documented by: Calamine/Phenol (Menthol/Lanolin/Calamine/Znox 113 Gm Tube) 1 applic TOPICAL BID [facility]; Protocol Last Admin: 02/03/20 20:43 Dose: 1 applicatio Documented by: Dextrose (Dextrose 50%-Water 25 Gm/50 Ml Disp.Syrin) 0 gm IV X1 PRN; Protocol PRN Reason: Hypoglycemia Furosemide (Furosemide 40 Mg/4 Ml Vial) 40 mg IV DAILY [facility] Last Admin: 02/03/20 08:26 Dose: 40 mg Documented by: Glucagon (Glucagon 1 Mg/Ml Syringe) 1 mg IM .X1 PRN PRN Reason: Hypoglycemia Sodium Chloride () 250 mls @ 15 mls/hr IV .[id number] PRN PRN Reason: Saline Flush Last Infusion: 02/02/20 07:58 Dose: Infused Documented by: Sodium Chloride () 250 mls @ 15 mls/hr IV .[id number] PRN PRN Reason: Additional IVPB Infusion Vancomycin IV Pharmacy to Dose (1 ea/ Sodium Chloride) 500 mls @ 250 mls/hr IV PRN PRN; Protocol PRN Reason: Rx to Dose Insulin Glargine (Insulin Glargine 100 Units/Ml Pen) 7 units SC BID [facility] Last Admin: 02/03/20 20:48 Dose: 7 u Documented by: Insulin Human Lispro (Insulin Lispro 100 Unit/Ml Insuln.Pen) 0 unit SC ACHS [facility]; Protocol Last Admin: 02/04/20 06:55 Dose: Not Given Documented by: Metoprolol Tartrate (Metoprolol Tartrate 100 Mg Tablet) 100 mg PO BID [facility] Last Admin: 02/03/20 20:43 Dose: 100 mg Documented by: Ondansetron HCl (Ondansetron 4 Mg/2 Ml Vial) 4 mg IV Q8H PRN PRN PRN Reason: NAUSEA/VOMITING Pantoprazole Sodium (Pantoprazole Sodium 40 Mg Tablet) 40 mg PO BID [facility] Last Admin: 02/03/20 20:43 Dose: 40 mg Documented by: Paroxetine HCl (Paroxetine 20 Mg Tablet) 20 mg PO DAILY [facility] Last Admin: 02/03/20 08:25 Dose: 20 mg Documented by: Prednisone (Prednisone 5 Mg Tablet) 7.5 mg PO DAILY [facility] Last Admin: 02/03/20 08:16 Dose: 7.5 mg Documented by: Senna/Docusate Sodium (Senna/Docusate Sodium 1 Tablet) 2 tablet PO BID [facility] Last Admin: 02/03/20 20:49 Dose: Not Given Documented by: Sodium Chloride (0.9% Saline Lock 10 Ml Syringe) 10 - 40 ml IV UD PRN PRN Reason: SALINE FLUSH Last Admin: 02/03/20 18:50 Dose: 10 ml Documented by: Tacrolimus (Tacrolimus 0.5 Mg Capsule) 1 mg PO BID [facility] Last Admin: 02/03/20 20:42 Dose: 1 mg Documented by: STROKE Vital Signs/Narrative: Vital Signs Pulse 02/04/20 07:00 91 Medical Necessity - Tobacco Use Smoking Status: Former smoker Tobacco Use: Non-smoker Assessment/Plan All Active Problems (Last Updated 09/02/18 @ 13:55 by Katheryn Mosqueda) TUCKER (acute kidney injury) (Acute) a fib with rvr (Acute) COVID-19 virus infection (Acute) Acute respiratory failure with hypoxia (Acute) 1. Acute hypoxic respiratory failure secondary to acute bilateral COVID-19 pneumonia/MRSE bacteremia/abnormal cardiac enzymes -He completed remdesivir as well as 10 days of Decadron his back on his baseline prednisone -He had the cefepime discontinued and has been maintained on vancomycin, repeat blood cultures were negative -He did have a sputum culture that showed rare gram-positive cocci in clusters -His elevated troponin was likely secondary to demand ischemia. He is on amiodarone to continue managing his new onset A. fib -Continue with Lasix to manage a fluid overload 2. TUCKER on CKD 3/history of renal transplant -Appreciate nephrology's assistance with dialysis as well as management antirejection medications -We will continue to monitor tacrolimus levels 3. New onset A. fib/HTN/HLD/elevated troponin -Troponin secondary to demand ischemia as well as new onset A. fib -Continue with amiodarone -Blood pressure does appear stable -Continue with Eliquis and metoprolol 4. Anxiety/depression -Stable -Continue with Paxil DVT: Eliquis Inpatient E&M: 97440 Subs Hosp L2
[2020-02-04] MEDS: APIXABAN 5 MG TABLET PO ×2 (10:01→20:40)
[2020-02-04] MEDS: Menthol/Lanolin/Calamine/Znox 113 GM Tube 1 APPLIC TOPICAL ×2 (10:01→20:39)
[2020-02-04] MEDS: Pantoprazole Sodium 40 MG Tablet PO ×2 (10:01→20:42)
[2020-02-04] MEDS: predniSONE 5 MG Tablet 7.5 MG PO (10:01)
[2020-02-04] MEDS: Tacrolimus 0.5 MG Capsule 1 MG PO ×2 (10:02→20:43)
[2020-02-04] MEDS: Senna/Docusate Sodium 1 Tablet 2 TABLET PO (10:03)
[2020-02-04] MEDS: Paroxetine 20 MG Tablet PO (10:04)
[2020-02-04] MEDS: Metoprolol Tartrate 100 MG Tablet PO ×2 (10:04→20:42)
[2020-02-04] MEDS: Furosemide 40 MG/4 ML Vial IV (10:04)
--- NOTE | 2020-02-04 10:11 | PCM.PN.PUL ---
Patient Problems: Active and Suspected Problems (Last Updated 09/02/18 @ 13:55 by Katheryn Mosqueda) TUCKER (acute kidney injury) (Acute) a fib with rvr (Acute) COVID-19 virus infection (Acute) Acute respiratory failure with hypoxia (Acute) Subjective: Patient did well overnight. No acute issues were reported. Oxygenation did improve following diuresis. Patient with no complaints this morning. - Physical Exam Vitals/I&O's: Vital Signs Temp Pulse Resp BP Pulse Ox 36.1 C L 100 18 115/71 94 02/04/20 08:45 02/04/20 08:45 02/04/20 08:45 02/04/20 08:45 02/04/20 08:45 Oxygen Flow Rate (L/min) 7 Oxygen Delivery Method Nasal Cannula Weight: 69.8 kg Body Mass Index (BMI) 26.0 Intake and Output for Last 24 Hours 02/02/20 02/03/20 02/04/20 23:59 23:59 23:59 Intake Total 670 / 1170 700 / 700 Output Total 1750 / 2100 1700 / 1700 625 / 625 Balance -1080 / -930 -1000 / -1000 -625 / -625 General: Alert, Oriented x3, Cooperative, No apparent distress, - - Appears older than stated age. No conversational dyspnea. HEENT: Atraumatic, PERRLA, EOMI, Normocephalic, - - No scleral icterus or injection noted Oral: Moist Mucosa, No Gingival or Mucosal Lesions/ Ulcerations Neck: Supple, No JVD, No Nodes, Trachea Midline Lungs: No rhonchi, No wheeze, No rales, Diminished Cardiovascular: Regular rate, Normal S1, Normal S2, No murmurs, No rub noted, No Gallop Abdomen: Bowel Sounds Present, Soft, Non Tender, Non-Distended Extremities: No clubbing, No cyanosis, No edema, Capillary Refill Less than 3 Seconds Skin: No rashes, No breakdown Musculoskeletal: No Tenderness to Palpation of Joints or Extremities Lymphatic: No Cervical, Supraclavicular, or Inguinal Adenopathy Neurological: Cranial nerves II-XII grossly intact, Neuro grossly intact, Motor Exam 5/5 strength throughout Psych/Mental Status: Alert and oriented to time, place, person, mood and affect Microbiology Past 72 Hours 01/28/20 13:30 Blood Culture (Wb) - Anticubital Right Blood Culture - Final No growth in 5 days. 01/28/20 13:45 Blood Culture (Wb) - Right Wrist Blood Culture - Final No growth in 5 days. 01/26/20 12:30 Blood Culture (Wb) - Anticubital Right Blood Culture - Final Coag Negative Staph 01/26/20 12:30 Blood Culture (Wb) - Right Forearm Bacteria Detection (PCR) - Final Staphylococcus epidermidis mecA Resistance Marker 01/26/20 12:30 Blood Culture (Wb) - Right Forearm Blood Culture - Final Staphylococcus epidermidis Laboratory Results 02/03/20 11:05: POC Glucose 170 H 02/03/20 16:00: Random Vancomycin 15.0 02/03/20 17:02: POC Glucose 195 H 02/03/20 20:47: POC Glucose 226 H 02/04/20 06:55: POC Glucose 94 02/04/20 07:00: Sodium 136, Potassium 4.4, Chloride 104, Carbon Dioxide 23.0, Anion Gap 9, BUN 58 H, Creatinine 1.71 H, Estim Creat Clear Calc 47.78, Est GFR (MDRD) Af Amer 54 L, Est GFR (MDRD) Non-Af 44 L, BUN/Creatinine Ratio 33.9 H, Glucose 94, Calcium 9.1 Current Medications Acetaminophen (Acetaminophen 325 Mg Tablet) 650 mg PO Q6H PRN PRN PRN Reason: Pain Score 1-10 Last Admin: 02/03/20 15:31 Dose: 650 mg Documented by: Albuterol Sulfate (Albuterol 2.5 Mg/3 Ml Vial.Neb.) 2.5 mg INHALATION Q2H PRN PRN PRN Reason: WHEEZING Amiodarone HCl (Amiodarone 200 Mg Tablet) 200 mg PO TID [facility] Stop: 02/04/20 23:55 Last Admin: 02/04/20 06:53 Dose: 200 mg Documented by: Amiodarone HCl (Amiodarone 200 Mg Tablet) 200 mg PO BID [facility] Stop: 02/18/20 22:01 Amiodarone HCl (Amiodarone 200 Mg Tablet) 200 mg PO DAILY [facility] Apixaban (Apixaban 5 Mg Tablet) 5 mg PO BID [facility] Last Admin: 02/03/20 20:43 Dose: 5 mg Documented by: Calamine/Phenol (Menthol/Lanolin/Calamine/Znox 113 Gm Tube) 1 applic TOPICAL BID [facility]; Protocol Last Admin: 02/03/20 20:43 Dose: 1 applicatio Documented by: Dextrose (Dextrose 50%-Water 25 Gm/50 Ml Disp.Syrin) 0 gm IV X1 PRN; Protocol PRN Reason: Hypoglycemia Furosemide (Furosemide 40 Mg/4 Ml Vial) 40 mg IV DAILY [facility] Last Admin: 02/03/20 08:26 Dose: 40 mg Documented by: Glucagon (Glucagon 1 Mg/Ml Syringe) 1 mg IM .X1 PRN PRN Reason: Hypoglycemia Sodium Chloride () 250 mls @ 15 mls/hr IV .[id number] PRN PRN Reason: Saline Flush Last Infusion: 02/02/20 07:58 Dose: Infused Documented by: Sodium Chloride () 250 mls @ 15 mls/hr IV .[id number] PRN PRN Reason: Additional IVPB Infusion Vancomycin IV Pharmacy to Dose (1 ea/ Sodium Chloride) 500 mls @ 250 mls/hr IV PRN PRN; Protocol PRN Reason: Rx to Dose Insulin Glargine (Insulin Glargine 100 Units/Ml Pen) 7 units SC BID [facility] Last Admin: 02/03/20 20:48 Dose: 7 u Documented by: Insulin Human Lispro (Insulin Lispro 100 Unit/Ml Insuln.Pen) 0 unit SC [facility]; Protocol Last Admin: 02/04/20 06:55 Dose: Not Given Documented by: Metoprolol Tartrate (Metoprolol Tartrate 100 Mg Tablet) 100 mg PO BID [facility] Last Admin: 02/03/20 20:43 Dose: 100 mg Documented by: Ondansetron HCl (Ondansetron 4 Mg/2 Ml Vial) 4 mg IV Q8H PRN PRN PRN Reason: NAUSEA/VOMITING Pantoprazole Sodium (Pantoprazole Sodium 40 Mg Tablet) 40 mg PO BID [facility] Last Admin: 02/03/20 20:43 Dose: 40 mg Documented by: Paroxetine HCl (Paroxetine 20 Mg Tablet) 20 mg PO DAILY [facility] Last Admin: 02/03/20 08:25 Dose: 20 mg Documented by: Prednisone (Prednisone 5 Mg Tablet) 7.5 mg PO DAILY [facility] Last Admin: 02/03/20 08:16 Dose: 7.5 mg Documented by: Senna/Docusate Sodium (Senna/Docusate Sodium 1 Tablet) 2 tablet PO BID [facility] Last Admin: 02/03/20 20:49 Dose: Not Given Documented by: Sodium Chloride (0.9% Saline Lock 10 Ml Syringe) 10 - 40 ml IV UD PRN PRN Reason: SALINE FLUSH Last Admin: 02/03/20 18:50 Dose: 10 ml Documented by: Tacrolimus (Tacrolimus 0.5 Mg Capsule) 1 mg PO BID [facility] Last Admin: 02/03/20 20:42 Dose: 1 mg Documented by: Medical Necessity - Tobacco Use Smoking Status: Former smoker Tobacco Use: Non-smoker Assessment/Plan All Active Problems (Last Updated 09/02/18 @ 13:55 by Katheryn Mosqueda) TUCKER (acute kidney injury) (Acute) a fib with rvr (Acute) COVID-19 virus infection (Acute) Acute respiratory failure with hypoxia (Acute) RECOMMENDATIONS: 1. Continue rate/rhythm control strategy per cardiology recommendations. 2. Transition to p.o. Lasix 3. Monitor tacrolimus level closely given potential interaction with amiodarone. 4. Continue to wean supplemental O2 to maintain oxygen saturations at or above 90%. 5. Continue systemic anticoagulation as ordered. 6. Dietary advancement per speech therapy recommendations. 7. Encourage incentive spirometer use and mobilize patient as tolerated. IMPRESSIONS: 1. Acute hypoxemic respiratory failure secondary to COVID-19 pneumonia Continue current supportive measures. The patient was able to be successfully extubated on January 26. Respiratory status appears to be slowly improving. Continue rate/rhythm control strategy per cardiology recommendations. We will transition to p.o. Lasix twice daily and monitor renal function. Patient will need a walking oximetry prior to discharge. Continue therapeutic Lovenox. Dietary advancement per speech therapy recommendations. 2. Acute on chronic kidney disease status post renal transplantation Improving. Defer ongoing hemodialysis need to nephrology. Defer tacrolimus management per nephrology recommendations. Continue diuresis as tolerated by hemodynamics and renal function. We will need to watch tacrolimus levels as patient was placed on amiodarone. Defer to nephrology on recommendations for dosing. 3. Paroxysmal atrial fibrillation with RVR The patient's rate/rhythm has been difficult to control. Cardiology is currently following to assist with management. We will plan to continue current rate/ rhythm control strategy. 4. Hypertension/hyperlipidemia/elevated troponin Complicates care, management, recovery and prognosis. Physical therapy to continue to work with the patient. Continue Lantus and sliding scale insulin coverage. Blood sugars are well controlled Inpatient E&M: 90449 Subs Hosp L2
[2020-02-04] MEDS: Insulin Lispro 100 UNIT/ML INSULN.PEN SC ×3 (12:07→20:40)
--- NOTE | 2020-02-04 12:13 | PCM.PN.REN ---
Patient Problems: Active and Suspected Problems (Last Updated 09/02/18 @ 13:55 by Katheryn Mosqueda) TUCKER (acute kidney injury) (Acute) a fib with rvr (Acute) COVID-19 virus infection (Acute) Acute respiratory failure with hypoxia (Acute) Subjective: feels tired still has some shortness of breath and cough no other complaints. Objective: PE deferred to preserve PPE and prevent further transmission of covid-19 - Physical Exam Vitals/I&O's: Vital Signs Temp Pulse Resp BP Pulse Ox 97.0 F L 100 18 115/71 94 02/04/20 08:45 02/04/20 10:04 02/04/20 08:45 02/04/20 10:04 02/04/20 08:45 Oxygen Flow Rate (L/min) 7 Oxygen Delivery Method Nasal Cannula Weight: 69.8 kg Body Mass Index (BMI) 26.0 Intake and Output for Last 24 Hours 02/02/20 02/03/20 02/04/20 23:59 23:59 23:59 Intake Total 670 / 1170 700 / 700 240 / 240 Output Total 1750 / 2100 1700 / 1700 1225 / 1225 Balance -1080 / -930 -1000 / -1000 -985 / -985 Microbiology Past 72 Hours 01/28/20 13:30 Blood Culture (Wb) - Anticubital Right Blood Culture - Final No growth in 5 days. 01/28/20 13:45 Blood Culture (Wb) - Right Wrist Blood Culture - Final No growth in 5 days. 01/26/20 12:30 Blood Culture (Wb) - Anticubital Right Blood Culture - Final Coag Negative Staph Laboratory Results 02/03/20 16:00: Random Vancomycin 15.0 02/03/20 17:02: POC Glucose 195 H 02/03/20 20:47: POC Glucose 226 H 02/04/20 06:55: POC Glucose 94 02/04/20 07:00: Sodium 136, Potassium 4.4, Chloride 104, Carbon Dioxide 23.0, Anion Gap 9, BUN 58 H, Creatinine 1.71 H, Estim Creat Clear Calc 47.78, Est GFR (MDRD) Af Amer 54 L, Est GFR (MDRD) Non-Af 44 L, BUN/Creatinine Ratio 33.9 H, Glucose 94, Calcium 9.1 Current Medications Acetaminophen (Acetaminophen 325 Mg Tablet) 650 mg PO Q6H PRN PRN PRN Reason: Pain Score 1-10 Last Admin: 02/03/20 15:31 Dose: 650 mg Documented by: Albuterol Sulfate (Albuterol 2.5 Mg/3 Ml Vial.Neb.) 2.5 mg INHALATION Q2H PRN PRN PRN Reason: WHEEZING Amiodarone HCl (Amiodarone 200 Mg Tablet) 200 mg PO TID [facility] Stop: 02/04/20 23:55 Last Admin: 02/04/20 06:53 Dose: 200 mg Documented by: Amiodarone HCl (Amiodarone 200 Mg Tablet) 200 mg PO BID [facility] Stop: 02/18/20 22:01 Amiodarone HCl (Amiodarone 200 Mg Tablet) 200 mg PO DAILY [facility] Apixaban (Apixaban 5 Mg Tablet) 5 mg PO BID [facility] Last Admin: 02/04/20 10:01 Dose: 5 mg Documented by: Calamine/Phenol (Menthol/Lanolin/Calamine/Znox 113 Gm Tube) 1 applic TOPICAL BID [facility]; Protocol Last Admin: 02/04/20 10:01 Dose: 1 applicatio Documented by: Dextrose (Dextrose 50%-Water 25 Gm/50 Ml Disp.Syrin) 0 gm IV X1 PRN; Protocol PRN Reason: Hypoglycemia Furosemide (Furosemide 40 Mg Tablet) 40 mg PO BID@1000,1800 KEARA Glucagon (Glucagon 1 Mg/Ml Syringe) 1 mg IM .X1 PRN PRN Reason: Hypoglycemia Sodium Chloride () 250 mls @ 15 mls/hr IV .[id number] PRN PRN Reason: Saline Flush Last Infusion: 02/02/20 07:58 Dose: Infused Documented by: Sodium Chloride () 250 mls @ 15 mls/hr IV .[id number] PRN PRN Reason: Additional IVPB Infusion Vancomycin IV Pharmacy to Dose (1 ea/ Sodium Chloride) 500 mls @ 250 mls/hr IV PRN PRN; Protocol PRN Reason: Rx to Dose Insulin Glargine (Insulin Glargine 100 Units/Ml Pen) 7 units SC BID [facility] Last Admin: 02/04/20 10:05 Dose: 7 u Documented by: Insulin Human Lispro (Insulin Lispro 100 Unit/Ml Insuln.Pen) 0 unit SC ACHS [facility]; Protocol Last Admin: 02/04/20 12:07 Dose: 4 u Documented by: Metoprolol Tartrate (Metoprolol Tartrate 100 Mg Tablet) 100 mg PO BID [facility] Last Admin: 02/04/20 10:04 Dose: 100 mg Documented by: Ondansetron HCl (Ondansetron 4 Mg/2 Ml Vial) 4 mg IV Q8H PRN PRN PRN Reason: NAUSEA/VOMITING Pantoprazole Sodium (Pantoprazole Sodium 40 Mg Tablet) 40 mg PO BID [facility] Last Admin: 02/04/20 10:01 Dose: 40 mg Documented by: Paroxetine HCl (Paroxetine 20 Mg Tablet) 20 mg PO DAILY [facility] Last Admin: 02/04/20 10:04 Dose: 20 mg Documented by: Prednisone (Prednisone 5 Mg Tablet) 7.5 mg PO DAILY [facility] Last Admin: 02/04/20 10:01 Dose: 7.5 mg Documented by: Senna/Docusate Sodium (Senna/Docusate Sodium 1 Tablet) 2 tablet PO BID [facility] Last Admin: 02/04/20 10:03 Dose: 2 tablet Documented by: Sodium Chloride (0.9% Saline Lock 10 Ml Syringe) 10 - 40 ml IV UD PRN PRN Reason: SALINE FLUSH Last Admin: 02/03/20 18:50 Dose: 10 ml Documented by: Tacrolimus (Tacrolimus 0.5 Mg Capsule) 1 mg PO BID [facility] Last Admin: 02/04/20 10:02 Dose: 1 mg Documented by: Medical Necessity - Tobacco Use Smoking Status: Former smoker Tobacco Use: Non-smoker Assessment/Plan All Active Problems (Last Updated 09/02/18 @ 13:55 by Katheryn Mosqueda) TUCKER (acute kidney injury) (Acute) a fib with rvr (Acute) COVID-19 virus infection (Acute) Acute respiratory failure with hypoxia (Acute) ESRD s/p renal transplant TUCKER ATN with COVID-19 Hypernatremia resolved Hyperkalemia resolved COVID-19 Scr 1.7 relatively stable avoid nephrotoxins f/u tacrolimus level still pending now back on Tac 1 mg po bid home dose. Vancomycin dosing per pharmacy to avoid nephrotoxicity d/w patient
[2020-02-04] MEDS: Acetaminophen 325 MG Tablet 650 MG PO (12:14)
[2020-02-04 12:20] LABS: Bedside Glucose 253 mg/dL (70-110)
--- NOTE | 2020-02-04 16:00 | PN.ID_ITS ---
Patient Problems: Active and Suspected Problems (Last Updated 09/02/18 @ 13:55 by Katheryn Mosqueda) TUCKER (acute kidney injury) (Acute) a fib with rvr (Acute) COVID-19 virus infection (Acute) Acute respiratory failure with hypoxia (Acute) Subjective: Feeling better, breathing improved, no fever - Physical Exam Vitals/I&O's: Vital Signs Temp Pulse Resp BP Pulse Ox 97.3 F L 83 18 121/72 H 99 02/04/20 14:45 02/04/20 15:00 02/04/20 14:45 02/04/20 14:45 02/04/20 14:45 Oxygen Flow Rate (L/min) 7 Oxygen Delivery Method Nasal Cannula Weight: 69.8 kg Body Mass Index (BMI) 26.0 Intake and Output for Last 24 Hours 02/02/20 02/03/20 02/04/20 23:59 23:59 23:59 Intake Total 670 / 1170 700 / 700 240 / 240 Output Total 1750 / 2100 1700 / 1700 1225 / 1225 Balance -1080 / -930 -1000 / -1000 -985 / -985 General: Alert, Cooperative, No apparent distress Lungs: Clear to auscultation, Diminished Cardiovascular: Regular rate, Regular Rhythm Abdomen: Soft, Non Tender, Non-Distended Skin: No rashes Microbiology Past 72 Hours 01/28/20 13:30 Blood Culture (Wb) - Anticubital Right Blood Culture - Final No growth in 5 days. 01/28/20 13:45 Blood Culture (Wb) - Right Wrist Blood Culture - Final No growth in 5 days. Laboratory Results 02/03/20 16:00: Random Vancomycin 15.0 02/03/20 17:02: POC Glucose 195 H 02/03/20 20:47: POC Glucose 226 H 02/04/20 06:55: POC Glucose 94 02/04/20 07:00: Sodium 136, Potassium 4.4, Chloride 104, Carbon Dioxide 23.0, Anion Gap 9, BUN 58 H, Creatinine 1.71 H, Estim Creat Clear Calc 47.78, Est GFR (MDRD) Af Amer 54 L, Est GFR (MDRD) Non-Af 44 L, BUN/Creatinine Ratio 33.9 H, Glucose 94, Calcium 9.1 02/04/20 12:06: POC Glucose 253 H Current Medications Acetaminophen (Acetaminophen 325 Mg Tablet) 650 mg PO Q6H PRN PRN PRN Reason: Pain Score 1-10 Last Admin: 02/04/20 12:14 Dose: 650 mg Documented by: Albuterol Sulfate (Albuterol 2.5 Mg/3 Ml Vial.Neb.) 2.5 mg INHALATION Q2H PRN PRN PRN Reason: WHEEZING Amiodarone HCl (Amiodarone 200 Mg Tablet) 200 mg PO TID [facility] Stop: 02/04/20 23:55 Last Admin: 02/04/20 13:44 Dose: 200 mg Documented by: Amiodarone HCl (Amiodarone 200 Mg Tablet) 200 mg PO BID [facility] Stop: 02/18/20 22:01 Amiodarone HCl (Amiodarone 200 Mg Tablet) 200 mg PO DAILY [facility] Apixaban (Apixaban 5 Mg Tablet) 5 mg PO BID [facility] Last Admin: 02/04/20 10:01 Dose: 5 mg Documented by: Calamine/Phenol (Menthol/Lanolin/Calamine/Znox 113 Gm Tube) 1 applic TOPICAL BID [facility]; Protocol Last Admin: 02/04/20 10:01 Dose: 1 applicatio Documented by: Dextrose (Dextrose 50%-Water 25 Gm/50 Ml Disp.Syrin) 0 gm IV X1 PRN; Protocol PRN Reason: Hypoglycemia Furosemide (Furosemide 40 Mg Tablet) 40 mg PO BID@1000,1800 [facility] Glucagon (Glucagon 1 Mg/Ml Syringe) 1 mg IM .X1 PRN PRN Reason: Hypoglycemia Sodium Chloride () 250 mls @ 15 mls/hr IV .[id number] PRN PRN Reason: Saline Flush Last Infusion: 02/02/20 07:58 Dose: Infused Documented by: Sodium Chloride () 250 mls @ 15 mls/hr IV .[id number] PRN PRN Reason: Additional IVPB Infusion Vancomycin IV Pharmacy to Dose (1 ea/ Sodium Chloride) 500 mls @ 250 mls/hr IV PRN PRN; Protocol PRN Reason: Rx to Dose Insulin Glargine (Insulin Glargine 100 Units/Ml Pen) 7 units SC BID [facility] Last Admin: 02/04/20 10:05 Dose: 7 u Documented by: Insulin Human Lispro (Insulin Lispro 100 Unit/Ml Insuln.Pen) 0 unit SC ACHS [facility]; Protocol Last Admin: 02/04/20 12:07 Dose: 4 u Documented by: Metoprolol Tartrate (Metoprolol Tartrate 100 Mg Tablet) 100 mg PO BID [facility] Last Admin: 02/04/20 10:04 Dose: 100 mg Documented by: Ondansetron HCl (Ondansetron 4 Mg/2 Ml Vial) 4 mg IV Q8H PRN PRN PRN Reason: NAUSEA/VOMITING Pantoprazole Sodium (Pantoprazole Sodium 40 Mg Tablet) 40 mg PO BID [facility] Last Admin: 02/04/20 10:01 Dose: 40 mg Documented by: Paroxetine HCl (Paroxetine 20 Mg Tablet) 20 mg PO DAILY [facility] Last Admin: 02/04/20 10:04 Dose: 20 mg Documented by: Prednisone (Prednisone 5 Mg Tablet) 7.5 mg PO DAILY [facility] Last Admin: 02/04/20 10:01 Dose: 7.5 mg Documented by: Senna/Docusate Sodium (Senna/Docusate Sodium 1 Tablet) 2 tablet PO BID [facility] Last Admin: 02/04/20 10:03 Dose: 2 tablet Documented by: Sodium Chloride (0.9% Saline Lock 10 Ml Syringe) 10 - 40 ml IV UD PRN PRN Reason: SALINE FLUSH Last Admin: 02/03/20 18:50 Dose: 10 ml Documented by: Tacrolimus (Tacrolimus 0.5 Mg Capsule) 1 mg PO BID [facility] Last Admin: 02/04/20 10:02 Dose: 1 mg Documented by: Medical Necessity - Tobacco Use Smoking Status: Former smoker Tobacco Use: Non-smoker Route of nutrition/ use of supplements: [] Nutritional Intake: [] IV Site: [] Fernando Catheter: [] - Assessment/Plan Antibiotics: [] Assessment/Plan: [] Active and Suspected Problems (Last Updated 09/02/18 @ 13:55 by Katheryn Mosqueda) COVID-19 virus infection (Acute) Acute respiratory failure with hypoxia (Acute) covid with hypoxia, resp failure, renal transplant - on therapeutic lovenox, completed 10 days of dex, and completed 5 doses of remdesivir 01/22. D-dimer was 4.2. Had O2 worsening after extubation with ongoing issues with afib, continued fever, rising wbc; so on 01/27 repeated cxs and started vanc/cefepime. 2 of 2 bcx with CoNS. Sputum with some yeast. Now afebrile, feeling better, O2 improved, out of icu. On vanc for CoNS bacteremia. Cr improved today. Will stop vanc today. Will follow
[2020-02-04 16:20] LABS: Tacrolimus (FK506) 6.4 ng/mL (2.0-20.0)
[2020-02-04 16:36] LABS: Bedside Glucose 221 mg/dL (70-110)
[2020-02-04] MEDS: Furosemide 40 MG Tablet PO (17:20)
[2020-02-04 22:05] LABS: Bedside Glucose 205 mg/dL (70-110)
[2020-02-05] VITALS (16 sets, daily range): BP systolic 101–116; BP diastolic 61–78; PULSE 76–100; RESP 12–26; TEMP 36.6–36.8; O2SAT 92–98
[2020-02-05 06:40] LABS: Absolute Lymphocyte Count 0.94 X10^3/uL (0.83-4.51); Basophil# 0.04 X10^3/uL; Basophil% 0.3 % (0-1); Eosinophil# 0.59 X10^3/uL; Eosinophils% 4.4 % (0-5); Hematocrit 31.5 % (40-54); Hemoglobin 9.7 g/dL (13.0-16.5); Lymphocyte # 0.94 X10^3/ul (4.0); Mean Corp Hgb Conc 30.8 g/dL (32-36); Mean Corpuscular Hgb 27.5 pg (27.0-32.0); Mean Corpuscular Volume 89.2 fL (80-94); Mean Platelet Vol. 10.1 fl (6.2-12.0); Monocyte# 0.69 X10^3/uL; Monocyte% 5.1 % (0-10); NRBC Flagged by Analyzer 0 % (0-5); Neutrophil # 10.96 X10^3/uL (2.7-7.7); Neutrophil % 81.3 % (47-70); Platelet Count 379 K/mm3 (150-450); RBC Distribution Width CV 14.1 % (11.6-14.6); RBC Distribution Width SD 44.7 fl (35.1-43.9); Red Blood Count 3.53 M/mm3 (4.6-6.2); White Blood Count 13.5 K/mm3 (4.4-11.0)
[2020-02-05 06:56] LABS: Bedside Glucose 107 mg/dL (70-110)
[2020-02-05 07:07] LABS: Anion Gap 6 (5-15); BUN 63 mg/dL (7-18); BUN/Creat Ratio 37.3 RATIO (10-20); Calcium,Total 8.9 mg/dL (8.5-10.1); Chloride 104 mmol/L (98-107); Creatinine, Serum 1.69 mg/dL (0.70-1.30); EST Glomerular Filtration Rate 45 mL/min (>60); Est Glom Filt Rate - Afr Amer 55 mL/min (>60); Estimated Creatinine Clearance 48.34 ml/min; Glucose 87 mg/dL (74-106); Potassium 4.1 mmol/L (3.5-5.1); Sodium Level 135 mmol/L (136-145)
--- NOTE | 2020-02-05 08:04 | PN_ITS ---
Patient Problems: Active and Suspected Problems (Last Updated 09/02/18 @ 13:55 by Katheryn Mosqueda) TUCKER (acute kidney injury) (Acute) a fib with rvr (Acute) COVID-19 virus infection (Acute) Acute respiratory failure with hypoxia (Acute) Subjective: The patient was seen and examined at the bedside this morning. Events from the last 24 hours have been reviewed. The patient is currently afebrile, hemodynamically stable and maintaining appropriate oxygen saturations on 6 L/min via nasal cannula. Creatinine is stable at 1.69. The patient is currently documented to be overall net -8 L for the hospital admission. He remains on twice daily Lasix by mouth. Objective: The patient's most recent lab work, culture data and imaging studies have all been personally reviewed. Surface echocardiogram from November 2018 revealed normal LV size with an ejection fraction of 55%. Pulmonary artery systolic pres sure was estimated to be 25 to 30 mmHg. Coronavirus testing was positive on January 01. Sputum and blood cultures have shown no growth to date. - Physical Exam Vitals/I&O's: Vital Signs Temp Pulse Resp BP Pulse Ox 97.8 F 79 20 H 104/67 95 02/05/20 02:50 02/05/20 03:00 02/05/20 02:50 02/05/20 02:50 02/05/20 02:50 Oxygen Flow Rate (L/min) 6 Oxygen Delivery Method Nasal Cannula Weight: 152 lb 12.485 oz Body Mass Index (BMI) 26.0 Intake and Output for Last 24 Hours 02/03/20 02/04/20 02/05/20 23:59 23:59 23:59 Intake Total 700 / 700 530 / 530 600 / 600 Output Total 1700 / 1700 1974 / 1974 500 / 500 Balance -1000 / -1000 -1445 / -1445 100 / 100 General: Alert, Cooperative, No apparent distress HEENT: Atraumatic, PERRLA, Normocephalic Oral: No Gingival or Mucosal Lesions/ Ulcerations Neck: Supple, No Nodes, Trachea Midline Lungs: No rhonchi, No wheeze, No rales, Diminished Cardiovascular: Regular rate, Regular Rhythm Abdomen: Bowel Sounds Present, Soft, Non Tender Extremities: No clubbing, No cyanosis, No edema Skin: No breakdown Musculoskeletal: No Tenderness to Palpation of Joints or Extremities Lymphatic: No Cervical, Supraclavicular, or Inguinal Adenopathy Neurological: Neuro grossly intact Psych/Mental Status: Normal Affect, Appropriate Labs (Last 48 Hours) 02/02/20 02/03/20 02/03/20 08:04 11:05 16:00 WBC RBC Hgb Hct MCV MCH MCHC RDW Std Deviation RDW Coeff of Genaro Plt Count MPV Immature Gran % (Auto) Neut % (Auto) Lymph % (Auto) Ness % (Auto) Eos % (Auto) Baso % (Auto) Absolute Neuts (auto) Absolute Lymphs (auto) Nucleated RBC % Sodium Potassium Chloride Carbon Dioxide Anion Gap BUN Creatinine Estim Creat Clear Calc Est GFR (MDRD) Af Amer Est GFR (MDRD) Non-Af BUN/Creatinine Ratio Glucose Calcium Random Vancomycin 15.0 Tacrolimus 6.4 POC Glucose 170 H 02/03/20 02/03/20 02/04/20 17:02 20:47 06:55 WBC RBC Hgb Hct MCV MCH MCHC RDW Std Deviation RDW Coeff of Genaro Plt Count MPV Immature Gran % (Auto) Neut % (Auto) Lymph % (Auto) Ness % (Auto) Eos % (Auto) Baso % (Auto) Absolute Neuts (auto) Absolute Lymphs (auto) Nucleated RBC % Sodium Potassium Chloride Carbon Dioxide Anion Gap BUN Creatinine Estim Creat Clear Calc Est GFR (MDRD) Af Amer Est GFR (MDRD) Non-Af BUN/Creatinine Ratio Glucose Calcium Random Vancomycin Tacrolimus POC Glucose 195 H 226 H 94 02/04/20 02/04/20 02/04/20 07:00 12:06 16:26 WBC RBC Hgb Hct MCV MCH MCHC RDW Std Deviation RDW Coeff of Genaro Plt Count MPV Immature Gran % (Auto) Neut % (Auto) Lymph % (Auto) Ness % (Auto) Eos % (Auto) Baso % (Auto) Absolute Neuts (auto) Absolute Lymphs (auto) Nucleated RBC % Sodium 136 Potassium 4.4 Chloride 104 Carbon Dioxide 23.0 Anion Gap 9 BUN 58 H Creatinine 1.71 H Estim Creat Clear Calc 47.78 Est GFR (MDRD) Af Amer 54 L Est GFR (MDRD) Non-Af 44 L BUN/Creatinine Ratio 33.9 H Glucose 94 Calcium 9.1 Random Vancomycin Tacrolimus POC Glucose 253 H 221 H 02/04/20 02/05/20 02/05/20 20:26 06:15 06:15 WBC 13.5 H RBC 3.53 L Hgb 9.7 L Hct 31.5 L MCV 89.2 MCH 27.5 MCHC 30.8 L RDW Std Deviation 44.7 H RDW Coeff of Genaro 14.1 Plt Count 379 MPV 10.1 Immature Gran % (Auto) 1.900 H Neut % (Auto) 81.3 H Lymph % (Auto) 7.0 L Ness % (Auto) 5.1 Eos % (Auto) 4.4 Baso % (Auto) 0.3 Absolute Neuts (auto) 11.0 H Absolute Lymphs (auto) 0.94 Nucleated RBC % 0 Sodium 135 L Potassium 4.1 Chloride 104 Carbon Dioxide 25.0 Anion Gap 6 BUN 63 H Creatinine 1.69 H Estim Creat Clear Calc 48.34 Est GFR (MDRD) Af Amer 55 L Est GFR (MDRD) Non-Af 45 L BUN/Creatinine Ratio 37.3 H Glucose 87 Calcium 8.9 Random Vancomycin Tacrolimus POC Glucose 205 H 02/05/20 06:39 WBC RBC Hgb Hct MCV MCH MCHC RDW Std Deviation RDW Coeff of Genaro Plt Count MPV Immature Gran % (Auto) Neut % (Auto) Lymph % (Auto) Ness % (Auto) Eos % (Auto) Baso % (Auto) Absolute Neuts (auto) Absolute Lymphs (auto) Nucleated RBC % Sodium Potassium Chloride Carbon Dioxide Anion Gap BUN Creatinine Estim Creat Clear Calc Est GFR (MDRD) Af Amer Est GFR (MDRD) Non-Af BUN/Creatinine Ratio Glucose Calcium Random Vancomycin Tacrolimus POC Glucose 107 Clinical Impression(s) from Imaging Studies Chest X-Ray 01/18/20 17:00 IMPRESSION: 1. Extensive multilobar airspace disease suggesting pneumonia, including viral causes. Electronically Signed: Tyrone Borrero MD ([place]) at 17:22 EST , Service support , Chest X-Ray 01/18/20 20:40 KUB X-Ray 01/23/20 00:01 IMPRESSION: 1. Appropriate positioning of supportive devices 2. Normal bowel gas pattern Electronically Signed: Jonathan Aguilar MD at 1:57 EST Tel , Service support , Chest X-Ray 01/26/20 12:09 IMPRESSION: Extensive bilateral airspace opacities increase in the right lung when compared to prior study. at 2329 Reported and signed by: Macrina Herrmann DO Electronically Signed: Macrina Herrmann DO at 23:28 EST Tel , Service support , Chest X-Ray 01/28/20 08:50 IMPRESSION: Minimal improvement in the diffuse bilateral airspace disease. The endotracheal tube and orogastric tube have been removed. Electronically Signed: Richard Elisa, at 9:30 EST , Service support , Current Medications Acetaminophen (Acetaminophen 325 Mg Tablet) 650 mg PO Q6H PRN PRN PRN Reason: Pain Score 1-10 Last Admin: 02/04/20 12:14 Dose: 650 mg Documented by: Albuterol Sulfate (Albuterol 2.5 Mg/3 Ml Vial.Neb.) 2.5 mg INHALATION Q2H PRN PRN PRN Reason: WHEEZING Amiodarone HCl (Amiodarone 200 Mg Tablet) 200 mg PO BID [facility] Stop: 02/18/20 22:01 Amiodarone HCl (Amiodarone 200 Mg Tablet) 200 mg PO DAILY [facility] Apixaban (Apixaban 5 Mg Tablet) 5 mg PO BID [facility] Last Admin: 02/04/20 20:40 Dose: 5 mg Documented by: Calamine/Phenol (Menthol/Lanolin/Calamine/Znox 113 Gm Tube) 1 applic TOPICAL BID [facility]; Protocol Last Admin: 02/04/20 20:39 Dose: 1 applicatio Documented by: Dextrose (Dextrose 50%-Water 25 Gm/50 Ml Disp.Syrin) 0 gm IV X1 PRN; Protocol PRN Reason: Hypoglycemia Furosemide (Furosemide 40 Mg Tablet) 40 mg PO BID@1000,1800 [facility] Last Admin: 02/04/20 17:20 Dose: 40 mg Documented by: Glucagon (Glucagon 1 Mg/Ml Syringe) 1 mg IM .X1 PRN PRN Reason: Hypoglycemia Sodium Chloride () 250 mls @ 15 mls/hr IV .[id number] PRN PRN Reason: Saline Flush Last Infusion: 02/02/20 07:58 Dose: Infused Documented by: Sodium Chloride () 250 mls @ 15 mls/hr IV .[id number] PRN PRN Reason: Additional IVPB Infusion Insulin Glargine (Insulin Glargine 100 Units/Ml Pen) 7 units SC BID [facility] Last Admin: 02/04/20 20:41 Dose: 7 u Documented by: Insulin Human Lispro (Insulin Lispro 100 Unit/Ml Insuln.Pen) 0 unit SC ACHS [facility]; Protocol Last Admin: 02/05/20 06:39 Dose: Not Given Documented by: Metoprolol Tartrate (Metoprolol Tartrate 100 Mg Tablet) 100 mg PO BID [facility] Last Admin: 02/04/20 20:42 Dose: 100 mg Documented by: Ondansetron HCl (Ondansetron 4 Mg/2 Ml Vial) 4 mg IV Q8H PRN PRN PRN Reason: NAUSEA/VOMITING Pantoprazole Sodium (Pantoprazole Sodium 40 Mg Tablet) 40 mg PO BID [facility] Last Admin: 02/04/20 20:42 Dose: 40 mg Documented by: Paroxetine HCl (Paroxetine 20 Mg Tablet) 20 mg PO DAILY [facility] Last Admin: 02/04/20 10:04 Dose: 20 mg Documented by: Prednisone (Prednisone 5 Mg Tablet) 7.5 mg PO DAILY [facility] Last Admin: 02/04/20 10:01 Dose: 7.5 mg Documented by: Senna/Docusate Sodium (Senna/Docusate Sodium 1 Tablet) 2 tablet PO BID [facility] Last Admin: 02/04/20 20:42 Dose: Not Given Documented by: Sodium Chloride (0.9% Saline Lock 10 Ml Syringe) 10 - 40 ml IV UD PRN PRN Reason: SALINE FLUSH Last Admin: 02/03/20 18:50 Dose: 10 ml Documented by: Tacrolimus (Tacrolimus 0.5 Mg Capsule) 1 mg PO BID [facility] Last Admin: 02/04/20 20:43 Dose: 1 mg Documented by: Medical Necessity - Tobacco Use Smoking Status: Former smoker Tobacco Use: Non-smoker Assessment/Plan All Active Problems (Last Updated 09/02/18 @ 13:55 by Katheryn Mosqueda) TUCKER (acute kidney injury) (Acute) a fib with rvr (Acute) COVID-19 virus infection (Acute) Acute respiratory failure with hypoxia (Acute) RECOMMENDATIONS: 1. Continue rate/rhythm control strategy per cardiology recommendations. 2. Continue p.o. Lasix as tolerated by hemodynamics and renal function. 3. Monitor tacrolimus level closely given potential interaction with amiodarone. 4. Continue to wean supplemental O2 to maintain oxygen saturations at or above 90%. 5. Continue systemic anticoagulation as ordered. 6. Encourage incentive spirometer use and mobilize patient as tolerated. IMPRESSIONS: 1. Acute hypoxemic respiratory failure secondary to COVID-19 pneumonia Continue current supportive measures. The patient was able to be successfully extubated on January 26. Respiratory status appears to be slowly improving. Continue rate/rhythm control strategy per cardiology recommendations. Continue to attempt gentle diuresis as tolerated by hemodynamics and renal function. Continue Eliquis as ordered. Dietary advancement per speech therapy recommendations. 2. Acute on chronic kidney disease status post renal transplantation Improving. Defer ongoing hemodialysis need to nephrology. Defer tacrolimus management per nephrology recommendations. Continue diuresis as tolerated by hemodynamics and renal function. 3. Paroxysmal atrial fibrillation with RVR The patient's rate/rhythm has been difficult to control. Cardiology is currently following to assist with management. We will plan to continue current rate/rhythm control strategy. 4. Hypertension/hyperlipidemia/elevated troponin Complicates care, management, recovery and prognosis. Physical therapy to continue to work with the patient. Continue Lantus and sliding scale insulin coverage. This note was generated with [employer] dictation software. It may contain incorrect words, spelling, and punctuation that were not noted in checking the note before signing. Inpatient E&M: 98643 Subs Hosp L2
--- NOTE | 2020-02-05 09:17 | CASEMGMT ---
SW spoke w/physician, pt is not ready today, he may be ready over the holiday weekend however. CHRISTIANO spoke w/Danielle at [facility], she anticipates they will have a bed for pt, she will look into starting precert today and let SW know if they get it for the holiday weekend. Updates faxed. ROBINSON Main
[2020-02-05] MEDS: Menthol/Lanolin/Calamine/Znox 113 GM Tube 1 APPLIC TOPICAL ×2 (09:59→21:48)
[2020-02-05] MEDS: APIXABAN 5 MG TABLET PO ×2 (09:59→21:40)
[2020-02-05] MEDS: Amiodarone 200 MG Tablet PO ×2 (09:59→21:40)
[2020-02-05] MEDS: predniSONE 5 MG Tablet 7.5 MG PO (10:00)
[2020-02-05] MEDS: Tacrolimus 0.5 MG Capsule 1 MG PO ×2 (10:00→21:40)
[2020-02-05] MEDS: Metoprolol Tartrate 100 MG Tablet PO ×2 (10:00→21:45)
[2020-02-05] MEDS: Paroxetine 20 MG Tablet PO (10:00)
[2020-02-05] MEDS: Furosemide 40 MG Tablet PO ×2 (10:00→19:20)
[2020-02-05] MEDS: Pantoprazole Sodium 40 MG Tablet PO ×2 (10:00→21:39)
[2020-02-05 12:10] LABS: Bedside Glucose 114 mg/dL (70-110)
--- NOTE | 2020-02-05 13:32 | PCM.PN.HOSP ---
Patient Problems: Active and Suspected Problems (Last Updated 09/02/18 @ 13:55 by Katheryn Mosqueda) TUCKER (acute kidney injury) (Acute) a fib with rvr (Acute) COVID-19 virus infection (Acute) Acute respiratory failure with hypoxia (Acute) Subjective: Oxygenation has improved to 6 L nasal cannula. He is feeling a little bit better and is okay with going to a long-term facility when he is ready for discharge Vitals/I&O's: Vital Signs Temp Pulse Resp BP Pulse Ox 98.2 F 91 20 H 116/68 94 02/05/20 10:51 02/05/20 10:51 02/05/20 10:51 02/05/20 10:51 02/05/20 10:51 Oxygen Flow Rate (L/min) 7 Oxygen Delivery Method Nasal Cannula Weight: 152 lb 12.485 oz Body Mass Index (BMI) 26.0 Intake and Output for Last 24 Hours 02/03/20 02/04/20 02/05/20 23:59 23:59 23:59 Intake Total 700 / 700 530 / 530 600 / 600 Output Total 1700 / 1700 1974 / 1974 500 / 500 Balance -1000 / -1000 -1445 / -1445 100 / 100 General: Alert, Oriented x3, Cooperative, No apparent distress HEENT: Atraumatic, PERRLA, EOMI, Normocephalic Oral: Moist Mucosa Neck: Supple, No JVD Lungs: Normal air movement, No rhonchi, No wheeze, No rales, Diminished Cardiovascular: Regular rate, Regular Rhythm, Normal S1, Normal S2, Murmur Abdomen: Soft, Non Tender, Non-Distended, No Hepato-splenomegaly Extremities: No edema, Capillary Refill Less than 3 Seconds Skin: No rashes, No breakdown Neurological: Neuro grossly intact, Sensory exam intact to light touch and pain Microbiology Past 72 Hours 01/28/20 13:30 Blood Culture (Wb) - Anticubital Right Blood Culture - Final No growth in 5 days. 01/28/20 13:45 Blood Culture (Wb) - Right Wrist Blood Culture - Final No growth in 5 days. Laboratory Results 02/02/20 08:04: Tacrolimus 6.4 02/04/20 16:26: POC Glucose 221 H 02/04/20 20:26: POC Glucose 205 H 02/05/20 06:15: WBC 13.5 H, RBC 3.53 L, Hgb 9.7 L, Hct 31.5 L, MCV 89.2, MCH 27.5, MCHC 30.8 L, RDW Std Deviation 44.7 H, RDW Coeff of Genaro 14.1, Plt Count 379, MPV 10.1, Immature Gran % (Auto) 1.900 H, Neut % (Auto) 81.3 H, Lymph % (Auto) 7.0 L, Adams % (Auto) 5.1, Eos % (Auto) 4.4, Baso % (Auto) 0.3, Absolute Neuts (auto) 11.0 H, Absolute Lymphs (auto) 0.94, Nucleated RBC % 0 02/05/20 06:15: Sodium 135 L, Potassium 4.1, Chloride 104, Carbon Dioxide 25.0, Anion Gap 6, BUN 63 H, Creatinine 1.69 H, Estim Creat Clear Calc 48.34, Est GFR (MDRD) Af Amer 55 L, Est GFR (MDRD) Non-Af 45 L, BUN/Creatinine Ratio 37.3 H, Glucose 87, Calcium 8.9 02/05/20 06:39: POC Glucose 107 02/05/20 11:56: POC Glucose 114 H Current Medications Acetaminophen (Acetaminophen 325 Mg Tablet) 650 mg PO Q6H PRN PRN PRN Reason: Pain Score 1-10 Last Admin: 02/04/20 12:14 Dose: 650 mg Documented by: Albuterol Sulfate (Albuterol 2.5 Mg/3 Ml Vial.Neb.) 2.5 mg INHALATION Q2H PRN PRN PRN Reason: WHEEZING Amiodarone HCl (Amiodarone 200 Mg Tablet) 200 mg PO BID [facility] Stop: 02/18/20 22:01 Last Admin: 02/05/20 09:59 Dose: 200 mg Documented by: Amiodarone HCl (Amiodarone 200 Mg Tablet) 200 mg PO DAILY [facility] Apixaban (Apixaban 5 Mg Tablet) 5 mg PO BID [facility] Last Admin: 02/05/20 09:59 Dose: 5 mg Documented by: Calamine/Phenol (Menthol/Lanolin/Calamine/Znox 113 Gm Tube) 1 applic TOPICAL BID [facility]; Protocol Last Admin: 02/05/20 09:59 Dose: 1 applicatio Documented by: Dextrose (Dextrose 50%-Water 25 Gm/50 Ml Disp.Syrin) 0 gm IV X1 PRN; Protocol PRN Reason: Hypoglycemia Furosemide (Furosemide 40 Mg Tablet) 40 mg PO BID@1000,1800 [facility] Last Admin: 02/05/20 10:00 Dose: 40 mg Documented by: Glucagon (Glucagon 1 Mg/Ml Syringe) 1 mg IM .X1 PRN PRN Reason: Hypoglycemia Sodium Chloride () 250 mls @ 15 mls/hr IV .[id number] PRN PRN Reason: Saline Flush Last Infusion: 02/02/20 07:58 Dose: Infused Documented by: Sodium Chloride () 250 mls @ 15 mls/hr IV .[id number] PRN PRN Reason: Additional IVPB Infusion Insulin Glargine (Insulin Glargine 100 Units/Ml Pen) 7 units SC BID [facility] Last Admin: 02/05/20 10:03 Dose: 7 u Documented by: Insulin Human Lispro (Insulin Lispro 100 Unit/Ml Insuln.Pen) 0 unit SC ACHS [facility]; Protocol Last Admin: 02/05/20 11:57 Dose: Not Given Documented by: Metoprolol Tartrate (Metoprolol Tartrate 100 Mg Tablet) 100 mg PO BID [facility] Last Admin: 02/05/20 10:00 Dose: 100 mg Documented by: Ondansetron HCl (Ondansetron 4 Mg/2 Ml Vial) 4 mg IV Q8H PRN PRN PRN Reason: NAUSEA/VOMITING Pantoprazole Sodium (Pantoprazole Sodium 40 Mg Tablet) 40 mg PO BID [facility] Last Admin: 02/05/20 10:00 Dose: 40 mg Documented by: Paroxetine HCl (Paroxetine 20 Mg Tablet) 20 mg PO DAILY [facility] Last Admin: 02/05/20 10:00 Dose: 20 mg Documented by: Prednisone (Prednisone 5 Mg Tablet) 7.5 mg PO DAILY [facility] Last Admin: 02/05/20 10:00 Dose: 7.5 mg Documented by: Senna/Docusate Sodium (Senna/Docusate Sodium 1 Tablet) 2 tablet PO BID [facility] Last Admin: 02/05/20 10:04 Dose: Not Given Documented by: Sodium Chloride (0.9% Saline Lock 10 Ml Syringe) 10 - 40 ml IV UD PRN PRN Reason: SALINE FLUSH Last Admin: 02/03/20 18:50 Dose: 10 ml Documented by: Tacrolimus (Tacrolimus 0.5 Mg Capsule) 1 mg PO BID [facility] Last Admin: 02/05/20 10:00 Dose: 1 mg Documented by: STROKE Vital Signs/Narrative: Vital Signs Temp Pulse Resp BP Pulse Ox 02/05/20 10:51 98.2 F 91 20 H 116/68 94 02/05/20 10:07 92 02/05/20 10:00 99 02/05/20 09:53 100 92 02/05/20 09:44 98.3 F 95 20 H 101/61 92 Medical Necessity - Tobacco Use Smoking Status: Former smoker Tobacco Use: Non-smoker Assessment/Plan All Active Problems (Last Updated 09/02/18 @ 13:55 by Katheryn Mosqueda) TUCKER (acute kidney injury) (Acute) a fib with rvr (Acute) COVID-19 virus infection (Acute) Acute respiratory failure with hypoxia (Acute) 1. Acute hypoxic respiratory failure secondary to acute bilateral COVID-19 pneumonia/MRSE bacteremia/abnormal cardiac enzymes -He completed remdesivir as well as 10 days of Decadron his back on his baseline prednisone -Appreciate ID assistance, he is completed all of his antibiotics -He did have a sputum culture that showed rare gram-positive cocci in clusters -His elevated troponin was likely secondary to demand ischemia. He is on amiodarone to continue managing his new onset A. fib -Continue with Lasix to manage a fluid overload 2. TUCKER on CKD 3/history of renal transplant -Appreciate nephrology's assistance with dialysis as well as management antirejection medications -We will continue to monitor tacrolimus levels -Creatinine stable 3. New onset A. fib/HTN/HLD/elevated troponin -Troponin secondary to demand ischemia as well as new onset A. fib -Continue with amiodarone -Blood pressure does appear stable -Continue with Eliquis and metoprolol 4. Anxiety/depression -Stable -Continue with Paxil DVT: Eliquis Inpatient E&M: 62102 Subs Hosp L2
--- NOTE | 2020-02-05 13:32 | CASEMGMT ---
Addendum entered by Ary Murray 02/05/20 14:17: Speech therapy let pt know for SW that pt can go to [facility] but not until Sunday. Pt inquired why, INTERNAL SALES ENGINEER put the phone near him so SW could call him. SW called pt, explained to him that his breathing needs to be where he doesn't need more than 10LPM continuous when he gets up with therapy. Also, [facility] can't take pt until Sunday due to staffing. SW explained we will see if he is medically ready on Sunday, we should be able to get him moved then. Pt states understanding. ROBINSON Main Original Note: SW spoke w/Danielle at [facility], they can take pt but not until Sunday. Pt is not yet ready today, SW explained if he were ready would be later in the weekend anyway. SW will follow up w/Danielle on Sunday. SW attempted to call pt, he did not answer the phone. SW called pt's parents, spoke w/his mother. SW let her know pt will be able to go to [facility] but not until Sunday. Pt's mother states understanding. Plan: [facility] Sunday if pt is medically ready, SW also to check on precert with [facility]. ROBINSON Main
[2020-02-05] MEDS: Insulin Lispro 100 UNIT/ML INSULN.PEN SC (16:50)
[2020-02-05 17:50] LABS: Bedside Glucose 164 mg/dL (70-110)
[2020-02-05] MEDS: 0.9% Saline Lock 10 ML Syringe IV (21:41)
[2020-02-05 22:26] LABS: Bedside Glucose 121 mg/dL (70-110)
[2020-02-06] VITALS (14 sets, daily range): BP systolic 108–127; BP diastolic 62–79; PULSE 74–94; RESP 12–26; TEMP 36.6–36.9; O2SAT 92–97
[2020-02-06 05:55] LABS: Anion Gap 9 (5-15); BUN 63 mg/dL (7-18); BUN/Creat Ratio 34.6 RATIO (10-20); Calcium,Total 9.4 mg/dL (8.5-10.1); Chloride 100 mmol/L (98-107); Creatinine, Serum 1.82 mg/dL (0.70-1.30); EST Glomerular Filtration Rate 41 mL/min (>60); Est Glom Filt Rate - Afr Amer 50 mL/min (>60); Estimated Creatinine Clearance 44.89 ml/min; Glucose 83 mg/dL (74-106); Potassium 3.9 mmol/L (3.5-5.1); Sodium Level 132 mmol/L (136-145)
--- NOTE | 2020-02-06 06:50 | PCM.PN.HOSP ---
Patient Problems: Active and Suspected Problems (Last Updated 09/02/18 @ 13:55 by Katheryn Mosqueda) TUCKER (acute kidney injury) (Acute) a fib with rvr (Acute) COVID-19 virus infection (Acute) Acute respiratory failure with hypoxia (Acute) Subjective: Patient with no acute events overnight per self and per nursing report but continues to breathe very shallow with ongoing need for 6 to 8 L nasal cannula, continues to be reticent to move to chair and complete simple activity in the room secondary to discomfort. Discussed strongly patient need for more activity, out of bed to chair and aggressive incentive spirometry with advised 10 times per hour every hour from 7 AM to 7 PM. Patient still no shortness of breath, worse with exertion but even with rest and ongoing occasional coughing. Patient denies fevers, chills, nausea, emesis, abdominal pain, chest pain. Objective: Physical Examination: General: awake, alert, oriented x 3 and cooperative, seated upright in the medical surgical bed, fatigued appearance, ongoing shallow breathing. Skin: normal color, turgor, no icterus, cyanosis. HEENT: AT/NC, EOMI, PERRLA, mildly dry MM. Lungs: Diminished breath sounds, greater bases, increased respiratory rate with shallow breaths, encouraged deep inspiratory effort, no rales, ronchi or wheezing. Heart: Regular rate and rhythm; no gallop, rub audible. Abdomen: soft, NTTP, ND, normal BS. Extremities: no cyanosis, clubbing, or edema. Neurological: patient awake, alert, oriented as noted; cognitive function intact; pupils equally reactive to light and accomodation; cranial nerves II-XII grossly normal, moving all 4 extremities, no focal deficits, strength severely globally decreased given acute presentation. Psychiatric: affect appears flat, fatigued, no acute evidence of depressive or anxiety feelings. Vitals/I&O's: Vital Signs Temp Pulse Resp BP Pulse Ox 98.5 F 92 20 H 127/74 H 96 02/06/20 06:38 02/06/20 06:38 02/06/20 06:38 02/06/20 06:38 02/06/20 06:38 Oxygen Flow Rate (L/min) 8 Oxygen Delivery Method Nasal Cannula Weight: 152 lb 12.485 oz Body Mass Index (BMI) 26.0 Intake and Output for Last 24 Hours 02/04/20 02/05/20 02/06/20 23:59 23:59 23:59 Intake Total 530 / 530 600 / 600 Output Total 1974 1450 / 1450 Balance -1445 / -1445 -850 / -850 Laboratory Results 02/05/20 06:15: Sodium 135 L, Potassium 4.1, Chloride 104, Carbon Dioxide 25.0, Anion Gap 6, BUN 63 H, Creatinine 1.69 H, Estim Creat Clear Calc 48.34, Est GFR (MDRD) Af Amer 55 L, Est GFR (MDRD) Non-Af 45 L, BUN/Creatinine Ratio 37.3 H, Glucose 87, Calcium 8.9 02/05/20 06:39: POC Glucose 107 02/05/20 11:56: POC Glucose 114 H 02/05/20 16:49: POC Glucose 164 H 02/05/20 21:36: POC Glucose 121 H 02/06/20 04:34: Sodium 132 L, Potassium 3.9, Chloride 100, Carbon Dioxide 23.0, Anion Gap 9, BUN 63 H, Creatinine 1.82 H, Estim Creat Clear Calc 44.89, Est GFR (MDRD) Af Amer 50 L, Est GFR (MDRD) Non-Af 41 L, BUN/Creatinine Ratio 34.6 H, Glucose 83, Calcium 9.4 Current Medications Acetaminophen (Acetaminophen 325 Mg Tablet) 650 mg PO Q6H PRN PRN PRN Reason: Pain Score 1-10 Last Admin: 02/04/20 12:14 Dose: 650 mg Documented by: Albuterol Sulfate (Albuterol 2.5 Mg/3 Ml Vial.Neb.) 2.5 mg INHALATION Q2H PRN PRN PRN Reason: WHEEZING Amiodarone HCl (Amiodarone 200 Mg Tablet) 200 mg PO BID [facility] Stop: 02/18/20 22:01 Last Admin: 02/05/20 21:40 Dose: 200 mg Documented by: Amiodarone HCl (Amiodarone 200 Mg Tablet) 200 mg PO DAILY [facility] Apixaban (Apixaban 5 Mg Tablet) 5 mg PO BID [facility] Last Admin: 02/05/20 21:40 Dose: 5 mg Documented by: Calamine/Phenol (Menthol/Lanolin/Calamine/Znox 113 Gm Tube) 1 applic TOPICAL BID [facility]; Protocol Last Admin: 02/05/20 21:48 Dose: 1 applicatio Documented by: Dextrose (Dextrose 50%-Water 25 Gm/50 Ml Disp.Syrin) 0 gm IV X1 PRN; Protocol PRN Reason: Hypoglycemia Furosemide (Furosemide 40 Mg Tablet) 40 mg PO BID@1000,1800 [facility] Last Admin: 02/05/20 19:20 Dose: 40 mg Documented by: Glucagon (Glucagon 1 Mg/Ml Syringe) 1 mg IM .X1 PRN PRN Reason: Hypoglycemia Sodium Chloride () 250 mls @ 15 mls/hr IV .[id number] PRN PRN Reason: Saline Flush Last Infusion: 02/02/20 07:58 Dose: Infused Documented by: Sodium Chloride () 250 mls @ 15 mls/hr IV .[id number] PRN PRN Reason: Additional IVPB Infusion Insulin Glargine (Insulin Glargine 100 Units/Ml Pen) 7 units SC BID [facility] Last Admin: 02/05/20 21:47 Dose: Not Given Documented by: Insulin Human Lispro (Insulin Lispro 100 Unit/Ml Insuln.Pen) 0 unit SC ACHS [facility]; Protocol Last Admin: 02/06/20 06:43 Dose: Not Given Documented by: Metoprolol Tartrate (Metoprolol Tartrate 100 Mg Tablet) 100 mg PO BID [facility] Last Admin: 02/05/20 21:45 Dose: 100 mg Documented by: Ondansetron HCl (Ondansetron 4 Mg/2 Ml Vial) 4 mg IV Q8H PRN PRN PRN Reason: NAUSEA/VOMITING Pantoprazole Sodium (Pantoprazole Sodium 40 Mg Tablet) 40 mg PO BID [facility] Last Admin: 02/05/20 21:39 Dose: 40 mg Documented by: Paroxetine HCl (Paroxetine 20 Mg Tablet) 20 mg PO DAILY [facility] Last Admin: 02/05/20 10:00 Dose: 20 mg Documented by: Prednisone (Prednisone 5 Mg Tablet) 7.5 mg PO DAILY [facility] Last Admin: 02/05/20 10:00 Dose: 7.5 mg Documented by: Senna/Docusate Sodium (Senna/Docusate Sodium 1 Tablet) 2 tablet PO BID [facility] Last Admin: 02/05/20 21:53 Dose: Not Given Documented by: Sodium Chloride (0.9% Saline Lock 10 Ml Syringe) 10 - 40 ml IV UD PRN PRN Reason: SALINE FLUSH Last Admin: 02/05/20 21:41 Dose: 10 ml Documented by: Tacrolimus (Tacrolimus 0.5 Mg Capsule) 1 mg PO BID [facility] Last Admin: 02/05/20 21:40 Dose: 1 mg Documented by: STROKE Vital Signs/Narrative: Vital Signs Temp Pulse Resp BP Pulse Ox 02/06/20 06:38 98.5 F 92 20 H 127/74 H 96 02/06/20 05:59 85 02/06/20 03:00 98.2 F 81 24 H 126/79 H 95 Medical Necessity - Tobacco Use Smoking Status: Former smoker Tobacco Use: Non-smoker Assessment/Plan All Active Problems (Last Updated 09/02/18 @ 13:55 by Katheryn Mosqueda) TUCKER (acute kidney injury) (Acute) a fib with rvr (Acute) COVID-19 virus infection (Acute) Acute respiratory failure with hypoxia (Acute) The patient is a 54 y/o M w/ PMHx: HTN, HLD, CKD stage III s/p renal transplant who presented to the [facility] ED on 01/18/20 secondary to recent diagnosis of Covid infection on 01/02/2020 with progressively worsening pulse oximeter, 45% per squad upon their evaluation with immediate placement on BiPAP and admission to the ICU. 1. Acute hypoxic respiratory failure secondary to acute COVID-19 Pneumonia and MRSE Bacteremia: Patient admitted to the ICU upon initial ED presentation, BiPAP attempted however eventually needed intubated with eventual extubation on 01/27/2020, blood cultures with MRSE bacteremia, repeat blood cultures on 01/28/2020 with no growth, completed antibiotic therapy, respiratory status has been slowly improving, completed Decadron with transition back to oral home baseline prednisone regimen, completed remdesivir per infectious disease discretion, patient had been on IV diuretics initially transition to oral diuretics with Lasix 40 mg p.o. twice daily however given increasing renal function will attempt de-escalation to Lasix 40 mg once daily on 02/06/2020; however, if preference to continue twice daily dosing per pulmonary will defer to the discretion with weight down now to 152 pounds on 02/06/2020, continue to wean oxygen supplementation as able but has been vacillating between 6 and 8 L nasal cannula, once clinically appropriate will require alf facility placement, infectious disease and pulmonary medicine following as noted, PT/OT/case management consultation for discharge planning. Continue BIPAP as needed and q HS. Planned SNF once pre-certification obtained, possibly this coming week Sunday. 2. Acute kidney injury on CKD stage III s/p Renal Transplant: Secondary to #1 with ATN. Recent admission with creatinine on 01/18/2020 2.79 however increased on 01/21/2020 up to 4.71, prior baseline creatinine noted to be 1.6-1.8. Given increasing creatinine and significant negative fluid status following Lasix diuresis will transition to Lasix 40 mg p.o. once daily instead of twice daily, continue to trend renal function. Patient's renal transplant surgeon was contacted upon initial presentation to the ED and requested that patient CellCept be held, continued on tacrolimus regimen as well as daily prednisone regimen. Nephrology following, encouraged avoidance of nephrotoxin regimen with vancomycin dosing per pharmacy. 3. New onset PAF with episode RVR with indeterminate cardiac enzyme: Patient with complicated presentation, initially required Cardizem drip, currently maintained on amiodarone as well as Eliquis regimen, cardiology consulted and following. 01/18/2020 troponin 0 0.162, repeat 01/26/2020 0.098, likely demand given acute presentation #1. 11/2018 echocardiogram at that time with normal LV size, EF 55%, PASP 25 to 30 mmHg. Continued monitoring of tacrolimus level given possible interaction with amiodarone. 4. Diabetes mellitus type II: Admission hemoglobin A1c 6.6, new onset, initially had been on scheduled Lantus with increased steroid usage transiently, currently has been held several times secondary to low blood sugars, will discontinue and maintain on ADA diet with Accu-Cheks with insulin sliding scale only. 5. Anxiety and depression: We will continue patient home Paxil regimen. 6. GERD: We will maintain PPI. 7. DVT prophylaxis: SCDs, Lovenox. 8. CODE STATUS: Full. Family (parents) updated on patient status and care plan 02/06/20. Inpatient E&M: [id number] [facility] Hosp L3
[2020-02-06 08:21] LABS: Bedside Glucose 84 mg/dL (70-110)
[2020-02-06] MEDS: Menthol/Lanolin/Calamine/Znox 113 GM Tube 1 APPLIC TOPICAL ×2 (08:30→21:52)
[2020-02-06] MEDS: Tacrolimus 0.5 MG Capsule 1 MG PO ×2 (08:31→21:51)
[2020-02-06] MEDS: predniSONE 5 MG Tablet 7.5 MG PO (08:31)
[2020-02-06] MEDS: Metoprolol Tartrate 100 MG Tablet PO ×2 (08:31→21:52)
[2020-02-06] MEDS: Furosemide 40 MG Tablet PO (08:31)
[2020-02-06] MEDS: Pantoprazole Sodium 40 MG Tablet PO ×2 (08:31→21:52)
[2020-02-06] MEDS: Amiodarone 200 MG Tablet PO ×2 (08:32→21:52)
[2020-02-06] MEDS: Paroxetine 20 MG Tablet PO (08:32)
[2020-02-06] MEDS: APIXABAN 5 MG TABLET PO ×2 (08:32→21:52)
[2020-02-06 10:41] LABS: Hemoglobin A1c 6.6 % (3.8-5.6)
[2020-02-06] MEDS: Insulin Lispro 100 UNIT/ML INSULN.PEN SC (16:43)
[2020-02-06 17:26] LABS: Bedside Glucose 199 mg/dL (70-110)
[2020-02-07] VITALS (15 sets, daily range): BP systolic 109–123; BP diastolic 65–77; PULSE 76–95; RESP 12–24; TEMP 36.1–36.9; O2SAT 92–96
[2020-02-07 00:55] LABS: Bedside Glucose 137 mg/dL (70-110)
--- NOTE | 2020-02-07 05:56 | PCS.PANDOC ---
PANDEMIC DOCUMENTATION INITIATED: Date: 02/07/2020 Time: 0557
--- NOTE | 2020-02-07 06:23 | PN_ITS ---
Patient Problems: Active and Suspected Problems (Last Updated 09/02/18 @ 13:55 by Katheryn Mosqueda) TUCKER (acute kidney injury) (Acute) a fib with rvr (Acute) COVID-19 virus infection (Acute) Acute respiratory failure with hypoxia (Acute) Subjective: The patient was seen and examined at the bedside this morning. Events from the last 24 hours have been reviewed. The patient is currently afebrile and hemodynamically stable. The patient continues to tolerate BiPAP overnight. His oxygen requirement was weaned down to 8 L/min via nasal cannula yesterday. Objective: The patient's most recent lab work, culture data and imaging studies have all been personally reviewed. Surface echocardiogram from November 2018 revealed normal LV size with an ejection fraction of 55%. Pulmonary artery systolic pressure was estimated to be 25 to 30 mmHg. Coronavirus testing was positive on January 01. Sputum and blood cultures have shown no growth to date. - Physical Exam Vitals/I&O's: Vital Signs Temp Pulse Resp BP Pulse Ox 97.9 F 83 20 H 121/77 H 95 02/07/20 04:05 02/07/20 04:05 02/07/20 04:05 02/07/20 04:05 02/07/20 04:05 Oxygen Flow Rate (L/min) 8 Oxygen Delivery Method Bi-pap Weight: 154 lb 1.65 oz Body Mass Index (BMI) 26.0 Intake and Output for Last 24 Hours 02/05/20 02/06/20 02/07/20 23:59 23:59 23:59 Intake Total 600 / 600 800 / 800 Output Total 1450 / 1450 2325 / 2325 300 / 300 Balance -850 / -850 -1525 / -1525 -300 / -300 General: Alert, Cooperative, No apparent distress HEENT: Atraumatic, Normocephalic Oral: No Gingival or Mucosal Lesions/ Ulcerations Neck: Supple, No Nodes, Trachea Midline Lungs: No rhonchi, No wheeze, No rales, Diminished Cardiovascular: Regular rate, Regular Rhythm Abdomen: Bowel Sounds Present, Soft, Non Tender Extremities: No clubbing, No cyanosis, No edema Skin: No breakdown Musculoskeletal: No Tenderness to Palpation of Joints or Extremities Lymphatic: No Cervical, Supraclavicular, or Inguinal Adenopathy Neurological: Neuro grossly intact Psych/Mental Status: Flat Affect Labs (Last 48 Hours) 02/05/20 02/05/20 02/05/20 06:15 06:15 06:15 WBC 13.5 H RBC 3.53 L Hgb 9.7 L Hct 31.5 L MCV 89.2 MCH 27.5 MCHC 30.8 L RDW Std Deviation 44.7 H RDW Coeff of Genaro 14.1 Plt Count 379 MPV 10.1 Immature Gran % (Auto) 1.900 H Neut % (Auto) 81.3 H Lymph % (Auto) 7.0 L Davison % (Auto) 5.1 Eos % (Auto) 4.4 Baso % (Auto) 0.3 Absolute Neuts (auto) 11.0 H Absolute Lymphs (auto) 0.94 Nucleated RBC % 0 Sodium 135 L Potassium 4.1 Chloride 104 Carbon Dioxide 25.0 Anion Gap 6 BUN 63 H Creatinine 1.69 H Estim Creat Clear Calc 48.34 Est GFR (MDRD) Af Amer 55 L Est GFR (MDRD) Non-Af 45 L BUN/Creatinine Ratio 37.3 H Glucose 87 Hemoglobin A1c 6.6 H Calcium 8.9 POC Glucose 02/05/20 02/05/20 02/05/20 06:39 11:56 16:49 WBC RBC Hgb Hct MCV MCH MCHC RDW Std Deviation RDW Coeff of Genaro Plt Count MPV Immature Gran % (Auto) Neut % (Auto) Lymph % (Auto) Davison % (Auto) Eos % (Auto) Baso % (Auto) Absolute Neuts (auto) Absolute Lymphs (auto) Nucleated RBC % Sodium Potassium Chloride Carbon Dioxide Anion Gap BUN Creatinine Estim Creat Clear Calc Est GFR (MDRD) Af Amer Est GFR (MDRD) Non-Af BUN/Creatinine Ratio Glucose Hemoglobin A1c Calcium POC Glucose 107 114 H 164 H 02/05/20 02/06/20 02/06/20 21:36 04:34 06:42 WBC RBC Hgb Hct MCV MCH MCHC RDW Std Deviation RDW Coeff of Genaro Plt Count MPV Immature Gran % (Auto) Neut % (Auto) Lymph % (Auto) Davison % (Auto) Eos % (Auto) Baso % (Auto) Absolute Neuts (auto) Absolute Lymphs (auto) Nucleated RBC % Sodium 132 L Potassium 3.9 Chloride 100 Carbon Dioxide 23.0 Anion Gap 9 BUN 63 H Creatinine 1.82 H Estim Creat Clear Calc 44.89 Est GFR (MDRD) Af Amer 50 L Est GFR (MDRD) Non-Af 41 L BUN/Creatinine Ratio 34.6 H Glucose 83 Hemoglobin A1c Calcium 9.4 POC Glucose 121 H 84 02/06/20 02/06/20 16:41 21:49 WBC RBC Hgb Hct MCV MCH MCHC RDW Std Deviation RDW Coeff of Genaro Plt Count MPV Immature Gran % (Auto) Neut % (Auto) Lymph % (Auto) Davison % (Auto) Eos % (Auto) Baso % (Auto) Absolute Neuts (auto) Absolute Lymphs (auto) Nucleated RBC % Sodium Potassium Chloride Carbon Dioxide Anion Gap BUN Creatinine Estim Creat Clear Calc Est GFR (MDRD) Af Amer Est GFR (MDRD) Non-Af BUN/Creatinine Ratio Glucose Hemoglobin A1c Calcium POC Glucose 199 H 137 H Clinical Impression(s) from Imaging Studies Chest X-Ray 01/18/20 17:00 IMPRESSION: 1. Extensive multilobar airspace disease suggesting pneumonia, including viral causes. Electronically Signed: Tyrone Borrero MD ([place]) at 17:22 EST , Service support , Chest X-Ray 01/18/20 20:40 KUB X-Ray 01/23/20 00:01 IMPRESSION: 1. Appropriate positioning of supportive devices 2. Normal bowel gas pattern Electronically Signed: Jonathan Aguilar MD at 1:57 EST Tel , Service support , Chest X-Ray 01/26/20 12:09 IMPRESSION: Extensive bilateral airspace opacities increase in the right lung when compared to prior study. at 1518 Reported and signed by: Macrina Herrmann DO Electronically Signed: Macrina Herrmann DO at 23:28 EST Tel , Service support , Chest X-Ray 01/28/20 08:50 IMPRESSION: Minimal improvement in the diffuse bilateral airspace disease. The endotracheal tube and orogastric tube have been removed. Electronically Signed: Richard Pérez, at 9:30 EST , Service support , Current Medications Acetaminophen (Acetaminophen 325 Mg Tablet) 650 mg PO Q6H PRN PRN PRN Reason: Pain Score 1-10 Last Admin: 02/04/20 12:14 Dose: 650 mg Documented by: Albuterol Sulfate (Albuterol 2.5 Mg/3 Ml Vial.Neb.) 2.5 mg INHALATION Q2H PRN PRN PRN Reason: WHEEZING Amiodarone HCl (Amiodarone 200 Mg Tablet) 200 mg PO BID [facility] Stop: 02/18/20 22:01 Last Admin: 02/06/20 21:52 Dose: 200 mg Documented by: Amiodarone HCl (Amiodarone 200 Mg Tablet) 200 mg PO DAILY [facility] Apixaban (Apixaban 5 Mg Tablet) 5 mg PO BID [facility] Last Admin: 02/06/20 21:52 Dose: 5 mg Documented by: Calamine/Phenol (Menthol/Lanolin/Calamine/Znox 113 Gm Tube) 1 applic TOPICAL BID [facility]; Protocol Last Admin: 02/06/20 21:52 Dose: 1 applicatio Documented by: Dextrose (Dextrose 50%-Water 25 Gm/50 Ml Disp.Syrin) 0 gm IV X1 PRN; Protocol PRN Reason: Hypoglycemia Furosemide (Furosemide 40 Mg Tablet) 40 mg PO DAILY [facility] Glucagon (Glucagon 1 Mg/Ml Syringe) 1 mg IM .X1 PRN PRN Reason: Hypoglycemia Sodium Chloride () 250 mls @ 15 mls/hr IV .[id number] PRN PRN Reason: Saline Flush Last Infusion: 02/02/20 07:58 Dose: Infused Documented by: Sodium Chloride () 250 mls @ 15 mls/hr IV .[id number] PRN PRN Reason: Additional IVPB Infusion Insulin Human Lispro (Insulin Lispro 100 Unit/Ml Insuln.Pen) 0 unit SC ACHS [facility]; Protocol Last Admin: 02/06/20 21:52 Dose: Not Given Documented by: Metoprolol Tartrate (Metoprolol Tartrate 100 Mg Tablet) 100 mg PO BID [facility] Last Admin: 02/06/20 21:52 Dose: 100 mg Documented by: Ondansetron HCl (Ondansetron 4 Mg/2 Ml Vial) 4 mg IV Q8H PRN PRN PRN Reason: NAUSEA/VOMITING Pantoprazole Sodium (Pantoprazole Sodium 40 Mg Tablet) 40 mg PO BID [facility] Last Admin: 02/06/20 21:52 Dose: 40 mg Documented by: Paroxetine HCl (Paroxetine 20 Mg Tablet) 20 mg PO DAILY [facility] Last Admin: 02/06/20 08:32 Dose: 20 mg Documented by: Prednisone (Prednisone 5 Mg Tablet) 7.5 mg PO DAILY [facility] Last Admin: 02/06/20 08:31 Dose: 7.5 mg Documented by: Senna/Docusate Sodium (Senna/Docusate Sodium 1 Tablet) 2 tablet PO BID [facility] Last Admin: 02/06/20 21:53 Dose: Not Given Documented by: Sodium Chloride (0.9% Saline Lock 10 Ml Syringe) 10 - 40 ml IV UD PRN PRN Reason: SALINE FLUSH Last Admin: 02/05/20 21:41 Dose: 10 ml Documented by: Tacrolimus (Tacrolimus 0.5 Mg Capsule) 1 mg PO BID [facility] Last Admin: 02/06/20 21:51 Dose: 1 mg Documented by: Medical Necessity - Tobacco Use Smoking Status: Former smoker Tobacco Use: Non-smoker Assessment/Plan All Active Problems (Last Updated 09/02/18 @ 13:55 by Katheryn Mosqueda) TUCKER (acute kidney injury) (Acute) a fib with rvr (Acute) COVID-19 virus infection (Acute) Acute respiratory failure with hypoxia (Acute) RECOMMENDATIONS: 1. Continue rate/rhythm control strategy per cardiology recommendations. 2. Continue p.o. Lasix as tolerated by hemodynamics and renal function. 3. Monitor tacrolimus level closely given potential interaction with amiodarone. 4. Continue to wean supplemental O2 to maintain oxygen saturations at or above 90%. 5. Continue systemic anticoagulation as ordered. 6. Encourage incentive spirometer use and mobilize patient as tolerated. 7. Given the patient's lack of further ICU needs, will sign off. Please call with any additional questions. IMPRESSIONS: 1. Acute hypoxemic respiratory failure secondary to COVID-19 pneumonia Continue current supportive measures. The patient was able to be successfully extubated on January 26. Respiratory status appears to be slowly improving. Continue rate/rhythm control strategy per cardiology recommendations. Continue to attempt gentle diuresis as tolerated by hemodynamics and renal function. Continue Eliquis as ordered. Dietary advancement per speech therapy recommendations. 2. Acute on chronic kidney disease status post renal transplantation Improving. Defer ongoing hemodialysis need to nephrology. Defer tacrolimus management per nephrology recommendations. Continue diuresis as tolerated by hemodynamics and renal function. 3. Paroxysmal atrial fibrillation with RVR The patient's rate/rhythm has been difficult to control. Cardiology is currently following to assist with management. We will plan to continue current rate/rhythm control strategy. 4. Hypertension/hyperlipidemia/elevated troponin Complicates care, management, recovery and prognosis. Physical therapy to continue to work with the patient. Continue Lantus and sliding scale insulin coverage. This note was generated with [employer] dictation software. It may contain incorrect words, spelling, and punctuation that were not noted in checking the note before signing. Inpatient E&M: 76056 Subs Hosp L2
--- NOTE | 2020-02-07 06:55 | PCM.PN.HOSP ---
Patient Problems: Active and Suspected Problems (Last Updated 09/02/18 @ 13:55 by Katheryn Mosqueda) TUCKER (acute kidney injury) (Acute) a fib with rvr (Acute) COVID-19 virus infection (Acute) Acute respiratory failure with hypoxia (Acute) Subjective: Patient overnight with continued high flow oxygen 8 L need with nightly BiPAP with ongoing dyspnea, worse with any activity. Patient has remained afebrile. Patient still very reticent to get up and move when encouraged per staff and for therapy. Patient denies fevers, chills, nausea, emesis, abdominal pain, chest pain. Objective: Physical Examination: General: awake, alert, oriented x 3 and cooperative, seated upright in the medical surgical bed, fatigued appearance, notes ongoing dyspnea complaints. Skin: normal color, turgor, no icterus, cyanosis. HEENT: AT/NC, EOMI, PERRLA, mildly dry MM. Lungs: Continued diminished breath sounds, greater bases, increased respiratory rate with shallow breaths, poor effort, no rales, ronchi or wheezing. Heart: Regular rate and rhythm; no gallop, rub audible. Abdomen: soft, NTTP, ND, normal BS. Extremities: no cyanosis, clubbing, or edema. Neurological: patient awake, alert, oriented as noted; cognitive function intact; pupils equally reactive to light and accomodation; cranial nerves II-XII grossly normal, moving all 4 extremities, no focal deficits, strength severely globally decreased given acute presentation. Psychiatric: affect appears flat, fatigued, no acute evidence of depressive or anxiety feelings. Vitals/I&O's: Vital Signs Temp Pulse Resp BP Pulse Ox 97.9 F 83 20 H 121/77 H 95 02/07/20 04:05 02/07/20 04:05 02/07/20 04:05 02/07/20 04:05 02/07/20 04:05 Oxygen Flow Rate (L/min) 8 Oxygen Delivery Method Bi-pap Weight: 154 lb 1.65 oz Body Mass Index (BMI) 26.0 Intake and Output for Last 24 Hours 02/05/20 02/06/20 02/07/20 23:59 23:59 23:59 Intake Total 600 / 600 800 / 800 Output Total 1450 / 1450 2325 / 2325 300 / 300 Balance -850 / -850 -1525 / -1525 -300 / -300 Laboratory Results 02/05/20 06:15: Hemoglobin A1c 6.6 H 02/06/20 06:42: POC Glucose 84 02/06/20 16:41: POC Glucose 199 H 02/06/20 21:49: POC Glucose 137 H Current Medications Acetaminophen (Acetaminophen 325 Mg Tablet) 650 mg PO Q6H PRN PRN PRN Reason: Pain Score 1-10 Last Admin: 02/04/20 12:14 Dose: 650 mg Documented by: Albuterol Sulfate (Albuterol 2.5 Mg/3 Ml Vial.Neb.) 2.5 mg INHALATION Q2H PRN PRN PRN Reason: WHEEZING Amiodarone HCl (Amiodarone 200 Mg Tablet) 200 mg PO BID [facility] Stop: 02/18/20 22:01 Last Admin: 02/06/20 21:52 Dose: 200 mg Documented by: Amiodarone HCl (Amiodarone 200 Mg Tablet) 200 mg PO DAILY [facility]ARA Apixaban (Apixaban 5 Mg Tablet) 5 mg PO BID [facility] Last Admin: 02/06/20 21:52 Dose: 5 mg Documented by: Calamine/Phenol (Menthol/Lanolin/Calamine/Znox 113 Gm Tube) 1 applic TOPICAL BID [facility]; Protocol Last Admin: 02/06/20 21:52 Dose: 1 applicatio Documented by: Dextrose (Dextrose 50%-Water 25 Gm/50 Ml Disp.Syrin) 0 gm IV X1 PRN; Protocol PRN Reason: Hypoglycemia Furosemide (Furosemide 40 Mg Tablet) 40 mg PO DAILY KEARA Glucagon (Glucagon 1 Mg/Ml Syringe) 1 mg IM .X1 PRN PRN Reason: Hypoglycemia Sodium Chloride () 250 mls @ 15 mls/hr IV .[id number] PRN PRN Reason: Saline Flush Last Infusion: 02/02/20 07:58 Dose: Infused Documented by: Sodium Chloride () 250 mls @ 15 mls/hr IV .[id number] PRN PRN Reason: Additional IVPB Infusion Insulin Human Lispro (Insulin Lispro 100 Unit/Ml Insuln.Pen) 0 unit SC ACHS [facility]; Protocol Last Admin: 02/06/20 21:52 Dose: Not Given Documented by: Metoprolol Tartrate (Metoprolol Tartrate 100 Mg Tablet) 100 mg PO BID [facility] Last Admin: 02/06/20 21:52 Dose: 100 mg Documented by: Ondansetron HCl (Ondansetron 4 Mg/2 Ml Vial) 4 mg IV Q8H PRN PRN PRN Reason: NAUSEA/VOMITING Pantoprazole Sodium (Pantoprazole Sodium 40 Mg Tablet) 40 mg PO BID [facility] Last Admin: 02/06/20 21:52 Dose: 40 mg Documented by: Paroxetine HCl (Paroxetine 20 Mg Tablet) 20 mg PO DAILY [facility] Last Admin: 02/06/20 08:32 Dose: 20 mg Documented by: Prednisone (Prednisone 5 Mg Tablet) 7.5 mg PO DAILY [facility] Last Admin: 02/06/20 08:31 Dose: 7.5 mg Documented by: Senna/Docusate Sodium (Senna/Docusate Sodium 1 Tablet) 2 tablet PO BID [facility] Last Admin: 02/06/20 21:53 Dose: Not Given Documented by: Sodium Chloride (0.9% Saline Lock 10 Ml Syringe) 10 - 40 ml IV UD PRN PRN Reason: SALINE FLUSH Last Admin: 02/05/20 21:41 Dose: 10 ml Documented by: Tacrolimus (Tacrolimus 0.5 Mg Capsule) 1 mg PO BID [facility] Last Admin: 02/06/20 21:51 Dose: 1 mg Documented by: STROKE Vital Signs/Narrative: Vital Signs Temp Pulse Resp BP Pulse Ox 02/07/20 04:05 97.9 F 83 20 H 121/77 H 95 02/07/20 04:00 82 02/07/20 03:15 82 24 H 96 Medical Necessity - Tobacco Use Smoking Status: Former smoker Tobacco Use: Non-smoker Assessment/Plan All Active Problems (Last Updated 09/02/18 @ 13:55 by Katheryn Mosqueda) TUCKER (acute kidney injury) (Acute) a fib with rvr (Acute) COVID-19 virus infection (Acute) Acute respiratory failure with hypoxia (Acute) The patient is a 54 y/o M w/ PMHx: HTN, HLD, CKD stage III s/p renal transplant who presented to the [facility] ED on 01/18/20 secondary to recent diagnosis of Covid infection on 01/02/2020 with progressively worsening pulse oximeter, 45% per squad upon their evaluation with immediate placement on BiPAP and admission to the ICU. 1. Acute hypoxic respiratory failure secondary to acute COVID-19 Pneumonia and MRSE Bacteremia: Patient admitted to the ICU upon initial ED presentation, BiPAP attempted however eventually needed intubated with eventual extubation on 01/27/2020, blood cultures with MRSE bacteremia, repeat blood cultures on 01/28/2020 with no growth, completed antibiotic therapy, respiratory status has been slowly improving, completed Decadron with transition back to oral home baseline prednisone regimen, completed remdesivir per infectious disease discretion, patient had been on IV diuretics initially transition to oral diuretics with Lasix 40 mg p.o. twice daily however given increasing renal function de-escalation to Lasix 40 mg once daily on 02/06/2020 with weight down now to 152 pounds on 02/06/2020, continue to wean oxygen supplementation as able but has been vacillating between 6 and 8 L nasal cannula, once clinically appropriate will require [facility] facility placement, infectious disease and pulmonary medicine following as noted, PT/OT/case management consultation for discharge planning. Continue BIPAP as needed and q HS. Planned SNF once pre-certification obtained, possibly this coming week Sunday. 2. Acute kidney injury on CKD stage III s/p Renal Transplant: Secondary to #1 with ATN. Recent admission with creatinine on 01/18/2020 2.79 however increased on 01/21/2020 up to 4.71, prior baseline creatinine noted to be 1.6-1.8, 02/07/20 BUN/creatinine 64/1.88. Given increasing creatinine and significant negative fluid status following Lasix diuresis 02/06/20 transition to Lasix 40 mg p.o. once daily. Patient's renal transplant surgeon was contacted upon initial presentation to the ED and requested that patient CellCept be held, continued on tacrolimus regimen as well as daily prednisone regimen. Nephrology following, encouraged avoidance of nephrotoxin regimen with vancomycin dosing per pharmacy. 02/07/20 tacrolimus level pending. 3. New onset PAF with episode RVR with indeterminate cardiac enzyme: Patient with complicated presentation, initially required Cardizem drip, currently maintained on amiodarone as well as Eliquis regimen, cardiology consulted and following. 01/18/2020 troponin 0 0.162, repeat 01/26/2020 0.098, likely demand given acute presentation #1. 11/2018 echocardiogram at that time with normal LV size, EF 55%, PASP 25 to 30 mmHg. Continued monitoring of tacrolimus level given possible interaction with amiodarone 02/07/20 level pending. 4. Diabetes mellitus type II: Admission hemoglobin A1c 6.6, new onset, initially had been on scheduled Lantus with increased steroid usage transiently, currently has been held several times secondary to low blood sugars, continued and maintained on ADA diet with Accu-Cheks with insulin sliding scale only. 5. Chronic normocytic anemia: Admission hemoglobin 12.8, has vacillated during presentation, 02/07/20 hemoglobin 9.7 with primary trending 9-10 range, stable, continue to trend. 6. Anxiety and depression: We will continue patient home Paxil regimen. 7. GERD: We will maintain PPI. 8. DVT prophylaxis: SCDs, Eliquis. 9. CODE STATUS: Full. Inpatient E&M: 51695 Subs Hosp L2
[2020-02-07 07:50] LABS: ALB/GLOB Ratio 0.3 RATIO (0.9-2.4); AST(SGOT) 44 U/L (15-37); Alanine Aminotransfer ALT/SGPT 76 U/L (16-61); Albumin, Serum 1.8 g/dL (3.2-5.0); Alkaline Phosphatase 85 U/L (45-117); Anion Gap 9 (5-15); BUN 64 mg/dL (7-18); Calcium,Total 9.1 mg/dL (8.5-10.1); Chloride 100 mmol/L (98-107); Creatinine, Serum 1.88 mg/dL (0.70-1.30); EST Glomerular Filtration Rate 40 mL/min (>60); Est Glom Filt Rate - Afr Amer 48 mL/min (>60); Estimated Creatinine Clearance 43.46 ml/min; Globulin 5.4 g/dL (2.2-4.2); Glucose 92 mg/dL (74-106); Potassium 3.9 mmol/L (3.5-5.1); Protein, Total 7.2 g/dL (6.4-8.2); Sodium Level 133 mmol/L (136-145)
[2020-02-07] MEDS: Menthol/Lanolin/Calamine/Znox 113 GM Tube 1 APPLIC TOPICAL ×2 (08:15→21:06)
[2020-02-07] MEDS: Metoprolol Tartrate 100 MG Tablet PO ×2 (08:16→21:02)
[2020-02-07] MEDS: Furosemide 40 MG Tablet PO (08:18)
[2020-02-07] MEDS: predniSONE 5 MG Tablet 7.5 MG PO (08:18)
[2020-02-07] MEDS: Tacrolimus 0.5 MG Capsule 1 MG PO ×2 (08:18→21:03)
[2020-02-07] MEDS: Pantoprazole Sodium 40 MG Tablet PO ×2 (08:19→21:02)
[2020-02-07] MEDS: Amiodarone 200 MG Tablet PO ×2 (08:19→21:03)
[2020-02-07] MEDS: APIXABAN 5 MG TABLET PO ×2 (08:19→21:03)
[2020-02-07] MEDS: Paroxetine 20 MG Tablet PO (08:19)
[2020-02-07 09:12] LABS: Absolute Lymphocyte Count 1.22 X10^3/uL (0.83-4.51); Absolute Neutrophil Count 10.6 X10^3/uL (2.0-7.7); Basophil# 0.08 X10^3/uL; Basophil% 0.6 % (0-1); Eosinophil# 1.01 X10^3/uL; Hematocrit 32.2 % (40-54); Hemoglobin 9.7 g/dL (13.0-16.5); Lymphocyte # 1.22 X10^3/ul (4.0); Lymphocyte % 8.4 % (19-41); Mean Corp Hgb Conc 30.1 g/dL (32-36); Mean Corpuscular Hgb 26.9 pg (27.0-32.0); Mean Corpuscular Volume 89.2 fL (80-94); Mean Platelet Vol. 10.5 fl (6.2-12.0); Monocyte# 1.24 X10^3/uL; Monocyte% 8.6 % (0-10); NRBC Flagged by Analyzer 0.1 % (0-5); Neutrophil # 10.57 X10^3/uL (2.7-7.7); Neutrophil % 72.8 % (47-70); Platelet Count 464 K/mm3 (150-450); RBC Distribution Width CV 14.1 % (11.6-14.6); RBC Distribution Width SD 44.7 fl (35.1-43.9); Red Blood Count 3.61 M/mm3 (4.6-6.2); White Blood Count 14.5 K/mm3 (4.4-11.0)
[2020-02-07 11:26] LABS: Bedside Glucose 95 mg/dL (70-110)
[2020-02-07] MEDS: Insulin Lispro 100 UNIT/ML INSULN.PEN SC ×2 (11:58→21:06)
[2020-02-07 12:15] LABS: Bedside Glucose 187 mg/dL (70-110)
--- NOTE | 2020-02-07 16:02 | PCM.PN.REN ---
Patient Problems: Active and Suspected Problems (Last Updated 09/02/18 @ 13:55 by Katheryn Mosqueda) TUCKER (acute kidney injury) (Acute) a fib with rvr (Acute) COVID-19 virus infection (Acute) Acute respiratory failure with hypoxia (Acute) Subjective: Patient is still requiring high NC at8 l/min awake alert. tired looking - Physical Exam Vitals/I&O's: Vital Signs Temp Pulse Resp BP Pulse Ox 98.5 F 87 18 123/74 H 93 02/07/20 15:44 02/07/20 15:44 02/07/20 15:44 02/07/20 15:44 02/07/20 15:44 Oxygen Flow Rate (L/min) 9 Oxygen Delivery Method Nasal Cannula Weight: 69.9 kg Body Mass Index (BMI) 26.0 Intake and Output for Last 24 Hours 02/05/20 02/06/20 02/07/20 23:59 23:59 23:59 Intake Total 600 / 600 800 / 800 850 / 850 Output Total 1450 / 1450 2325 / 2325 700 / 700 Balance -850 / -850 -1525 / -1525 150 / 150 General: Alert, Oriented x3 HEENT: Atraumatic Neck: Supple, No JVD Lungs: - - decreased BS over both lungs bases Cardiovascular: Regular rate, Regular Rhythm, Normal S1, Normal S2 Abdomen: Bowel Sounds Present, Soft, Non Tender, Non-Distended Extremities: No clubbing, No cyanosis, No edema Skin: No rashes Lymphatic: No Cervical, Supraclavicular, or Inguinal Adenopathy Psych/Mental Status: Appropriate Laboratory Results 02/06/20 16:41: POC Glucose 199 H 02/06/20 21:49: POC Glucose 137 H 02/07/20 06:49: WBC 14.5 H, RBC 3.61 L, Hgb 9.7 L, Hct 32.2 L, MCV 89.2, MCH 26.9 L, MCHC 30.1 L, RDW Std Deviation 44.7 H, RDW Coeff of Genaro 14.1, Plt Count 464 H, MPV 10.5, Immature Gran % (Auto) 2.600 H, Neut % (Auto) 72.8 H, Lymph % (Auto) 8.4 L, Grimes % (Auto) 8.6, Eos % (Auto) 7.0 H, Baso % (Auto) 0.6, Absolute Neuts (auto) 10.6 H, Absolute Lymphs (auto) 1.22, Nucleated RBC % 0.1 02/07/20 06:49: Sodium 133 L, Potassium 3.9, Chloride 100, Carbon Dioxide 24.0, Anion Gap 9, BUN 64 H, Creatinine 1.88 H, Estim Creat Clear Calc 43.46, Est GFR (MDRD) Af Amer 48 L, Est GFR (MDRD) Non-Af 40 L, BUN/Creatinine Ratio 34.0 H, Glucose 92, Calcium 9.1, Total Bilirubin 0.30, AST 44 H, ALT 76 H, Alkaline Phosphatase 85, Total Protein 7.2, Albumin 1.8 L, Globulin 5.4 H, Albumin/Globulin Ratio 0.3 L 02/07/20 06:49: Tacrolimus Pending 02/07/20 08:13: POC Glucose 95 02/07/20 11:57: POC Glucose 187 H Current Medications Acetaminophen (Acetaminophen 325 Mg Tablet) 650 mg PO Q6H PRN PRN PRN Reason: Pain Score 1-10 Last Admin: 02/04/20 12:14 Dose: 650 mg Documented by: Albuterol Sulfate (Albuterol 2.5 Mg/3 Ml Vial.Neb.) 2.5 mg INHALATION Q2H PRN PRN PRN Reason: WHEEZING Amiodarone HCl (Amiodarone 200 Mg Tablet) 200 mg PO BID [facility] Stop: 02/18/20 22:01 Last Admin: 02/07/20 08:19 Dose: 200 mg Documented by: Amiodarone HCl (Amiodarone 200 Mg Tablet) 200 mg PO DAILY [facility] Apixaban (Apixaban 5 Mg Tablet) 5 mg PO BID [facility] Last Admin: 02/07/20 08:19 Dose: 5 mg Documented by: Calamine/Phenol (Menthol/Lanolin/Calamine/Znox 113 Gm Tube) 1 applic TOPICAL BID [facility]; Protocol Last Admin: 02/07/20 08:15 Dose: 1 applicatio Documented by: Dextrose (Dextrose 50%-Water 25 Gm/50 Ml Disp.Syrin) 0 gm IV X1 PRN; Protocol PRN Reason: Hypoglycemia Furosemide (Furosemide 40 Mg Tablet) 40 mg PO DAILY [facility] Last Admin: 02/07/20 08:18 Dose: 40 mg Documented by: Glucagon (Glucagon 1 Mg/Ml Syringe) 1 mg IM .X1 PRN PRN Reason: Hypoglycemia Sodium Chloride () 250 mls @ 15 mls/hr IV .[id number] PRN PRN Reason: Saline Flush Last Infusion: 02/02/20 07:58 Dose: Infused Documented by: Sodium Chloride () 250 mls @ 15 mls/hr IV .[id number] PRN PRN Reason: Additional IVPB Infusion Insulin Human Lispro (Insulin Lispro 100 Unit/Ml Insuln.Pen) 0 unit SC [facility]; Protocol Last Admin: 02/07/20 11:58 Dose: 1 u Documented by: Metoprolol Tartrate (Metoprolol Tartrate 100 Mg Tablet) 100 mg PO BID [facility] Last Admin: 02/07/20 08:16 Dose: 100 mg Documented by: Ondansetron HCl (Ondansetron 4 Mg/2 Ml Vial) 4 mg IV Q8H PRN PRN PRN Reason: NAUSEA/VOMITING Pantoprazole Sodium (Pantoprazole Sodium 40 Mg Tablet) 40 mg PO BID [facility] Last Admin: 02/07/20 08:19 Dose: 40 mg Documented by: Paroxetine HCl (Paroxetine 20 Mg Tablet) 20 mg PO DAILY [facility] Last Admin: 02/07/20 08:19 Dose: 20 mg Documented by: Prednisone (Prednisone 5 Mg Tablet) 7.5 mg PO DAILY [facility] Last Admin: 02/07/20 08:18 Dose: 7.5 mg Documented by: Senna/Docusate Sodium (Senna/Docusate Sodium 1 Tablet) 2 tablet PO BID [facility] Last Admin: 02/07/20 08:18 Dose: Not Given Documented by: Sodium Chloride (0.9% Saline Lock 10 Ml Syringe) 10 - 40 ml IV UD PRN PRN Reason: SALINE FLUSH Last Admin: 02/05/20 21:41 Dose: 10 ml Documented by: Tacrolimus (Tacrolimus 0.5 Mg Capsule) 1 mg PO BID [facility] Last Admin: 02/07/20 08:18 Dose: 1 mg Documented by: Medical Necessity - Tobacco Use Smoking Status: Former smoker Tobacco Use: Non-smoker Assessment/Plan All Active Problems (Last Updated 09/02/18 @ 13:55 by Katheryn Mosqueda) TUCKER (acute kidney injury) (Acute) a fib with rvr (Acute) COVID-19 virus infection (Acute) Acute respiratory failure with hypoxia (Acute) 1- TUCKER on CKD stage 3. 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 Last prograf level o 02/01 is 6.4 Continue prednisone 7.5 mg PO daily 3- Acute RF from COVID-19 viral pneumonia s/pdecadron and remdesvir ID is following Ok to argeliae Will continue to follow. Please call if any question Kiah Maldonado MD
[2020-02-07 17:31] LABS: Bedside Glucose 117 mg/dL (70-110)
[2020-02-07] MEDS: Senna/Docusate Sodium 1 Tablet 2 TABLET PO (21:02)
[2020-02-07 21:45] LABS: Bedside Glucose 213 mg/dL (70-110)
[2020-02-08] VITALS (15 sets, daily range): BP systolic 108–119; BP diastolic 62–74; PULSE 76–90; RESP 20; TEMP 36.1–36.9; O2SAT 91–97
[2020-02-08] MEDS: Acetaminophen 325 MG Tablet 650 MG PO ×2 (02:34→20:53)
[2020-02-08 06:31] LABS: Bedside Glucose 114 mg/dL (70-110)
[2020-02-08 06:46] LABS: Absolute Lymphocyte Count 1.29 X10^3/uL (0.83-4.51); Absolute Neutrophil Count 10.9 X10^3/uL (2.0-7.7); Basophil# 0.05 X10^3/uL; Basophil% 0.3 % (0-1); Eosinophil# 1.09 X10^3/uL; Eosinophils% 7.3 % (0-5); Hematocrit 32.2 % (40-54); Hemoglobin 9.7 g/dL (13.0-16.5); Lymphocyte # 1.29 X10^3/ul (4.0); Lymphocyte % 8.6 % (19-41); Mean Corp Hgb Conc 30.1 g/dL (32-36); Mean Corpuscular Hgb 26.8 pg (27.0-32.0); Mean Platelet Vol. 9.8 fl (6.2-12.0); Monocyte# 1.31 X10^3/uL; Monocyte% 8.7 % (0-10); NRBC Flagged by Analyzer 0.2 % (0-5); Neutrophil # 10.86 X10^3/uL (2.7-7.7); Neutrophil % 72.5 % (47-70); Platelet Count 462 K/mm3 (150-450); RBC Distribution Width CV 14.4 % (11.6-14.6); RBC Distribution Width SD 45.6 fl (35.1-43.9); Red Blood Count 3.62 M/mm3 (4.6-6.2)
[2020-02-08 07:01] LABS: ALB/GLOB Ratio 0.3 RATIO (0.9-2.4); AST(SGOT) 56 U/L (15-37); Alanine Aminotransfer ALT/SGPT 88 U/L (16-61); Albumin, Serum 1.8 g/dL (3.2-5.0); Alkaline Phosphatase 88 U/L (45-117); Anion Gap 9 (5-15); BUN 58 mg/dL (7-18); BUN/Creat Ratio 31.9 RATIO (10-20); Calcium,Total 9.1 mg/dL (8.5-10.1); Chloride 100 mmol/L (98-107); Creatinine, Serum 1.82 mg/dL (0.70-1.30); EST Glomerular Filtration Rate 41 mL/min (>60); Est Glom Filt Rate - Afr Amer 50 mL/min (>60); Estimated Creatinine Clearance 44.69 ml/min; Globulin 5.4 g/dL (2.2-4.2); Glucose 90 mg/dL (74-106); Potassium 3.9 mmol/L (3.5-5.1); Protein, Total 7.2 g/dL (6.4-8.2); Sodium Level 134 mmol/L (136-145)
--- NOTE | 2020-02-08 07:01 | PCM.PN.HOSP ---
Patient Problems: Active and Suspected Problems (Last Updated 09/02/18 @ 13:55 by Katheryn Mosqueda) TUCKER (acute kidney injury) (Acute) a fib with rvr (Acute) COVID-19 virus infection (Acute) Acute respiratory failure with hypoxia (Acute) Subjective: The patient is a 54 y/o M w/ PMHx: HTN, HLD, CKD stage III s/p renal transplant who presented to the [facility] ED on 01/18/20 secondary to recent diagnosis of Covid infection on 01/02/2020 with progressively worsening pulse oximeter, 45% per squad upon their evaluation with immediate placement on BiPAP and admission to the ICU. Patient admitted to the ICU upon initial ED presentation, BiPAP attempted however eventually needed intubated with eventual extubation on 01/27/2020, blood cultures with MRSE bacteremia, repeat blood cultures on 01/28/2020 with no growth, completed antibiotic therapy, respiratory status has been slowly improving, completed Decadron with transition back to oral home baseline prednisone regimen, completed remdesivir per infectious disease discretion, patient had been on IV diuretics initially transition to oral diuretics with Lasix 40 mg p.o. twice daily however given increasing renal function de-escalation to Lasix 40 mg once daily on 02/06/2020 with weight down now to 152 pounds on 02/06/2020, continue to wean oxygen supplementation as able but has been vacillating between 6 and 8 L nasal cannula, once clinically appropriate will require senior care facility placement, infectious disease and pulmonary medicine following as noted, PT/OT/case management consultation for discharge planning. Continue BIPAP as needed and q HS. Patient wit Acute kidney injury on CKD stage III s/p Renal Transplant: Secondary to #1 with ATN with noted recent admission with creatinine on 01/18/2020 2.79 however increased on 01/21/2020 up to 4.71, prior baseline creatinine noted to be 1.6-1.8, 02/08/20 BUN/creatinine 58/1.82. Given increasing creatinine and significant negative fluid status following Lasix diuresis 02/06/20 transition to Lasix 40 mg p.o. once daily to which pulmonary medicine was amenable however if needed may increase further. Patient's renal transplant surgeon was contacted upon initial presentation to the ED and requested that patient CellCept be held, continued on tacrolimus regimen as well as daily prednisone regimen. Nephrology following, encouraged avoidance of nephrotoxin regimen with vancomycin dosing per pharmacy. 02/07/20 tacrolimus level pending at level 02/08/2020 requested per nephrology. Patient with also PAF with RVR during presentation, initially required Cardizem drip, currently maintained on amiodarone as well as Eliquis regimen, cardiology consulted and following. 01/18/2020 troponin 0 0.162, repeat 01/26/2020 0.098, likely demand given acute presentation #1. 11/2018 echocardiogram at that time with normal LV size, EF 55%, PASP 25 to 30 mmHg. Continued monitoring of tacrolimus level given possible interaction with amiodarone with both 02/07/20 and repeat requested level per nephrology 02/08/2020 pending. Admission hemoglobin A1c 6.6, new onset, initially had been on scheduled Lantus with increased steroid usage transiently, currently has been held several times secondary to low blood sugars, continued and maintained on ADA diet with Accu-Cheks with insulin sliding scale only. Planned SNF once pre-certification obtained and clinically appropriate. Patient with no acute events overnight per self and per nursing report however did refuse his BiPAP overnight and remained on 8 to 9 L nasal cannula with ongoing increased respiratory rate. Strongly encouraged reconsideration but declined. Patient is also continued to be less active despite encouragement and discussed again that regular movement and usage of incentive spirometry is paramount. Patient prior abdominal complaints with lower abdominal discomfort and cramping has since resolved. Patient denies fevers, chills, nausea, emesis, abdominal pain, chest pain. Objective: Physical Examination: General: awake, alert, oriented x 3 and cooperative, seated upright in the medical surgical bed, remains fatigued in appearance, similar unchanged increased respiratory rate. Skin: normal color, turgor, no icterus, cyanosis. HEENT: AT/NC, EOMI, PERRLA, MMM. Lungs: Continued diminished breath sounds, greater bases, increased respiratory rate with shallow breaths, poor effort, no rales, ronchi or wheezing. Heart: Regular rate and rhythm; no gallop, rub audible. Abdomen: soft, NTTP, ND, normal BS. Extremities: no cyanosis, clubbing, or edema. Neurological: patient awake, alert, oriented as noted; cognitive function intact; pupils equally reactive to light and accomodation; cranial nerves II-XII grossly normal, moving all 4 extremities, no focal deficits, strength remains severely globally decreased given acute presentation. Psychiatric: affect remains flat, fatigued, no acute evidence of depressive or anxiety feelings. Vitals/I&O's: Vital Signs Temp Pulse Resp BP Pulse Ox 97.3 F L 78 20 H 119/69 94 02/08/20 02:33 02/08/20 05:19 02/08/20 02:33 02/08/20 02:33 02/08/20 02:33 Oxygen Flow Rate (L/min) 9 Oxygen Delivery Method Nasal Cannula Weight: 150 lb 2.157 oz Body Mass Index (BMI) 26.0 Intake and Output for Last 24 Hours 02/06/20 02/07/20 02/08/20 23:59 23:59 23:59 Intake Total 800 / 800 800 / 800 250 / 250 Output Total 2325 / 2325 2650 / 2650 600 / 600 Balance -1525 / -1525 -1850 / -1850 -350 / -350 Laboratory Results 02/07/20 06:49: WBC 14.5 H, RBC 3.61 L, Hgb 9.7 L, Hct 32.2 L, MCV 89.2, MCH 26.9 L, MCHC 30.1 L, RDW Std Deviation 44.7 H, RDW Coeff of Genaro 14.1, Plt Count 464 H, MPV 10.5, Immature Gran % (Auto) 2.600 H, Neut % (Auto) 72.8 H, Lymph % (Auto) 8.4 L, [place] % (Auto) 8.6, Eos % (Auto) 7.0 H, Baso % (Auto) 0.6, Absolute Neuts (auto) 10.6 H, Absolute Lymphs (auto) 1.22, Nucleated RBC % 0.1 02/07/20 06:49: Sodium 133 L, Potassium 3.9, Chloride 100, Carbon Dioxide 24.0, Anion Gap 9, BUN 64 H, Creatinine 1.88 H, Estim Creat Clear Calc 43.46, Est GFR (MDRD) Af Amer 48 L, Est GFR (MDRD) Non-Af 40 L, BUN/Creatinine Ratio 34.0 H, Glucose 92, Calcium 9.1, Total Bilirubin 0.30, AST 44 H, ALT 76 H, Alkaline Phosphatase 85, Total Protein 7.2, Albumin 1.8 L, Globulin 5.4 H, Albumin/Globulin Ratio 0.3 L 02/07/20 06:49: Tacrolimus Pending 02/07/20 08:13: POC Glucose 95 02/07/20 11:57: POC Glucose 187 H 02/07/20 17:13: POC Glucose 117 H 02/07/20 21:05: POC Glucose 213 H 02/08/20 05:31: WBC 15.0 H, RBC 3.62 L, Hgb 9.7 L, Hct 32.2 L, MCV 89.0, MCH 26.8 L, MCHC 30.1 L, RDW Std Deviation 45.6 H, RDW Coeff of Genaro 14.4, Plt Count 462 H, MPV 9.8, Immature Gran % (Auto) 2.600 H, Neut % (Auto) 72.5 H, Lymph % (Auto) 8.6 L, [place] % (Auto) 8.7, Eos % (Auto) 7.3 H, Baso % (Auto) 0.3, Absolute Neuts (auto) 10.9 H, Absolute Lymphs (auto) 1.29, Nucleated RBC % 0.2 02/08/20 05:31: Sodium Pending, Potassium Pending, Chloride Pending, Carbon Dioxide Pending, Anion Gap Pending, BUN Pending, Creatinine Pending, Est GFR (MDRD) Af Amer Pending, Est GFR (MDRD) Non-Af Pending, BUN/Creatinine Ratio Pending, Glucose Pending, Calcium Pending, Total Bilirubin Pending, AST Pending, ALT Pending, Alkaline Phosphatase Pending, Total Protein Pending, Albumin Pending 02/08/20 05:31: Tacrolimus Pending 02/08/20 06:15: POC Glucose 114 H Current Medications Acetaminophen (Acetaminophen 325 Mg Tablet) 650 mg PO Q6H PRN PRN PRN Reason: Pain Score 1-10 Last Admin: 02/08/20 02:34 Dose: 650 mg Documented by: Albuterol Sulfate (Albuterol 2.5 Mg/3 Ml Vial.Neb.) 2.5 mg INHALATION Q2H PRN PRN PRN Reason: WHEEZING Amiodarone HCl (Amiodarone 200 Mg Tablet) 200 mg PO BID [facility] Stop: 02/18/20 22:01 Last Admin: 02/07/20 21:03 Dose: 200 mg Documented by: Amiodarone HCl (Amiodarone 200 Mg Tablet) 200 mg PO DAILY [facility] Apixaban (Apixaban 5 Mg Tablet) 5 mg PO BID [facility] Last Admin: 02/07/20 21:03 Dose: 5 mg Documented by: Calamine/Phenol (Menthol/Lanolin/Calamine/Znox 113 Gm Tube) 1 applic TOPICAL BID [facility]; Protocol Last Admin: 02/07/20 21:06 Dose: 1 applicatio Documented by: Dextrose (Dextrose 50%-Water 25 Gm/50 Ml Disp.Syrin) 0 gm IV X1 PRN; Protocol PRN Reason: Hypoglycemia Furosemide (Furosemide 40 Mg Tablet) 40 mg PO DAILY [facility] Last Admin: 02/07/20 08:18 Dose: 40 mg Documented by: Glucagon (Glucagon 1 Mg/Ml Syringe) 1 mg IM .X1 PRN PRN Reason: Hypoglycemia Sodium Chloride () 250 mls @ 15 mls/hr IV .[id number] PRN PRN Reason: Saline Flush Last Infusion: 02/02/20 07:58 Dose: Infused Documented by: Sodium Chloride () 250 mls @ 15 mls/hr IV .[id number] PRN PRN Reason: Additional IVPB Infusion Insulin Human Lispro (Insulin Lispro 100 Unit/Ml Insuln.Pen) 0 unit SC [facility]; Protocol Last Admin: 02/08/20 06:15 Dose: Not Given Documented by: Metoprolol Tartrate (Metoprolol Tartrate 100 Mg Tablet) 100 mg PO BID [facility] Last Admin: 02/07/20 21:02 Dose: 100 mg Documented by: Ondansetron HCl (Ondansetron 4 Mg/2 Ml Vial) 4 mg IV Q8H PRN PRN PRN Reason: NAUSEA/VOMITING Pantoprazole Sodium (Pantoprazole Sodium 40 Mg Tablet) 40 mg PO BID [facility] Last Admin: 02/07/20 21:02 Dose: 40 mg Documented by: Paroxetine HCl (Paroxetine 20 Mg Tablet) 20 mg PO DAILY [facility] Last Admin: 02/07/20 08:19 Dose: 20 mg Documented by: Prednisone (Prednisone 5 Mg Tablet) 7.5 mg PO DAILY [facility] Last Admin: 02/07/20 08:18 Dose: 7.5 mg Documented by: Senna/Docusate Sodium (Senna/Docusate Sodium 1 Tablet) 2 tablet PO BID [facility] Last Admin: 02/07/20 21:02 Dose: 2 tablet Documented by: Sodium Chloride (0.9% Saline Lock 10 Ml Syringe) 10 - 40 ml IV UD PRN PRN Reason: SALINE FLUSH Last Admin: 02/05/20 21:41 Dose: 10 ml Documented by: Tacrolimus (Tacrolimus 0.5 Mg Capsule) 1 mg PO BID [facility] Last Admin: 02/07/20 21:03 Dose: 1 mg Documented by: STROKE Vital Signs/Narrative: Vital Signs Pulse 02/08/20 05:19 78 Medical Necessity - Tobacco Use Smoking Status: Former smoker Tobacco Use: Non-smoker Assessment/Plan All Active Problems (Last Updated 09/02/18 @ 13:55 by Katheryn Mosqueda) TUCKER (acute kidney injury) (Acute) a fib with rvr (Acute) COVID-19 virus infection (Acute) Acute respiratory failure with hypoxia (Acute) The patient is a 54 y/o M w/ PMHx: HTN, HLD, CKD stage III s/p renal transplant who presented to the [facility] ED on 01/18/20 secondary to recent diagnosis of Covid infection on 01/02/2020 with progressively worsening pulse oximeter, 45% per squad upon their evaluation with immediate placement on BiPAP and admission to the ICU. 1. Acute hypoxic respiratory failure secondary to acute COVID-19 Pneumonia and MRSE Bacteremia: Patient admitted to the ICU upon initial ED presentation, BiPAP attempted however eventually needed intubated with eventual extubation on 01/27/2020, blood cultures with MRSE bacteremia, repeat blood cultures on 01/28/2020 with no growth, completed antibiotic therapy, respiratory status has been slowly improving, completed Decadron with transition back to oral home baseline prednisone regimen, completed remdesivir per infectious disease discretion, patient had been on IV diuretics initially transition to oral diuretics with Lasix 40 mg p.o. twice daily however given increasing renal function de-escalation to Lasix 40 mg once daily on 02/06/2020 with weight down now to 152 pounds on 02/06/2020, continue to wean oxygen supplementation as able but has been vacillating between 6 and 8 L nasal cannula, once clinically appropriate will require senior care facility placement, infectious disease and pulmonary medicine following as noted, PT/OT/case management consultation for discharge planning. Continue BIPAP as needed and q HS. Planned SNF once pre-certification obtained, possibly this coming week Sunday. 2. Acute kidney injury on CKD stage III s/p Renal Transplant: Secondary to #1 with ATN. Recent admission with creatinine on 01/18/2020 2.79 however increased on 01/21/2020 up to 4.71, prior baseline creatinine noted to be 1.6-1.8, 02/08/20 BUN/creatinine 58/1.82. Given increasing creatinine and significant negative fluid status following Lasix diuresis 02/06/20 transition to Lasix 40 mg p.o. once daily to which pulmonary medicine was amenable however if needed may increase further. Patient's renal transplant surgeon was contacted upon initial presentation to the ED and requested that patient CellCept be held, continued on tacrolimus regimen as well as daily prednisone regimen. Nephrology following, encouraged avoidance of nephrotoxin regimen with vancomycin dosing per pharmacy. 02/07/20 tacrolimus level pending at level 02/08/2020 requested per nephrology. 3. New onset PAF with episode RVR with indeterminate cardiac enzyme: Patient with complicated presentation, initially required Cardizem drip, currently maintained on amiodarone as well as Eliquis regimen, cardiology consulted and following. 01/18/2020 troponin 0 0.162, repeat 01/26/2020 0.098, likely demand given acute presentation #1. 11/2018 echocardiogram at that time with normal LV size, EF 55%, PASP 25 to 30 mmHg. Continued monitoring of tacrolimus level given possible interaction with amiodarone with both 02/07/20 and repeat requested level per nephrology 02/08/2020 pending. 4. Diabetes mellitus type II: Admission hemoglobin A1c 6.6, new onset, initially had been on scheduled Lantus with increased steroid usage transiently, currently has been held several times secondary to low blood sugars, continued and maintained on ADA diet with Accu-Cheks with insulin sliding scale only. 5. Chronic normocytic anemia: Admission hemoglobin 12.8, has vacillated during presentation, 02/08/20 hemoglobin 9.7 with primary trending 9-10 range, stable, continue to trend. 6. Anxiety and depression: We will continue patient home Paxil regimen. 7. GERD: We will maintain PPI. 8. DVT prophylaxis: SCDs, Eliquis. 9. CODE STATUS: Full. Inpatient E&M: 62989 Subs Hosp L2
[2020-02-08] MEDS: Amiodarone 200 MG Tablet PO ×2 (11:42→20:52)
[2020-02-08] MEDS: Pantoprazole Sodium 40 MG Tablet PO ×2 (11:43→20:53)
[2020-02-08] MEDS: predniSONE 5 MG Tablet 7.5 MG PO (11:43)
[2020-02-08] MEDS: APIXABAN 5 MG TABLET PO ×2 (11:44→20:53)
[2020-02-08] MEDS: Tacrolimus 0.5 MG Capsule 1 MG PO ×2 (11:44→20:54)
[2020-02-08] MEDS: Senna/Docusate Sodium 1 Tablet 2 TABLET PO ×2 (11:45→20:52)
[2020-02-08] MEDS: Metoprolol Tartrate 100 MG Tablet PO ×2 (11:46→20:52)
[2020-02-08] MEDS: Furosemide 40 MG Tablet PO (11:46)
[2020-02-08] MEDS: Paroxetine 20 MG Tablet PO (11:47)
[2020-02-08] MEDS: Menthol/Lanolin/Calamine/Znox 113 GM Tube 1 APPLIC TOPICAL ×2 (11:49→20:54)
[2020-02-08 13:21] LABS: Bedside Glucose 136 mg/dL (70-110)
--- NOTE | 2020-02-08 16:49 | PN.RENAL_ITS ---
Patient Problems: Active and Suspected Problems (Last Updated 09/02/18 @ 13:55 by Katheryn Mosqueda) TUCKER (acute kidney injury) (Acute) a fib with rvr (Acute) COVID-19 virus infection (Acute) Acute respiratory failure with hypoxia (Acute) Subjective: Patient still requiring NC at 8-9 l/min refused BiPAP during night No N/D/V - Physical Exam Vitals/I&O's: Vital Signs Temp Pulse Resp BP Pulse Ox 98 F 78 20 H 108/69 94 02/08/20 14:38 02/08/20 14:38 02/08/20 14:38 02/08/20 12:30 02/08/20 14:38 Oxygen Flow Rate (L/min) 8 Oxygen Delivery Method Nasal Cannula Weight: 68.1 kg Body Mass Index (BMI) 26.0 Intake and Output for Last 24 Hours 02/06/20 02/07/20 02/08/20 23:59 23:59 23:59 Intake Total 800 / 800 800 / 800 490 / 490 Output Total 2325 / 2325 2650 / 2650 1050 / 1050 Balance -1525 / -1525 -1850 / -1850 -560 / -560 Comment: No physical exam performed today to limit exposure to COVID-19 infection Laboratory Results 02/07/20 17:13: POC Glucose 117 H 02/07/20 21:05: POC Glucose 213 H 02/08/20 05:31: WBC 15.0 H, RBC 3.62 L, Hgb 9.7 L, Hct 32.2 L, MCV 89.0, MCH 26.8 L, MCHC 30.1 L, RDW Std Deviation 45.6 H, RDW Coeff of Genaro 14.4, Plt Count 462 H, MPV 9.8, Immature Gran % (Auto) 2.600 H, Neut % (Auto) 72.5 H, Lymph % (Auto) 8.6 L, [place] % (Auto) 8.7, Eos % (Auto) 7.3 H, Baso % (Auto) 0.3, Absolute Neuts (auto) 10.9 H, Absolute Lymphs (auto) 1.29, Nucleated RBC % 0.2 02/08/20 05:31: Sodium 134 L, Potassium 3.9, Chloride 100, Carbon Dioxide 25.0, Anion Gap 9, BUN 58 H, Creatinine 1.82 H, Estim Creat Clear Calc 44.69, Est GFR (MDRD) Af Amer 50 L, Est GFR (MDRD) Non-Af 41 L, BUN/Creatinine Ratio 31.9 H, Glucose 90, Calcium 9.1, Total Bilirubin 0.20, AST 56 H, ALT 88 H, Alkaline Phosphatase 88, Total Protein 7.2, Albumin 1.8 L, Globulin 5.4 H, Albumin/Globulin Ratio 0.3 L 02/08/20 05:31: Tacrolimus Pending 02/08/20 06:15: POC Glucose 114 H 02/08/20 12:36: POC Glucose 136 H Current Medications Acetaminophen (Acetaminophen 325 Mg Tablet) 650 mg PO Q6H PRN PRN PRN Reason: Pain Score 1-10 Last Admin: 02/08/20 02:34 Dose: 650 mg Documented by: Albuterol Sulfate (Albuterol 2.5 Mg/3 Ml Vial.Neb.) 2.5 mg INHALATION Q2H PRN PRN PRN Reason: WHEEZING Amiodarone HCl (Amiodarone 200 Mg Tablet) 200 mg PO BID [facility] Stop: 02/18/20 22:01 Last Admin: 02/08/20 11:42 Dose: 200 mg Documented by: Amiodarone HCl (Amiodarone 200 Mg Tablet) 200 mg PO DAILY [facility] Apixaban (Apixaban 5 Mg Tablet) 5 mg PO BID [facility] Last Admin: 02/08/20 11:44 Dose: 5 mg Documented by: Calamine/Phenol (Menthol/Lanolin/Calamine/Znox 113 Gm Tube) 1 applic TOPICAL BID [facility]; Protocol Last Admin: 02/08/20 11:49 Dose: 1 applicatio Documented by: Dextrose (Dextrose 50%-Water 25 Gm/50 Ml Disp.Syrin) 0 gm IV X1 PRN; Protocol PRN Reason: Hypoglycemia Furosemide (Furosemide 40 Mg Tablet) 40 mg PO DAILY [facility] Last Admin: 02/08/20 11:46 Dose: 40 mg Documented by: Glucagon (Glucagon 1 Mg/Ml Syringe) 1 mg IM .X1 PRN PRN Reason: Hypoglycemia Sodium Chloride () 250 mls @ 15 mls/hr IV .[id number] PRN PRN Reason: Saline Flush Last Infusion: 02/02/20 07:58 Dose: Infused Documented by: Sodium Chloride () 250 mls @ 15 mls/hr IV .[id number] PRN PRN Reason: Additional IVPB Infusion Insulin Human Lispro (Insulin Lispro 100 Unit/Ml Insuln.Pen) 0 unit SC ACHS [facility]; Protocol Last Admin: 02/08/20 12:38 Dose: Not Given Documented by: Metoprolol Tartrate (Metoprolol Tartrate 100 Mg Tablet) 100 mg PO BID [facility] Last Admin: 02/08/20 11:46 Dose: 100 mg Documented by: Ondansetron HCl (Ondansetron 4 Mg/2 Ml Vial) 4 mg IV Q8H PRN PRN PRN Reason: NAUSEA/VOMITING Pantoprazole Sodium (Pantoprazole Sodium 40 Mg Tablet) 40 mg PO BID [facility] Last Admin: 02/08/20 11:43 Dose: 40 mg Documented by: Paroxetine HCl (Paroxetine 20 Mg Tablet) 20 mg PO DAILY [facility] Last Admin: 02/08/20 11:47 Dose: 20 mg Documented by: Prednisone (Prednisone 5 Mg Tablet) 7.5 mg PO DAILY [facility] Last Admin: 02/08/20 11:43 Dose: 7.5 mg Documented by: Senna/Docusate Sodium (Senna/Docusate Sodium 1 Tablet) 2 tablet PO BID [facility] Last Admin: 02/08/20 11:45 Dose: 2 tablet Documented by: Sodium Chloride (0.9% Saline Lock 10 Ml Syringe) 10 - 40 ml IV UD PRN PRN Reason: SALINE FLUSH Last Admin: 02/05/20 21:41 Dose: 10 ml Documented by: Tacrolimus (Tacrolimus 0.5 Mg Capsule) 1 mg PO BID [facility] Last Admin: 02/08/20 11:44 Dose: 1 mg Documented by: Medical Necessity - Tobacco Use Smoking Status: Former smoker Tobacco Use: Non-smoker Assessment/Plan All Active Problems (Last Updated 09/02/18 @ 13:55 by Katheryn Mosqueda) TUCKER (acute kidney injury) (Acute) a fib with rvr (Acute) COVID-19 virus infection (Acute) Acute respiratory failure with hypoxia (Acute) 1- TUCKER on CKD stage 3. 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 Last prograf level was 6.4 on 02/01 Continue prednisone 7.5 mg PO daily 3- Acute RF from COVID-19 viral pneumonia s/pdecadron and remdesvir ID is following Ok to jayda On NC Will continue to follow. Please call if any question Kiah Maldonado MD
[2020-02-08] MEDS: Insulin Lispro 100 UNIT/ML INSULN.PEN SC (17:10)
[2020-02-08 17:21] LABS: Bedside Glucose 215 mg/dL (70-110)
[2020-02-08 21:20] LABS: Bedside Glucose 145 mg/dL (70-110)
[2020-02-09] VITALS (14 sets, daily range): BP systolic 109–121; BP diastolic 68–78; PULSE 60–94; RESP 18–20; TEMP 36.3–37; O2SAT 92–96
[2020-02-09 06:00] LABS: Absolute Lymphocyte Count 1.48 X10^3/uL (0.83-4.51); Absolute Neutrophil Count 8.9 X10^3/uL (2.0-7.7); Basophil# 0.07 X10^3/uL; Basophil% 0.5 % (0-1); Eosinophil# 1.28 X10^3/uL; Eosinophils% 9.6 % (0-5); Hematocrit 32.6 % (40-54); Hemoglobin 9.8 g/dL (13.0-16.5); Lymphocyte # 1.48 X10^3/ul (4.0); Lymphocyte % 11.1 % (19-41); Mean Corp Hgb Conc 30.1 g/dL (32-36); Mean Corpuscular Hgb 26.8 pg (27.0-32.0); Mean Corpuscular Volume 89.1 fL (80-94); Mean Platelet Vol. 9.7 fl (6.2-12.0); Monocyte# 1.18 X10^3/uL; Monocyte% 8.9 % (0-10); NRBC Flagged by Analyzer 0 % (0-5); Neutrophil # 8.93 X10^3/uL (2.7-7.7); Neutrophil % 67.3 % (47-70); Platelet Count 480 K/mm3 (150-450); RBC Distribution Width CV 14.5 % (11.6-14.6); RBC Distribution Width SD 45.7 fl (35.1-43.9); Red Blood Count 3.66 M/mm3 (4.6-6.2); White Blood Count 13.3 K/mm3 (4.4-11.0)
[2020-02-09 06:25] LABS: Bedside Glucose 93 mg/dL (70-110)
[2020-02-09 06:33] LABS: ALB/GLOB Ratio 0.4 RATIO (0.9-2.4); AST(SGOT) 41 U/L (15-37); Alanine Aminotransfer ALT/SGPT 77 U/L (16-61); Albumin, Serum 1.9 g/dL (3.2-5.0); Alkaline Phosphatase 92 U/L (45-117); Anion Gap 9 (5-15); BUN 50 mg/dL (7-18); BUN/Creat Ratio 29.4 RATIO (10-20); Calcium,Total 9.1 mg/dL (8.5-10.1); Chloride 101 mmol/L (98-107); EST Glomerular Filtration Rate 45 mL/min (>60); Est Glom Filt Rate - Afr Amer 54 mL/min (>60); Estimated Creatinine Clearance 47.29 ml/min; Globulin 5.2 g/dL (2.2-4.2); Glucose 89 mg/dL (74-106); Potassium 3.6 mmol/L (3.5-5.1); Protein, Total 7.1 g/dL (6.4-8.2); Sodium Level 135 mmol/L (136-145)
[2020-02-09] MEDS: Menthol/Lanolin/Calamine/Znox 113 GM Tube 1 APPLIC TOPICAL ×2 (07:46→20:26)
[2020-02-09] MEDS: Amiodarone 200 MG Tablet PO ×2 (07:46→20:25)
[2020-02-09] MEDS: APIXABAN 5 MG TABLET PO (07:47)
[2020-02-09] MEDS: Metoprolol Tartrate 100 MG Tablet PO ×2 (07:47→20:25)
[2020-02-09] MEDS: Furosemide 40 MG Tablet PO (07:47)
[2020-02-09] MEDS: predniSONE 5 MG Tablet 7.5 MG PO (07:48)
[2020-02-09] MEDS: Senna/Docusate Sodium 1 Tablet 2 TABLET PO (07:49)
[2020-02-09] MEDS: Pantoprazole Sodium 40 MG Tablet PO ×2 (07:49→20:25)
[2020-02-09] MEDS: Tacrolimus 0.5 MG Capsule 1 MG PO ×2 (07:50→20:26)
[2020-02-09] MEDS: Paroxetine 20 MG Tablet PO (07:55)
--- NOTE | 2020-02-09 08:29 | CASEMGMT ---
Addendum entered by Ary Murray 02/09/20 15:31: SW spoke w/Danielle from [facility], they can take pt when ready. Once pt's oxygen levels remain below 10LPM both at rest and with ambulation, he may be ready for discharge. [facility] Original Note: CHRISTIANO called [facility], message left, updates faxed. [facility]
[2020-02-09] MEDS: Insulin Lispro 100 UNIT/ML INSULN.PEN SC ×2 (11:04→20:23)
[2020-02-09 11:50] LABS: Bedside Glucose 152 mg/dL (70-110)
--- NOTE | 2020-02-09 12:32 | PN_ITS ---
Patient Problems: Active and Suspected Problems (Last Updated 09/02/18 @ 13:55 by Katheryn Mosqueda) TUCKER (acute kidney injury) (Acute) a fib with rvr (Acute) COVID-19 virus infection (Acute) Acute respiratory failure with hypoxia (Acute) Reason for Visit: COVID 19 Subjective: Breathing well, but still requiring 6-8 liters oxygen. Vitals/I&O's: Vital Signs Temp Pulse Resp BP Pulse Ox 36.6 C 89 20 H 109/68 92 02/09/20 07:36 02/09/20 07:47 02/09/20 07:36 02/09/20 07:36 02/09/20 07:36 Oxygen Flow Rate (L/min) 6 Oxygen Delivery Method Nasal Cannula Weight: 67.3 kg Body Mass Index (BMI) 26.0 Intake and Output for Last 24 Hours 02/07/20 02/08/20 02/09/20 23:59 23:59 23:59 Intake Total 800 / 800 1290 / 1290 350 / 350 Output Total 2650 / 2650 1999 / 1999 500 / 500 Balance -1850 / -1850 -710 / -710 -150 / -150 General: Alert, No apparent distress HEENT: Atraumatic, Normocephalic Oral: Moist Mucosa, No Gingival or Mucosal Lesions/ Ulcerations Neck: No Nodes, Thyroid Normal Size and Texture Lungs: Normal air movement, - - coarse breath sounds Cardiovascular: Regular rate, Regular Rhythm, Normal S1, Normal S2 Abdomen: Bowel Sounds Present, Soft, Non Tender, Non-Distended, No Hepato- splenomegaly Extremities: No edema, No Calf Tenderness Skin: No rashes, No breakdown Psych/Mental Status: Normal Affect, Appropriate Laboratory Results 02/08/20 12:36: POC Glucose 136 H 02/08/20 17:03: POC Glucose 215 H 02/08/20 20:37: POC Glucose 145 H 02/09/20 04:54: WBC 13.3 H, RBC 3.66 L, Hgb 9.8 L, Hct 32.6 L, MCV 89.1, MCH 26.8 L, MCHC 30.1 L, RDW Std Deviation 45.7 H, RDW Coeff of Genaro 14.5, Plt Count 480 H, MPV 9.7, Immature Gran % (Auto) 2.600 H, Neut % (Auto) 67.3, Lymph % (Auto) 11.1 L, [place] % (Auto) 8.9, Eos % (Auto) 9.6 H, Baso % (Auto) 0.5, Absolute Neuts (auto) 8.9 H, Absolute Lymphs (auto) 1.48, Nucleated RBC % 0 02/09/20 04:54: Sodium 135 L, Potassium 3.6, Chloride 101, Carbon Dioxide 25.0, Anion Gap 9, BUN 50 H, Creatinine 1.70 H, Estim Creat Clear Calc 47.29, Est GFR (MDRD) Af Amer 54 L, Est GFR (MDRD) Non-Af 45 L, BUN/Creatinine Ratio 29.4 H, Glucose 89, Calcium 9.1, Total Bilirubin 0.40, AST 41 H, ALT 77 H, Alkaline Phosphatase 92, Total Protein 7.1, Albumin 1.9 L, Globulin 5.2 H, [place] min/Globulin Ratio 0.4 L 02/09/20 05:28: Tacrolimus Pending 02/09/20 06:16: POC Glucose 93 02/09/20 11:03: POC Glucose 152 H Current Medications Acetaminophen (Acetaminophen 325 Mg Tablet) 650 mg PO Q6H PRN PRN PRN Reason: Pain Score 1-10 Last Admin: 02/08/20 20:53 Dose: 650 mg Documented by: Albuterol Sulfate (Albuterol 2.5 Mg/3 Ml Vial.Neb.) 2.5 mg INHALATION Q2H PRN PRN PRN Reason: WHEEZING Amiodarone HCl (Amiodarone 200 Mg Tablet) 200 mg PO BID [facility] Stop: 02/18/20 22:01 Last Admin: 02/09/20 07:46 Dose: 200 mg Documented by: Amiodarone HCl (Amiodarone 200 Mg Tablet) 200 mg PO DAILY [facility] Apixaban (Apixaban 5 Mg Tablet) 5 mg PO BID [facility] Last Admin: 02/09/20 07:47 Dose: 5 mg Documented by: Calamine/Phenol (Menthol/Lanolin/Calamine/Znox 113 Gm Tube) 1 applic TOPICAL BID [facility]; Protocol Last Admin: 02/09/20 07:46 Dose: 1 applicatio Documented by: Dextrose (Dextrose 50%-Water 25 Gm/50 Ml Disp.Syrin) 0 gm IV X1 PRN; Protocol PRN Reason: Hypoglycemia Furosemide (Furosemide 40 Mg Tablet) 40 mg PO DAILY [facility] Last Admin: 02/09/20 07:47 Dose: 40 mg Documented by: Glucagon (Glucagon 1 Mg/Ml Syringe) 1 mg IM .X1 PRN PRN Reason: Hypoglycemia Sodium Chloride () 250 mls @ 15 mls/hr IV .[id number] PRN PRN Reason: Saline Flush Last Infusion: 02/02/20 07:58 Dose: Infused Documented by: Sodium Chloride () 250 mls @ 15 mls/hr IV .[id number] PRN PRN Reason: Additional IVPB Infusion Insulin Human Lispro (Insulin Lispro 100 Unit/Ml Insuln.Pen) 0 unit SC ACHS [facility]; Protocol Last Admin: 02/09/20 11:04 Dose: 1 u Documented by: Metoprolol Tartrate (Metoprolol Tartrate 100 Mg Tablet) 100 mg PO BID [facility] Last Admin: 02/09/20 07:47 Dose: 100 mg Documented by: Ondansetron HCl (Ondansetron 4 Mg/2 Ml Vial) 4 mg IV Q8H PRN PRN PRN Reason: NAUSEA/VOMITING Pantoprazole Sodium (Pantoprazole Sodium 40 Mg Tablet) 40 mg PO BID [facility] Last Admin: 02/09/20 07:49 Dose: 40 mg Documented by: Paroxetine HCl (Paroxetine 20 Mg Tablet) 20 mg PO DAILY [facility] Last Admin: 02/09/20 07:55 Dose: 20 mg Documented by: Prednisone (Prednisone 5 Mg Tablet) 7.5 mg PO DAILY [facility] Last Admin: 02/09/20 07:48 Dose: 7.5 mg Documented by: Senna/Docusate Sodium (Senna/Docusate Sodium 1 Tablet) 2 tablet PO BID [facility] Last Admin: 02/09/20 07:49 Dose: 2 tablet Documented by: Sodium Chloride (0.9% Saline Lock 10 Ml Syringe) 10 - 40 ml IV UD PRN PRN Reason: SALINE FLUSH Last Admin: 02/05/20 21:41 Dose: 10 ml Documented by: Tacrolimus (Tacrolimus 0.5 Mg Capsule) 1 mg PO BID [facility] Last Admin: 02/09/20 07:50 Dose: 1 mg Documented by: Medical Necessity - Tobacco Use Smoking Status: Former smoker Tobacco Use: Non-smoker Assessment/Plan All Active Problems (Last Updated 07/22/19 @ 13:55 by Katheryn Mosqueda) TUCKER (acute kidney injury) (Acute) a fib with rvr (Acute) COVID-19 virus infection (Acute) Acute respiratory failure with hypoxia (Acute) 1. acute hypoxic respiratory failure * 2/2 COVID 19 pneumonia and ALI * wean oxygen as tolerated * continue diuresis 2. Acute COVID-19 pneumonia/ALI * Dx 01/01 * completed dexa and rem-d * DC isolation as has more than completed 21 days of isolation 3. TUCKER * improved * nephrology following, suspect ATN 4. new onset pAF * in NSR * on metoprolol and amiodarone * apixaban 5. DM2 * stable * on SSI 6. Chronic anemia * stable 7. s/p Renal Xplant * on tacrolimus + prednisone * no longer on mycophenolate 8. VTE prophylaxis: anticoagulated 9. Disposition: to [facility] pending approval Inpatient E&M: 02705 Subs Hosp L2
--- NOTE | 2020-02-09 13:34 | PCM.PN.REN ---
Patient Problems: Active and Suspected Problems (Last Updated 09/02/18 @ 13:55 by Katheryn Mosqueda) TUCKER (acute kidney injury) (Acute) a fib with rvr (Acute) COVID-19 virus infection (Acute) Acute respiratory failure with hypoxia (Acute) Subjective: no cp/sob no c/o Objective: PE deferred to preserve PPE and prevent further transmission of covid-19 - Physical Exam Vitals/I&O's: Vital Signs Temp Pulse Resp BP Pulse Ox 97.8 F 89 20 H 109/68 92 02/09/20 07:36 02/09/20 07:47 02/09/20 07:36 02/09/20 07:36 02/09/20 07:36 Oxygen Flow Rate (L/min) 6 Oxygen Delivery Method Nasal Cannula Weight: 67.3 kg Body Mass Index (BMI) 26.0 Intake and Output for Last 24 Hours 02/07/20 02/08/20 02/09/20 23:59 23:59 23:59 Intake Total 800 / 800 1290 / 1290 350 / 350 Output Total 2650 / 2650 1999 / 1999 500 / 500 Balance -1850 / -1850 -710 / -710 -150 / -150 Laboratory Results 02/08/20 17:03: POC Glucose 215 H 02/08/20 20:37: POC Glucose 145 H 02/09/20 04:54: WBC 13.3 H, RBC 3.66 L, Hgb 9.8 L, Hct 32.6 L, MCV 89.1, MCH 26.8 L, MCHC 30.1 L, RDW Std Deviation 45.7 H, RDW Coeff of Genaro 14.5, Plt Count 480 H, MPV 9.7, Immature Gran % (Auto) 2.600 H, Neut % (Auto) 67.3, Lymph % (Auto) 11.1 L, [place] % (Auto) 8.9, Eos % (Auto) 9.6 H, Baso % (Auto) 0.5, Absolute Neuts (auto) 8.9 H, Absolute Lymphs (auto) 1.48, Nucleated RBC % 0 02/09/20 04:54: Sodium 135 L, Potassium 3.6, Chloride 101, Carbon Dioxide 25.0, Anion Gap 9, BUN 50 H, Creatinine 1.70 H, Estim Creat Clear Calc 47.29, Est GFR (MDRD) Af Amer 54 L, Est GFR (MDRD) Non-Af 45 L, BUN/Creatinine Ratio 29.4 H, Glucose 89, Calcium 9.1, Total Bilirubin 0.40, AST 41 H, ALT 77 H, Alkaline Phosphatase 92, Total Protein 7.1, Albumin 1.9 L, Globulin 5.2 H, Albumin/Globulin Ratio 0.4 L 02/09/20 05:28: Tacrolimus Pending 02/09/20 06:16: POC Glucose 93 02/09/20 11:03: POC Glucose 152 H Current Medications Acetaminophen (Acetaminophen 325 Mg Tablet) 650 mg PO Q6H PRN PRN PRN Reason: Pain Score 1-10 Last Admin: 02/08/20 20:53 Dose: 650 mg Documented by: Albuterol Sulfate (Albuterol 2.5 Mg/3 Ml Vial.Neb.) 2.5 mg INHALATION Q2H PRN PRN PRN Reason: WHEEZING Amiodarone HCl (Amiodarone 200 Mg Tablet) 200 mg PO BID [facility] Stop: 02/18/20 22:01 Last Admin: 02/09/20 07:46 Dose: 200 mg Documented by: Amiodarone HCl (Amiodarone 200 Mg Tablet) 200 mg PO DAILY [facility] Apixaban (Apixaban 2.5 Mg Tablet) 2.5 mg PO BID [facility] Calamine/Phenol (Menthol/Lanolin/Calamine/Znox 113 Gm Tube) 1 applic TOPICAL BID [facility]; Protocol Last Admin: 02/09/20 07:46 Dose: 1 applicatio Documented by: Dextrose (Dextrose 50%-Water 25 Gm/50 Ml Disp.Syrin) 0 gm IV X1 PRN; Protocol PRN Reason: Hypoglycemia Furosemide (Furosemide 40 Mg Tablet) 40 mg PO DAILY [facility] Last Admin: 02/09/20 07:47 Dose: 40 mg Documented by: Glucagon (Glucagon 1 Mg/Ml Syringe) 1 mg IM .X1 PRN PRN Reason: Hypoglycemia Sodium Chloride () 250 mls @ 15 mls/hr IV .[id number] PRN PRN Reason: Saline Flush Last Infusion: 02/02/20 07:58 Dose: Infused Documented by: Sodium Chloride () 250 mls @ 15 mls/hr IV .[id number] PRN PRN Reason: Additional IVPB Infusion Insulin Human Lispro (Insulin Lispro 100 Unit/Ml Insuln.Pen) 0 unit SC ACHS [facility]; Protocol Last Admin: 02/09/20 11:04 Dose: 1 u Documented by: Metoprolol Tartrate (Metoprolol Tartrate 100 Mg Tablet) 100 mg PO BID [facility] Last Admin: 02/09/20 07:47 Dose: 100 mg Documented by: Ondansetron HCl (Ondansetron 4 Mg/2 Ml Vial) 4 mg IV Q8H PRN PRN PRN Reason: NAUSEA/VOMITING Pantoprazole Sodium (Pantoprazole Sodium 40 Mg Tablet) 40 mg PO BID [facility] Last Admin: 02/09/20 07:49 Dose: 40 mg Documented by: Paroxetine HCl (Paroxetine 20 Mg Tablet) 20 mg PO DAILY [facility] Last Admin: 02/09/20 07:55 Dose: 20 mg Documented by: Prednisone (Prednisone 5 Mg Tablet) 7.5 mg PO DAILY [facility] Last Admin: 02/09/20 07:48 Dose: 7.5 mg Documented by: Senna/Docusate Sodium (Senna/Docusate Sodium 1 Tablet) 2 tablet PO BID [facility] Last Admin: 02/09/20 07:49 Dose: 2 tablet Documented by: Sodium Chloride (0.9% Saline Lock 10 Ml Syringe) 10 - 40 ml IV UD PRN PRN Reason: SALINE FLUSH Last Admin: 02/05/20 21:41 Dose: 10 ml Documented by: Tacrolimus (Tacrolimus 0.5 Mg Capsule) 1 mg PO BID [facility] Last Admin: 02/09/20 07:50 Dose: 1 mg Documented by: Medical Necessity - Tobacco Use Smoking Status: Former smoker Tobacco Use: Non-smoker Assessment/Plan All Active Problems (Last Updated 09/02/18 @ 13:55 by Katheryn Mosqueda) TUCKER (acute kidney injury) (Acute) a fib with rvr (Acute) COVID-19 virus infection (Acute) Acute respiratory failure with hypoxia (Acute) ESRD s/p renal transplant TUCKER ATN with COVID-19 Hypernatremia resolved Hyperkalemia resolved COVID-19 Scr 1.7 stable avoid nephrotoxins Tac 6.4 back on Tac 1 mg po bid home dose. still off cellcept bp ok on BB d/w ID too
--- NOTE | 2020-02-09 15:57 | PN.ID_ITS ---
Patient Problems: Active and Suspected Problems (Last Updated 09/02/18 @ 13:55 by Katheryn Mosqueda) TUCKER (acute kidney injury) (Acute) a fib with rvr (Acute) COVID-19 virus infection (Acute) Acute respiratory failure with hypoxia (Acute) Subjective: Feeling better, no fever, no n/v/d. - Physical Exam Vitals/I&O's: Vital Signs Temp Pulse Resp BP Pulse Ox 97.8 F 89 20 H 109/68 92 02/09/20 07:36 02/09/20 07:47 02/09/20 07:36 02/09/20 07:36 02/09/20 07:36 Oxygen Flow Rate (L/min) 7 Oxygen Delivery Method Nasal Cannula Weight: 67.3 kg Body Mass Index (BMI) 26.0 Intake and Output for Last 24 Hours 02/07/20 02/08/20 02/09/20 23:59 23:59 23:59 Intake Total 800 / 800 1290 / 1290 350 / 350 Output Total 2650 / 2650 1999 / 1999 500 / 500 Balance -1850 / -1850 -710 / -710 -150 / -150 General: Alert, Cooperative, No apparent distress Lungs: Clear to auscultation, Diminished Cardiovascular: Regular rate, Regular Rhythm Abdomen: Soft, Non Tender, Non-Distended Skin: No rashes Laboratory Results 02/08/20 17:03: POC Glucose 215 H 02/08/20 20:37: POC Glucose 145 H 02/09/20 04:54: WBC 13.3 H, RBC 3.66 L, Hgb 9.8 L, Hct 32.6 L, MCV 89.1, MCH 26.8 L, MCHC 30.1 L, RDW Std Deviation 45.7 H, RDW Coeff of Genaro 14.5, Plt Count 480 H, MPV 9.7, Immature Gran % (Auto) 2.600 H, Neut % (Auto) 67.3, Lymph % (Auto) 11.1 L, [place] % (Auto) 8.9, Eos % (Auto) 9.6 H, Baso % (Auto) 0.5, Absolute Neuts (auto) 8.9 H, Absolute Lymphs (auto) 1.48, Nucleated RBC % 0 02/09/20 04:54: Sodium 135 L, Potassium 3.6, Chloride 101, Carbon Dioxide 25.0, Anion Gap 9, BUN 50 H, Creatinine 1.70 H, Estim Creat Clear Calc 47.29, Est GFR (MDRD) Af Amer 54 L, Est GFR (MDRD) Non-Af 45 L, BUN/Creatinine Ratio 29.4 H, Glucose 89, Calcium 9.1, Total Bilirubin 0.40, AST 41 H, ALT 77 H, Alkaline Phosphatase 92, Total Protein 7.1, Albumin 1.9 L, Globulin 5.2 H, Albumin/Globulin Ratio 0.4 L 02/09/20 05:28: Tacrolimus Pending 02/09/20 06:16: POC Glucose 93 02/09/20 11:03: POC Glucose 152 H Current Medications Acetaminophen (Acetaminophen 325 Mg Tablet) 650 mg PO Q6H PRN PRN PRN Reason: Pain Score 1-10 Last Admin: 02/08/20 20:53 Dose: 650 mg Documented by: Albuterol Sulfate (Albuterol 2.5 Mg/3 Ml Vial.Neb.) 2.5 mg INHALATION Q2H PRN PRN PRN Reason: WHEEZING Amiodarone HCl (Amiodarone 200 Mg Tablet) 200 mg PO BID [facility] Stop: 02/18/20 22:01 Last Admin: 02/09/20 07:46 Dose: 200 mg Documented by: Amiodarone HCl (Amiodarone 200 Mg Tablet) 200 mg PO DAILY [facility] Apixaban (Apixaban 2.5 Mg Tablet) 2.5 mg PO BID [facility] Calamine/Phenol (Menthol/Lanolin/Calamine/Znox 113 Gm Tube) 1 applic TOPICAL BID [facility]; Protocol Last Admin: 02/09/20 07:46 Dose: 1 applicatio Documented by: Dextrose (Dextrose 50%-Water 25 Gm/50 Ml Disp.Syrin) 0 gm IV X1 PRN; Protocol PRN Reason: Hypoglycemia Furosemide (Furosemide 40 Mg Tablet) 40 mg PO DAILY [facility] Last Admin: 02/09/20 07:47 Dose: 40 mg Documented by: Glucagon (Glucagon 1 Mg/Ml Syringe) 1 mg IM .X1 PRN PRN Reason: Hypoglycemia Sodium Chloride () 250 mls @ 15 mls/hr IV .[id number] PRN PRN Reason: Saline Flush Last Infusion: 02/02/20 07:58 Dose: Infused Documented by: Sodium Chloride () 250 mls @ 15 mls/hr IV .[id number] PRN PRN Reason: Additional IVPB Infusion Insulin Human Lispro (Insulin Lispro 100 Unit/Ml Insuln.Pen) 0 unit SC ACHS [facility]; Protocol Last Admin: 02/09/20 11:04 Dose: 1 u Documented by: Metoprolol Tartrate (Metoprolol Tartrate 100 Mg Tablet) 100 mg PO BID [facility] Last Admin: 02/09/20 07:47 Dose: 100 mg Documented by: Ondansetron HCl (Ondansetron 4 Mg/2 Ml Vial) 4 mg IV Q8H PRN PRN PRN Reason: NAUSEA/VOMITING Pantoprazole Sodium (Pantoprazole Sodium 40 Mg Tablet) 40 mg PO BID [facility] Last Admin: 02/09/20 07:49 Dose: 40 mg Documented by: Paroxetine HCl (Paroxetine 20 Mg Tablet) 20 mg PO DAILY [facility] Last Admin: 02/09/20 07:55 Dose: 20 mg Documented by: Prednisone (Prednisone 5 Mg Tablet) 7.5 mg PO DAILY [facility] Last Admin: 02/09/20 07:48 Dose: 7.5 mg Documented by: Senna/Docusate Sodium (Senna/Docusate Sodium 1 Tablet) 2 tablet PO BID [facility] Last Admin: 02/09/20 07:49 Dose: 2 tablet Documented by: Sodium Chloride (0.9% Saline Lock 10 Ml Syringe) 10 - 40 ml IV UD PRN PRN Reason: SALINE FLUSH Last Admin: 02/05/20 21:41 Dose: 10 ml Documented by: Tacrolimus (Tacrolimus 0.5 Mg Capsule) 1 mg PO BID [facility] Last Admin: 02/09/20 07:50 Dose: 1 mg Documented by: Medical Necessity - Tobacco Use Smoking Status: Former smoker Tobacco Use: Non-smoker Route of nutrition/ use of supplements: [] Nutritional Intake: [] IV Site: [] Fernando Catheter: [] - Assessment/Plan Antibiotics: [] Assessment/Plan: [] Active and Suspected Problems (Last Updated 09/02/18 @ 13:55 by Katheryn Mosqueda) COVID-19 virus infection (Acute) Acute respiratory failure with hypoxia (Acute) covid with hypoxia, resp failure, renal transplant - on therapeutic lovenox, completed 10 days of dex, and completed 5 doses of remdesivir 01/22. D-dimer was 4.2. Had O2 worsening after extubation with ongoing issues with afib, continued fever, rising wbc; so on 01/27 repeated cxs and 2 of 2 bcx with CoNS. Sputum with some yeast. Now afebrile, feeling better, O2 improved, out of icu. Completed vanc for CoNS bacteremia. Cr improved today. Given immunosuppressed state, would keep in isolation for now. Recent study of cancer pts on chemo in [facility] reported contagious virus up to and beyond 60 days. Could consider repeat pcr prior to discharge to [facility] to help gauge risk of continued spread. Will follow, d/w Dr. Ricci and nursing.
[2020-02-09 16:45] LABS: Bedside Glucose 133 mg/dL (70-110)
[2020-02-09] MEDS: APIXABAN 2.5 MG TABLET PO (20:25)
[2020-02-09 20:36] LABS: Bedside Glucose 231 mg/dL (70-110)
[2020-02-10] VITALS (12 sets, daily range): BP systolic 105–119; BP diastolic 66–77; PULSE 63–85; RESP 18–20; TEMP 36.1–37.1; O2SAT 94–96
--- NOTE | 2020-02-10 00:12 | CPS ---
Pt. refusing BiPAP at this time.
[2020-02-10 06:15] LABS: Bedside Glucose 102 mg/dL (70-110)
[2020-02-10 07:02] LABS: Absolute Lymphocyte Count 1.65 X10^3/uL (0.83-4.51); Absolute Neutrophil Count 7.8 X10^3/uL (2.0-7.7); Basophil# 0.07 X10^3/uL; Basophil% 0.6 % (0-1); Eosinophil# 1.23 X10^3/uL; Eosinophils% 9.8 % (0-5); Hematocrit 34.2 % (40-54); Hemoglobin 10.1 g/dL (13.0-16.5); Lymphocyte # 1.65 X10^3/ul (4.0); Lymphocyte % 13.1 % (19-41); Mean Corp Hgb Conc 29.5 g/dL (32-36); Mean Corpuscular Hgb 26.6 pg (27.0-32.0); Mean Corpuscular Volume 90.2 fL (80-94); Mean Platelet Vol. 9.7 fl (6.2-12.0); Monocyte# 1.38 X10^3/uL; NRBC Flagged by Analyzer 0 % (0-5); Neutrophil # 7.82 X10^3/uL (2.7-7.7); Neutrophil % 62.1 % (47-70); Platelet Count 485 K/mm3 (150-450); RBC Distribution Width CV 14.8 % (11.6-14.6); RBC Distribution Width SD 47.1 fl (35.1-43.9); Red Blood Count 3.79 M/mm3 (4.6-6.2); White Blood Count 12.6 K/mm3 (4.4-11.0)
[2020-02-10 07:33] LABS: Anion Gap 7 (5-15); BUN 44 mg/dL (7-18); BUN/Creat Ratio 26.8 RATIO (10-20); Calcium,Total 8.7 mg/dL (8.5-10.1); Chloride 103 mmol/L (98-107); Creatinine, Serum 1.64 mg/dL (0.70-1.30); EST Glomerular Filtration Rate 47 mL/min (>60); Est Glom Filt Rate - Afr Amer 56 mL/min (>60); Estimated Creatinine Clearance 49.82 ml/min; Glucose 89 mg/dL (74-106); Potassium 4.1 mmol/L (3.5-5.1); Sodium Level 137 mmol/L (136-145)
[2020-02-10] MEDS: APIXABAN 2.5 MG TABLET PO (07:41)
[2020-02-10] MEDS: Amiodarone 200 MG Tablet PO (07:41)
[2020-02-10] MEDS: Furosemide 40 MG Tablet PO ×2 (07:42→17:16)
[2020-02-10] MEDS: Pantoprazole Sodium 40 MG Tablet PO (07:43)
[2020-02-10] MEDS: Paroxetine 20 MG Tablet PO (07:43)
[2020-02-10] MEDS: Metoprolol Tartrate 100 MG Tablet PO (07:43)
[2020-02-10] MEDS: Tacrolimus 0.5 MG Capsule 1 MG PO (07:44)
[2020-02-10] MEDS: predniSONE 5 MG Tablet 7.5 MG PO (07:44)
[2020-02-10 11:21] LABS: Bedside Glucose 158 mg/dL (70-110)
[2020-02-10] MEDS: Insulin Lispro 100 UNIT/ML INSULN.PEN SC (11:29)
--- NOTE | 2020-02-10 11:55 | PCM.PN.REN ---
Patient Problems: Active and Suspected Problems (Last Updated 09/02/18 @ 13:55 by Katheryn Mosqueda) TUCKER (acute kidney injury) (Acute) a fib with rvr (Acute) COVID-19 virus infection (Acute) Acute respiratory failure with hypoxia (Acute) Subjective: no cp/sob no c/o - Physical Exam Vitals/I&O's: Vital Signs Temp Pulse Resp BP Pulse Ox 97.3 F L 76 18 105/66 94 02/10/20 11:20 02/10/20 11:20 02/10/20 11:20 02/10/20 11:20 02/10/20 11:20 Oxygen Flow Rate (L/min) 3 Oxygen Delivery Method Nasal Cannula Weight: 148.7 kg Body Mass Index (BMI) 26.0 Intake and Output for Last 24 Hours 02/08/20 02/09/20 02/10/20 23:59 23:59 23:59 Intake Total 1290 / 1290 650 / 650 480 / 480 Output Total 1999 / 1999 1050 / 1050 725 / 725 Balance -710 / -710 -400 / -400 -245 / -245 General: Alert, Cooperative HEENT: Atraumatic Oral: Moist Mucosa Neck: Supple, Trachea Midline Lungs: Clear to auscultation Cardiovascular: Normal S1, Normal S2 Abdomen: Bowel Sounds Present Laboratory Results 02/09/20 16:19: POC Glucose 133 H 02/09/20 17:25: COVID-19 (BEAU) Not Detected 02/09/20 20:14: POC Glucose 231 H 02/10/20 05:50: WBC 12.6 H, RBC 3.79 L, Hgb 10.1 L, Hct 34.2 L, MCV 90.2, MCH 26.6 L, MCHC 29.5 L, RDW Std Deviation 47.1 H, RDW Coeff of Genaro 14.8 H, Plt Count 485 H, MPV 9.7, Immature Gran % (Auto) 3.400 H, Neut % (Auto) 62.1, Lymph % (Auto) 13.1 L, [place] % (Auto) 11.0 H, Eos % (Auto) 9.8 H, Baso % (Auto) 0.6, Absolute Neuts (auto) 7.8 H, Absolute Lymphs (auto) 1.65, Nucleated RBC % 0 02/10/20 05:50: Sodium 137, Potassium 4.1, Chloride 103, Carbon Dioxide 27.0, Anion Gap 7, BUN 44 H, Creatinine 1.64 H, Estim Creat Clear Calc 49.82, Est GFR (MDRD) Af Amer 56 L, Est GFR (MDRD) Non-Af 47 L, BUN/Creatinine Ratio 26.8 H, Glucose 89, Calcium 8.7 02/10/20 06:08: POC Glucose 102 02/10/20 11:17: POC Glucose 158 H Current Medications Acetaminophen (Acetaminophen 325 Mg Tablet) 650 mg PO Q6H PRN PRN PRN Reason: Pain Score 1-10 Last Admin: 02/08/20 20:53 Dose: 650 mg Documented by: Albuterol Sulfate (Albuterol 2.5 Mg/3 Ml Vial.Neb.) 2.5 mg INHALATION Q2H PRN PRN PRN Reason: WHEEZING Amiodarone HCl (Amiodarone 200 Mg Tablet) 200 mg PO BID [facility] Stop: 02/18/20 22:01 Last Admin: 02/10/20 07:41 Dose: 200 mg Documented by: Amiodarone HCl (Amiodarone 200 Mg Tablet) 200 mg PO DAILY [facility] Apixaban (Apixaban 2.5 Mg Tablet) 2.5 mg PO BID [facility] Last Admin: 02/10/20 07:41 Dose: 2.5 mg Documented by: Calamine/Phenol (Menthol/Lanolin/Calamine/Znox 113 Gm Tube) 1 applic TOPICAL BID [facility]; Protocol Last Admin: 02/10/20 07:48 Dose: Not Given Documented by: Dextrose (Dextrose 50%-Water 25 Gm/50 Ml Disp.Syrin) 0 gm IV X1 PRN; Protocol PRN Reason: Hypoglycemia Furosemide (Furosemide 40 Mg Tablet) 40 mg PO BIDLX [facility] Glucagon (Glucagon 1 Mg/Ml Syringe) 1 mg IM .X1 PRN PRN Reason: Hypoglycemia Sodium Chloride () 250 mls @ 15 mls/hr IV .[id number] PRN PRN Reason: Saline Flush Last Infusion: 02/02/20 07:58 Dose: Infused Documented by: Sodium Chloride () 250 mls @ 15 mls/hr IV .[id number] PRN PRN Reason: Additional IVPB Infusion Insulin Human Lispro (Insulin Lispro 100 Unit/Ml Insuln.Pen) 0 unit SC ACHS [facility]; Protocol Last Admin: 02/10/20 11:29 Dose: 1 u Documented by: Metoprolol Tartrate (Metoprolol Tartrate 100 Mg Tablet) 100 mg PO BID [facility] Last Admin: 02/10/20 07:43 Dose: 100 mg Documented by: Ondansetron HCl (Ondansetron 4 Mg/2 Ml Vial) 4 mg IV Q8H PRN PRN PRN Reason: NAUSEA/VOMITING Pantoprazole Sodium (Pantoprazole Sodium 40 Mg Tablet) 40 mg PO BID [facility] Last Admin: 02/10/20 07:43 Dose: 40 mg Documented by: Paroxetine HCl (Paroxetine 20 Mg Tablet) 20 mg PO DAILY [facility] Last Admin: 02/10/20 07:43 Dose: 20 mg Documented by: Prednisone (Prednisone 5 Mg Tablet) 7.5 mg PO DAILY [facility] Last Admin: 02/10/20 07:44 Dose: 7.5 mg Documented by: Senna/Docusate Sodium (Senna/Docusate Sodium 1 Tablet) 2 tablet PO BID [facility] Last Admin: 02/10/20 07:46 Dose: Not Given Documented by: Sodium Chloride (0.9% Saline Lock 10 Ml Syringe) 10 - 40 ml IV UD PRN PRN Reason: SALINE FLUSH Last Admin: 02/05/20 21:41 Dose: 10 ml Documented by: Tacrolimus (Tacrolimus 0.5 Mg Capsule) 1 mg PO BID [facility] Last Admin: 02/10/20 07:44 Dose: 1 mg Documented by: Medical Necessity - Tobacco Use Smoking Status: Former smoker Tobacco Use: Non-smoker Assessment/Plan All Active Problems (Last Updated 09/02/18 @ 13:55 by Katheryn Mosqueda) TUCKER (acute kidney injury) (Acute) a fib with rvr (Acute) COVID-19 virus infection (Acute) Acute respiratory failure with hypoxia (Acute) ESRD s/p renal transplant TUCKER ATN with COVID-19 Hypernatremia resolved Hyperkalemia resolved COVID-19 Scr 1.6 stable avoid nephrotoxins Tac 6.4 back on Tac 1 mg po bid home dose. 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
[2020-02-10 13:32] LABS: Tacrolimus (FK506) 5.7 ng/mL (2.0-20.0)
--- NOTE | 2020-02-10 13:40 | PCM.TXEXTCAR ---
- Diet 02/06/20 11:17 ADA [Diet: Cardiac: Calorie-Controlled] Food consistency:: Mechanical (Minced/Moist) Liquid Consistency:: Regular/Thin Type of Dietary Supplement:: Is pt able to select menu?: No Diet Comments: distant supervision, meds ok w/ liquid chaser or purees; EP or MC w/ L&D How many daily calories?: 1800 calorie - Routine Orders/Code Status Routine Lab Work: CBC - every sunday, BMP - every sunday Code Status: Full Code - Wound(s) Scrotum Wound Type: Abrasion - Therapies Weight Bearing: Full weight bearing Physical Therapy: Eval and Treat Occupational Therapy: Eval and Treat - Allergies/Procedures Done in Hospital Allergies/Adverse Reactions: Allergies No Known Allergies Allergy (Verified 01/09/20 18:40) Procedures: Intubation - Type of Care/Length of Stay Estimated LOS: Convalescent Care Less Than 30 days Type of Care Needed: Skilled Rehab Potential: Fair Prognosis: Fair - Additional Orders/Day of Discharge H&P will serve as current which was dated: 01/18/20 Day of Discharge: 02/10/20 - Dietary and Speech Recommendations Dietitian Recommendations/Changes: Will continue to provide ensure pudding or magic cup w/ lunch and dinner for additional lucia/pro if consumed. - Follow Up Care Primary Care Physician: Jesus Collins MD [Primary Care Provider] - Within 2 Weeks Please Follow Up With: Naveed Houser MD
--- NOTE | 2020-02-10 13:43 | PCM.DC.SUM ---
Discharge Date and Diagnosis - Problem List Patient Problems: Active and Suspected Problems (Last Updated 09/02/18 @ 13:55 by Katheryn Mosqueda) TUCKER (acute kidney injury) (Acute) a fib with rvr (Acute) COVID-19 virus infection (Acute) Acute respiratory failure with hypoxia (Acute) Date of Admission: 01/18/20 Date of Discharge: 02/10/20 - Primary Discharge Diagnosis Acute Problems: Active Problems (Last Updated 09/02/18 @ 13:55 by Katheryn Mosqueda) 1. acute hypoxic respiratory failure improving 2/2 COVID 19 pneumonia and ALI wean oxygen as tolerated continue diuresis 2. Acute COVID-19 pneumonia/ALI Dx 01/01 completed dexa and rem-d repeat COVID 19 testing negative 02/08 DC isolation as has more than completed 21 days of isolation 3. TUCKER improved nephrology following, suspect ATN 4. new onset pAF in NSR on metoprolol and amiodarone apixaban 5. DM2 stable on SSI 6. Chronic anemia stable 7. s/p Renal Xplant on tacrolimus + prednisone no longer on mycophenolate - Secondary Discharge Diagnosis Chronic Problems: Chronic Problems (Last Updated 09/02/18 @ 13:55 by Katheryn Mosqueda) Essential (primary) hypertension (Chronic) History of renal transplant (Chronic 2005) 2005 for congenital defect Right bundle branch block (Chronic) Hyperlipidemia (Chronic) Hospital Course and Treatment Imaging Results: Clinical Impression(s) from Imaging Studies Chest X-Ray 01/18/20 17:00 IMPRESSION: 1. Extensive multilobar airspace disease suggesting pneumonia, including viral causes. Electronically Signed: Tyrone Borrero MD (Brooks) at 17:22 EST , Service support , Chest X-Ray 01/18/20 20:40 KUB X-Ray 01/23/20 00:01 IMPRESSION: 1. Appropriate positioning of supportive devices 2. Normal bowel gas pattern Electronically Signed: Jonathan Aguilar MD at 1:57 EST Tel , Service support , Chest X-Ray 01/26/20 12:09 IMPRESSION: Extensive bilateral airspace opacities increase in the right lung when compared to prior study. at 2329 Reported and signed by: Macrina Herrmann DO Electronically Signed: Macrina Herrmann DO at 23:28 EST Tel , Service support , Chest X-Ray 01/28/20 08:50 IMPRESSION: Minimal improvement in the diffuse bilateral airspace disease. The endotracheal tube and orogastric tube have been removed. Electronically Signed: Richard Cantorlive, at 9:30 EST , Service support , ID: Renetta Cardiology: Kalina CCM: Ilir Baird Nephrology: Ciaran Procedures: Intubation Summary of Care Provided: The patient is a 54 year old M presents with shortness of breath. Patient was diagnosed with COVID-19 on January 01. Patient was seen in the emergency room on 08 January and had bilateral infiltrates. Patient was discharged with antibiotics and metered-dose inhaler. It was recommended at that time for the patient to discontinue his mycophenolate. Patient was found to be hypoxic with a pulse ox of 45%. Patient was placed on BiPAP but was subsequently intubated in the emergency room. Patient had a very protracted hospitalization but did improve. His course was complicated by acute kidney injury which had a creatinine of 4.7. Patient was seen by nephrology but no renal replacement therapy was necessary. Creatinine today was at 1.64. Patient is overall doing well. Patient is very debilitated after his 23-day hospitalization. Patient will be discharged to [facility] in stable condition. Patient will still require oxygen. [] Patient Problems: Active and Suspected Problems (Last Updated 09/02/18 @ 13:55 by Katheryn Mosqueda) TUCKER (acute kidney injury) (Acute) a fib with rvr (Acute) COVID-19 virus infection (Acute) Acute respiratory failure with hypoxia (Acute) - Physical Exam Vitals/I&O's: Vital Signs Temp Pulse Resp BP Pulse Ox 36.3 C L 76 18 105/66 94 02/10/20 11:20 02/10/20 11:20 02/10/20 11:20 02/10/20 11:20 02/10/20 11:20 Oxygen Flow Rate (L/min) 3 Oxygen Delivery Method Nasal Cannula Weight: 148.7 kg Body Mass Index (BMI) 26.0 Intake and Output for Last 24 Hours 02/08/20 02/09/20 02/10/20 23:59 23:59 23:59 Intake Total 1290 / 1290 650 / 650 480 / 480 Output Total 1999 1050 / 1050 725 / 725 Balance -710 / -710 -400 / -400 -245 / -245 General: Alert, No apparent distress HEENT: Atraumatic, Normocephalic Oral: Moist Mucosa, No Gingival or Mucosal Lesions/ Ulcerations Neck: No Nodes, Thyroid Normal Size and Texture Lungs: Normal air movement, - - coarse breath sounds Cardiovascular: Regular rate, Regular Rhythm, Normal S1, Normal S2, No murmurs Abdomen: Bowel Sounds Present, Soft, Non Tender, Non-Distended, No Hepato-splenomegaly Extremities: No edema, No Calf Tenderness Psych/Mental Status: Normal Affect, Appropriate Laboratory Results 02/07/20 06:49: Tacrolimus 5.7 02/09/20 16:19: POC Glucose 133 H 02/09/20 17:25: COVID-19 (BEAU) Not Detected 02/09/20 20:14: POC Glucose 231 H 02/10/20 05:50: WBC 12.6 H, RBC 3.79 L, Hgb 10.1 L, Hct 34.2 L, MCV 90.2, MCH 26.6 L, MCHC 29.5 L, RDW Std Deviation 47.1 H, RDW Coeff of Genaro 14.8 H, Plt Count 485 H, MPV 9.7, Immature Gran % (Auto) 3.400 H, Neut % (Auto) 62.1, Lymph % (Auto) 13.1 L, Waller % (Auto) 11.0 H, Eos % (Auto) 9.8 H, Baso % (Auto) 0.6, Absolute Neuts (auto) 7.8 H, Absolute Lymphs (auto) 1.65, Nucleated RBC % 0 02/10/20 05:50: Sodium 137, Potassium 4.1, Chloride 103, Carbon Dioxide 27.0, Anion Gap 7, BUN 44 H, Creatinine 1.64 H, Estim Creat Clear Calc 49.82, Est GFR (MDRD) Af Amer 56 L, Est GFR (MDRD) Non-Af 47 L, BUN/Creatinine Ratio 26.8 H, Glucose 89, Calcium 8.7 02/10/20 06:08: POC Glucose 102 02/10/20 11:17: POC Glucose 158 H Current Medications Acetaminophen (Acetaminophen 325 Mg Tablet) 650 mg PO Q6H PRN PRN PRN Reason: Pain Score 1-10 Last Admin: 02/08/20 20:53 Dose: 650 mg Documented by: Albuterol Sulfate (Albuterol 2.5 Mg/3 Ml Vial.Neb.) 2.5 mg INHALATION Q2H PRN PRN PRN Reason: WHEEZING Amiodarone HCl (Amiodarone 200 Mg Tablet) 200 mg PO BID KEARA Stop: 02/18/20 22:01 Last Admin: 02/10/20 07:41 Dose: 200 mg Documented by: Amiodarone HCl (Amiodarone 200 Mg Tablet) 200 mg PO DAILY KEARA Apixaban (Apixaban 2.5 Mg Tablet) 2.5 mg PO BID KEARA Last Admin: 02/10/20 07:41 Dose: 2.5 mg Documented by: Calamine/Phenol (Menthol/Lanolin/Calamine/Znox 113 Gm Tube) 1 applic TOPICAL BID KEARA; Protocol Last Admin: 02/10/20 07:48 Dose: Not Given Documented by: Dextrose (Dextrose 50%-Water 25 Gm/50 Ml Disp.Syrin) 0 gm IV X1 PRN; Protocol PRN Reason: Hypoglycemia Furosemide (Furosemide 40 Mg Tablet) 40 mg PO BIDLX KEARA Glucagon (Glucagon 1 Mg/Ml Syringe) 1 mg IM .X1 PRN PRN Reason: Hypoglycemia Sodium Chloride () 250 mls @ 15 mls/hr IV .[id number] PRN PRN Reason: Saline Flush Last Infusion: 02/02/20 07:58 Dose: Infused Documented by: Sodium Chloride () 250 mls @ 15 mls/hr IV .[id number] PRN PRN Reason: Additional IVPB Infusion Insulin Human Lispro (Insulin Lispro 100 Unit/Ml Insuln.Pen) 0 unit SC ACHS [facility]; Protocol Last Admin: 02/10/20 11:29 Dose: 1 u Documented by: Metoprolol Tartrate (Metoprolol Tartrate 100 Mg Tablet) 100 mg PO BID [facility] Last Admin: 02/10/20 07:43 Dose: 100 mg Documented by: Ondansetron HCl (Ondansetron 4 Mg/2 Ml Vial) 4 mg IV Q8H PRN PRN PRN Reason: NAUSEA/VOMITING Pantoprazole Sodium (Pantoprazole Sodium 40 Mg Tablet) 40 mg PO BID [facility] Last Admin: 02/10/20 07:43 Dose: 40 mg Documented by: Paroxetine HCl (Paroxetine 20 Mg Tablet) 20 mg PO DAILY [facility] Last Admin: 02/10/20 07:43 Dose: 20 mg Documented by: Prednisone (Prednisone 5 Mg Tablet) 7.5 mg PO DAILY [facility] Last Admin: 02/10/20 07:44 Dose: 7.5 mg Documented by: Senna/Docusate Sodium (Senna/Docusate Sodium 1 Tablet) 2 tablet PO BID [facility] Last Admin: 02/10/20 07:46 Dose: Not Given Documented by: Sodium Chloride (0.9% Saline Lock 10 Ml Syringe) 10 - 40 ml IV UD PRN PRN Reason: SALINE FLUSH Last Admin: 02/05/20 21:41 Dose: 10 ml Documented by: Tacrolimus (Tacrolimus 0.5 Mg Capsule) 1 mg PO BID [facility] Last Admin: 02/10/20 07:44 Dose: 1 mg Documented by: Discharge Diet: No Restrictions Home Medications: Medications to take at Discharge Famotidine [Pepcid] 20 mg PO DAILY 11/19/12 aspirin 81 mg tablet,delayed release 81 mg PO DAILY tab 04/11/17 prednisone 5 mg tablet 7.5 mg PO QDAY 04/16/17 tacrolimus 0.5 mg capsule 0.5 mg PO .COMPLEX 04/16/17 Atorvastatin Calcium [Lipitor] 10 mg PO QHS 11/13/18 Cholecalciferol (Vitamin D3) [Vitamin D3] 2,000 unit PO DAILY 11/13/18 Sulfamethoxazole/Trimethoprim [Sulfamethoxazole-Tmp Ss Tablet] 1 tab PO DAILY 01/18/20 Amiodarone HCl [Cordarone] 200 mg PO BID tablet 02/10/20 Amiodarone HCl [Cordarone] 200 mg PO DAILY tablet 02/10/20 Apixaban [Eliquis] 2.5 mg PO BID tablet 02/10/20 Furosemide [Lasix] 40 mg PO DAILY tablet 02/10/20 Metoprolol Tartrate [Lopressor (beta aretha)] 100 mg PO BID tablet 02/10/20 Primary Care Physician: Jesus Collins MD [Primary Care Provider] - Within 2 Weeks Please Follow Up With: Naveed Houser MD Disposition: [facility] facility Minutes spent on discharge:: 32 Patient Condition:: Fair Medical Necessity - Tobacco Use Smoking Status: Former smoker Tobacco Use: Non-smoker Meaningful Use Info Meaningful Use Diagnoses (Choose all that apply): None applicable Inpatient E&M: [id number] [facility]
--- NOTE | 2020-02-10 16:52 | NURSING ---
Called report to Bria AMAYA at [facility]
[2020-02-10 17:11] LABS: Bedside Glucose 136 mg/dL (70-110)
[2020-02-11 13:06] LABS: Tacrolimus (FK506) 5.5 ng/mL (2.0-20.0)
== END 2020-02-10 21:45 | disposition skilled nursing facility (03) | DRG 207 ==
LOC: ED 17:30 → ICU 18:55 → MS2 01-31 18:55 → PCU 02-10 11:04
PROVIDERS: Family Medicine; Hospitalist; Internal Medicine; Internal Medicine Critical Care Medicine; Internal Medicine Infectious Disease; Internal Medicine Nephrology; Admitting Provider Internal Medicine; Emergency Provider Emergency Medicine; PCP Family Medicine
DX: U07.1 COVID-19 (principal); J96.01 Acute respiratory failure with hypoxia; J12.89 Other viral pneumonia; N17.0 Acute kidney failure with tubular necrosis; J15.9 Unspecified bacterial pneumonia; I24.8 Other forms of acute ischemic heart disease; T86.19 Other complication of kidney transplant; I48.92 Unspecified atrial flutter; D84.821 Immunodeficiency due to drugs; E87.0 Hyperosmolality and hypernatremia; Z16.39 Resistance to other specified antimicrobial drug; Z79.52 Long term (current) use of systemic steroids; Z79.899 Other long term (current) drug therapy; Z87.891 Personal history of nicotine dependence; E78.5 Hyperlipidemia, unspecified; I12.9 Hypertensive chronic kidney disease with stage 1 through stage 4 chronic kidney disease, or unspecified chronic kidney disease; N18.30 Chronic kidney disease, stage 3 unspecified; I48.0 Paroxysmal atrial fibrillation; E87.5 Hyperkalemia; B95.7 Other staphylococcus as the cause of diseases classified elsewhere; F32.9 Major depressive disorder, single episode, unspecified; F41.9 Anxiety disorder, unspecified; E11.22 Type 2 diabetes mellitus with diabetic chronic kidney disease; K21.9 Gastro-esophageal reflux disease without esophagitis; D64.9 Anemia, unspecified; T45.1X5A Adverse effect of antineoplastic and immunosuppressive drugs, initial encounter; R53.81 Other malaise
CPT/HCPCS: 31500; 31720; 36415; 36600; 71045; 74018; 80048; 80053; 80197; 80202; 82803; 82962; 83036; 83605; 83735; 84100; 84132; 84145; 84484; 85025; 85027; 85379; 85610; 85730; 86704; 87040; 87070; 87149; 87186; 87205; 87340; 87635; 90937; 92507; 92526; 92610; 93005; 94002; 94003; 94640; 94660; 97110; 97116; 97162; 97166; 97530; 97535; 97802; 97803; 99251; 99285; J2185; J7030; J7040; J7050; A4216; G0257; G0463; J0153; J0610; J1940; J3010; U0002

== ENCOUNTER 2020-02-11 11:56 | Emergency (ER) | payer MEDICARE, MEDICAID, SELFPAY ==
[2020-01-19 08:09] VITALS: BMI 26.0
[2020-02-11 11:57] VITALS: BP 134/75; PULSE 88; RESP 28; TEMP 37.1; O2SAT 97; BMI 25.6
--- NOTE | 2020-02-11 12:07 | EKG12_ITS ---
Test Reason : SOB Blood Pressure : / mmHG Vent. Rate : 088 BPM Atrial Rate : 088 BPM P-R Int : 150 ms QRS Dur : 130 ms QT Int : 398 ms P-R-T Axes : 036 008 142 degrees QTc Int : 481 ms Normal sinus rhythm Right bundle branch block Left ventricular hypertrophy with repolarization abnormality Abnormal ECG Confirmed by ASH DAVILA, CATALINO ([id number]), assignment desk editor NEAL WOMACK ([id number]) on 02/16/2020 9:32:24 AM Referred By: ALVIN Confirmed By:CARMEN ALEMAN MD
--- NOTE | 2020-02-11 12:12 | ED.VISSUMM ---
- ER Visit Summary Date of Service: 02/11/20 Chief Complaint: Shortness of breath History of Present Illness: The patient is a 54 M who presents with shortness of breath. Is been ongoing for 4 days. The patient was admitted to the hospital for greater than 3 weeks for coronavirus. He was intubated. He was subsequently extubated and placed on nasal cannula oxygen. He is currently in a retirement receiving oxygen therapy. His respiratory rate increased today and he is more short of breath so they called EMS. He denies any fevers or cough. No chest pain. He does have a lot of sinus congestion. He does have a history of a kidney transplant. Physical Examination: Vital signs reviewed. His pulse oximetry here is 94% on 2 L nasal cannula. HEENT exam does show sinus congestion bilaterally. Throat is nonerythematous. Heart is regular rate and rhythm without murmurs. Lungs have rhonchorous breath sounds bilaterally. Abdomen is soft and nontender. Extremities reveal no edema. Skin exam normal. Neurologic exam normal. Test Results: White blood cell count 11.8, hemoglobin 10.7. Platelets are 510. His creatinine is 1.88 which is near his current baseline. Troponin is 0.056 which is trending downward. Chest x-ray shows stable groundglass opacities consistent with his coronavirus diagnosis. Emergency Department Course and Treatment: Upon arrival patient was tachypneic but he appeared anxious. With coaching he slowed his breathing down to about 20 times a minute. His pulse ox was 95% on 2 L. His laboratory studies are near baseline. His chest x-ray is stable. Troponin is trending downward. When I reevaluated him his respiratory rate was still in the low 20s. He was on 2-1/2 L of oxygen with oxygen saturations around 93%. I feel his symptoms are exacerbated by some sinus congestion. I spoke with the nurse practitioner, Alisha Peacock, at his retirement. I feel that he is stable to return. She is going to call the retirement to order some nasal sprays to help with his breathing. He does have a as needed oxygen order at the retirement and he can go up to 5 L of oxygen as needed. Treatment Plan: [] Disposition: Discharged to retirement Impression: Nasal Congestion, COVID-19 This note was generated with [employer] software. It may contain incorrect words, spelling, and punctuation that were not noted in review of the chart prior to signing ED Disposition - Plan for ED Patient: Disposition: Home or Assisted Living Instructions: Coronavirus Disease 2019 (COVID-19): Caring for Yourself or Others Referrals: Jesus Collins MD [Primary Care Provider] -
[2020-02-11 12:19] LABS: Absolute Lymphocyte Count 1.81 X10^3/uL (0.83-4.51); Absolute Neutrophil Count 7.1 X10^3/uL (2.0-7.7); Basophil# 0.09 X10^3/uL; Basophil% 0.8 % (0-1); Eosinophil# 1.08 X10^3/uL; Eosinophils% 9.2 % (0-5); Hematocrit 36.7 % (40-54); Hemoglobin 10.7 g/dL (13.0-16.5); Lymphocyte # 1.81 X10^3/ul (4.0); Lymphocyte % 15.4 % (19-41); Mean Corp Hgb Conc 29.2 g/dL (32-36); Mean Corpuscular Hgb 26.7 pg (27.0-32.0); Mean Corpuscular Volume 91.5 fL (80-94); Monocyte# 1.29 X10^3/uL; NRBC Flagged by Analyzer 0 % (0-5); Neutrophil # 7.14 X10^3/uL (2.7-7.7); Neutrophil % 60.6 % (47-70); Platelet Count 510 K/mm3 (150-450); RBC Distribution Width CV 14.7 % (11.6-14.6); RBC Distribution Width SD 48.8 fl (35.1-43.9); Red Blood Count 4.01 M/mm3 (4.6-6.2); White Blood Count 11.8 K/mm3 (4.4-11.0)
--- NOTE | 2020-02-11 12:27 | RAD_ITS ---
STUDY: X-RAY CHEST REASON FOR EXAM: Male, 54 years old. SOB, pt congested was discharged from here yesterday, pt was intubated with covid 1.5 weeks ago, -- per shelter pulse ox low TECHNIQUE: Single AP portable view of the chest. COMPARISON: 01/28/2020 FINDINGS: Diffuse extensive groundglass opacities are seen more prominent in the lung bases , consistent with atypical pneumonia or viral pneumonia (COVID-19 ?). There is no demonstrated pleural abnormality. Normal size heart. Normal mediastinum and yessi. Normal visualized pulmonary arteries. Normal visualized aortic arch and descending thoracic aorta. Normal visualized thoracic spine. Normal visualized ribs, clavicles, and shoulders. There is no demonstrated abnormality of the visualized soft tissue structures of the upper abdomen. RAD/Chest 1 View (Portable) IMPRESSION: Stable diffuse extensive groundglass opacities are seen more prominent in the lung bases , consistent with atypical pneumonia or viral pneumonia (COVID-19 ?). Electronically Signed: Argelia Sutton, at 12:58 EST Tel , Service support ,
[2020-02-11 12:38] LABS: Anion Gap 4 (5-15); BUN 38 mg/dL (7-18); BUN/Creat Ratio 20.2 RATIO (10-20); Calcium,Total 9.6 mg/dL (8.5-10.1); Chloride 104 mmol/L (98-107); Creatinine, Serum 1.88 mg/dL (0.70-1.30); EST Glomerular Filtration Rate 40 mL/min (>60); Est Glom Filt Rate - Afr Amer 48 mL/min (>60); Estimated Creatinine Clearance 39.07 ml/min; Glucose 96 mg/dL (74-106); Potassium 4.4 mmol/L (3.5-5.1); Sodium Level 140 mmol/L (136-145)
[2020-02-11 13:30] VITALS: BP 121/78; PULSE 93; RESP 28; O2SAT 93; O2SAT 94
== END 2020-02-11 13:56 | disposition home or self-care (01) ==
PROVIDERS: Emergency Provider Emergency Medicine; PCP Family Medicine
DX: R09.81 Nasal congestion (principal); U07.1 COVID-19; Z94.0 Kidney transplant status
CPT/HCPCS: 71045; 80048; 84484; 85025; 93005; 99285; A4216

== ENCOUNTER 2020-02-11 23:05 | Emergency (ER) | payer MEDICARE, MEDICAID, SELFPAY ==
[2020-02-11 11:57] VITALS: BMI 25.6
[2020-02-11 23:06] VITALS: BP 161/95; PULSE 120; RESP 28; TEMP 36.5; O2SAT 89; BMI 24.3
[2020-02-11 23:09] VITALS: BP 161/95; PULSE 122; RESP 32; TEMP 36.5; O2SAT 89
[2020-02-11 23:16] VITALS: O2SAT 87
--- NOTE | 2020-02-11 23:38 | EKG12_ITS ---
Test Reason : SOB Blood Pressure : / mmHG Vent. Rate : 114 BPM Atrial Rate : 114 BPM P-R Int : 142 ms QRS Dur : 124 ms QT Int : 366 ms P-R-T Axes : 034 011 035 degrees QTc Int : 504 ms Sinus tachycardia Possible Left atrial enlargement Right bundle branch block Left ventricular hypertrophy with repolarization abnormality Marked ST abnormality, possible septal subendocardial injury Abnormal ECG Confirmed by ASH DAVILA, CATALINO ([id number]), desk editor NEAL WOMACK ([id number]) on 02/16/2020 9:32:35 AM Referred By: MIKE Confirmed By:CARMEN ALEMAN MD
--- NOTE | 2020-02-11 23:38 | RAD_ITS ---
STUDY: X-RAY CHEST REASON FOR EXAM: Male, 54 years old. increased sob TECHNIQUE: Single AP portable view of the chest. COMPARISON: 02/11/2020. FINDINGS: The lungs are underexpanded with bilateral coarse airspace opacities consistent with pneumonia, stable. There is no demonstrated pleural abnormality. Normal size heart. Normal mediastinum and yessi. Normal visualized pulmonary arteries. There is atherosclerotic calcification of the aortic arch with tortuosity. There is demineralization of the osseous structures. There is degenerative osteoarthritis of the bilateral shoulders. There is no demonstrated abnormality of the visualized soft tissue structures of the upper abdomen. RAD/Chest 1 View (Portable) IMPRESSION: Bilateral diffuse infiltrates, stable. Electronically Signed: Chetna Quinn MD at 0:24 EST , Service support ,
--- NOTE | 2020-02-11 23:39 | ED.DCSUM_ITS ---
History of Present Illness Chief Complaint: Shortness of Breath Narrative: 54-year-old male presenting for second time today. He states he is a little short of breath and he has anxiety. He was previously hospitalized with Covid?19 pneumonia. He was previously intubated after a trial of BiPAP. He had an extended stay due to respiratory difficulties in the hospital. He was discharged to a half-way facility yesterday. He states that he has not saved all of his medications since he has been there but he does not know much medications he is received or has not received. He does not have a medicine list. Patient states that he is not having chest pain. He states he has not had a return of fever or chills. - Past Medical History (1) Acute respiratory failure with hypoxia Status: Chronic (2) COVID-19 virus infection Status: Chronic (3) a fib with rvr Status: Chronic (4) Essential (primary) hypertension Status: Chronic (5) History of renal transplant Status: Chronic Comment: 2005 for congenital defect (6) Hyperlipidemia Status: Chronic Past Medical History - Allergies and Home Meds Allergies/Adverse Reactions: Allergies No Known Allergies Allergy (Verified 02/11/20 23:05) Primary Care Physician: Jesus Collins MD [STAFF PHYSICIAN] - Prior records reviewed: Yes Past Medical History: - - Reviewed in problem list. Surgical History: noncontributory, - - renal x-plant, fistula, bilateral shoulder surgery Lives: [facility] Smoking Status: Former smoker Alcohol: None Drugs: None - Family History Maternal Family History: Family History (Last Reviewed 06/01/17 @ 09:[address] Mundo Balderrama MD) Mother History of kidney disease Family History: Reports: No pertinent history Paternal Family History: Family History (Last Reviewed 06/01/17 @ 09:[address] Mudno Balderrama MD) Mother History of kidney disease Family History: Reports: No pertinent history Review of Systems General: Reports: Malaise. Denies: Chills, Fever Eyes: Denies: Visual changes - bilaterally, Diplopia ENT: Denies: Rhinorrhea, Sore throat Cardiovascular: Reports: Palpitations, Heart racing. Denies: Chest pain Respiratory: Reports: Dyspnea, Cough Gastrointestinal: Denies: Abdominal pain, Nausea Genitourinary: Denies: Dysuria, Hematuria, Frequency Musculoskeletal: Denies: Arthralgias, Neck pain Skin: Denies: Rash, Abscess Neurological: Denies: Headache, Parasthesia Psych: Denies: Depression, Anxiety Physical Exam Vital Signs/Narrative: Vital Signs Temp Pulse Resp BP Pulse Ox 02/11/20 23:09 97.7 F L 122 H 32 H 161/95 H 89 02/11/20 23:06 97.7 F L 120 H 28 H 161/95 H 89 Inital Vital Signs reviewed: Yes General: Well nourished, No Acute Distress Head: Normocephalic, Atraumatic Eyes: Perrl, EOMI Cardiovascular: Regular rhythm, Tachycardia Respiratory: No distress, Decreased Air Movement, - - Tachypneic. No accessory muscle use. Extremities: Nontender, No edema Skin: Normal color, No rash. Negative for: Cyanosis, Diaphoresis Neurological: Alert, Oriented x3, Cranial nerves II-XII grossly intact Psychological: Normal affect, Normal Mood Diagnostic/Tx/Re-eval - Rhythm Strip Rhythm Strip: Sinus Rhythm Rate: 114 - EKG Follow-up EKG Interpretation: Sinus Tachycardia, RBBB, Non-Specific ST Changes - Medical Decision Making 54-year-old male presenting for the second time today. The patient himself is a very poor informant. He does not know his medications nor does he know what is missing. He reports having anxiety but no anxiety medication. He states he has not seen a physician yet at his new half-way facility. On arrival patient had EKG interpreted by self.Which showed a sinus tachycardia at 114 bpm with right bundle branch block which is not significantly changed from his previous EKG from this afternoon. Chest x-ray interpreted by myself and the radiologist has not significantly changed. His troponin was slightly more elevated at 0.082. Lactic acid is 2.3. He has a leukocytosis of 13.5 which is slightly more elevated than today which was just over 11. Patient's oxygen was able to be weaned down to 4 L and maintaining normal sats. His heart rate is normalized. His blood pressure is normal. This is without intervention. I discussed the case with the hospitalist due to the change in labs and was informed that the patient was discharged needing as much is 8 L of oxygen at times. When I discussed this with the patient he does not do anything with his oxygen he states the half-way does all of his oxygen. He does not know where he supposed to be out as far as getting 2 to 8 L of oxygen. Since he had a concern of not getting his medications at the half-way facility we did call the nursing facility and they stated that he got all of his meds that were ordered with exception of his Ativan which was not delivered yet in addition to his tacrolimus which is not a standard drug that they have an order but is now arrived. Since the patient has been at the hospital today and this evening this is likely why he is not received his medications. I counseled him that when he ambulates he probably needs to turn up his oxygen to more than 4 l but it appears that for l is adequate for him in bed. Patient was counseled that his changing lab work is likely due to demand given his oxygen is not adjusted appropriately. His creatinine is elevated over what it was in the hospital. I attempted to give him IV fluids however he had already requested that the IV be out. He was counseled that he needed to drink water more liberally. He is currently not having any chest pain or shortness of breath. He was counseled that he will get his anxiety medicine when he returns to his facility. He did ask if he could just go home, however after discussion I feel like his medical care is too difficult for his parents to have to take care of him. He stated that he will go back to the half-way facility until he improves. Patient is stable for discharge at this time. Impression: 1. Indeterminate troponin likely due to demand 2. Leukocytosis 3. Hypoxia resolved 4. History of Covid?19 pneumonia 5. Dehydration ED Disposition - Plan for ED Patient: Disposition: Home or Assisted Living Instructions: Coronavirus Disease 2019 (COVID-19): Overview, Using Oxygen Safely, ED Anxiety Reaction, Kidney Disease: Understanding Fluids Referrals: Jesus Collins MD [STAFF PHYSICIAN] -
[2020-02-11 23:41] VITALS: BP 111/70; PULSE 120; RESP 36; O2SAT 97
[2020-02-11 23:44] LABS: Absolute Lymphocyte Count 1.87 X10^3/uL (0.83-4.51); Absolute Neutrophil Count 8.6 X10^3/uL (2.0-7.7); Basophil# 0.11 X10^3/uL; Basophil% 0.8 % (0-1); Eosinophil# 0.93 X10^3/uL; Eosinophils% 6.9 % (0-5); Hematocrit 33.9 % (40-54); Lymphocyte # 1.87 X10^3/ul (4.0); Lymphocyte % 13.9 % (19-41); Mean Corp Hgb Conc 29.5 g/dL (32-36); Mean Corpuscular Volume 91.4 fL (80-94); Mean Platelet Vol. 9.4 fl (6.2-12.0); Monocyte# 1.54 X10^3/uL; Monocyte% 11.4 % (0-10); NRBC Flagged by Analyzer 0 % (0-5); Neutrophil # 8.56 X10^3/uL (2.7-7.7); Neutrophil % 63.5 % (47-70); POSITIVE DIFFERENTIAL YES; Platelet Count 443 K/mm3 (150-450); RBC Distribution Width SD 48.4 fl (35.1-43.9); Red Blood Count 3.71 M/mm3 (4.6-6.2); White Blood Count 13.5 K/mm3 (4.4-11.0)
[2020-02-11 23:45] LABS: Differential Indicated SCAN CRITERIA MET
[2020-02-11 23:57] VITALS: BP 109/77; PULSE 102; RESP 32; O2SAT 96
[2020-02-11 23:57] LABS: Bacteria 0 SEEN /hpf (None Seen); Mucous, Urine 0 SEEN /hpf (<or=2+); Red Blood Cells-Urine 0 SEEN /hpf (0-5); Squamous Epithelial Cells - UA 0 SEEN /hpf (0-5)
[2020-02-11 23:58] LABS: Color, Urine Yellow (Yellow); Glucose, Dipstick Normal (Normal); Ketone-Dipstick Negative (Negative); Leukocyte Esterase-Dipstick 25 /ul (Negative); Nitrite-Dipstick Negative (Negative); Occult Blood-Urine Negative /ul (Negative); Protein-Dipstick 100 mg/dl (Negative); Specific Gravity, Urine 1.015 (1.002-1.030); Urine Bilirubin Dipstick Negative (Negative); Urine Clarity Clear (Clear); Urine Urobilinogen Normal (Normal)
[2020-02-11 23:58] LABS: ALB/GLOB Ratio 0.4 RATIO (0.9-2.4); AST(SGOT) 67 U/L (15-37); Alanine Aminotransfer ALT/SGPT 100 U/L (16-61); Alkaline Phosphatase 96 U/L (45-117); Anion Gap 5 (5-15); BUN 41 mg/dL (7-18); BUN/Creat Ratio 20.1 RATIO (10-20); Calcium,Total 8.8 mg/dL (8.5-10.1); Chloride 105 mmol/L (98-107); Creatinine, Serum 2.04 mg/dL (0.70-1.30); EST Glomerular Filtration Rate 36 mL/min (>60); Est Glom Filt Rate - Afr Amer 44 mL/min (>60); Glucose 174 mg/dL (74-106); Potassium 4.2 mmol/L (3.5-5.1); Sodium Level 137 mmol/L (136-145)
[2020-02-12 00:02] VITALS: BP 102/74; PULSE 99; RESP 22; O2SAT 96
[2020-02-12 00:03] LABS: Procalcitonin 0.28 ng/mL (0.00-0.09)
[2020-02-12 00:04] LABS: Lactic Acid 2.3 mmol/L (0.4-1.9)
[2020-02-12 00:10] LABS: White Blood Cells 0-5 SEEN /hpf (0-5)
[2020-02-12 00:14] LABS: Prothrombin Time (Protime)PT. 14.9 SECONDS (11.7-14.9)
[2020-02-12 00:15] LABS: International Normalized Ratio 1.2; Partial Thromboplast Time 36.3 Seconds (24.1-36.2)
[2020-02-12 01:24] VITALS: BP 110/75; PULSE 84; RESP 19; TEMP 36.7; O2SAT 96
--- NOTE | 2020-02-12 01:50 | ED.RN ---
THIS RN SPOKE TO LADONNA AMAYA AT [facility]. LADONNA STATES PT IS GETTING ALL HIS MEDICATIONS BESIDES HIS PROGRAF WHICH IS PENDING FROM PHARMACY. REPORT GIVEN TO LADONNA FOR PT RETURN TRANSFER TO FACILITY
[2020-02-12 02:25] VITALS: BP 105/57; PULSE 90; RESP 22; O2SAT 96
[2020-02-12 03:41] LABS: Reflex Lactate? Y
[2020-02-12 12:19] LABS: Pathologist Review Reviewed
== END 2020-02-12 02:54 | disposition home or self-care (01) ==
PROVIDERS: Emergency Provider Student in an Organized Health Care Education/Training Program; PCP Family Medicine
DX: E86.0 Dehydration (principal); R09.02 Hypoxemia; D72.829 Elevated white blood cell count, unspecified; R79.89 Other specified abnormal findings of blood chemistry; Z86.19 Personal history of other infectious and parasitic diseases; I10 Essential (primary) hypertension; E78.5 Hyperlipidemia, unspecified; Z94.0 Kidney transplant status; Z87.891 Personal history of nicotine dependence; Z79.899 Other long term (current) drug therapy
CPT/HCPCS: 36415; 71045; 80053; 81001; 83605; 84145; 84484; 85025; 85610; 85730; 87040; 87086; 87088; 93005; 96360; 99285; J7040; A4216

== ENCOUNTER 2020-02-12 12:57 | Inpatient (IN) | payer MEDICARE, MEDICAID, SELFPAY ==
[2020-02-11 23:06] VITALS: BMI 24.3
[2020-02-12] VITALS (22 sets, daily range): BP systolic 95–144; BP diastolic 70–93; PULSE 82–104; RESP 12–36; TEMP 36.7–37; O2SAT 80–100; BMI 26.1; BMI 25.7
--- NOTE | 2020-02-12 13:12 | EKG12_ITS ---
Test Reason : SOB Blood Pressure : / mmHG Vent. Rate : 084 BPM Atrial Rate : 084 BPM P-R Int : 142 ms QRS Dur : 128 ms QT Int : 398 ms P-R-T Axes : 037 009 134 degrees QTc Int : 470 ms Normal sinus rhythm Right bundle branch block Possible Inferior infarct , age undetermined T wave abnormality, consider lateral ischemia Abnormal ECG Confirmed by RA DAVILA, BLANCHE ([id number]), production editor NEAL WOMACK ([id number]) on 02/16/2020 9:03:00 AM Referred By: LUCA Confirmed By:BLANCHE KNAPP MD
--- NOTE | 2020-02-12 13:26 | RAD_ITS ---
STUDY: X-RAY CHEST REASON FOR EXAM: Male, 54 years old. PT COVID+. SENT FROM [facility] FOR INCREASED SOB AND HYPOXIA. THIRD TIME HERE FOR SAME IN 12 HOURS. RECEIVED 2 DOSES OF ATIVAN AT [facility] LAST AT 1200 TECHNIQUE: Single AP portable view of the chest. COMPARISON: 02/11/2020 FINDINGS: Increased alveolar density in both lungs consistent with worsening bilateral pneumonia, pulmonary edema, or ARDS. There is no demonstrated pleural abnormality. There is moderate cardiac enlargement. Normal mediastinum and yessi. Normal visualized pulmonary arteries. Normal visualized aortic arch and descending thoracic aorta. There is a dextroscoliosis of the thoracic spine. Normal visualized ribs, clavicles, and shoulders. There is no demonstrated abnormality of the visualized soft tissue structures of the upper abdomen. RAD/Chest 1 View (Portable) IMPRESSION: Worsening bilateral pneumonia, pulmonary edema, or ARDS. Electronically Signed: Bert Kuhn MD at 13:57 EST Tel , Service support ,
[2020-02-12 13:28] LABS: Absolute Lymphocyte Count 1.14 X10^3/uL (0.83-4.51); Absolute Neutrophil Count 10.8 X10^3/uL (2.0-7.7); Basophil# 0.09 X10^3/uL; Basophil% 0.6 % (0-1); Eosinophil# 0.83 X10^3/uL; Eosinophils% 5.5 % (0-5); Hematocrit 33.8 % (40-54); Lymphocyte # 1.14 X10^3/ul (4.0); Lymphocyte % 7.6 % (19-41); Mean Corp Hgb Conc 29.6 g/dL (32-36); Mean Corpuscular Hgb 27.2 pg (27.0-32.0); Mean Corpuscular Volume 91.8 fL (80-94); Mean Platelet Vol. 9.2 fl (6.2-12.0); Monocyte# 1.58 X10^3/uL; Monocyte% 10.5 % (0-10); NRBC Flagged by Analyzer 0.1 % (0-5); Neutrophil # 10.77 X10^3/uL (2.7-7.7); POSITIVE DIFFERENTIAL YES; Platelet Count 438 K/mm3 (150-450); RBC Distribution Width CV 14.8 % (11.6-14.6); RBC Distribution Width SD 49.2 fl (35.1-43.9); Red Blood Count 3.68 M/mm3 (4.6-6.2)
[2020-02-12 13:42] LABS: Differential Indicated SCAN CRITERIA MET
[2020-02-12 13:48] LABS: Lactic Acid 1.9 mmol/L (0.4-1.9)
[2020-02-12 13:49] LABS: Anion Gap 5 (5-15); BUN 31 mg/dL (7-18); BUN/Creat Ratio 20.1 RATIO (10-20); Calcium,Total 9.2 mg/dL (8.5-10.1); Chloride 104 mmol/L (98-107); Creatinine, Serum 1.54 mg/dL (0.70-1.30); EST Glomerular Filtration Rate 50 mL/min (>60); Est Glom Filt Rate - Afr Amer 61 mL/min (>60); Glucose 108 mg/dL (74-106); Potassium 4.2 mmol/L (3.5-5.1); Sodium Level 138 mmol/L (136-145)
[2020-02-12 13:55] LABS: Differential Comment SCANNED
--- NOTE | 2020-02-12 14:03 | ED.RN ---
I CAN'T WALK. REFUSED TO ATTEMPT TO AMBULATE WITH PULSE OX.
--- NOTE | 2020-02-12 14:11 | NURSING ---
DR LUCÍA SEGOVIA
--- NOTE | 2020-02-12 14:13 | CT_ITS ---
STUDY: CT CHEST WITHOUT CONTRAST REASON FOR EXAM: Male, 54 years old. + COVID, SOB, HYPOXIA. RADIATION DOSAGE (If Supplied By Facility): CTDIvol = ( 10.09 ) mGy, DLP = ( 322.59 ) mGycm TECHNIQUE: Transaxial imaging was performed without the administration of intravenous contrast material. Individualized dose optimization techniques were used for this CT. COMPARISON: Chest x-ray earlier today FINDINGS: Extensive bilateral alveolar densities consistent with the bilateral pneumonia, pulmonary edema, or ARDS. There is no demonstrated pleural abnormality. There is moderate cardiac enlargement. There are calcifications of the coronary arteries. Normal mediastinum. Normal hilar regions. Normal unenhanced pulmonary arteries. Normal aorta arch and descending thoracic aorta. Dextroscoliosis of the thoracic spine. There is no demonstrated abnormality of the visualized upper abdomen. CT/Chest without Contrast IMPRESSION: Bilateral pneumonia, pulmonary edema, or ARDS. Electronically Signed: Bert Kuhn MD at 15:03 EST Tel , Service support ,
--- NOTE | 2020-02-12 14:18 | ED.DCSUM_ITS ---
- ER Visit Summary Date of Service: 02/12/20 Chief Complaint: Shortness of breath History of Present Illness: The patient is a [address] Morrison. Patient was admitted to the hospital from January 17 to February 09 with Covid. He was intubated. His stay was complicated by atrial fibrillation with RVR. He also has a renal transplant. Patient reports that he was [facility] ago and since that time he has had intermittent shortness of breath. Severe at worst moderate currently. Is worsened by exertion or laying flat. He denies cough. He does complain of a subjective fever. He denies chest pain. His review of systems is otherwise negative. Physical Examination: Vitals: 98.4, 180 18/84, 85, 22, 80% on 2 L nasal cannula, 96% on 5 L nasal cannula.. General: Well-nourished and well-developed. Head: Normocephalic atraumatic. Neck: Supple, no lymphadenopathy. No JVD. Nontender. Cardiovascular: Regular rate and rhythm. 2 out of 6 systolic murmur. Respiratory: Moderate respiratory distress with diffuse rhonchi bilaterally. Abdominal: Soft, nontender, nondistended, normal bowel sounds. No guarding, rebound, or peritoneal signs. Back: Nontender. Extremities: Nontender, no edema. Skin: Normal color, no rash. Neurologic: Alert and oriented ?3. Cranial nerves II through XII are intact. Normal strength and sensation. Psych: Normal affect. Test Results: EKG is sinus at 84 with lateral T wave inversions in leads I/aVL and V4 to V6. This is a change from January 17. Troponin is 0.088. Lactic acid is 1.9. Chem-7 shows a BUN of 31, creatinine 1.54, glucose of 108. CBC shows a white count of 15.0, H&H of 10.033.8, segmented for 72, lymphs at 70, immature granulocytes of 3.8%. Clinical Impression(s) from Imaging Studies Chest X-Ray 02/12/20 13:26 IMPRESSION: Worsening bilateral pneumonia, pulmonary edema, or ARDS. Electronically Signed: Bert Kuhn MD at 13:57 EST Tel , Service support , Emergency Department Course and Treatment: Patient pulse ox is remained in the mid 90s on 5 L nasal cannula. Given his chest x-ray and his renal transplant he was given Zosyn and vancomycin IV. Treatment Plan: Patient was discussed with Dr. Saucedo. A CT chest without contrast, LFTs, and BNP were added. The patient will be admitted to the hospital for further evaluation and treatment. Disposition: Admitted in serious condition. Impression: 1. Pneumonia. 2. Hypoxia. 3. Status post renal transplant. 4. Coagulopathy on Eliquis. 5. Chronic renal insufficiency. 6. Lateral T wave inversions, new. This note was generated with [employer] dictation software. It may contain incorrect words, spelling, and punctuation that were not noted in review of the chart prior to signing ED Disposition - Plan for ED Patient: Referrals: Girish Mccormick MD [Primary Care Provider] -
[2020-02-12 14:40] LABS: AST(SGOT) 49 U/L (15-37); Alanine Aminotransfer ALT/SGPT 89 U/L (16-61); Albumin, Serum 2.1 g/dL (3.2-5.0); Alkaline Phosphatase 97 U/L (45-117); Bilirubin, Direct 0.08 mg/dL (0.00-0.30); Globulin 5.2 g/dL (2.2-4.2); Protein, Total 7.3 g/dL (6.4-8.2)
[2020-02-12 14:48] LABS: BNP,B-Type NATRIURETIC PEPTIDE 1073.4 pg/mL (0-100)
[2020-02-12] MEDS: Aspirin 81 MG TAB.CHEW 324 MG PO (14:48)
--- NOTE | 2020-02-12 15:26 | NURSING ---
PCU LUCÍA PNEUMONIA, CHF
--- NOTE | 2020-02-12 15:36 | PCM.HP.STD ---
Problem List (1) Leukocytosis Status: Acute (2) Chronic anemia Status: Chronic (3) TUCKER (acute kidney injury) Status: Resolved (4) a fib with rvr Status: Resolved (5) COVID-19 virus infection Status: Inactive (6) Acute respiratory failure with hypoxia Status: Acute (7) Essential (primary) hypertension Status: Chronic (8) History of renal transplant Status: Chronic Comment: 2005 for congenital defect (9) Right bundle branch block Status: Chronic (10) Hyperlipidemia Status: Chronic Qualifiers: History of Present Illness Date of Admission: 02/12/20 Mr. De La Rosa is a 54 year old M who was recently admitted here from 01/18/2020 until 02/10/2020 with Covid pneumonia. He was diagnosed with this on January 01 and was intubated upon admission. He completed courses of dexamethasone and remdesivir negative Covid test on 02/08. During his hospitalization he developed new onset paroxysmal atrial fibrillation for which she was treated with metoprolol and amiodarone he was also placed on apixaban. He was discharged to a nursing facility on 02/10/2020 with 3 L nasal cannula sats here on 3 L were 94 to 95%. Since his discharge she has presented to the hospital 3 times with complaints of shortness of breath; twice on 02/11/2020 and once this morning. His oxygen saturation on 2 L nasal cannula was 80% on arrival here today. His only complaint is shortness of breath. He denies fever or chills, cough, chest pain, or palpitations. Vital signs show the patient is afebrile blood pressure is within normal limits he is tachypneic with respiratory rates in the upper 20s to low 30s. He currently is on high flow nasal cannula 6 L with oxygen saturations around 95%. His white count is mildly elevated when compared to discharge at 15. His creatinine is stable at 1.54. His troponin is 0.088 which is trended up since he was seen yesterday in the emergency department. His BMP is 1073.4. His EKG shows normal sinus rhythm with a right bundle branch block. chest x-ray and noncontrasted CAT scan of his chest are both consistent with worsening bilateral pneumonia versus pulmonary edema versus ARDS. With his elevated BNP and clinical presentation he was given 60 of Lasix IV push in the emergency department. He will be admitted to stepdown. Past Medical History Past Medical History (Chronic Problems): Chronic Problems (Last Updated 09/02/18 @ 13:55 by Katheryn Mosqueda) Chronic anemia (Chronic) Essential (primary) hypertension (Chronic) History of renal transplant (Chronic 2005) 2005 for congenital defect Right bundle branch block (Chronic) Hyperlipidemia (Chronic) Medical History: Medical History (Last Reviewed 02/12/20 @ 15:[address] Fransisca Saucedo DO) Essential (primary) hypertension (Chronic) I10 Right bundle branch block (Chronic) I45.10 Hyperlipidemia (Chronic) E78.5 Obesity E66.9 Allergies No Known Allergies Allergy (Verified 02/12/20 13:08) Home Medications: Ambulatory Orders Medication Instructions Recorded Famotidine [Pepcid] 20 mg PO DAILY 11/19/12 Atorvastatin Calcium [Lipitor] 10 mg PO QHS 11/13/18 Cholecalciferol (Vitamin D3) 2,000 unit PO DAILY 11/13/18 [Vitamin D3] Sulfamethoxazole/Trimethoprim 1 tab PO DAILY 01/18/20 [Sulfamethoxazole-Tmp Ss Tablet] Apixaban [Eliquis] 2.5 mg PO BID tab 02/10/20 Metoprolol Tartrate [Lopressor 100 mg PO BID tab 02/10/20 (beta aretha)] Amiodarone HCl [Cordarone] 200 mg PO BID 02/12/20 Aspirin [Aspirin, Baby] 81 mg PO DAILY@0800 02/12/20 Furosemide [Lasix] 40 mg PO DAILY 02/12/20 Prednisone 7.5 mg PO DAILY@0800 02/12/20 Tacrolimus Anhydrous [Prograf] 1 mg PO BID 02/12/20 Surgical History: Surgical History (Last Reviewed 02/12/20 @ 15:[address] Fransisca Saucedo DO) History of renal transplant (Chronic) Onset Date: 2005 Z94.0 2005 for congenital defect H/O repair of left rotator cuff Z98.890 H/O repair of right rotator cuff Z98.890 Surgical History: noncontributory, - - renal x-plant, fistula, bilateral shoulder surgery Psychiatric History: No pertinent psych hx Lives: Assisted Smoking Status: Former smoker Tobacco Use: Cigarettes - smoked up until he was admitted with COVID about 1ppd Alcohol: Rare Drugs: None - *Family History Maternal Family History: Family History (Last Reviewed 02/12/20 @ 15:[address] Fransisca Saucedo DO) Mother History of kidney disease History Items: No pertinent history Paternal Family History: Family History (Last Reviewed 02/12/20 @ 15:[address] Fransisca Saucedo DO) Mother History of kidney disease History Items: No pertinent history Review of Systems Constitutional: Reports: Weakness, Fatigue. Denies: Anorexia, Chills, Fever, Night Sweats, Malaise, Weight Change Eyes: Denies: Blurred vision, Double vision, Drainage, Eyelid Inflammation, Pain, Redness, Vision Change HEENT: Reports: Difficulty Hearing. Denies: Head Aches, Hearing Changes, Nasal bleeding, Nasal Congestion, Post Nasal Drip, Sinus Congestion, Sinus Drainage, Sore Throat, Visual Changes Cardiovascular: Reports: Orthopnea. Denies: Chest Pain, Claudication, Chest Pressure, Chest Tightness, Edema, Heaviness, Light Headedness, Palpitations, Paroxysmal Noc. Dyspnea, Syncope Respiratory: Reports: Shortness of Breath, Shortness of breath at rest, Shortness of breath upon exertion. Denies: Cough, Hemoptysis, Pleuritic Pain, Sputum production, Wheezing Gastrointestinal: Denies: Abdominal Pain, Constipation, Diarrhea, Dyspepsia, Hematemesis, Hematochezia, Nausea, Melena, Vomiting Genitourinary: Denies: Dysuria, Frequency, Hematuria, Hesitancy, Incontinence, Nocturia, Retention, Urgency Musculoskeletal: Denies: Back Pain, Joint Pain, Joint stiffness, Joint swelling, Joint Tenderness, Muscle pain, Neck Pain Skin: Reports: Rash. Denies: Dryness, Jaundice, Lesions, Pruritis, Skin Changes, Wounds Neurological: Denies: Balance problems, Change in Speech, Slurred speech, Confusion, Focal weakness, Incoordination, Numbness, Tingling, Tremor, Seizures Psychiatric: Denies: Anxiety, Depression Endocrine: Denies: Change in Body Habitus, Heat/ Cold Intolerance, Polydipsia, Polyuria Hematologic/ Lymphatic: Reports: Easy Bruising. Denies: Adenopathy, Anemia, Easy Bleeding, Petechiae, Purpura VTE Information - Inpt Only VTE Present on Admission: No VTE Mechan Device Prophylaxis: None VTE Pharm Prophylaxis ordered?: No Reason prophylaxis not ordered:: Treatment Not Indicated - pt on DOAC Patient Problems: Active and Suspected Problems (Last Updated 09/02/18 @ 13:55 by Katheryn Mosqueda) Leukocytosis (Acute) Acute respiratory failure with hypoxia (Acute) - Physical Exam Vitals/I&O's: Vital Signs Temp Pulse Resp BP Pulse Ox 98.4 F 84 24 H 114/85 H 98 02/12/20 15:26 02/12/20 15:26 02/12/20 15:26 02/12/20 15:26 02/12/20 15:26 Oxygen Flow Rate (L/min) 5 Oxygen Delivery Method Nasal Cannula Weight: 71.2 kg Body Mass Index (BMI) 26.1 General: Alert, Oriented x3, Cooperative, Well developed, Well nourished, - - White male appears much older than stated age, mild accessory muscle use with respiration noted HEENT: Atraumatic, PERRLA, EOMI, Normocephalic, EAC Clear Oral: No Gingival or Mucosal Lesions/ Ulcerations, Dry Mucosa, - - poor dentition Neck: Supple, Negative Carotid Bruits, No Nodes, No Nuchal Rigidity, Trachea Midline, Thyroid Normal Size and Texture, JVD, Bilateral Lungs: No rhonchi, No wheeze, No rales, Rales - Diffuse bilateral, Short of Breath, Tachypneic, Using Accessory Muscles - Minimal Cardiovascular: Regular rate, Regular Rhythm, Normal S1, Normal S2, No Ectopic Activity, Murmur - SM, No rub noted, No Gallop Abdomen: Bowel Sounds Present, Soft, Non Tender, Non-Distended, No Hepato-splenomegaly, - - Large superficial hematoma right mid abdomen below umbilicus Extremities: No clubbing, No cyanosis, No edema, Capillary Refill Less than 3 Seconds, Peripheral Pulses Normal Skin: No breakdown, Rash Present - small red dots on trunk and extremities Musculoskeletal: No Tenderness to Palpation of Joints or Extremities, No Muscle Wasting, Arthritic Changes Lymphatic: No Cervical, Supraclavicular, or Inguinal Adenopathy Neurological: Cranial nerves II-XII grossly intact, Deep Tendon Reflexes 2+/4 and Symmetrical, Neuro grossly intact, Muscle tone normal, Sensory exam intact to light touch and pain, Coordination normal, - - Generalized weakness proximal greater than distal Psych/Mental Status: Appropriate, Flat Affect Laboratory Results 02/12/20 13:15: WBC 15.0 H, RBC 3.68 L, Hgb 10.0 L, Hct 33.8 L, MCV 91.8, MCH 27.2, MCHC 29.6 L, RDW Std Deviation 49.2 H, RDW Coeff of [place] 14.8 H, Plt Count 438, MPV 9.2, Immature Gran % (Auto) 3.800 H, Neut % (Auto) 72.0 H, Lymph % (Auto) 7.6 L, [place] % (Auto) 10.5 H, Eos % (Auto) 5.5 H, Baso % (Auto) 0.6, Absolute Neuts (auto) 10.8 H, Absolute Lymphs (auto) 1.14, Nucleated RBC % 0.1, Differential Comment SCANNED, Diff Path Review June02/12/20 13:15: Sodium 138, Potassium 4.2, Chloride 104, Carbon Dioxide 29.0, Anion Gap 5, BUN 31 H, Creatinine 1.54 H, Estim Creat Clear Calc 47.70, Est GFR (MDRD) Af Amer 61, Est GFR (MDRD) Non-Af 50 L, BUN/Creatinine Ratio 20.1 H, Glucose 108 H, Calcium 9.2, Troponin I 0.088 H 02/12/20 13:15: Lactic Acid 1.9 02/12/20 13:15: Total Bilirubin 0.20, Direct Bilirubin 0.08, AST 49 H, ALT 89 H, Alkaline Phosphatase 97, Total Protein 7.3, Albumin 2.1 L, Globulin 5.2 H 02/12/20 13:15: B-Natriuretic Peptide 1073.4 H Assessment/Plan All Active Problems (Last Updated 09/02/18 @ 13:55 by Katheryn Mosqueda) TUCKER (acute kidney injury) (Resolved) Leukocytosis (Acute) Acute respiratory failure with hypoxia (Acute) a fib with rvr (Resolved) Acute on chronic hypoxic respiratory failure -Etiology uncertain at this time (recent COVID, Suspect some component of heart failure, ? pulmonary fibrosis, PNA) -Supplemental oxygen as needed -Wean as able -Would like to utilize BiPAP at night but patient unwilling to try this at this time -Lasix 40 IV push 3 times daily -Strict I's and O's -MRSA PCR -Sputum culture if able -PCT pending -We will initiate Vanco and Zosyn at this time though highly doubt this is infectious in nature -Check ECHO -BNP is elevated to greater than 1000 -Consult pulmonology Troponin elevation -Troponin had peaked on admission at 0.162 but had trended down--> troponin has now trended back up -Cycle troponins -Check echo -If wall motion abnormality noted patient may need stress test versus cardiac catheterization Mild transaminitis -These appear to be stable -Monitor periodically -If remains elevated would pursue outpatient work-up Leukocytosis -Suspect reactive but will pursue infectious work-up initially -Mild left shift is present -See above Chronic anemia secondary to chronic kidney disease -Stable hemoglobin -Monitor with anticoagulation Aortic stenosis-mild -Last ECHO noted in the EMR was on 12/19/2018 -EF was 55%, there was mild aortic stenosis, and mild aortic valve insufficiency -Repeat ECHO pending CKD stage III -Patient with history of renal transplant 2005 secondary to congenital defect -Continue Prograf, prednisone, Bactrim -Creatinine stable -Monitor with diuresis -Avoid nephrotoxins as able PAF -Currently in normal sinus rhythm -Continue amiodarone, metoprolol, and DOAC -Monitor on telemetry Hyperlipidemia -Statin GERD -Continue famotidine DVT prophylaxis -DOAC CODE STATUS -Full code Inpatient E&M: 25154 Init Hosp L3
[2020-02-12] MEDS: Vancomycin IV 1,000 MG/200 ML BAG 200 MG IV (15:37)
[2020-02-12] MEDS: Furosemide 100 MG/10 ML Vial 60 MG IV (16:04)
--- NOTE | 2020-02-12 16:31 | ED.RN ---
SWCC UPDATED ON ADMISSION
--- NOTE | 2020-02-12 16:46 | PCS.PANDOC ---
PANDEMIC DOCUMENTATION INITIATED: Date: 02/12/2020 Time: 3571
--- NOTE | 2020-02-12 16:58 | ECHOD_ITS ---
Reason For Study: DYSPNEA Procedure This was a 2D Doppler, Color Flow transthoracic echocardiogram. The study was technically difficult. Exam performed portable in patient room. Left Ventricle Normal LV size. Moderate concentric left ventricular hypertrophy. Left ventricular systolic function is hyperdynamic. The estimated ejection fraction is 70 %. Stage 2 diastolic dysfunction. No regional wall motion abnormalities noted. Right Ventricle Normal RV size. Normal systolic function. Atria Normal left atrium. Normal right atrium. Mitral Valve Normal mitral valve. Tricuspid Valve Normal tricuspid valve. Aortic Valve Trisinus/trileaflet aortic valve. Mild (1+) aortic valve insufficiency. Pulmonic Valve Normal pulmonic valve. Great Vessels Normal aortic root. The pulmonary artery is normal size. Normal inferior vena cava. Pericardium/Pleural No pericardial effusion. Medication No Definity used due to s/p renal transplant (2005). MMode/2D Measurements & Calculations LVIDd: 3.6 cm IVSd: 1.7 cm LVOT diam: 2.0 cm LVIDs: 2.0 cm LVPWd: 1.7 cm RVDd: 3.5 cm FS: 44.7 % LVOT area: 3.1 cm2 Ao root diam: 3.6 cm LAV(MOD-bp): 38.3 ml LVAd ap4: 37.6 cm2 LAV(MOD-bp) Indexed: 21.8 ml/m2 EDV(MOD-sp4): 120.4 ml LAV(MOD-sp2): 39.1 ml EDV(sp4-el): 127.9 ml LAV(MOD-sp4): 35.5 ml LVAs ap4: 19.6 cm2 ESV(MOD-sp4): 44.0 ml ESV(sp4-el): 47.6 ml EF(MOD-sp4): 63.5 % EF(sp4-el): 62.8 % SV(MOD-sp4): 76.4 ml SV(sp4-el): 80.3 ml LA A4 area: 16.0 cm2 LA dimension(2D): 3.1 cm RA A4 area: 9.4 cm2 Time Measurements MV dec time: 0.23 sec Doppler Measurements & Calculations MV E max ike: 92.9 cm/sec Lat Peak E' Ike: 8.9 cm/sec Med Peak E' Ike: 7.9 cm/sec MV A max ike: 83.1 cm/sec E/E' lat: 10.4 E/E' med: 11.7 MV E/A: 1.1 Ao V2 max: 315.2 cm/sec AI max ike: 456.2 cm/sec TR max ike: 286.8 cm/sec Ao max P.8 mmHg AI max P.3 mmHg TR max P.9 mmHg Ao V2 mean: 242.8 cm/sec AI dec slope: 411.4 cm/sec2 Ao mean P.5 mmHg AI P1/2t: 324.8 msec Ao V2 VTI: 47.3 cm Interpretation Summary Normal LV size. Moderate concentric left ventricular hypertrophy. Left ventricular systolic function is hyperdynamic. The estimated ejection fraction is 70 %. Stage 2 diastolic dysfunction. Mild (1+) aortic valve insufficiency. Ordering Physician: Fransisca Saucedo Referring Physician: ELIZABETH LEVINE Performed By: Isabel Morrow RDCS, RVT
[2020-02-12 17:30] LABS: Base Excess 1 mmol/L (-2 to +2); Bicarbonate 25.9 mmol/L (22-26); Blood Gas Specimen Type ART; PO2 118 mmHG (75-100); SITE R Brach; SO2 99 % (95-99); Total Carbon Dioxide 27 mmol/L; pCO2 41.2 mmHg (35-45); pH 7.41 (7.35-7.45)
[2020-02-12 17:41] LABS: O2 Delivery Device CANNULA
[2020-02-12 17:58] LABS: Procalcitonin 0.27 ng/mL (0.00-0.09)
--- NOTE | 2020-02-12 18:42 | PCM.RX.CS ---
Consult Pharmacy has been consulted to manage selected antiobiotic: Vancomycin Type of Consult: New start Suspected Infection: Pneumonia Prior Doses of Antibiotics Received/Current Regimen: Received 1gm iv x 1 in ER. Labs: Sodium 138 mmol/L (136-145) 02/12/20 13:15 Potassium 4.2 mmol/L (3.5-5.1) 02/12/20 13:15 Chloride 104 mmol/L (98-107) 02/12/20 13:15 Carbon Dioxide 29.0 mmol/L (21.0-32.0) 02/12/20 13:15 Anion Gap 5 (5-15) 02/12/20 13:15 BUN 31 mg/dL (7-18) H 02/12/20 13:15 Creatinine 1.54 mg/dL (0.70-1.30) H 02/12/20 13:15 Est GFR (MDRD) Af Amer 61 mL/min (>60) 02/12/20 13:15 Est GFR (MDRD) Non-Af 50 mL/min (>60) L 02/12/20 13:15 BUN/Creatinine Ratio 20.1 RATIO (10-20) H 02/12/20 13:15 Glucose 108 mg/dL (74-106) H 02/12/20 13:15 Weight used for dosin.3 kg Estimated Creatinine Clearance: 48 ml/min Goal Trough: 15-20 mcg/mL Pharmacy Plan for Drug Dosing: Will begin 750mg iv q12h. Patient had been on this regimen with previous recent admission. Trough level ordered for 1.04.04. Pharmacy Service will continue to monitor and adjust dosing as required. Follow-Up Labs: Trough Vancomycin - 1.2.21 @0130 before 0200 dose
--- NOTE | 2020-02-12 18:49 | PCM.HOSP.N ---
Hospitalist Note Patient states that he got his right foot and ankle smashed by a bed once he arrived to the floor. Per discussion with nursing he is unable to bear weight. Will check x-rays of his right foot and ankle for potential fracture. Order placed and pending.
--- NOTE | 2020-02-12 19:10 | RAD_ITS ---
STUDY: X-RAY - RIGHT ANKLE REASON FOR EXAM: Male, 54 years old. RIGHT ANKLE PAIN SINCE YESTERDAY. NKI. TECHNIQUE: 3 view(s) of the ankle. COMPARISON: None. FINDINGS: Normal visualized distal tibia and fibula. Normal medial and lateral malleoli. Normal tibiotalar articulation and ankle mortise. Normal visualized talus and calcaneus. Moderate size plantar calcaneal enthesophyte. The visualized subtalar, talonavicular, calcaneocuboid and tarsal articulations are normal. The soft tissue structures are unremarkable. RAD/Ankle min 3 Views IMPRESSION: Normal x-ray examination of the ankle. Electronically Signed: Bert Kuhn MD at 7:05 EST Tel , Service support ,
[2020-02-12 20:19] LABS: M R Staph aureus DNA By PCR Negative (Negative); Probe Check PASS; Specimen Processing Control PASS
[2020-02-12] MEDS: Albuterol 2.5 MG/3 ML VIAL.NEB. INHALATION (21:25)
--- NOTE | 2020-02-12 21:30 | NURSING ---
RT at bedside, pt. 89% on 6L n/c. RT putting pt. on venti mask at 35%. Dr. Garcia updated.
[2020-02-12] MEDS: APIXABAN 5 MG TABLET PO (22:44)
[2020-02-12] MEDS: Amiodarone 200 MG Tablet PO (22:44)
[2020-02-12] MEDS: Atorvastatin Calcium 10 MG Tablet PO (22:44)
[2020-02-12] MEDS: Tacrolimus Anhydrous 1 MG Capsule PO (22:44)
[2020-02-12] MEDS: Metoprolol Tartrate 100 MG Tablet PO (22:44)
[2020-02-12] MEDS: LORazepam 2 MG/ML Syringe 0.5 MG IV (22:45)
[2020-02-12] MEDS: 0.9% Saline Lock 10 ML Syringe IV (22:45)
[2020-02-12] MEDS: Furosemide 40 MG/4 ML Vial IV (22:45)
[2020-02-13] VITALS (31 sets, daily range): BP systolic 88–141; BP diastolic 59–86; PULSE 75–108; RESP 12–33; TEMP 36.3–37; O2SAT 93–99
[2020-02-13] MEDS: 0.9% Saline Lock 10 ML Syringe IV ×3 (06:05→12:04)
[2020-02-13] MEDS: Furosemide 40 MG/4 ML Vial IV ×4 (06:05→21:33)
[2020-02-13] MEDS: LORazepam 2 MG/ML Syringe 0.5 MG IV ×2 (06:05→12:05)
[2020-02-13 06:54] LABS: Absolute Lymphocyte Count 1.63 X10^3/uL (0.83-4.51); Absolute Neutrophil Count 11.1 X10^3/uL (2.0-7.7); Basophil# 0.07 X10^3/uL; Basophil% 0.4 % (0-1); Eosinophil# 1.02 X10^3/uL; Eosinophils% 6.5 % (0-5); Hematocrit 31.8 % (40-54); Hemoglobin 9.2 g/dL (13.0-16.5); Lymphocyte # 1.63 X10^3/ul (4.0); Lymphocyte % 10.4 % (19-41); Mean Corp Hgb Conc 28.9 g/dL (32-36); Mean Corpuscular Hgb 26.7 pg (27.0-32.0); Mean Corpuscular Volume 92.2 fL (80-94); Mean Platelet Vol. 9.3 fl (6.2-12.0); Monocyte# 1.55 X10^3/uL; Monocyte% 9.8 % (0-10); NRBC Flagged by Analyzer 0 % (0-5); Neutrophil # 11.07 X10^3/uL (2.7-7.7); Neutrophil % 70.4 % (47-70); POSITIVE DIFFERENTIAL YES; Platelet Count 396 K/mm3 (150-450); RBC Distribution Width SD 49.4 fl (35.1-43.9); Red Blood Count 3.45 M/mm3 (4.6-6.2); White Blood Count 15.7 K/mm3 (4.4-11.0)
[2020-02-13 06:57] LABS: Differential Indicated SCAN CRITERIA MET
[2020-02-13 07:18] LABS: ALB/GLOB Ratio 0.4 RATIO (0.9-2.4); AST(SGOT) 37 U/L (15-37); Alanine Aminotransfer ALT/SGPT 74 U/L (16-61); Alkaline Phosphatase 83 U/L (45-117); Anion Gap 7 (5-15); BUN 35 mg/dL (7-18); BUN/Creat Ratio 20.1 RATIO (10-20); Calcium,Total 9.1 mg/dL (8.5-10.1); Chloride 102 mmol/L (98-107); Creatinine, Serum 1.74 mg/dL (0.70-1.30); EST Glomerular Filtration Rate 44 mL/min (>60); Est Glom Filt Rate - Afr Amer 53 mL/min (>60); Estimated Creatinine Clearance 42.22 ml/min; Globulin 4.6 g/dL (2.2-4.2); Glucose 124 mg/dL (74-106); Magnesium 1.6 mg/dL (1.6-2.6); Phosphorus 3.8 mg/dL (2.5-4.9); Potassium 3.8 mmol/L (3.5-5.1); Protein, Total 6.6 g/dL (6.4-8.2); Sodium Level 137 mmol/L (136-145)
[2020-02-13 07:34] LABS: Platelet Estimate ADEQUATE (ADEQ)
[2020-02-13 07:35] LABS: Hypochromasia 2+
--- NOTE | 2020-02-13 07:53 | NURSING ---
Received phone call from a person named Yunier Carranza, who is not listed as a contact for pt, at requesting information on pt. This RN verified with pt that they knew this person and asked pt if he wanted information shared with Yunier. Pt stated He's a friend, just tell him I'm stuck in the hospital and have no energy to talk right now. This RN called Yunier at phone number above; call went to voicemail. No message left.
--- NOTE | 2020-02-13 08:02 | PN_ITS ---
Patient Problems: Active and Suspected Problems (Last Reviewed 02/12/20 @ 15:[address] Fransisca Saucedo, DO) Leukocytosis (Acute) Acute respiratory failure with hypoxia (Acute) Reason for Visit: Acute hypoxic respiratory failure Subjective: Patient is a 54-year-old male discharge from the hospital on 02/10/2020 after prolonged hospitalization from 01/18/2020 to 02/10/2020 with COVID-19 pneumonia and subsequent respiratory failure who presented back to the emergency department 2 days after her discharge with shortness of breath Objective: GENERAL: cooperative but dyspneic at rest HEENT: Atraumatic; EYES; Anicteric, Normal Conjunctiva NECK; supple, normal thyroid, RESPIRATORY: Diminished to auscultation CARDIOVASCULAR: Irregular S1-S2, tachycardic GI: soft, normoactive bowel sounds, : No Renal angle tenderness; EXTREMITIES: No edema, no clubbing, MUSCULOSKELETAL: no muscle waisting NEURO: Awake; no lateralizing signs. SKIN: No Rash PSYCH; Flat affect Vitals/I&O's: Vital Signs Temp Pulse Resp BP Pulse Ox 98.4 F 102 H 29 H 107/74 95 02/13/20 06:00 02/13/20 07:00 02/13/20 07:00 02/13/20 07:00 02/13/20 07:00 Oxygen Flow Rate (L/min) 6 Oxygen Delivery Method Venturi Mask Weight: 70.3 kg Body Mass Index (BMI) 25.7 Intake and Output for Last 24 Hours 02/11/20 02/12/20 02/13/20 23:59 23:59 23:59 Intake Total 660 / 660 555 / 555 Output Total 1150 / 1150 1000 / 1000 Balance -490 / -490 -445 / -445 Laboratory Results 02/12/20 13:15: WBC 15.0 H, RBC 3.68 L, Hgb 10.0 L, Hct 33.8 L, MCV 91.8, MCH 27.2, MCHC 29.6 L, RDW Std Deviation 49.2 H, RDW Coeff of Genaro 14.8 H, Plt Count 438, MPV 9.2, Immature Gran % (Auto) 3.800 H, Neut % (Auto) 72.0 H, Lymph % (Auto) 7.6 L, [place] % (Auto) 10.5 H, Eos % (Auto) 5.5 H, Baso % (Auto) 0.6, Absolute Neuts (auto) 10.8 H, Absolute Lymphs (auto) 1.14, Nucleated RBC % 0.1, Differential Comment SCANNED, Diff Path Review June02/12/20 13:15: Sodium 138, Potassium 4.2, Chloride 104, Carbon Dioxide 29.0, Anion Gap 5, BUN 31 H, Creatinine 1.54 H, Estim Creat Clear Calc 47.70, Est GFR (MDRD) Af Amer 61, Est GFR (MDRD) Non-Af 50 L, BUN/Creatinine Ratio 20.1 H, Glucose 108 H, Calcium 9.2, Troponin I 0.088 H 02/12/20 13:15: Lactic Acid 1.9 02/12/20 13:15: Total Bilirubin 0.20, Direct Bilirubin 0.08, AST 49 H, ALT 89 H, Alkaline Phosphatase 97, Total Protein 7.3, Albumin 2.1 L, Globulin 5.2 H 02/12/20 13:15: B-Natriuretic Peptide 1073.4 H 02/12/20 13:15: Procalcitonin 0.27 H 02/12/20 17:20: MRSA (PCR) Negative 02/12/20 17:27: Specimen Type ART, Sample Site R Brach, pH 7.41, Bicarbonate Actual 25.9, Total CO2 27, Base Excess 1, O2 Saturation 99, ABG pCO2 41.2, ABG pO2 118 H, O2 Delivery Device CANNULA, Liter Flow 6.0 02/12/20 17:36: Troponin I 0.059 H 02/12/20 20:06: Troponin I 0.057 H 02/13/20 05:57: WBC 15.7 H, RBC 3.45 L, Hgb 9.2 L, Hct 31.8 L, MCV 92.2, MCH 26.7 L, MCHC 28.9 L, RDW Std Deviation 49.4 H, RDW Coeff of Genaro 15.0 H, Plt Count 396, MPV 9.3, Immature Gran % (Auto) 2.500 H, Neut % (Auto) 70.4 H, Lymph % (Auto) 10.4 L, [place] % (Auto) 9.8, Eos % (Auto) 6.5 H, Baso % (Auto) 0.4, Absolute Neuts (auto) 11.1 H, Absolute Lymphs (auto) 1.63, Nucleated RBC % 0, Diff Path Review May foll, Platelet Estimate ADEQUATE, Hypochromasia 2+ 02/13/20 05:57: Sodium 137, Potassium 3.8, Chloride 102, Carbon Dioxide 28.0, Anion Gap 7, BUN 35 H, Creatinine 1.74 H, Estim Creat Clear Calc 42.22, Est GFR (MDRD) Af Amer 53 L, Est GFR (MDRD) Non-Af 44 L, BUN/Creatinine Ratio 20.1 H, Glucose 124 H, Calcium 9.1, Phosphorus 3.8, Magnesium 1.6, Total Bilirubin 0.20, AST 37, ALT 74 H, Alkaline Phosphatase 83, Total Protein 6.6, Albumin 2.0 L, Globulin 4.6 H, Albumin/Globulin Ratio 0.4 L Current Medications Acetaminophen (Acetaminophen 325 Mg Tablet) 650 mg PO Q6H PRN PRN PRN Reason: Pain Score 1-10/Temp > 100.7 F Al Hydroxide/Mg Hydroxide (Mag Hydrox/Al Hydrox/Simeth 30 Ml Udc) 30 ml PO Q6H PRN PRN PRN Reason: Gastric Burning Albuterol Sulfate (Albuterol 2.5 Mg/3 Ml Vial.Neb.) 2.5 mg INHALATION Q2H PRN PRN PRN Reason: SOB/Wheezing Last Admin: 02/12/20 21:25 Dose: 2.5 mg Documented by: Amiodarone HCl (Amiodarone 200 Mg Tablet) 200 mg PO BID [facility] Stop: 02/18/20 22:01 Last Admin: 02/12/20 22:44 Dose: 200 mg Documented by: Apixaban (Apixaban 5 Mg Tablet) 5 mg PO BID [facility] Last Admin: 02/12/20 22:44 Dose: 5 mg Documented by: Aspirin (Aspirin 81 Mg Tab.Chew) 81 mg PO DAILY@0800 [facility] Atorvastatin Calcium (Atorvastatin Calcium 10 Mg Tablet) 10 mg PO QHS [facility] Last Admin: 02/12/20 22:44 Dose: 10 mg Documented by: Docusate Sodium (Docusate Sodium 100 Mg Capsule) 100 mg PO BID PRN PRN PRN Reason: Constipation Famotidine (Famotidine 20 Mg Tablet) 20 mg PO DAILY [facility] Furosemide (Furosemide 40 Mg/4 Ml Vial) 40 mg IV Q8 [facility] Last Admin: 02/13/20 06:05 Dose: 40 mg Documented by: Guaifenesin (Guaifenesin 10 Ml Udc (200mg/10ml)) 20 ml PO Q4H PRN PRN PRN Reason: COUGH Vancomycin IV Pharmacy to Dose (1 ea/ Sodium Chloride) 500 mls @ 250 mls/hr IV PRN PRN; Protocol PRN Reason: Rx to Dose Piperacillin Sod/Tazobactam (Sod 3.375 gm/ Sodium Chloride) 50 mls @ 12.5 mls/hr IV Q8 [facility] Last Admin: 02/13/20 06:04 Dose: 12.5 mls/hr Documented by: Vancomycin HCl 750 mg/ Sodium (Chloride) 265 mls @ 250 mls/hr IV Q12H [facility] Last Infusion: 02/13/20 03:48 Dose: Infused Documented by: Lorazepam (Lorazepam 2 Mg/Ml Syringe) 0.5 mg IV Q6H PRN PRN PRN Reason: anxiety with BIPAP Last Admin: 02/13/20 06:05 Dose: 0.5 mg Documented by: Melatonin (Melatonin 3 Mg Tablet) 3 mg PO QHS PRN PRN PRN Reason: INSOMNIA Metoprolol Tartrate (Metoprolol Tartrate 100 Mg Tablet) 100 mg PO BID [facility] Last Admin: 02/12/20 22:44 Dose: 100 mg Documented by: Ondansetron HCl (Ondansetron 4 Mg/2 Ml Vial) 4 mg IV Q8H PRN PRN PRN Reason: NAUSEA/VOMITING Prednisone (Prednisone 5 Mg Tablet) 7.5 mg PO DAILY@0800 [facility] Sodium Chloride (0.9% Saline Lock 10 Ml Syringe) 10 - 40 ml IV UD PRN PRN Reason: SALINE FLUSH Last Admin: 02/13/20 06:05 Dose: 20 ml Documented by: Tacrolimus (Tacrolimus Anhydrous 1 Mg Capsule) 1 mg PO BID [facility] Last Admin: 02/12/20 22:44 Dose: 1 mg Documented by: Trimethoprim/Sulfamethoxazole (Smz/Tmp Ds Tablet) 0.5 tablet PO DAILYCM [facility] STROKE Vital Signs/Narrative: Vital Signs Temp Pulse Resp BP BP Pulse Ox 02/13/20 07:00 102 H 29 H 107/74 95 02/13/20 06:59 102 H 02/13/20 06:00 98.4 F 97 24 H 117/71 97 02/13/20 05:22 95 02/13/20 05:00 98.5 F 94 31 H 120/79 95 Medical Necessity - Tobacco Use Smoking Status: Former smoker Tobacco Use: Cigarettes - smoked up until he was admitted with COVID about 1ppd Assessment/Plan All Active Problems (Last Reviewed 02/12/20 @ 15:[address] Fransisca Saucedo, DO) TUCKER (acute kidney injury) (Resolved) Leukocytosis (Acute) Acute respiratory failure with hypoxia (Acute) a fib with rvr (Resolved) Patient is a 54-year-old male discharge from the hospital on 02/10/2020 after prolonged hospitalization from 01/18/2020 to 02/10/2020 with COVID-19 pneumonia and subsequent respiratory failure who presented back to the emergency department 2 days after her discharge with shortness of breath 1. Acute on chronic hypoxic respiratory failure ?Checks x-ray obtained on admission demonstrated worsening bilateral pneumonia as well as pulmonary edema. Multifactorial etiology including recent COVID-19 pneumonitis, questionable pulmonary fibrosis as well as suspected acute congestive heart failure. Placed on supplemental oxygen admitted to monitored bed for subsequent evaluation and management 2. Acute congestive heart failure -Patient's last 2D echo obtained on 12/12/2018 demonstrated EF of 55%. Patient started on Lasix repeat echo ordered 3. Elevated troponin -thought to be secondary to demand ischemia from above 4. Mild transaminitis Monitoring daily LFTs 5. Chronic kidney disease stage III Patient with history of renal transplant 2006 secondary to congenital defect; did continue with Prograf, prednisone, Bactrim ; Kidney function at baseline consult placed to nephrology. 6. Anemia - Secondary to chronic disorder monitoring H&H and transfuse if patient becomes symptomatic or hemoglobin falls below 7 7. Paroxysmal atrial fibrillation ?Patient in sinus rhythm. Patient is on amiodarone and metoprolol as well as Did continue 8. Dyslipidemia -Patient is on statin therapy, continued at home dose 9. GERD ?Patient is on H2 blockers 10. DVT prophylaxis ?On apixaban Clinical Impression(s) from Imaging Studies Chest X-Ray 02/12/20 13:26 IMPRESSION: Worsening bilateral pneumonia, pulmonary edema, or ARDS. Electronically Signed: Bert Kuhn MD at 13:57 EST Tel , Service support , Chest CT 02/12/20 14:13 IMPRESSION: Bilateral pneumonia, pulmonary edema, or ARDS. Electronically Signed: Bert Kuhn MD at 15:03 EST Tel , Service support , Ankle X-Ray 02/12/20 19:10 IMPRESSION: Normal x-ray examination of the ankle. Electronically Signed: Bert Kuhn MD at 7:05 EST Tel , Service support , Inpatient E&M: [id number] Subs Hosp L3
[2020-02-13] MEDS: predniSONE 5 MG Tablet 7.5 MG PO (08:21)
[2020-02-13] MEDS: Aspirin 81 MG TAB.CHEW PO (08:21)
[2020-02-13] MEDS: Smz/Tmp Ds Tablet 0.5 TABLET PO (08:21)
[2020-02-13] MEDS: Famotidine 20 MG Tablet PO (08:22)
[2020-02-13] MEDS: APIXABAN 5 MG TABLET PO ×2 (08:22→21:33)
[2020-02-13] MEDS: Metoprolol Tartrate 100 MG Tablet PO ×2 (08:22→21:35)
[2020-02-13] MEDS: Tacrolimus Anhydrous 1 MG Capsule PO ×2 (08:22→21:34)
[2020-02-13] MEDS: Amiodarone 200 MG Tablet PO ×2 (08:22→21:34)
--- NOTE | 2020-02-13 08:30 | PCM.CONS.PUL ---
Reason for Consult Date of Consultation: 02/13/20 Reason for Consultation: Chronic hypoxemic respiratory failure History of Present Illness: The patient is a 54-year-old male, with a history as outlined below, who presented to the emergency department on February 11 with complaints of worsening shortness of breath. The patient was just discharged from the hospital following an extensive stay, including ICU admission and invasive mechanical ventilatory support due to respiratory failure as a consequence of COVID-19 pneumonia. At the time of his discharge from the hospital, the patient was maintaining appropriate oxygen saturations on 4 L/min. The patient does have a history of chronic kidney disease and is status post renal transplantation. His history is also significant for paroxysmal atrial fibrillation with RVR. On presentation to the emergency department, the patient was noted to be afebrile and hemodynamically stable. He was maintaining appropriate oxygen saturations in the mid 90s on 6 L/min via nasal cannula. Laboratory evaluation revealed a white blood cell count of 15,000. Chemistry profile was notable for a creatinine of 1.54. Troponin was increased to 0.088. BNP was elevated to 1073. Procalcitonin was noted to be 0.27. MRSA screen was negative. Chest x-ray and CT scan both revealed bilateral airspace disease, which appeared similar to prior chest imaging from the patient's last hospitalization. The patient was again placed empirically on antimicrobials and received a one-time dose of IV Lasix. He was subsequently admitted to the progressive care unit for further management. Past Medical History Past Medical History (Chronic Problems): Chronic Problems (Last Reviewed 02/12/20 @ 15:[address] 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 Fransisca Saucedo DO) Essential (primary) hypertension (Chronic) I10 Right bundle branch block (Chronic) I45.10 Hyperlipidemia (Chronic) E78.5 Obesity E66.9 Allergies No Known Allergies Allergy (Verified 02/12/20 13:08) Home Medications: Ambulatory Orders Medication Instructions Recorded Famotidine [Pepcid] 20 mg PO DAILY 11/19/12 Atorvastatin Calcium [Lipitor] 10 mg PO QHS 11/13/18 Cholecalciferol (Vitamin D3) 2,000 unit PO DAILY 11/13/18 [Vitamin D3] Sulfamethoxazole/Trimethoprim 1 tab PO DAILY 01/18/20 [Sulfamethoxazole-Tmp Ss Tablet] Apixaban [Eliquis] 2.5 mg PO BID tab 02/10/20 Metoprolol Tartrate [Lopressor 100 mg PO BID tab 02/10/20 (beta aretha)] Amiodarone HCl [Cordarone] 200 mg PO BID 02/12/20 Aspirin [Aspirin, Baby] 81 mg PO DAILY@0800 02/12/20 Furosemide [Lasix] 40 mg PO DAILY 02/12/20 Prednisone 7.5 mg PO DAILY@0800 02/12/20 Tacrolimus Anhydrous [Prograf] 1 mg PO BID 02/12/20 Surgical History: Surgical History (Last Reviewed 02/12/20 @ 15:[address] Fransisca Saucedo DO) History of renal transplant (Chronic) Onset Date: 2005.0 2005 for congenital defect H/O repair of left rotator cuff Z98.890 H/O repair of right rotator cuff Z98.890 Surgical History: noncontributory, - - renal x-plant, fistula, bilateral shoulder surgery Psychiatric History: No pertinent psych hx Lives: Long-Term Smoking Status: Former smoker Tobacco Use: Cigarettes - smoked up until he was admitted with COVID about 1ppd Alcohol: Rare Drugs: None - *Family History Maternal Family History: Family History (Last Reviewed 02/12/20 @ 15:[address] Fransisca Saucedo DO) Mother History of kidney disease History Items: No pertinent history Paternal Family History: Family History (Last Reviewed 02/12/20 @ 15:[address] Fransisca Saucedo DO) Mother History of kidney disease History Items: No pertinent history Review of Systems Constitutional: Reports: Malaise, Weakness. Denies: Chills, Fever Eyes: Denies: Blurred vision, Double vision HEENT: Denies: Head Aches, Sinus Congestion, Sinus Drainage Cardiovascular: Denies: Chest Pain, Palpitations Respiratory: Reports: Shortness of Breath Gastrointestinal: Denies: Abdominal Pain, Nausea, Vomiting Genitourinary: Denies: Dysuria Musculoskeletal: Reports: Back Pain Skin: Denies: Rash, Wounds Neurological: Denies: Numbness, Tingling, Focal weakness Psychiatric: Denies: Anxiety, Depression, Homicidal Ideations, Suicidal Ideations Hematologic/ Lymphatic: Reports: Anemia Patient Problems: Active and Suspected Problems (Last Reviewed 02/12/20 @ 15:[address] Fransisca Saucedo DO) Leukocytosis (Acute) Acute respiratory failure with hypoxia (Acute) Objective: The patient's most recent lab work, culture data and imaging studies have all been personally reviewed. Sputum and blood cultures are pending. - Physical Exam Vitals/I&O's: Vital Signs Temp Pulse Resp BP Pulse Ox 98.5 F 108 H 22 H 122/84 H 96 02/13/20 08:00 02/13/20 08:22 02/13/20 08:00 02/13/20 08:00 02/13/20 08:00 Oxygen Flow Rate (L/min) 6 Oxygen Delivery Method Venturi Mask Weight: 154 lb 15.759 oz Body Mass Index (BMI) 25.7 Intake and Output for Last 24 Hours 02/11/20 02/12/20 02/13/20 23:59 23:59 23:59 Intake Total 660 / 660 555 / 555 Output Total 1150 / 1150 1000 / 1000 Balance -490 / -490 -445 / -445 General: Alert, Cooperative, No apparent distress HEENT: Atraumatic, Normocephalic Oral: No Gingival or Mucosal Lesions/ Ulcerations Neck: Supple, No Nodes, Trachea Midline Lungs: Diminished, Rales, Tachypneic Cardiovascular: Regular rate, Regular Rhythm, Murmur Abdomen: Bowel Sounds Present, Soft, Non Tender Extremities: No clubbing, No cyanosis, No edema Skin: No breakdown Musculoskeletal: No Tenderness to Palpation of Joints or Extremities Lymphatic: No Cervical, Supraclavicular, or Inguinal Adenopathy Neurological: Cranial nerves II-XII grossly intact, Neuro grossly intact Psych/Mental Status: Flat Affect Labs (Last 48 Hours) 02/12/20 02/12/20 02/12/20 13:15 13:15 13:15 WBC 15.0 H RBC 3.68 L Hgb 10.0 L Hct 33.8 L MCV 91.8 MCH 27.2 MCHC 29.6 L RDW Std Deviation 49.2 H RDW Coeff of Genaro 14.8 H Plt Count 438 MPV 9.2 Immature Gran % (Auto) 3.800 H Neut % (Auto) 72.0 H Lymph % (Auto) 7.[address] [place] % (Auto) 10.5 H Eos % (Auto) 5.5 H Baso % (Auto) 0.6 Absolute Neuts (auto) 10.8 H Absolute Lymphs (auto) 1.14 Nucleated RBC % 0.1 Differential Comment SCANNED Diff Path Review May foll Platelet Estimate Hypochromasia Specimen Type Sample Site pH Bicarbonate Actual Total CO2 Base Excess O2 Saturation ABG pCO2 ABG pO2 O2 Delivery Device Liter Flow Sodium 138 Potassium 4.2 Chloride 104 Carbon Dioxide 29.0 Anion Gap 5 BUN 31 H Creatinine 1.54 H Estim Creat Clear Calc 47.70 Est GFR (MDRD) Af Amer 61 Est GFR (MDRD) Non-Af 50 L BUN/Creatinine Ratio 20.1 H Glucose 108 H Lactic Acid 1.9 Calcium 9.2 Phosphorus Magnesium Total Bilirubin Direct Bilirubin AST ALT Alkaline Phosphatase Troponin I 0.088 H B-Natriuretic Peptide Total Protein Albumin Globulin Albumin/Globulin Ratio Procalcitonin MRSA (PCR) 02/12/20 02/12/20 02/12/20 13:15 13:15 13:15 WBC RBC Hgb Hct MCV MCH MCHC RDW Std Deviation RDW Coeff of Genaro Plt Count MPV Immature Gran % (Auto) Neut % (Auto) Lymph % (Auto) [place] % (Auto) Eos % (Auto) Baso % (Auto) Absolute Neuts (auto) Absolute Lymphs (auto) Nucleated RBC % Differential Comment Diff Path Review Platelet Estimate Hypochromasia Specimen Type Sample Site pH Bicarbonate Actual Total CO2 Base Excess O2 Saturation ABG pCO2 ABG pO2 O2 Delivery Device Liter Flow Sodium Potassium Chloride Carbon Dioxide Anion Gap BUN Creatinine Estim Creat Clear Calc Est GFR (MDRD) Af Amer Est GFR (MDRD) Non-Af BUN/Creatinine Ratio Glucose Lactic Acid Calcium Phosphorus Magnesium Total Bilirubin 0.20 Direct Bilirubin 0.08 AST 49 H ALT 89 H Alkaline Phosphatase 97 Troponin I B-Natriuretic Peptide 1073.4 H Total Protein 7.3 Albumin 2.1 L Globulin 5.2 H Albumin/Globulin Ratio Procalcitonin 0.27 H MRSA (PCR) 02/12/20 02/12/20 02/12/20 17:20 17:27 17:36 WBC RBC Hgb Hct MCV MCH MCHC RDW Std Deviation RDW Coeff of Genaro Plt Count MPV Immature Gran % (Auto) Neut % (Auto) Lymph % (Auto) [place] % (Auto) Eos % (Auto) Baso % (Auto) Absolute Neuts (auto) Absolute Lymphs (auto) Nucleated RBC % Differential Comment Diff Path Review Platelet Estimate Hypochromasia Specimen Type ART Sample Site R Brach pH 7.41 Bicarbonate Actual 25.9 Total CO2 27 Base Excess 1 O2 Saturation 99 ABG pCO2 41.2 ABG pO2 118 H O2 Delivery Device CANNULA Liter Flow 6.0 Sodium Potassium Chloride Carbon Dioxide Anion Gap BUN Creatinine Estim Creat Clear Calc Est GFR (MDRD) Af Amer Est GFR (MDRD) Non-Af BUN/Creatinine Ratio Glucose Lactic Acid Calcium Phosphorus Magnesium Total Bilirubin Direct Bilirubin AST ALT Alkaline Phosphatase Troponin I 0.059 H B-Natriuretic Peptide Total Protein Albumin Globulin Albumin/Globulin Ratio Procalcitonin MRSA (PCR) Negative 02/12/20 02/13/20 02/13/20 20:06 05:57 05:57 WBC 15.7 H RBC 3.45 L Hgb 9.2 L Hct 31.8 L MCV 92.2 MCH 26.7 L MCHC 28.9 L RDW Std Deviation 49.4 H RDW Coeff of Genaro 15.0 H Plt Count 396 MPV 9.3 Immature Gran % (Auto) 2.500 H Neut % (Auto) 70.4 H Lymph % (Auto) 10.[address] % (Auto) 9.8 Eos % (Auto) 6.5 H Baso % (Auto) 0.4 Absolute Neuts (auto) 11.1 H Absolute Lymphs (auto) 1.63 Nucleated RBC % 0 Differential Comment Diff Path Review May foll Platelet Estimate ADEQUATE Hypochromasia 2+ Specimen Type Sample Site pH Bicarbonate Actual Total CO2 Base Excess O2 Saturation ABG pCO2 ABG pO2 O2 Delivery Device Liter Flow Sodium 137 Potassium 3.8 Chloride 102 Carbon Dioxide 28.0 Anion Gap 7 BUN 35 H Creatinine 1.74 H Estim Creat Clear Calc 42.22 Est GFR (MDRD) Af Amer 53 L Est GFR (MDRD) Non-Af 44 L BUN/Creatinine Ratio 20.1 H Glucose 124 H Lactic Acid Calcium 9.1 Phosphorus 3.8 Magnesium 1.6 Total Bilirubin 0.20 Direct Bilirubin AST 37 ALT 74 H Alkaline Phosphatase 83 Troponin I 0.057 H B-Natriuretic Peptide Total Protein 6.6 Albumin 2.0 L Globulin 4.6 H Albumin/Globulin Ratio 0.4 L Procalcitonin MRSA (PCR) Clinical Impression(s) from Imaging Studies Chest X-Ray 02/12/20 13:26 IMPRESSION: Worsening bilateral pneumonia, pulmonary edema, or ARDS. Electronically Signed: Bert Kuhn MD at 13:57 EST Tel , Service support , Chest CT 02/12/20 14:13 IMPRESSION: Bilateral pneumonia, pulmonary edema, or ARDS. Electronically Signed: Bert Kuhn MD at 15:03 EST Tel , Service support , Ankle X-Ray 02/12/20 19:10 IMPRESSION: Normal x-ray examination of the ankle. Electronically Signed: Bert Kuhn MD at 7:05 EST Tel , Service support , Current Medications Acetaminophen (Acetaminophen 325 Mg Tablet) 650 mg PO Q6H PRN PRN PRN Reason: Pain Score 1-10/Temp > 100.7 F Al Hydroxide/Mg Hydroxide (Mag Hydrox/Al Hydrox/Simeth 30 Ml Udc) 30 ml PO Q6H PRN PRN PRN Reason: Gastric Burning Albuterol Sulfate (Albuterol 2.5 Mg/3 Ml Vial.Neb.) 2.5 mg INHALATION Q2H PRN PRN PRN Reason: SOB/Wheezing Last Admin: 02/12/20 21:25 Dose: 2.5 mg Documented by: Amiodarone HCl (Amiodarone 200 Mg Tablet) 200 mg PO BID [facility] Stop: 02/18/20 22:01 Last Admin: 02/13/20 08:22 Dose: 200 mg Documented by: Apixaban (Apixaban 5 Mg Tablet) 5 mg PO BID [facility] Last Admin: 02/13/20 08:22 Dose: 5 mg Documented by: Aspirin (Aspirin 81 Mg Tab.Chew) 81 mg PO DAILY@0800 [facility] Last Admin: 02/13/20 08:21 Dose: 81 mg Documented by: Atorvastatin Calcium (Atorvastatin Calcium 10 Mg Tablet) 10 mg PO QHS [facility] Last Admin: 02/12/20 22:44 Dose: 10 mg Documented by: Docusate Sodium (Docusate Sodium 100 Mg Capsule) 100 mg PO BID PRN PRN PRN Reason: Constipation Famotidine (Famotidine 20 Mg Tablet) 20 mg PO DAILY [facility] Last Admin: 02/13/20 08:22 Dose: 20 mg Documented by: Furosemide (Furosemide 40 Mg/4 Ml Vial) 40 mg IV Q8 [facility] Last Admin: 02/13/20 06:05 Dose: 40 mg Documented by: Guaifenesin (Guaifenesin 10 Ml Udc (200mg/10ml)) 20 ml PO Q4H PRN PRN PRN Reason: COUGH Vancomycin IV Pharmacy to Dose (1 ea/ Sodium Chloride) 500 mls @ 250 mls/hr IV PRN PRN; Protocol PRN Reason: Rx to Dose Piperacillin Sod/Tazobactam (Sod 3.375 gm/ Sodium Chloride) 50 mls @ 12.5 mls/hr IV Q8 [facility] Last Admin: 02/13/20 06:04 Dose: 12.5 mls/hr Documented by: Vancomycin HCl 750 mg/ Sodium (Chloride) 265 mls @ 250 mls/hr IV Q12H [facility] Last Infusion: 02/13/20 03:48 Dose: Infused Documented by: Lorazepam (Lorazepam 2 Mg/Ml Syringe) 0.5 mg IV Q6H PRN PRN PRN Reason: anxiety with BIPAP Last Admin: 02/13/20 06:05 Dose: 0.5 mg Documented by: Melatonin (Melatonin 3 Mg Tablet) 3 mg PO QHS PRN PRN PRN Reason: INSOMNIA Metoprolol Tartrate (Metoprolol Tartrate 100 Mg Tablet) 100 mg PO BID [facility] Last Admin: 02/13/20 08:22 Dose: 100 mg Documented by: Ondansetron HCl (Ondansetron 4 Mg/2 Ml Vial) 4 mg IV Q8H PRN PRN PRN Reason: NAUSEA/VOMITING Prednisone (Prednisone 5 Mg Tablet) 7.5 mg PO DAILY@0800 [facility] Last Admin: 02/13/20 08:21 Dose: 7.5 mg Documented by: Sodium Chloride (0.9% Saline Lock 10 Ml Syringe) 10 - 40 ml IV UD PRN PRN Reason: SALINE FLUSH Last Admin: 02/13/20 06:05 Dose: 20 ml Documented by: Tacrolimus (Tacrolimus Anhydrous 1 Mg Capsule) 1 mg PO BID [facility] Last Admin: 02/13/20 08:22 Dose: 1 mg Documented by: Trimethoprim/Sulfamethoxazole (Smz/Tmp Ds Tablet) 0.5 tablet PO DAILYCM [facility] Last Admin: 02/13/20 08:21 Dose: 0.5 tablet Documented by: Assessment/Plan All Active Problems (Last Reviewed 02/12/20 @ 15:[address] Fransisca Saucedo, DO) TUCKER (acute kidney injury) (Resolved) Leukocytosis (Acute) Acute respiratory failure with hypoxia (Acute) a fib with rvr (Resolved) RECOMMENDATIONS: 1. Continue attempts at diuresis as tolerated by hemodynamics and renal function. 2. Obtain echocardiogram. 3. Obtain nephrology consultation. 4. Continue empiric antimicrobials, pending infectious work-up. 5. Wean supplemental oxygen to maintain saturations at or above 90%. IMPRESSIONS: 1. Acute on chronic hypoxemic respiratory failure The patient's chest x-ray findings are likely due to the sequelae of recent COVID-19 coupled with superimposed pulmonary edema. I would not expect significant improvement in the patient's chest x-ray, given that he was just discharged from the hospital with COVID-19 pneumonia. Radiographic improvement will lag behind the patient's clinical improvement. At this time, the patient will be diuresed, over concerns for decompensated heart failure. His supplemental oxygen will be weaned to maintain oxygen saturations at or above 90%. Repeat echocardiogram is currently pending. Empiric antimicrobials will also be continued, pending further infectious work-up. 2. Chronic kidney disease status post renal transplantation Given the patient's renal transplantation history along with need for volume optimization, recommend nephrology consultation to assist with medical management. The patient is on baseline immunosuppression which will need to be monitored as well. 3. Paroxysmal atrial fibrillation with RVR Continue outpatient rate/rhythm control strategy. 4. Hypertension/hyperlipidemia/elevated troponin Complicates care, management, recovery and prognosis. Continue home medications as indicated. This note was generated with [employer] software. It may contain incorrect words, spelling, and punctuation that were not noted in checking the note before signing. Inpatient E&M: 53848 Init Hosp L3
[2020-02-13] MEDS: Acetaminophen 325 MG Tablet 650 MG PO (09:08)
[2020-02-13] MEDS: Albuterol 2.5 MG/3 ML VIAL.NEB. INHALATION (12:20)
--- NOTE | 2020-02-13 15:45 | CON.PCM_ITS ---
Consultation - Renal 02/13/20 PCP/ Referring MD: Requesting physician: [] Primary care physician: Dr. Girish Mccormick MD Reason for Consultation:: Renal transplant - History of Present Illness History of Present Illness: The patient is a 54 year old M with past medical history of renal transplant and Covid pneumonia was just discharged a couple days ago and presented back with shortness of breath. He was seen by me up until the discharge today. He was discharged on 3 L/min nasal cannula with saturations at 95%. He presented back to the hospital 3 times in the last time with a saturation of 80% on 2 L/min nasal cannula. He has no other complaints no fever no chills no cough no chest pain or palpitations. He also he was also tachypneic with a respiratory rate in the upper 20s to low 30s. His creatinine has been stable at 1.54. He was given Lasix in the emergency room. He was admitted for observation. He denies chest pain dysuria hematuria. No other complaints. - Allergies Allergies: Allergies No Known Allergies Allergy (Verified 02/12/20 13:08) - Current Medications Current Medications: Current Medications Acetaminophen (Acetaminophen 325 Mg Tablet) 650 mg PO Q6H PRN PRN PRN Reason: Pain Score 1-10/Temp > 100.7 F Last Admin: 02/13/20 09:08 Dose: 650 mg Documented by: Al Hydroxide/Mg Hydroxide (Mag Hydrox/Al Hydrox/Simeth 30 Ml Udc) 30 ml PO Q6H PRN PRN PRN Reason: Gastric Burning Albuterol Sulfate (Albuterol 2.5 Mg/3 Ml Vial.Neb.) 2.5 mg INHALATION Q2H PRN PRN PRN Reason: SOB/Wheezing Last Admin: 02/13/20 12:20 Dose: 2.5 mg Documented by: Amiodarone HCl (Amiodarone 200 Mg Tablet) 200 mg PO BID [facility] Stop: 02/18/20 22:01 Last Admin: 02/13/20 08:22 Dose: 200 mg Documented by: Apixaban (Apixaban 5 Mg Tablet) 5 mg PO BID [facility] Last Admin: 02/13/20 08:22 Dose: 5 mg Documented by: Aspirin (Aspirin 81 Mg Tab.Chew) 81 mg PO DAILY@0800 [facility] Last Admin: 02/13/20 08:21 Dose: 81 mg Documented by: Atorvastatin Calcium (Atorvastatin Calcium 10 Mg Tablet) 10 mg PO QHS [facility] Last Admin: 02/12/20 22:44 Dose: 10 mg Documented by: Docusate Sodium (Docusate Sodium 100 Mg Capsule) 100 mg PO BID PRN PRN PRN Reason: Constipation Famotidine (Famotidine 20 Mg Tablet) 20 mg PO DAILY [facility] Last Admin: 02/13/20 08:22 Dose: 20 mg Documented by: Furosemide (Furosemide 40 Mg/4 Ml Vial) 40 mg IV Q8 [facility] Last Admin: 02/13/20 15:07 Dose: 40 mg Documented by: Guaifenesin (Guaifenesin 10 Ml Udc (200mg/10ml)) 20 ml PO Q4H PRN PRN PRN Reason: COUGH Vancomycin IV Pharmacy to Dose (1 ea/ Sodium Chloride) 500 mls @ 250 mls/hr IV PRN PRN; Protocol PRN Reason: Rx to Dose Piperacillin Sod/Tazobactam (Sod 3.375 gm/ Sodium Chloride) 50 mls @ 12.5 mls/hr IV Q8 [facility] Last Admin: 02/13/20 14:11 Dose: 12.5 mls/hr Documented by: Vancomycin HCl 750 mg/ Sodium (Chloride) 265 mls @ 250 mls/hr IV Q12H [facility] Last Infusion: 02/13/20 15:17 Dose: Infused Documented by: Lorazepam (Lorazepam 2 Mg/Ml Syringe) 0.5 mg IV Q6H PRN PRN PRN Reason: anxiety with BIPAP Last Admin: 02/13/20 12:05 Dose: 0.5 mg Documented by: Melatonin (Melatonin 3 Mg Tablet) 3 mg PO QHS PRN PRN PRN Reason: INSOMNIA Metoprolol Tartrate (Metoprolol Tartrate 100 Mg Tablet) 100 mg PO BID [facility] Last Admin: 02/13/20 08:22 Dose: 100 mg Documented by: Ondansetron HCl (Ondansetron 4 Mg/2 Ml Vial) 4 mg IV Q8H PRN PRN PRN Reason: NAUSEA/VOMITING Prednisone (Prednisone 5 Mg Tablet) 7.5 mg PO DAILY@0800 [facility] Last Admin: 02/13/20 08:21 Dose: 7.5 mg Documented by: Sodium Chloride (0.9% Saline Lock 10 Ml Syringe) 10 - 40 ml IV UD PRN PRN Reason: SALINE FLUSH Last Admin: 02/13/20 12:04 Dose: 10 ml Documented by: Tacrolimus (Tacrolimus Anhydrous 1 Mg Capsule) 1 mg PO BID [facility] Last Admin: 02/13/20 08:22 Dose: 1 mg Documented by: Trimethoprim/Sulfamethoxazole (Smz/Tmp Ds Tablet) [facility] Last Admin: 02/13/20 08:21 Dose: 0.5 tablet Documented by: - Past Medical History Past Medical History (Chronic Problems): Chronic Problems (Last Reviewed 02/12/20 @ 15:[address] 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 Fransisca Saucedo DO) Mother History of kidney disease History Items: No pertinent history Paternal Family History: Family History (Last Reviewed 02/12/20 @ 15:[address] Fransisca Saucedo DO) Mother History of kidney disease History Items: No pertinent history Review of Systems Eyes: Reports: - - Negative unless noted in the HPI. Patient Problems: Active and Suspected Problems (Last Reviewed 02/12/20 @ 15:[address] Fransisca Saucedo DO) Leukocytosis (Acute) Acute respiratory failure with hypoxia (Acute) - Physical Exam Vitals/I&O's: Vital Signs Temp Pulse Resp BP Pulse Ox 97.3 F L 80 15 99/69 98 02/13/20 14:00 02/13/20 15:08 02/13/20 15:08 02/13/20 15:08 02/13/20 15:08 Oxygen Flow Rate (L/min) 6 Oxygen Delivery Method Nasal Cannula Weight: 70.3 kg Body Mass Index (BMI) 25.7 Intake and Output for Last 24 Hours 02/11/20 02/12/20 02/13/20 23:59 23:59 23:59 Intake Total 660 / 660 1230 / 1230 Output Total 1150 / 1150 1700 / 1700 Balance -490 / -490 -470 / -470 General: Alert, Cooperative HEENT: Atraumatic, Normocephalic Oral: Moist Mucosa Neck: Supple, Trachea Midline Lungs: Clear to auscultation, Diminished, - - using Accessory muscles Cardiovascular: Regular rate, Regular Rhythm, Normal S1, Normal S2 Abdomen: Bowel Sounds Present, Soft Microbiology Past 72 Hours 02/12/20 22:50 Sputum, Expectorated/Coughed Gram Stain - Final Laboratory Results 02/12/20 13:15: Procalcitonin 0.27 H 02/12/20 17:20: MRSA (PCR) Negative 02/12/20 17:27: Specimen Type ART, Sample Site R Brach, pH 7.41, Bicarbonate Actual 25.9, Total CO2 27, Base Excess 1, O2 Saturation 99, ABG pCO2 41.2, ABG pO2 118 H, O2 Delivery Device CANNULA, Liter Flow 6.0 02/12/20 17:36: Troponin I 0.059 H 02/12/20 20:06: Troponin I 0.057 H 02/13/20 05:57: WBC 15.7 H, RBC 3.45 L, Hgb 9.2 L, Hct 31.8 L, MCV 92.2, MCH 26.7 L, MCHC 28.9 L, RDW Std Deviation 49.4 H, RDW Coeff of Genaro 15.0 H, Plt Count 396, MPV 9.3, Immature Gran % (Auto) 2.500 H, Neut % (Auto) 70.4 H, Lymph % (Auto) 10.4 L, [place] % (Auto) 9.8, Eos % (Auto) 6.5 H, Baso % (Auto) 0.4, Absolute Neuts (auto) 11.1 H, Absolute Lymphs (auto) 1.63, Nucleated RBC % 0, Diff Path Review June foll, Platelet Estimate ADEQUATE, Hypochromasia 2+ 02/13/20 05:57: Sodium 137, Potassium 3.8, Chloride 102, Carbon Dioxide 28.0, Anion Gap 7, BUN 35 H, Creatinine 1.74 H, Estim Creat Clear Calc 42.22, Est GFR (MDRD) Af Amer 53 L, Est GFR (MDRD) Non-Af 44 L, BUN/Creatinine Ratio 20.1 H, Glucose 124 H, Calcium 9.1, Phosphorus 3.8, Magnesium 1.6, Total Bilirubin 0.20, AST 37, ALT 74 H, Alkaline Phosphatase 83, Total Protein 6.6, Albumin 2.0 L, Globulin 4.6 H, Albumin/Globulin Ratio 0.4 L 02/13/20 05:57: Tacrolimus Pending Current Medications Acetaminophen (Acetaminophen 325 Mg Tablet) 650 mg PO Q6H PRN PRN PRN Reason: Pain Score 1-10/Temp > 100.7 F Last Admin: 02/13/20 09:08 Dose: 650 mg Documented by: Al Hydroxide/Mg Hydroxide (Mag Hydrox/Al Hydrox/Simeth 30 Ml Udc) 30 ml PO Q6H PRN PRN PRN Reason: Gastric Burning Albuterol Sulfate (Albuterol 2.5 Mg/3 Ml Vial.Neb.) 2.5 mg INHALATION Q2H PRN PRN PRN Reason: SOB/Wheezing Last Admin: 02/13/20 12:20 Dose: 2.5 mg Documented by: Amiodarone HCl (Amiodarone 200 Mg Tablet) 200 mg PO BID [facility] Stop: 02/18/20 22:01 Last Admin: 02/13/20 08:22 Dose: 200 mg Documented by: Apixaban (Apixaban 5 Mg Tablet) 5 mg PO BID [facility] Last Admin: 02/13/20 08:22 Dose: 5 mg Documented by: Aspirin (Aspirin 81 Mg Tab.Chew) 81 mg PO DAILY@0800 [facility] Last Admin: 02/13/20 08:21 Dose: 81 mg Documented by: Atorvastatin Calcium (Atorvastatin Calcium 10 Mg Tablet) 10 mg PO QHS [facility] Last Admin: 02/12/20 22:44 Dose: 10 mg Documented by: Docusate Sodium (Docusate Sodium 100 Mg Capsule) 100 mg PO BID PRN PRN PRN Reason: Constipation Famotidine (Famotidine 20 Mg Tablet) 20 mg PO DAILY [facility] Last Admin: 02/13/20 08:22 Dose: 20 mg Documented by: Furosemide (Furosemide 40 Mg/4 Ml Vial) 40 mg IV Q8 [facility] Last Admin: 02/13/20 15:07 Dose: 40 mg Documented by: Guaifenesin (Guaifenesin 10 Ml Udc (200mg/10ml)) 20 ml PO Q4H PRN PRN PRN Reason: COUGH Vancomycin IV Pharmacy to Dose (1 ea/ Sodium Chloride) 500 mls @ 250 mls/hr IV PRN PRN; Protocol PRN Reason: Rx to Dose Piperacillin Sod/Tazobactam (Sod 3.375 gm/ Sodium Chloride) 50 mls @ 12.5 mls/hr IV Q8 [facility] Last Admin: 02/13/20 14:11 Dose: 12.5 mls/hr Documented by: Vancomycin HCl 750 mg/ Sodium (Chloride) 265 mls @ 250 mls/hr IV Q12H [facility] Last Infusion: 02/13/20 15:17 Dose: Infused Documented by: Lorazepam (Lorazepam 2 Mg/Ml Syringe) 0.5 mg IV Q6H PRN PRN PRN Reason: anxiety with BIPAP Last Admin: 02/13/20 12:05 Dose: 0.5 mg Documented by: Melatonin (Melatonin 3 Mg Tablet) 3 mg PO QHS PRN PRN PRN Reason: INSOMNIA Metoprolol Tartrate (Metoprolol Tartrate 100 Mg Tablet) 100 mg PO BID [facility] Last Admin: 02/13/20 08:22 Dose: 100 mg Documented by: Ondansetron HCl (Ondansetron 4 Mg/2 Ml Vial) 4 mg IV Q8H PRN PRN PRN Reason: NAUSEA/VOMITING Prednisone (Prednisone 5 Mg Tablet) 7.5 mg PO DAILY@0800 [facility] Last Admin: 02/13/20 08:21 Dose: 7.5 mg Documented by: Sodium Chloride (0.9% Saline Lock 10 Ml Syringe) 10 - 40 ml IV UD PRN PRN Reason: SALINE FLUSH Last Admin: 02/13/20 12:04 Dose: 10 ml Documented by: Tacrolimus (Tacrolimus Anhydrous 1 Mg Capsule) 1 mg PO BID [facility] Last Admin: 02/13/20 08:22 Dose: 1 mg Documented by: Trimethoprim/Sulfamethoxazole (Smz/Tmp Ds Tablet) 0.5 tablet PO DAILYCM [facility] Last Admin: 02/13/20 08:21 Dose: 0.5 tablet Documented by: Assessment/Plan All Active Problems (Last Reviewed 02/12/20 @ 15:[address] Fransisca Saucedo DO) TUCKER (acute kidney injury) (Resolved) Leukocytosis (Acute) Acute respiratory failure with hypoxia (Acute) a fib with rvr (Resolved) Renal transplant Respiratory failure Recent COVID-19 pneumonia Renal function at baseline continue immunosuppression with Prograf and prednisone. Will check with transplant next week to see if can add back C ellCept to his immunosuppression regimen. Serum creatinine is 1.7 from 1.5 after boluses of Lasix dyspnea is considerably improved Okay for diuresis from renal standpoint. Lasix 40 mg IV every 8 for now. Avoid overdiuresis Avoid nephrotoxins The above assessment and plan was discussed at length with the patient voiced understanding and agrees to proceed with the plan as outlined above. He was g iven the opportunity to ask questions and stated that those were answered to his satisfaction. Thank you very much for allowing me to participate in the care of this patient. Please do not hesitate to call if you have any questions or concerns.
[2020-02-13] MEDS: Atorvastatin Calcium 10 MG Tablet PO (21:34)
[2020-02-14] VITALS (14 sets, daily range): BP systolic 104–124; BP diastolic 65–78; PULSE 87–105; RESP 18–24; TEMP 36.6–37.3; O2SAT 94–98
[2020-02-14] MEDS: Sodium Chloride 0.65% 1 SPRAY SPRAY.BTL 2 SPRAY NASAL (01:25)
[2020-02-14 02:08] LABS: Absolute Lymphocyte Count 2.18 X10^3/uL (0.83-4.51); Absolute Neutrophil Count 9.5 X10^3/uL (2.0-7.7); Basophil# 0.09 X10^3/uL; Basophil% 0.6 % (0-1); Eosinophils% 7.4 % (0-5); Hematocrit 30.5 % (40-54); Hemoglobin 8.8 g/dL (13.0-16.5); Lymphocyte # 2.18 X10^3/ul (4.0); Lymphocyte % 14.6 % (19-41); Mean Corp Hgb Conc 28.9 g/dL (32-36); Mean Corpuscular Hgb 26.6 pg (27.0-32.0); Mean Corpuscular Volume 92.1 fL (80-94); Mean Platelet Vol. 9.1 fl (6.2-12.0); Monocyte# 1.63 X10^3/uL; Monocyte% 10.9 % (0-10); NRBC Flagged by Analyzer 0.1 % (0-5); Neutrophil # 9.48 X10^3/uL (2.7-7.7); Neutrophil % 63.7 % (47-70); POSITIVE DIFFERENTIAL YES; Platelet Count 370 K/mm3 (150-450); RBC Distribution Width CV 14.8 % (11.6-14.6); RBC Distribution Width SD 50.1 fl (35.1-43.9); Red Blood Count 3.31 M/mm3 (4.6-6.2); White Blood Count 14.9 K/mm3 (4.4-11.0)
[2020-02-14 02:14] LABS: Differential Indicated SCAN CRITERIA MET
[2020-02-14 02:28] LABS: ALB/GLOB Ratio 0.4 RATIO (0.9-2.4); AST(SGOT) 53 U/L (15-37); Alanine Aminotransfer ALT/SGPT 95 U/L (16-61); Alkaline Phosphatase 83 U/L (45-117); Anion Gap 7 (5-15); BUN 35 mg/dL (7-18); BUN/Creat Ratio 17.4 RATIO (10-20); Calcium,Total 8.8 mg/dL (8.5-10.1); Chloride 101 mmol/L (98-107); Creatinine, Serum 2.01 mg/dL (0.70-1.30); EST Glomerular Filtration Rate 37 mL/min (>60); Est Glom Filt Rate - Afr Amer 45 mL/min (>60); Estimated Creatinine Clearance 36.55 ml/min; Globulin 5.1 g/dL (2.2-4.2); Glucose 107 mg/dL (74-106); Potassium 3.6 mmol/L (3.5-5.1); Protein, Total 7.1 g/dL (6.4-8.2); Sodium Level 139 mmol/L (136-145)
[2020-02-14 02:31] LABS: Vancomycin, Trough Level 23.5 ug/mL (5.0-15.0)
[2020-02-14 02:34] LABS: Anisocytosis 2+; Differential Comment SCANNED; Hypochromasia 2+
--- NOTE | 2020-02-14 03:57 | PCM.RX.CS ---
Consult Pharmacy has been consulted to manage selected antiobiotic: Vancomycin Type of Consult: Follow-up Labs: Sodium 139 mmol/L (136-145) 02/14/20 02:00 Potassium 3.6 mmol/L (3.5-5.1) 02/14/20 02:00 Chloride 101 mmol/L (98-107) 02/14/20 02:00 Carbon Dioxide 31.0 mmol/L (21.0-32.0) 02/14/20 02:00 Anion Gap 7 (5-15) 02/14/20 02:00 BUN 35 mg/dL (7-18) H 02/14/20 02:00 Creatinine 2.01 mg/dL (0.70-1.30) H 02/14/20 02:00 Est GFR (MDRD) Af Amer 45 mL/min (>60) L 02/14/20 02:00 Est GFR (MDRD) Non-Af 37 mL/min (>60) L 02/14/20 02:00 BUN/Creatinine Ratio 17.4 RATIO (10-20) 02/14/20 02:00 Glucose 107 mg/dL (74-106) H 02/14/20 02:00 Vancomycin Trough 23.5 ug/mL (5.0-15.0) H 02/14/20 02:00 Microbiology: Microbiology 02/12/20 22:50 Sputum, Expectorated/Coughed Gram Stain - Final Goal Trough: 15-20 mcg/mL Pharmacy Plan for Drug Dosing: Pharmacy Service will continue to monitor and adjust dosing as required. TROUGH 23.5 HOLD DOSE AND DO RANDOM LEVEL IN 24 HOURS Follow-Up Labs: Trough Vancomycin Labs to be done on [date and time ordered]: 02/14 @ 0200
[2020-02-14] MEDS: 0.9% Saline Lock 10 ML Syringe IV (05:05)
[2020-02-14] MEDS: Furosemide 40 MG/4 ML Vial IV ×2 (05:05→18:21)
[2020-02-14] MEDS: Smz/Tmp Ds Tablet 0.5 TABLET PO (10:02)
[2020-02-14] MEDS: Metoprolol Tartrate 100 MG Tablet PO ×2 (10:02→21:12)
[2020-02-14] MEDS: Amiodarone 200 MG Tablet PO ×2 (10:02→21:13)
[2020-02-14] MEDS: Tacrolimus Anhydrous 1 MG Capsule PO ×2 (10:03→21:12)
[2020-02-14] MEDS: predniSONE 5 MG Tablet 7.5 MG PO (10:03)
[2020-02-14] MEDS: APIXABAN 5 MG TABLET PO ×2 (10:03→21:12)
[2020-02-14] MEDS: Famotidine 20 MG Tablet PO (10:04)
[2020-02-14] MEDS: Aspirin 81 MG TAB.CHEW PO (10:04)
--- NOTE | 2020-02-14 12:46 | PN_ITS ---
<[employer] HUMAN RESOURCE STATISTICIAN - Last Filed: 02/14/20 13:17> Patient Problems: Active and Suspected Problems (Last Reviewed 02/12/20 @ 15:[address] Fransisca segura, DO) Leukocytosis (Acute) Acute respiratory failure with hypoxia (Acute) Subjective: Patient seen and examined. Continues to report shortness of breath. Denies cough, fever, chills. Denies other symptoms or complaints. - Physical Exam Vitals/I&O's: Vital Signs Temp Pulse Resp BP Pulse Ox 98.5 F 105 H 19 H 118/78 94 02/14/20 11:00 02/14/20 11:00 02/14/20 11:00 02/14/20 11:00 02/14/20 11:00 Oxygen Flow Rate (L/min) 6 Oxygen Delivery Method Nasal Cannula Weight: 151 lb 3.794 oz Body Mass Index (BMI) 25.7 Intake and Output for Last 24 Hours 02/12/20 02/13/20 02/14/20 23:59 23:59 23:59 Intake Total 660 / 660 1530 / 1530 516.67 / 516.67 Output Total 1150 / 1150 2024 / 2024 1250 / 1250 Balance -490 / -490 -495 / -495 -733.33 / -733.33 General: Alert, Oriented x3, Cooperative HEENT: Atraumatic, PERRLA, EOMI, Normocephalic Neck: Supple, No JVD, Negative Carotid Bruits Lungs: Diminished, Rales, Tachypneic Cardiovascular: Regular Rhythm, Murmur, Tachycardic Abdomen: Bowel Sounds Present, Soft, Non Tender Extremities: No clubbing, No cyanosis, No edema, Capillary Refill Less than 3 Seconds Skin: No rashes, No breakdown Musculoskeletal: No Tenderness to Palpation of Joints or Extremities Neurological: Cranial nerves II-XII grossly intact, Neuro grossly intact Psych/Mental Status: Flat Affect Microbiology Past 72 Hours 02/12/20 22:50 Sputum, Expectorated/Coughed Gram Stain - Final 02/12/20 22:50 Sputum, Expectorated/Coughed Respiratory Culture - Preliminary Appears to be normal respiratory chevy. Further studies to follow. Laboratory Results 02/14/20 02:00: WBC 14.9 H, RBC 3.31 L, Hgb 8.8 L, Hct 30.5 L, MCV 92.1, MCH 26.6 L, MCHC 28.9 L, RDW Std Deviation 50.1 H, RDW Coeff of [place]aro 14.8 H, Plt Count 370, MPV 9.1, Immature Gran % (Auto) 2.800 H, Neut % (Auto) 63.7, Lymph % (Auto) 14.6 L, [place] % (Auto) 10.9 H, Eos % (Auto) 7.4 H, Baso % (Auto) 0.6, Absolute Neuts (auto) 9.5 H, Absolute Lymphs (auto) 2.18, Nucleated RBC % 0.1, Differential Comment SCANNED, Diff Path Review May foll, Hypochromasia 2+, Anisocytosis 2+ 02/14/20 02:00: Sodium 139, Potassium 3.6, Chloride 101, Carbon Dioxide 31.0, Anion Gap 7, BUN 35 H, Creatinine 2.01 H, Estim Creat Clear Calc 36.55, Est GFR (MDRD) Af Amer 45 L, Est GFR (MDRD) Non-Af 37 L, BUN/Creatinine Ratio 17.4, Glucose 107 H, Calcium 8.8, Total Bilirubin 0.30, AST 53 H, ALT 95 H, Alkaline Phosphatase 83, Total Protein 7.1, Albumin 2.0 L, Globulin 5.1 H, Albumin/Globulin Ratio 0.4 L 02/14/20 02:00: Vancomycin Trough 23.5 H Current Medications Acetaminophen (Acetaminophen 325 Mg Tablet) 650 mg PO Q6H PRN PRN PRN Reason: Pain Score 1-10/Temp > 100.7 F Last Admin: 02/13/20 09:08 Dose: 650 mg Documented by: Al Hydroxide/Mg Hydroxide (Mag Hydrox/Al Hydrox/Simeth 30 Ml Udc) 30 ml PO Q6H PRN PRN PRN Reason: Gastric Burning Albuterol Sulfate (Albuterol 2.5 Mg/3 Ml Vial.Neb.) 2.5 mg INHALATION Q2H PRN PRN PRN Reason: SOB/Wheezing Last Admin: 02/13/20 12:20 Dose: 2.5 mg Documented by: Amiodarone HCl (Amiodarone 200 Mg Tablet) 200 mg PO BID [facility] Stop: 02/18/20 22:01 Last Admin: 02/14/20 10:02 Dose: 200 mg Documented by: Apixaban (Apixaban 5 Mg Tablet) 5 mg PO BID [facility] Last Admin: 02/14/20 10:03 Dose: 5 mg Documented by: Aspirin (Aspirin 81 Mg Tab.Chew) 81 mg PO DAILY@0800 [facility] Last Admin: 02/14/20 10:04 Dose: 81 mg Documented by: Atorvastatin Calcium (Atorvastatin Calcium 10 Mg Tablet) 10 mg PO QHS [facility] Last Admin: 02/13/20 21:34 Dose: 10 mg Documented by: Calamine/Phenol (Menthol/Lanolin/Calamine/Znox 113 Gm Tube) 1 applic TOPICAL BID [facility]; Protocol Docusate Sodium (Docusate Sodium 100 Mg Capsule) 100 mg PO BID PRN PRN PRN Reason: Constipation Famotidine (Famotidine 20 Mg Tablet) 20 mg PO DAILY [facility] Last Admin: 02/14/20 10:04 Dose: 20 mg Documented by: Furosemide (Furosemide 40 Mg/4 Ml Vial) 40 mg IV BIDLX [facility] Guaifenesin (Guaifenesin 10 Ml Udc (200mg/10ml)) 20 ml PO Q4H PRN PRN PRN Reason: COUGH Vancomycin IV Pharmacy to Dose (1 ea/ Sodium Chloride) 500 mls @ 250 mls/hr IV PRN PRN; Protocol PRN Reason: Rx to Dose Piperacillin Sod/Tazobactam (Sod 3.375 gm/ Sodium Chloride) 50 mls @ 12.5 mls/hr IV Q8 [facility] Last Infusion: 02/14/20 10:02 Dose: Infused Documented by: Lorazepam (Lorazepam 2 Mg/Ml Syringe) 0.5 mg IV Q6H PRN PRN PRN Reason: anxiety with BIPAP Last Admin: 02/13/20 12:05 Dose: 0.5 mg Documented by: Melatonin (Melatonin 3 Mg Tablet) 3 mg PO QHS PRN PRN PRN Reason: INSOMNIA Metoprolol Tartrate (Metoprolol Tartrate 100 Mg Tablet) 100 mg PO BID [facility] Last Admin: 02/14/20 10:02 Dose: 100 mg Documented by: Ondansetron HCl (Ondansetron 4 Mg/2 Ml Vial) 4 mg IV Q8H PRN PRN PRN Reason: NAUSEA/VOMITING Prednisone (Prednisone 5 Mg Tablet) 7.5 mg PO DAILY@0800 [facility] Last Admin: 02/14/20 10:03 Dose: 7.5 mg Documented by: Sodium Chloride (0.9% Saline Lock 10 Ml Syringe) 10 - 40 ml IV UD PRN PRN Reason: SALINE FLUSH Last Admin: 02/14/20 05:05 Dose: 10 ml Documented by: Sodium Chloride (Sodium Chloride 0.65% 1 [place].Btl) 2 spray NASAL TID PRN PRN PRN Reason: NASAL DRYNESS Last Admin: 02/14/20 01:25 Dose: 2 spray Documented by: Tacrolimus (Tacrolimus Anhydrous 1 Mg Capsule) 1 mg PO BID [facility] Last Admin: 02/14/20 10:03 Dose: 1 mg Documented by: Trimethoprim/Sulfamethoxazole (Smz/Tmp Ds Tablet) 0.5 tablet PO DAILYCM [facility] Last Admin: 02/14/20 10:02 Dose: 0.5 tablet Documented by: Medical Necessity - Tobacco Use Smoking Status: Former smoker Tobacco Use: Cigarettes - smoked up until he was admitted with COVID about 1ppd Assessment/Plan All Active Problems (Last Reviewed 02/12/20 @ 15:[address] Fransisca Saucedo, DO) TUCKER (acute kidney injury) (Resolved) Leukocytosis (Acute) Acute respiratory failure with hypoxia (Acute) a fib with rvr (Resolved) 1. Acute on chronic hypoxic respiratory failure-multifactorial secondary to recent COVID-19 pneumonitis, questionable pulmonary fibrosis and acute heart failure with preserved ejection fraction. Pulmonary medicine following. On IV antibiotics empirically. Sputum culture shows normal respiratory chevy. Continue supplement oxygen to maintain O2 at above 90%. Continue IV diuresis. Strict I&O. Daily weight. Echocardiogram demonstrates an EF of 70%. As needed albuterol aerosol. 2. Paroxysmal atrial fibrillation with RVR-rate now stable. Continue amiodarone, metoprolol, Eliquis. 3. Abnormal troponin-suspect demand ischemia as result of #1/#2. Enzymes trended down. Echocardiogram demonstrates an EF of 70%, stage II diastolic dysfunction, mild aortic valve insufficiency. 4. Mild transaminitis-stable, recommend outpatient follow-up. 5. Chronic kidney disease stage III-history of renal transplant 2005. Continue Prograf, prednisone, Bactrim. Nephrology consulted. 6. Hypertension-stable, continue metoprolol. 7. Hyperlipidemia-continue statin. 8. GERD-continue H2 blockers. 9. Chronic normocytic anemia-stable, trend CBC. DVT prophylaxis- Eliquis Discharge planning: Patient recently discharged to [facility], plan to return at discharge. This patient was seen by ZAYRA Ortiz under the supervision of Dr. Tineo. <Robert Tineo - Last Filed: 02/14/20 15:01> - Physical Exam Vitals/I&O's: Vital Signs Temp Pulse Resp BP Pulse Ox 98.5 F 105 H 19 H 118/78 94 02/14/20 11:00 02/14/20 11:00 02/14/20 11:00 02/14/20 11:00 02/14/20 11:00 Oxygen Flow Rate (L/min) 6 Oxygen Delivery Method Nasal Cannula Weight: 68.6 kg Body Mass Index (BMI) 25.7 Intake and Output for Last 24 Hours 02/12/20 02/13/20 02/14/20 23:59 23:59 23:59 Intake Total 660 / 660 1530 / 1530 516.67 / 516.67 Output Total 1150 / 1150 2024 / 2024 1250 / 1250 Balance -490 / -490 -495 / -495 -733.33 / -733.33 Microbiology Past 72 Hours 02/12/20 13:15 Blood Culture (Wb) - Right Forearm Blood Culture - Preliminary No growth in 48 hours. 02/12/20 22:50 Sputum, Expectorated/Coughed Gram Stain - Final 02/12/20 22:50 Sputum, Expectorated/Coughed Respiratory Culture - Preliminary Appears to be normal respiratory chevy. Further studies to follow. Laboratory Results 02/14/20 02:00: WBC 14.9 H, RBC 3.31 L, Hgb 8.8 L, Hct 30.5 L, MCV 92.1, MCH 26.6 L, MCHC 28.9 L, RDW Std Deviation 50.1 H, RDW Coeff of [place] 14.8 H, Plt Count 370, MPV 9.1, Immature Gran % (Auto) 2.800 H, Neut % (Auto) 63.7, Lymph % (Auto) 14.6 L, [place] % (Auto) 10.9 H, Eos % (Auto) 7.4 H, Baso % (Auto) 0.6, Absolute Neuts (auto) 9.5 H, Absolute Lymphs (auto) 2.18, Nucleated RBC % 0.1, Differential Comment SCANNED, Diff Path Review May foll, Hypochromasia 2+, Anisocytosis 2+ 02/14/20 02:00: Sodium 139, Potassium 3.6, Chloride 101, Carbon Dioxide 31.0, Anion Gap 7, BUN 35 H, Creatinine 2.01 H, Estim Creat Clear Calc 36.55, Est GFR (MDRD) Af Amer 45 L, Est GFR (MDRD) Non-Af 37 L, BUN/Creatinine Ratio 17.4, Glucose 107 H, Calcium 8.8, Total Bilirubin 0.30, AST 53 H, ALT 95 H, Alkaline Phosphatase 83, Total Protein 7.1, Albumin 2.0 L, Globulin 5.1 H, Albumin/Globulin Ratio 0.4 L 02/14/20 02:00: Vancomycin Trough 23.5 H Current Medications Acetaminophen (Acetaminophen 325 Mg Tablet) 650 mg PO Q6H PRN PRN PRN Reason: Pain Score 1-10/Temp > 100.7 F Last Admin: 02/13/20 09:08 Dose: 650 mg Documented by: Al Hydroxide/Mg Hydroxide (Mag Hydrox/Al Hydrox/Simeth 30 Ml Udc) 30 ml PO Q6H PRN PRN PRN Reason: Gastric Burning Albuterol Sulfate (Albuterol 2.5 Mg/3 Ml Vial.Neb.) 2.5 mg INHALATION Q2H PRN PRN PRN Reason: SOB/Wheezing Last Admin: 02/13/20 12:20 Dose: 2.5 mg Documented by: Amiodarone HCl (Amiodarone 200 Mg Tablet) 200 mg PO BID [facility] Stop: 02/18/20 22:01 Last Admin: 02/14/20 10:02 Dose: 200 mg Documented by: Apixaban (Apixaban 5 Mg Tablet) 5 mg PO BID [facility] Last Admin: 02/14/20 10:03 Dose: 5 mg Documented by: Aspirin (Aspirin 81 Mg Tab.Chew) 81 mg PO DAILY@0800 [facility] Last Admin: 02/14/20 10:04 Dose: 81 mg Documented by: Atorvastatin Calcium (Atorvastatin Calcium 10 Mg Tablet) 10 mg PO QHS [facility] Last Admin: 02/13/20 21:34 Dose: 10 mg Documented by: Calamine/Phenol (Menthol/Lanolin/Calamine/Znox 113 Gm Tube) 1 applic TOPICAL BID [facility]; Protocol Last Admin: 02/14/20 13:31 Dose: 1 applicatio Documented by: Docusate Sodium (Docusate Sodium 100 Mg Capsule) 100 mg PO BID PRN PRN PRN Reason: Constipation Famotidine (Famotidine 20 Mg Tablet) 20 mg PO DAILY [facility] Last Admin: 02/14/20 10:04 Dose: 20 mg Documented by: Furosemide (Furosemide 40 Mg/4 Ml Vial) 40 mg IV BIDLX [facility] Guaifenesin (Guaifenesin 10 Ml Udc (200mg/10ml)) 20 ml PO Q4H PRN PRN PRN Reason: COUGH Vancomycin IV Pharmacy to Dose (1 ea/ Sodium Chloride) 500 mls @ 250 mls/hr IV PRN PRN; Protocol PRN Reason: Rx to Dose Piperacillin Sod/Tazobactam (Sod 3.375 gm/ Sodium Chloride) 50 mls @ 12.5 mls/hr IV Q8 [facility] Last Admin: 02/14/20 13:32 Dose: 12.5 mls/hr Documented by: Lorazepam (Lorazepam 2 Mg/Ml Syringe) 0.5 mg IV Q6H PRN PRN PRN Reason: anxiety with BIPAP Last Admin: 02/13/20 12:05 Dose: 0.5 mg Documented by: Melatonin (Melatonin 3 Mg Tablet) 3 mg PO QHS PRN PRN PRN Reason: INSOMNIA Metoprolol Tartrate (Metoprolol Tartrate 100 Mg Tablet) 100 mg PO BID [facility] Last Admin: 02/14/20 10:02 Dose: 100 mg Documented by: Ondansetron HCl (Ondansetron 4 Mg/2 Ml Vial) 4 mg IV Q8H PRN PRN PRN Reason: NAUSEA/VOMITING Prednisone (Prednisone 5 Mg Tablet) 7.5 mg PO DAILY@0800 [facility] Last Admin: 02/14/20 10:03 Dose: 7.5 mg Documented by: Sodium Chloride (0.9% Saline Lock 10 Ml Syringe) 10 - 40 ml IV UD PRN PRN Reason: SALINE FLUSH Last Admin: 02/14/20 05:05 Dose: 10 ml Documented by: Sodium Chloride (Sodium Chloride 0.65% 1 [place].Btl) 2 spray NASAL TID PRN PRN PRN Reason: NASAL DRYNESS Last Admin: 02/14/20 01:25 Dose: 2 spray Documented by: Tacrolimus (Tacrolimus Anhydrous 1 Mg Capsule) 1 mg PO BID [facility] Last Admin: 02/14/20 10:03 Dose: 1 mg Documented by: Trimethoprim/Sulfamethoxazole (Smz/Tmp [facility]s [facility]) [facility] Last Admin: 02/14/20 10:02 Dose: 0.5 tablet Documented by: Assessment/Plan This patient was seen in conjunction with ZAYRA Ortiz . I have independently interviewed and examined the patient and reviewed pertinent historical, laboratory, and other data. Please refer to ZAYRA Ortiz note for details of this patient's presentation, findings, and recommendations. I have reviewed ZAYRA Ortiz note and concur with documented findings. In brief, Patient is a 54-year-old male discharge from the hospital on 02/10/2020 after prolonged hospitalization from 01/18/2020 to 02/10/2020 with COVID-19 pneumonia and subsequent respiratory failure who presented back to the emergency department 2 days after her discharge with shortness of breath Physical Examination: GENERAL: cooperative HEENT: Atraumatic; EYES; Anicteric, Normal Conjunctiva NECK; supple, normal thyroid, RESPIRATORY: Diminished to auscultation CARDIOVASCULAR: Irregular S1-S2, tachycardic GI: soft, normoactive bowel sounds, : No Renal angle tenderness; EXTREMITIES: No edema, no clubbing, MUSCULOSKELETAL: no muscle waisting NEURO: Awake; no lateralizing signs. SKIN: No Rash PSYCH; Flat affect Assessment: Patient is a 54-year-old male discharge from the hospital on 02/10/2020 after prolonged hospitalization from 01/18/2020 to 02/10/2020 with COVID-19 pneumonia and subsequent respiratory failure who presented back to the emergency department 2 days after her discharge with shortness of breath 1. Acute on chronic hypoxic respiratory failure 2. Acute congestive heart failure preserved ejection fraction 3. Elevated troponin -secondary to demand ischemia from above 4. Mild transaminitis 5. 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 Anemia- Secondary to chronic disorder 7. Paroxysmal atrial fibrillation 8. Dyslipidemia 9. GERD 10. DVT prophylaxis Recommendations: 1. I have discussed the results of my overview and impressions with the patient 2. Options for management were reviewed Inpatient E&M: 25905 [facility] L3
[2020-02-14] MEDS: Menthol/Lanolin/Calamine/Znox 113 GM Tube 1 APPLIC TOPICAL ×2 (13:31→21:12)
--- NOTE | 2020-02-14 17:51 | PN.RENAL_ITS ---
Patient Problems: Active and Suspected Problems (Last Reviewed 02/12/20 @ 15:[address] Fransisca Saucedo, DO) Leukocytosis (Acute) Acute respiratory failure with hypoxia (Acute) Subjective: States that shortness of breath is better and has no other complaints - Physical Exam Vitals/I&O's: Vital Signs Temp Pulse Resp BP Pulse Ox 99.1 F 98 18 113/73 97 02/14/20 16:30 02/14/20 16:30 02/14/20 16:30 02/14/20 16:30 02/14/20 16:30 Oxygen Flow Rate (L/min) 5 Oxygen Delivery Method Nasal Cannula Weight: 68.6 kg Body Mass Index (BMI) 25.7 Intake and Output for Last 24 Hours 02/12/20 02/13/20 02/14/20 23:59 23:59 23:59 Intake Total 660 / 660 1530 / 1530 516.67 / 516.67 Output Total 1150 / 1150 2024 / 2024 1250 / 1250 Balance -490 / -490 -495 / -495 -733.33 / -733.33 General: Alert, Cooperative HEENT: Atraumatic, EOMI Oral: Moist Mucosa Neck: Supple, Trachea Midline Lungs: Clear to auscultation Cardiovascular: Normal S1, Normal S2 Abdomen: Bowel Sounds Present, Soft Extremities: No edema Microbiology Past 72 Hours 02/12/20 13:15 Blood Culture (Wb) - Right Forearm Blood Culture - Preliminary No growth in 48 hours. 02/12/20 22:50 Sputum, Expectorated/Coughed Gram Stain - Final 02/12/20 22:50 Sputum, Expectorated/Coughed Respiratory Culture - Preliminary Appears to be normal respiratory chevy. Further studies to follow. Laboratory Results 02/14/20 02:00: WBC 14.9 H, RBC 3.31 L, Hgb 8.8 L, Hct 30.5 L, MCV 92.1, MCH 26.6 L, MCHC 28.9 L, RDW Std Deviation 50.1 H, RDW Coeff of [place]aro 14.8 H, Plt Count 370, MPV 9.1, Immature Gran % (Auto) 2.800 H, Neut % (Auto) 63.7, Lymph % (Auto) 14.6 L, [place] % (Auto) 10.9 H, Eos % (Auto) 7.4 H, Baso % (Auto) 0.6, Absolute Neuts (auto) 9.5 H, Absolute Lymphs (auto) 2.18, Nucleated RBC % 0.1, Differential Comment SCANNED, Diff Path Review May foll, Hypochromasia 2+, Anisocytosis 2+ 02/14/20 02:00: Sodium 139, Potassium 3.6, Chloride 101, Carbon Dioxide 31.0, Anion Gap 7, BUN 35 H, Creatinine 2.01 H, Estim Creat Clear Calc 36.55, Est GFR (MDRD) Af Amer 45 L, Est GFR (MDRD) Non-Af 37 L, BUN/Creatinine Ratio 17.4, Glucose 107 H, Calcium 8.8, Total Bilirubin 0.30, AST 53 H, ALT 95 H, Alkaline Phosphatase 83, Total Protein 7.1, Albumin 2.0 L, Globulin 5.1 H, Albumin/Globulin Ratio 0.4 L 02/14/20 02:00: Vancomycin Trough 23.5 H Current Medications Acetaminophen (Acetaminophen 325 Mg Tablet) 650 mg PO Q6H PRN PRN PRN Reason: Pain Score 1-10/Temp > 100.7 F Last Admin: 02/13/20 09:08 Dose: 650 mg Documented by: Al Hydroxide/Mg Hydroxide (Mag Hydrox/Al Hydrox/Simeth 30 Ml Udc) 30 ml PO Q6H PRN PRN PRN Reason: Gastric Burning Albuterol Sulfate (Albuterol 2.5 Mg/3 Ml Vial.Neb.) 2.5 mg INHALATION Q2H PRN PRN PRN Reason: SOB/Wheezing Last Admin: 02/13/20 12:20 Dose: 2.5 mg Documented by: Amiodarone HCl (Amiodarone 200 Mg Tablet) 200 mg PO BID [facility] Stop: 02/18/20 22:01 Last Admin: 02/14/20 10:02 Dose: 200 mg Documented by: Apixaban (Apixaban 5 Mg Tablet) 5 mg PO BID [facility] Last Admin: 02/14/20 10:03 Dose: 5 mg Documented by: Aspirin (Aspirin 81 Mg Tab.Chew) 81 mg PO DAILY@0800 [facility] Last Admin: 02/14/20 10:04 Dose: 81 mg Documented by: Atorvastatin Calcium (Atorvastatin Calcium 10 Mg Tablet) 10 mg PO QHS [facility] Last Admin: 02/13/20 21:34 Dose: 10 mg Documented by: Calamine/Phenol (Menthol/Lanolin/Calamine/Znox 113 Gm Tube) 1 applic TOPICAL BID [facility]; Protocol Last Admin: 02/14/20 13:31 Dose: 1 applicatio Documented by: Docusate Sodium (Docusate Sodium 100 Mg Capsule) 100 mg PO BID PRN PRN PRN Reason: Constipation Famotidine (Famotidine 20 Mg Tablet) 20 mg PO DAILY [facility] Last Admin: 02/14/20 10:04 Dose: 20 mg Documented by: Furosemide (Furosemide 40 Mg/4 Ml Vial) 40 mg IV BIDLX [facility] Guaifenesin (Guaifenesin 10 Ml Udc (200mg/10ml)) 20 ml PO Q4H PRN PRN PRN Reason: COUGH Vancomycin IV Pharmacy to Dose (1 ea/ Sodium Chloride) 500 mls @ 250 mls/hr IV PRN PRN; Protocol PRN Reason: Rx to Dose Piperacillin Sod/Tazobactam (Sod 3.375 gm/ Sodium Chloride) 50 mls @ 12.5 mls/hr IV Q8 [facility] Last Admin: 02/14/20 13:32 Dose: 12.5 mls/hr Documented by: Lorazepam (Lorazepam 2 Mg/Ml Syringe) 0.5 mg IV Q6H PRN PRN PRN Reason: anxiety with BIPAP Last Admin: 02/13/20 12:05 Dose: 0.5 mg Documented by: Melatonin (Melatonin 3 Mg Tablet) 3 mg PO QHS PRN PRN PRN Reason: INSOMNIA Metoprolol Tartrate (Metoprolol Tartrate 100 Mg Tablet) 100 mg PO BID [facility] Last Admin: 02/14/20 10:02 Dose: 100 mg Documented by: Ondansetron HCl (Ondansetron 4 Mg/2 Ml Vial) 4 mg IV Q8H PRN PRN PRN Reason: NAUSEA/VOMITING Prednisone (Prednisone 5 Mg Tablet) 7.5 mg PO DAILY@0800 [facility] Last Admin: 02/14/20 10:03 Dose: 7.5 mg Documented by: Sodium Chloride (0.9% Saline Lock 10 Ml Syringe) 10 - 40 ml IV UD PRN PRN Reason: SALINE FLUSH Last Admin: 02/14/20 05:05 Dose: 10 ml Documented by: Sodium Chloride (Sodium Chloride 0.65% 1 [place].Btl) 2 spray NASAL TID PRN PRN PRN Reason: NASAL DRYNESS Last Admin: 02/14/20 01:25 Dose: 2 spray Documented by: Tacrolimus (Tacrolimus Anhydrous 1 Mg Capsule) 1 mg PO BID [facility] Last Admin: 02/14/20 10:03 Dose: 1 mg Documented by: Trimethoprim/Sulfamethoxazole (Smz/Tmp Ds Tablet) 0.5 tablet PO DAILYCM [facility] Last Admin: 02/14/20 10:02 Dose: 0.5 tablet Documented by: Medical Necessity - Tobacco Use Smoking Status: Former smoker Tobacco Use: Cigarettes - smoked up until he was admitted with COVID about 1ppd Assessment/Plan All Active Problems (Last Reviewed 02/12/20 @ 15:[address] Fransisca Saucedo, DO) TUCKER (acute kidney injury) (Resolved) Leukocytosis (Acute) Acute respiratory failure with hypoxia (Acute) a fib with rvr (Resolved) Renal transplant Respiratory failure Recent COVID-19 pneumonia Renal function at baseline continue immunosuppression with Prograf and prednisone. Will check with transplant next week to see if can add back CellCept to his immunosuppression regimen. Serum creatinine is 2.0 from 1.7 from 1.5 after boluses of Lasix dyspnea is considerably improved but still present. Reevaluate diuretics dose on a daily basis. The Lasix dose was decreased to twice daily from 3 times daily f/u TAc level ordered on admission Avoid overdiuresis Avoid nephrotoxins
[2020-02-14] MEDS: Atorvastatin Calcium 10 MG Tablet PO (21:13)
[2020-02-15] VITALS (15 sets, daily range): BP systolic 108–134; BP diastolic 68–80; PULSE 77–94; RESP 19–32; TEMP 36.6–37.3; O2SAT 93–96; BMI 24.9
[2020-02-15] MEDS: Acetaminophen 325 MG Tablet 650 MG PO ×2 (00:49→09:30)
[2020-02-15] MEDS: Sodium Chloride 0.65% 1 SPRAY SPRAY.BTL 2 SPRAY NASAL ×2 (00:50→21:12)
[2020-02-15 02:19] LABS: Absolute Lymphocyte Count 1.59 X10^3/uL (0.83-4.51); Absolute Neutrophil Count 8.8 X10^3/uL (2.0-7.7); Basophil# 0.08 X10^3/uL; Basophil% 0.6 % (0-1); Eosinophil# 0.74 X10^3/uL; Eosinophils% 5.7 % (0-5); Hematocrit 29.4 % (40-54); Hemoglobin 8.7 g/dL (13.0-16.5); Lymphocyte # 1.59 X10^3/ul (4.0); Lymphocyte % 12.2 % (19-41); Mean Corp Hgb Conc 29.6 g/dL (32-36); Mean Corpuscular Volume 91.3 fL (80-94); Mean Platelet Vol. 9.2 fl (6.2-12.0); Monocyte# 1.57 X10^3/uL; NRBC Flagged by Analyzer 0 % (0-5); Neutrophil # 8.81 X10^3/uL (2.7-7.7); Neutrophil % 67.7 % (47-70); POSITIVE DIFFERENTIAL YES; Platelet Count 346 K/mm3 (150-450); RBC Distribution Width CV 14.6 % (11.6-14.6); RBC Distribution Width SD 48.7 fl (35.1-43.9); Red Blood Count 3.22 M/mm3 (4.6-6.2)
[2020-02-15 02:21] LABS: Differential Indicated SCAN CRITERIA MET
[2020-02-15 02:38] LABS: Differential Comment SCANNED
[2020-02-15 02:41] LABS: Anisocytosis 1+; Hypochromasia 1+
[2020-02-15 02:42] LABS: Macrocytosis RARE; Microcytosis RARE
[2020-02-15 02:58] LABS: Vancomycin, Random Level 14.2 ug/mL (0.0-15.0)
[2020-02-15 03:00] LABS: ALB/GLOB Ratio 0.4 RATIO (0.9-2.4); AST(SGOT) 75 U/L (15-37); Alanine Aminotransfer ALT/SGPT 124 U/L (16-61); Albumin, Serum 1.9 g/dL (3.2-5.0); Alkaline Phosphatase 74 U/L (45-117); Anion Gap 6 (5-15); BUN 34 mg/dL (7-18); BUN/Creat Ratio 18.7 RATIO (10-20); Chloride 104 mmol/L (98-107); Creatinine, Serum 1.82 mg/dL (0.70-1.30); EST Glomerular Filtration Rate 41 mL/min (>60); Est Glom Filt Rate - Afr Amer 50 mL/min (>60); Estimated Creatinine Clearance 40.36 ml/min; Globulin 4.7 g/dL (2.2-4.2); Glucose 132 mg/dL (74-106); Protein, Total 6.6 g/dL (6.4-8.2); Sodium Level 139 mmol/L (136-145)
--- NOTE | 2020-02-15 03:40 | PCM.RX.CS ---
Consult Pharmacy has been consulted to manage selected antiobiotic: Vancomycin Type of Consult: Follow-up Labs: Sodium 139 mmol/L (136-145) 02/15/20 02:08 Potassium 4.0 mmol/L (3.5-5.1) 02/15/20 02:08 Chloride 104 mmol/L (98-107) 02/15/20 02:08 Carbon Dioxide 29.0 mmol/L (21.0-32.0) 02/15/20 02:08 Anion Gap 6 (5-15) 02/15/20 02:08 BUN 34 mg/dL (7-18) H 02/15/20 02:08 Creatinine 1.82 mg/dL (0.70-1.30) H 02/15/20 02:08 Est GFR (MDRD) Af Amer 50 mL/min (>60) L 02/15/20 02:08 Est GFR (MDRD) Non-Af 41 mL/min (>60) L 02/15/20 02:08 BUN/Creatinine Ratio 18.7 RATIO (10-20) 02/15/20 02:08 Glucose 132 mg/dL (74-106) H 02/15/20 02:08 Vancomycin Trough 23.5 ug/mL (5.0-15.0) H 02/14/20 02:00 Random Vancomycin 14.2 ug/mL (0.0-15.0) 02/15/20 02:08 Microbiology: Microbiology 02/12/20 13:15 Blood Culture (Wb) - Right Forearm Blood Culture - Preliminary No growth in 48 hours. 02/12/20 22:50 Sputum, Expectorated/Coughed Gram Stain - Final 02/12/20 22:50 Sputum, Expectorated/Coughed Respiratory Culture - Preliminary Appears to be normal respiratory chevy. Further studies to follow. Goal Trough: 15-20 mcg/mL Pharmacy Plan for Drug Dosing: Pharmacy Service will continue to monitor and adjust dosing as required. RANDOM LEVEL 14.2 START 750MG Q24H DRAW TROUGH BEFORE 2ND DOSE PER [facility] Follow-Up Labs: Trough Vancomycin Labs to be done on [date and time ordered]: 02/15 @ [id number]
--- NOTE | 2020-02-15 06:47 | PN_ITS ---
Patient Problems: Active and Suspected Problems (Last Reviewed 02/12/20 @ 15:[address] Fransisca aSucedo, DO) Leukocytosis (Acute) Acute respiratory failure with hypoxia (Acute) Subjective: The patient was seen and examined at the bedside this morning. Events from the last 24 hours have been reviewed. The patient is currently afebrile, hemodynamically stable and maintaining appropriate oxygen saturations on 3 L/min via nasal cannula. Creatinine is stable at 1.82. Tacrolimus level is still pending. The patient remains systemically anticoagulated on Eliquis and is currently receiving twice daily IV Lasix, along with antimicrobials. He is currently documented to be overall net -2.3 L for the hospital admission. His weight is down accordingly. The patient does report interval improvement in his breathing quality since had been admitted to the hospital. Objective: The patient's most recent lab work, culture data and imaging studies have all been personally reviewed. Surface echocardiogram revealed moderate concentric LVH with stage II diastolic dysfunction and an ejection fraction of 70%. Infectious work-up has been unrevealing. - Physical Exam Vitals/I&O's: Vital Signs Temp Pulse Resp BP Pulse Ox 98.8 F 82 20 H 108/71 94 02/15/20 03:10 02/15/20 03:10 02/15/20 03:10 02/15/20 03:10 02/15/20 03:10 Oxygen Flow Rate (L/min) 3 Oxygen Delivery Method Nasal Cannula Weight: 149 lb 11.2 oz Body Mass Index (BMI) 25.7 Intake and Output for Last 24 Hours 02/13/20 02/14/20 02/15/20 23:59 23:59 23:59 Intake Total 1530 / 1530 866.67 / 866.67 515 / 515 Output Total 2024 / 2024 2350 / 2350 375 / 375 Balance -495 / -495 -1483.33 / -1483.33 140 / 140 General: Alert, Cooperative, No apparent distress HEENT: Atraumatic, PERRLA, Normocephalic Oral: Moist Mucosa, No Gingival or Mucosal Lesions/ Ulcerations Neck: Supple, No Nodes, Trachea Midline Lungs: Diminished, Rales Cardiovascular: Regular rate, Regular Rhythm, Murmur Abdomen: Bowel Sounds Present, Soft, Non Tender Extremities: No clubbing, No cyanosis, No edema Skin: No breakdown Musculoskeletal: No Tenderness to Palpation of Joints or Extremities Lymphatic: No Cervical, Supraclavicular, or Inguinal Adenopathy Neurological: Cranial nerves II-XII grossly intact, Neuro grossly intact Psych/Mental Status: Flat Affect Labs (Last 48 Hours) 02/13/20 02/13/20 02/13/20 05:57 05:57 05:57 WBC 15.7 H RBC 3.45 L Hgb 9.2 L Hct 31.8 L MCV 92.2 MCH 26.7 L MCHC 28.9 L RDW Std Deviation 49.4 H RDW Coeff of Genaro 15.0 H Plt Count 396 MPV 9.3 Immature Gran % (Auto) 2.500 H Neut % (Auto) 70.4 H Lymph % (Auto) 10.4 L Geary % (Auto) 9.8 Eos % (Auto) 6.5 H Baso % (Auto) 0.4 Absolute Neuts (auto) 11.1 H Absolute Lymphs (auto) 1.63 Nucleated RBC % 0 Differential Comment Diff Path Review May foll Platelet Estimate ADEQUATE Hypochromasia 2+ Anisocytosis Microcytosis Macrocytosis Sodium 137 Potassium 3.8 Chloride 102 Carbon Dioxide 28.0 Anion Gap 7 BUN 35 H Creatinine 1.74 H Estim Creat Clear Calc 42.22 Est GFR (MDRD) Af Amer 53 L Est GFR (MDRD) Non-Af 44 L BUN/Creatinine Ratio 20.1 H Glucose 124 H Calcium 9.1 Phosphorus 3.8 Magnesium 1.6 Total Bilirubin 0.20 AST 37 ALT 74 H Alkaline Phosphatase 83 Total Protein 6.6 Albumin 2.0 L Globulin 4.6 H Albumin/Globulin Ratio 0.4 L Vancomycin Trough Random Vancomycin Tacrolimus Pending 02/14/20 02/14/20 02/14/20 02:00 02:00 02:00 WBC 14.9 H RBC 3.31 L Hgb 8.8 L Hct 30.5 L MCV 92.1 MCH 26.6 L MCHC 28.9 L RDW Std Deviation 50.1 H RDW Coeff of Genaro 14.8 H Plt Count 370 MPV 9.1 Immature Gran % (Auto) 2.800 H Neut % (Auto) 63.7 Lymph % (Auto) 14.6 L Geary % (Auto) 10.9 H Eos % (Auto) 7.4 H Baso % (Auto) 0.6 Absolute Neuts (auto) 9.5 H Absolute Lymphs (auto) 2.18 Nucleated RBC % 0.1 Differential Comment SCANNED Diff Path Review May foll Platelet Estimate Hypochromasia 2+ Anisocytosis 2+ Microcytosis Macrocytosis Sodium 139 Potassium 3.6 Chloride 101 Carbon Dioxide 31.0 Anion Gap 7 BUN 35 H Creatinine 2.01 H Estim Creat Clear Calc 36.55 Est GFR (MDRD) Af Amer 45 L Est GFR (MDRD) Non-Af 37 L BUN/Creatinine Ratio 17.4 Glucose 107 H Calcium 8.8 Phosphorus Magnesium Total Bilirubin 0.30 AST 53 H ALT 95 H Alkaline Phosphatase 83 Total Protein 7.1 Albumin 2.0 L Globulin 5.1 H Albumin/Globulin Ratio 0.4 L Vancomycin Trough 23.5 H Random Vancomycin Tacrolimus 02/15/20 02/15/20 02/15/20 02:08 02:08 02:08 WBC 13.0 H RBC 3.22 L Hgb 8.7 L Hct 29.4 L MCV 91.3 MCH 27.0 MCHC 29.6 L RDW Std Deviation 48.7 H RDW Coeff of Genaro 14.6 Plt Count 346 MPV 9.2 Immature Gran % (Auto) 1.800 H Neut % (Auto) 67.7 Lymph % (Auto) 12.2 L Geary % (Auto) 12.0 H Eos % (Auto) 5.7 H Baso % (Auto) 0.6 Absolute Neuts (auto) 8.8 H Absolute Lymphs (auto) 1.59 Nucleated RBC % 0 Differential Comment SCANNED Diff Path Review May foll Platelet Estimate Hypochromasia 1+ Anisocytosis 1+ Microcytosis RARE Macrocytosis RARE Sodium 139 Potassium 4.0 Chloride 104 Carbon Dioxide 29.0 Anion Gap 6 BUN 34 H Creatinine 1.82 H Estim Creat Clear Calc 40.36 Est GFR (MDRD) Af Amer 50 L Est GFR (MDRD) Non-Af 41 L BUN/Creatinine Ratio 18.7 Glucose 132 H Calcium 9.0 Phosphorus Magnesium Total Bilirubin 0.20 AST 75 H ALT 124 H Alkaline Phosphatase 74 Total Protein 6.6 Albumin 1.9 L Globulin 4.7 H Albumin/Globulin Ratio 0.4 L Vancomycin Trough Random Vancomycin 14.2 Tacrolimus Microbiology 02/12/20 13:15 Blood Culture (Wb) - Right Forearm Blood Culture - Preliminary No growth in 48 hours. 02/12/20 22:50 Sputum, Expectorated/Coughed Gram Stain - Final 02/12/20 22:50 Sputum, Expectorated/Coughed Respiratory Culture - Preliminary Appears to be normal respiratory chevy. Further studies to follow. Clinical Impression(s) from Imaging Studies Chest X-Ray 02/12/20 13:26 IMPRESSION: Worsening bilateral pneumonia, pulmonary edema, or ARDS. Electronically Signed: Bert Kuhn MD at 13:57 EST Tel , Service support , Chest CT 02/12/20 14:13 IMPRESSION: Bilateral pneumonia, pulmonary edema, or ARDS. Electronically Signed: Bert Kuhn MD at 15:03 EST Tel , Service support , Ankle X-Ray 02/12/20 19:10 IMPRESSION: Normal x-ray examination of the ankle. Electronically Signed: Bert Kuhn MD at 7:05 EST Tel , Service support , Current Medications Acetaminophen (Acetaminophen 325 Mg Tablet) 650 mg PO Q6H PRN PRN PRN Reason: Pain Score 1-10/Temp > 100.7 F Last Admin: 02/15/20 00:49 Dose: 650 mg Documented by: Al Hydroxide/Mg Hydroxide (Mag Hydrox/Al Hydrox/Simeth 30 Ml Udc) 30 ml PO Q6H PRN PRN PRN Reason: Gastric Burning Albuterol Sulfate (Albuterol 2.5 Mg/3 Ml Vial.Neb.) 2.5 mg INHALATION Q2H PRN PRN PRN Reason: SOB/Wheezing Last Admin: 02/13/20 12:20 Dose: 2.5 mg Documented by: Amiodarone HCl (Amiodarone 200 Mg Tablet) 200 mg PO BID [facility] Stop: 02/18/20 22:01 Last Admin: 02/14/20 21:13 Dose: 200 mg Documented by: Apixaban (Apixaban 5 Mg Tablet) 5 mg PO BID [facility] Last Admin: 02/14/20 21:12 Dose: 5 mg Documented by: Aspirin (Aspirin 81 Mg Tab.Chew) 81 mg PO DAILY@0800 [facility] Last Admin: 02/14/20 10:04 Dose: 81 mg Documented by: Atorvastatin Calcium (Atorvastatin Calcium 10 Mg Tablet) 10 mg PO QHS [facility] Last Admin: 02/14/20 21:13 Dose: 10 mg Documented by: Calamine/Phenol (Menthol/Lanolin/Calamine/Znox 113 Gm Tube) 1 applic TOPICAL BID [facility]; Protocol Last Admin: 02/14/20 21:12 Dose: 1 applicatio Documented by: Docusate Sodium (Docusate Sodium 100 Mg Capsule) 100 mg PO BID PRN PRN PRN Reason: Constipation Famotidine (Famotidine 20 Mg Tablet) 20 mg PO DAILY [facility] Last Admin: 02/14/20 10:04 Dose: 20 mg Documented by: Furosemide (Furosemide 40 Mg/4 Ml Vial) 40 mg IV BIDLX [facility] Last Admin: 02/14/20 18:21 Dose: 40 mg Documented by: Guaifenesin (Guaifenesin 10 Ml Udc (200mg/10ml)) 20 ml PO Q4H PRN PRN PRN Reason: COUGH Vancomycin IV Pharmacy to Dose (1 ea/ Sodium Chloride) 500 mls @ 250 mls/hr IV PRN PRN; Protocol PRN Reason: Rx to Dose Piperacillin Sod/Tazobactam (Sod 3.375 gm/ Sodium Chloride) 50 mls @ 12.5 mls/hr IV Q8 [facility] Last Admin: 02/15/20 05:03 Dose: 12.5 mls/hr Documented by: Vancomycin HCl 750 mg/ Sodium (Chloride) 265 mls @ 250 mls/hr IV Q24H [facility] Last Infusion: 02/15/20 04:58 Dose: Infused Documented by: Lorazepam (Lorazepam 2 Mg/Ml Syringe) 0.5 mg IV Q6H PRN PRN PRN Reason: anxiety with BIPAP Last Admin: 02/13/20 12:05 Dose: 0.5 mg Documented by: Melatonin (Melatonin 3 Mg Tablet) 3 mg PO QHS PRN PRN PRN Reason: INSOMNIA Metoprolol Tartrate (Metoprolol Tartrate 100 Mg Tablet) 100 mg PO BID [facility] Last Admin: 02/14/20 21:12 Dose: 100 mg Documented by: Ondansetron HCl (Ondansetron 4 Mg/2 Ml Vial) 4 mg IV Q8H PRN PRN PRN Reason: NAUSEA/VOMITING Prednisone (Prednisone 5 Mg Tablet) 7.5 mg PO DAILY@0800 [facility] Last Admin: 02/14/20 10:03 Dose: 7.5 mg Documented by: Sodium Chloride (0.9% Saline Lock 10 Ml Syringe) 10 - 40 ml IV UD PRN PRN Reason: SALINE FLUSH Last Admin: 02/14/20 05:05 Dose: 10 ml Documented by: Sodium Chloride (Sodium Chloride 0.65% 1 [place].Btl) 2 spray NASAL TID PRN PRN PRN Reason: NASAL DRYNESS Last Admin: 02/15/20 00:50 Dose: 2 spray Documented by: Tacrolimus (Tacrolimus Anhydrous 1 Mg Capsule) 1 mg PO BID [facility] Last Admin: 02/14/20 21:12 Dose: 1 mg Documented by: Trimethoprim/Sulfamethoxazole (Smz/Tmp Ds Tablet) 0.5 tablet PO DAILYCM [facility] Last Admin: 02/14/20 10:02 Dose: 0.5 tablet Documented by: Medical Necessity - Tobacco Use Smoking Status: Former smoker Tobacco Use: Cigarettes - smoked up until he was admitted with COVID about 1ppd Assessment/Plan All Active Problems (Last Reviewed 02/12/20 @ 15:[address] Fransisca Saucedo DO) TUCKER (acute kidney injury) (Resolved) Leukocytosis (Acute) Acute respiratory failure with hypoxia (Acute) a fib with rvr (Resolved) RECOMMENDATIONS: 1. Continue attempts at diuresis as tolerated by hemodynamics and renal function. 2. Wean supplemental oxygen to maintain saturations at or above 90%. 3. Tacrolimus management per nephrology recommendations. 4. Continue systemic anticoagulation with Eliquis twice daily. 5. Antibiotics can be discontinued from my perspective, given negative infectious work-up. 6. Encourage incentive spirometer use and mobilize patient as tolerated. IMPRESSIONS: 1. Acute on chronic hypoxemic respiratory failure The patient's chest x-ray findings are likely due to the sequelae of recent COVID-19 coupled with superimposed pulmonary edema. I would not expect significant improvement in the patient's chest x-ray, given that he was just discharged from the hospital with COVID-19 pneumonia. Radiographic improvement will lag behind the patient's clinical improvement. At this time, the patient will be diuresed, over concerns for decompensated heart failure. His supplemental oxygen will be weaned to maintain oxygen saturations at or above 90%. Given the patient's negative infectious work-up, antibiotics can be discontinued from my perspective. 2. Chronic kidney disease status post renal transplantation Given the patient's renal transplantation history along with need for volume optimization, nephrology is following to assist with medical management. 3. Paroxysmal atrial fibrillation with RVR Continue outpatient rate/rhythm control strategy. 4. Hypertension/hyperlipidemia/elevated troponin Complicates care, management, recovery and prognosis. Continue home medications as indicated. This note was generated with [employer] dictation software. It may contain incorrect words, spelling, and punctuation that were not noted in checking the note before signing. Inpatient E&M: 88683 Subs Hosp L2
[2020-02-15] MEDS: APIXABAN 5 MG TABLET PO ×2 (09:18→21:13)
[2020-02-15] MEDS: Furosemide 40 MG/4 ML Vial IV ×2 (09:18→18:02)
[2020-02-15] MEDS: Metoprolol Tartrate 100 MG Tablet PO ×2 (09:18→21:12)
[2020-02-15] MEDS: Smz/Tmp Ds Tablet 0.5 TABLET PO (09:18)
[2020-02-15] MEDS: Famotidine 20 MG Tablet PO (09:18)
[2020-02-15] MEDS: Aspirin 81 MG TAB.CHEW PO (09:19)
[2020-02-15] MEDS: Amiodarone 200 MG Tablet PO ×2 (09:19→21:13)
[2020-02-15] MEDS: predniSONE 5 MG Tablet 7.5 MG PO (09:19)
[2020-02-15] MEDS: Tacrolimus Anhydrous 1 MG Capsule PO ×2 (09:20→21:12)
[2020-02-15] MEDS: Menthol/Lanolin/Calamine/Znox 113 GM Tube 1 APPLIC TOPICAL ×2 (09:21→21:12)
--- NOTE | 2020-02-15 11:16 | PN_ITS ---
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 Fransisca segura DO) Leukocytosis (Acute) Acute respiratory failure with hypoxia (Acute) Subjective: Patient seen and examined. Reports ongoing shortness of breath however improved. Denies cough, fever, chills. Denies other symptoms or complaints. - Physical Exam Vitals/I&O's: Vital Signs Temp Pulse Resp BP Pulse Ox 99.1 F 93 32 H 126/74 H 95 02/15/20 09:17 02/15/20 09:18 02/15/20 09:17 02/15/20 09:17 02/15/20 09:17 Oxygen Flow Rate (L/min) 6 Oxygen Delivery Method Nasal Cannula Weight: 149 lb 11.2 oz Body Mass Index (BMI) 25.7 Intake and Output for Last 24 Hours 02/13/20 02/14/20 02/15/20 23:59 23:59 23:59 Intake Total 1530 / 1530 866.67 / 866.67 565 / 565 Output Total 2024 / 2024 2350 / 2350 375 / 375 Balance -495 / -495 -1483.33 / -1483.33 190 / 190 General: Alert, Oriented x3, Cooperative HEENT: Atraumatic, PERRLA, EOMI, Normocephalic Neck: Supple, No JVD, Negative Carotid Bruits Lungs: Diminished, Rales, Tachypneic, Using Accessory Muscles Cardiovascular: Regular rate, Regular Rhythm, Murmur Abdomen: Bowel Sounds Present, Soft, Non Tender, Non-Distended Extremities: No clubbing, No cyanosis, No edema Skin: No rashes, No breakdown Musculoskeletal: No Tenderness to Palpation of Joints or Extremities Neurological: Cranial nerves II-XII grossly intact, Neuro grossly intact Psych/Mental Status: Flat Affect Microbiology Past 72 Hours 02/12/20 22:50 Sputum, Expectorated/Coughed Gram Stain - Final 02/12/20 22:50 Sputum, Expectorated/Coughed Respiratory Culture - Final Presumptive C albicans 02/12/20 13:15 Blood Culture (Wb) - Right Forearm Blood Culture - Preliminary No growth in 48 hours. Laboratory Results 02/15/20 02:08: WBC 13.0 H, RBC 3.22 L, Hgb 8.7 L, Hct 29.4 L, MCV 91.3, MCH 27.0, MCHC 29.6 L, RDW Std Deviation 48.7 H, RDW Coeff of Genaro 14.6, Plt Count 346, MPV 9.2, Immature Gran % (Auto) 1.800 H, Neut % (Auto) 67.7, Lymph % (Auto) 12.2 L, [place] % (Auto) 12.0 H, Eos % (Auto) 5.7 H, Baso % (Auto) 0.6, Absolute Neuts (auto) 8.8 H, Absolute Lymphs (auto) 1.59, Nucleated RBC % 0, Differential Comment SCANNED, Diff Path Review May foll, Hypochromasia 1+, Anisocytosis 1+, Microcytosis RARE, Macrocytosis RARE 02/15/20 02:08: Sodium 139, Potassium 4.0, Chloride 104, Carbon Dioxide 29.0, Anion Gap 6, BUN 34 H, Creatinine 1.82 H, Estim Creat Clear Calc 40.36, Est GFR (MDRD) Af Amer 50 L, Est GFR (MDRD) Non-Af 41 L, BUN/Creatinine Ratio 18.7, Glucose 132 H, Calcium 9.0, Total Bilirubin 0.20, AST 75 H, ALT 124 H, Alkaline Phosphatase 74, Total Protein 6.6, Albumin 1.9 L, Globulin 4.7 H, Albumin/Globulin Ratio 0.4 L 02/15/20 02:08: Random Vancomycin 14.2 Current Medications Acetaminophen (Acetaminophen 325 Mg Tablet) 650 mg PO Q6H PRN PRN PRN Reason: Pain Score 1-10/Temp > 100.7 F Last Admin: 02/15/20 09:30 Dose: 650 mg Documented by: Al Hydroxide/Mg Hydroxide (Mag Hydrox/Al Hydrox/Simeth 30 Ml Udc) 30 ml PO Q6H PRN PRN PRN Reason: Gastric Burning Albuterol Sulfate (Albuterol 2.5 Mg/3 Ml Vial.Neb.) 2.5 mg INHALATION Q2H PRN PRN PRN Reason: SOB/Wheezing Last Admin: 02/13/20 12:20 Dose: 2.5 mg Documented by: Amiodarone HCl (Amiodarone 200 Mg Tablet) 200 mg PO BID [facility] Stop: 02/18/20 22:01 Last Admin: 02/15/20 09:19 Dose: 200 mg Documented by: Apixaban (Apixaban 5 Mg Tablet) 5 mg PO BID [facility] Last Admin: 02/15/20 09:18 Dose: 5 mg Documented by: Aspirin (Aspirin 81 Mg Tab.Chew) 81 mg PO DAILY@0800 [facility] Last Admin: 02/15/20 09:19 Dose: 81 mg Documented by: Atorvastatin Calcium (Atorvastatin Calcium 10 Mg Tablet) 10 mg PO QHS [facility] Last Admin: 02/14/20 21:13 Dose: 10 mg Documented by: Calamine/Phenol (Menthol/Lanolin/Calamine/Znox 113 Gm Tube) 1 applic TOPICAL BID [facility]; Protocol Last Admin: 02/15/20 09:21 Dose: 1 applicatio Documented by: Docusate Sodium (Docusate Sodium 100 Mg Capsule) 100 mg PO BID PRN PRN PRN Reason: Constipation Famotidine (Famotidine 20 Mg Tablet) 20 mg PO DAILY [facility] Last Admin: 02/15/20 09:18 Dose: 20 mg Documented by: Furosemide (Furosemide 40 Mg/4 Ml Vial) 40 mg IV BIDLX [facility] Last Admin: 02/15/20 09:18 Dose: 40 mg Documented by: Guaifenesin (Guaifenesin 10 Ml Udc (200mg/10ml)) 20 ml PO Q4H PRN PRN PRN Reason: COUGH Vancomycin IV Pharmacy to Dose (1 ea/ Sodium Chloride) 500 mls @ 250 mls/hr IV PRN PRN; Protocol PRN Reason: Rx to Dose Piperacillin Sod/Tazobactam (Sod 3.375 gm/ Sodium Chloride) 50 mls @ 12.5 mls/hr IV Q8 [facility] Last Infusion: 02/15/20 09:24 Dose: Infused Documented by: Vancomycin HCl 750 mg/ Sodium (Chloride) 265 mls @ 250 mls/hr IV Q24H [facility] Last Infusion: 02/15/20 04:58 Dose: Infused Documented by: Lorazepam (Lorazepam 2 Mg/Ml Syringe) 0.5 mg IV Q6H PRN PRN PRN Reason: anxiety with BIPAP Last Admin: 02/13/20 12:05 Dose: 0.5 mg Documented by: Melatonin (Melatonin 3 Mg Tablet) 3 mg PO QHS PRN PRN PRN Reason: INSOMNIA Metoprolol Tartrate (Metoprolol Tartrate 100 Mg Tablet) 100 mg PO BID [facility] Last Admin: 02/15/20 09:18 Dose: 100 mg Documented by: Ondansetron HCl (Ondansetron 4 Mg/2 Ml Vial) 4 mg IV Q8H PRN PRN PRN Reason: NAUSEA/VOMITING Prednisone (Prednisone 5 Mg Tablet) 7.5 mg PO DAILY@0800 [facility] Last Admin: 02/15/20 09:19 Dose: 7.5 mg Documented by: Sodium Chloride (0.9% Saline Lock 10 Ml Syringe) 10 - 40 ml IV UD PRN PRN Reason: SALINE FLUSH Last Admin: 02/14/20 05:05 Dose: 10 ml Documented by: Sodium Chloride (Sodium Chloride 0.65% 1 [place].Btl) 2 spray NASAL TID PRN PRN PRN Reason: NASAL DRYNESS Last Admin: 02/15/20 00:50 Dose: 2 spray Documented by: Tacrolimus (Tacrolimus Anhydrous 1 Mg Capsule) 1 mg PO BID [facility] Last Admin: 02/15/20 09:20 Dose: 1 mg Documented by: Trimethoprim/Sulfamethoxazole (Smz/Tmp Ds Tablet) 0.5 tablet PO DAILYCM [facility] Last Admin: 02/15/20 09:18 Dose: 0.5 tablet Documented by: Medical Necessity - Tobacco Use Smoking Status: Former smoker Tobacco Use: Cigarettes - smoked up until he was admitted with COVID about 1ppd Assessment/Plan All Active Problems (Last Reviewed 02/12/20 @ 15:[address] Fransisca Saucedo, DO) TUCKER (acute kidney injury) (Resolved) Leukocytosis (Acute) Acute respiratory failure with hypoxia (Acute) a fib with rvr (Resolved) 1. Acute on chronic hypoxic respiratory failure-multifactorial secondary to recent COVID-19 pneumonitis, questionable pulmonary fibrosis and acute heart failure with preserved ejection fraction. Pulmonary medicine following. Sputum culture shows normal respiratory chevy. Antibiotics discontinued. Continue supplement oxygen to maintain O2 at above 90%. Continue IV Lasix 40 mg twice daily. Strict I&O. Daily weight. Echocardiogram demonstrates an EF of 70%. As needed albuterol aerosol. 2. Paroxysmal atrial fibrillation with RVR-rate now stable. Continue amiodarone, metoprolol, Eliquis. 3. Abnormal troponin-suspect demand ischemia as result of #1/#2. Enzymes trended down. Echocardiogram demonstrates an EF of 70%, stage II diastolic dysfunction, mild aortic valve insufficiency. 4. Mild transaminitis-stable, recommend outpatient follow-up. 5. Chronic kidney disease stage III-history of renal transplant 2005. Continue Prograf, prednisone, Bactrim. Nephrology consulted. 6. Hypertension-stable, continue metoprolol. 7. Hyperlipidemia-continue statin. 8. GERD-continue H2 blockers. 9. Chronic normocytic anemia-stable, trend CBC. DVT prophylaxis- Eliquis Discharge planning: [facility] when medically stable. This patient was seen by ZAYRA Ortiz under the supervision of Dr. Tineo. <Robert Tineo - Last Filed: 02/15/20 11:24> - Physical Exam Vitals/I&O's: Vital Signs Temp Pulse Resp BP Pulse Ox 99.1 F 93 32 H 126/74 H 95 02/15/20 09:17 02/15/20 09:18 02/15/20 09:17 02/15/20 09:17 02/15/20 09:17 Oxygen Flow Rate (L/min) 6 Oxygen Delivery Method Nasal Cannula Weight: 67.903 kg Body Mass Index (BMI) 25.7 Intake and Output for Last 24 Hours 02/13/20 02/14/20 02/15/20 23:59 23:59 23:59 Intake Total 1530 / 1530 866.67 / 866.67 565 / 565 Output Total 2024 / 2024 2350 / 2350 375 / 375 Balance -495 / -495 -1483.33 / -1483.33 190 / 190 Microbiology Past 72 Hours 02/12/20 22:50 Sputum, Expectorated/Coughed Gram Stain - Final 02/12/20 22:50 Sputum, Expectorated/Coughed Respiratory Culture - Final Presumptive C albicans 02/12/20 13:15 Blood Culture (Wb) - Right Forearm Blood Culture - Preliminary No growth in 48 hours. Laboratory Results 02/15/20 02:08: WBC 13.0 H, RBC 3.22 L, Hgb 8.7 L, Hct 29.4 L, MCV 91.3, MCH 27.0, MCHC 29.6 L, RDW Std Deviation 48.7 H, RDW Coeff of Genaro 14.6, Plt Count 346, MPV 9.2, Immature Gran % (Auto) 1.800 H, Neut % (Auto) 67.7, Lymph % (Auto) 12.2 L, [place] % (Auto) 12.0 H, Eos % (Auto) 5.7 H, Baso % (Auto) 0.6, Absolute Neuts (auto) 8.8 H, Absolute Lymphs (auto) 1.59, Nucleated RBC % 0, Differential Comment SCANNED, Diff Path Review May foll, Hypochromasia 1+, Anisocytosis 1+, Microcytosis RARE, Macrocytosis RARE 02/15/20 02:08: Sodium 139, Potassium 4.0, Chloride 104, Carbon Dioxide 29.0, Anion Gap 6, BUN 34 H, Creatinine 1.82 H, Estim Creat Clear Calc 40.36, Est GFR (MDRD) Af Amer 50 L, Est GFR (MDRD) Non-Af 41 L, BUN/Creatinine Ratio 18.7, Glucose 132 H, Calcium 9.0, Total Bilirubin 0.20, AST 75 H, ALT 124 H, Alkaline Phosphatase 74, Total Protein 6.6, Albumin 1.9 L, Globulin 4.7 H, Albumin/Globulin Ratio 0.4 L 02/15/20 02:08: Random Vancomycin 14.2 Current Medications Acetaminophen (Acetaminophen 325 Mg Tablet) 650 mg PO Q6H PRN PRN PRN Reason: Pain Score 1-10/Temp > 100.7 F Last Admin: 02/15/20 09:30 Dose: 650 mg Documented by: Al Hydroxide/Mg Hydroxide (Mag Hydrox/Al Hydrox/Simeth 30 Ml Udc) 30 ml PO Q6H PRN PRN PRN Reason: Gastric Burning Albuterol Sulfate (Albuterol 2.5 Mg/3 Ml Vial.Neb.) 2.5 mg INHALATION Q2H PRN PRN PRN Reason: SOB/Wheezing Last Admin: 02/13/20 12:20 Dose: 2.5 mg Documented by: Amiodarone HCl (Amiodarone 200 Mg Tablet) 200 mg PO BID [facility] Stop: 02/18/20 22:01 Last Admin: 02/15/20 09:19 Dose: 200 mg Documented by: Apixaban (Apixaban 5 Mg Tablet) 5 mg PO BID [facility] Last Admin: 02/15/20 09:18 Dose: 5 mg Documented by: Aspirin (Aspirin 81 Mg Tab.Chew) 81 mg PO DAILY@0800 [facility] Last Admin: 02/15/20 09:19 Dose: 81 mg Documented by: Atorvastatin Calcium (Atorvastatin Calcium 10 Mg Tablet) 10 mg PO QHS [facility] Last Admin: 02/14/20 21:13 Dose: 10 mg Documented by: Calamine/Phenol (Menthol/Lanolin/Calamine/Znox 113 Gm Tube) 1 applic TOPICAL BID [facility]; Protocol Last Admin: 02/15/20 09:21 Dose: 1 applicatio Documented by: Docusate Sodium (Docusate Sodium 100 Mg Capsule) 100 mg PO BID PRN PRN PRN Reason: Constipation Famotidine (Famotidine 20 Mg Tablet) 20 mg PO DAILY [facility] Last Admin: 02/15/20 09:18 Dose: 20 mg Documented by: Furosemide (Furosemide 40 Mg/4 Ml Vial) 40 mg IV BIDLX [facility] Last Admin: 02/15/20 09:18 Dose: 40 mg Documented by: Guaifenesin (Guaifenesin 10 Ml Udc (200mg/10ml)) 20 ml PO Q4H PRN PRN PRN Reason: COUGH Vancomycin IV Pharmacy to Dose (1 ea/ Sodium Chloride) 500 mls @ 250 mls/hr IV PRN PRN; Protocol PRN Reason: Rx to Dose Lorazepam (Lorazepam 2 Mg/Ml Syringe) 0.5 mg IV Q6H PRN PRN PRN Reason: anxiety with BIPAP Last Admin: 02/13/20 12:05 Dose: 0.5 mg Documented by: Melatonin (Melatonin 3 Mg Tablet) 3 mg PO QHS PRN PRN PRN Reason: INSOMNIA Metoprolol Tartrate (Metoprolol Tartrate 100 Mg Tablet) 100 mg PO BID [facility] Last Admin: 02/15/20 09:18 Dose: 100 mg Documented by: Ondansetron HCl (Ondansetron 4 Mg/2 Ml Vial) 4 mg IV Q8H PRN PRN PRN Reason: NAUSEA/VOMITING Prednisone (Prednisone 5 Mg Tablet) 7.5 mg PO DAILY@0800 [facility] Last Admin: 02/15/20 09:19 Dose: 7.5 mg Documented by: Sodium Chloride (0.9% Saline Lock 10 Ml Syringe) 10 - 40 ml IV UD PRN PRN Reason: SALINE FLUSH Last Admin: 02/14/20 05:05 Dose: 10 ml Documented by: Sodium Chloride (Sodium Chloride 0.65% 1 [place].Btl) 2 spray NASAL TID PRN PRN PRN Reason: NASAL DRYNESS Last Admin: 02/15/20 00:50 Dose: 2 spray Documented by: Tacrolimus (Tacrolimus Anhydrous 1 Mg Capsule) 1 mg PO BID [facility] Last Admin: 02/15/20 09:20 Dose: 1 mg Documented by: Trimethoprim/Sulfamethoxazole (Smz/Tmp Ds Tablet) 0.5 tablet PO DAILYCM [facility] Last Admin: 02/15/20 09:18 Dose: 0.5 tablet Documented by: Assessment/Plan This patient was seen in conjunction with ZAYRA Ortiz . I have in dependently interviewed and examined the patient and reviewed pertinent historical, laboratory, and other data. Please refer to ZAYRA Ortiz note for details of this patient's presentation, findings, and recommendations. I have reviewed ZAYRA Ortiz note and concur with documented findings. In brief, Patient is a 54-year-old male discharge from the hospital on 0 after prolonged hospitalization from 01/18/2020 to 02/10/2020 with COVID-19 pneumonia and subsequent respiratory failure who presented back to the emergency department 2 days after her discharge with shortness of breath 02/15/2020; patient seen remains significantly dyspneic at rest and desaturates easily with activity. Physical Examination: GENERAL: cooperative HEENT: Atraumatic; EYES; Anicteric, Normal Conjunctiva NECK; supple, normal thyroid, RESPIRATORY: Diminished to auscultation CARDIOVASCULAR: Irregular S1-S2, tachycardic GI: soft, normoactive bowel sounds, : No Renal angle tenderness; EXTREMITIES: No edema, no clubbing, MUSCULOSKELETAL: no muscle waisting NEURO: Awake; no lateralizing signs. SKIN: No Rash PSYCH; Flat affect Assessment: Patient is a 54-year-old male discharge from the hospital on 02/10/2020 after prolonged hospitalization from 01/18/2020 to 02/10/2020 with COVID-19 pneumonia and subsequent respiratory failure who presented back to the emergency department 2 days after her discharge with shortness of breath 1. Acute on chronic hypoxic respiratory failure 2. Acute congestive heart failure preserved ejection fraction 3. Elevated troponin -secondary to demand ischemia from above 4. Mild transaminitis 5. 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 Anemia- Secondary to chronic disorder 7. Paroxysmal atrial fibrillation 8. Dyslipidemia 9. GERD 10. DVT prophylaxis Recommendations: 1. I have discussed the results of my overview and impressions with the patient 2. Options for management were reviewed Inpatient E&M: [id number] [facility] L[facility]
--- NOTE | 2020-02-15 13:34 | NT.THERAPY_ITS ---
Nutrition Therapy Report - History Current diet / nutrition support order:: cardiac - Anthropometric Measurements Height:: 5 ft 5 in Weight:: 67.903 kg Body Mass Index (BMI):: 24.9 - Relevant Labs Relevant Labs:: WBC 13.0 K/mm3 (4.4-11.0) H 02/15/20 02:08 RBC 3.22 M/mm3 (4.6-6.2) L 02/15/20 02:08 Hgb 8.7 g/dL (13.0-16.5) L 02/15/20 02:08 Hct 29.4 % (40-54) L 02/15/20 02:08 MCH 26.6 pg (27.0-32.0) L 02/14/20 02:00 MCHC 29.6 g/dL (32-36) L 02/15/20 02:08 RDW Std Deviation 48.7 fl (35.1-43.9) H 02/15/20 02:08 RDW Coeff of Genaro 14.8 % (11.6-14.6) H 02/14/20 02:00 Immature Gran % (Auto) 1.800 % (0.0-0.9) H 02/15/20 02:08 Neut % (Auto) 70.4 % (47-70) H 02/13/20 05:57 Lymph % (Auto) 12.2 % (19-41) L 02/15/20 02:08 [place] % (Auto) 12.0 % (0-10) H 02/15/20 02:08 Eos % (Auto) 5.7 % (0-5) H 02/15/20 02:08 Absolute Neuts (auto) 8.8 X10^3/uL (2.0-7.7) H 02/15/20 02:08 BUN 34 mg/dL (7-18) H 02/15/20 02:08 Creatinine 1.82 mg/dL (0.70-1.30) H 02/15/20 02:08 Est GFR (MDRD) Af Amer 50 mL/min (>60) L 02/15/20 02:08 Est GFR (MDRD) Non-Af 41 mL/min (>60) L 02/15/20 02:08 BUN/Creatinine Ratio 20.1 RATIO (10-20) H 02/13/20 05:57 Glucose 132 mg/dL (74-106) H 02/15/20 02:08 AST 75 U/L (15-37) H 02/15/20 02:08 ALT 124 U/L (16-61) H 02/15/20 02:08 Troponin I 0.057 ng/mL (<0.045) H 02/12/20 20:06 B-Natriuretic Peptide 1073.4 pg/mL (0-100) H 02/12/20 13:15 Albumin 1.9 g/dL (3.2-5.0) L 02/15/20 02:08 Globulin 4.7 g/dL (2.2-4.2) H 02/15/20 02:08 Albumin/Globulin Ratio 0.4 RATIO (0.9-2.4) L 02/15/20 02:08 Procalcitonin 0.27 ng/mL (0.00-0.09) H 02/12/20 13:15 - Assessment Food / Nutrition-Related History:: Pt SOB at time of assessment. Able to answer questions w/ brief responses. Has not been consuming much PO over past few days d/t resp. status. Had lengthy hospitalization for COVID-19 in 2019, requiring intubation. 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 Pt states UBW ~170#. Was 171.5# on 01/18/20 and CBW 149.7#- 21.8#/12.7% wt loss < 1 month. States he is hungry at time of assessment. - Nutrition Diagnosis Problem / Etiology / Signs & Symptoms (PES):: Pt w/ severe, acute malnutrition r/t inadequate energy intake during acute COVID-19 illness as evidenced by PO intake meeting less than 50% of estimated needs for at least 5 days [employer]ACCAR[employer], unintentional wt loss of 21.8#/12.7% <1 month. Evidence of Malnutrition Exists:: Yes Severe PCM:: Acute Illness - Food / Nutrient Delivery Interventions Summary of nutrition intervention:: Lunch order taken for pt. Will add ONS w/ me dpass for additional calories/protein if consumed. May need CONSTRUCTION ENGINEER eval if chewing/swallowing issues become evident. Nutrition support ordered as / adjusted to:: continue cardiac diet as tolerated; 120mL ensure enlive 4x/day w/ medpass Nutrition education provided?: No - MNT Monitoring Further MNT monitoring and evaluation required?: Yes MNT Follow-up in:: 3-5 days
--- NOTE | 2020-02-15 18:01 | PN.RENAL_ITS ---
Patient Problems: Active and Suspected Problems (Last Reviewed 02/12/20 @ 15:[address] Fransisca Saucedo, DO) Leukocytosis (Acute) Acute respiratory failure with hypoxia (Acute) Subjective: on and off sob no other c/o - Physical Exam Vitals/I&O's: Vital Signs Temp Pulse Resp BP Pulse Ox 98.7 F 81 20 H 116/68 96 02/15/20 13:42 02/15/20 15:00 02/15/20 13:42 02/15/20 13:42 02/15/20 13:42 Oxygen Flow Rate (L/min) 6 Oxygen Delivery Method Nasal Cannula Weight: 67.903 kg Body Mass Index (BMI) 24.9 Intake and Output for Last 24 Hours 02/13/20 02/14/20 02/15/20 23:59 23:59 23:59 Intake Total 1530 / 1530 866.67 / 866.67 565 / 565 Output Total 2024 / 2024 2350 / 2350 1400 / 1400 Balance -495 / -495 -1483.33 / -1483.33 -835 / -835 General: Alert, No apparent distress HEENT: Atraumatic, Normocephalic Neck: Supple, Trachea Midline Lungs: Diminished Cardiovascular: Normal S1, Normal S2 Microbiology Past 72 Hours 02/12/20 22:50 Sputum, Expectorated/Coughed Gram Stain - Final 02/12/20 22:50 Sputum, Expectorated/Coughed Respiratory Culture - Final Presumptive C albicans 02/12/20 13:15 Blood Culture (Wb) - Right Forearm Blood Culture - Preliminary No growth in 48 hours. Laboratory Results 02/15/20 02:08: WBC 13.0 H, RBC 3.22 L, Hgb 8.7 L, Hct 29.4 L, MCV 91.3, MCH 27.0, MCHC 29.6 L, RDW Std Deviation 48.7 H, RDW Coeff of Genaro 14.6, Plt Count 346, MPV 9.2, Immature Gran % (Auto) 1.800 H, Neut % (Auto) 67.7, Lymph % (Auto) 12.2 L, [place] % (Auto) 12.0 H, Eos % (Auto) 5.7 H, Baso % (Auto) 0.6, Absolute Neuts (auto) 8.8 H, Absolute Lymphs (auto) 1.59, Nucleated RBC % 0, Differential Comment SCANNED, Diff Path Review May foll, Hypochromasia 1+, Anisocytosis 1+, Microcytosis RARE, Macrocytosis RARE 02/15/20 02:08: Sodium 139, Potassium 4.0, Chloride 104, Carbon Dioxide 29.0, Anion Gap 6, BUN 34 H, Creatinine 1.82 H, Estim Creat Clear Calc 40.36, Est GFR (MDRD) Af Amer 50 L, Est GFR (MDRD) Non-Af 41 L, BUN/Creatinine Ratio 18.7, Glucose 132 H, Calcium 9.0, Total Bilirubin 0.20, AST 75 H, ALT 124 H, Alkaline Phosphatase 74, Total Protein 6.6, Albumin 1.9 L, Globulin 4.7 H, Albumin/Globulin Ratio 0.4 L 02/15/20 02:08: Random Vancomycin 14.2 Current Medications Acetaminophen (Acetaminophen 325 Mg Tablet) 650 mg PO Q6H PRN PRN PRN Reason: Pain Score 1-10/Temp > 100.7 F Last Admin: 02/15/20 09:30 Dose: 650 mg Documented by: Al Hydroxide/Mg Hydroxide (Mag Hydrox/Al Hydrox/Simeth 30 Ml Udc) 30 ml PO Q6H PRN PRN PRN Reason: Gastric Burning Albuterol Sulfate (Albuterol 2.5 Mg/3 Ml Vial.Neb.) 2.5 mg INHALATION Q2H PRN PRN PRN Reason: SOB/Wheezing Last Admin: 02/13/20 12:20 Dose: 2.5 mg Documented by: Amiodarone HCl (Amiodarone 200 Mg Tablet) 200 mg PO BID [facility] Stop: 02/18/20 22:01 Last Admin: 02/15/20 09:19 Dose: 200 mg Documented by: Apixaban (Apixaban 5 Mg Tablet) 5 mg PO BID [facility] Last Admin: 02/15/20 09:18 Dose: 5 mg Documented by: Aspirin (Aspirin 81 Mg Tab.Chew) 81 mg PO DAILY@0800 [facility] Last Admin: 02/15/20 09:19 Dose: 81 mg Documented by: Atorvastatin Calcium (Atorvastatin Calcium 10 Mg Tablet) 10 mg PO QHS [facility] Last Admin: 02/14/20 21:13 Dose: 10 mg Documented by: Calamine/Phenol (Menthol/Lanolin/Calamine/Znox 113 Gm Tube) 1 applic TOPICAL BID [facility]; Protocol Last Admin: 02/15/20 09:21 Dose: 1 applicatio Documented by: Docusate Sodium (Docusate Sodium 100 Mg Capsule) 100 mg PO BID PRN PRN PRN Reason: Constipation Famotidine (Famotidine 20 Mg Tablet) 20 mg PO DAILY [facility] Last Admin: 02/15/20 09:18 Dose: 20 mg Documented by: Furosemide (Furosemide 40 Mg/4 Ml Vial) 40 mg IV BIDLX [facility] Last Admin: 02/15/20 09:18 Dose: 40 mg Documented by: Guaifenesin (Guaifenesin 10 Ml Udc (200mg/10ml)) 20 ml PO Q4H PRN PRN PRN Reason: COUGH Lorazepam (Lorazepam 2 Mg/Ml Syringe) 0.5 mg IV Q6H PRN PRN PRN Reason: anxiety with BIPAP Last Admin: 02/13/20 12:05 Dose: 0.5 mg Documented by: Melatonin (Melatonin 3 Mg Tablet) 3 mg PO QHS PRN PRN PRN Reason: INSOMNIA Metoprolol Tartrate (Metoprolol Tartrate 100 Mg Tablet) 100 mg PO BID [facility] Last Admin: 02/15/20 09:18 Dose: 100 mg Documented by: Nutritional Formula (Lactose Free) (Ensure Enlive 120 Ml Liquid) 120 ml PO 4X/DAY [facility] Last Admin: 02/15/20 14:54 Dose: Not Given Documented by: Ondansetron HCl (Ondansetron 4 Mg/2 Ml Vial) 4 mg IV Q8H PRN PRN PRN Reason: NAUSEA/VOMITING Prednisone (Prednisone 5 Mg Tablet) 7.5 mg PO DAILY@0800 [facility] Last Admin: 02/15/20 09:19 Dose: 7.5 mg Documented by: Sodium Chloride (0.9% Saline Lock 10 Ml Syringe) 10 - 40 ml IV UD PRN PRN Reason: SALINE FLUSH Last Admin: 02/14/20 05:05 Dose: 10 ml Documented by: Sodium Chloride (Sodium Chloride 0.65% 1 [place].Btl) 2 spray NASAL TID PRN PRN PRN Reason: NASAL DRYNESS Last Admin: 02/15/20 00:50 Dose: 2 spray Documented by: Tacrolimus (Tacrolimus Anhydrous 1 Mg Capsule) 1 mg PO BID [facility] Last Admin: 02/15/20 09:20 Dose: 1 mg Documented by: Trimethoprim/Sulfamethoxazole (Smz/Tmp Ds Tablet) 0.5 tablet PO DAILYCM [facility] Last Admin: 02/15/20 09:18 Dose: 0.5 tablet Documented by: Medical Necessity - Tobacco Use Smoking Status: Former smoker Tobacco Use: Cigarettes - smoked up until he was admitted with COVID about 1ppd Assessment/Plan All Active Problems (Last Reviewed 02/12/20 @ 15:[address] Fransisca Saucedo, DO) TUCKER (acute kidney injury) (Resolved) Leukocytosis (Acute) Acute respiratory failure with hypoxia (Acute) a fib with rvr (Resolved) Renal transplant Respiratory failure Recent COVID-19 pneumonia continue immunosuppression with Prograf and prednisone. Will check with transplant next week to see if can add back CellCept to his immunosuppression regimen. Serum creatinine is 1,8 from 2.0 from 1.7 from 1.5 dyspnea is considerably improved but still present. Reevaluate diuretics dose on a daily basis. f/u TAc level ordered on admission Avoid overdiuresis Avoid nephrotoxins
--- NOTE | 2020-02-15 20:15 | CASEMGMT ---
Readmission chart review: Pt was initially admitted 01/17-02/10/2020 with COVID-19 to the ICU, initially on bipap and then intubated a short time later. Pt was extubated on 01/27/2020 and then on airvo/bipap for several days and then weaned down to nc. Pt also has a hx of renal transplant. Pt was discharged to [facility] on 02/10/2020 with continuous oxygen. Pt returned to [facility] ED on 02/11/2020 x2 for SOB, anxiety and was discharged back to [facility] both times as pt was stable on 2-4L nc at that time. Pt then returned to [facility] ED 02/12/2020 for SOB, worse with lying flat and his pulse ox was 80% on @l at that time. Pt was then admitted to PCU for SOB secondary to Acute Exacerbation CHF and also has worsening bilat pna. Pt is currently on 6L nc at this time and pt's BNPt was intially 1073. Pt is on lasix 40mg iv bid and had been placed on iv antibx as well. CM to follow for any further discharge planning/needs. Freddy AMAYA CM
[2020-02-15] MEDS: Atorvastatin Calcium 10 MG Tablet PO (21:13)
[2020-02-16] VITALS (18 sets, daily range): BP systolic 116–144; BP diastolic 76–91; PULSE 74–98; RESP 19–35; TEMP 36.1–37.2; O2SAT 88–98
[2020-02-16] MEDS: Acetaminophen 325 MG Tablet 650 MG PO (04:20)
[2020-02-16 05:34] LABS: Hematocrit 31.3 % (40-54); Hemoglobin 8.8 g/dL (13.0-16.5); Mean Corp Hgb Conc 28.1 g/dL (32-36); Mean Corpuscular Volume 92.6 fL (80-94); Platelet Count 349 K/mm3 (150-450); RBC Distribution Width SD 50.2 fl (35.1-43.9); Red Blood Count 3.38 M/mm3 (4.6-6.2)
[2020-02-16 05:52] LABS: ALB/GLOB Ratio 0.4 RATIO (0.9-2.4); AST(SGOT) 109 U/L (15-37); Alanine Aminotransfer ALT/SGPT 189 U/L (16-61); Albumin, Serum 1.9 g/dL (3.2-5.0); Alkaline Phosphatase 78 U/L (45-117); Anion Gap 4 (5-15); BUN 27 mg/dL (7-18); BUN/Creat Ratio 16.6 RATIO (10-20); Calcium,Total 9.6 mg/dL (8.5-10.1); Chloride 103 mmol/L (98-107); Creatinine, Serum 1.63 mg/dL (0.70-1.30); EST Glomerular Filtration Rate 47 mL/min (>60); Est Glom Filt Rate - Afr Amer 57 mL/min (>60); Estimated Creatinine Clearance 45.07 ml/min; Globulin 4.9 g/dL (2.2-4.2); Glucose 116 mg/dL (74-106); Potassium 3.7 mmol/L (3.5-5.1); Protein, Total 6.8 g/dL (6.4-8.2); Sodium Level 138 mmol/L (136-145)
[2020-02-16] MEDS: Tacrolimus Anhydrous 1 MG Capsule PO ×2 (09:39→21:44)
[2020-02-16] MEDS: APIXABAN 5 MG TABLET PO ×2 (09:39→21:43)
[2020-02-16] MEDS: Famotidine 20 MG Tablet PO (09:39)
[2020-02-16] MEDS: Aspirin 81 MG TAB.CHEW PO (09:40)
[2020-02-16] MEDS: Metoprolol Tartrate 100 MG Tablet PO ×2 (09:40→21:43)
[2020-02-16] MEDS: predniSONE 5 MG Tablet 7.5 MG PO (09:41)
[2020-02-16] MEDS: Smz/Tmp Ds Tablet 0.5 TABLET PO (09:41)
[2020-02-16] MEDS: Amiodarone 200 MG Tablet PO ×2 (09:42→21:43)
[2020-02-16] MEDS: Furosemide 40 MG/4 ML Vial IV ×2 (09:42→17:42)
[2020-02-16] MEDS: Menthol/Lanolin/Calamine/Znox 113 GM Tube 1 APPLIC TOPICAL ×2 (09:43→21:43)
[2020-02-16] MEDS: 0.9% Saline Lock 10 ML Syringe IV ×5 (09:46→23:28)
--- NOTE | 2020-02-16 12:24 | PCM.PROGNOTE ---
<[employer] C[employer] MANAGER - Last Filed: 02/16/20 12:34> Patient Problems: Active and Suspected Problems (Last Reviewed 02/12/20 @ 15:[address] Fransisca Saucedo DO) Leukocytosis (Acute) Acute respiratory failure with hypoxia (Acute) Subjective: Patient seen and examined. Continues to have shortness of breath. Denies cough, fever, chills. Refuses BiPAP however reports he wore Ventimask overnight. - Physical Exam Vitals/I&O's: Vital Signs Temp Pulse Resp BP Pulse Ox 97.0 F L 87 29 H 116/76 98 02/16/20 09:49 02/16/20 09:49 02/16/20 09:49 02/16/20 09:49 02/16/20 09:49 Oxygen Flow Rate (L/min) 7 Oxygen Delivery Method Nasal Cannula Weight: 149 lb 7.574 oz Body Mass Index (BMI) 24.9 Intake and Output for Last 24 Hours 02/14/20 02/15/20 02/16/20 23:59 23:59 23:59 Intake Total 866.67 / 866.67 865 / 865 500 / 500 Output Total 2350 / 2350 1825 / 1825 750 / 750 Balance -1483.33 / -1483.33 -960 / -960 -250 / -250 General: Alert, Oriented x3, Cooperative HEENT: Atraumatic, PERRLA, EOMI, Normocephalic Neck: Supple, No JVD, Negative Carotid Bruits Lungs: Diminished, Rales, Wheezes Cardiovascular: Regular rate, Regular Rhythm, Murmur Abdomen: Bowel Sounds Present, Soft, Non Tender, Non-Distended Extremities: No clubbing, No cyanosis, No edema, Capillary Refill Less than 3 Seconds Skin: No rashes, No breakdown Musculoskeletal: No Tenderness to Palpation of Joints or Extremities Neurological: Cranial nerves II-XII grossly intact, Neuro grossly intact Psych/Mental Status: Flat Affect Microbiology Past 72 Hours 02/12/20 22:50 Sputum, Expectorated/Coughed Gram Stain - Final 02/12/20 22:50 Sputum, Expectorated/Coughed Respiratory Culture - Final Presumptive C albicans 02/12/20 13:15 Blood Culture (Wb) - Right Forearm Blood Culture - Preliminary No growth in 48 hours. Laboratory Results 02/16/20 05:28: WBC 14.0 H, RBC 3.38 L, Hgb 8.8 L, Hct 31.3 L, MCV 92.6, MCH 26.0 L, MCHC 28.1 L D, RDW Std Deviation 50.2 H, RDW Coeff of Genaro 15.0 H, Plt Count 349, MPV 9.0 02/16/20 05:28: Sodium 138, Potassium 3.7, Chloride 103, Carbon Dioxide 31.0, Anion Gap 4 L, BUN 27 H, Creatinine 1.63 H, Estim Creat Clear Calc 45.07, Est GFR (MDRD) Af Amer 57 L, Est GFR (MDRD) Non-Af 47 L, BUN/Creatinine Ratio 16.6, Glucose 116 H, Calcium 9.6, Total Bilirubin 0.30, AST 109 H, ALT 189 H, Alkaline Phosphatase 78, Total Protein 6.8, Albumin 1.9 L, Globulin 4.9 H, Albumin/Globulin Ratio 0.4 L Current Medications Acetaminophen (Acetaminophen 325 Mg Tablet) 650 mg PO Q6H PRN PRN PRN Reason: Pain Score 1-10/Temp > 100.7 F Last Admin: 02/16/20 04:20 Dose: 650 mg Documented by: Al Hydroxide/Mg Hydroxide (Mag Hydrox/Al Hydrox/Simeth 30 Ml Udc) 30 ml PO Q6H PRN PRN PRN Reason: Gastric Burning Albuterol Sulfate (Albuterol 2.5 Mg/3 Ml Vial.Neb.) 2.5 mg INHALATION Q2H PRN PRN PRN Reason: SOB/Wheezing Last Admin: 02/13/20 12:20 Dose: 2.5 mg Documented by: Amiodarone HCl (Amiodarone 200 Mg Tablet) 200 mg PO BID [facility] Stop: 02/18/20 22:01 Last Admin: 02/16/20 09:42 Dose: 200 mg Documented by: Apixaban (Apixaban 5 Mg Tablet) 5 mg PO BID [facility] Last Admin: 02/16/20 09:39 Dose: 5 mg Documented by: Aspirin (Aspirin 81 Mg Tab.Chew) 81 mg PO DAILY@0800 [facility] Last Admin: 02/16/20 09:40 Dose: 81 mg Documented by: Atorvastatin Calcium (Atorvastatin Calcium 10 Mg Tablet) 10 mg PO QHS [facility] Last Admin: 02/15/20 21:13 Dose: 10 mg Documented by: Calamine/Phenol (Menthol/Lanolin/Calamine/Znox 113 Gm Tube) 1 applic TOPICAL BID [facility]; Protocol Last Admin: 02/16/20 09:43 Dose: 1 applicatio Documented by: Docusate Sodium (Docusate Sodium 100 Mg Capsule) 100 mg PO BID PRN PRN PRN Reason: Constipation Famotidine (Famotidine 20 Mg Tablet) 20 mg PO DAILY [facility] Last Admin: 02/16/20 09:39 Dose: 20 mg Documented by: Furosemide (Furosemide 40 Mg/4 Ml Vial) 40 mg IV BIDLX [facility] Last Admin: 02/16/20 09:42 Dose: 40 mg Documented by: Guaifenesin (Guaifenesin 10 Ml Udc (200mg/10ml)) 20 ml PO Q4H PRN PRN PRN Reason: COUGH Lorazepam (Lorazepam 2 Mg/Ml Syringe) 0.5 mg IV Q6H PRN PRN PRN Reason: anxiety with BIPAP Last Admin: 02/13/20 12:05 Dose: 0.5 mg Documented by: Melatonin (Melatonin 3 Mg Tablet) 3 mg PO QHS PRN PRN PRN Reason: INSOMNIA Metoprolol Tartrate (Metoprolol Tartrate 100 Mg Tablet) 100 mg PO BID [facility] Last Admin: 02/16/20 09:40 Dose: 100 mg Documented by: Nutritional Formula (Lactose Free) (Ensure Enlive 120 Ml Liquid) 120 ml PO 4X/DAY [facility] Last Admin: 02/16/20 09:42 Dose: 120 ml Documented by: Ondansetron HCl (Ondansetron 4 Mg/2 Ml Vial) 4 mg IV Q8H PRN PRN PRN Reason: NAUSEA/VOMITING Prednisone (Prednisone 5 Mg Tablet) 7.5 mg PO DAILY@0800 [facility] Last Admin: 02/16/20 09:41 Dose: 7.5 mg Documented by: Sodium Chloride (0.9% Saline Lock 10 Ml Syringe) 10 - 40 ml IV UD PRN PRN Reason: SALINE FLUSH Last Admin: 02/16/20 09:46 Dose: 10 ml Documented by: Sodium Chloride (Sodium Chloride 0.65% 1 [place].Btl) 2 spray NASAL TID PRN PRN PRN Reason: NASAL DRYNESS Last Admin: 02/15/20 21:12 Dose: 2 spray Documented by: Tacrolimus (Tacrolimus Anhydrous 1 Mg Capsule) 1 mg PO BID [facility] Last Admin: 02/16/20 09:39 Dose: 1 mg Documented by: Trimethoprim/Sulfamethoxazole (Smz/Tmp Ds Tablet) [facility] Last Admin: 02/16/20 09:41 Dose: 0.5 tablet Documented by: Medical Necessity - Tobacco Use Smoking Status: Former smoker Tobacco Use: Cigarettes - smoked up until he was admitted with COVID about 1ppd Assessment/Plan All Active Problems (Last Reviewed 02/12/20 @ 15:[address] Fransisca Saucedo, DO) TUCKER (acute kidney injury) (Resolved) Leukocytosis (Acute) Acute respiratory failure with hypoxia (Acute) a fib with rvr (Resolved) 1. Acute on chronic hypoxic respiratory failure-multifactorial secondary to recent COVID-19 pneumonitis, questionable pulmonary fibrosis and acute heart failure with preserved ejection fraction. Pulmonary medicine following. Sputum culture shows normal respiratory chevy. Antibiotics discontinued. Continue supplement oxygen to maintain O2 at above 90%. Continue IV Lasix 40 mg twice daily. Strict I&O. Daily weight. Echocardiogram demonstrates an EF of 70%. As needed albuterol aerosol. Patient wheezing on exam, will begin IV Solu-Medrol given minimal improvement with current treatments. 2. Paroxysmal atrial fibrillation with RVR-rate now stable. Continue amiodarone, metoprolol, Eliquis. 3. Abnormal troponin-suspect demand ischemia as result of #1/#2. Enzymes trended down. Echocardiogram demonstrates an EF of 70%, stage II diastolic dysfunction, mild aortic valve insufficiency. 4. Mild transaminitis-stable, recommend outpatient follow-up. 5. Chronic kidney disease stage III-history of renal transplant 2005. Continue Prograf, prednisone, Bactrim. Nephrology consulted. 6. Hypertension-stable, continue metoprolol. 7. Hyperlipidemia-continue statin. 8. GERD-continue H2 blockers. 9. Chronic normocytic anemia-stable, trend CBC. DVT prophylaxis- Eliquis Discharge planning: [facility] when medically stable. This patient was seen by ZAYRA Ortiz under the supervision of Dr. Fernandez. <Mindy Fernandez - Last Filed: 02/16/20 15:57> - Physical Exam Vitals/I&O's: Vital Signs Temp Pulse Resp BP Pulse Ox 98.1 F 94 25 H 122/78 H 95 02/16/20 14:30 02/16/20 14:30 02/16/20 14:30 02/16/20 14:30 02/16/20 14:30 Oxygen Flow Rate (L/min) 6 Oxygen Delivery Method Nasal Cannula Weight: 149 lb 7.574 oz Body Mass Index (BMI) 24.9 Intake and Output for Last 24 Hours 02/14/20 02/15/20 02/16/20 23:59 23:59 23:59 Intake Total 866.67 / 866.67 865 / 865 1000 / 1000 Output Total 2350 / 2350 1825 / 1825 1100 / 1100 Balance -1483.33 / -1483.33 -960 / -960 -100 / -100 Microbiology Past 72 Hours 02/12/20 22:50 Sputum, Expectorated/Coughed Gram Stain - Final 02/12/20 22:50 Sputum, Expectorated/Coughed Respiratory Culture - Final Presumptive C albicans 02/12/20 13:15 Blood Culture (Wb) - Right Forearm Blood Culture - Preliminary No growth in 48 hours. Laboratory Results 02/12/20 13:15: Diff Path Review Reviewed 02/13/20 05:57: Diff Path Review Reviewed 02/14/20 02:00: Diff Path Review Reviewed 02/15/20 02:08: Diff Path Review Reviewed 02/16/20 05:28: WBC 14.0 H, RBC 3.38 L, Hgb 8.8 L, Hct 31.3 L, MCV 92.6, MCH 26.0 L, MCHC 28.1 L D, RDW Std Deviation 50.2 H, RDW Coeff of Genaro 15.0 H, Plt Count 349, MPV 9.0 02/16/20 05:28: Sodium 138, Potassium 3.7, Chloride 103, Carbon Dioxide 31.0, Anion Gap 4 L, BUN 27 H, Creatinine 1.63 H, Estim Creat Clear Calc 45.07, Est GFR (MDRD) Af Amer 57 L, Est GFR (MDRD) Non-Af 47 L, BUN/Creatinine Ratio 16.6, Glucose 116 H, Calcium 9.6, Total Bilirubin 0.30, AST 109 H, ALT 189 H, Alkaline Phosphatase 78, Total Protein 6.8, Albumin 1.9 L, Globulin 4.9 H, Albumin/Globulin Ratio 0.4 L Current Medications Acetaminophen (Acetaminophen 325 Mg Tablet) 650 mg PO Q6H PRN PRN PRN Reason: Pain Score 1-10/Temp > 100.7 F Last Admin: 02/16/20 04:20 Dose: 650 mg Documented by: Al Hydroxide/Mg Hydroxide (Mag Hydrox/Al Hydrox/Simeth 30 Ml Udc) 30 ml PO Q6H PRN PRN PRN Reason: Gastric Burning Albuterol Sulfate (Albuterol 2.5 Mg/3 Ml Vial.Neb.) 2.5 mg INHALATION Q2H PRN PRN PRN Reason: SOB/Wheezing Last Admin: 02/13/20 12:20 Dose: 2.5 mg Documented by: Amiodarone HCl (Amiodarone 200 Mg Tablet) 200 mg PO BID [facility] Stop: 02/18/20 22:01 Last Admin: 02/16/20 09:42 Dose: 200 mg Documented by: Apixaban (Apixaban 5 Mg Tablet) 5 mg PO BID [facility] Last Admin: 02/16/20 09:39 Dose: 5 mg Documented by: Aspirin (Aspirin 81 Mg Tab.Chew) 81 mg PO DAILY@0800 [facility] Last Admin: 02/16/20 09:40 Dose: 81 mg Documented by: Atorvastatin Calcium (Atorvastatin Calcium 10 Mg Tablet) 10 mg PO QHS [facility] Last Admin: 02/15/20 21:13 Dose: 10 mg Documented by: Calamine/Phenol (Menthol/Lanolin/Calamine/Znox 113 Gm Tube) 1 applic TOPICAL BID [facility]; Protocol Last Admin: 02/16/20 09:43 Dose: 1 applicatio Documented by: Docusate Sodium (Docusate Sodium 100 Mg Capsule) 100 mg PO BID PRN PRN PRN Reason: Constipation Famotidine (Famotidine 20 Mg Tablet) 20 mg PO DAILY [facility] Last Admin: 02/16/20 09:39 Dose: 20 mg Documented by: Furosemide (Furosemide 40 Mg/4 Ml Vial) 40 mg IV BIDLX [facility] Last Admin: 02/16/20 09:42 Dose: 40 mg Documented by: Guaifenesin (Guaifenesin 10 Ml Udc (200mg/10ml)) 20 ml PO Q4H PRN PRN PRN Reason: COUGH Lorazepam (Lorazepam 2 Mg/Ml Syringe) 0.5 mg IV Q6H PRN PRN PRN Reason: anxiety with BIPAP Last Admin: 02/13/20 12:05 Dose: 0.5 mg Documented by: Melatonin (Melatonin 3 Mg Tablet) 3 mg PO QHS PRN PRN PRN Reason: INSOMNIA Methylprednisolone (Methylprednisolone 40 Mg/Ml Vial) 40 mg IV Q8 [facility] Last Admin: 02/16/20 14:52 Dose: 40 mg Documented by: Metoprolol Tartrate (Metoprolol Tartrate 100 Mg Tablet) 100 mg PO BID [facility] Last Admin: 02/16/20 09:40 Dose: 100 mg Documented by: Nutritional Formula (Lactose Free) (Ensure Enlive 120 Ml Liquid) 120 ml PO 4X/DAY [facility] Last Admin: 02/16/20 15:07 Dose: 120 ml Documented by: Ondansetron HCl (Ondansetron 4 Mg/2 Ml Vial) 4 mg IV Q8H PRN PRN PRN Reason: NAUSEA/VOMITING Prednisone (Prednisone 5 Mg Tablet) 7.5 mg PO DAILY@0800 [facility] Last Admin: 02/16/20 09:41 Dose: 7.5 mg Documented by: Sodium Chloride (0.9% Saline Lock 10 Ml Syringe) 10 - 40 ml IV UD PRN PRN Reason: SALINE FLUSH Last Admin: 02/16/20 14:52 Dose: 10 ml Documented by: Sodium Chloride (Sodium Chloride 0.65% 1 [place].Btl) 2 spray NASAL TID PRN PRN PRN Reason: NASAL DRYNESS Last Admin: 02/16/20 14:53 Dose: 2 spray Documented by: Tacrolimus (Tacrolimus Anhydrous 1 Mg Capsule) 1 mg PO BID [facility] Last Admin: 02/16/20 09:39 Dose: 1 mg Documented by: Trimethoprim/Sulfamethoxazole (Smz/Tmp Ds Tablet) [facility] Last Admin: 02/16/20 09:41 Dose: 0.5 tablet Documented by: Assessment/Plan Patient seen by Zee IVERSON under my supervision Patient seen and examined. He has been managed for acute on chronic hypoxic respiratory failure due to recent Covid infection as well as questionable pulmonary fibrosis and acute heart failure preserved ejection fraction. Patient still is visibly short of breath today and was tachypneic. He does complain of still feeling short of breath. He is being diuresed with IV Lasix. Review of systems otherwise negative. Pulmonology on board. O/E: Vital Signs Temp Pulse Resp BP Pulse Ox 98.1 F 94 25 H 122/78 H 95 02/16/20 14:30 02/16/20 14:30 02/16/20 14:30 02/16/20 14:30 02/16/20 14:30 General: Alert, Oriented x3, Cooperative HEENT: Atraumatic, PERRLA, EOMI, Normocephalic Neck: Supple, No JVD, Negative Carotid Bruits Lungs: Diminished, Rales, Wheezes, tachypneic, on 6L of oxygen. Cardiovascular: Regular rate, Regular Rhythm, Murmur Abdomen: Bowel Sounds Present, Soft, Non Tender, Non-Distended Extremities: No clubbing, No cyanosis, No edema, Capillary Refill Less than 3 Seconds Skin: No rashes, No breakdown Musculoskeletal: No Tenderness to Palpation of Joints or Extremities Neurological: Cranial nerves II-XII grossly intact, Neuro grossly intact Psych/Mental Status: Flat Affect Continue diuresis with IV Lasix. Monitor intake and output. Titrate oxygen to maintain saturation above 90%. Start on IV steroids. Oral steroids on hold. Pulmonology on board. Nephrology also on board. In Cumulative negative balance by 3.5 L. Continue amiodarone for A. fib as well as Eliquis. As per Zee Jaramillo [employer] MANAGER-see his note which I reviewed and endorsed. Inpatient E&M: 63164 Subs Hosp L3
[2020-02-16 13:12] LABS: Pathologist Review Reviewed
[2020-02-16 13:19] LABS: Pathologist Review Reviewed
[2020-02-16 13:25] LABS: Pathologist Review Reviewed
[2020-02-16 13:32] LABS: Pathologist Review Reviewed
--- NOTE | 2020-02-16 14:36 | PCM.PN.PUL ---
Patient Problems: Active and Suspected Problems (Last Reviewed 02/12/20 @ 15:[address] Fransisca Saucedo, DO) Leukocytosis (Acute) Acute respiratory failure with hypoxia (Acute) Subjective: Patient did okay overnight. Patient continues to require significant nasal cannula oxygen to maintain saturations despite being anticoagulated with Eliquis and Lasix IV twice daily. Patient with conversational dyspnea, but denies any pain or GI symptoms. - Physical Exam Vitals/I&O's: Vital Signs Temp Pulse Resp BP Pulse Ox 36.8 C 87 35 H 116/77 95 02/16/20 12:00 02/16/20 12:00 02/16/20 12:00 02/16/20 12:00 02/16/20 12:00 Oxygen Flow Rate (L/min) 5 Oxygen Delivery Method Nasal Cannula Weight: 67.8 kg Body Mass Index (BMI) 24.9 Intake and Output for Last 24 Hours 02/14/20 02/15/20 02/16/20 23:59 23:59 23:59 Intake Total 866.67 / 866.67 865 / 865 500 / 500 Output Total 2350 / 2350 1825 / 1825 750 / 750 Balance -1483.33 / -1483.33 -960 / -960 -250 / -250 General: Alert, Oriented x3, Cooperative, - - Mild to moderate conversational dyspnea HEENT: Atraumatic, PERRLA, EOMI, Normocephalic, - - No scleral icterus or injection noted Oral: Moist Mucosa, No Gingival or Mucosal Lesions/ Ulcerations Neck: Supple, No Nodes, Trachea Midline, JVD, Right Lungs: No rhonchi, No wheeze, Diminished, Rales - Bilateral, - - Symmetric expansion. Cardiovascular: Regular rate, Regular Rhythm, Normal S1, Normal S2, Murmur - Unchanged from previous, No rub noted, No Gallop Abdomen: Bowel Sounds Present, Soft, Non Tender, Non-Distended Extremities: No clubbing, No cyanosis, No edema Skin: No rashes, No breakdown Musculoskeletal: No Tenderness to Palpation of Joints or Extremities Lymphatic: No Cervical, Supraclavicular, or Inguinal Adenopathy Neurological: Cranial nerves II-XII grossly intact, Neuro grossly intact, Motor Exam 5/5 strength throughout Psych/Mental Status: Appropriate, Anxious Microbiology Past 72 Hours 02/12/20 22:50 Sputum, Expectorated/Coughed Gram Stain - Final 02/12/20 22:50 Sputum, Expectorated/Coughed Respiratory Culture - Final Presumptive C albicans 02/12/20 13:15 Blood Culture (Wb) - Right Forearm Blood Culture - Preliminary No growth in 48 hours. Laboratory Results 02/12/20 13:15: Diff Path Review Reviewed 02/13/20 05:57: Diff Path Review Reviewed 02/14/20 02:00: Diff Path Review Reviewed 02/15/20 02:08: Diff Path Review Reviewed 02/16/20 05:28: WBC 14.0 H, RBC 3.38 L, Hgb 8.8 L, Hct 31.3 L, MCV 92.6, MCH 26.0 L, MCHC 28.1 L D, RDW Std Deviation 50.2 H, RDW Coeff of Genaro 15.0 H, Plt Count 349, MPV 9.0 02/16/20 05:28: Sodium 138, Potassium 3.7, Chloride 103, Carbon Dioxide 31.0, Anion Gap 4 L, BUN 27 H, Creatinine 1.63 H, Estim Creat Clear Calc 45.07, Est GFR (MDRD) Af Amer 57 L, Est GFR (MDRD) Non-Af 47 L, BUN/Creatinine Ratio 16.6, Glucose 116 H, Calcium 9.6, Total Bilirubin 0.30, AST 109 H, ALT 189 H, Alkaline Phosphatase 78, Total Protein 6.8, Albumin 1.9 L, Globulin 4.9 H, Albumin/Globulin Ratio 0.4 L Current Medications Acetaminophen (Acetaminophen 325 Mg Tablet) 650 mg PO Q6H PRN PRN PRN Reason: Pain Score 1-10/Temp > 100.7 F Last Admin: 02/16/20 04:20 Dose: 650 mg Documented by: Al Hydroxide/Mg Hydroxide (Mag Hydrox/Al Hydrox/Simeth 30 Ml Udc) 30 ml PO Q6H PRN PRN PRN Reason: Gastric Burning Albuterol Sulfate (Albuterol 2.5 Mg/3 Ml Vial.Neb.) 2.5 mg INHALATION Q2H PRN PRN PRN Reason: SOB/Wheezing Last Admin: 02/13/20 12:20 Dose: 2.5 mg Documented by: Amiodarone HCl (Amiodarone 200 Mg Tablet) 200 mg PO BID [facility] Stop: 02/18/20 22:01 Last Admin: 02/16/20 09:42 Dose: 200 mg Documented by: Apixaban (Apixaban 5 Mg Tablet) 5 mg PO BID [facility] Last Admin: 02/16/20 09:39 Dose: 5 mg Documented by: Aspirin (Aspirin 81 Mg Tab.Chew) 81 mg PO DAILY@0800 [facility] Last Admin: 02/16/20 09:40 Dose: 81 mg Documented by: Atorvastatin Calcium (Atorvastatin Calcium 10 Mg Tablet) 10 mg PO QHS [facility] Last Admin: 02/15/20 21:13 Dose: 10 mg Documented by: Calamine/Phenol (Menthol/Lanolin/Calamine/Znox 113 Gm Tube) 1 applic TOPICAL BID [facility]; Protocol Last Admin: 02/16/20 09:43 Dose: 1 applicatio Documented by: Docusate Sodium (Docusate Sodium 100 Mg Capsule) 100 mg PO BID PRN PRN PRN Reason: Constipation Famotidine (Famotidine 20 Mg Tablet) 20 mg PO DAILY [facility] Last Admin: 02/16/20 09:39 Dose: 20 mg Documented by: Furosemide (Furosemide 40 Mg/4 Ml Vial) 40 mg IV BIDLX [facility] Last Admin: 02/16/20 09:42 Dose: 40 mg Documented by: Guaifenesin (Guaifenesin 10 Ml Udc (200mg/10ml)) 20 ml PO Q4H PRN PRN PRN Reason: COUGH Lorazepam (Lorazepam 2 Mg/Ml Syringe) 0.5 mg IV Q6H PRN PRN PRN Reason: anxiety with BIPAP Last Admin: 02/13/20 12:05 Dose: 0.5 mg Documented by: Melatonin (Melatonin 3 Mg Tablet) 3 mg PO QHS PRN PRN PRN Reason: INSOMNIA Methylprednisolone (Methylprednisolone 40 Mg/Ml Vial) 40 mg IV Q8 [facility] Metoprolol Tartrate (Metoprolol Tartrate 100 Mg Tablet) 100 mg PO BID [facility] Last Admin: 02/16/20 09:40 Dose: 100 mg Documented by: Nutritional Formula (Lactose Free) (Ensure Enlive 120 Ml Liquid) 120 ml PO 4X/DAY [facility] Last Admin: 02/16/20 09:42 Dose: 120 ml Documented by: Ondansetron HCl (Ondansetron 4 Mg/2 Ml Vial) 4 mg IV Q8H PRN PRN PRN Reason: NAUSEA/VOMITING Prednisone (Prednisone 5 Mg Tablet) 7.5 mg PO DAILY@0800 [facility] Last Admin: 02/16/20 09:41 Dose: 7.5 mg Documented by: Sodium Chloride (0.9% Saline Lock 10 Ml Syringe) 10 - 40 ml IV UD PRN PRN Reason: SALINE FLUSH Last Admin: 02/16/20 09:46 Dose: 10 ml Documented by: Sodium Chloride (Sodium Chloride 0.65% 1 [place].Btl) 2 spray NASAL TID PRN PRN PRN Reason: NASAL DRYNESS Last Admin: 02/15/20 21:12 Dose: 2 spray Documented by: Tacrolimus (Tacrolimus Anhydrous 1 Mg Capsule) 1 mg PO BID [facility] Last Admin: 02/16/20 09:39 Dose: 1 mg Documented by: Trimethoprim/Sulfamethoxazole (Smz/Tmp Ds Tablet) 0.5 tablet PO DAILYCM [facility] Last Admin: 02/16/20 09:41 Dose: 0.5 tablet Documented by: Medical Necessity - Tobacco Use Smoking Status: Former smoker Tobacco Use: Cigarettes - smoked up until he was admitted with COVID about 1ppd Assessment/Plan All Active Problems (Last Reviewed 02/12/20 @ 15:[address] Fransisca Saucedo, DO) TUCKER (acute kidney injury) (Resolved) Leukocytosis (Acute) Acute respiratory failure with hypoxia (Acute) a fib with rvr (Resolved) RECOMMENDATIONS: 1. Continue attempts at diuresis as tolerated by hemodynamics and renal function. 2. Wean supplemental oxygen to maintain saturations at or above 90%. 3. Tacrolimus management per nephrology recommendations. 4. Continue systemic anticoagulation with Eliquis twice daily. 5. Monitor off antibiotics. 6. Encourage incentive spirometer use and mobilize patient as tolerated. IMPRESSIONS: 1. Acute on chronic hypoxemic respiratory failure The patient's chest x-ray findings are likely due to the sequelae of recent COVID-19 coupled with superimposed pulmonary edema. I would not expect significant improvement in the patient's chest x-ray, given that he was just discharged from the hospital with COVID-19 pneumonia. Radiographic improvement will lag behind the patient's clinical improvement. At this time, the patient will be diuresed, over concerns for decompensated heart failure. His supplemental oxygen will be weaned to maintain oxygen saturations at or above 90%. Continue to monitor off of antibiotics. Reasonable to initiate empiric steroids given failure to improve over 4 days. Renal function continues to improve despite diuretics suggesting improved starting forces leading to better renal perfusion. Would continue with diuretics as tolerated. Defer to nephrology on tacrolimus dosing 2. Chronic kidney disease status post renal transplantation Given the patient's renal transplantation history along with need for volume optimization, nephrology is following to assist with medical management. 3. Paroxysmal atrial fibrillation with RVR Continue outpatient rate/rhythm control strategy. Recent echo shows diastolic dysfunction, which would be exacerbated by accelerated heart rate. Rate is relatively controlled at this time. 4. Hypertension/hyperlipidemia/elevated troponin Complicates care, management, recovery and prognosis. Continue home medications as indicated. Inpatient E&M: 60488 Subs Hosp L2
[2020-02-16] MEDS: Sodium Chloride 0.65% 1 SPRAY SPRAY.BTL 2 SPRAY NASAL (14:53)
--- NOTE | 2020-02-16 15:03 | PCM.PN.REN ---
Patient Problems: Active and Suspected Problems (Last Reviewed 02/12/20 @ 15:[address] Fransisca Saucedo, DO) Leukocytosis (Acute) Acute respiratory failure with hypoxia (Acute) Subjective: no new events remains dyspneic - Physical Exam Vitals/I&O's: Vital Signs Temp Pulse Resp BP Pulse Ox 98.1 F 90 25 H 122/78 H 95 02/16/20 14:30 02/16/20 14:30 02/16/20 14:30 02/16/20 14:30 02/16/20 14:30 Oxygen Flow Rate (L/min) 5 Oxygen Delivery Method Nasal Cannula Weight: 67.8 kg Body Mass Index (BMI) 24.9 Intake and Output for Last 24 Hours 02/14/20 02/15/20 02/16/20 23:59 23:59 23:59 Intake Total 866.67 / 866.67 865 / 865 500 / 500 Output Total 2350 / 2350 1825 / 1825 750 / 750 Balance -1483.33 / -1483.33 -960 / -960 -250 / -250 General: Alert, Oriented x3, Cooperative HEENT: Atraumatic, PERRLA, EOMI, Normocephalic Neck: Supple, No JVD, Negative Carotid Bruits Lungs: Clear to auscultation, Normal air movement Cardiovascular: Regular rate, No murmurs Abdomen: Bowel Sounds Present, Soft, Non Tender Extremities: No edema, Capillary Refill Less than 3 Seconds Skin: No rashes, No breakdown Musculoskeletal: No Tenderness to Palpation of Joints or Extremities Neurological: Cranial nerves II-XII grossly intact Psych/Mental Status: Normal Affect, Appropriate Microbiology Past 72 Hours 02/12/20 22:50 Sputum, Expectorated/Coughed Gram Stain - Final 02/12/20 22:50 Sputum, Expectorated/Coughed Respiratory Culture - Final Presumptive C albicans 02/12/20 13:15 Blood Culture (Wb) - Right Forearm Blood Culture - Preliminary No growth in 48 hours. Laboratory Results 02/12/20 13:15: Diff Path Review Reviewed 02/13/20 05:57: Diff Path Review Reviewed 02/14/20 02:00: Diff Path Review Reviewed 02/15/20 02:08: Diff Path Review Reviewed 02/16/20 05:28: WBC 14.0 H, RBC 3.38 L, Hgb 8.8 L, Hct 31.3 L, MCV 92.6, MCH 26.0 L, MCHC 28.1 L D, RDW Std Deviation 50.2 H, RDW Coeff of Genaro 15.0 H, Plt Count 349, MPV 9.0 02/16/20 05:28: Sodium 138, Potassium 3.7, Chloride 103, Carbon Dioxide 31.0, Anion Gap 4 L, BUN 27 H, Creatinine 1.63 H, Estim Creat Clear Calc 45.07, Est GFR (MDRD) Af Amer 57 L, Est GFR (MDRD) Non-Af 47 L, BUN/Creatinine Ratio 16.6, Glucose 116 H, Calcium 9.6, Total Bilirubin 0.30, AST 109 H, ALT 189 H, Alkaline Phosphatase 78, Total Protein 6.8, Albumin 1.9 L, Globulin 4.9 H, Albumin/Globulin Ratio 0.4 L Current Medications Acetaminophen (Acetaminophen 325 Mg Tablet) 650 mg PO Q6H PRN PRN PRN Reason: Pain Score 1-10/Temp > 100.7 F Last Admin: 02/16/20 04:20 Dose: 650 mg Documented by: Al Hydroxide/Mg Hydroxide (Mag Hydrox/Al Hydrox/Simeth 30 Ml Udc) 30 ml PO Q6H PRN PRN PRN Reason: Gastric Burning Albuterol Sulfate (Albuterol 2.5 Mg/3 Ml Vial.Neb.) 2.5 mg INHALATION Q2H PRN PRN PRN Reason: SOB/Wheezing Last Admin: 02/13/20 12:20 Dose: 2.5 mg Documented by: Amiodarone HCl (Amiodarone 200 Mg Tablet) 200 mg PO BID [facility] Stop: 02/18/20 22:01 Last Admin: 02/16/20 09:42 Dose: 200 mg Documented by: Apixaban (Apixaban 5 Mg Tablet) 5 mg PO BID [facility] Last Admin: 02/16/20 09:39 Dose: 5 mg Documented by: Aspirin (Aspirin 81 Mg Tab.Chew) 81 mg PO DAILY@0800 [facility] Last Admin: 02/16/20 09:40 Dose: 81 mg Documented by: Atorvastatin Calcium (Atorvastatin Calcium 10 Mg Tablet) 10 mg PO QHS [facility] Last Admin: 02/15/20 21:13 Dose: 10 mg Documented by: Calamine/Phenol (Menthol/Lanolin/Calamine/Znox 113 Gm Tube) 1 applic TOPICAL BID [facility]; Protocol Last Admin: 02/16/20 09:43 Dose: 1 applicatio Documented by: Docusate Sodium (Docusate Sodium 100 Mg Capsule) 100 mg PO BID PRN PRN PRN Reason: Constipation Famotidine (Famotidine 20 Mg Tablet) 20 mg PO DAILY [facility] Last Admin: 02/16/20 09:39 Dose: 20 mg Documented by: Furosemide (Furosemide 40 Mg/4 Ml Vial) 40 mg IV BIDLX [facility] Last Admin: 02/16/20 09:42 Dose: 40 mg Documented by: Guaifenesin (Guaifenesin 10 Ml Udc (200mg/10ml)) 20 ml PO Q4H PRN PRN PRN Reason: COUGH Lorazepam (Lorazepam 2 Mg/Ml Syringe) 0.5 mg IV Q6H PRN PRN PRN Reason: anxiety with BIPAP Last Admin: 02/13/20 12:05 Dose: 0.5 mg Documented by: Melatonin (Melatonin 3 Mg Tablet) 3 mg PO QHS PRN PRN PRN Reason: INSOMNIA Methylprednisolone (Methylprednisolone 40 Mg/Ml Vial) 40 mg IV Q8 [facility] Last Admin: 02/16/20 14:52 Dose: 40 mg Documented by: Metoprolol Tartrate (Metoprolol Tartrate 100 Mg Tablet) 100 mg PO BID [facility] Last Admin: 02/16/20 09:40 Dose: 100 mg Documented by: Nutritional Formula (Lactose Free) (Ensure Enlive 120 Ml Liquid) 120 ml PO 4X/DAY [facility] Last Admin: 02/16/20 09:42 Dose: 120 ml Documented by: Ondansetron HCl (Ondansetron 4 Mg/2 Ml Vial) 4 mg IV Q8H PRN PRN PRN Reason: NAUSEA/VOMITING Prednisone (Prednisone 5 Mg Tablet) 7.5 mg PO DAILY@0800 [facility] Last Admin: 02/16/20 09:41 Dose: 7.5 mg Documented by: Sodium Chloride (0.9% Saline Lock 10 Ml Syringe) 10 - 40 ml IV UD PRN PRN Reason: SALINE FLUSH Last Admin: 02/16/20 14:52 Dose: 10 ml Documented by: Sodium Chloride (Sodium Chloride 0.65% 1 [place].Btl) 2 spray NASAL TID PRN PRN PRN Reason: NASAL DRYNESS Last Admin: 02/16/20 14:53 Dose: 2 spray Documented by: Tacrolimus (Tacrolimus Anhydrous 1 Mg Capsule) 1 mg PO BID [facility] Last Admin: 02/16/20 09:39 Dose: 1 mg Documented by: Trimethoprim/Sulfamethoxazole (Smz/Tmp Ds Tablet) 0.5 tablet PO DAILYCM [facility] Last Admin: 02/16/20 09:41 Dose: 0.5 tablet Documented by: Medical Necessity - Tobacco Use Smoking Status: Former smoker Tobacco Use: Cigarettes - smoked up until he was admitted with COVID about 1ppd Assessment/Plan All Active Problems (Last Reviewed 02/12/20 @ 15:[address] Fransisca Saucedo, DO) TUCKER (acute kidney injury) (Resolved) Leukocytosis (Acute) Acute respiratory failure with hypoxia (Acute) a fib with rvr (Resolved) history of kidney transplant CKD stage III covid pneumonia Possible diastolic heart failure Remains significantly symptomatic. Tachypneic even with minimal conversation. Beings started on steroids today. Creatinine remains stable. Continue Lasix.
--- NOTE | 2020-02-16 15:38 | CASEMGMT ---
SW spoke w/pt in room, confirmed plan is for pt to return to [facility]. SW called [facility], they will take pt back. Updates faxed, SW will continue to follow. [facility]
--- NOTE | 2020-02-16 22:38 | CPS ---
pt refuses bipap. RT offered again this evening before placing on venturi mask at 50%. pt declined
[2020-02-16] MEDS: LORazepam 2 MG/ML Syringe 0.5 MG IV (23:28)
[2020-02-17] VITALS (19 sets, daily range): BP systolic 133–163; BP diastolic 77–104; PULSE 89–105; RESP 24–87; TEMP 36.6–37.3; O2SAT 72–99
[2020-02-17] MEDS: 0.9% Saline Lock 10 ML Syringe IV ×5 (05:05→21:05)
[2020-02-17 06:43] LABS: Hematocrit 31.7 % (40-54); Mean Corp Hgb Conc 28.4 g/dL (32-36); Mean Corpuscular Hgb 26.2 pg (27.0-32.0); Mean Corpuscular Volume 92.4 fL (80-94); Mean Platelet Vol. 9.2 fl (6.2-12.0); Platelet Count 378 K/mm3 (150-450); RBC Distribution Width CV 14.6 % (11.6-14.6); RBC Distribution Width SD 49.7 fl (35.1-43.9); Red Blood Count 3.43 M/mm3 (4.6-6.2); White Blood Count 11.4 K/mm3 (4.4-11.0)
[2020-02-17 07:11] LABS: ALB/GLOB Ratio 0.4 RATIO (0.9-2.4); AST(SGOT) 90 U/L (15-37); Alanine Aminotransfer ALT/SGPT 217 U/L (16-61); Albumin, Serum 2.2 g/dL (3.2-5.0); Alkaline Phosphatase 85 U/L (45-117); Anion Gap 3 (5-15); BUN 34 mg/dL (7-18); Calcium,Total 9.9 mg/dL (8.5-10.1); Chloride 100 mmol/L (98-107); Creatinine, Serum 1.89 mg/dL (0.70-1.30); EST Glomerular Filtration Rate 40 mL/min (>60); Est Glom Filt Rate - Afr Amer 48 mL/min (>60); Estimated Creatinine Clearance 38.87 ml/min; Globulin 5.3 g/dL (2.2-4.2); Glucose 207 mg/dL (74-106); Potassium 4.8 mmol/L (3.5-5.1); Protein, Total 7.5 g/dL (6.4-8.2); Sodium Level 137 mmol/L (136-145)
[2020-02-17] MEDS: APIXABAN 5 MG TABLET PO ×2 (09:45→21:04)
[2020-02-17] MEDS: Famotidine 20 MG Tablet PO (09:45)
[2020-02-17] MEDS: Metoprolol Tartrate 100 MG Tablet PO ×2 (09:45→21:05)
[2020-02-17] MEDS: Tacrolimus Anhydrous 1 MG Capsule PO ×2 (09:45→21:05)
[2020-02-17] MEDS: Furosemide 40 MG/4 ML Vial IV ×2 (09:45→17:57)
[2020-02-17] MEDS: Smz/Tmp Ds Tablet 0.5 TABLET PO (09:45)
[2020-02-17] MEDS: Aspirin 81 MG TAB.CHEW PO (09:45)
[2020-02-17] MEDS: Amiodarone 200 MG Tablet PO ×2 (09:45→21:04)
[2020-02-17] MEDS: Menthol/Lanolin/Calamine/Znox 113 GM Tube 1 APPLIC TOPICAL ×2 (09:46→21:04)
--- NOTE | 2020-02-17 12:00 | PCM.PROGNOTE ---
<ClintZee PARENT EDUCATOR - Last Filed: 02/17/20 12:31> Patient Problems: Active and Suspected Problems (Last Reviewed 02/12/20 @ 15:[address] Fransisca Saucedo DO) Leukocytosis (Acute) Acute respiratory failure with hypoxia (Acute) Subjective: Patient seen and examined. States shortness of breath is about the same. Denies cough, fever, chills. Reports nasal dryness and stuffiness. - Physical Exam Vitals/I&O's: Vital Signs Temp Pulse Resp BP Pulse Ox 98.3 F 96 87 H 133/83 H 92 02/17/20 11:30 02/17/20 11:30 02/17/20 11:30 02/17/20 11:30 02/17/20 11:30 Oxygen Flow Rate (L/min) 6 Oxygen Delivery Method Venturi Mask Weight: 155 lb 3.287 oz Body Mass Index (BMI) 24.9 Intake and Output for Last 24 Hours 02/15/20 02/16/20 02/17/20 23:59 23:59 23:59 Intake Total 865 / 865 1000 / 1220 820 / 820 Output Total 1825 / 1825 1100 / 1450 650 / 650 Balance -960 / -960 -100 / -230 170 / 170 General: Alert, Oriented x3, Cooperative HEENT: Atraumatic, PERRLA, EOMI, Normocephalic Neck: Supple, No JVD, Negative Carotid Bruits Lungs: Clear to auscultation, Diminished Cardiovascular: Regular rate, Regular Rhythm, Murmur Abdomen: Bowel Sounds Present, Soft, Non Tender, Non-Distended Extremities: No clubbing, No cyanosis, No edema, Capillary Refill Less than 3 Seconds Skin: No rashes, No breakdown Musculoskeletal: No Tenderness to Palpation of Joints or Extremities Neurological: Cranial nerves II-XII grossly intact, Neuro grossly intact Psych/Mental Status: Flat Affect Microbiology Past 72 Hours 02/12/20 22:50 Sputum, Expectorated/Coughed Gram Stain - Final 02/12/20 22:50 Sputum, Expectorated/Coughed Respiratory Culture - Final Presumptive C albicans 02/12/20 13:15 Blood Culture (Wb) - Right Forearm Blood Culture - Preliminary No growth in 48 hours. Laboratory Results 02/12/20 13:15: Diff Path Review Reviewed 02/13/20 05:57: Diff Path Review Reviewed 02/14/20 02:00: Diff Path Review Reviewed 02/15/20 02:08: Diff Path Review Reviewed 02/17/20 06:05: Sodium 137, Potassium 4.8, Chloride 100, Carbon Dioxide 34.0 H, Anion Gap 3 L, BUN 34 H, Creatinine 1.89 H, Estim Creat Clear Calc 38.87, Est GFR (MDRD) Af Amer 48 L, Est GFR (MDRD) Non-Af 40 L, BUN/Creatinine Ratio 18.0, Glucose 207 H, Calcium 9.9, Total Bilirubin 0.20, AST 90 H, ALT 217 H, Alkaline Phosphatase 85, Total Protein 7.5, Albumin 2.2 L, Globulin 5.3 H, Albumin/Globulin Ratio 0.4 L 02/17/20 06:05: WBC 11.4 H, RBC 3.43 L, Hgb 9.0 L, Hct 31.7 L, MCV 92.4, MCH 26.2 L, MCHC 28.4 L, RDW Std Deviation 49.7 H, RDW Coeff of Genaro 14.6, Plt Count 378, MPV 9.2 Current Medications Acetaminophen (Acetaminophen 325 Mg Tablet) 650 mg PO Q6H PRN PRN PRN Reason: Pain Score 1-10/Temp > 100.7 F Last Admin: 02/16/20 04:20 Dose: 650 mg Documented by: Al Hydroxide/Mg Hydroxide (Mag Hydrox/Al Hydrox/Simeth 30 Ml Udc) 30 ml PO Q6H PRN PRN PRN Reason: Gastric Burning Albuterol Sulfate (Albuterol 2.5 Mg/3 Ml Vial.Neb.) 2.5 mg INHALATION Q2H PRN PRN PRN Reason: SOB/Wheezing Last Admin: 02/13/20 12:20 Dose: 2.5 mg Documented by: Amiodarone HCl (Amiodarone 200 Mg Tablet) 200 mg PO BID [facility] Stop: 02/18/20 22:01 Last Admin: 02/17/20 09:45 Dose: 200 mg Documented by: Apixaban (Apixaban 5 Mg Tablet) 5 mg PO BID [facility] Last Admin: 02/17/20 09:45 Dose: 5 mg Documented by: Aspirin (Aspirin 81 Mg Tab.Chew) 81 mg PO DAILY@0800 [facility] Last Admin: 02/17/20 09:45 Dose: 81 mg Documented by: Atorvastatin Calcium (Atorvastatin Calcium 10 Mg Tablet) 10 mg PO QHS [facility] Last Admin: 02/16/20 21:47 Dose: Not Given Documented by: Calamine/Phenol (Menthol/Lanolin/Calamine/Znox 113 Gm Tube) 1 applic TOPICAL BID [facility]; Protocol Last Admin: 02/17/20 09:46 Dose: 1 applicatio Documented by: Docusate Sodium (Docusate Sodium 100 Mg Capsule) 100 mg PO BID PRN PRN PRN Reason: Constipation Famotidine (Famotidine 20 Mg Tablet) 20 mg PO DAILY [facility] Last Admin: 02/17/20 09:45 Dose: 20 mg Documented by: Fluticasone Propionate (Fluticasone 0.05% 1 [place] Nasal.Sry) 2 spray NASAL DAILY [facility] Furosemide (Furosemide 40 Mg/4 Ml Vial) 40 mg IV BIDLX [facility] Last Admin: 02/17/20 09:45 Dose: 40 mg Documented by: Guaifenesin (Guaifenesin 10 Ml Udc (200mg/10ml)) 20 ml PO Q4H PRN PRN PRN Reason: COUGH Lorazepam (Lorazepam 2 Mg/Ml Syringe) 0.5 mg IV Q6H PRN PRN PRN Reason: anxiety with BIPAP Last Admin: 02/16/20 23:28 Dose: 0.5 mg Documented by: Melatonin (Melatonin 3 Mg Tablet) 3 mg PO QHS PRN PRN PRN Reason: INSOMNIA Methylprednisolone (Methylprednisolone 40 Mg/Ml Vial) 40 mg IV Q8 [facility] Last Admin: 02/17/20 05:04 Dose: 40 mg Documented by: Metoprolol Tartrate (Metoprolol Tartrate 100 Mg Tablet) 100 mg PO BID [facility] Last Admin: 02/17/20 09:45 Dose: 100 mg Documented by: Nutritional Formula (Lactose Free) (Ensure Enlive 120 Ml Liquid) 120 ml PO 4X/DAY [facility] Last Admin: 02/17/20 09:45 Dose: 120 ml Documented by: Ondansetron HCl (Ondansetron 4 Mg/2 Ml Vial) 4 mg IV Q8H PRN PRN PRN Reason: NAUSEA/VOMITING Prednisone (Prednisone 5 Mg Tablet) 7.5 mg PO DAILY@0800 [facility] Last Admin: 02/16/20 09:41 Dose: 7.5 mg Documented by: Sodium Chloride (0.9% Saline Lock 10 Ml Syringe) 10 - 40 ml IV UD PRN PRN Reason: SALINE FLUSH Last Admin: 02/17/20 09:46 Dose: 10 ml Documented by: Sodium Chloride (Sodium Chloride 0.65% 1 [place].Btl) 2 spray NASAL TID PRN PRN PRN Reason: NASAL DRYNESS Last Admin: 02/16/20 14:53 Dose: 2 spray Documented by: Tacrolimus (Tacrolimus Anhydrous 1 Mg Capsule) 1 mg PO BID [facility] Last Admin: 02/17/20 09:45 Dose: 1 mg Documented by: Trimethoprim/Sulfamethoxazole (Smz/Tmp Ds Tablet) 0.5 tablet PO DAILYCM [facility] Last Admin: 02/17/20 09:45 Dose: 0.5 tablet Documented by: Medical Necessity - Tobacco Use Smoking Status: Former smoker Tobacco Use: Cigarettes - smoked up until he was admitted with COVID about 1ppd Assessment/Plan All Active Problems (Last Reviewed 02/12/20 @ 15:[address] Fransisca Saucedo, DO) TUCKER (acute kidney injury) (Resolved) Leukocytosis (Acute) Acute respiratory failure with hypoxia (Acute) a fib with rvr (Resolved) 1. Acute on chronic hypoxic respiratory failure-multifactorial secondary to recent COVID-19 pneumonitis, questionable pulmonary fibrosis and acute heart failure with preserved ejection fraction. Pulmonary medicine following. Sputum culture shows normal respiratory chevy. Antibiotics discontinued. Continue supplement oxygen to maintain O2 at above 90%. Continue IV Lasix 40 mg twice daily. Strict I&O. Daily weight. Echocardiogram demonstrates an EF of 70%. As needed albuterol aerosol. Continue IV Solu-Medrol for 24 to 48 hours, if no improvement plan to discontinue. 2. Paroxysmal atrial fibrillation with RVR-rate now stable. Continue amiodarone, metoprolol, Eliquis. 3. Abnormal troponin-suspect demand ischemia as result of #1/#2. Enzymes trended down. Echocardiogram demonstrates an EF of 70%, stage II diastolic dysfunction, mild aortic valve insufficiency. 4. Mild transaminitis-stable, recommend outpatient follow-up. 5. Chronic kidney disease stage III-history of renal transplant 2005. Continue Prograf, prednisone, Bactrim. Nephrology consulted. 6. Hypertension-stable, continue metoprolol. 7. Hyperlipidemia-continue statin. 8. GERD-continue H2 blockers. 9. Chronic normocytic anemia-stable, trend CBC. DVT prophylaxis- Eliquis Discharge planning: [facility] when medically stable. This patient was seen by ZAYRA Ortiz under the supervision of Dr. Fernandez. <RebeccaMindy - Last Filed: 02/17/20 15:03> - Physical Exam Vitals/I&O's: Vital Signs Temp Pulse Resp BP Pulse Ox 98.5 F 97 30 H 141/79 H 91 02/17/20 14:54 02/17/20 14:54 02/17/20 14:54 02/17/20 14:54 02/17/20 14:54 Oxygen Flow Rate (L/min) 9 Oxygen Delivery Method Venturi Mask Weight: 155 lb 3.287 oz Body Mass Index (BMI) 24.9 Intake and Output for Last 24 Hours 02/15/20 02/16/20 02/17/20 23:59 23:59 23:59 Intake Total 865 / 865 1000 / 1220 820 / 820 Output Total 1825 / 1825 1100 / 1450 650 / 650 Balance -960 / -960 -100 / -230 170 / 170 Microbiology Past 72 Hours 02/12/20 13:15 Blood Culture (Wb) - Right Forearm Blood Culture - Final No growth in 5 days. 02/12/20 22:50 Sputum, Expectorated/Coughed Gram Stain - Final 02/12/20 22:50 Sputum, Expectorated/Coughed Respiratory Culture - Final Presumptive C albicans Laboratory Results 02/13/20 05:57: Tacrolimus 3.0 02/17/20 06:05: Sodium 137, Potassium 4.8, Chloride 100, Carbon Dioxide 34.0 H, Anion Gap 3 L, BUN 34 H, Creatinine 1.89 H, Estim Creat Clear Calc 38.87, Est GFR (MDRD) Af Amer 48 L, Est GFR (MDRD) Non-Af 40 L, BUN/Creatinine Ratio 18.0, Glucose 207 H, Calcium 9.9, Total Bilirubin 0.20, AST 90 H, ALT 217 H, Alkaline Phosphatase 85, Total Protein 7.5, Albumin 2.2 L, Globulin 5.3 H, Albumin/Globulin Ratio 0.4 L 02/17/20 06:05: WBC 11.4 H, RBC 3.43 L, Hgb 9.0 L, Hct 31.7 L, MCV 92.4, MCH 26.2 L, MCHC 28.4 L, RDW Std Deviation 49.7 H, RDW Coeff of Genaro 14.6, Plt Count 378, MPV 9.2 Current Medications Acetaminophen (Acetaminophen 325 Mg Tablet) 650 mg PO Q6H PRN PRN PRN Reason: Pain Score 1-10/Temp > 100.7 F Last Admin: 02/16/20 04:20 Dose: 650 mg Documented by: Al Hydroxide/Mg Hydroxide (Mag Hydrox/Al Hydrox/Simeth 30 Ml Udc) 30 ml PO Q6H PRN PRN PRN Reason: Gastric Burning Albuterol Sulfate (Albuterol 2.5 Mg/3 Ml Vial.Neb.) 2.5 mg INHALATION Q2H PRN PRN PRN Reason: SOB/Wheezing Last Admin: 02/13/20 12:20 Dose: 2.5 mg Documented by: Amiodarone HCl (Amiodarone 200 Mg Tablet) 200 mg PO BID [facility] Stop: 02/18/20 22:01 Last Admin: 02/17/20 09:45 Dose: 200 mg Documented by: Apixaban (Apixaban 5 Mg Tablet) 5 mg PO BID [facility] Last Admin: 02/17/20 09:45 Dose: 5 mg Documented by: Aspirin (Aspirin 81 Mg Tab.Chew) 81 mg PO DAILY@0800 [facility] Last Admin: 02/17/20 09:45 Dose: 81 mg Documented by: Atorvastatin Calcium (Atorvastatin Calcium 10 Mg Tablet) 10 mg PO QHS [facility] Last Admin: 02/16/20 21:47 Dose: Not Given Documented by: Calamine/Phenol (Menthol/Lanolin/Calamine/Znox 113 Gm Tube) 1 applic TOPICAL BID [facility]; Protocol Last Admin: 02/17/20 09:46 Dose: 1 applicatio Documented by: Docusate Sodium (Docusate Sodium 100 Mg Capsule) 100 mg PO BID PRN PRN PRN Reason: Constipation Famotidine (Famotidine 20 Mg Tablet) 20 mg PO DAILY [facility] Last Admin: 02/17/20 09:45 Dose: 20 mg Documented by: Fluticasone Propionate (Fluticasone 0.05% 1 [place] Nasal.Sry) 2 spray NASAL DAILY [facility] Last Admin: 02/17/20 14:52 Dose: 2 spray Documented by: Furosemide (Furosemide 40 Mg/4 Ml Vial) 40 mg IV BIDLX [facility] Last Admin: 02/17/20 09:45 Dose: 40 mg Documented by: Guaifenesin (Guaifenesin 10 Ml Udc (200mg/10ml)) 20 ml PO Q4H PRN PRN PRN Reason: COUGH Lorazepam (Lorazepam 2 Mg/Ml Syringe) 0.5 mg IV Q6H PRN PRN PRN Reason: anxiety with BIPAP Last Admin: 02/16/20 23:28 Dose: 0.5 mg Documented by: Melatonin (Melatonin 3 Mg Tablet) 3 mg PO QHS PRN PRN PRN Reason: INSOMNIA Methylprednisolone (Methylprednisolone 40 Mg/Ml Vial) 40 mg IV Q8 [facility] Last Admin: 02/17/20 14:47 Dose: 40 mg Documented by: Metoprolol Tartrate (Metoprolol Tartrate 100 Mg Tablet) 100 mg PO BID [facility] Last Admin: 02/17/20 09:45 Dose: 100 mg Documented by: Nutritional Formula (Lactose Free) (Ensure Enlive 120 Ml Liquid) 120 ml PO 4X/DAY [facility] Last Admin: 02/17/20 14:47 Dose: 120 ml Documented by: Ondansetron HCl (Ondansetron 4 Mg/2 Ml Vial) 4 mg IV Q8H PRN PRN PRN Reason: NAUSEA/VOMITING Prednisone (Prednisone 5 Mg Tablet) 7.5 mg PO DAILY@0800 [facility] Last Admin: 02/16/20 09:41 Dose: 7.5 mg Documented by: Sodium Chloride (0.9% Saline Lock 10 Ml Syringe) 10 - 40 ml IV UD PRN PRN Reason: SALINE FLUSH Last Admin: 02/17/20 14:47 Dose: 10 ml Documented by: Sodium Chloride (Sodium Chloride 0.65% 1 [place].Btl) 2 spray NASAL TID PRN PRN PRN Reason: NASAL DRYNESS Last Admin: 02/16/20 14:53 Dose: 2 spray Documented by: Tacrolimus (Tacrolimus Anhydrous 1 Mg Capsule) 1 mg PO BID [facility] Last Admin: 02/17/20 09:45 Dose: 1 mg Documented by: Trimethoprim/Sulfamethoxazole (Smz/Tmp Ds Tablet) 0.5 tablet PO DAILYCM [facility] Last Admin: 02/17/20 09:45 Dose: 0.5 tablet Documented by: Assessment/Plan Patient seen by Zee IVERSON under my supervision Patient seen and examined. He has been managed for acute on chronic hypoxic respiratory failure due to recent Covid infection as well as questionable pulmonary fibrosis and acute heart failure preserved ejection fraction. Patient still is visibly short of breath today and is tachypneic. He is now requiring 9L of oxygen by nasal canula. He is on IV lasix. Review of systems otherwise negative. Pulmonology on board. O/E: Vital Signs Temp Pulse Resp BP Pulse Ox 98.1 F 94 25 H 122/78 H 95 02/16/20 14:30 02/16/20 14:30 02/16/20 14:30 02/16/20 14:30 02/16/20 14:30 General: Alert, Oriented x3, Cooperative HEENT: Atraumatic, PERRLA, EOMI, Normocephalic Neck: Supple, No JVD, Negative Carotid Bruits Lungs: Diminished, Rales, Wheezes, tachypneic, on 6L of oxygen. Cardiovascular: Regular rate, Regular Rhythm, Murmur Abdomen: Bowel Sounds Present, Soft, Non Tender, Non-Distended Extremities: No clubbing, No cyanosis, No edema, Capillary Refill Less than 3 Seconds Skin: No rashes, No breakdown Musculoskeletal: No Tenderness to Palpation of Joints or Extremities Neurological: Cranial nerves II-XII grossly intact, Neuro grossly intact Psych/Mental Status: Flat Affect Continue diuresis with IV Lasix. Monitor intake and output. Titrate oxygen to maintain saturation above 90%. He is on IV steroids; oral steroids on hold. Continue diuresis. Pulmonology on board. Nephrology also on board. Continue amiodarone for A. fib as well as Eliquis. As per ZAYRA Ortiz's note which I reviewed and endorsed. Inpatient E&M: 64969 Subs Hosp L3
--- NOTE | 2020-02-17 12:38 | CPS ---
Pt on nasal cannula and eating, will put on 50% VM after eating. R.T. increased O2 from 6.5lpm to 9lpm (pt takes a while to recover his Sats), checked again at 1255, Sat=90% and he is still eating.
--- NOTE | 2020-02-17 13:54 | CASEMGMT ---
SW called [facility] and left a message inquiring if patient will need insurance authorization to return. Jessica LE MSW
[2020-02-17] MEDS: Fluticasone 0.05% 1 SPRAY NASAL.SRY 2 SPRAY NASAL (14:52)
--- NOTE | 2020-02-17 15:26 | PCM.PN.PUL ---
Patient Problems: Active and Suspected Problems (Last Reviewed 02/12/20 @ 15:[address] Fransisca Saucedo, DO) Leukocytosis (Acute) Acute respiratory failure with hypoxia (Acute) Subjective: Patient feels only slightly better compared to yesterday. Still having significant conversational dyspnea and has been requiring a 50% Ventimask to maintain saturations. - Physical Exam Vitals/I&O's: Vital Signs Temp Pulse Resp BP Pulse Ox 36.9 C 97 30 H 141/79 H 91 02/17/20 14:54 02/17/20 14:54 02/17/20 14:54 02/17/20 14:54 02/17/20 14:54 Oxygen Flow Rate (L/min) 9 Oxygen Delivery Method Venturi Mask Weight: 70.4 kg Body Mass Index (BMI) 24.9 Intake and Output for Last 24 Hours 02/15/20 02/16/20 02/17/20 23:59 23:59 23:59 Intake Total 865 / 865 1000 / 1220 820 / 820 Output Total 1825 / 1825 1100 / 1450 650 / 650 Balance -960 / -960 -100 / -230 170 / 170 General: Alert, Oriented x3, Cooperative, - - Moderate respiratory distress HEENT: Atraumatic, PERRLA, EOMI, Normocephalic, - - No scleral icterus or injection Oral: Moist Mucosa, No Gingival or Mucosal Lesions/ Ulcerations Neck: Supple, No JVD, No Nodes, Trachea Midline Lungs: No rhonchi, No wheeze, Diminished, Rales, - - Left greater than right Cardiovascular: Normal S1, Normal S2, No murmurs, No rub noted, No Gallop, Tachycardic Abdomen: Bowel Sounds Present, Soft, Non Tender, Non-Distended Extremities: No clubbing, No cyanosis, Edema - Trace Skin: - - No change compared to previous Musculoskeletal: No Tenderness to Palpation of Joints or Extremities Lymphatic: No Cervical, Supraclavicular, or Inguinal Adenopathy Neurological: Cranial nerves II-XII grossly intact, Neuro grossly intact, Motor Exam 5/5 strength throughout Psych/Mental Status: Anxious Microbiology Past 72 Hours 02/12/20 13:15 Blood Culture (Wb) - Right Forearm Blood Culture - Final No growth in 5 days. 02/12/20 22:50 Sputum, Expectorated/Coughed Gram Stain - Final 02/12/20 22:50 Sputum, Expectorated/Coughed Respiratory Culture - Final Presumptive C albicans Laboratory Results 02/13/20 05:57: Tacrolimus 3.0 02/17/20 06:05: Sodium 137, Potassium 4.8, Chloride 100, Carbon Dioxide 34.0 H, Anion Gap 3 L, BUN 34 H, Creatinine 1.89 H, Estim Creat Clear Calc 38.87, Est GFR (MDRD) Af Amer 48 L, Est GFR (MDRD) Non-Af 40 L, BUN/Creatinine Ratio 18.0, Glucose 207 H, Calcium 9.9, Total Bilirubin 0.20, AST 90 H, ALT 217 H, Alkaline Phosphatase 85, Total Protein 7.5, Albumin 2.2 L, Globulin 5.3 H, Albumin/Globulin Ratio 0.4 L 02/17/20 06:05: WBC 11.4 H, RBC 3.43 L, Hgb 9.0 L, Hct 31.7 L, MCV 92.4, MCH 26.2 L, MCHC 28.4 L, RDW Std Deviation 49.7 H, RDW Coeff of Genaro 14.6, Plt Count 378, MPV 9.2 Current Medications Acetaminophen (Acetaminophen 325 Mg Tablet) 650 mg PO Q6H PRN PRN PRN Reason: Pain Score 1-10/Temp > 100.7 F Last Admin: 02/16/20 04:20 Dose: 650 mg Documented by: Al Hydroxide/Mg Hydroxide (Mag Hydrox/Al Hydrox/Simeth 30 Ml Udc) 30 ml PO Q6H PRN PRN PRN Reason: Gastric Burning Albuterol Sulfate (Albuterol 2.5 Mg/3 Ml Vial.Neb.) 2.5 mg INHALATION Q2H PRN PRN PRN Reason: SOB/Wheezing Last Admin: 02/13/20 12:20 Dose: 2.5 mg Documented by: Amiodarone HCl (Amiodarone 200 Mg Tablet) 200 mg PO BID [facility] Stop: 02/18/20 22:01 Last Admin: 02/17/20 09:45 Dose: 200 mg Documented by: Apixaban (Apixaban 5 Mg Tablet) 5 mg PO BID [facility] Last Admin: 02/17/20 09:45 Dose: 5 mg Documented by: Aspirin (Aspirin 81 Mg Tab.Chew) 81 mg PO DAILY@0800 [facility] Last Admin: 02/17/20 09:45 Dose: 81 mg Documented by: Atorvastatin Calcium (Atorvastatin Calcium 10 Mg Tablet) 10 mg PO QHS [facility] Last Admin: 02/16/20 21:47 Dose: Not Given Documented by: Calamine/Phenol (Menthol/Lanolin/Calamine/Znox 113 Gm Tube) 1 applic TOPICAL BID [facility]; Protocol Last Admin: 02/17/20 09:46 Dose: 1 applicatio Documented by: Docusate Sodium (Docusate Sodium 100 Mg Capsule) 100 mg PO BID PRN PRN PRN Reason: Constipation Famotidine (Famotidine 20 Mg Tablet) 20 mg PO DAILY [facility] Last Admin: 02/17/20 09:45 Dose: 20 mg Documented by: Fluticasone Propionate (Fluticasone 0.05% 1 [place] Nasal.Sry) 2 spray NASAL DAILY [facility] Last Admin: 02/17/20 14:52 Dose: 2 spray Documented by: Furosemide (Furosemide 40 Mg/4 Ml Vial) 40 mg IV BIDLX [facility] Last Admin: 02/17/20 09:45 Dose: 40 mg Documented by: Guaifenesin (Guaifenesin 10 Ml Udc (200mg/10ml)) 20 ml PO Q4H PRN PRN PRN Reason: COUGH Lorazepam (Lorazepam 2 Mg/Ml Syringe) 0.5 mg IV Q6H PRN PRN PRN Reason: anxiety with BIPAP Last Admin: 02/16/20 23:28 Dose: 0.5 mg Documented by: Melatonin (Melatonin 3 Mg Tablet) 3 mg PO QHS PRN PRN PRN Reason: INSOMNIA Methylprednisolone (Methylprednisolone 40 Mg/Ml Vial) 40 mg IV Q8 [facility] Last Admin: 02/17/20 14:47 Dose: 40 mg Documented by: Metoprolol Tartrate (Metoprolol Tartrate 100 Mg Tablet) 100 mg PO BID [facility] Last Admin: 02/17/20 09:45 Dose: 100 mg Documented by: Nutritional Formula (Lactose Free) (Ensure Enlive 120 Ml Liquid) 120 ml PO 4X/DAY [facility] Last Admin: 02/17/20 14:47 Dose: 120 ml Documented by: Ondansetron HCl (Ondansetron 4 Mg/2 Ml Vial) 4 mg IV Q8H PRN PRN PRN Reason: NAUSEA/VOMITING Prednisone (Prednisone 5 Mg Tablet) 7.5 mg PO DAILY@0800 [facility] Last Admin: 02/16/20 09:41 Dose: 7.5 mg Documented by: Sodium Chloride (0.9% Saline Lock 10 Ml Syringe) 10 - 40 ml IV UD PRN PRN Reason: SALINE FLUSH Last Admin: 02/17/20 14:47 Dose: 10 ml Documented by: Sodium Chloride (Sodium Chloride 0.65% 1 [place].Btl) 2 spray NASAL TID PRN PRN PRN Reason: NASAL DRYNESS Last Admin: 02/16/20 14:53 Dose: 2 spray Documented by: Tacrolimus (Tacrolimus Anhydrous 1 Mg Capsule) 1 mg PO BID [facility] Last Admin: 02/17/20 09:45 Dose: 1 mg Documented by: Trimethoprim/Sulfamethoxazole (Smz/Tmp Ds Tablet) 0.5 tablet PO DAILYCM [facility] Last Admin: 02/17/20 09:45 Dose: 0.5 tablet Documented by: Medical Necessity - Tobacco Use Smoking Status: Former smoker Tobacco Use: Cigarettes - smoked up until he was admitted with COVID about 1ppd Assessment/Plan All Active Problems (Last Reviewed 02/12/20 @ 15:[address] Fransisca Saucedo, DO) TUCKER (acute kidney injury) (Resolved) Leukocytosis (Acute) Acute respiratory failure with hypoxia (Acute) a fib with rvr (Resolved) RECOMMENDATIONS: 1. Continue attempts at diuresis as tolerated by hemodynamics and renal function. 2. Wean supplemental oxygen to maintain saturations at or above 90%. 3. Tacrolimus management per nephrology recommendations. 4. Continue systemic anticoagulation with Eliquis twice daily. 5. Monitor off antibiotics. Continue empiric steroids 6. Encourage incentive spirometer use and mobilize patient as tolerated. 7. Obtain chest x-ray. Possible CT if significant worsening IMPRESSIONS: 1. Acute on chronic hypoxemic respiratory failure The patient's chest x-ray findings are likely due to the sequelae of recent COVID-19 coupled with superimposed pulmonary edema. I would not expect significant improvement in the patient's chest x-ray, given that he was just discharged from the hospital with COVID-19 pneumonia. Radiographic improvement will lag behind the patient's clinical improvement. Unclear etiology. Patient has had significant diuresis over the course of his hospitalization, but is progressively hypoxic. Patient will have a chest x-ray to evaluate. Patient may need a CT of the chest if significant worsening. Tacrolimus level came back within normal limits. Patient does have significant anemia, so diffuse alveolar hemorrhage would be a consideration. PCP would also be a consideration. Unclear if another tacrolimus level needs to be sent. Patient may benefit from transfer to transplant center. Defer to hospitalist. 2. Chronic kidney disease status post renal transplantation Given the patient's renal transplantation history along with need for volume optimization, nephrology is following to assist with medical management. 3. Paroxysmal atrial fibrillation with RVR Continue outpatient rate/rhythm control strategy. Recent echo shows diastolic dysfunction, which would be exacerbated by accelerated heart rate. Rate is relatively controlled at this time. 4. Hypertension/hyperlipidemia/elevated troponin Complicates care, management, recovery and prognosis. Continue home medications as indicated. Inpatient E&M: [id number] [facility] H[facility] L3
--- NOTE | 2020-02-17 16:15 | RAD_ITS ---
STUDY: X-RAY CHEST REASON FOR EXAM: Male, 54 years old. PROGRESSIVE DYSPNEA TECHNIQUE: Frontal and lateral views of the chest. COMPARISON: February 11, 2020 FINDINGS: There are stable diffuse groundglass and airspace opacities of the lungs. There is no demonstrated pleural abnormality. There is moderate cardiac enlargement. Normal mediastinum and yessi. Normal visualized pulmonary arteries. Normal visualized aortic arch and descending thoracic aorta. There is a dextroscoliosis of the thoracic spine. Postoperative changes of the shoulders. There is no demonstrated abnormality of the visualized soft tissue structures of the upper abdomen. RAD/Chest PA and Lateral IMPRESSION: Stable bilateral pneumonia. Electronically Signed: Lucas Marcano MD at 17:33 EST , Service support ,
[2020-02-17] MEDS: Atorvastatin Calcium 10 MG Tablet PO (21:05)
[2020-02-18] VITALS (19 sets, daily range): BP systolic 153–156; BP diastolic 88–99; PULSE 82–95; RESP 12–52; TEMP 35.8–36.9; O2SAT 88–99
[2020-02-18 04:50] LABS: Hematocrit 30.2 % (40-54); Hemoglobin 8.7 g/dL (13.0-16.5); Mean Corp Hgb Conc 28.8 g/dL (32-36); Mean Corpuscular Hgb 26.5 pg (27.0-32.0); Mean Corpuscular Volume 92.1 fL (80-94); Mean Platelet Vol. 9.3 fl (6.2-12.0); Platelet Count 397 K/mm3 (150-450); RBC Distribution Width CV 14.9 % (11.6-14.6); RBC Distribution Width SD 50.1 fl (35.1-43.9); Red Blood Count 3.28 M/mm3 (4.6-6.2); White Blood Count 18.5 K/mm3 (4.4-11.0)
[2020-02-18 05:05] LABS: Anion Gap 6 (5-15); BUN 51 mg/dL (7-18); BUN/Creat Ratio 27.3 RATIO (10-20); Calcium,Total 9.6 mg/dL (8.5-10.1); Chloride 96 mmol/L (98-107); Creatinine, Serum 1.87 mg/dL (0.70-1.30); EST Glomerular Filtration Rate 40 mL/min (>60); Est Glom Filt Rate - Afr Amer 49 mL/min (>60); Estimated Creatinine Clearance 39.28 ml/min; Glucose 258 mg/dL (74-106); Potassium 4.8 mmol/L (3.5-5.1); Sodium Level 134 mmol/L (136-145)
[2020-02-18] MEDS: 0.9% Saline Lock 10 ML Syringe IV ×3 (05:18→22:11)
[2020-02-18] MEDS: Aspirin 81 MG TAB.CHEW PO (08:19)
[2020-02-18] MEDS: Smz/Tmp Ds Tablet 0.5 TABLET PO (08:20)
[2020-02-18] MEDS: Metoprolol Tartrate 100 MG Tablet PO ×2 (10:15→21:55)
[2020-02-18] MEDS: Furosemide 40 MG/4 ML Vial IV ×3 (10:15→21:54)
[2020-02-18] MEDS: Fluticasone 0.05% 1 SPRAY NASAL.SRY 2 SPRAY NASAL (10:15)
[2020-02-18] MEDS: APIXABAN 5 MG TABLET PO ×2 (10:16→21:54)
[2020-02-18] MEDS: Tacrolimus Anhydrous 1 MG Capsule PO ×2 (10:17→21:55)
[2020-02-18] MEDS: Famotidine 20 MG Tablet PO (10:17)
[2020-02-18] MEDS: Menthol/Lanolin/Calamine/Znox 113 GM Tube 1 APPLIC TOPICAL ×2 (10:25→21:53)
[2020-02-18] MEDS: Amiodarone 200 MG Tablet PO ×2 (10:25→21:54)
[2020-02-18] MEDS: Glucerna Shake 120 ML LIQUID PO ×3 (13:44→21:53)
--- NOTE | 2020-02-18 13:47 | PN_ITS ---
Patient Problems: Active and Suspected Problems (Last Reviewed 02/12/20 @ 15:[address] Fransisca Saucedo, DO) Leukocytosis (Acute) Acute respiratory failure with hypoxia (Acute) Subjective: Patient did okay from a hemodynamic standpoint overnight. However, oxygen demands remain high and patient has significant conversational dyspnea. Patient is a full code, but states he would be pissed if I had to have a tube to breathe. No bleeding complications have been reported. Patient currently requiring 5 L nasal cannula in addition to a nonrebreather to maintain appropriate saturations. Objective: Chest x-ray yesterday showed no significant change compared to previous - Physical Exam Vitals/I&O's: Vital Signs Temp Pulse Resp BP Pulse Ox 35.8 C L 88 24 H 155/88 H 97 02/18/20 09:35 02/18/20 10:15 02/18/20 09:35 02/18/20 10:15 02/18/20 09:35 Oxygen Flow Rate (L/min) 5 Oxygen Delivery Method Nasal Cannula Weight: 71.1 kg Body Mass Index (BMI) 24.9 Intake and Output for Last 24 Hours 02/16/20 02/17/20 02/18/20 23:59 23:59 23:59 Intake Total 1000 / 1220 820 / 1220 600 / 600 Output Total 1100 / 1450 650 / 1100 800 / 800 Balance -100 / -230 170 / 120 -200 / -200 General: Alert, Oriented x3, Cooperative, - - Moderate to severe respiratory distress. Appears older than stated age HEENT: Atraumatic, PERRLA, EOMI, Normocephalic, - - No scleral icterus or injection noted Oral: No Gingival or Mucosal Lesions/ Ulcerations, Dry Mucosa Neck: Supple, No Nodes, Trachea Midline Lungs: No rhonchi, No wheeze, Diminished, Rales - Bilateral Cardiovascular: Normal S1, Normal S2, No murmurs, Irregular Rate, No rub noted, No Gallop, Tachycardic Abdomen: Bowel Sounds Present, Soft, Non Tender, Non-Distended, Obese Extremities: No clubbing, No cyanosis, Edema Skin: - - No change from previous Musculoskeletal: No Tenderness to Palpation of Joints or Extremities Lymphatic: No Cervical, Supraclavicular, or Inguinal Adenopathy Neurological: Cranial nerves II-XII grossly intact, Neuro grossly intact, Motor Exam 5/5 strength throughout Psych/Mental Status: Anxious, Impulsive Microbiology Past 72 Hours 02/12/20 13:15 Blood Culture (Wb) - Right Forearm Blood Culture - Final No growth in 5 days. 02/12/20 22:50 Sputum, Expectorated/Coughed Gram Stain - Final 02/12/20 22:50 Sputum, Expectorated/Coughed Respiratory Culture - Final Presumptive C albicans Laboratory Results 02/13/20 05:57: Tacrolimus 3.0 02/18/20 04:30: WBC 18.5 H, RBC 3.28 L, Hgb 8.7 L, Hct 30.2 L, MCV 92.1, MCH 26.5 L, MCHC 28.8 L, RDW Std Deviation 50.1 H, RDW Coeff of Genaro 14.9 H, Plt Count 397, MPV 9.3 02/18/20 04:30: Sodium 134 L, Potassium 4.8, Chloride 96 L, Carbon Dioxide 32.0, Anion Gap 6, BUN 51 H, Creatinine 1.87 H, Estim Creat Clear Calc 39.28, Est GFR (MDRD) Af Amer 49 L, Est GFR (MDRD) Non-Af 40 L, BUN/Creatinine Ratio 27.3 H, Glucose 258 H, Calcium 9.6 Current Medications Acetaminophen (Acetaminophen 325 Mg Tablet) 650 mg PO Q6H PRN PRN PRN Reason: Pain Score 1-10/Temp > 100.7 F Last Admin: 02/16/20 04:20 Dose: 650 mg Documented by: Al Hydroxide/Mg Hydroxide (Mag Hydrox/Al Hydrox/Simeth 30 Ml Udc) 30 ml PO Q6H PRN PRN PRN Reason: Gastric Burning Albuterol Sulfate (Albuterol 2.5 Mg/3 Ml Vial.Neb.) 2.5 mg INHALATION Q2H PRN PRN PRN Reason: SOB/Wheezing Last Admin: 02/13/20 12:20 Dose: 2.5 mg Documented by: Amiodarone HCl (Amiodarone 200 Mg Tablet) 200 mg PO BID [facility] Stop: 02/18/20 22:01 Last Admin: 02/18/20 10:25 Dose: 200 mg Documented by: Apixaban (Apixaban 5 Mg Tablet) 5 mg PO BID [facility] Last Admin: 02/18/20 10:16 Dose: 5 mg Documented by: Aspirin (Aspirin 81 Mg Tab.Chew) 81 mg PO DAILY@0800 [facility] Last Admin: 02/18/20 08:19 Dose: 81 mg Documented by: Atorvastatin Calcium (Atorvastatin Calcium 10 Mg Tablet) 10 mg PO QHS [facility] Last Admin: 02/17/20 21:05 Dose: 10 mg Documented by: Calamine/Phenol (Menthol/Lanolin/Calamine/Znox 113 Gm Tube) 1 applic TOPICAL BID [facility]; Protocol Last Admin: 02/18/20 10:25 Dose: 1 applicatio Documented by: Docusate Sodium (Docusate Sodium 100 Mg Capsule) 100 mg PO BID PRN PRN PRN Reason: Constipation Famotidine (Famotidine 20 Mg Tablet) 20 mg PO DAILY [facility] Last Admin: 02/18/20 10:17 Dose: 20 mg Documented by: Fluticasone Propionate (Fluticasone 0.05% 1 [place] Nasal.Sry) 2 spray NASAL DAILY [facility] Last Admin: 02/18/20 10:15 Dose: 2 spray Documented by: Furosemide (Furosemide 40 Mg/4 Ml Vial) 40 mg IV BIDLX [facility] Last Admin: 02/18/20 10:15 Dose: 40 mg Documented by: Guaifenesin (Guaifenesin 10 Ml Udc (200mg/10ml)) 20 ml PO Q4H PRN PRN PRN Reason: COUGH Lorazepam (Lorazepam 2 Mg/Ml Syringe) 0.5 mg IV Q6H PRN PRN PRN Reason: anxiety with BIPAP Last Admin: 02/16/20 23:28 Dose: 0.5 mg Documented by: Melatonin (Melatonin 3 Mg Tablet) 3 mg PO QHS PRN PRN PRN Reason: INSOMNIA Methylprednisolone (Methylprednisolone 40 Mg/Ml Vial) 40 mg IV Q8 [facility] Last Admin: 02/18/20 13:44 Dose: 40 mg Documented by: Metoprolol Tartrate (Metoprolol Tartrate 100 Mg Tablet) 100 mg PO BID [facility] Last Admin: 02/18/20 10:15 Dose: 100 mg Documented by: Nutritional Formula (Lactose Free) (Glucerna Shake 120 Ml Liquid) 120 ml PO 4X/DAY [facility] Last Admin: 02/18/20 13:44 Dose: 120 ml Documented by: Ondansetron HCl (Ondansetron 4 Mg/2 Ml Vial) 4 mg IV Q8H PRN PRN PRN Reason: NAUSEA/VOMITING Prednisone (Prednisone 5 Mg Tablet) 7.5 mg PO DAILY@0800 [facility] Last Admin: 02/16/20 09:41 Dose: 7.5 mg Documented by: Sodium Chloride (0.9% Saline Lock 10 Ml Syringe) 10 - 40 ml IV UD PRN PRN Reason: SALINE FLUSH Last Admin: 02/18/20 05:18 Dose: 10 ml Documented by: Sodium Chloride (Sodium Chloride 0.65% 1 [place].Btl) 2 spray NASAL TID PRN PRN PRN Reason: NASAL DRYNESS Last Admin: 02/16/20 14:53 Dose: 2 spray Documented by: Tacrolimus (Tacrolimus Anhydrous 1 Mg Capsule) 1 mg PO BID [facility] Last Admin: 02/18/20 10:17 Dose: 1 mg Documented by: Trimethoprim/Sulfamethoxazole (Smz/Tmp Ds Tablet) 0.5 tablet PO DAILYCM [facility] Last Admin: 02/18/20 08:20 Dose: 0.5 tablet Documented by: Clinical Impression(s) from Imaging Studies Chest X-Ray 02/17/20 16:15 IMPRESSION: Stable bilateral pneumonia. Electronically Signed: Lucas Marcano MD at 17:33 EST , Service support , Medical Necessity - Tobacco Use Smoking Status: Former smoker Tobacco Use: Cigarettes - smoked up until he was admitted with COVID about 1ppd Assessment/Plan All Active Problems (Last Reviewed 02/12/20 @ 15:[address] Fransisca Saucedo DO) TUCKER (acute kidney injury) (Resolved) Leukocytosis (Acute) Acute respiratory failure with hypoxia (Acute) a fib with rvr (Resolved) RECOMMENDATIONS: 1. Continue attempts at diuresis as tolerated by hemodynamics and renal function. 2. Wean supplemental oxygen to maintain saturations at or above 90%. 3. Tacrolimus management per nephrology recommendations. 4. Continue systemic anticoagulation with Eliquis twice daily. 5. Monitor off antibiotics. Continue empiric steroids 6. Encourage incentive spirometer use and mobilize patient as tolerated. 7. Perform bronchoscopy if debated IMPRESSIONS: 1. Acute on chronic hypoxemic respiratory failure The patient's chest x-ray findings are likely due to the sequelae of recent COVID-19 coupled with superimposed pulmonary edema. I would not expect significant improvement in the patient's chest x-ray, given that he was just discharged from the hospital with COVID-19 pneumonia. Radiographic improvement will lag behind the patient's clinical improvement. Unclear etiology. Patient's chest x-ray is relatively unchanged compared to previous despite being on Lasix twice daily. Concern for opportunistic infection, but this would require a bronchoscopy for confirmation. When told of potential for need for intubation, patient refused intervention at this time. Patient may benefit from transition to a transplant center. Will increase Lasix as patient's weight appears to be increasing. Patient may require a Lasix drip, but would defer to nephrology. 2. Chronic kidney disease status post renal transplantation Given the patient's renal transplantation history along with need for volume optimization, nephrology is following to assist with medical management. 3. Paroxysmal atrial fibrillation with RVR Continue outpatient rate/rhythm control strategy. Recent echo shows diastolic dysfunction, which would be exacerbated by accelerated heart rate. Rate is relatively controlled at this time. 4. Hypertension/hyperlipidemia/elevated troponin Complicates care, management, recovery and prognosis. Continue home medi cations as indicated. Inpatient E&M: [id number] [facility] Hosp L3
[2020-02-18] MEDS: LORazepam 2 MG/ML Syringe 0.5 MG IV ×2 (13:51→22:10)
[2020-02-18] MEDS: guaiFENesin 10 ML UDC (200MG/10ML) 20 ML PO ×2 (13:58→21:58)
--- NOTE | 2020-02-18 14:38 | PCM.PROGNOTE ---
<[employer] EXTENDED INSURANCE CLERK - Last Filed: 02/18/20 14:50> Patient Problems: Active and Suspected Problems (Last Reviewed 02/12/20 @ 15:[address] Fransisca Saucedo DO) Leukocytosis (Acute) Acute respiratory failure with hypoxia (Acute) Subjective: Patient seen and examined. Continues to complain of shortness of breath and dry nose. Denies other symptoms or complaints. Dyspneic with conversation. - Physical Exam Vitals/I&O's: Vital Signs Temp Pulse Resp BP Pulse Ox 96.5 F L 88 24 H 155/88 H 97 02/18/20 09:35 02/18/20 10:15 02/18/20 09:35 02/18/20 10:15 02/18/20 09:35 Oxygen Flow Rate (L/min) 5 Oxygen Delivery Method Nasal Cannula Weight: 156 lb 11.979 oz Body Mass Index (BMI) 24.9 Intake and Output for Last 24 Hours 02/16/20 02/17/20 02/18/20 23:59 23:59 23:59 Intake Total 1000 / 1220 820 / 1220 600 / 600 Output Total 1100 / 1450 650 / 1100 800 / 800 Balance -100 / -230 170 / 120 -200 / -200 General: Alert, Oriented x3, Cooperative HEENT: Atraumatic, PERRLA, EOMI, Normocephalic Neck: Supple, No JVD, Negative Carotid Bruits Lungs: Clear to auscultation, Diminished Cardiovascular: Regular rate, Regular Rhythm, Murmur Abdomen: Bowel Sounds Present, Soft, Non Tender, Non-Distended Extremities: No clubbing, No cyanosis, No edema, Capillary Refill Less than 3 Seconds Skin: No rashes, No breakdown Musculoskeletal: No Tenderness to Palpation of Joints or Extremities Neurological: Cranial nerves II-XII grossly intact, Neuro grossly intact Psych/Mental Status: Flat Affect Microbiology Past 72 Hours 02/12/20 13:15 Blood Culture (Wb) - Right Forearm Blood Culture - Final No growth in 5 days. Laboratory Results 02/18/20 04:30: WBC 18.5 H, RBC 3.28 L, Hgb 8.7 L, Hct 30.2 L, MCV 92.1, MCH 26.5 L, MCHC 28.8 L, RDW Std Deviation 50.1 H, RDW Coeff of Genaro 14.9 H, Plt Count 397, MPV 9.3 02/18/20 04:30: Sodium 134 L, Potassium 4.8, Chloride 96 L, Carbon Dioxide 32.0, Anion Gap 6, BUN 51 H, Creatinine 1.87 H, Estim Creat Clear Calc 39.28, Est GFR (MDRD) Af Amer 49 L, Est GFR (MDRD) Non-Af 40 L, BUN/Creatinine Ratio 27.3 H, Glucose 258 H, Calcium 9.6 Current Medications Acetaminophen (Acetaminophen 325 Mg Tablet) 650 mg PO Q6H PRN PRN PRN Reason: Pain Score 1-10/Temp > 100.7 F Last Admin: 02/16/20 04:20 Dose: 650 mg Documented by: Al Hydroxide/Mg Hydroxide (Mag Hydrox/Al Hydrox/Simeth 30 Ml Udc) 30 ml PO Q6H PRN PRN PRN Reason: Gastric Burning Albuterol Sulfate (Albuterol 2.5 Mg/3 Ml Vial.Neb.) 2.5 mg INHALATION Q2H PRN PRN PRN Reason: SOB/Wheezing Last Admin: 02/13/20 12:20 Dose: 2.5 mg Documented by: Amiodarone HCl (Amiodarone 200 Mg Tablet) 200 mg PO BID [facility] Stop: 02/18/20 22:01 Last Admin: 02/18/20 10:25 Dose: 200 mg Documented by: Apixaban (Apixaban 5 Mg Tablet) 5 mg PO BID [facility] Last Admin: 02/18/20 10:16 Dose: 5 mg Documented by: Aspirin (Aspirin 81 Mg Tab.Chew) 81 mg PO DAILY@0800 [facility] Last Admin: 02/18/20 08:19 Dose: 81 mg Documented by: Atorvastatin Calcium (Atorvastatin Calcium 10 Mg Tablet) 10 mg PO QHS [facility] Last Admin: 02/17/20 21:05 Dose: 10 mg Documented by: Calamine/Phenol (Menthol/Lanolin/Calamine/Znox 113 Gm Tube) 1 applic TOPICAL BID [facility]; Protocol Last Admin: 02/18/20 10:25 Dose: 1 applicatio Documented by: Docusate Sodium (Docusate Sodium 100 Mg Capsule) 100 mg PO BID PRN PRN PRN Reason: Constipation Famotidine (Famotidine 20 Mg Tablet) 20 mg PO DAILY [facility] Last Admin: 02/18/20 10:17 Dose: 20 mg Documented by: Fluticasone Propionate (Fluticasone 0.05% 1 [place] Nasal.Sry) 2 spray NASAL DAILY [facility] Last Admin: 02/18/20 10:15 Dose: 2 spray Documented by: Furosemide (Furosemide 40 Mg/4 Ml Vial) 40 mg IV Q8 [facility] Guaifenesin (Guaifenesin 10 Ml Udc (200mg/10ml)) 20 ml PO Q4H PRN PRN PRN Reason: COUGH Last Admin: 02/18/20 13:58 Dose: 20 ml Documented by: Lorazepam (Lorazepam 2 Mg/Ml Syringe) 0.5 mg IV Q6H PRN PRN PRN Reason: anxiety with BIPAP Last Admin: 02/18/20 13:51 Dose: 0.5 mg Documented by: Melatonin (Melatonin 3 Mg Tablet) 3 mg PO QHS PRN PRN PRN Reason: INSOMNIA Methylprednisolone (Methylprednisolone 40 Mg/Ml Vial) 40 mg IV Q8 [facility] Last Admin: 02/18/20 13:44 Dose: 40 mg Documented by: Metoprolol Tartrate (Metoprolol Tartrate 100 Mg Tablet) 100 mg PO BID [facility] Last Admin: 02/18/20 10:15 Dose: 100 mg Documented by: Nutritional Formula (Lactose Free) (Glucerna Shake 120 Ml Liquid) 120 ml PO 4X/DAY [facility] Last Admin: 02/18/20 13:44 Dose: 120 ml Documented by: Ondansetron HCl (Ondansetron 4 Mg/2 Ml Vial) 4 mg IV Q8H PRN PRN PRN Reason: NAUSEA/VOMITING Prednisone (Prednisone 5 Mg Tablet) 7.5 mg PO DAILY@0800 [facility] Last Admin: 02/16/20 09:41 Dose: 7.5 mg Documented by: Sodium Chloride (0.9% Saline Lock 10 Ml Syringe) 10 - 40 ml IV UD PRN PRN Reason: SALINE FLUSH Last Admin: 02/18/20 05:18 Dose: 10 ml Documented by: Sodium Chloride (Sodium Chloride 0.65% 1 [place].Btl) 2 spray NASAL TID PRN PRN PRN Reason: NASAL DRYNESS Last Admin: 02/16/20 14:53 Dose: 2 spray Documented by: Tacrolimus (Tacrolimus Anhydrous 1 Mg Capsule) 1 mg PO BID [facility] Last Admin: 02/18/20 10:17 Dose: 1 mg Documented by: Trimethoprim/Sulfamethoxazole (Smz/Tmp Ds Tablet) [facility] Admin: 02/18/20 08:20 Dose: 0.5 tablet Documented by: Medical Necessity - Tobacco Use Smoking Status: Former smoker Tobacco Use: Cigarettes - smoked up until he was admitted with COVID about 1ppd Assessment/Plan All Active Problems (Last Reviewed 02/12/20 @ 15:[address] Fransisca Saucedo, DO) TUCKER (acute kidney injury) (Resolved) Leukocytosis (Acute) Acute respiratory failure with hypoxia (Acute) a fib with rvr (Resolved) 1. Acute on chronic hypoxic respiratory failure-multifactorial secondary to recent COVID-19 pneumonitis, questionable pulmonary fibrosis and acute heart failure with preserved ejection fraction. Pulmonary medicine following. Sputum culture shows normal respiratory chevy. Antibiotics discontinued. Continue supplement oxygen to maintain O2 at above 90%. Continue IV Lasix 40 mg Q8H. Strict I&O. Daily weight. Echocardiogram demonstrates an EF of 70%. As needed albuterol aerosol. Continue IV Solu-Medrol 40 mg IV every 8. Pulmonary discussed possible intubation, bronchoscopy and patient refused intervention at this time. Patient may benefit from transfer to tertiary facility however awaiting discussion with nephrology. 2. Paroxysmal atrial fibrillation with RVR-rate now stable. Continue amiodarone, metoprolol, Eliquis. 3. Abnormal troponin-suspect demand ischemia as result of #1/#2. Enzymes trended down. Echocardiogram demonstrates an EF of 70%, stage II diastolic dysfunction, mild aortic valve insufficiency. 4. Mild transaminitis-stable, recommend outpatient follow-up. 5. Chronic kidney disease stage III-history of renal transplant 2005. Continue Prograf, prednisone, Bactrim. Nephrology consulted. 6. Hypertension-stable, continue metoprolol. 7. Hyperlipidemia-continue statin. 8. GERD-continue H2 blockers. 9. Chronic normocytic anemia-stable, trend CBC. DVT prophylaxis- Eliquis Discharge planning: [facility] when medically stable. This patient was seen by ZAYRA Ortiz under the supervision of Dr. Fernandez. <Mindy Fernandez - Last Filed: 02/18/20 16:17> - Physical Exam Vitals/I&O's: Vital Signs Temp Pulse Resp BP Pulse Ox 96.9 F L 87 23 H 156/89 H 96 02/18/20 15:18 02/18/20 15:18 02/18/20 15:18 02/18/20 15:18 02/18/20 15:18 Oxygen Flow Rate (L/min) 6 Oxygen Delivery Method Venturi Mask Weight: 156 lb 11.979 oz Body Mass Index (BMI) 24.9 Intake and Output for Last 24 Hours 02/16/20 02/17/20 02/18/20 23:59 23:59 23:59 Intake Total 1000 / 1220 820 / 1220 1200 / 1200 Output Total 1100 / 1450 650 / 1100 1475 / 1475 Balance -100 / -230 170 / 120 -275 / -275 Microbiology Past 72 Hours 02/12/20 13:15 Blood Culture (Wb) - Right Forearm Blood Culture - Final No growth in 5 days. Laboratory Results 02/18/20 04:30: WBC 18.5 H, RBC 3.28 L, Hgb 8.7 L, Hct 30.2 L, MCV 92.1, MCH 26.5 L, MCHC 28.8 L, RDW Std Deviation 50.1 H, RDW Coeff of Genaro 14.9 H, Plt Count 397, MPV 9.3 02/18/20 04:30: Sodium 134 L, Potassium 4.8, Chloride 96 L, Carbon Dioxide 32.0, Anion Gap 6, BUN 51 H, Creatinine 1.87 H, Estim Creat Clear Calc 39.28, Est GFR (MDRD) Af Amer 49 L, Est GFR (MDRD) Non-Af 40 L, BUN/Creatinine Ratio 27.3 H, Glucose 258 H, Calcium 9.6 Current Medications Acetaminophen (Acetaminophen 325 Mg Tablet) 650 mg PO Q6H PRN PRN PRN Reason: Pain Score 1-10/Temp > 100.7 F Last Admin: 02/16/20 04:20 Dose: 650 mg Documented by: Al Hydroxide/Mg Hydroxide (Mag Hydrox/Al Hydrox/Simeth 30 Ml Udc) 30 ml PO Q6H PRN PRN PRN Reason: Gastric Burning Albuterol Sulfate (Albuterol 2.5 Mg/3 Ml Vial.Neb.) 2.5 mg INHALATION Q2H PRN PRN PRN Reason: SOB/Wheezing Last Admin: 02/13/20 12:20 Dose: 2.5 mg Documented by: Amiodarone HCl (Amiodarone 200 Mg Tablet) 200 mg PO BID [facility] Stop: 02/18/20 22:01 Last Admin: 02/18/20 10:25 Dose: 200 mg Documented by: Apixaban (Apixaban 5 Mg Tablet) 5 mg PO BID [facility] Last Admin: 02/18/20 10:16 Dose: 5 mg Documented by: Aspirin (Aspirin 81 Mg Tab.Chew) 81 mg PO DAILY@0800 [facility] Last Admin: 02/18/20 08:19 Dose: 81 mg Documented by: Atorvastatin Calcium (Atorvastatin Calcium 10 Mg Tablet) 10 mg PO QHS [facility] Last Admin: 02/17/20 21:05 Dose: 10 mg Documented by: Calamine/Phenol (Menthol/Lanolin/Calamine/Znox 113 Gm Tube) 1 applic TOPICAL BID [facility]; Protocol Last Admin: 02/18/20 10:25 Dose: 1 applicatio Documented by: Docusate Sodium (Docusate Sodium 100 Mg Capsule) 100 mg PO BID PRN PRN PRN Reason: Constipation Famotidine (Famotidine 20 Mg Tablet) 20 mg PO DAILY [facility] Last Admin: 02/18/20 10:17 Dose: 20 mg Documented by: Fluticasone Propionate (Fluticasone 0.05% 1 [place] Nasal.Sry) 2 spray NASAL DAILY [facility] Last Admin: 02/18/20 10:15 Dose: 2 spray Documented by: Furosemide (Furosemide 40 Mg/4 Ml Vial) 40 mg IV Q8 [facility] Last Admin: 02/18/20 15:14 Dose: 40 mg Documented by: Guaifenesin (Guaifenesin 10 Ml Udc (200mg/10ml)) 20 ml PO Q4H PRN PRN PRN Reason: COUGH Last Admin: 02/18/20 13:58 Dose: 20 ml Documented by: Lorazepam (Lorazepam 2 Mg/Ml Syringe) 0.5 mg IV Q6H PRN PRN PRN Reason: anxiety with BIPAP Last Admin: 02/18/20 13:51 Dose: 0.5 mg Documented by: Melatonin (Melatonin 3 Mg Tablet) 3 mg PO QHS PRN PRN PRN Reason: INSOMNIA Methylprednisolone (Methylprednisolone 40 Mg/Ml Vial) 40 mg IV Q8 [facility] Last Admin: 02/18/20 13:44 Dose: 40 mg Documented by: Metoprolol Tartrate (Metoprolol Tartrate 100 Mg Tablet) 100 mg PO BID [facility] Last Admin: 02/18/20 10:15 Dose: 100 mg Documented by: Nutritional Formula (Lactose Free) (Glucerna Shake 120 Ml Liquid) 120 ml PO 4X/DAY [facility] Last Admin: 02/18/20 13:44 Dose: 120 ml Documented by: Ondansetron HCl (Ondansetron 4 Mg/2 Ml Vial) 4 mg IV Q8H PRN PRN PRN Reason: NAUSEA/VOMITING Prednisone (Prednisone 5 Mg Tablet) 7.5 mg PO DAILY@0800 [facility] Last Admin: 02/16/20 09:41 Dose: 7.5 mg Documented by: Sodium Chloride (0.9% Saline Lock 10 Ml Syringe) 10 - 40 ml IV UD PRN PRN Reason: SALINE FLUSH Last Admin: 02/18/20 05:18 Dose: 10 ml Documented by: Sodium Chloride (Sodium Chloride 0.65% 1 [place].Btl) 2 spray NASAL TID PRN PRN PRN Reason: NASAL DRYNESS Last Admin: 02/16/20 14:53 Dose: 2 spray Documented by: Tacrolimus (Tacrolimus Anhydrous 1 Mg Capsule) 1 mg PO BID [facility] Last Admin: 02/18/20 10:17 Dose: 1 mg Documented by: Trimethoprim/Sulfamethoxazole (Smz/Tmp Ds Tablet) 0.5 tablet PO DAILYCM [facility] Last Admin: 02/18/20 08:20 Dose: 0.5 tablet Documented by: Assessment/Plan Patient seen by Zee IVERSON under my supervision Patient seen and examined. Patient still remains very short of breath, on 6 L of oxygen today. Review of systems otherwise negative. O/E: Vital Signs Temp Pulse Resp BP Pulse Ox 02/18/20 15:18 96.9 F L 87 23 H 156/89 H 96 02/18/20 15:03 94 02/18/20 14:00 96.7 F L 92 34 H 153/96 H 93 General: Alert, Oriented x3, Cooperative, visibly short of breth HEENT: Atraumatic, PERRLA, EOMI, Normocephalic Neck: Supple, No JVD, Negative Carotid Bruits Lungs: Diminished, Rales, Wheezes, tachypneic, on 6L of oxygen. Cardiovascular: Regular rate, Regular Rhythm, Murmur Abdomen: Bowel Sounds Present, Soft, Non Tender, Non-Distended Extremities: No clubbing, No cyanosis, No edema, Capillary Refill Less than 3 Seconds Skin: No rashes, No breakdown Musculoskeletal: No Tenderness to Palpation of Joints or Extremities Neurological: Cranial nerves II-XII grossly intact, Neuro grossly intact Psych/Mental Status: Flat Affect Continue diuresis with IV Lasix. Monitor intake and output. Titrate oxygen to maintain saturation above 90%. He is on IV steroids; oral steroids on hold. Patient does not seem to be getting better with diuresis continue diuresis. Pulmonology on board. Discussed with resaw tailer, suspicion is for opportunistic infection as patient is on immunosuppressive medication for his kidney transplant. This would however require bronchoscopy for confirmation. Patient was counseled about need for intubation with a bronchoscopy but he refused intervention. Patient's Lasix drip increased. Nephrology on board and to determine if patient will benefit from a Lasix drip. If patient does not improve any further, will try to transfer to a transplant center. Nephrology also on board. Continue amiodarone for A. fib as well as Eliquis. As per Zee Jaramillo, EXTENDED INSURANCE CLERK-C's note which I reviewed and endorsed. Inpatient E&M: 65336 Subs Hosp L3
--- NOTE | 2020-02-18 16:40 | CASEMGMT ---
According to the [facility] website, the following are in-network tertiary facilities: [facility], [place], [facility], [facility], [facility], [facility], and . Freddy AMAYA CM
--- NOTE | 2020-02-18 17:17 | PCM.PN.REN ---
Patient Problems: Active and Suspected Problems (Last Reviewed 02/12/20 @ 15:[address] Fransisca Saucedo, DO) Leukocytosis (Acute) Acute respiratory failure with hypoxia (Acute) Subjective: Following for kidney transplant and CKD. Pt is dyspneic. No CP, nausea. No LE edema. - Physical Exam Vitals/I&O's: Vital Signs Temp Pulse Resp BP Pulse Ox 96.9 F L 87 23 H 156/89 H 96 02/18/20 15:18 02/18/20 15:18 02/18/20 15:18 02/18/20 15:18 02/18/20 15:18 Oxygen Flow Rate (L/min) 6 Oxygen Delivery Method Venturi Mask Weight: 71.1 kg Body Mass Index (BMI) 24.9 Intake and Output for Last 24 Hours 02/16/20 02/17/20 02/18/20 23:59 23:59 23:59 Intake Total 1000 / 1220 820 / 1220 1200 / 1200 Output Total 1100 / 1450 650 / 1100 1475 / 1475 Balance -100 / -230 170 / 120 -275 / -275 General: Alert, Oriented x3 HEENT: Atraumatic Oral: Moist Mucosa Neck: Supple Lungs: Rhonchi, Short of Breath Cardiovascular: Normal S1, Normal S2, No murmurs Abdomen: Bowel Sounds Present, Soft, Non Tender Extremities: No edema Microbiology Past 72 Hours 02/12/20 13:15 Blood Culture (Wb) - Right Forearm Blood Culture - Final No growth in 5 days. Laboratory Results 02/18/20 04:30: WBC 18.5 H, RBC 3.28 L, Hgb 8.7 L, Hct 30.2 L, MCV 92.1, MCH 26.5 L, MCHC 28.8 L, RDW Std Deviation 50.1 H, RDW Coeff of Genaro 14.9 H, Plt Count 397, MPV 9.3 02/18/20 04:30: Sodium 134 L, Potassium 4.8, Chloride 96 L, Carbon Dioxide 32.0, Anion Gap 6, BUN 51 H, Creatinine 1.87 H, Estim Creat Clear Calc 39.28, Est GFR (MDRD) Af Amer 49 L, Est GFR (MDRD) Non-Af 40 L, BUN/Creatinine Ratio 27.3 H, Glucose 258 H, Calcium 9.6 Current Medications Acetaminophen (Acetaminophen 325 Mg Tablet) 650 mg PO Q6H PRN PRN PRN Reason: Pain Score 1-10/Temp > 100.7 F Last Admin: 02/16/20 04:20 Dose: 650 mg Documented by: Al Hydroxide/Mg Hydroxide (Mag Hydrox/Al Hydrox/Simeth 30 Ml Udc) 30 ml PO Q6H PRN PRN PRN Reason: Gastric Burning Albuterol Sulfate (Albuterol 2.5 Mg/3 Ml Vial.Neb.) 2.5 mg INHALATION Q2H PRN PRN PRN Reason: SOB/Wheezing Last Admin: 02/13/20 12:20 Dose: 2.5 mg Documented by: Amiodarone HCl (Amiodarone 200 Mg Tablet) 200 mg PO BID [facility] Stop: 02/18/20 22:01 Last Admin: 02/18/20 10:25 Dose: 200 mg Documented by: Apixaban (Apixaban 5 Mg Tablet) 5 mg PO BID [facility] Last Admin: 02/18/20 10:16 Dose: 5 mg Documented by: Aspirin (Aspirin 81 Mg Tab.Chew) 81 mg PO DAILY@0800 [facility] Last Admin: 02/18/20 08:19 Dose: 81 mg Documented by: Atorvastatin Calcium (Atorvastatin Calcium 10 Mg Tablet) 10 mg PO QHS [facility] Last Admin: 02/17/20 21:05 Dose: 10 mg Documented by: Calamine/Phenol (Menthol/Lanolin/Calamine/Znox 113 Gm Tube) 1 applic TOPICAL BID [facility]; Protocol Last Admin: 02/18/20 10:25 Dose: 1 applicatio Documented by: Docusate Sodium (Docusate Sodium 100 Mg Capsule) 100 mg PO BID PRN PRN PRN Reason: Constipation Famotidine (Famotidine 20 Mg Tablet) 20 mg PO DAILY [facility] Last Admin: 02/18/20 10:17 Dose: 20 mg Documented by: Fluticasone Propionate (Fluticasone 0.05% 1 [place] Nasal.Sry) 2 spray NASAL DAILY [facility] Last Admin: 02/18/20 10:15 Dose: 2 spray Documented by: Furosemide (Furosemide 40 Mg/4 Ml Vial) 40 mg IV Q8 [facility] Last Admin: 02/18/20 15:14 Dose: 40 mg Documented by: Guaifenesin (Guaifenesin 10 Ml Udc (200mg/10ml)) 20 ml PO Q4H PRN PRN PRN Reason: COUGH Last Admin: 02/18/20 13:58 Dose: 20 ml Documented by: Lorazepam (Lorazepam 2 Mg/Ml Syringe) 0.5 mg IV Q6H PRN PRN PRN Reason: anxiety with BIPAP Last Admin: 02/18/20 13:51 Dose: 0.5 mg Documented by: Melatonin (Melatonin 3 Mg Tablet) 3 mg PO QHS PRN PRN PRN Reason: INSOMNIA Methylprednisolone (Methylprednisolone 40 Mg/Ml Vial) 40 mg IV Q8 [facility] Last Admin: 02/18/20 13:44 Dose: 40 mg Documented by: Metoprolol Tartrate (Metoprolol Tartrate 100 Mg Tablet) 100 mg PO BID [facility] Last Admin: 02/18/20 10:15 Dose: 100 mg Documented by: Nutritional Formula (Lactose Free) (Glucerna Shake 120 Ml Liquid) 120 ml PO 4X/DAY [facility] Last Admin: 02/18/20 13:44 Dose: 120 ml Documented by: Ondansetron HCl (Ondansetron 4 Mg/2 Ml Vial) 4 mg IV Q8H PRN PRN PRN Reason: NAUSEA/VOMITING Prednisone (Prednisone 5 Mg Tablet) 7.5 mg PO DAILY@0800 [facility] Last Admin: 02/16/20 09:41 Dose: 7.5 mg Documented by: Sodium Chloride (0.9% Saline Lock 10 Ml Syringe) 10 - 40 ml IV UD PRN PRN Reason: SALINE FLUSH Last Admin: 02/18/20 05:18 Dose: 10 ml Documented by: Sodium Chloride (Sodium Chloride 0.65% 1 [place] Gerry.Btl) 2 spray NASAL TID PRN PRN PRN Reason: NASAL DRYNESS Last Admin: 02/16/20 14:53 Dose: 2 spray Documented by: Tacrolimus (Tacrolimus Anhydrous 1 Mg Capsule) 1 mg PO BID [facility] Last Admin: 02/18/20 10:17 Dose: 1 mg Documented by: Trimethoprim/Sulfamethoxazole (Smz/Tmp Ds Tablet) [facility] Last Admin: 02/18/20 08:20 Dose: 0.5 tablet Documented by: Medical Necessity - Tobacco Use Smoking Status: Former smoker Tobacco Use: Cigarettes - smoked up until he was admitted with COVID about 1ppd Assessment/Plan All Active Problems (Last Reviewed 02/12/20 @ 15:[address] Fransisca Saucedo DO) TUCKER (acute kidney injury) (Resolved) Leukocytosis (Acute) Acute respiratory failure with hypoxia (Acute) a fib with rvr (Resolved) 1. Chronic kidney disease stage III. The patient has known transplant glomerulopathy. The patient is followed by [facility] Walker in [place]. His baseline creatinine is 1.9 to 2.2 mg/dL. I did discuss his transplant course with transplant greenhouse manager, Dr. Killian, who last saw him in September 2019. The patient is status post transplant kidney biopsy earlier this year which showed mainly chronic changes. There is 60% glomerulosclerosis. Therefore, his allograft function is at baseline. I am okay with continuing the current dose of Lasix for diuresis. We are holding off on mycophenolate at this time because of COVID-19 infection. Continue the current dose of tacrolimus and steroid. 2. Acute hypoxic respiratory failure. The patient has a recent diagnosis of COVID-19 infection. The patient continues to be dyspneic despite diuresis. I agree that bronchoscopy for more definitive diagnosis is needed. However, the patient has refused noninvasive positive pressure ventilation and bronchoscopy at this point. 3. Volume status. I do not think that he is terribly volume overloaded at this point. However, we can continue the current dose of Lasix for now. We will continue to monitor his renal allograft function closely.
--- NOTE | 2020-02-18 17:43 | DS.PCM_ITS ---
<Zee Jaramillo [employer] - Last Filed: 02/18/20 17:53> Discharge Date and Diagnosis - Problem List Patient Problems: Active and Suspected Problems (Last Reviewed 02/12/20 @ 15:[address] Fransisca Saucedo DO) Leukocytosis (Acute) Acute respiratory failure with hypoxia (Acute) Date of Admission: 02/12/20 Date of Discharge: 02/18/20 - Primary Discharge Diagnosis Acute Problems: Active Problems (Last Reviewed 02/12/20 @ 15:[address] Fransisca Saucedo DO) 1. Acute on chronic hypoxic respiratory failure-multifactorial secondary to recent COVID-19 pneumonitis, questionable pulmonary fibrosis and acute heart failure with preserved ejection fraction. 2. Paroxysmal atrial fibrillation with RVR 3. Abnormal troponin-suspect demand ischemia as result of #1/#2. 4. Mild transaminitis 5. Chronic kidney disease stage III 6. Hypertension 7. Hyperlipidemia 8. GERD 9. Chronic normocytic anemia - Secondary Discharge Diagnosis Chronic Problems: Chronic Problems (Last Reviewed 02/12/20 @ 15:[address] Fransisca Saucedo DO) Chronic anemia (Chronic) Essential (primary) hypertension (Chronic) History of renal transplant (Chronic 2005) 2006 for congenital defect Right bundle branch block (Chronic) Hyperlipidemia (Chronic) Hospital Course and Treatment Imaging Results: Diagnostic Data Chest CT 02/12/20 14:13 IMPRESSION: Bilateral pneumonia, pulmonary edema, or ARDS. Electronically Signed: Bert Kuhn MD at 15:03 EST Tel , Service support , Ankle X-Ray 02/12/20 19:10 IMPRESSION: Normal x-ray examination of the ankle. Electronically Signed: Bert Kuhn MD at 7:05 EST Tel , Service support , Chest X-Ray 02/17/20 16:15 IMPRESSION: Stable bilateral pneumonia. Electronically Signed: Lucas Marcano MD at 17:33 EST , Service support , Dr. Sarkar- Nephrology Dr. Oli- Pulmonary Medicine Operations: None Procedures: 2-D Echocardiogram Summary of Care Provided: The patient is a 54 year old M admitted 02/12/2020 due to shortness of breath. 1. Acute on chronic hypoxic respiratory failure-multifactorial secondary to recent COVID-19 pneumonitis, questionable pulmonary fibrosis and acute heart failure with preserved ejection fraction. Pulmonary medicine following. Sputum culture shows normal respiratory chevy. Antibiotics discontinued. Continue supplement oxygen to maintain O2 at above 90%. Continue IV Lasix 40 mg Q8H. Strict I&O. Daily weight. Echocardiogram demonstrates an EF of 70%. As needed albuterol aerosol. Continue IV Solu-Medrol 40 mg IV every 8. Pulmonary discussed possible intubation, bronchoscopy and patient refused intervention at this time. Agreeable to transfer to tertiary facility for further treatment and evaluation given complicated history of kidney transplant and worsening respiratory status. Awaiting arrangements and acceptance from . 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 Killian. 2. Paroxysmal atrial fibrillation with RVR-rate now stable. Continue amiodarone, metoprolol, Eliquis. 3. Abnormal troponin-suspect demand ischemia as result of #1/#2. Enzymes trended down. Echocardiogram demonstrates an EF of 70%, stage II diastolic dysfunction, mild aortic valve insufficiency. 4. Mild transaminitis-stable, recommend outpatient follow-up. 5. Chronic kidney disease stage III-history of renal transplant 2005. Continue Prograf, prednisone, Bactrim. Nephrology consulted. 6. Hypertension-stable, continue metoprolol. 7. Hyperlipidemia-continue statin. 8. GERD-continue H2 blockers. 9. Chronic normocytic anemia-stable, trend CBC. General: Alert, Oriented x3, Cooperative HEENT: Atraumatic, PERRLA, EOMI, Normocephalic Neck: Supple, No JVD, Negative Carotid Bruits Lungs: Clear to auscultation, Diminished Cardiovascular: Regular rate, Regular Rhythm, Murmur Abdomen: Bowel Sounds Present, Soft, Non Tender, Non-Distended Extremities: No clubbing, No cyanosis, No edema, Capillary Refill Less than 3 Seconds Skin: No rashes, No breakdown Musculoskeletal: No Tenderness to Palpation of Joints or Extremities Neurological: Cranial nerves II-XII grossly intact, Neuro grossly intact Psych/Mental Status: Flat Affect Patient seen and examined prior to discharge. Physical assessment as noted below. Patient is stable for discharge with follow up recommendations as noted above. This patient was seen by ZAYRA Ortiz under the supervision of Dr. Fernandez. Patient Problems: Active and Suspected Problems (Last Reviewed 02/12/20 @ 15:[address] Fransisca Saucedo DO) Leukocytosis (Acute) Acute respiratory failure with hypoxia (Acute) - Physical Exam Vitals/I&O's: Vital Signs Temp Pulse Resp BP Pulse Ox 96.9 F L 87 23 H 156/89 H 96 02/18/20 15:18 02/18/20 15:18 02/18/20 15:18 02/18/20 15:18 02/18/20 15:18 Oxygen Flow Rate (L/min) 6 Oxygen Delivery Method Venturi Mask Weight: 156 lb 11.979 oz Body Mass Index (BMI) 24.9 Intake and Output for Last 24 Hours 02/16/20 02/17/20 02/18/20 23:59 23:59 23:59 Intake Total 1000 / 1220 820 / 1220 1200 / 1200 Output Total 1100 / 1450 650 / 1100 1475 / 1475 Balance -100 / -230 170 / 120 -275 / -275 Microbiology Past 72 Hours 02/12/20 13:15 Blood Culture (Wb) - Right Forearm Blood Culture - Final No growth in 5 days. Laboratory Results 02/18/20 04:30: WBC 18.5 H, RBC 3.28 L, Hgb 8.7 L, Hct 30.2 L, MCV 92.1, MCH 26.5 L, MCHC 28.8 L, RDW Std Deviation 50.1 H, RDW Coeff of Genaro 14.9 H, Plt Count 397, MPV 9.3 02/18/20 04:30: Sodium 134 L, Potassium 4.8, Chloride 96 L, Carbon Dioxide 32.0, Anion Gap 6, BUN 51 H, Creatinine 1.87 H, Estim Creat Clear Calc 39.28, Est GFR (MDRD) Af Amer 49 L, Est GFR (MDRD) Non-Af 40 L, BUN/Creatinine Ratio 27.3 H, Glucose 258 H, Calcium 9.6 Current Medications Acetaminophen (Acetaminophen 325 Mg Tablet) 650 mg PO Q6H PRN PRN PRN Reason: Pain Score 1-10/Temp > 100.7 F Last Admin: 02/16/20 04:20 Dose: 650 mg Documented by: Al Hydroxide/Mg Hydroxide (Mag Hydrox/Al Hydrox/Simeth 30 Ml Udc) 30 ml PO Q6H PRN PRN PRN Reason: Gastric Burning Albuterol Sulfate (Albuterol 2.5 Mg/3 Ml Vial.Neb.) 2.5 mg INHALATION Q2H PRN PRN PRN Reason: SOB/Wheezing Last Admin: 02/13/20 12:20 Dose: 2.5 mg Documented by: Amiodarone HCl (Amiodarone 200 Mg Tablet) 200 mg PO BID [facility] Stop: 02/18/20 22:01 Last Admin: 02/18/20 10:25 Dose: 200 mg Documented by: Apixaban (Apixaban 5 Mg Tablet) 5 mg PO BID [facility] Last Admin: 02/18/20 10:16 Dose: 5 mg Documented by: Aspirin (Aspirin 81 Mg Tab.Chew) 81 mg PO DAILY@0800 [facility] Last Admin: 02/18/20 08:19 Dose: 81 mg Documented by: Atorvastatin Calcium (Atorvastatin Calcium 10 Mg Tablet) 10 mg PO QHS [facility] Last Admin: 02/17/20 21:05 Dose: 10 mg Documented by: Calamine/Phenol (Menthol/Lanolin/Calamine/Znox 113 Gm Tube) 1 applic TOPICAL BID [facility]; Protocol Last Admin: 02/18/20 10:25 Dose: 1 applicatio Documented by: Docusate Sodium (Docusate Sodium 100 Mg Capsule) 100 mg PO BID PRN PRN PRN Reason: Constipation Famotidine (Famotidine 20 Mg Tablet) 20 mg PO DAILY [facility] Last Admin: 02/18/20 10:17 Dose: 20 mg Documented by: Fluticasone Propionate (Fluticasone 0.05% 1 [place] Nasal.Sry) 2 spray NASAL DAILY [facility] Last Admin: 02/18/20 10:15 Dose: 2 spray Documented by: Furosemide (Furosemide 40 Mg/4 Ml Vial) 40 mg IV Q8 [facility] Last Admin: 02/18/20 15:14 Dose: 40 mg Documented by: Guaifenesin (Guaifenesin 10 Ml Udc (200mg/10ml)) 20 ml PO Q4H PRN PRN PRN Reason: COUGH Last Admin: 02/18/20 13:58 Dose: 20 ml Documented by: Lorazepam (Lorazepam 2 Mg/Ml Syringe) 0.5 mg IV Q6H PRN PRN PRN Reason: anxiety with BIPAP Last Admin: 02/18/20 13:51 Dose: 0.5 mg Documented by: Melatonin (Melatonin 3 Mg Tablet) 3 mg PO QHS PRN PRN PRN Reason: INSOMNIA Methylprednisolone (Methylprednisolone 40 Mg/Ml Vial) 40 mg IV Q8 [facility] Last Admin: 02/18/20 13:44 Dose: 40 mg Documented by: Metoprolol Tartrate (Metoprolol Tartrate 100 Mg Tablet) 100 mg PO BID [facility] Last Admin: 02/18/20 10:15 Dose: 100 mg Documented by: Nutritional Formula (Lactose Free) (Glucerna Shake 120 Ml Liquid) 120 ml PO 4X/DAY [facility] Last Admin: 02/18/20 13:44 Dose: 120 ml Documented by: Ondansetron HCl (Ondansetron 4 Mg/2 Ml Vial) 4 mg IV Q8H PRN PRN PRN Reason: NAUSEA/VOMITING Prednisone (Prednisone 5 Mg Tablet) 7.5 mg PO DAILY@0800 [facility] Last Admin: 02/16/20 09:41 Dose: 7.5 mg Documented by: Sodium Chloride (0.9% Saline Lock 10 Ml Syringe) 10 - 40 ml IV UD PRN PRN Reason: SALINE FLUSH Last Admin: 02/18/20 05:18 Dose: 10 ml Documented by: Sodium Chloride (Sodium Chloride 0.65% 1 [place].Btl) 2 spray NASAL TID PRN PRN PRN Reason: NASAL DRYNESS Last Admin: 02/16/20 14:53 Dose: 2 spray Documented by: Tacrolimus (Tacrolimus Anhydrous 1 Mg Capsule) 1 mg PO BID [facility] Last Admin: 02/18/20 10:17 Dose: 1 mg Documented by: Trimethoprim/Sulfamethoxazole (Smz/Tmp Ds Tablet) [facility] Last Admin: 02/18/20 08:20 Dose: 0.5 tablet Documented by: Home Medications: Medications to take at Discharge Famotidine [Pepcid] 20 mg PO DAILY 11/19/12 Atorvastatin Calcium [Lipitor] 10 mg PO QHS 11/13/18 Cholecalciferol (Vitamin D3) [Vitamin D3] 2,000 unit PO DAILY 11/13/18 Sulfamethoxazole/Trimethoprim [Sulfamethoxazole-Tmp Ss Tablet] 1 tab PO DAILY 01/18/20 Apixaban [Eliquis] 2.5 mg PO BID tab 02/10/20 Metoprolol Tartrate [Lopressor (beta aretha)] 100 mg PO BID tab 02/10/20 Amiodarone HCl [Cordarone] 200 mg PO BID 02/12/20 Aspirin [Aspirin, Baby] 81 mg PO DAILY@0800 02/12/20 Furosemide [Lasix] 40 mg PO DAILY 02/12/20 Prednisone 7.5 mg PO DAILY@0800 02/12/20 Tacrolimus Anhydrous [Prograf] 1 mg PO BID 02/12/20 Primary Care Physician: Girish Mccormick MD [Primary Care Provider] - Disposition: Acute care Hospital Minutes spent on discharge:: 35 Patient Condition:: Fair Medical Necessity - Tobacco Use Smoking Status: Former smoker Tobacco Use: Cigarettes - smoked up until he was admitted with COVID about 1ppd Meaningful Use Info Meaningful Use Diagnoses (Choose all that apply): CHF - CHF CORNELL/ARB ordered at discharge?: No Reason CORNELL/ARB not ordered?: Worsening renal disease Documented LVEF (%): 70 <Mindy Fernandez - Last Filed: 02/21/20 15:58> Discharge Date and Diagnosis Date of Discharge: 02/20/20 - Primary Discharge Diagnosis Acute Problems: Active Problems (Last Reviewed 02/12/20 @ 15:[address] Fransisca Saucedo DO) Leukocytosis (Acute) Acute respiratory failure with hypoxia (Acute) - Secondary Discharge Diagnosis Chronic Problems: Chronic Problems (Last Reviewed 02/12/20 @ 15:[address] Fransisca Saucedo DO) Chronic anemia (Chronic) Essential (primary) hypertension (Chronic) History of renal transplant (Chronic 2005) 2006 for congenital defect Right bundle branch block (Chronic) Hyperlipidemia (Chronic) Hospital Course and Treatment Summary of Care Provided: Patient seen by Zee IVERSON under my supervision The patient is a 54 year old M with a past medical history as outlined was admitted through the ED on 02/12/2020 with a complaint of worsening shortness of breath. Patient had recently been discharged from the hospital after an extensive stay which included ICU admission and invasive mechanical ventilatory support on account of respiratory failure from COVID-19 pneumonia. He was discharged on 4 L of oxygen. Patient did have a history of ESRD s/p renal transplantation and also paroxysmal A. fib with RVR. On admission this time, he was noted to have a white cell count of 15,000 and creatinine was 1.54. Troponin was 0.08 and BNP was thousand 73. MRSA screen was negative and chest x-ray and CT scan both showed bilateral airspace disease but no PE. He was placed on appropriate antimicrobials and started on diuresis with IV Lasix. He was managed for acute on chronic hypoxic respiratory failure due to acute heart failure. He was diuresed with IV Lasix. Patient shortness of breath however persisted and pulmonology was consulted. Troponins were slightly abnormal and this was thought to be due to demand ischemia from heart failure. Troponins did trend down. 2D echo showed EF of 70% with stage II diastolic dysfunction. Also put on IV Solu-Medrol. Patient Requiring increasing amounts of oxygen and shortness of breath was not improving. It was recommended that patient have a bronchoscopy but he refused this. Nephrology was also consulted. Due to patient's lack of improvement, patient was transferred to [facility] on 02/19/2019 for care in a treatment and evaluation given his complicated status, and history of ESRD and kidney transplant, so would benefit from evaluation by transplant team. Patient seen and examined prior to discharge. He still remains short of breath and on oxygen. Review of systems was otherwise negative. O/E: Vital Signs Temp Pulse Resp BP Pulse Ox 98.0 F 90 19 H 152/92 H 95 02/20/20 03:00 02/20/20 03:00 02/20/20 03:00 02/20/20 03:00 02/20/20 03:00 [] General: Alert, Oriented x3, Cooperative HEENT: Atraumatic, PERRLA, EOMI, Normocephalic Neck: Supple, No JVD, Negative Carotid Bruits Lungs: Diminished breath sounds bibasilarly with some wheezing in all lung tay. 12 L oxygen via nasal cannula and nonrebreather mask. Tachypneic Cardiovascular: Regular rate, Regular Rhythm, Murmur Abdomen: Bowel Sounds Present, Soft, Non Tender, Non-Distended Extremities: No clubbing, No cyanosis, No edema, Capillary Refill Less than 3 Seconds Skin: No rashes, No breakdown Musculoskeletal: No Tenderness to Palpation of Joints or Extremities Neurological: Cranial nerves II-XII grossly intact, Neuro grossly intact Psych/Mental Status: Flat Affect Plan is for transfer to . - Physical Exam Vitals/I&O's: Vital Signs Temp Pulse Resp BP Pulse Ox 98.0 F 90 19 H 152/92 H 95 02/20/20 03:00 02/20/20 03:00 02/20/20 03:00 02/20/20 03:00 02/20/20 03:00 Oxygen Flow Rate (L/min) 12 Oxygen Delivery Method Venturi Mask Weight: 156 lb 8.451 oz Body Mass Index (BMI) 24.9 Intake and Output for Last 24 Hours 02/18/20 02/19/20 02/20/20 23:59 23:59 23:59 Intake Total 1700 / 1999 570 / 570 Output Total 2425 / 2875 2450 / 2450 Balance -725 / -875 -1880 / -1880 Discharge Diet: Low fat/ Low Cholesterol Inpatient E&M: 74717 Disch Hosp
[2020-02-18] MEDS: Atorvastatin Calcium 10 MG Tablet PO (21:54)
--- NOTE | 2020-02-18 22:58 | CPS ---
pt very sob on 50%vm and 10 l hfnc-was asked if would try bipap -pt said he would-was placed on bipap at 16/8 55%-rubi fair-pt very anxious
[2020-02-19] VITALS (19 sets, daily range): BP systolic 140–165; BP diastolic 61–99; PULSE 81–102; RESP 12–42; TEMP 36.3–36.9; O2SAT 90–98
--- NOTE | 2020-02-19 00:15 | NURSING ---
[facility] transfer center called around 1914 last evening 02/17 to confirm waiting on a bed for pt transfer. This RN gave transfer center an update on pt and last set of vitals. Transfer center said most likely not a bed available until tomorrow 02/18, but they will give updates as they can. Around 2214, this RN called transfer center per Dr. Long request to see if they had any beds available yet d/t pt requiring BIPAP currently. No beds currently, probably won't be until tomorrow, will continue to update. This RN talked to Dr. Long, made aware of no beds. requested that transfer center be called to see if any other campus would have an open bed. Transfer center staff looked and d/t pt requiring nephrology at the campus he would be transferred to, there are currently no other options but to wait for a bed to open up at main campus. Dr. Long made aware of no beds at this time. Marin Bonilla RN
--- NOTE | 2020-02-19 03:14 | CPS ---
decreased fio2 to 45%-nurse aware
[2020-02-19] MEDS: LORazepam 2 MG/ML Syringe 0.5 MG IV ×3 (04:08→21:07)
[2020-02-19] MEDS: 0.9% Saline Lock 10 ML Syringe IV ×3 (04:08→21:07)
[2020-02-19 05:47] LABS: Hematocrit 31.3 % (40-54); Mean Corp Hgb Conc 28.8 g/dL (32-36); Mean Corpuscular Hgb 26.5 pg (27.0-32.0); Mean Corpuscular Volume 92.1 fL (80-94); Mean Platelet Vol. 9.2 fl (6.2-12.0); Platelet Count 413 K/mm3 (150-450); RBC Distribution Width SD 49.7 fl (35.1-43.9); White Blood Count 20.9 K/mm3 (4.4-11.0)
[2020-02-19] MEDS: Furosemide 40 MG/4 ML Vial IV ×3 (05:55→21:06)
[2020-02-19 06:07] LABS: Anion Gap 7 (5-15); BUN 67 mg/dL (7-18); Calcium,Total 9.4 mg/dL (8.5-10.1); Chloride 97 mmol/L (98-107); Creatinine, Serum 1.97 mg/dL (0.70-1.30); EST Glomerular Filtration Rate 38 mL/min (>60); Est Glom Filt Rate - Afr Amer 46 mL/min (>60); Estimated Creatinine Clearance 37.29 ml/min; Glucose 196 mg/dL (74-106); Magnesium 2.1 mg/dL (1.6-2.6); Potassium 4.6 mmol/L (3.5-5.1); Sodium Level 135 mmol/L (136-145)
[2020-02-19] MEDS: Smz/Tmp Ds Tablet 0.5 TABLET PO (08:40)
[2020-02-19] MEDS: Tacrolimus Anhydrous 1 MG Capsule PO ×2 (08:40→21:06)
[2020-02-19] MEDS: Aspirin 81 MG TAB.CHEW PO (08:40)
[2020-02-19] MEDS: predniSONE 5 MG Tablet 7.5 MG PO (08:41)
[2020-02-19] MEDS: Famotidine 20 MG Tablet PO (08:41)
[2020-02-19] MEDS: APIXABAN 5 MG TABLET PO ×2 (08:41→21:06)
[2020-02-19] MEDS: Metoprolol Tartrate 100 MG Tablet PO ×2 (08:41→21:06)
[2020-02-19] MEDS: Fluticasone 0.05% 1 SPRAY NASAL.SRY 2 SPRAY NASAL (08:42)
[2020-02-19] MEDS: Menthol/Lanolin/Calamine/Znox 113 GM Tube 1 APPLIC TOPICAL ×2 (08:44→21:21)
--- NOTE | 2020-02-19 10:33 | PN_ITS ---
Patient Problems: Active and Suspected Problems (Last Reviewed 02/12/20 @ 15:[address] Fransisca Saucedo, DO) Leukocytosis (Acute) Acute respiratory failure with hypoxia (Acute) Subjective: Patient overall feels subjectively unchanged compared to previous despite diuresis of over a liter. Patient is still requiring BiPAP with all sleep and a Ventimask during the day. Patient once again stated that he is not willing to have a bronchoscopy if it means I will be on a ventilator. - Physical Exam Vitals/I&O's: Vital Signs Temp Pulse Resp BP Pulse Ox 36.5 C L 84 24 H 162/96 H 98 02/19/20 08:36 02/19/20 08:41 02/19/20 08:36 02/19/20 08:36 02/19/20 08:36 Oxygen Flow Rate (L/min) 15 Oxygen Delivery Method Venturi Mask Weight: 71 kg Body Mass Index (BMI) 24.9 Intake and Output for Last 24 Hours 02/17/20 02/18/20 02/19/20 23:59 23:59 23:59 Intake Total 820 / 1220 1700 / 2000 330 / 330 Output Total 650 / 1100 2425 / 2875 850 / 850 Balance 170 / 120 -725 / -875 -520 / -520 General: Alert, Cooperative, - - To severe conversational dyspnea HEENT: Atraumatic, PERRLA, EOMI, Normocephalic, - - Scleral injection without icterus Oral: Moist Mucosa, No Gingival or Mucosal Lesions/ Ulcerations Neck: Supple, No Nodes, Trachea Midline, JVD, Right Lungs: No rhonchi, No wheeze, Diminished, Rales Cardiovascular: Normal S1, Normal S2, No murmurs, No rub noted, No Gallop, Tachycardic Abdomen: Bowel Sounds Present, Soft, Non Tender, Non-Distended Extremities: No clubbing, No cyanosis, Edema Skin: - - No change from previous Musculoskeletal: No Tenderness to Palpation of Joints or Extremities Lymphatic: No Cervical, Supraclavicular, or Inguinal Adenopathy Neurological: Cranial nerves II-XII grossly intact, Neuro grossly intact, Motor Exam 5/5 strength throughout Psych/Mental Status: Anxious Microbiology Past 72 Hours 02/12/20 13:15 Blood Culture (Wb) - Right Forearm Blood Culture - Final No growth in 5 days. Laboratory Results 02/19/20 05:18: WBC 20.9 H, RBC 3.40 L, Hgb 9.0 L, Hct 31.3 L, MCV 92.1, MCH 26.5 L, MCHC 28.8 L, RDW Std Deviation 49.7 H, RDW Coeff of Genaro 15.0 H, Plt Count 413, MPV 9.2 02/19/20 05:18: Sodium 135 L, Potassium 4.6, Chloride 97 L, Carbon Dioxide 31.0, Anion Gap 7, BUN 67 H, Creatinine 1.97 H, Estim Creat Clear Calc 37.29, Est GFR (MDRD) Af Amer 46 L, Est GFR (MDRD) Non-Af 38 L, BUN/Creatinine Ratio 34.0 H, Glucose 196 H, Calcium 9.4, Magnesium 2.1 Current Medications Acetaminophen (Acetaminophen 325 Mg Tablet) 650 mg PO Q6H PRN PRN PRN Reason: Pain Score 1-10/Temp > 100.7 F Last Admin: 02/16/20 04:20 Dose: 650 mg Documented by: Al Hydroxide/Mg Hydroxide (Mag Hydrox/Al Hydrox/Simeth 30 Ml Udc) 30 ml PO Q6H PRN PRN PRN Reason: Gastric Burning Albuterol Sulfate (Albuterol 2.5 Mg/3 Ml Vial.Neb.) 2.5 mg INHALATION Q2H PRN PRN PRN Reason: SOB/Wheezing Last Admin: 02/13/20 12:20 Dose: 2.5 mg Documented by: Apixaban (Apixaban 5 Mg Tablet) 5 mg PO BID [facility] Last Admin: 02/19/20 08:41 Dose: 5 mg Documented by: Aspirin (Aspirin 81 Mg Tab.Chew) 81 mg PO DAILY@0800 [facility] Last Admin: 02/19/20 08:40 Dose: 81 mg Documented by: Atorvastatin Calcium (Atorvastatin Calcium 10 Mg Tablet) 10 mg PO QHS [facility] Last Admin: 02/18/20 21:54 Dose: 10 mg Documented by: Calamine/Phenol (Menthol/Lanolin/Calamine/Znox 113 Gm Tube) 1 applic TOPICAL BID [facility]; Protocol Last Admin: 02/19/20 08:44 Dose: 1 applicatio Documented by: Docusate Sodium (Docusate Sodium 100 Mg Capsule) 100 mg PO BID PRN PRN PRN Reason: Constipation Famotidine (Famotidine 20 Mg Tablet) 20 mg PO DAILY [facility] Last Admin: 02/19/20 08:41 Dose: 20 mg Documented by: Fluticasone Propionate (Fluticasone 0.05% 1 [place] Nasal.Sry) 2 spray NASAL DAILY [facility] Last Admin: 02/19/20 08:42 Dose: 2 spray Documented by: Furosemide (Furosemide 40 Mg/4 Ml Vial) 40 mg IV Q8 [facility] Last Admin: 02/19/20 05:55 Dose: 40 mg Documented by: Guaifenesin (Guaifenesin 10 Ml Udc (200mg/10ml)) 20 ml PO Q4H PRN PRN PRN Reason: COUGH Last Admin: 02/18/20 21:58 Dose: 20 ml Documented by: Lorazepam (Lorazepam 2 Mg/Ml Syringe) 0.5 mg IV Q6H PRN PRN PRN Reason: anxiety with BIPAP Last Admin: 02/19/20 04:08 Dose: 0.5 mg Documented by: Melatonin (Melatonin 3 Mg Tablet) 3 mg PO QHS PRN PRN PRN Reason: INSOMNIA Methylprednisolone (Methylprednisolone 40 Mg/Ml Vial) 40 mg IV Q8 [facility] Last Admin: 02/19/20 05:55 Dose: 40 mg Documented by: Metoprolol Tartrate (Metoprolol Tartrate 100 Mg Tablet) 100 mg PO BID [facility] Last Admin: 02/19/20 08:41 Dose: 100 mg Documented by: Nutritional Formula (Lactose Free) (Glucerna Shake 120 Ml Liquid) 120 ml PO 4X/DAY [facility] Last Admin: 02/19/20 08:50 Dose: Not Given Documented by: Ondansetron HCl (Ondansetron 4 Mg/2 Ml Vial) 4 mg IV Q8H PRN PRN PRN Reason: NAUSEA/VOMITING Prednisone (Prednisone 5 Mg Tablet) 7.5 mg PO DAILY@0800 [facility] Last Admin: 02/19/20 08:41 Dose: 7.5 mg Documented by: Sodium Chloride (0.9% Saline Lock 10 Ml Syringe) 10 - 40 ml IV UD PRN PRN Reason: SALINE FLUSH Last Admin: 02/19/20 05:55 Dose: 10 ml Documented by: Sodium Chloride (Sodium Chloride 0.65% 1 [place].Btl) 2 spray NASAL TID PRN PRN PRN Reason: NASAL DRYNESS Last Admin: 02/16/20 14:53 Dose: 2 spray Documented by: Tacrolimus (Tacrolimus Anhydrous 1 Mg Capsule) 1 mg PO BID [facility] Last Admin: 02/19/20 08:40 Dose: 1 mg Documented by: Trimethoprim/Sulfamethoxazole (Smz/Tmp Ds Tablet) [facility] Last Admin: 02/19/20 08:40 Dose: 0.5 tablet Documented by: Medical Necessity - Tobacco Use Smoking Status: Former smoker Tobacco Use: Cigarettes - smoked up until he was admitted with COVID about 1ppd Assessment/Plan All Active Problems (Last Reviewed 02/12/20 @ 15:[address] Fransisca Saucedo, DO) TUCKER (acute kidney injury) (Resolved) Leukocytosis (Acute) Acute respiratory failure with hypoxia (Acute) a fib with rvr (Resolved) RECOMMENDATIONS: 1. Continue attempts at diuresis as tolerated by hemodynamics and renal function. 2. Wean supplemental oxygen to maintain saturations at or above 90%. 3. Tacrolimus management per nephrology recommendations. 4. Continue systemic anticoagulation with Eliquis twice daily. 5. Monitor off antibiotics. Continue empiric steroids 6. Encourage incentive spirometer use and mobilize patient as tolerated. 7. Perform bronchoscopy if intubated IMPRESSIONS: 1. Acute on chronic hypoxemic respiratory failure Patient continues to have significant respiratory issues despite diuresis. Tacrolimus level was within normal limits when checked previously. Renal function appears to be relatively stable. Unclear if patient has an opportunistic infection, but patient is refusing bronchoscopy at this time as he will be at high risk for need of intubation post procedure. Patient did receive extra Lasix yesterday with a slight increase in creatinine. Patient still with significant respiratory and conversational dyspnea. Agree with possible transfer to a tertiary center for transplant team evaluation. 2. Chronic kidney disease status post renal transplantation Given the patient's renal transplantation history along with need for volume optimization, nephrology is following to assist with medical management. 3. Paroxysmal atrial fibrillation with RVR Continue outpatient rate/rhythm control strategy. Recent echo shows diastolic dysfunction, which would be exacerbated by accelerated heart rate. Rate is relatively controlled at this time. 4. Hypertension/hyperlipidemia/elevated troponin Complicates care, management, recovery and prognosis. Continue home medications as indicated. Inpatient E&M: [id number] [facility] Hosp L3
--- NOTE | 2020-02-19 10:50 | CASEMGMT ---
CHRISTIANO called Danielle at [facility] and let her know that patient is being transferred to [facility] as soon as a bed opens up. She thanked for the update. Jessica LE MSW
[2020-02-19] MEDS: Glucerna Shake 120 ML LIQUID PO ×2 (13:08→21:21)
--- NOTE | 2020-02-19 15:09 | PCM.PN.REN ---
Patient Problems: Active and Suspected Problems (Last Reviewed 02/12/20 @ 15:[address] Fransisca Saucedo, DO) Leukocytosis (Acute) Acute respiratory failure with hypoxia (Acute) Subjective: no new events - Physical Exam Vitals/I&O's: Vital Signs Temp Pulse Resp BP Pulse Ox 98.0 F 96 24 H 156/96 H 95 02/19/20 14:30 02/19/20 14:30 02/19/20 14:30 02/19/20 14:30 02/19/20 14:30 Oxygen Flow Rate (L/min) 12 Oxygen Delivery Method Nasal Cannula Weight: 71 kg Body Mass Index (BMI) 24.9 Intake and Output for Last 24 Hours 02/17/20 02/18/20 02/19/20 23:59 23:59 23:59 Intake Total 820 / 1220 1700 / 2000 330 / 330 Output Total 650 / 1100 2425 / 2875 1250 / 1250 Balance 170 / 120 -725 / -875 -920 / -920 General: Alert, Oriented x3, Cooperative HEENT: Atraumatic, PERRLA, EOMI, Normocephalic Neck: Supple, No JVD, Negative Carotid Bruits Lungs: Clear to auscultation, Normal air movement Cardiovascular: Regular rate, No murmurs Abdomen: Bowel Sounds Present, Soft, Non Tender Extremities: No edema, Capillary Refill Less than 3 Seconds Skin: No rashes, No breakdown Musculoskeletal: No Tenderness to Palpation of Joints or Extremities Neurological: Cranial nerves II-XII grossly intact Psych/Mental Status: Normal Affect, Appropriate Microbiology Past 72 Hours 02/12/20 13:15 Blood Culture (Wb) - Right Forearm Blood Culture - Final No growth in 5 days. Laboratory Results 02/19/20 05:18: WBC 20.9 H, RBC 3.40 L, Hgb 9.0 L, Hct 31.3 L, MCV 92.1, MCH 26.5 L, MCHC 28.8 L, RDW Std Deviation 49.7 H, RDW Coeff of Genaro 15.0 H, Plt Count 413, MPV 9.2 02/19/20 05:18: Sodium 135 L, Potassium 4.6, Chloride 97 L, Carbon Dioxide 31.0, Anion Gap 7, BUN 67 H, Creatinine 1.97 H, Estim Creat Clear Calc 37.29, Est GFR (MDRD) Af Amer 46 L, Est GFR (MDRD) Non-Af 38 L, BUN/Creatinine Ratio 34.0 H, Glucose 196 H, Calcium 9.4, Magnesium 2.1 Current Medications Acetaminophen (Acetaminophen 325 Mg Tablet) 650 mg PO Q6H PRN PRN PRN Reason: Pain Score 1-10/Temp > 100.7 F Last Admin: 02/16/20 04:20 Dose: 650 mg Documented by: Al Hydroxide/Mg Hydroxide (Mag Hydrox/Al Hydrox/Simeth 30 Ml Udc) 30 ml PO Q6H PRN PRN PRN Reason: Gastric Burning Albuterol Sulfate (Albuterol 2.5 Mg/3 Ml Vial.Neb.) 2.5 mg INHALATION Q2H PRN PRN PRN Reason: SOB/Wheezing Last Admin: 02/13/20 12:20 Dose: 2.5 mg Documented by: Apixaban (Apixaban 5 Mg Tablet) 5 mg PO BID [facility] Last Admin: 02/19/20 08:41 Dose: 5 mg Documented by: Aspirin (Aspirin 81 Mg Tab.Chew) 81 mg PO DAILY@0800 [facility] Last Admin: 02/19/20 08:40 Dose: 81 mg Documented by: Atorvastatin Calcium (Atorvastatin Calcium 10 Mg Tablet) 10 mg PO QHS [facility] Last Admin: 02/18/20 21:54 Dose: 10 mg Documented by: Calamine/Phenol (Menthol/Lanolin/Calamine/Znox 113 Gm Tube) 1 applic TOPICAL BID [facility]; Protocol Last Admin: 02/19/20 08:44 Dose: 1 applicatio Documented by: Docusate Sodium (Docusate Sodium 100 Mg Capsule) 100 mg PO BID PRN PRN PRN Reason: Constipation Famotidine (Famotidine 20 Mg Tablet) 20 mg PO DAILY [facility] Last Admin: 02/19/20 08:41 Dose: 20 mg Documented by: Fluticasone Propionate (Fluticasone 0.05% 1 [place] Nasal.Sry) 2 spray NASAL DAILY [facility] Last Admin: 02/19/20 08:42 Dose: 2 spray Documented by: Furosemide (Furosemide 40 Mg/4 Ml Vial) 40 mg IV Q8 [facility] Last Admin: 02/19/20 13:08 Dose: 40 mg Documented by: Guaifenesin (Guaifenesin 10 Ml Udc (200mg/10ml)) 20 ml PO Q4H PRN PRN PRN Reason: COUGH Last Admin: 02/18/20 21:58 Dose: 20 ml Documented by: Lorazepam (Lorazepam 2 Mg/Ml Syringe) 0.5 mg IV Q6H PRN PRN PRN Reason: anxiety with BIPAP Last Admin: 02/19/20 11:44 Dose: 0.5 mg Documented by: Melatonin (Melatonin 3 Mg Tablet) 3 mg PO QHS PRN PRN PRN Reason: INSOMNIA Methylprednisolone (Methylprednisolone 40 Mg/Ml Vial) 40 mg IV Q8 [facility] Last Admin: 02/19/20 13:08 Dose: 40 mg Documented by: Metoprolol Tartrate (Metoprolol Tartrate 100 Mg Tablet) 100 mg PO BID [facility] Last Admin: 02/19/20 08:41 Dose: 100 mg Documented by: Nutritional Formula (Lactose Free) (Glucerna Shake 120 Ml Liquid) 120 ml PO 4X/DAY [facility] Last Admin: 02/19/20 13:08 Dose: 120 ml Documented by: Ondansetron HCl (Ondansetron 4 Mg/2 Ml Vial) 4 mg IV Q8H PRN PRN PRN Reason: NAUSEA/VOMITING Prednisone (Prednisone 5 Mg Tablet) 7.5 mg PO DAILY@0800 [facility] Last Admin: 02/19/20 08:41 Dose: 7.5 mg Documented by: Sodium Chloride (0.9% Saline Lock 10 Ml Syringe) 10 - 40 ml IV UD PRN PRN Reason: SALINE FLUSH Last Admin: 02/19/20 05:55 Dose: 10 ml Documented by: Sodium Chloride (Sodium Chloride 0.65% 1 [place].Btl) 2 spray NASAL TID PRN PRN PRN Reason: NASAL DRYNESS Last Admin: 02/16/20 14:53 Dose: 2 spray Documented by: Tacrolimus (Tacrolimus Anhydrous 1 Mg Capsule) 1 mg PO BID [facility] Last Admin: 02/19/20 08:40 Dose: 1 mg Documented by: Trimethoprim/Sulfamethoxazole (Smz/Tmp Ds Tablet) [facility] Last Admin: 02/19/20 08:40 Dose: 0.5 tablet Documented by: Medical Necessity - Tobacco Use Smoking Status: Former smoker Tobacco Use: Cigarettes - smoked up until he was admitted with COVID about 1ppd Assessment/Plan All Active Problems (Last Reviewed 02/12/20 @ 15:[address] Fransisca Saucedo, DO) TUCKER (acute kidney injury) (Resolved) Leukocytosis (Acute) Acute respiratory failure with hypoxia (Acute) a fib with rvr (Resolved) 1. Chronic kidney disease stage III. The patient has known transplant glomerulopathy. The patient is followed by [facility] [place]. His baseline creatinine is 1.9 to 2.2 mg/dL. The patient is status post transplant kidney biopsy earlier this year which showed mainly chronic changes. There is 60% glomerulosclerosis. his allograft function is at baseline. We are holding off on mycophenolate at this time because of COVID-19 infection. Continue the current dose of tacrolimus and steroid. 2. Acute hypoxic respiratory failure. The patient has a recent diagnosis of COVID-19 infection. The patient continues to be dyspneic despite diuresis. refused bronch. 3. Volume status. received lasix IV. cr increasing. will likely cut back on lasix tomorrow if cr continues to increase.
--- NOTE | 2020-02-19 16:29 | PCM.PN.HOSP ---
Patient Problems: Active and Suspected Problems (Last Reviewed 02/12/20 @ 15:[address] Fransisca Saucedo, DO) Leukocytosis (Acute) Acute respiratory failure with hypoxia (Acute) Subjective: Patient seen and examined. He still remains short of breath and was on 12 L at time of review. He was tachypneic. Review of systems otherwise negative. Patient has been accepted at but is awaiting a bed. Vitals/I&O's: Vital Signs Temp Pulse Resp BP Pulse Ox 98.0 F 93 24 H 156/96 H 95 02/19/20 14:30 02/19/20 15:01 02/19/20 14:30 02/19/20 14:30 02/19/20 14:30 Oxygen Flow Rate (L/min) 12 Oxygen Delivery Method Nasal Cannula Weight: 156 lb 8.451 oz Body Mass Index (BMI) 24.9 Intake and Output for Last 24 Hours 02/17/20 02/18/20 02/19/20 23:59 23:59 23:59 Intake Total 820 / 1220 1700 / 2000 330 / 330 Output Total 650 / 1100 2425 / 2875 1250 / 1250 Balance 170 / 120 -725 / -875 -920 / -920 General: Alert, Oriented x3, Cooperative HEENT: Atraumatic, PERRLA, EOMI, Normocephalic Neck: Supple, No JVD, Negative Carotid Bruits Lungs: Diminished breath sounds bibasilarly with some wheezing in all lung tay. 12 L oxygen via nasal cannula and nonrebreather mask. Tachypneic Cardiovascular: Regular rate, Regular Rhythm, Murmur Abdomen: Bowel Sounds Present, Soft, Non Tender, Non-Distended Extremities: No clubbing, No cyanosis, No edema, Capillary Refill Less than 3 Seconds Skin: No rashes, No breakdown Musculoskeletal: No Tenderness to Palpation of Joints or Extremities Neurological: Cranial nerves II-XII grossly intact, Neuro grossly intact Psych/Mental Status: Flat Affect Microbiology Past 72 Hours 02/12/20 13:15 Blood Culture (Wb) - Right Forearm Blood Culture - Final No growth in 5 days. Laboratory Results 02/19/20 05:18: WBC 20.9 H, RBC 3.40 L, Hgb 9.0 L, Hct 31.3 L, MCV 92.1, MCH 26.5 L, MCHC 28.8 L, RDW Std Deviation 49.7 H, RDW Coeff of Genaro 15.0 H, Plt Count 413, MPV 9.2 02/19/20 05:18: Sodium 135 L, Potassium 4.6, Chloride 97 L, Carbon Dioxide 31.0, Anion Gap 7, BUN 67 H, Creatinine 1.97 H, Estim Creat Clear Calc 37.29, Est GFR (MDRD) Af Amer 46 L, Est GFR (MDRD) Non-Af 38 L, BUN/Creatinine Ratio 34.0 H, Glucose 196 H, Calcium 9.4, Magnesium 2.[address] 02/12/20 14:13 IMPRESSION: Bilateral pneumonia, pulmonary edema, or ARDS. Electronically Signed: Bert Kuhn MD at 15:03 EST Tel , Service support , Ankle X-Ray 02/12/20 19:10 IMPRESSION: Normal x-ray examination of the ankle. Electronically Signed: Bert Kuhn MD at 7:05 EST Tel , Service support , Chest X-Ray 02/17/20 16:15 IMPRESSION: Stable bilateral pneumonia. Electronically Signed: Lucas Marcano MD at 17:33 EST , Service support , Current Medications Acetaminophen (Acetaminophen 325 Mg Tablet) 650 mg PO Q6H PRN PRN PRN Reason: Pain Score 1-10/Temp > 100.7 F Last Admin: 02/16/20 04:20 Dose: 650 mg Documented by: Al Hydroxide/Mg Hydroxide (Mag Hydrox/Al Hydrox/Simeth 30 Ml Udc) 30 ml PO Q6H PRN PRN PRN Reason: Gastric Burning Albuterol Sulfate (Albuterol 2.5 Mg/3 Ml Vial.Neb.) 2.5 mg INHALATION Q2H PRN PRN PRN Reason: SOB/Wheezing Last Admin: 02/13/20 12:20 Dose: 2.5 mg Documented by: Apixaban (Apixaban 5 Mg Tablet) 5 mg PO BID [facility] Last Admin: 02/19/20 08:41 Dose: 5 mg Documented by: Aspirin (Aspirin 81 Mg Tab.Chew) 81 mg PO DAILY@0800 [facility] Last Admin: 02/19/20 08:40 Dose: 81 mg Documented by: Atorvastatin Calcium (Atorvastatin Calcium 10 Mg Tablet) 10 mg PO QHS [facility] Last Admin: 02/18/20 21:54 Dose: 10 mg Documented by: Calamine/Phenol (Menthol/Lanolin/Calamine/Znox 113 Gm Tube) 1 applic TOPICAL BID [facility]; Protocol Last Admin: 02/19/20 08:44 Dose: 1 applicatio Documented by: Docusate Sodium (Docusate Sodium 100 Mg Capsule) 100 mg PO BID PRN PRN PRN Reason: Constipation Famotidine (Famotidine 20 Mg Tablet) 20 mg PO DAILY [facility] Last Admin: 02/19/20 08:41 Dose: 20 mg Documented by: Fluticasone Propionate (Fluticasone 0.05% 1 [place] Nasal.Sry) 2 spray NASAL DAILY [facility] Last Admin: 02/19/20 08:42 Dose: 2 spray Documented by: Furosemide (Furosemide 40 Mg/4 Ml Vial) 40 mg IV Q8 [facility] Last Admin: 02/19/20 13:08 Dose: 40 mg Documented by: Guaifenesin (Guaifenesin 10 Ml Udc (200mg/10ml)) 20 ml PO Q4H PRN PRN PRN Reason: COUGH Last Admin: 02/18/20 21:58 Dose: 20 ml Documented by: Lorazepam (Lorazepam 2 Mg/Ml Syringe) 0.5 mg IV Q6H PRN PRN PRN Reason: anxiety with BIPAP Last Admin: 02/19/20 11:44 Dose: 0.5 mg Documented by: Melatonin (Melatonin 3 Mg Tablet) 3 mg PO QHS PRN PRN PRN Reason: INSOMNIA Methylprednisolone (Methylprednisolone 40 Mg/Ml Vial) 40 mg IV Q8 [facility] Last Admin: 02/19/20 13:08 Dose: 40 mg Documented by: Metoprolol Tartrate (Metoprolol Tartrate 100 Mg Tablet) 100 mg PO BID [facility] Last Admin: 02/19/20 08:41 Dose: 100 mg Documented by: Nutritional Formula (Lactose Free) (Glucerna Shake 120 Ml Liquid) 120 ml PO 4X/DAY [facility] Last Admin: 02/19/20 13:08 Dose: 120 ml Documented by: Ondansetron HCl (Ondansetron 4 Mg/2 Ml Vial) 4 mg IV Q8H PRN PRN PRN Reason: NAUSEA/VOMITING Prednisone (Prednisone 5 Mg Tablet) 7.5 mg PO DAILY@0800 [facility] Last Admin: 02/19/20 08:41 Dose: 7.5 mg Documented by: Sodium Chloride (0.9% Saline Lock 10 Ml Syringe) 10 - 40 ml IV UD PRN PRN Reason: SALINE FLUSH Last Admin: 02/19/20 05:55 Dose: 10 ml Documented by: Sodium Chloride (Sodium Chloride 0.65% 1 [place].Btl) 2 spray NASAL TID PRN PRN PRN Reason: NASAL DRYNESS Last Admin: 02/16/20 14:53 Dose: 2 spray Documented by: Tacrolimus (Tacrolimus Anhydrous 1 Mg Capsule) 1 mg PO BID [facility] Last Admin: 02/19/20 08:40 Dose: 1 mg Documented by: Trimethoprim/Sulfamethoxazole (Smz/Tmp Ds Tablet) 0.5 tablet PO DAILYCM [facility] Last Admin: 02/19/20 08:40 Dose: 0.5 tablet Documented by: STROKE Vital Signs/Narrative: Vital Signs Temp Pulse Resp BP Pulse Ox 02/19/20 15:01 93 02/19/20 14:30 98.0 F 96 24 H 156/96 H 95 Medical Necessity - Tobacco Use Smoking Status: Former smoker Tobacco Use: Cigarettes - smoked up until he was admitted with COVID about 1ppd Assessment/Plan All Active Problems (Last Reviewed 02/12/20 @ 15:[address] Fransisca Saucedo, DO) TUCKER (acute kidney injury) (Resolved) Leukocytosis (Acute) Acute respiratory failure with hypoxia (Acute) a fib with rvr (Resolved) #Acute on chronic hypoxic respiratory failure Kayleigh very short of breath and is now on 12 L of oxygen. He is on IV Lasix 40 mg every 8. Sputum cultures showed no growth. 2D echo showed EF of 70%. He is also on IV Solu-Medrol. Patient refuses bronchoscopy at this time. Continue titrating oxygen to maintain saturation above 90%. It is unclear what the exact etiology of his respiratory failure is and concern is that it might be due to his immunosuppressive medications. Plan is to transfer patient to . He has been accepted there but is awaiting a bed. #paroxysmal afib Rate controlled. Stable. On amiodarone, metoprolol and Eliquis # Indeterminate troponin likely due to demand ischemia from respiratory failure. 2D echo showed EF of 70% with stage II diastolic dysfunction. #Mild transaminitis resolved #ESRD with history of renal transplant: nephrology on board. on prograf, prednisone and bactrim #Hypertension: stable. on metoprolol #Hyperlipidemia: on statin GERD: Continue famotidine #Chronic normocytic anemia: Stable DVT prophylaxis: on eliquis Disposition: accepted at . awaiting a bed. Inpatient E&M: [id number] [facility] H[facility] L3
[2020-02-19] MEDS: MELATONIN 3 MG TABLET PO (21:07)
[2020-02-19] MEDS: Acetaminophen 325 MG Tablet 650 MG PO (21:07)
--- NOTE | 2020-02-19 23:00 | CPS ---
pt refused BIPAP
[2020-02-20] VITALS: BP 152/94; PULSE 98; RESP 31; TEMP 37; O2SAT 92
[2020-02-20 01:00] VITALS: BP 158/91; PULSE 94; RESP 19; TEMP 36.8; O2SAT 93
[2020-02-20 03:00] VITALS: BP 152/92; PULSE 90; PULSE 91; RESP 19; TEMP 36.7; O2SAT 95
--- NOTE | 2020-02-20 03:15 | NURSING ---
Bed available at [facility], update to Dr. Long at this time.
--- NOTE | 2020-02-20 04:08 | NURSING ---
Report called to [facility] to Riya AMAYA at this time.
--- NOTE | 2020-02-20 04:36 | NURSING ---
Voicemail left for Naveed De La Rosa (brother/person to notify) regarding transfer to .
[2020-02-20] MEDS: LORazepam 2 MG/ML Syringe 0.5 MG IV (04:38)
[2020-02-20] MEDS: 0.9% Saline Lock 10 ML Syringe IV (04:39)
--- NOTE | 2020-02-20 11:30 | CASEMGMT ---
SW completed a Palliative Care screening tool for patient. He scored an 8. With this score he would be a good Palliative Care referral. However, patient was transferred to [facility] so there was no discussion with patient this visit. Jessica CHAU
== END 2020-02-20 05:29 | disposition short-term general hospital (02) | DRG 291 ==
LOC: ED 15:38 → PCU 02-13 07:12
PROVIDERS: Internal Medicine; Nurse Practitioner Family; Admitting Provider Internal Medicine; Emergency Provider Emergency Medicine; PCP Family Medicine; Visit Provider Student in an Organized Health Care Education/Training Program
DX: I11.0 Hypertensive heart disease with heart failure (principal); J96.21 Acute and chronic respiratory failure with hypoxia; J12.82 Pneumonia due to coronavirus disease 2019; I50.31 Acute diastolic (congestive) heart failure; E43 Unspecified severe protein-calorie malnutrition; I24.8 Other forms of acute ischemic heart disease; Z94.0 Kidney transplant status; D84.821 Immunodeficiency due to drugs; I48.0 Paroxysmal atrial fibrillation; R74.01 Elevation of levels of liver transaminase levels; E78.5 Hyperlipidemia, unspecified; K21.9 Gastro-esophageal reflux disease without esophagitis; D63.1 Anemia in chronic kidney disease; N18.30 Chronic kidney disease, stage 3 unspecified; Z79.02 Long term (current) use of antithrombotics/antiplatelets; Z79.899 Other long term (current) drug therapy; Z87.891 Personal history of nicotine dependence; I35.0 Nonrheumatic aortic (valve) stenosis; Q63.9 Congenital malformation of kidney, unspecified; B94.8 Sequelae of other specified infectious and parasitic diseases; Z68.24 Body mass index [BMI] 24.0-24.9, adult
CPT/HCPCS: 36415; 36600; 71045; 71046; 71250; 73610; 80048; 80053; 80076; 80197; 80202; 81001; 82803; 83605; 83735; 83880; 84100; 84145; 84484; 85025; 85027; 85610; 85730; 87040; 87070; 87086; 87088; 87205; 87641; 93005; 93306; 94002; 94003; 94640; 94762; 96360; 97162; 97166; 97530; 99251; 99285; J7040; J7050; A4216; G0463; J1940